=== PATIENT | female | born 1930 | race Caucasian/White ===

== ENCOUNTER 2017-06-28 21:51 | Emergency (ER) | payer MEDICARE, OTHER ==
[~2017-06-28] VITALS: Ht 165.1 cm; Wt 48.3 kg
[~2017-06-28 21:51] MED LIST: ASPI-586 PO; CEPH-38 PO; CLOP75TA28 PO; DILT180C84 PO; HYDR1CAP2 PO; LISI10TA2 PO; PRD50T PO; RIVA15TA PO
--- OUTSIDE RECORDS SUMMARY | 2017-06-28 21:55 | XMS REPORT | Continuity of Care Document ---
Author Author [facility] Organization [facility] Address Unknown Phone Unavailable Allergies Active Description Code Type Severity Reaction Onset Reported/Identified Relationship to Patient Clinical Status Yes No Known Drug Allergies [id number] Drug Allergy Unknown N/ A 05/17/2010 Medications Problems Date Dx Coded Attending Type Code Diagnosis Diagnosed By 05/17/2010 Ot 724.2 05/17/2010 Ot 729.5 05/24/2010 Ot 473.0 05/24/2010 Ot 729.1 05/24/2010 Ot 729.5 05/24/2010 Ot 780.79 05/24/2010 Ot 791.9 04/08/2012 Ot 682.6 05/08/2015 Ot 721.3 05/08/2015 Ot 733.90 05/08/2015 Ot 737.30 05/10/2015 QAMAR OLSON FACC, ALI FACP CCDS Ot I25.10 05/10/2015 QAMAR OLSON FACC, ALI FACP CCDS Ot I25.110 05/10/2015 QAMAR OLSON FACC, ALI FACP CCDS Ot I25.5 05/10/2015 QAMAR OLSON FACC, ALI FACP CCDS Ot I45.10 05/10/2015 QAMAR OLSON FACC, ALI FACP CCDS Ot I47.1 05/10/2015 QAMAR OLSON FACC, ALI FACP CCDS Ot I48.0 05/10/2015 QAMAR OLSON FACC, ALI FACP CCDS Ot I50.22 05/10/2015 QAMAR OLSON FACC, ALI FACP CCDS Ot I50.9 05/10/2015 QAMAR OLSON FACC, ALI FACP CCDS Ot I83.022 05/10/2015 QAMAR OLSON FACC, ALI FACP CCDS Ot I83.222 05/10/2015 QAMAR OLSON FACC, ALI FACP CCDS Ot I87.2 05/10/2015 QAMAR OLSON FACC, ALI FACP CCDS Ot L97.229 05/10/2015 QAMAR OLSON FACC, ALI FACP CCDS Ot R73.01 05/10/2015 QAMAR OLSON FACC, ALI FACP CCDS Ot Z82.49 05/10/2015 QAMAR OLSON FACC, ALI FACP CCDS Ot Z86.79 05/21/2015 Ot 721.3 05/21/2015 Ot 733.90 05/21/2015 Ot 737.30 06/13/2015 QAMAR OLSON FACC, ALI FACP CCDS Ot I25.10 06/13/2015 QAMAR OLSON FACC, ALI FACP CCDS Ot I25.5 06/13/2015 QAMAR OLSON FACC, ALI FACP CCDS Ot I50.22 06/13/2015 QAMAR LEBLANCC, ALI FACP CCDS Ot M79.89 09/21/2015 Ot 721.3 09/21/2015 Ot 733.90 09/21/2015 Ot 737.30 09/21/2015 QAMAR LEBLANCC, ALI FACP CCDS Ot I25.10 09/21/2015 QAMAR LEBLANC, ALI FACP CCDS Ot I25.5 09/21/2015 QAMAR LEBLANC, ALI FACP CCDS Ot I50.22 09/21/2015 QAMAR LEBLANC, ALI FACP CCDS Ot M79.89 10/17/2015 ELEN LOZANO MEDICAL ADMINISTRATIVE SPECIALIST Ot I25.10 10/17/2015 ELEN LOZANO L MEDICAL ADMINISTRATIVE SPECIALIST Ot I25.5 10/17/2015 ELEN LOZANO L MEDICAL ADMINISTRATIVE SPECIALIST Ot I50.22 10/25/2015 QAMAR LEBLANCC, ALI FACP CCDS Ot I25.10 10/25/2015 QAMAR OLSON FACC, ALI FACP CCDS Ot I25.5 10/25/2015 QAMAR OLSON FACC, ALI FACP CCDS Ot I50.22 10/25/2015 QAMAR LEBLANCC, ALI FACP CCDS Ot Z91.14 11/08/2015 QAMAR LEBLANCC, ALI FACP CCDS Ot I25.10 11/08/2015 QAMAR LEBLANCC, ALI FACP CCDS Ot I25.5 11/08/2015 QAMAR LEBLANCC, ALI FACP CCDS Ot I50.22 11/08/2015 QAMAR LEBLANCC, ALI FACP CCDS Ot Z91.14 11/30/2015 QAMAR OLSON FACC, ALI FACP CCDS Ot I25.10 ATHSCL HEART DISEASE OF [place] CORONARY 11/30/2015 QAMAR OLSON FACC, DAWNA FACP CCDS Ot 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 11/30/2015 QAMAR OLSON FACC, DAWNA FACP CCDS Ot I50.22 CHRONIC SYSTOLIC (CONGESTIVE) HEART FAIL 11/30/2015 QAMAR OLSON FACC, DAWNA FACP CCDS Ot Z91.14 PATIENT'S OTHER NONCOMPLIANCE WITH MEDIC Procedures Results Encounters ACCT No. Visit Date/Time Discharge Status Pt. Type Provider Facility Loc./Unit Complaint [id number] 11/07/2015 13:41:00 2015 23:59:59 CLS Outpatient QAMAR OLSON FACC ALI FACP CCDS [facility] LAB [id number] 10/03/2015 12:15:00 2015 23:59:59 CLS Outpatient QAMAR OLSON FACC ALI FACP CCDS [facility] CARD [id number] 09/21/2015 14:10:00 2015 23:59:59 CLS Outpatient ELEN LOZANO [facility] LAB [id number] 05/21/2015 08:29:00 2014 23:59:59 CLS Outpatient QAMAR OLSON FACC ALI FACP CCDS [facility] LAB [id number] 05/15/2015 14:40:00 2014 23:59:59 CLS Preadmit GLORIA LEE MD [facility] WOUNDCARE [id number] 05/06/2015 20:38:00 2014 18:47:00 DIS Inpatient QAMAR OLSON FACC ALI FACP CCDS [facility] ICU [id number] 06/28/2017 21:52:00 ACT Emergency DEMETRIA DELGADO MD [facility] ER LEG INJ [id number] 05/08/2015 14:29:00 Document Registration [id number] 04/08/2012 18:10:00 Document Registration [id number] 11/22/2010 11:38:00 Document Registration [id number] 05/24/2010 13:57:00 Document Registration
[2017-06-28] MEDS ORDERED: fentaNYL INJECTION 100 MCG/2 ML AMP IVP STA (22:02)
--- NOTE | 2017-06-28 22:02 | ED Lower Extremity ---
General Chief Complaint: Lower Extremity Stated Complaint: LEG INJ Source: patient Exam Limitations: no limitations History of Present Illness Time seen by provider: 21:46 Initial Comments Here with complaint of left leg injury. This occurred about 1730 p.m. tonight. Apparently she was going into putting a load of laundry when she stumbled. She caught her leg on a powerbuilder and cut it. This caused her to sit back onto her left hip. Apparently she had a bruise developing and she put an ice pack on it that got somewhat worse. A tourniquet was apparently applied at some point and the wound developed a very large hematoma that was expanding. EMS was ultimately summoned. They did cover it with a dressing after the wound started oozing through. Complains of pain to the area of injury as well as to the left hip. Denies hitting her head. She is on blood thinners. Did not take her medicine earlier today apparently. She does not know why she did not take her medicines. Complains of some pain to the area of concern. EMS wrapped with gauze and Kerlix. Onset: this evening Severity: moderate Pain/Injury Location: left hip, left leg Method of Injury: fell, incised Modifying Factors: Improves With Immobilization, Worse With Movement Allergies and Home Medications Allergies Coded Allergies: No Known Drug Allergies (Unverified , 05/17/10) Home Medications Clopidogrel Bisulfate 75 Mg Tablet, 75 MG PO DAILY, #30 Ref 5 Prescribed by: ELEN LOZANO on 05/10/15 0853 Diltiazem HCl 180 Mg Cap.er.24h, 180 MG PO DAILY, #30 Ref 5 Prescribed by: ELEN LOZANO on 05/10/15 0853 Lisinopril 10 Mg Tablet, 10 MG PO DAILY, #30 Ref 5 Prescribed by: ELEN LOZANO on 05/10/15 0951 Rivaroxaban 15 Mg Tablet, 15 MG PO DAILY@1700, #30 Ref 5 Prescribed by: ELEN LOZANO on 05/10/15 0853 Constitutional: see HPI, No chills, No fever Respiratory: no symptoms reported, No short of breath, No wheezing Cardiovascular: no symptoms reported, No chest pain, No edema Gastrointestinal: No abdominal pain, No nausea, No vomiting Genitourinary: no symptoms reported Musculoskeletal: see HPI, joint pain, muscle pain Skin: see HPI, change in color, lesions, No rash Psychiatric/Neurological: No Symptoms Reported All Other Systems Reviewed Negative Unless Noted: Yes Past Omyjchs-Frmprg-Frrihz Hx Patient Social History Alcohol Use: Denies Use Recreational Drug Use: No Smoking Status: Never a Smoker 2nd Hand Smoke Exposure: No Recent Foreign Travel: No Contact w/Someone Who Travel: No Recent Hopitalizations: No Immunizations Up To Date Tetanus Booster (TDap): Unknown Seasonal Allergies Seasonal Allergies: No Surgeries History of Surgeries: Yes Surgeries: 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 Respiratory History of Respiratory Disorde: No Cardiovascular History of Cardiac Disorders: No (AL [place] 86) Cardiac Disorders: Heart Attack Neurological History of Neurological Disord: No 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: 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 Gastrointestinal History of Gastrointestinal Di: No Musculoskeletal History of Musculoskeletal Dis: No Endocrine History of Endocrine Disorders: No HEENT HEENT Disorders: Glaucoma Cancer History of Cancer: Yes (2010) Cancer: Skin Psychosocial History of Psychiatric Problem: No Integumentary History of Skin or Integumenta: No Blood Transfusions History of Blood Disorders: No Adverse Reaction to a Blood Tr: No Reviewed Nursing Assessment Reviewed/Agree w Nursing PMH: Yes Family Medical History Significant Family History: No Pertinent Family Hx Family Medial History: Hypertension 19 FATHER Physical Exam Vital Signs Vital Sign - Last 12Hours 06/28/ 21:55 Temp 97.1 Pulse 91 Resp 16 B/P (MAP) 167/108 Pulse Ox 97 O2 Delivery Room Air Capillary Refill : General Appearance: WD/WN, mild distress (leg pain) HEENT: PERRL/EOMI, pharynx normal, other (no evidence of head injury) Neck: full range of motion, supple Cardiovascular: regular rate, rhythm, no murmur Respiratory: lungs clear, normal breath sounds Gastrointestinal: non tender, soft Back: normal inspection, no CVA tenderness, no vertebral tenderness Hips: left hip other (mild tenderness to the left hip without any deformity or bruising noted.) Legs: left leg other (8 cm laceration to the lateral aspect of the left lower leg. There is a large hematoma within the wound and the skin is tented quite significantly. Wound extends into the fascial layer but not into the muscle.) Knees: bilateral knee non-tender, bilateral knee normal inspection Ankles: bilateral ankle non-tender, bilateral ankle normal inspection, bilateral ankle normal range of motion, bilateral ankle no evidence of injury Feet: bilateral foot non-tender, bilateral foot normal inspection, bilateral foot normal range of motion Neurologic/Psychiatric: alert, oriented x 3 Skin: ecchymosis (large area of ecchymosis to the lateral left leg under skin wound with large clot arresting from wound.), other (entire as noted above.) Progress/Results/Core Measures Results/Orders Lab Results Laboratory Tests Test 06/28/17 21:57 06/28/17 22:29 Range/Units White Blood Count 5.7 4.3-11.0 10^3/uL Red Blood Count 4.04 L 4.35-5.85 10^6/uL Hemoglobin 13.0 11.5-16.0 G/DL Hematocrit 39 35-52 % Mean Corpuscular Volume 97 80-99 FL Mean Corpuscular Hemoglobin 32 25-34 PG Mean Corpuscular Hemoglobin Concent 33 32-36 G/DL Red Cell Distribution Width 13.3 10.0-14.5 % Platelet Count 202 130-400 10^3/uL Mean Platelet Volume 9.7 7.4-10.4 FL Neutrophils (%) (Auto) 48 42-75 % Lymphocytes (%) (Auto) 39 12-44 % Monocytes (%) (Auto) 13 H 0-12 % Eosinophils (%) (Auto) 1 0-10 % Basophils (%) (Auto) 0 0-10 % Neutrophils # (Auto) 2.8 1.8-7.8 X 10^3 Lymphocytes # (Auto) 2.2 1.0-4.0 X 10^3 Monocytes # (Auto) 0.7 0.0-1.0 X 10^3 Eosinophils # (Auto) 0.0 0.0-0.3 10^3/uL Basophils # (Auto) 0.0 0.0-0.1 10^3/uL Sodium Level 140 135-145 MMOL/L Potassium Level 5.0 3.6-5.0 MMOL/L Chloride Level 106 98-107 MMOL/L Carbon Dioxide Level 25 21-32 MMOL/L Anion Gap 9 5-14 MMOL/L Blood Urea Nitrogen 31 H 7-18 MG/DL Creatinine 0.84 0.60-1.30 MG/DL Estimat Glomerular Filtration Rate > 60 BUN/Creatinine Ratio 37 Glucose Level 110 H 70-105 MG/DL Calcium Level 8.6 8.5-10.1 MG/DL Total Bilirubin 0.6 0.1-1.0 MG/DL Aspartate Amino Transf (AST/SGOT) 27 5-34 U/L Alanine Aminotransferase (ALT/SGPT) 22 0-55 U/L Alkaline Phosphatase 92 40-136 U/L Total Protein 6.5 6.4-8.2 GM/DL Albumin 3.7 3.2-4.5 GM/DL My Orders Orders - DEMETRIA DELGADO MD Pelvis With Left Hip 2-3 Views (06/28/17 21:59) Cbc With Automated Diff (06/28/17 21:59) Comprehensive Metabolic Panel (06/28/17 21:59) Fentanyl Injection (Sublimaze Injection (06/28/17 22:02) Lisinopril Tablet (Zestril Tablet) (06/28/17 23:00) Cephalexin Capsule (Keflex Capsule) (06/28/17 23:16) Medications Given in ED Current Medications Medications Dose Ordered Sig/Isaac Route Start Time Stop Time Status Last Admin Dose Admin Lisinopril 10 mg ONCE ONCE PO 06/28/17 23:00 06/28/17 23:01 DC 06/28/17 22:59 10 MG Vital Signs/I&O Vital Sign - Last 12Hours 06/28/17 06/28/17 06/28/17 21:55 22:07 23:29 Temp 97.1 97.1 Pulse 91 81 Resp 16 16 B/P (MAP) 167/108 134/102 Pulse Ox 97 97 O2 Delivery Room Air Room Air Progress Note : Progress Note Seen and evaluated. Labs ordered. X-ray left hip and pelvis ordered. Wound evaluated and noted to have large clot within the wound. This was expressed and clot totaling the size of a tennis ball expressed from the wound. Wound was cleaned with copious amounts of normal saline and covered with Xeroform gauze dressing. This appears to be skin tear with clot formation. Reportedly, family member applied a tourniquet above wound with bleeding was noted and this caused significant worsening of size and ultimately bleeding began. Patient was not bleeding prior to this per report. It appears bruising was the result of the initial injury and skin tear and laceration was result of significant hematoma formation. 2320: Lisinopril 10 mg by mouth given. Keflex 500 mg by mouth. Blood pressure decreased to 134/102 and patient resting comfortably. We will continue her on outpatient Keflex 3 times a day and have her follow-up for wound check on Thursday. Discharged home with return precautions. Patient verbalize understanding of instructions and agreement with plan. Diagnostic Imaging Diagonstic Imaging: Xray Plain Films/CT/US/NM/MRI: pelvis, hip Comments X-ray left hip and pelvis shows no acute fracture Reviewed: Reviewed by Me Departure Impression Impression: Primary Impression: Laceration of left lower extremity Qualified Codes: S81.812A - Laceration without foreign body, left lower leg, initial encounter Additional Impression: Hematoma of left lower extremity Qualified Codes: S80.12XA - Contusion of left lower leg, initial encounter Disposition: HOME, SELF-CARE Condition: Improved Departure-Patient Inst. Decision time for Depature: 23:30 Referrals: NO,LOCAL PHYSICIAN (PCP/Family) Primary Care Physician Patient Instructions: HEMATOMA, Laceration Repair Add. Discharge Instructions: All discharge instructions reviewed with patient and/or family. Voiced understanding. Keep dressing in place until Thursday. Return Thursday morning after 1030 for a wound recheck and redressing. Take medications as directed. You may change dressing if it becomes soiled but otherwise leave in place until wound check on Thursday. You may use ice packs over the affected area for pain as needed. Return for worse pain, fever, red streaks up the leg, increased swelling or other concerns as needed. Follow-up with your Dr. in a few days for recheck as needed. You should get local physician for generalized care other than the service now developer as discussed. Scripts Cephalexin (Cephalexin) 500 Mg Tablet 500 MG PO TID, #20 TAB 0 Refills Prov: DEMETRIA DELGADO MD 06/29/17 DEMETRIA DELGADO MD Jun 28, 2017 22:02
[2017-06-28 22:06] LABS: BASOPHILS % (AUTO) 0 % (0-10); EOSINOPHILS % (AUTO) 1 % (0-10); LYMPHOCYTES # (AUTO) 2.2 X 10^3 (1.0-4.0); LYMPHOCYTES % (AUTO) 39 % (12-44); MEAN CORPUSCULAR HEMOGLOBIN 32 PG (25-34); MEAN CORPUSCULAR HGB CONC 33 G/DL (32-36); MEAN CORPUSCULAR VOLUME 97 FL (80-99); MEAN PLATELET VOLUME 9.7 FL (7.4-10.4); MONOCYTES # (AUTO) 0.7 X 10^3 (0.0-1.0); MONOCYTES % (AUTO) 13 % (0-12); NEUTROPHILS # (AUTO) 2.8 X 10^3 (1.8-7.8); NEUTROPHILS % (AUTO) 48 % (42-75); PLATELET COUNT 202 10^3/uL (130-400); RED BLOOD COUNT 4.04 10^6/uL (4.35-5.85); RED CELL DISTRIBUTION WIDTH 13.3 % (10.0-14.5); WHITE BLOOD COUNT 5.7 10^3/uL (4.3-11.0)
[2017-06-28 22:56] LABS: ALANINE AMINOTRANSFERASE 22 U/L (0-55); ALBUMIN 3.7 GM/DL (3.2-4.5); ANION GAP 9 MMOL/L (5-14); ASPARTATE AMINO TRANSFERASE 27 U/L (5-34); BILIRUBIN,TOTAL 0.6 MG/DL (0.1-1.0); BLOOD UREA NITROGEN 31 MG/DL (7-18); BUN/CREATININE RATIO 37; CALCIUM 8.6 MG/DL (8.5-10.1); CARBON DIOXIDE 25 MMOL/L (21-32); CHLORIDE 106 MMOL/L (98-107); CREATININE SERUM 0.84 MG/DL (0.60-1.30); GFR ESTIMATED > 60; GLUCOSE 110 MG/DL (70-105); SODIUM 140 MMOL/L (135-145); TOTAL PROTEIN 6.5 GM/DL (6.4-8.2)
[2017-06-28] MEDS ORDERED: lisINopril 10 MG (PRINIVIL) TAB PO ONE (23:00)
[2017-06-28] MEDS ORDERED: CEPHALEXIN 250 MG (KEFLEX) CAP PO STA (23:16)
[2017-06-28 23:29] VITALS: BP 134/102
[2017-06-29] MEDS ORDERED: CEPH500T PO (00:14)
[2017-06-29 00:27] VITALS: BP 132/99
--- NOTE | 2017-06-29 08:40 | Diagnostic Imaging Report ---
INDICATION: Fall with left hip pain, soreness. TECHNIQUE: AP pelvis along with 2 views left hip 10:39 PM. CORRELATION STUDY: None. FINDINGS: Large amount of overlying bowel gas and stool obscures detail. Given this, the pelvis is intact. Degenerative changes at the L4-L5 level. Right hip joint with mild narrowing but otherwise maintained. Left hip demonstrates joint space narrowing. Femoral head/acetabular relationship otherwise maintained. Mild osteophyte formation off the superior aspect of the acetabulum. IMPRESSION: Negative for acute displaced pelvic and/or left hip fracture. Joint space narrowing of both hips is present. Dictated by: Dictated on workstation # [id number]
== END 2017-06-29 00:12 | disposition home or self-care (01) ==
LOC: EDUNIT# 21:51 → ER 21:52
DX: S81.812A Laceration without foreign body, left lower leg, initial encounter (principal); I25.2 Old myocardial infarction; Z90.710 Acquired absence of both cervix and uterus; W29.2XXA Contact with other powered household machinery, initial encounter
CPT/HCPCS: 36415; 80053; 85025

== ENCOUNTER 2017-06-30 10:47 | Emergency (ER) | payer MEDICARE, OTHER ==
[~2017-06-30] VITALS: Ht 165.1 cm; Wt 48.3 kg
[~2017-06-30 10:47] MED LIST changes: +CEPH500T PO
--- NOTE | 2017-06-30 11:24 | ED Suture Removal/Wound Check ---
Suture/Wound Re-check General Appearance: WD/WN, no apparent distress Skin Exam: normal color, warm/dry Physical Exam Vital Signs Vital Sign - Last 12Hours 06/30/17 11:13 Pulse 72 Resp 18 B/P (MAP) 129/66 Pulse Ox 98 O2 Delivery Room Air Capillary Refill : General Appearance: WD/WN Respiratory: no respiratory distress, no accessory muscle use Gastrointestinal: non tender, soft Skin: normal color, warm/dry Skin Problem Location: lower extremities (large traumatic wound to the left lateral lower leg. No surrounding erythema. No purulent drainage. Small amount of sinus drainage. We will recover with oil emulsion dressing, 2 x 2, coban) Comments Pt does have 2 corns on her foot, one on the heel and one on the forefoot. These are painful when she walks and son believes she may have had pain from this which initially caused the fall the other day. I did use a 10blade scalpel to shave these down, the one on the heel got a bit deep and did begin to ooze blood so further shaving of this lesion was discontinued. Covered with antibiotic ointment and bandaid. Upon standing, pt reported immediate improvement in the pain from putting pressure on these. Departure Communication (Admissions) Progress Notes I did make an appointment for the patient with Dr. Figueroa at [facility] wound care tomorrow at 930 in the morning. Pt has some brownish discoloration and scaling of medial aspect of the right leg of PVD so Im concerned about wound healing in her. Impression Impression: Primary Impression: Traumatic open wound of lower leg Additional Impression: Visit for wound check Disposition: 01 HOME, SELF-CARE Condition: Stable Departure-Patient Inst. Decision time for Depature: 11:43 Referrals: BELTRAN MITCHELL MD NO,LOCAL PHYSICIAN (PCP) Primary Care Physician Patient Instructions: Wound Care (DC) Add. Discharge Instructions: 1. Leave this dressing in place until you are seen by Dr. Figueroa. He will see her tomorrow morning at 930 here in the hospital. She should arrive at 915 a.m. All discharge instructions reviewed with patient and/or family. Voiced understanding. KELLY SIMENTAL APRN Jun 30, 2017 11:24
[2017-06-30 11:50] VITALS: BP 129/66
== END 2017-06-30 11:50 | disposition home or self-care (01) ==
LOC: EDUNIT# 10:47 → ER 10:49
DX: S89.92XD Unspecified injury of left lower leg, subsequent encounter (principal); W19.XXXD Unspecified fall, subsequent encounter

== ENCOUNTER → 2017-07-02 | Outpatient (CLI) | payer MEDICARE, OTHER | LOC: WOUNDCARE 14:08 | PROVIDERS: ATTEND Nurse Practitioner | DX: S81.812D Laceration without foreign body, left lower leg, subsequent encounter (principal); L03.116 Cellulitis of left lower limb ==

== ENCOUNTER → 2017-07-08 | Outpatient (CLI) | payer MEDICARE, OTHER ==
[~2017-07-08] MED LIST changes: +ACET325T38 PO; +ASPI-983 PO; +ASPI-999 PO; +CLOP75TA69 PO; +LISI-556 PO; +METO-351 PO; +NAPR220T66 PO
== END ==
LOC: WOUNDCARE 12:51
PROVIDERS: ATTEND Surgery
DX: I70.242 Atherosclerosis of native arteries of left leg with ulceration of calf (principal); L97.222 Non-pressure chronic ulcer of left calf with fat layer exposed; I87.332 Chronic venous hypertension (idiopathic) with ulcer and inflammation of left lower extremity; S81.812A Laceration without foreign body, left lower leg, initial encounter
CPT/HCPCS: 99212

== ENCOUNTER 2017-07-10 12:22 | Day surgery (SDC) | payer MEDICARE, OTHER ==
[~2017-07-10] VITALS: Ht 165.1 cm; Wt 48.3 kg
[2017-07-10] VITALS (12 sets, daily range): BP systolic 141–170; BP diastolic 71–101
[~2017-07-10 12:22] MED LIST changes: -ACET325T38 PO; -ASPI-983 PO; -ASPI-999 PO; -CLOP75TA69 PO; -LISI-556 PO; -METO-351 PO; -NAPR220T66 PO
[2017-07-10] MEDS ORDERED: HEParin (CATH LAB) 2,000 ML IV ONE (12:30)
[2017-07-10] MEDS ORDERED: LIDOCAINE 1% INJ 50 ML (XYLOCAINE) VIAL ONE (12:30)
[2017-07-10] MEDS ORDERED: NS IV 1000 ML 1,000 ML ONE (12:30)
[2017-07-10] MEDS ORDERED: NS IV 1000 ML 1,000 ML IV SCH ×3 (12:45→16:38)
[2017-07-10 12:58] LABS: MEAN PLATELET VOLUME 9.4 FL (7.4-10.4); RED BLOOD COUNT 3.75 10^6/uL (4.35-5.85); RED CELL DISTRIBUTION WIDTH 13.8 % (10.0-14.5); WHITE BLOOD COUNT 5.8 10^3/uL (4.3-11.0)
[2017-07-10 13:10] LABS: INR 1.2 (0.8-1.4); PROTHROMBIN TIME PATIENT 14.8 SEC (12.2-14.7)
[2017-07-10] MEDS ORDERED: ASPI-983 PO (13:12)
[2017-07-10] MEDS ORDERED: LISI-556 PO (13:13)
[2017-07-10] MEDS ORDERED: MIDAZOLAM 2 MG/2 ML (VERSED) VIAL ONE ×2 (13:14→14:35)
[2017-07-10] MEDS ORDERED: diphenhydrAMINE 50 MG/ML INJ (BENADRYL) ONE (13:14)
[2017-07-10] MEDS ORDERED: fentaNYL INJECTION 100 MCG/2 ML AMP ONE (13:14)
[2017-07-10] MEDS ORDERED: NAPR220T66 PO (13:15)
[2017-07-10 13:21] LABS: ALANINE AMINOTRANSFERASE 14 U/L (0-55); ANION GAP 11 MMOL/L (5-14); ASPARTATE AMINO TRANSFERASE 19 U/L (5-34); BILIRUBIN,TOTAL 0.7 MG/DL (0.1-1.0); BLOOD UREA NITROGEN 27 MG/DL (7-18); BUN/CREATININE RATIO 32; CARBON DIOXIDE 23 MMOL/L (21-32); CHLORIDE 106 MMOL/L (98-107); CREATININE SERUM 0.84 MG/DL (0.60-1.30); GFR ESTIMATED > 60; GLUCOSE 99 MG/DL (70-105); POTASSIUM 4.7 MMOL/L (3.6-5.0); SODIUM 140 MMOL/L (135-145); TOTAL PROTEIN 7.2 GM/DL (6.4-8.2)
[2017-07-10] MEDS ORDERED: INFLUENZA TRIvalent 2017-2018 0.5 ML/45 MCG SYR IM ONE (14:00)
[2017-07-10] MEDS ORDERED: HEParin 1000 UNIT/ML (10ML VIAL) FOR BOLUS ONE (14:21)
[2017-07-10] MEDS ORDERED: NITROGLYCERIN DRIP 25 MG/D5W 250 ML IV ONE (15:53)
--- NOTE | 2017-07-10 16:37 | Cardiac Procedure Note-CS/ASA ---
Pre-Procedure Note Pre-Op Procedure Note H&P Reviewed The H&P was reviewed, patient examined and no changes noted. Date H&P Reviewed: Jul 10, 2017 Time H&P Reviewed: 14:00 Conscious Sedation Pre-Proced Time Reviewed: 14:00 ASA Class: 3 Airway Mallampati Classification: ([place] appropriate class) I. II. III, IV Lungs Heart ASA score ASA 1: a normal healthy patient ASA 2: a patient with a mild systemic disease (mid diabetes, controlled hypertension, obesity ASA 3: a patient with a severe systemic disease that limits activity (angina , COPD, prior Myocardial infarction) ASA 4: a patient with an incapacitating disease that is a constant threat to life (CHF, renal failure) ASA 5: a moribund patient not expected to survive 24 hrs. (ruptured aneurysm) ASA 6: a declared brain patient whose organs are being harvested. For emergent operations, add the letter E after the classification Grade 2 Sedation Plan: Analgesia, Amnesia, Plan communicated to team members, Discussed options with patient/fam, Discussed risks with patient/fam Note The patient is an appropriate candidate to undergo the planned procedure, sedation, and anesthesia. The patient immediately re-assessed prior to indication. DAWNA FOOTE MD FACP FAC CCDS Jul 10, 2017 16:37
[2017-07-10] MEDS ORDERED: ASPIRIN 81 MG CHEW (CHILDREN'S ASA) ONE (16:39)
[2017-07-10] MEDS ORDERED: CLOPIDOGREL 75 MG (PLAVIX) TABLET ONE ×2 (16:39→16:51)
[2017-07-10] MEDS ORDERED: ACETAMINOPHEN 325 MG TABLET/CAPLET (TYLENOL) PO PRN (16:45)
[2017-07-10] MEDS ORDERED: PATIENT MAY USE OWN MEDS, ALL PO SCH (16:45)
--- NOTE | 2017-07-10 17:09 | Cardiology Discharge Summary ---
Diagnosis/Chief Complaint Date of Admission 07/10/17 Date of Discharge 07/11/17 Final/Discharge Diagnosis Non-healing wound on the lateral aspect of L leg (leading to peripheral arterial eval and interventions to the L leg, as noted below) PAD. Peripheral angio of 07/10/17: ectatic abdominal aorta, aorto-iliac calcification, mod dz of renal arteries, diffuse mod disease of both sup fems, 90% ostial and prox stenosis of the L sup fem, single vessel (ant tibial) run off in both legs with 90% ostial stenoses of both ant tibs Peripheral PCI on 07/10/17: balloon angioplasty of ostial L ant tib that reduced 90% ostial stenosis to less than 30% residual, balloon angioplasty and stenting (Absolute Pro 7 x 80 stent, dilated to 5 mm wilder) to the L prox sup fem that reduced stenosis form 90% to 0% residual Ischemic cardiomyopathy. Card cath of 05/08/15 showed coronary artery disease, primarily single-vessel, primarily consisting of 90% mid vessel stenosis of the left anterior descending, to which successful stenting was carried out with Promus Premier 3 x 12 mm stent with reduction of stenosis to 0% residual. 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 She has refused ICD placement Hypertension Impaired fasting glucose Family h/o early CAD 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 u/s of 02/15/16 Noncompliance with several med instructions and several meds (including beta- blockers and diuretics and statins) Chief Complaint/HPI Chief Complaint/HPI Please refer to H&P (office note of 07/08/17) for details of admission Please refer to peripheral angio and PCI report for details of procedure Plavix resumed during this hosp Have also asked to try beta-blockers again Outpatient f/u is advised Discharge Summary Hospital Course Pending Labs Laboratory Tests 07/10/17 12:52: White Blood Count 5.8, Red Blood Count 3.75, Hemoglobin 12.1, Hematocrit 37, Mean Corpuscular Volume 100, Mean Corpuscular Hemoglobin 32, Mean Corpuscular Hemoglobin Concent 32, Red Cell Distribution Width 13.8, Platelet Count 340, Mean Platelet Volume 9.4, Prothrombin Time 14.8, INR Comment 1.2, Activated Partial Thromboplast Time 33, Sodium Level 140, Potassium Level 4.7, Chloride Level 106, Carbon Dioxide Level 23, Anion Gap 11, Blood Urea Nitrogen 27, Creatinine 0.84, Estimat Glomerular Filtration Rate > 60, BUN/Creatinine Ratio 32, Glucose Level 99, Calcium Level 9.0, Total Bilirubin 0.7, Aspartate Amino Transf (AST/SGOT) 19, Alanine Aminotransferase (ALT/SGPT) 14, Alkaline Phosphatase 104, Total Protein 7.2, Albumin 4.0 Discussion & Recommendations Home Medications Reviewed patient Home Medication Reconciliation Form Discharge Home Medications: Reviewed and agree with Discharge Medication list on patient's Discharge Instruction sheet DAWNA FOOTE MD FACP FAC CCDS Jul 10, 2017 17:09
--- NOTE | 2017-07-10 17:14 | Discharge Inst-Post CATH ---
Discharge Inst-CATH Post Cardiac Cath D/C Inst Follow Up/Plan F/u with Dr Myers in 1-2 weeks CARDIAC CATH DISCHARGE INSTRUCTIONS *Hold Metformin for 48 hours post heart cath. ACTIVITY * Go Home directly and rest. * Limit activity of the leg (or wrist if it was used) for 7 days including aerobics, swimming, jogging, bicycling, etc. * Restrict stair-climbing for 7 days if possible, if not, climb up with your non -cath leg, then bring together on the same step. * Avoid lifting, pushing, pulling or excessive movement of the affected extremity for 7 days. * Customary sexual activity may be resumed after 2 days-use caution not to use a position that strains or causes pain to the affected extremity. * No driving for 24 hours. * NO SMOKING. * Avoid straining for bowel movements for 7 days. * Gentle walking on level ground is allowed. * Returning to work will depend on the type of procedure and the results. Your doctor will discuss this with you. CALL YOUR DOCTOR FOR ANY OF THE FOLLOWING: *If bleeding from the puncture site occurs- Apply gentle pressure to site with clean cloth and call your doctor or EMS. * If a knot or lump forms under the skin, increases in size, or causes pain. * If bruising appears to be worsening or moving further down your leg instead of disappearing. * Temperature above 101 F. CARE OF YOUR GROIN INCISION; * Bruising or purple discoloration of the skin near the puncture site is common. * You may shower only, no bathtub bathing for 5 days. Be careful to avoid slipping as your leg may feel stiff. * If a closure device was used on your femoral artery, please see the attached guide regarding care of the device and your leg. * REMOVE the dressing from your groin the next day after your procedure in the shower. CARE OF YOUR WRIST INCISION; * Bruising or purple discoloration of the skin near the puncture site is common. * You may shower. * DO NOT submerge wrist. * Remove dressing in 24 hours. DAWNA MYERS MD [facility] CCDS Jul 10, 2017 17:13
[2017-07-10] MEDS ORDERED: CLOP75TA69 PO (17:17)
[2017-07-10] MEDS ORDERED: ASPI-999 PO (17:17)
[2017-07-10] MEDS ORDERED: ACET325T38 PO (17:17)
[2017-07-10] MEDS ORDERED: METO-351 PO (17:17)
--- NOTE | 2017-07-10 22:35 | OPERATIVE REPORT ---
DATE OF SERVICE: 07/10/2017 PERIPHERAL ANGIOGRAPHY AND INTERVENTION REPORT INDICATION: The patient is an 86-year-old lady who has multiple coronary artery disease and peripheral arterial disease risk factors. She has recently had a nonhealing wound on the lateral aspect of the left leg, which is being followed by the wound clinic and noninvasive workup for peripheral arterial disease indicated significant disease on the left side. Peripheral angiography was recommended with a possible ad hoc peripheral intervention. Informed consent was obtained. PROCEDURE: She was brought to the cardiac catheterization laboratory in a fasting state. Right groin was prepared and draped in usual sterile fashion with 1% lidocaine with local anesthesia. Modified Seldinger technique was used to advance a 5-Cymraes sheath in the right femoral artery. We used a 5-Cymraes pigtail catheter to carry out abdominal aortic angiography with the pigtail catheter placed at the level of L1. The catheter was then pulled back down to just above the aortoiliac bifurcation and bilateral leg artery angiography was carried out with runoff down to the level of the ankles. Subsequently, we carried out peripheral intervention that is described below. Peripheral intervention to the left anterior tibial artery. We used a crossover catheter to advance a guidewire with considerable difficulty into the left superficial femoral artery and we were then able to exchange the crossover catheter for a straight catheter, the tip of which was placed in the left superficial femoral artery (contralateral to the side of access). We were then able to use this catheter to advance a 0.035 inch wire into the left superficial femoral artery and the 5-Cymraes straight catheter and the sheath were removed and we were able to advance a long sheath over the wire with the sheath placed in the left superficial femoral artery (contralateral to the side of access). This allowed selective angiography of the left superficial femoral artery with runoff. We then carried out balloon angioplasty of the left ostial anterior tibial artery. We advanced a Command 0.014 inch wire across the lesion with the tip placed in the distal part of the left anterior tibial artery and we were then able to carry out balloon angioplasty, first with [place] 2.0 x 40 mm balloon and then [place] 2.5 x 40 mm balloon and then with armada 2.5 x 60 mm balloon. This reduced the stenosis from 90% to less than 30% residual. The left peroneal and the left posterior tibial arteries are chronically occluded in their ostial/proximal portions and were not intervened on. We then proceeded with balloon angioplasty to a 90% stenosis in the proximal/ostial portion of the left superficial femoral artery. We pulled the sheath back into the left common femoral artery and we were then able to carry out balloon angioplasty of the ostial and proximal left superficial femoral artery, first with a 3.0 x 60 mm balloon and then with a 4.0 x 60 mm balloon. This resulted in improvement of stenosis in the right ostial and proximal left superficial femoral artery, but did cause a dissection in the proximal portion of the left superficial femoral artery. We tried to tack this dissection with multiple balloons, including a 4.0 x 150 mm drug-eluting balloon. However, the dissection remained and appeared to be flow limiting. We removed the balloon and advanced an Absolute Pro 7.0 x 80 mm stent to the proximal left superficial femoral artery. This was carefully positioned so that the proximal edge of the stent extends right close to the ostium of the left superficial femoral artery without extending into the common femoral artery. This stent was deployed and this was subsequently post-dilated with a 5.0 x 100 mm balloon. Subsequent angiography revealed 0% stenosis in the proximal left superficial femoral artery, with normal antegrade flow. The patient tolerated the procedure well. The angioplasty equipment was removed. Angiography of the right femoral artery was carried out through the sheath after the long sheath has been exchanged for a short sheath. Subsequently, we used Mynx to achieve hemostasis following sheath removal. ABDOMINAL AORTIC ANGIOGRAPHY: Abdominal aortic angiography indicated an ectatic abdominal aorta, especially below the renal arteries. The renal arteries have moderate disease. There is a small superior left renal artery that has severe proximal stenosis, but a large inferior left renal artery, does not exhibit any significant stenosis. The right renal artery has approximately 60% proximal stenosis. There is moderate calcification of the abdominal aorta and the aortoiliac junction. BILATERAL LEG ARTERY ANGIOGRAPHY: Bilateral leg artery angiography revealed diffuse iliac artery calcification. There is approximately 40% proximal stenosis of the right common iliac artery. The right external iliac and the right common femoral arteries do not exhibit significant disease. The right superficial femoral artery has diffuse moderate disease. The right popliteal has diffuse moderate disease. The posterior tibial and the peroneal arteries are occluded on the right side. The right anterior tibial artery has 90% ostial stenosis. On the left side, there is diffuse moderate disease of the iliac artery and the common femoral artery. The left superficial femoral artery had 90% stenosis to which successful balloon angioplasty and stenting was carried out as described above. The rest of the left superficial femoral artery and the left popliteal artery has diffuse moderate disease. The left posterior tibial and peroneal arteries are occluded in their ostial/proximal portion. The left anterior tibial had 90% ostial stenosis to which successful balloon angioplasty was carried out with the reduction of stenosis to less than 30%, as detailed above. CONCLUSIONS: 1. 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 2. Moderate disease of the renal arteries. 3. Moderate diffuse disease of both superficial femoral arteries. 4. 90% ostial and proximal stenosis of the left superficial femoral artery to which successful stenting was carried out with Absolute Pro 7.0 x 80 mm stent, dilated with a 5 mm diameter balloon. 5. Single vessel runoff in both legs (anterior tibial). The right anterior tibial artery was not intervened on. The left anterior tibial artery was intervened on and, following balloon angioplasty, there is less than 30% residual stenosis. Job ID: [id number] DocumentID: [id number] Dictated Date: 07/10/2017 17:38:29 Management Rep Date: 07/10/2017 21:20:39 Dictated By: DAWNA FOOTE MD, MA, FACP, FACC, MTDD
[2017-07-11] VITALS: BP 150/70
[2017-07-11 04:00] VITALS: BP 150/71
[2017-07-11 04:33] LABS: MEAN PLATELET VOLUME 9.8 FL (7.4-10.4); RED BLOOD COUNT 3.49 10^6/uL (4.35-5.85); RED CELL DISTRIBUTION WIDTH 13.8 % (10.0-14.5); WHITE BLOOD COUNT 5.8 10^3/uL (4.3-11.0)
[2017-07-11 04:44] LABS: CREATININE SERUM 1.14 MG/DL (0.60-1.30); POTASSIUM 5.8 MMOL/L (3.6-5.0)
[2017-07-11 08:30] VITALS: BP 154/75
[2017-07-11] MEDS ORDERED: lisINopril 5 MG (PRINIVIL) TABLET PO SCH (09:00)
[2017-07-11] MEDS ORDERED: CLOPIDOGREL 75 MG (PLAVIX) TABLET PO SCH (09:00)
[2017-07-11] MEDS ORDERED: ASPIRIN 81 MG CHEW (CHILDREN'S ASA) PO SCH (09:00)
--- NOTE | 2017-07-11 09:53 | Cardiology Progress Note ---
Subjective Date Seen by Provider: Jul 11, 2017 Time Seen by Provider: 09:38 Subjective/Events-last exam Patient is in bed, feeling better, was concerned about use of beta blockers, I explained in length the beta blockers benefits and side effects. She agreed on taking the medication, I will hold lisinopril due to hyperkalemia Review of Systems General: No Chills, No Night Sweats, No Fatigue, No Malaise, No Appetite, No Other HEENT: No Head Aches, No Visual Changes, No Eye Pain, No Ear Pain, No Dysphasia , No Sinus Congestion, No Post Nasal Drip, No Sore Throat, No Other Pulmonary: No Dyspnea, No Cough, No Pleuritic Chest Pain, No Other Cardiovascular: No: Chest Pain, Palpitations, Orthopnea, Paroxysmal Noc. Dyspnea, Edema, Lt Headedness, Other Objective-Cardiology Exam Last Set of Vital Signs Vital Signs 07/11/17 07/11/17 04:00 07:00 Temp 98.3 Pulse 87 Resp 22 B/P (MAP) 150/71 (97) Pulse Ox 98 O2 Delivery Room Air Capillary Refill : Less Than 3 Seconds I&O Intake and Output 07/11/17 00:00 Intake Total 100 ml Output Total 400 ml Balance -300 ml Intake Oral 100 ml Output Urine Total 400 ml General: Alert, Oriented X3, Cooperative HEENT: Atraumatic, PERRLA Neck: Supple, No JVD, No Thyromegaly Lungs: Clear to Auscultation, Normal Air Movement Heart: Regular Rate, Normal S1, Normal S2, No Murmurs Abdomen: Normal Bowel Sounds, Soft, No Tenderness, No Hepatosplenomegaly, No Masses Extremities: No Clubbing, No Cyanosis, No Edema, Normal Pulses, No Tenderness/ Swelling Skin: Other (ulcer on the left foot) Neuro: Normal Gait, Normal Speech, Normal Tone, Sensation Intact Psych/Mental Status: Mental Status NL, Mood NL Results Lab Laboratory Tests 07/10/17 12:52 07/11/17 04:01 A/P-Cardiology Admission Diagnosis peripheral arterial disease Hypertension Hyperkalemia Assessment/Plan Peripheral arterial disease status post complex intervention done by Dr. Myers Hypertension, started on metoprolol. Continue to monitor, I will hold lisinopril Hyperkalemia, hold lisinopril. FERNANDO BERNARD MD Jul 11, 2017 09:53
[2017-07-11 10:58] VITALS: BP 154/75
== END 2017-07-11 10:58 | disposition home or self-care (01) ==
LOC: CATH 12:22 → ICU 16:55 → CATH 07-11 10:58
PROVIDERS: ATTEND Internal Medicine Cardiovascular Disease
DX: I70.242 Atherosclerosis of native arteries of left leg with ulceration of calf (principal); L97.222 Non-pressure chronic ulcer of left calf with fat layer exposed; I70.201 Unspecified atherosclerosis of native arteries of extremities, right leg; I77.811 Abdominal aortic ectasia; I25.10 Atherosclerotic heart disease of native coronary artery without angina pectoris; I70.1 Atherosclerosis of renal artery; I48.0 Paroxysmal atrial fibrillation; I11.0 Hypertensive heart disease with heart failure; I50.22 Chronic systolic (congestive) heart failure; I25.5 Ischemic cardiomyopathy; I45.10 Unspecified right bundle-branch block; R73.01 Impaired fasting glucose; Z79.01 Long term (current) use of anticoagulants; Z79.02 Long term (current) use of antithrombotics/antiplatelets; Z79.899 Other long term (current) drug therapy
CPT/HCPCS: 36415; 37226; 75630; 80048; 80053; 85027; 85610; 85730; 87081

== ENCOUNTER → 2017-07-15 | Outpatient (CLI) | payer MEDICARE, OTHER ==
[~2017-07-15] MED LIST changes: +ACET325T38 PO; +ASPI-983 PO; +ASPI-999 PO; +CLOP75TA69 PO; +LISI-556 PO; +METO-351 PO; +NAPR220T66 PO
== END ==
LOC: WOUNDCARE 15:11
PROVIDERS: ATTEND Surgery
DX: I70.242 Atherosclerosis of native arteries of left leg with ulceration of calf (principal); I87.332 Chronic venous hypertension (idiopathic) with ulcer and inflammation of left lower extremity; L97.222 Non-pressure chronic ulcer of left calf with fat layer exposed; S81.812A Laceration without foreign body, left lower leg, initial encounter
CPT/HCPCS: 99212

== ENCOUNTER → 2017-07-20 | Outpatient (CLI) | payer MEDICARE, OTHER ==
[2017-07-20 11:43] LABS: BASOPHILS % (AUTO) 1 % (0-10); EOSINOPHILS # (AUTO) 0.1 10^3/uL (0.0-0.3); EOSINOPHILS % (AUTO) 1 % (0-10); LYMPHOCYTES # (AUTO) 1.2 X 10^3 (1.0-4.0); LYMPHOCYTES % (AUTO) 24 % (12-44); MEAN CORPUSCULAR HEMOGLOBIN 32 PG (25-34); MEAN CORPUSCULAR HGB CONC 32 G/DL (32-36); MEAN CORPUSCULAR VOLUME 102 FL (80-99); MEAN PLATELET VOLUME 9.2 FL (7.4-10.4); MONOCYTES # (AUTO) 0.7 X 10^3 (0.0-1.0); MONOCYTES % (AUTO) 15 % (0-12); NEUTROPHILS % (AUTO) 60 % (42-75); PLATELET COUNT 329 10^3/uL (130-400); RED BLOOD COUNT 3.39 10^6/uL (4.35-5.85); RED CELL DISTRIBUTION WIDTH 14.1 % (10.0-14.5)
[2017-07-20 12:02] LABS: ALANINE AMINOTRANSFERASE 14 U/L (0-55); ALBUMIN 3.6 GM/DL (3.2-4.5); ANION GAP 8 MMOL/L (5-14); ASPARTATE AMINO TRANSFERASE 16 U/L (5-34); BILIRUBIN,TOTAL 0.5 MG/DL (0.1-1.0); BLOOD UREA NITROGEN 21 MG/DL (7-18); BUN/CREATININE RATIO 26; CALCIUM 8.5 MG/DL (8.5-10.1); CARBON DIOXIDE 27 MMOL/L (21-32); CHLORIDE 104 MMOL/L (98-107); CREATININE SERUM 0.81 MG/DL (0.60-1.30); GFR ESTIMATED > 60; GLUCOSE 63 MG/DL (70-105); MAGNESIUM 2.1 MG/DL (1.8-2.4); POTASSIUM 4.7 MMOL/L (3.6-5.0); SODIUM 139 MMOL/L (135-145); TOTAL PROTEIN 6.6 GM/DL (6.4-8.2)
== END ==
LOC: LAB 11:24
PROVIDERS: ATTEND Internal Medicine Cardiovascular Disease
DX: I50.22 Chronic systolic (congestive) heart failure (principal); I65.23 Occlusion and stenosis of bilateral carotid arteries; I25.10 Atherosclerotic heart disease of native coronary artery without angina pectoris; I70.213 Atherosclerosis of native arteries of extremities with intermittent claudication, bilateral legs; I48.0 Paroxysmal atrial fibrillation
CPT/HCPCS: 36415; 80053; 83735; 85025

== ENCOUNTER → 2017-07-22 | Outpatient (CLI) | payer MEDICARE, OTHER | LOC: WOUNDCARE 15:59 | PROVIDERS: ATTEND Surgery | DX: L97.222 Non-pressure chronic ulcer of left calf with fat layer exposed (principal); I70.242 Atherosclerosis of native arteries of left leg with ulceration of calf; I87.332 Chronic venous hypertension (idiopathic) with ulcer and inflammation of left lower extremity; S81.812A Laceration without foreign body, left lower leg, initial encounter | CPT/HCPCS: 99212 ==

== ENCOUNTER → 2017-07-29 | Outpatient (CLI) | payer MEDICARE, OTHER | LOC: WOUNDCARE 14:07 | PROVIDERS: ATTEND Surgery | DX: L97.222 Non-pressure chronic ulcer of left calf with fat layer exposed (principal); I70.242 Atherosclerosis of native arteries of left leg with ulceration of calf; I87.332 Chronic venous hypertension (idiopathic) with ulcer and inflammation of left lower extremity; S81.812A Laceration without foreign body, left lower leg, initial encounter | CPT/HCPCS: 11042; 11045; 87070; 87075; 87077; 87186; 87205 ==

== ENCOUNTER → 2017-08-12 | Outpatient (CLI) | payer MEDICARE, OTHER | LOC: WOUNDCARE 08:03 | PROVIDERS: ATTEND Surgery | DX: I70.242 Atherosclerosis of native arteries of left leg with ulceration of calf (principal); I87.332 Chronic venous hypertension (idiopathic) with ulcer and inflammation of left lower extremity; L97.222 Non-pressure chronic ulcer of left calf with fat layer exposed | CPT/HCPCS: 11042; 11045 ==

== ENCOUNTER → 2017-08-21 | Outpatient (CLI) | payer MEDICARE, OTHER | LOC: WOUNDCARE 10:57 | PROVIDERS: ATTEND Surgery | DX: L97.222 Non-pressure chronic ulcer of left calf with fat layer exposed (principal); I87.332 Chronic venous hypertension (idiopathic) with ulcer and inflammation of left lower extremity; I70.242 Atherosclerosis of native arteries of left leg with ulceration of calf | CPT/HCPCS: 11042; 11045; 87070; 87075; 87077; 87186; 87205 ==

== ENCOUNTER → 2017-08-28 | Outpatient (CLI) | payer MEDICARE, OTHER | LOC: WOUNDCARE 13:49 | PROVIDERS: ATTEND Surgery | DX: L97.222 Non-pressure chronic ulcer of left calf with fat layer exposed (principal); I87.332 Chronic venous hypertension (idiopathic) with ulcer and inflammation of left lower extremity; I70.242 Atherosclerosis of native arteries of left leg with ulceration of calf | CPT/HCPCS: 15271 ==

== ENCOUNTER → 2017-09-02 | Outpatient (CLI) | payer MEDICARE, OTHER | LOC: WOUNDCARE 15:46 | PROVIDERS: ATTEND Surgery | DX: I70.242 Atherosclerosis of native arteries of left leg with ulceration of calf (principal); I87.332 Chronic venous hypertension (idiopathic) with ulcer and inflammation of left lower extremity; L97.222 Non-pressure chronic ulcer of left calf with fat layer exposed | CPT/HCPCS: 15271 ==

== ENCOUNTER 2018-07-14 12:51 | Inpatient (IN) | payer MEDICARE, OTHER ==
[2018-07-14] VITALS (9 sets, daily range): BP systolic 145–183; BP diastolic 70–108
[~2018-07-14] VITALS: Ht 165.1 cm; Wt 47.6 kg
[2018-07-14 13:45] LABS: BASOPHILS % (AUTO) 0 % (0-10); EOSINOPHILS % (AUTO) 0 % (0-10); HEMATOCRIT 42 % (35-52); HEMOGLOBIN 13.2 G/DL (11.5-16.0); LYMPHOCYTES # (AUTO) 1.3 X 10^3 (1.0-4.0); LYMPHOCYTES % (AUTO) 28 % (12-44); MEAN CORPUSCULAR HEMOGLOBIN 32 PG (25-34); MEAN CORPUSCULAR HGB CONC 32 G/DL (32-36); MEAN CORPUSCULAR VOLUME 100 FL (80-99); MEAN PLATELET VOLUME 9.6 FL (7.4-10.4); MONOCYTES # (AUTO) 0.4 X 10^3 (0.0-1.0); MONOCYTES % (AUTO) 9 % (0-12); NEUTROPHILS % (AUTO) 63 % (42-75); PLATELET COUNT 245 10^3/uL (130-400); RED BLOOD COUNT 4.15 10^6/uL (4.35-5.85); WHITE BLOOD COUNT 4.8 10^3/uL (4.3-11.0)
[2018-07-14 13:59] LABS: INR 1.1 (0.8-1.4); PROTHROMBIN TIME PATIENT 14.3 SEC (12.2-14.7)
[2018-07-14 14:04] LABS: ALBUMIN 4.3 GM/DL (3.2-4.5); BILIRUBIN,TOTAL 0.6 MG/DL (0.1-1.0); CALCIUM 9.3 MG/DL (8.5-10.1); CREATININE SERUM 0.96 MG/DL (0.60-1.30); POTASSIUM 5.1 MMOL/L (3.6-5.0); TOTAL PROTEIN 7.6 GM/DL (6.4-8.2)
--- NOTE | 2018-07-14 14:15 | ED Trauma-Multisystem ---
General Chief Complaint: Trauma-Non Activation Stated Complaint: NOSE BLEED;FALL Nursing Triage Note: ARRIVED VIA AMB TO TRIAGE ROOM SLOWLY. STATES SHE FELL 2 NIGHTS AGO HITTING HER HEAD. DENIES LOC AND DID NOT SEEK HELP AFTER. THIS MORNING SHE WOKE UP WITH A NOSE BLEED AND DOES NOT FEEL "RIGHT IN THE HEAD". PT IS ON BLOOD THINNERS. Source of Information: Patient Exam Limitations: No Limitations (QUIQUE MELENDREZ) History of Present Illness Date Seen by Provider: Jul 14, 2018 Time Seen by Provider: 13:10 Initial Comments Patient is an 87-year-old female who presents to the emergency room with complaints of head pain and intermittent nosebleed for the past 2 days after a fall. She reports that on Thursday night she was getting into bed and missed the bed causing her to fall and hit her head and face on wall and becoming wedged between the wall and the bed for 20 minutes before she could get herself up. Her son checks on her daily and reports that yesterday morning she was feeling better but this morning she was weaker and acting a little confused. She is on blood thinners. She also is seen at [facility] for wound on her right inner lower leg and has been treated for it for several months but for the past week she has had increased pain and redness around the wound. Denies any fevers. She does not have any active bleeding from her nose at this time and states that it did stop around 8:30 this morning. Occurred: Other (2 days ago) Pain/Injury Location: Face, Head Associated Symptoms (Fall): Confusion, Headache (QUIQUE MELENDREZ) Allergies and Home Medications Allergies Coded Allergies: amoxicillin (Unverified Allergy, Unknown, 07/14/18) Home Medications Acetaminophen 325 Mg Tablet, 650 MG PO Q6H PRN for PAIN-MILD TO MODERATE Prescribed by: DAWNA FOOTE on 07/10/171716 Aspirin 81 Mg Tab.chew, 81 MG PO DAILY Prescribed by: DAWNA OFOTE on 07/10/171716 Clopidogrel Bisulfate 75 Mg Tablet, 75 MG PO DAILY Prescribed by: DAWNA FOOTE on 07/10/171716 Lisinopril 5 Mg Tablet, 5 MG PO DAILY, (Reported) Metoprolol Succinate 25 Mg Tab.er.24h, 25 MG PO DAILY Prescribed by: DAWNA FOOTE on 07/10/171716 Patient Home Medication List Home Medication List Reviewed: Yes (QUIQUE MELENDREZ) Review of Systems Review of Systems Constitutional: see HPI; No chills, No fever Nose: See HPI, Epistaxis Skin: see HPI, other (ulcerative wound with surrounding erythema to her right inner lower leg.) Psychiatric/Neurological: See HPI, Headache, Other (confusion) (QUIQUE MELENDREZ) All Other Systems Reviewed Negative Unless Noted: Yes (QUIQUE MELENDREZ) Past Kypqysf-Npndrs-Sidgiq Hx Past Med/Social Hx: Reviewed Nursing Past Med/Soc Hx (QUIQUE MELENDREZ) Patient Social History Alcohol Use: Denies Use Recreational Drug Use: No 2nd Hand Smoke Exposure: No Recent Foreign Travel: No Contact w/Someone Who Travel: No Recent Infectious Disease Expo: No Recent Hopitalizations: No Physical Abuse: No Sexual Abuse: No (QUIQUE MELENDREZ) Immunizations Up To Date Tetanus Booster (TDap): Unknown (QUIQUE MELENDREZ) Seasonal Allergies Seasonal Allergies: No (QUIQUE MELENDREZ) Past Medical History Surgeries: Yes 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 Respiratory: No Cardiac: Yes (RI IN 84) Heart Attack 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 9.0oz. 45.592589fr; 17.7 BMI Method:Stated General Appearance: No Apparent Distress, WD/WN Head: No Evidence of Injury Ears, Nose, Throat: Hearing Grossly Normal, No Dental Injury, Other (dried blood to bilateral naris. Evidence of active bleeding.) Neck: Full Range of Motion, Normal Inspection, Non Tender, Supple Cardiovascular: Regular Rate, Rhythm, No Edema, No Gallop, No JVD, No Murmur, Normal Peripheral Pulses Respiratory: Chest Non Tender, Lungs Clear, Normal Breath Sounds, No Accessory Muscle Use, No Respiratory Distress Gastrointestinal: Normal Bowel Sounds, No Organomegaly, No Pulsatile Mass, Non Tender, Soft Extremity: Normal Capillary Refill Neurologic/Psychiatric: Alert, Oriented x3, Normal Mood/Affect Skin: Normal Color, Warm/Dry, Other (ulcerated wound with surrounding erythema to right inner lower leg.) (QUIQUE MELENDREZ) General Appearance: Thin Eyes: Bilateral Eye PERRL, Bilateral Eye EOMI Cardiovascular: Regular Rate, Rhythm, No Murmur Back: Normal Inspection, No CVA Tenderness, No Vertebral Tenderness Extremity: Normal Range of Motion, Non Tender (DEMETRIA DELGADO MD) Vernon Coma Score Best Eye Response (Kyler): (4) Open Spontaneously Best Verbal Response (Kyler): (5) Oriented Best Motor Response (Vernon): (6) Obeys Commands Vernon Total: 15 (QUIQUE MELENDREZ) Focused Exam Lactate Level 07/14/18 13:25: Lactic Acid Level 10.08*H 07/14/18 14:15: Lactic Acid Level 12.34*H 07/14/18 15:25: Lactic Acid Level 11.30*H (DEMETRIA DELGADO MD) Lactic Acid Level Laboratory Tests Test 07/14/18 13:25 07/14/18 14:15 07/14/18 15:25 Lactic Acid Level 10.08 MMOL/L (0.50-2.00) *H 12.34 MMOL/L (0.50-2.00) *H 11.30 MMOL/L (0.50-2.00) *H (DEMETRIA DELGADO MD) Progress/Results/Core Measures Results/Orders Lab Results Laboratory Tests Test 07/14/18 13:25 07/14/18 14:15 07/14/18 14:40 07/14/18 15:10 Range/Units White Blood Count 4.8 4.3-11.0 10^3/uL Red Blood Count 4.15 L 4.35-5.85 10^6/uL Hemoglobin 13.2 11.5-16.0 G/DL Hematocrit 42 35-52 % Mean Corpuscular Volume 100 H 80-99 FL Mean Corpuscular Hemoglobin 32 25-34 PG Mean Corpuscular Hemoglobin Concent 32 32-36 G/DL Red Cell Distribution Width 14.0 10.0-14.5 % Platelet Count 245 130-400 10^3/uL Mean Platelet Volume 9.6 7.4-10.4 FL Neutrophils (%) (Auto) 63 42-75 % Lymphocytes (%) (Auto) 28 12-44 % Monocytes (%) (Auto) 9 0-12 % Eosinophils (%) (Auto) 0 0-10 % Basophils (%) (Auto) 0 0-10 % Neutrophils # (Auto) 3.0 1.8-7.8 X 10^3 Lymphocytes # (Auto) 1.3 1.0-4.0 X 10^3 Monocytes # (Auto) 0.4 0.0-1.0 X 10^3 Eosinophils # (Auto) 0.0 0.0-0.3 10^3/uL Basophils # (Auto) 0.0 0.0-0.1 10^3/uL Prothrombin Time 14.3 12.2-14.7 SEC INR Comment 1.1 0.8-1.4 Activated Partial Thromboplast Time 32 24-35 SEC Sodium Level 138 135-145 MMOL/L Potassium Level 5.1 H 3.6-5.0 MMOL/L Chloride Level 103 98-107 MMOL/L Carbon Dioxide Level 25 21-32 MMOL/L Anion Gap 10 5-14 MMOL/L Blood Urea Nitrogen 27 H 7-18 MG/DL Creatinine 0.96 0.60-1.30 MG/DL Estimat Glomerular Filtration Rate 55 BUN/Creatinine Ratio 28 Glucose Level 92 70-105 MG/DL Lactic Acid Level 10.08 *H 12.34 *H 0.50-2.00 MMOL/L Calcium Level 9.3 8.5-10.1 MG/DL Corrected Calcium 9.1 8.5-10.1 MG/DL Total Bilirubin 0.6 0.1-1.0 MG/DL Aspartate Amino Transf (AST/SGOT) 36 H 5-34 U/L Alanine Aminotransferase (ALT/SGPT) 40 0-55 U/L Alkaline Phosphatase 112 40-136 U/L Troponin I < 0.30 <0.30 NG/ML Total Protein 7.6 6.4-8.2 GM/DL Albumin 4.3 3.2-4.5 GM/DL Amylase Level 59 25-125 U/L Lipase 29 8-78 U/L TSH [place] Testing 4.34 0.35-4.94 UIU/ML Urine Color YELLOW Urine Clarity CLEAR Urine pH 6 5-9 Urine Specific [place] 1.010 L 1.016-1.022 Urine Protein NEGATIVE NEGATIVE Urine Glucose (UA) NEGATIVE NEGATIVE Urine Ketones NEGATIVE NEGATIVE Urine Nitrite NEGATIVE NEGATIVE Urine Bilirubin NEGATIVE NEGATIVE Urine Urobilinogen NORMAL NORMAL MG/DL Urine Leukocyte Esterase 1+ H NEGATIVE Urine RBC (Auto) 1+ H NEGATIVE Urine RBC 0-2 /HPF Urine WBC NONE /HPF Urine Squamous Epithelial Cells RARE /HPF Urine Renal Epithelial Cells NONE /HPF Urine Crystals NONE /LPF Urine Bacteria NEGATIVE /HPF Urine Casts NONE /LPF Urine Mucus NEGATIVE /LPF Urine Culture Indicated NO Blood Gas Puncture Site RT RAD Blood Gas Patient Temperature 97.2 Arterial Blood pH 7.40 7.37-7.43 Arterial Blood Partial Pressure CO2 38 35-45 MMHG Arterial Blood Partial Pressure O2 80 79-93 MMHG Arterial Blood HCO3 23 23-27 MMOL/L Arterial Blood Total CO2 24.3 21.0-31.0 MMOL/L Arterial Blood Oxygen Saturation 97 94-100 % Arterial Blood Base Excess -1.2 -2.5-2.5 MMOL/L Jose Alfredo Test YES-POS Blood Gas Ventilator Setting NO Blood Gas Inspired Oxygen ROOM AIR Test 07/14/18 15:25 Range/Units Lactic Acid Level 11.30 *H 0.50-2.00 MMOL/L (DEMETRIA DELGADO MD) My Orders Orders - DEMETRIA DELGADO MD Ns Iv 1000 Ml (Sodium Chloride 0.9%) (07/14/18 14:37) Tibia/Fibula, Right, 2 Views (07/14/18 14:37) Arterial Blood Gas (07/14/18 15:14) Amylase (07/14/18 15:33) Lipase (07/14/18 15:33) Catheter(Urinary) Insert & Ass 03,15 (07/14/18 16:11) (DEMETRIA DELGADO MD) Medications Given in ED Current Medications Medications Dose Ordered Sig/Isaac Route Start Time Stop Time Status Last Admin Dose Admin Iohexol 100 ml ONCE ONCE IV 07/14/18 15:45 07/14/18 15:46 DC 07/14/18 15:50 100 ML Sodium Chloride 100 ml ONCE ONCE IV 07/14/18 15:45 07/14/18 15:46 DC 07/14/18 15:50 100 ML (DEMETRIA DELGADO MD) Vital Signs/I&O 07/14/18 12:55 Temp 98.1 Pulse 74 Resp 16 B/P (MAP) 183/73 (109) Pulse Ox 96 O2 Delivery Room Air (DEMETRIA DELGADO MD) Blood Pressure Mean: 109 Progress Progress Note : Progress Note 1540: Dr. Hardy here to see the patient. (QUIQUE MELENDREZ) Progress Note : Progress Note 1500: I assumed care of the patient from Quique Melendrez APRN, due to markedly elevated lactic acid. Patient presented today after fall 2 days ago in which she fell beside her bed. She did hit her face and head. She is on blood thinners. Had CT head and neck were done and are negative. She does have wound to the right lower extremity that is currently under the care of wound care and is not apparently worse. No fevers currently. Lactic acid is elevated and it is from an unknown source. Although the patient does have mild cellulitis or wound it appears to be in the healing stage and I do not suspect that is the source of the problem. We have initiated evaluation for cardiac cause and have added troponin and EKG. We will also initiate normal saline 2 L bolus which will see the 30 mL/kg. We do not have suspicion or source for infection at this point other than the chronic leg wound which I do not believe is causing the issue. We will continue evaluation for sources of lactic acid elevation. White count is not elevated and creatinine is not either. 1515: I did discuss the case with Dr. Hardy and she will accept patient for admission to the hospital pending labs. 140: Dr. Hardy here evaluating. Troponin and EKG are negative for acute infarct. I have discussed the case with Dr. Robles. We will add amylase and lipase as well as get CT abdomen and pelvis to evaluate further. 1615: Fluids continuing. Large bladder noted on CT. Angela catheter to be placed due to the need for evaluation of eyes and nose as well as due to patient's weakness. CT results pending. 1635: CT abdomen pelvis does not show any acute significant findings. Does have some small aortic aneurysms that are not concerning at this point. Angela catheter was placed to relieve bladder. We will keep this in place due to the weakness and the need for accurate fluids fine status monitoring. Patient to go to ICU. Admit, inpatient status. Patient and family agree with plan. (DEMETRIA DELGADO MD) Initial ECG Impression Date: Jul 14, 2018 Initial ECG Impression Time: 15:06 Initial ECG Rate: 69 Initial ECG Rhythm: Normal Sinus Comment Sinus rhythm with left atrial abnormality and intraventricular conduction delay. Consideration of right bundle branch block. Left ventricular hypertrophy noted. Similar to previous of 24 May 2010. No evidence of ST elevation RI. Interpreted by me. (DEMETRIA DELGADO MD) Diagnostic Imaging Diagonstic Imaging: CT Plain Films/CT/US/NM/MRI: abdomen, pelvis, leg Comments NAME: [facility] REC#: [id number] PHYSICIAN: QUIQUE MELENDREZ CC: QUIQUE MELENDREZ; PANFILO ARAUJO MD Page 2 of 2 RADIOLOGY REPORT [facility], [place] CC: QUIQUE MELENDREZ; PANFILO ARAUJO MD Page 1 of 1 RADIOLOGY REPORT NAME: [facility] REC#: [id number] PT STATUS: ADM IN : 1930 PHYSICIAN: QUIQUE MELENDREZ ADMIT DATE: 07/14/18/ICU Signed Date of Exam: 07/14/18 CT ABDOMEN/PELVIS W PROCEDURE: CT abdomen and pelvis with contrast. TECHNIQUE: Multiple contiguous axial images were obtained through the abdomen and pelvis after administration of intravenous contrast. INDICATION: Nosebleed this morning. Generalized pain and weakness after fall 2 days ago. COMPARISON: None FINDINGS: There is pectus excavatum with scarring at the lung bases. The heart is large in size, with particularly the left ventricle and right atrium. No pericardial effusion is seen. The aorta demonstrates calcific atherosclerosis and is tortuous. There is a small infrarenal abdominal aortic aneurysm measuring 2.1 x 2.1 cm on axial imaging, and 1.7 cm craniocaudal. There is an additional infrarenal abdominal aortic aneurysm just proximal to the bifurcation, which measures 2.4 x 2.4 cm on axial imaging, and 2.2 cm craniocaudal. No dissection is seen. 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 The stent appears to be patent. No focal hepatic lesions are seen. The spleen appears normal, with heterogeneous arterial perfusion. The pancreas is mildly atrophic but appears normal. The right adrenal gland is unremarkable. The left adrenal gland is not well seen. The kidneys are externally rotated, but no significant hydronephrosis is seen. The bowel loops are nondistended without evidence of obstruction. There is moderate stool throughout the colon. No free fluid or free air is seen. There is moderate distention of the urinary bladder. Degenerative changes are seen in the lumbar spine with no acute osseous abnormality seen. No arterial extravasation of contrast is seen. There is mild subcutaneous anasarca. IMPRESSION: 1. Multiple small abdominal aortic aneurysms, with no extravasation of contrast seen. 2. Moderate stool throughout the colon, please correlate with history of constipation. 3. Moderate distention of the urinary bladder. 4. Mild subcutaneous anasarca. 5. Pectus excavatum with cardiomegaly, with particular enlargement of the left ventricle and right atrium. Dictated by: Dictated on workstation # [id number] Dict: 07/14/18 1614 Trans: 07/14/18 174 Interpreted by: PANFILO ARAUJO MD Electronically signed by: PANFILO ARAUJO MD 07/14/181740 NAME: [facility] REC#: [id number] PHYSICIAN: DEMETRIA DELGADO MD CC: PANFILO ARAUJO MD; DEMETRIA DELGADO MD Page 1 of 1 RADIOLOGY REPORT [facility] [place] CC: PANFILO ARAUJO MD; DEMETRIA DELGADO MD Page 1 of 1 RADIOLOGY REPORT NAME: [facility] REC#: [id number] PT STATUS: REG ER : 1930 PHYSICIAN: DEMETRIA DELGADO MD ADMIT DATE: 07/14/18/ER Signed Date of Exam: 07/14/18 TIBIA/FIBULA, RIGHT, 2 VIEWS PATIENT HISTORY: Fall, leg injury. TECHNIQUE: Two views of the right tibia/fibula. COMPARISON: None. FINDINGS: There is diffuse osteopenia. Chondrocalcinosis is present in the knee. No acute fracture is seen. Alignment appears normal. There are mild degenerative changes in the right knee and ankle. There is mild soft tissue edema in the distal right lower leg. IMPRESSION: No acute osseous abnormality seen in the right tibia/fibula. There is mild soft tissue edema in the distal right lower leg. Dictated by: Dictated on workstation # [id number] Dict: 07/14/18 1517 Trans: 07/14/18 1603 Interpreted by: PANFILO ARAUJO MD Electronically signed by: PANFILO ARAUJO MD 07/14/18 1603 [facility] [place] NAME: [facility] REC#: [id number] PT STATUS: REG ER : 1930 PHYSICIAN: QUIQUE MELENDREZ ADMIT DATE: 07/14/18/ER Draft Date of Exam:07/14/18 CT HEAD/FACE/CERVICAL WO PROCEDURE: CT head, face, and cervical spine without contrast. TECHNIQUE: Multiple contiguous axial images were obtained through the head, neck, and facial bones without the use of intravenous contrast. Sagittal and coronal reformations through the cervical spine and facial bones were also performed. INDICATION: Fell head, face and neck pain CT head There is no mass, shift of midline or hemorrhage to suggest an acute intracranial abnormality. The ventricles are not abnormally dilated and stable in size when compared to the prior exam of 05/24/10. The cortical atrophy and the periventricular encephalomalacia seen on the prior study are again evident and no different. The bone windows show no sign of a fracture or of a destructive lesion. As noted on the prior exam there is right maxillary sinusitis. The sinuses otherwise are generally clear. The orbits are symmetrical and within normal limits. IMPRESSION: 1. There is no evidence for an acute intracranial abnormality. When compared to the prior study there has been no significant change. 2. If clinical concern regarding an underlying abnormality persists, then MRI would be recommended for further study. CT facial bones The orbital rims, nasal bone, zygomatic arches and mandible are intact. 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 The sinuses otherwise are generally clear. The orbits are symmetrical and within normal limits. IMPRESSION: 1. There is no evidence for an acute bony abnormality. CT cervical spine There are no prior studies available for comparison. The reconstructed sagittal images show the vertebral body heights and alignment to be within normal limits. The intervertebral spaces are fairly well-maintained given the patient's advanced age. There is no evidence for a high-grade central stenosis. There is no fracture or acute bony abnormality noted. There is no sign of retropharyngeal edema. There does appear to be a small 7 MM low density nodule in the right lobe of the thyroid. Ultrasound would be recommended for further study. The lung apices are clear. IMPRESSION: 1. There is no evidence for an acute bony abnormality. 2. Ultrasound would be recommended for further evaluation of the subcentimeter nodule in the right lobe. 3. These results will be discussed with Dr. Delgado in the ER. Dictated on workstation # [id number] Dict: 07/14/18 1404 Trans: 07/14/18 1423 SHERRY [id number] Interpreted by: SHELL PRADO MD Electronically signed by: Reviewed: Reviewed by Md (QUIUQE MELENDREZ) Diagonstic Imaging: Xray Plain Films/CT/US/NM/MRI: chest Comments NAME: [facility] REC#: [id number] PT STATUS: REG ER : 1930 PHYSICIAN: QUIQUE MELENDREZ ADMIT DATE: 07/14/18/ER Signed Date of Exam: 07/14/18 CHEST 1 VIEW, AP/PA ONLY PATIENT HISTORY: Fall. TECHNIQUE: Single frontal view of the chest. COMPARISON: 05/06/2015. FINDINGS: Lung volumes are large. No focal consolidation is seen. There is no pleural effusion or pneumothorax. There is moderate cardiomegaly which appears stable. There is aortic atherosclerosis. Diffuse osteopenia is present. No displaced fractures are seen. Aeration appears improved compared to 2014. IMPRESSION: Large lung volumes and stable cardiomegaly with no acute pulmonary abnormality seen. Dictated by: Dictated on workstation # [id number] Dict: 07/14/18 1432 Trans: 07/14/18 1602 Interpreted by: PANFILO ARAUJO MD Electronically signed by: PANFILO ARAUJO MD 07/14/18 1602 Diagonstic Imaging: Xray Plain Films/CT/US/NM/MRI: leg Comments NAME: [facility] REC#: [id number] PT STATUS: REG ER : 1930 PHYSICIAN: DEMETRIA DELGADO MD ADMIT DATE: 07/14/18/ER Signed Date of Exam: 07/14/18 TIBIA/FIBULA, RIGHT, 2 VIEWS PATIENT HISTORY: Fall, leg injury. TECHNIQUE: Two views of the right tibia/fibula. COMPARISON: None. FINDINGS: There is diffuse osteopenia. Chondrocalcinosis is present in the knee. No acute fracture is seen. Alignment appears normal. There are mild degenerative changes in the right knee and ankle. There is mild soft tissue edema in the distal right lower leg. IMPRESSION: No acute osseous abnormality seen in the right tibia/fibula. There is mild soft tissue edema in the distal right lower leg. Dictated by: Dictated on workstation # [id number] Dict: 07/14/18 1517 Trans: 07/14/18 1603 Interpreted by: PANFILO ARAUJO MD Electronically signed by: PANFILO ARAUJO MD 07/14/18 1603 Diagonstic Imaging: CT Plain Films/CT/US/NM/MRI: c-spine, head Comments [facility] [place] NAME: [facility] REC#: [id number] PT STATUS: REG ER : 1930 PHYSICIAN: QUIQUE MELENDREZ ADMIT DATE: 07/14/18/ER Draft Date of Exam:07/14/18 CT HEAD/FACE/CERVICAL WO PROCEDURE: CT head, face, and cervical spine without contrast. TECHNIQUE: Multiple contiguous axial images were obtained through the head, neck, and facial bones without the use of intravenous contrast. Sagittal and coronal reformations through the cervical spine and facial bones were also performed. INDICATION: Fell head, face and neck pain CT head There is no mass, shift of midline or hemorrhage to suggest an acute intracranial abnormality. The ventricles are not abnormally dilated and stable in size when compared to the prior exam of 05/24/10. The cortical atrophy and the periventricular encephalomalacia seen on the prior study are again evident and no different. The bone windows show no sign of a fracture or of a destructive lesion. As noted on the prior exam there is right maxillary sinusitis. The sinuses otherwise are generally clear. The orbits are symmetrical and within normal limits. IMPRESSION: 1. There is no evidence for an acute intracranial abnormality. When compared to the prior study there has been no significant change. 2. If clinical concern regarding an underlying abnormality persists, then MRI would be recommended for further study. CT facial bones The orbital rims, nasal bone, zygomatic arches and mandible are intact. 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 The sinuses otherwise are generally clear. The orbits are symmetrical and within normal limits. IMPRESSION: 1. There is no evidence for an acute bony abnormality. CT cervical spine There are no prior studies available for comparison. The reconstructed sagittal images show the vertebral body heights and alignment to be within normal limits. The intervertebral spaces are fairly well-maintained given the patient's advanced age. There is no evidence for a high-grade central stenosis. There is no fracture or acute bony abnormality noted. There is no sign of retropharyngeal edema. There does appear to be a small 7 MM low density nodule in the right lobe of the thyroid. Ultrasound would be recommended for further study. The lung apices are clear. IMPRESSION: 1. There is no evidence for an acute bony abnormality. 2. Ultrasound would be recommended for further evaluation of the subcentimeter nodule in the right lobe. 3. These results will be discussed with Dr. Delgado in the ER. Dictated on workstation # [id number] Dict: 07/14/18 1404 Trans: 07/14/18 1423 [facility] [id number] Interpreted by: SHELL PRADO MD Electronically signed by: [place] Imaging: CT Plain Films/CT/US/NM/MRI: abdomen, pelvis Comments [facility] [place] [place] NAME: [facility] REC#: [id number] PT STATUS: REG ER : 1930 PHYSICIAN: QUIQUE MELENDREZ ADMIT DATE: 07/14/18/ER Draft Date of Exam:07/14/18 CT ABDOMEN/PELVIS W PROCEDURE: CT abdomen and pelvis with contrast. TECHNIQUE: Multiple contiguous axial images were obtained through the abdomen and pelvis after administration of intravenous contrast. INDICATION: Nosebleed this morning. Generalized pain and weakness after fall 2 days ago. COMPARISON: None FINDINGS: There is pectus excavatum with scarring at the lung bases. The heart is large in size, with particularly the left ventricle and right atrium. No pericardial effusion is seen. The aorta demonstrates calcific atherosclerosis and is tortuous. There is a small infrarenal abdominal aortic aneurysm measuring 2.1 x 2.1 cm on axial imaging, and 1.7 cm craniocaudal. There is an additional infrarenal abdominal aortic aneurysm just proximal to the bifurcation, which measures 2.4 x 2.4 cm on axial imaging, and 2.2 cm craniocaudal. No dissection is seen. 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 The stent appears to be patent. No focal hepatic lesions are seen. The spleen appears normal, with heterogeneous arterial perfusion. The pancreas is mildly atrophic but appears normal. The right adrenal gland is unremarkable. The left adrenal gland is not well seen. The kidneys are externally rotated, but no significant hydronephrosis is seen. The bowel loops are nondistended without evidence of obstruction. There is moderate stool throughout the colon. No free fluid or free air is seen. There is moderate distention of the urinary bladder. Degenerative changes are seen in the lumbar spine with no acute osseous abnormality seen. No arterial extravasation of contrast is seen. There is mild subcutaneous anasarca. IMPRESSION: 1. Multiple small abdominal aortic aneurysms, with no extravasation of contrast seen. 2. Moderate stool throughout the colon, please correlate with history of constipation. 3. Moderate distention of the urinary bladder. 4. Mild subcutaneous anasarca. 5. Pectus excavatum with cardiomegaly, with particular enlargement of the left ventricle and right atrium. Dictated on workstation # [id number] Dict: 07/14/18 1614 Trans: 07/14/18 1631 CAROL [id number] Interpreted by: PANFILO ARAUJO MD Electronically signed by: Reviewed: Reviewed by Me (DEMETRIA DELGADO MD) Departure Communication (Admissions) Time/Spoke to Admitting Phy: 15:15 Time/Spoke to Consulting Phy: 15:35 (DEMETRIA DELGADO MD) Impression Primary Impression: Lactic acidosis Additional Impression: Weakness Disposition: 09 ADMITTED INPATIENT Condition: Stable Admissions Decision to Admit Reason: Admit from ER (General) Decision to Admit/Date: Jul 14, 2018 Time/Decision to Admit Time: 15:15 (DEMETRIA DELGADO MD) Departure-Patient Inst. Referrals: NO,LOCAL PHYSICIAN (PCP/Family) Primary Care Physician QUIQUE MELENDREZ Jul 14, 2018 14:15 DEMETRIA DELGADO MD Jul 14, 2018 16:19
--- NOTE | 2018-07-14 14:23 | Diagnostic Imaging Report ---
PROCEDURE: CT head, face, and cervical spine without contrast. TECHNIQUE: Multiple contiguous axial images were obtained through the head, neck, and facial bones without the use of intravenous contrast. Sagittal and coronal reformations through the cervical spine and facial bones were also performed. INDICATION: Fell head, face and neck pain CT head There is no mass, shift of midline or hemorrhage to suggest an acute intracranial abnormality. The ventricles are not abnormally dilated and stable in size when compared to the prior exam of 05/24/10. The cortical atrophy and the periventricular encephalomalacia seen on the prior study are again evident and no different. The bone windows show no sign of a fracture or of a destructive lesion. As noted on the prior exam there is right maxillary sinusitis. The sinuses otherwise are generally clear. The orbits are symmetrical and within normal limits. IMPRESSION: 1. There is no evidence for an acute intracranial abnormality. When compared to the prior study there has been no significant change. 2. If clinical concern regarding an underlying abnormality persists, then MRI would be recommended for further study. CT facial bones The orbital rims, nasal bone, zygomatic arches and mandible are intact. 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 The sinuses otherwise are generally clear. The orbits are symmetrical and within normal limits. IMPRESSION: 1. There is no evidence for an acute bony abnormality. CT cervical spine There are no prior studies available for comparison. The reconstructed sagittal images show the vertebral body heights and alignment to be within normal limits. The intervertebral spaces are fairly well-maintained given the patient's advanced age. There is no evidence for a high-grade central stenosis. There is no fracture or acute bony abnormality noted. There is no sign of retropharyngeal edema. There does appear to be a small 7 MM low density nodule in the right lobe of the thyroid. Ultrasound would be recommended for further study. The lung apices are clear. IMPRESSION: 1. There is no evidence for an acute bony abnormality. 2. Ultrasound would be recommended for further evaluation of the subcentimeter nodule in the right lobe. 3. These results will be discussed with Dr. Monteiro in the ER. Dictated by: Dictated on workstation # [id number]
--- OUTSIDE RECORDS SUMMARY | 2018-07-14 14:25 | XMS REPORT | Continuity of Care Document ---
Author Author [facility] Organization [facility] Address [facility] [address] [place] [address] Phone Unavailable Support Name Relationship Address Phone MELANIE BUTLER MD Caregiver [address] [place] [address] Caren Pelayo M.D. Caregiver [address] [place] [address] GILLIAN HOGAN Next Of Kin [address] [place], [place] [address] Insurance Providers Guarantor Geo Hogan Address [address] [place] [address] Payer Medicare Policy Number [id number] Subscriber's Name Geo Hogan Adrianna Relationship 18 Self / Same As Patient Payer OTHER Policy Number [id number] Subscriber's Name Curt Hoganbogdan Rodas Relationship 18 Self / Same As Patient Group Number PLAN J Advance Directives Directive Response Recorded Date/Time Do you have an Advanced Directive? No 12/10/04 11:09am Advance Directives No 04/20/18 2:27pm Living Will No 04/20/18 2:27pm Health Care Proxy No 04/20/18 2:27pm Power of Cereal Chemist for Health Care No 04/20/18 2:27pm Organ, Tissue, or Eye Donor No 04/20/18 2:27pm Do you have a signed organ donor card? No 12/10/04 11:09am Problems No problem information available. Medications Current Home Medications Medication Dose Units Route Directions Days Qty Instructions Start Date Aspirin (Ecotrin 81 Mg Enteric Coated*) 81 Mg Tablet. 81 Mg ORAL Daily 30 Tablet Clopidogrel Bisulfate (Plavix 75 Mg*) 75 Mg Tablet 75 Mg ORAL Daily 30 Tablet Lisinopril (Prinivil 5 Mg Tab*) 5 Mg Tablet 5 Mg ORAL Daily 30 Tablet Metoprolol Succinate (Toprol Xl 25 Mg Tab*) 25 Mg Tab.sr.24h 25 Mg ORAL Daily 30 Tablet Sulfamethoxazole/Trimethoprim (Bactrim Ds Tablet) 1 Each Tablet 1 Tab Twice A Day Social History Social History Problem Response Recorded Date/Time Onset Date Status Smoking Status Never smoker 04/20/2018 2:27pm Not Applicable Not Applicable Smoking Status Start Date Stop Date Never smoker Hospital Discharge Instructions No hospital discharge instruction information available. Plan of Care Instructions/Education Provided 1 Day Surgery Signs/Prevention of Infection Prescriptions See Medication Section Functional Status No functional status information available. Allergies, Adverse Reactions, Alerts Allergen Type Severity Reaction Status Last Updated Penicillin Allergy Unknown Active 04/20/18 Immunizations Query Response on File Recorded Date/Time Hx Influenza Vaccination No 04/20/18 2:27pm Hx Pneumococcal Vaccination No 04/20/18 2:27pm Vital Signs Acute Vital Signs Vital Response Date/Time Temperature (Fahrenheit) 98.1 degrees F (97.6 - 99.5) 04/23/2018 4:53pm Temperature Source Temporal Artery 04/23/2018 4:53pm Pulse Rate (adult) 54 bpm (60 - 90) 04/23/2018 4:53pm Respiratory Rate 12 bpm (12 - 24) 04/23/2018 4:53pm Blood Pressure 117/49 mm Hg 04/23/2018 4:53pm Blood Pressure 126/58 mm Hg 04/23/2018 4:53pm O2 Sat by Pulse Oximetry 97 % (90 - 100) 04/23/2018 4:53pm Height 5 ft 6 in 04/20/2018 2:27pm Weight 102.01 lb 04/20/2018 2:27pm Body Mass Index 16.0 kg/m^2 04/20/2018 2:27pm Results Microbiology Results Procedure Source Organism/Result Collection Date/Time Result Date/Time Result Status Wound Culture Leg, Right STAPHYLOCOCCUS EPIDERMIDIS 04/23/2018 3:59pm 04/27 2:18pm Final Procedures Procedure Status Date Provider(s) RY SUBQ TISSUE 20 SQ CM/< Completed 02/01/18 RY SUBQ TISSUE 20 SQ CM/< Completed 02/01/18 RY SUBQ TISSUE 20 SQ CM/< Completed 03/05/18 RY SUBQ TISSUE 20 SQ CM/< Completed 03/05/18 RY SUBQ TISSUE 20 SQ CM/< Completed 03/05/18 RY SUBQ TISSUE 20 SQ CM/< Completed 04/23/18 MELANIE BUTLER MD CULTURE OTHR SPECIMN AEROBIC Completed 04/23/18 CULTR BACTERIA EXCEPT BLOOD Completed 04/23/18 CULTURE AEROBIC IDENTIFY Completed 04/23/18 MICROBE SUSCEPTIBLE TAMIA Completed 04/23/18 LIDOCAINE INJECTION Completed 04/23/18 INJ, PROPOFOL, 10 MG Completed 04/23/18 RINGERS LACTATE INFUSION Completed 04/23/18 Encounters Encounter Location Arrival/Admit Date Discharge/Depart Date Attending Provider [facility]istered [facility] [place] 04/23/18 7:00am MELANIE BUTLER MD Discharged [facility] [place] 04/06/18 10:00am 05/02/18 10:43am ZACKARY PIERSON D.O. Discharged [facility] [place] 03/05/18 9:39am 04/02/18 11:43am ZACKARY PIERSON D.O. Discharged [facility]ring [place] 02/01/18 9:10am 03/02/18 3:26pm ZACKARY PIERSON D.O.
--- OUTSIDE RECORDS SUMMARY | 2018-07-14 14:25 | XMS REPORT | Continuity of Care Document ---
Author Author [facility] Organization [facility] Address [facility] [address] [place] [address] Phone Unavailable Support Name Relationship Address Phone KELLY FOX MD Caregiver [address] [place] [address] Caren Pelayo M.D. Caregiver [address] [place] [address] GILLIAN HOGAN Next Of Kin [address] [place], [place] [address] Insurance Providers Guarantor Geo Hogan Address [address] [place] [address] Payer Medicare Policy Number [id number] Subscriber's Name eGo Hogan Relationship 18 Self / Same As Patient Effective Date 97 Payer OTHER Policy Number [id number] Subscriber's Name Geo Hogan Relationship 18 Self / Same As Patient Group Number PLAN [id number] Advance Directives Directive Response Recorded Date/Time Do you have an Advanced Directive? No 12/10/04 11:09am Advance Directives No 04/20/18 2:27pm Living Will No 04/20/18 2:27pm Health Care Proxy No 05/27/18 11:50am Power of [employer] Contact Printer for Health Care No 04/20/18 2:27pm Organ, [...] Stop Date Never smoker Hospital Discharge Instructions Current inpatient/outpatient. Discharge instructions are currently unavailable. Plan of Care Current inpatient/outpatient. The plan of care is currently unavailable. Functional Status No functional status information available. [...] 97 % (90 - 100) 04/23/2018 4:53pm Results Microbiology Results Procedure Source Organism/Result Collection Date/Time Result Date/Time Result Status Wound Culture Leg, Right No growth in 3 days 05/27/2018 11:35am 05/30/2018 3:09pm Final Procedures Procedure Status Date Provider(s) RY SUBQ TISSUE 20 SQ CM/< Completed 03/05/18 RY SUBQ TISSUE 20 SQ CM/< Completed 03/05/18 RY SUBQ TISSUE 20 SQ CM/< Completed 03/05/18 RY SUBQ TISSUE 20 SQ CM/< Completed 04/06/18 RY SUBQ TISSUE 20 SQ CM/< Completed 04/06/18 RY SUBQ TISSUE 20 SQ CM/< Completed 04/06/18 RY SUBQ TISSUE ADD-ON Completed 04/06/18 RY SUBQ TISSUE ADD-ON Completed 04/06/18 CULTURE OTHR SPECIMN AEROBIC Completed 04/06/18 CULTURE AEROBIC IDENTIFY Completed 04/06/18 MICROBE SUSCEPTIBLE TAMIA Completed 04/06/18 RY SUBQ TISSUE 20 SQ CM/< Completed 04/23/18 MELANIE BUTLER MD CULTURE OTHR SPECIMN AEROBIC Completed 04/23/18 CULTR BACTERIA EXCEPT BLOOD Completed 04/23/18 CULTURE AEROBIC IDENTIFY Completed 04/23/18 MICROBE SUSCEPTIBLE TAMIA Completed 04/23/18 LIDOCAINE INJECTION Completed 04/23/18 INJ, PROPOFOL, 10 MG Completed 04/23/18 RINGERS LACTATE INFUSION Completed 04/23/18 X-RAY EXAM OF LOWER LEG Completed 05/27/18 Ultrasound of arteries of both lower extremities Active 06/01/18 KELLY FOX MD X-ray of right lower leg Completed 05/27/18 KELLY FOX MD Encounters Encounter Location Arrival/Admit Date Discharge/Depart Date Attending Provider Discharged [facility] [place] 06/01/18 1:00pm 06/02/18 11:05am ZACKARY PIERSON D.O. Registered [facility] [place] 05/27/18 11:54am KELLY FOX MD [facility]istered [facility] [place] 04/23/18 7:00am MELANIE BUTLER MD Discharged [facility] [place] 04/06/18 10:00am 05/02/18 10:43am ZACKARY PIERSON D.O. Discharged [facility] [place] 03/05/18 9:39am 04/02/18 11:43am ZACKARY PIERSON D.O.
--- OUTSIDE RECORDS SUMMARY | 2018-07-14 14:26 | XMS REPORT | Continuity of Care Document ---
Author Author [facility] Organization [facility] Address Unknown Phone Unavailable Allergies Active Description Code Type Severity Reaction Onset Reported/Identified Relationship to Patient Clinical Status Yes AMOXICILLIN [id number] Drug Allergy N/A N/A Yes No Known Drug Allergies [id number] Drug Allergy Unknown N/A 05/17/2010 Medications Medication Packaging Start Date Stop Date Route Dosage Sig PLAVIX ORAL 10/13/2017 ORAL 3030 daily METOPROLOL TARTRATE ORAL 2017 ORAL 6060 daily ASPIRIN EC ORAL 10/13/2017 ORAL 3030 daily FOSAMAX ORAL 10/28/2017 ORAL 44 every week Problems Date Dx Coded Attending Type Code Diagnosis Diagnosed By 05/17/2010 Ot 724.2 05/17/2010 Ot 729.5 05/24/2010 Ot 473.0 05/24/2010 Ot 729.1 05/24/2010 Ot 729.5 05/24/2010 Ot 780.79 05/24/2010 Ot 791.9 04/08/2012 Ot 682.6 CELLULITIS OF LEG 05/08/2015 Ot 721.3 05/08/2015 Ot 733.90 05/08/2015 Ot 737.30 05/10/2015 DAWNA FOOTE MD, FACCP CCDS Ot I25.10 05/10/2015 QAMAR OLSON FACC, DAWNA LEBLANCP CCDS Ot I25.110 ATHSCL HEART DISEASE OF [place]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 ART W 05/10/2015 DAWNA FOOTE MD, FACCP CCDS Ot 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 05/10/2015 DAWNA FOOTE MD, FACCP CCDS Ot I45.10 UNSPECIFIED RIGHT BUNDLE-BRANCH BLOCK 05/10/2015 DAWNA FOOTE MD, FACCP CCDS Ot I47.1 SUPRAVENTRICULAR TACHYCARDIA 05/10/2015 DAWNA FOOTE MD, FACCP CCDS Ot I48.0 PAROXYSMAL ATRIAL FIBRILLATION 05/10/2015 DAWNA FOOTE MD, FACCP CCDS Ot I50.22 CHRONIC SYSTOLIC (CONGESTIVE) HEART FAIL 05/10/2015 QAMAR OLSON FACC, ALI FACP CCDS Ot I50.9 05/10/2015 QAMAR OLSON FACC, ALI FACP CCDS Ot I83.022 05/10/2015 QAMAR OLSON FACC, ALI FACP CCDS Ot 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 05/10/2015 QAMAR OLSON FACC, ALI FACP CCDS Ot I87.2 05/10/2015 QAMAR OLSON FACC, ALI FACP CCDS Ot 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 05/10/2015 QAMAR OLSON FACC, ALI FACP CCDS Ot R73.01 IMPAIRED FASTING GLUCOSE 05/10/2015 QAMAR OLSON FACC, ALI FACP CCDS Ot Z82.49 FAMILY HX OF ISCHEM HEART DIS AND OTH DI 05/10/2015 QAMAR OLSON FACC, ALI FACP CCDS Ot Z86.79 PERSONAL HISTORY OF OTHER DISEASES OF TH 05/21/2015 Ot 721.3 05/21/2015 Ot 733.90 05/21/2015 Ot 737.30 06/13/2015 QAMAR OLSON FACC, DAWNA FACP CCDS Ot I25.10 06/13/2015 QAMAR OLSON FACC, ALI FACP CCDS Ot I25.5 06/13/2015 QAMAR OLSON FACC, ALI FACP CCDS Ot I50.22 06/13/2015 QAMAR OLSON FACC, ALI FACP CCDS Ot M79.89 09/21/2015 Ot 721.3 09/21/2015 Ot 733.90 09/21/2015 Ot 737.30 09/21/2015 QAMAR LEBLANCC, ALI FACP CCDS Ot I25.10 09/21/2015 QAMAR OLSON FACC, ALI FACP CCDS Ot I25.5 09/21/2015 QAMAR OLSON FACC, ALI FACP CCDS Ot I50.22 09/21/2015 QAMAR OLSON FACC, ALI FACP CCDS Ot M79.89 10/17/2015 ELEN LOZANO PARKING ENFORCEMENT SPECIALIST Ot I25.10 10/17/2015 ELEN LOZANO PARKING ENFORCEMENT SPECIALIST Ot I25.5 10/17/2015 ELEN LOZANO PARKING ENFORCEMENT SPECIALIST Ot I50.22 10/25/2015 QAMAR MD FACC, ALI FACP CCDS Ot I25.10 10/25/2015 QAMAR OLSON FACC, ALI FACP CCDS Ot I25.5 10/25/2015 QAMAR OLSON FACC, ALI FACP CCDS Ot I50.22 10/25/2015 QAMAR OLSON FACC, ALI FACP CCDS Ot Z91.14 11/08/2015 QAMAR OLSON FACC, ALI FACP CCDS Ot I25.10 11/08/2015 QAMAR OLSON FACC, ALI FACP CCDS Ot I25.5 11/08/2015 QAMAR OLSON FACC, ALI FACP CCDS Ot I50.22 11/08/2015 QAMAR OLSON FACC, ALI FACP CCDS Ot Z91.14 11/30/2015 QAMAR OLSON FACC, ALI FACP CCDS Ot I25.10 ATHSCL HEART DISEASE OF [place] CORONARY 11/30/2015 QAMAR OLSON FACC, ALI FACP CCDS Ot 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 11/30/2015 QAMAR OLSON FACC, ALI FACP CCDS Ot I50.22 CHRONIC SYSTOLIC (CONGESTIVE) HEART FAIL 11/30/2015 QAMAR OLSON FACC, ALI FACP CCDS Ot Z91.14 PATIENT'S OTHER NONCOMPLIANCE WITH MEDIC 06/29/2017 DEMETRIA DELGADO MD Ot I25.2 OLD MYOCARDIAL INFARCTION 06/29/2017 DEMETRIA DELGADO MD Ot S81.812A LACERATION WITHOUT FOREIGN BODY, LEFT LO 06/29/2017 DEMETRIA DELGADO MD Ot S89.92XA UNSPECIFIED INJURY OF LEFT LOWER LEG, IN 06/29/2017 DEMETRIA DELGADO MD Ot W29.2XXA CONTACT WITH OTHER POWERED HOUSEHOLD MAC 06/29/2017 DEMETRIA DELGADO MD Ot Z90.710 ACQUIRED ABSENCE OF BOTH CERVIX AND UTER 06/30/2017 KELLY SIMENTAL APRN Ot S89.92XD UNSPECIFIED INJURY OF LEFT LOWER LEG, AGUILAR 06/30/2017 KELLY SIMENTAL APRN Ot W19.XXXD UNSPECIFIED FALL, SUBSEQUENT ENCOUNTER 07/02/2017 QAMAR OLSON FACC, ALI FACP CCDS Ot I25.10 ATHSCL HEART DISEASE OF [place] CORONARY 07/02/2017 QAMAR OLSON FACC, ALI FACP CCDS Ot 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 07/02/2017 QAMAR OLSON FACC, ALI FACP CCDS Ot I50.22 CHRONIC SYSTOLIC (CONGESTIVE) HEART FAIL 07/02/2017 QAMAR OLSON FACC, ALI FACP CCDS Ot M79.89 OTHER SPECIFIED SOFT TISSUE DISORDERS 07/02/2017 SEAMUS LOZANOHER L PARKING ENFORCEMENT SPECIALIST Ot I25.10 ATHSCL HEART DISEASE OF [place] CORONARY 07/02/2017 BAIMASEAMUSELEN L PARKING ENFORCEMENT SPECIALIST Ot 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 07/02/2017 BAIMA ELEN L PARKING ENFORCEMENT SPECIALIST Ot I50.22 CHRONIC SYSTOLIC (CONGESTIVE) HEART FAIL 07/02/2017 QAMAR OLSON FACC, ALI FACP CCDS Ot I25.10 ATHSCL HEART DISEASE OF [place] CORONARY 07/02/2017 QAMAR OLSON FACC, ALI FACP CCDS Ot 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 07/02/2017 QAMAR OLSON FACC, ALI FACP CCDS Ot I50.22 CHRONIC SYSTOLIC (CONGESTIVE) HEART FAIL 07/02/2017 QAMAR LEBLANCC, ALI FACP CCDS Ot Z91.14 PATIENT'S OTHER NONCOMPLIANCE WITH MEDIC 07/02/2017 QAMAR OLSON FACC, ALI FACP CCDS Ot I25.10 ATHSCL HEART DISEASE OF [place] CORONARY 07/02/2017 QAMAR LEBLANCC, ALI FACP CCDS Ot 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 07/02/2017 QAMAR LEBLANCC, ALI FACP CCDS Ot I50.22 CHRONIC SYSTOLIC (CONGESTIVE) HEART FAIL 07/02/2017 QAMAR LEBLANCC, ALI FACP CCDS Ot Z91.14 PATIENT'S OTHER NONCOMPLIANCE WITH MEDIC 07/03/2017 QAMAR LEBLANCC, ALI FACP CCDS Ot I25.10 ATHSCL HEART DISEASE OF [place] CORONARY 07/03/2017 QAMAR LEBLANCC, ALI FACP CCDS Ot 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 07/03/2017 QAMAR LEBLANCC, ALI FACP CCDS Ot I50.22 CHRONIC SYSTOLIC (CONGESTIVE) HEART FAIL 07/03/2017 QAMAR LEBLANCC, ALI FACP CCDS Ot M79.89 OTHER SPECIFIED SOFT TISSUE DISORDERS 07/03/2017 BAIMASEAMUSELEN L PARKING ENFORCEMENT SPECIALIST Ot I25.10 ATHSCL HEART DISEASE OF [place] CORONARY 07/03/2017 NICKIMA ELEN L PARKING ENFORCEMENT SPECIALIST Ot 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 07/03/2017 NICKIJOSE EDUAROD ELEN L PARKING ENFORCEMENT SPECIALIST Ot I50.22 CHRONIC SYSTOLIC (CONGESTIVE) HEART FAIL 07/03/2017 QAMAR OLSON FACC, DAWNA FACP CCDS Ot I25.10 ATHSCL HEART DISEASE OF [place] CORONARY 07/03/2017 QAMAR OLSON FACC, ALI FACP CCDS Ot 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 07/03/2017 QAMAR OLSON FACC, ALI FACP CCDS Ot I50.22 CHRONIC SYSTOLIC (CONGESTIVE) HEART FAIL 07/03/2017 QAMAR OLSON FACC, ALI FACP CCDS Ot Z91.14 PATIENT'S OTHER NONCOMPLIANCE WITH MEDIC 07/03/2017 QAMAR OLSON FACC, ALI FACP CCDS Ot I25.10 ATHSCL HEART DISEASE OF [place] CORONARY 07/03/2017 QAMAR OLSON FACC, DAWNA FACP CCDS Ot 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 07/03/2017 QAMAR OLSON FACC, DAWNA FACP CCDS Ot I50.22 CHRONIC SYSTOLIC (CONGESTIVE) HEART FAIL 07/03/2017 QAMAR OLSON FACC, ALI FACP CCDS Ot Z91.14 PATIENT'S OTHER NONCOMPLIANCE WITH MEDIC 07/03/2017 JUAN MCLEOD PUBLIC RELATIONS STUDIES DIRECTOR Ot L03.116 CELLULITIS OF LEFT LOWER LIMB 07/03/2017 JUAN MCLEOD PUBLIC RELATIONS STUDIES DIRECTOR Ot S81.812D LACERATION WITHOUT FOREIGN BODY, LEFT LO 07/08/2017 JUAN MCLEOD PUBLIC RELATIONS STUDIES DIRECTOR Ot L03.116 CELLULITIS OF LEFT LOWER LIMB 07/08/2017 JUAN MCLEOD PUBLIC RELATIONS STUDIES DIRECTOR Ot S81.812D LACERATION WITHOUT FOREIGN BODY, LEFT LO 07/11/2017 QAMAR OLSON FACC, DAWNA FACP CCDS Ot I11.0 HYPERTENSIVE HEART DISEASE WITH HEART FA 07/11/2017 QAMAR OLSON FACC, DAWNA FACP CCDS Ot I25.10 ATHSCL HEART DISEASE OF [place] CORONARY 07/11/2017 QAMAR OLSON FACC, DAWNA FACP CCDS Ot 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 07/11/2017 QAMAR OLSON FACC, DAWNA FACP CCDS Ot I45.10 UNSPECIFIED RIGHT BUNDLE-BRANCH BLOCK 07/11/2017 QAMAR OLSON FACC, ALI FACP CCDS Ot I48.0 PAROXYSMAL ATRIAL FIBRILLATION 07/11/2017 QAMAR OLSON FACC, ALI FACP CCDS Ot I50.22 CHRONIC SYSTOLIC (CONGESTIVE) HEART FAIL 07/11/2017 DAWNA FOOTE MD, FACC FACP CCDS Ot I70.1 ATHEROSCLEROSIS OF RENAL ARTERY 07/11/2017 DAWNA FOOTE MD, FACC FACP CCDS Ot 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 07/11/2017 DAWNA FOOTE MD, FACC FACP CCDS Ot 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 ULC 07/11/2017 DAWNA FOOTE MD, FACC FACP CCDS Ot I77.811 ABDOMINAL AORTIC ECTASIA 07/11/2017 DAWNA FOOTE MD, FACC FACP CCDS Ot L97.222 NON-PRESSURE CHRONIC ULCER OF LEFT CALF 07/11/2017 DAWNA FOOTE MD, FACCP CCDS Ot R73.01 IMPAIRED FASTING GLUCOSE 07/11/2017 DAWNA FOOTE MD, FACC FACP CCDS Ot Z79.01 SKILLED NURSING (CURRENT) USE OF ANTICOAGULANT 07/11/2017 DAWNA FOOTE MD, FACC FACP CCDS Ot Z79.02 UNDERWRITING SPECIALIST (CURRENT) USE OF ANTITHROMBOTI 07/11/2017 DAWNA FOOTE MD, FACC FACP CCDS Ot Z79.899 OTHER UNDERWRITING SPECIALIST (CURRENT) DRUG THERAPY 07/16/2017 DAWNA FOOTE MD, FACC FACP CCDS Ot I11.0 HYPERTENSIVE HEART DISEASE WITH HEART FA 07/16/2017 DAWNA FOOTE MD, FACC FACP CCDS Ot I25.10 ATHSCL HEART DISEASE OF [place] CORONARY 07/16/2017 DAWNA FOOTE MD, FACC FACP CCDS Ot 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 07/16/2017 DAWNA FOOTE MD, FACC FACP CCDS Ot I45.10 UNSPECIFIED RIGHT BUNDLE-BRANCH BLOCK 07/16/2017 DAWNA FOOTE MD, FACC FACP CCDS Ot I48.0 PAROXYSMAL ATRIAL FIBRILLATION 07/16/2017 DAWNA FOOTE MD, FACC FACP CCDS Ot I50.22 CHRONIC SYSTOLIC (CONGESTIVE) HEART FAIL 07/16/2017 DAWNA FOOTE MD, FACC FACP CCDS Ot I70.1 ATHEROSCLEROSIS OF RENAL ARTERY 07/16/2017 DAWNA FOOTE MD, FACCP CCDS Ot 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 07/16/2017 DAWNA FOOTE MD, FACC FACP CCDS Ot 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 ULC 07/16/2017 AQMAR OLSON FACC, DAWNA FACP CCDS Ot I77.811 ABDOMINAL AORTIC ECTASIA 07/16/2017 QAMAR OLSON FACC, DAWNA FACP CCDS Ot L97.222 NON-PRESSURE CHRONIC ULCER OF LEFT CALF 07/16/2017 DAWNA FOOTE MD, FACC FACP CCDS Ot R73.01 IMPAIRED FASTING GLUCOSE 07/16/2017 DAWNA FOOTE MD, FACC FACP CCDS Ot Z79.01 SKILLED NURSING (CURRENT) USE OF ANTICOAGULANT 07/16/2017 DAWNA FOOTE MD, FACC FACP CCDS Ot Z79.02 UNDERWRITING SPECIALIST (CURRENT) USE OF ANTITHROMBOTI 07/16/2017 QAMAR OSLON FACC, DAWNA FACP CCDS Ot Z79.899 OTHER UNDERWRITING SPECIALIST (CURRENT) DRUG THERAPY 07/18/2017 DAWNA FOOTE MD, FACC FACP CCDS Ot I11.0 HYPERTENSIVE HEART DISEASE WITH HEART FA 07/18/2017 DAWNA FOOTE MD, FACC FACP CCDS Ot I25.10 ATHSCL HEART DISEASE OF [place] CORONARY 07/18/2017 QAMAR OLSON FACC, DAWNA FACP CCDS Ot 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 07/18/2017 QAMAR OLSON FACC, ALI FACP CCDS Ot I45.10 UNSPECIFIED RIGHT BUNDLE-BRANCH BLOCK 07/18/2017 DAWNA FOOTE MD, FACC FACP CCDS Ot I48.0 PAROXYSMAL ATRIAL FIBRILLATION 07/18/2017 QAMAR OLSON FACC, DAWNA FACP CCDS Ot I50.22 CHRONIC SYSTOLIC (CONGESTIVE) HEART FAIL 07/18/2017 DAWNA FOOTE MD, FACC FACP CCDS Ot I70.1 ATHEROSCLEROSIS OF RENAL ARTERY 07/18/2017 QAMAR OLSON FACC, DAWNA FACP CCDS Ot 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 07/18/2017 DAWNA FOOTE MD, FACC FACP CCDS Ot 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 ULC 07/18/2017 DAWNA FOOTE MD, FACC FACP CCDS Ot I77.811 ABDOMINAL AORTIC ECTASIA 07/18/2017 QAMAR OLSON FACC, DAWNA FACP CCDS Ot L97.222 NON-PRESSURE CHRONIC ULCER OF LEFT CALF 07/18/2017 DAWNA FOOTE MD, FACC FACP CCDS Ot R73.01 IMPAIRED FASTING GLUCOSE 07/18/2017 DAWNA FOOTE MD, FACC FACP CCDS Ot Z79.01 UNDERWRITING SPECIALIST (CURRENT) USE OF ANTICOAGULANT 07/18/2017 DAWNA FOOTE MD, FACC FACP CCDS Ot Z79.02 UNDERWRITING SPECIALIST (CURRENT) USE OF ANTITHROMBOTI 07/18/2017 DAWNA FOOTE MD, FACC FACP CCDS Ot Z79.899 OTHER UNDERWRITING SPECIALIST (CURRENT) DRUG THERAPY 07/20/2017 QAMAR OLSON FACC, DAWNA FACP CCDS Ot I11.0 HYPERTENSIVE HEART DISEASE WITH HEART FA 07/20/2017 DAWNA FOOTE MD, FACC FACP CCDS Ot I25.10 ATHSCL HEART DISEASE OF [place] CORONARY 07/20/2017 DAWNA FOOTE MD, FACC FACP CCDS Ot 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 07/20/2017 QAMAR OLSON FACC, DAWNA FACP CCDS Ot I45.10 UNSPECIFIED RIGHT BUNDLE-BRANCH BLOCK 07/20/2017 DAWNA FOOTE MD, FACC FACP CCDS Ot I48.0 PAROXYSMAL ATRIAL FIBRILLATION 07/20/2017 QAMAR OLSON FACC, DAWNA FACP CCDS Ot I50.22 CHRONIC SYSTOLIC (CONGESTIVE) HEART FAIL 07/20/2017 QAMAR OLSON FACC, DAWNA FACP CCDS Ot I70.1 ATHEROSCLEROSIS OF RENAL ARTERY 07/20/2017 QAMAR OLSON FACC, DAWNA FACP CCDS Ot 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 07/20/2017 QAMAR OLSON FACC, ALI FACP CCDS Ot 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 ULC 07/20/2017 QAMAR OLSON FACC, DAWNA FACP CCDS Ot I77.811 ABDOMINAL AORTIC ECTASIA 07/20/2017 QAMAR OLSON FACC, ALI FACP CCDS Ot L97.222 NON-PRESSURE CHRONIC ULCER OF LEFT CALF 07/20/2017 DAWNA FOOTE MD, FACC FACP CCDS Ot R73.01 IMPAIRED FASTING GLUCOSE 07/20/2017 DAWNA FOOTE MD, FACC FACP CCDS Ot Z79.01 UNDERWRITING SPECIALIST (CURRENT) USE OF ANTICOAGULANT 07/20/2017 DAWNA FOOTE MD, FACC FACP CCDS Ot Z79.02 UNDERWRITING SPECIALIST (CURRENT) USE OF ANTITHROMBOTI 07/20/2017 DAWNA FOOTE MD, FACC FACP CCDS Ot Z79.899 OTHER UNDERWRITING SPECIALIST (CURRENT) DRUG THERAPY 07/21/2017 QAMAR OLSON FACC, DAWNA FACP CCDS Ot I11.0 HYPERTENSIVE HEART DISEASE WITH HEART FA 07/21/2017 QAMAR OLSON FACC, DAWNA FACP CCDS Ot I25.10 ATHSCL HEART DISEASE OF [place] CORONARY 07/21/2017 QAMAR OLSON FACC, DAWNA FACP CCDS Ot 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 07/21/2017 QAMAR OLSON FACC, ALI FACP CCDS Ot I45.10 UNSPECIFIED RIGHT BUNDLE-BRANCH BLOCK 07/21/2017 QAMAR OLSON FACC, ALI FACP CCDS Ot I48.0 PAROXYSMAL ATRIAL FIBRILLATION 07/21/2017 QAMAR OLSON FACC, ALI FACP CCDS Ot I50.22 CHRONIC SYSTOLIC (CONGESTIVE) HEART FAIL 07/21/2017 QAMAR OLSON FACC, DAWNA FACP CCDS Ot I70.1 ATHEROSCLEROSIS OF RENAL ARTERY 07/21/2017 QAMAR OLSON FACC, ALI FACP CCDS Ot 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 07/21/2017 QAMAR OLSON FACC, DAWNA FACP CCDS Ot 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 ULC 07/21/2017 QAMAR OLSON FACC, DAWNA FACP CCDS Ot I77.811 ABDOMINAL AORTIC ECTASIA 07/21/2017 QAMAR OLSON FACC, DAWNA FACP CCDS Ot L97.222 NON-PRESSURE CHRONIC ULCER OF LEFT CALF 07/21/2017 QAMAR OLSON FACC, ALI FACP CCDS Ot R73.01 IMPAIRED FASTING GLUCOSE 07/21/2017 QAMAR OLSON FACC, DAWNA FACP CCDS Ot Z79.01 SKILLED NURSING (CURRENT) USE OF ANTICOAGULANT 07/21/2017 QAMAR OLSON FACC, ALI FACP CCDS Ot Z79.02 UNDERWRITING SPECIALIST (CURRENT) USE OF ANTITHROMBOTI 07/21/2017 QAMAR OLSON FACC, DAWNA FACP CCDS Ot Z79.899 OTHER UNDERWRITING SPECIALIST (CURRENT) DRUG THERAPY 07/21/2017 QAMAR OLSON FACC, ALI FACP CCDS Ot I11.0 HYPERTENSIVE HEART DISEASE WITH HEART FA 07/21/2017 QAMAR OLSON FACC, ALI FACP CCDS Ot I25.10 ATHSCL HEART DISEASE OF [place] CORONARY 07/21/2017 QAMAR OLSON FACC, ALI FACP CCDS Ot 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 07/21/2017 QAMAR OLSON FACC, ALI FACP CCDS Ot I45.10 UNSPECIFIED RIGHT BUNDLE-BRANCH BLOCK 07/21/2017 QAMAR OLSON FACC, ALI FACP CCDS Ot I48.0 PAROXYSMAL ATRIAL FIBRILLATION 07/21/2017 QAMAR OLSON FACC, ALI FACP CCDS Ot I50.22 CHRONIC SYSTOLIC (CONGESTIVE) HEART FAIL 07/21/2017 QAMAR OLSON FACC, ALI FACP CCDS Ot I70.1 ATHEROSCLEROSIS OF RENAL ARTERY 07/21/2017 QAMAR OLSON FACC, ALI FACP CCDS Ot 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899 OTHER UNDERWRITING SPECIALIST (CURRENT) DRUG THERAPY 07/28/2017 BELTRAN MITCHELL MD Ot 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 ULC 07/28/2017 BELTRAN MITCHELL MD Ot 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 07/28/2017 BELTRAN MITCHELL MD Ot L97.222 NON-PRESSURE CHRONIC ULCER OF LEFT CALF 07/28/2017 BELTRAN MITCHELL MD Ot S81.812A LACERATION WITHOUT FOREIGN BODY, LEFT LO 07/29/2017 JUAN MCLEOD APRN Ot L03.116 CELLULITIS OF LEFT LOWER LIMB 07/29/2017 JUAN MCLEOD APRN Ot S81.812D LACERATION WITHOUT FOREIGN BODY, LEFT LO 07/29/2017 BELTRAN MITCHELL MD, Ot 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 ULC 07/29/2017 BELTRAN MITCHELL MD Ot 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 07/29/2017 BELTRAN MITCHELL MD, Ot L97.222 NON-PRESSURE CHRONIC ULCER OF LEFT CALF 07/29/2017 BELTRAN MITCHELL MD, Ot S81.812A LACERATION WITHOUT FOREIGN BODY, LEFT LO 08/04/2017 BELTRAN MITCHELL MD Ot 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 08/04/2017 BELTRAN MITCHELL MD, Ot 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 08/04/2017 BELTRAN MITCHELL MD, Ot L97.222 NON-PRESSURE CHRONIC ULCER OF LEFT CALF 08/04/2017 BELTRAN MITCHELL MD, Ot S81.812A LACERATION WITHOUT FOREIGN BODY, LEFT LO 08/06/2017 BELTRAN MITCHELL MD, Ot 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 08/06/2017 BELTRAN MITCHELL MD, Ot 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 08/06/2017 BELTRAN MITCHELL MD, Ot L97.222 NON-PRESSURE CHRONIC ULCER OF LEFT CALF 08/06/2017 BELTRAN MITCHELL MD, Ot S81.812A LACERATION WITHOUT FOREIGN BODY, LEFT LO 08/07/2017 QAMAR OLSON FACC, DAWNA FACP CCDS Ot I11.0 HYPERTENSIVE HEART DISEASE WITH HEART FA 08/07/2017 QAMAR OLSON FACC, DAWNA FACP CCDS Ot I25.10 ATHSCL HEART DISEASE OF [place] CORONARY 08/07/2017 QAMAR OLSON FACC, DAWNA FACP CCDS Ot 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 08/07/2017 QAMAR OLSON FACC, DAWNA FACP CCDS Ot I45.10 UNSPECIFIED RIGHT BUNDLE-BRANCH BLOCK 08/07/2017 QAMAR OLSON FACC, DAWNA FACP CCDS Ot I48.0 PAROXYSMAL ATRIAL FIBRILLATION 08/07/2017 QAMAR OLSON FACC, DAWNA FACP CCDS Ot I50.22 CHRONIC SYSTOLIC (CONGESTIVE) HEART FAIL 08/07/2017 QAMAR OLSON FACC, DAWNA FACP CCDS Ot I70.1 ATHEROSCLEROSIS OF RENAL ARTERY 08/07/2017 QAMAR OLSON FACC, DAWNA FACP CCDS Ot 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 08/07/2017 QAMAR OLSON FACC, DAWNA FACP CCDS Ot 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 08/07/2017 DAWNA FOOTE MD, FACC FACP CCDS Ot I77.811 ABDOMINAL AORTIC ECTASIA 08/07/2017 QAMAR OLSON FACC, ALI FACP CCDS Ot L97.222 NON-PRESSURE CHRONIC ULCER OF LEFT CALF 08/07/2017 QAMAR OLSON FACC, DAWNA FACP CCDS Ot R73.01 IMPAIRED FASTING GLUCOSE 08/07/2017 QAMAR OLSON FACC, ALI FACP CCDS Ot Z79.01 UNDERWRITING SPECIALIST (CURRENT) USE OF ANTICOAGULANT 08/07/2017 DAWNA FOOTE MD, FACC FACP CCDS Ot Z79.02 UNDERWRITING SPECIALIST (CURRENT) USE OF ANTITHROMBOTI 08/07/2017 DAWNA FOOTE MD, FACC FACP CCDS Ot Z79.899 OTHER UNDERWRITING SPECIALIST (CURRENT) DRUG THERAPY 08/14/2017 BELTRAN MITCHELL MD Ot 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 [facility] 08/14/2017 BELTRAN MITCHELL MD, Ot 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 08/14/2017 BELTRAN MITCHELL MD Ot L97.222 NON-PRESSURE CHRONIC ULCER OF LEFT CALF 08/18/2017 DAWNA FOOTE MD, FACC FACP CCDS Ot I25.10 ATHSCL HEART DISEASE OF [place] CORONARY 08/18/2017 QAMAR OLSON FACC, ALI FACP CCDS Ot I48.0 PAROXYSMAL ATRIAL FIBRILLATION 08/18/2017 QAMAR OLSON FACC, ALI FACP CCDS Ot I50.22 CHRONIC SYSTOLIC (CONGESTIVE) HEART FAIL 08/18/2017 QAMAR OLSON FACC, ALI FACP CCDS Ot 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 08/21/2017 BELTRAN MITCHELL MD Ot L97.222 NON-PRESSURE CHRONIC ULCER OF LEFT CALF 08/21/2017 BELTRAN MITCHELL MD, Ot S81.812A LACERATION WITHOUT FOREIGN BODY, LEFT LO 08/24/2017 BELTRAN MITCHELL MD, Ot 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 [facility] 08/24/2017 BELTRAN MITCHELL MD, Ot 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 08/24/2017 BELTRAN MITCHELL MD, Ot L97.222 NON-PRESSURE CHRONIC ULCER OF LEFT CALF 08/31/2017 BELTRAN MITCHELL MD, Ot 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 [facility] 08/31/2017 BELTRAN MITCHELL MD, Ot 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 08/31/2017 BELTRAN MITCHELL MD Ot L97.222 NON-PRESSURE CHRONIC ULCER OF LEFT CALF 09/09/2017 BELTRAN MITCHELL MD Ot 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 09/18/2017 BELTRAN MITCHELL MD Ot L97.222 NON-PRESSURE CHRONIC ULCER OF LEFT CALF 09/24/2017 BELTRAN MITCHELL MD Ot 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 09/24/2017 BELTRAN MITCHELL MD Ot 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 09/24/2017 BELTRAN MITCHELL MD Ot L97.222 NON-PRESSURE CHRONIC ULCER OF LEFT CALF 09/28/2017 BELTRAN MITCHELL MD Ot 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 [facility] 09/28/2017 BELTRAN MITCHELL MD Ot 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 09/28/2017 BELTRAN MITCHELL MD, Ot L97.222 NON-PRESSURE CHRONIC ULCER OF LEFT CALF 09/28/2017 BELTRAN MITCHELL MD, Ot 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 [facility] 09/28/2017 BELTRAN MITCHELL MD Ot 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 09/28/2017 BELTRAN MITCHELL MD, Ot L97.222 NON-PRESSURE CHRONIC ULCER OF LEFT CALF 2017 BELTRAN MITCHELL MD Ot 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 [facility] 2017 BELTRAN MITCHELL MD Ot 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 2017 BELTRAN MITCHELL MD Ot L97.222 NON-PRESSURE CHRONIC ULCER OF LEFT CALF 2017 BELTRAN MITCHELL MD Ot 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 [facility] 2017 BELTRAN MITCHELL MD Ot 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 2017 BELTRAN MITCHELL MD Ot L97.222 NON-PRESSURE CHRONIC ULCER OF LEFT CALF 12/02/2017 BELTRAN MITCHELL MD Ot 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9 PERIPHERAL VASCULAR DISEASE, UNSPECIFIED 01/27/2018 ELEN LOZANO [employer]IST Ot Z91.14 PATIENT'S OTHER NONCOMPLIANCE WITH MEDIC 02/24/2018 ELEN LOZANO [employer]IST Ot I08.1 RHEUMATIC DISORDERS OF BOTH MITRAL AND T 02/24/2018 ELEN LOZANO [employer] SPECIALIST Ot I25.10 ATHSCL HEART DISEASE OF [place] CORONARY 02/24/2018 ELEN LOZANO [employer] SPECIALIST Ot I48.0 PAROXYSMAL ATRIAL FIBRILLATION 02/24/2018 BAIELEN WHITT [employer] SPECIALIST Ot I50.22 CHRONIC SYSTOLIC (CONGESTIVE) HEART FAIL 02/24/2018 ELEN LOZANO [employer] Ot I73.9 PERIPHERAL VASCULAR DISEASE, UNSPECIFIED 02/24/2018 ELEN LOZANO [employer]IST Ot Z91.14 PATIENT'S OTHER NONCOMPLIANCE WITH MEDIC Procedures Code Description Performed By Performed On [id number] DILATION OF 1 COR ART WITH DRUG-ELUT INT 05/08/2015 [id number] MEASURE OF CARDIAC SAMPL PRESSURE, L H 05/08/2015 [id number] FLUOROSCOPY OF MULTIPLE CORONARY ARTERIE 05/08/2015 [id number] FLUOROSCOPY OF LEFT HEART USING LOW OSMO 05/08/2015 Results Test Result Range Complete blood count (CBC) with automated white blood cell (WBC) differential - 06/28/17 21:57 Blood leukocytes automated count (number/volume) 5.7 10*3/uL 4.3-11.0 Blood erythrocytes automated count (number/volume) 4.04 10*6/uL 4.35-5.85 Venous blood hemoglobin measurement (mass/volume) 13.0 g/dL 11.5-16.0 Blood hematocrit (volume fraction) 39 % 35-52 Automated erythrocyte mean corpuscular volume 97 [foz_us] 80-99 Automated erythrocyte mean corpuscular hemoglobin (mass per erythrocyte) 32 pg 25-34 Automated erythrocyte mean corpuscular hemoglobin concentration measurement ( mass/volume) 33 g/dL 32-36 Automated erythrocyte distribution width ratio 13.3 % 10.0-14.5 Automated blood platelet count (count/volume) 202 10*3/uL 130-400 Automated blood platelet mean volume measurement 9.7 [foz_us] 7.4-10.4 Automated blood neutrophils/100 leukocytes 48 % 42-75 Automated blood lymphocytes/100 leukocytes 39 % 12-44 Blood monocytes/100 leukocytes 13 % 0-12 Automated blood eosinophils/100 leukocytes 1 % 0-10 Automated blood basophils/100 leukocytes 0 % 0-10 Blood neutrophils automated count (number/volume) 2.8 10*3 1.8-7.8 Blood lymphocytes automated count (number/volume) 2.2 10*3 1.0-4.0 Blood monocytes automated count (number/volume) 0.7 10*3 0.0-1.0 Automated eosinophil count 0.0 10*3/uL 0.0-0.3 Automated blood basophil count (count/volume) 0.0 10*3/uL 0.0-0.1 Comprehensive metabolic panel - 06/28/17 22:29 Serum or plasma sodium measurement (moles/volume) 140 mmol/L 135-145 Serum or plasma potassium measurement (moles/volume) 5.0 mmol/L 3.6-5.0 Serum or plasma chloride measurement (moles/volume) 106 mmol/L 98-107 Carbon dioxide 25 mmol/L 21-32 Serum or plasma anion gap determination (moles/volume) 9 mmol/L 5-14 Serum or plasma urea nitrogen measurement (mass/volume) 31 mg/dL 7-18 Serum or plasma creatinine measurement (mass/volume) 0.84 mg/dL 0.60-1.30 Serum or plasma urea nitrogen/creatinine mass ratio 37 NRG Serum or plasma creatinine measurement with calculation of estimated glomerular filtration rate > NRG Serum or plasma glucose measurement (mass/volume) 110 mg/dL 70-105 Serum or plasma calcium measurement (mass/volume) 8.6 mg/dL 8.5-10.1 Serum or plasma total bilirubin measurement (mass/volume) 0.6 mg/dL 0.1-1.0 Serum or plasma alkaline phosphatase measurement (enzymatic activity/volume) 92 U/L 40-136 Serum or plasma aspartate aminotransferase measurement (enzymatic activity/ volume) 27 U/L 5-34 Serum or plasma alanine aminotransferase measurement (enzymatic activity/volume ) 22 U/L 0-55 Serum or plasma protein measurement (mass/volume) 6.5 g/dL 6.4-8.2 Serum or plasma albumin measurement (mass/volume) 3.7 g/dL 3.2-4.5 Automated blood complete blood count (hemogram) panel - 07/10/17 12:52 Blood leukocytes automated count (number/volume) 5.8 10*3/uL 4.3-11.0 Blood erythrocytes automated count (number/volume) 3.75 10*6/uL 4.35-5.85 Venous blood hemoglobin measurement (mass/volume) 12.1 g/dL 11.5-16.0 Blood hematocrit (volume fraction) 37 % 35-52 Automated erythrocyte mean corpuscular volume 100 [foz_us] 80-99 Automated erythrocyte mean corpuscular hemoglobin (mass per erythrocyte) 32 pg 25-34 Automated erythrocyte mean corpuscular hemoglobin concentration measurement ( mass/volume) 32 g/dL 32-36 Automated erythrocyte distribution width ratio 13.8 % 10.0-14.5 Automated blood platelet count (count/volume) 340 10*3/uL 130-400 Automated blood platelet mean volume measurement 9.4 [foz_us] 7.4-10.4 PT panel in platelet poor plasma by coagulation assay - 07/10/17 12:52 Prothrombin time (PT) in platelet poor plasma by coagulation assay 14.8 s 12.2-14.7 INR in platelet poor plasma or blood by coagulation assay 1.2 0.8-1.4 Activated partial thromboplastin time (aPTT) in platelet poor plasma bycoagulation assay - 07/10/17 12:52 Activated partial thromboplastin time (aPTT) in platelet poor plasma bycoagulation assay 33 s 24-35 Comprehensive metabolic panel - 07/10/17 12:52 Serum or plasma sodium measurement (moles/volume) 140 mmol/L 135-145 Serum or plasma potassium measurement (moles/volume) 4.7 mmol/L 3.6-5.0 Serum or plasma chloride measurement (moles/volume) 106 mmol/L 98-107 Carbon dioxide 23 mmol/L 21-32 Serum or plasma anion gap determination (moles/volume) 11 mmol/L 5-14 Serum or plasma urea nitrogen measurement (mass/volume) 27 mg/dL 7-18 Serum or plasma creatinine measurement (mass/volume) 0.84 mg/dL 0.60-1.30 Serum or plasma urea nitrogen/creatinine mass ratio 32 NRG Serum or plasma creatinine measurement with calculation of estimated glomerular filtration rate > NRG Serum or plasma glucose measurement (mass/volume) 99 mg/dL 70-105 Serum or plasma calcium measurement (mass/volume) 9.0 mg/dL 8.5-10.1 Serum or plasma total bilirubin measurement (mass/volume) 0.7 mg/dL 0.1-1.0 Serum or plasma alkaline phosphatase measurement (enzymatic activity/volume) 104 U/L 40-136 Serum or plasma aspartate aminotransferase measurement (enzymatic activity/ volume) 19 U/L 5-34 Serum or plasma alanine aminotransferase measurement (enzymatic activity/volume ) 14 U/L 0-55 Serum or plasma protein measurement (mass/volume) 7.2 g/dL 6.4-8.2 Serum or plasma albumin measurement (mass/volume) 4.0 g/dL 3.2-4.5 Methicillin resistant Staphylococcus aureus (MRSA) screening culture - 12:52 Methicillin resistant Staphylococcus aureus (MRSA) screening culture NEG NR Automated blood complete blood count (hemogram) panel - 07/11/17 04:01 Blood leukocytes automated count (number/volume) 5.8 10*3/uL 4.3-11.0 Blood erythrocytes automated count (number/volume) 3.49 10*6/uL 4.35-5.85 Venous blood hemoglobin measurement (mass/volume) 11.1 g/dL 11.5-16.0 Blood hematocrit (volume fraction) 35 % 35-52 Automated erythrocyte mean corpuscular volume 100 [foz_us] 80-99 Automated erythrocyte mean corpuscular hemoglobin (mass per erythrocyte) 32 pg 25-34 Automated erythrocyte mean corpuscular hemoglobin concentration measurement ( mass/volume) 32 g/dL 32-36 Automated erythrocyte distribution width ratio 13.8 % 10.0-14.5 Automated blood platelet count (count/volume) 279 10*3/uL 130-400 Automated blood platelet mean volume measurement 9.8 [foz_us] 7.4-10.4 Whole blood basic metabolic panel - 07/11/17 04:01 Serum or plasma sodium measurement (moles/volume) 139 mmol/L 135-145 Serum or plasma potassium measurement (moles/volume) 5.8 mmol/L 3.6-5.0 Serum or plasma chloride measurement (moles/volume) 106 mmol/L 98-107 Carbon dioxide 17 mmol/L 21-32 Serum or plasma anion gap determination (moles/volume) 16 mmol/L 5-14 Serum or plasma urea nitrogen measurement (mass/volume) 32 mg/dL 7-18 Serum or plasma creatinine measurement (mass/volume) 1.14 mg/dL 0.60-1.30 Serum or plasma urea nitrogen/creatinine mass ratio 28 NRG Serum or plasma creatinine measurement with calculation of estimated glomerular filtration rate 45 NRG Serum or plasma glucose measurement (mass/volume) 128 mg/dL 70-105 Serum or plasma calcium measurement (mass/volume) 9.0 mg/dL 8.5-10.1 Complete blood count (CBC) with automated white blood cell (WBC) differential - 07/20/17 11:36 Blood leukocytes automated count (number/volume) 5.0 10*3/uL 4.3-11.0 Blood erythrocytes automated count (number/volume) 3.39 10*6/uL 4.35-5.85 Venous blood hemoglobin measurement (mass/volume) 10.9 g/dL 11.5-16.0 Blood hematocrit (volume fraction) 34 % 35-52 Automated erythrocyte mean corpuscular volume 102 [foz_us] 80-99 Automated erythrocyte mean corpuscular hemoglobin (mass per erythrocyte) 32 pg 25-34 Automated erythrocyte mean corpuscular hemoglobin concentration measurement ( mass/volume) 32 g/dL 32-36 Automated erythrocyte distribution width ratio 14.1 % 10.0-14.5 Automated blood platelet count (count/volume) 329 10*3/uL 130-400 Automated blood platelet mean volume measurement 9.2 [foz_us] 7.4-10.4 Automated blood neutrophils/100 leukocytes 60 % 42-75 Automated blood lymphocytes/100 leukocytes 24 % 12-44 Blood monocytes/100 leukocytes 15 % 0-12 Automated blood eosinophils/100 leukocytes 1 % 0-10 Automated blood basophils/100 leukocytes 1 % 0-10 Blood neutrophils automated count (number/volume) 3.0 10*3 1.8-7.8 Blood lymphocytes automated count (number/volume) 1.2 10*3 1.0-4.0 Blood monocytes automated count (number/volume) 0.7 10*3 0.0-1.0 Automated eosinophil count 0.1 10*3/uL 0.0-0.3 Automated blood basophil count (count/volume) 0.0 10*3/uL 0.0-0.1 Comprehensive metabolic panel - 07/20/17 11:36 Serum or plasma sodium measurement (moles/volume) 139 mmol/L 135-145 Serum or plasma potassium measurement (moles/volume) 4.7 mmol/L 3.6-5.0 Serum or plasma chloride measurement (moles/volume) 104 mmol/L 98-107 Carbon dioxide 27 mmol/L 21-32 Serum or plasma anion gap determination (moles/volume) 8 mmol/L 5-14 Serum or plasma urea nitrogen measurement (mass/volume) 21 mg/dL 7-18 Serum or plasma creatinine measurement (mass/volume) 0.81 mg/dL 0.60-1.30 Serum or plasma urea nitrogen/creatinine mass ratio 26 NRG Serum or plasma creatinine measurement with calculation of estimated glomerular filtration rate > NRG Serum or plasma glucose measurement (mass/volume) 63 mg/dL 70-105 Serum or plasma calcium measurement (mass/volume) 8.5 mg/dL 8.5-10.1 Serum or plasma total bilirubin measurement (mass/volume) 0.5 mg/dL 0.1-1.0 Serum or plasma alkaline phosphatase measurement (enzymatic activity/volume) 102 U/L 40-136 Serum or plasma aspartate aminotransferase measurement (enzymatic activity/ volume) 16 U/L 5-34 Serum or plasma alanine aminotransferase measurement (enzymatic activity/volume ) 14 U/L 0-55 Serum or plasma protein measurement (mass/volume) 6.6 g/dL 6.4-8.2 Serum or plasma albumin measurement (mass/volume) 3.6 g/dL 3.2-4.5 Magnesium - 07/20/17 11:36 Magnesium 2.1 mg/dL 1.8-2.4 Bacteria identification in isolate by anaerobe culture - 07/29/17 14:41 Bacteria identification in isolate by anaerobe culture NOANA NR Gram stain microscopy - 07/29/17 14:41 GRAM STAIN RESULT FEW GRAM POSITIVE COCCI NR Bacteria identification in wound by culture - 07/29/17 14:41 Bacteria identification in wound by culture [id number] NR FREE TEXT EXTERNAL SENSITIVITY REPORTED AT 1217, 08-01-17 NRG QUANTITY OF GROWTH Scant Growth NR Bacterial susceptibility panel - 07/29/17 14:41 Oxacillin susceptibility test by minimum inhibitory concentration > = NRG Gentamicin susceptibility test by minimum inhibitory concentration < = NRG Clindamycin susceptibility test by minimum inhibitory concentration <= NRG Erythromycin susceptibility test by minimum inhibitory concentration >= NRG Trimethoprim/sulfamethoxazole susceptibility test by minimum inhibitoryconcentration S NRG Vancomycin susceptibility test by minimum inhibitory concentration 1 NRG Levofloxacin susceptibility test by minimum inhibitory concentration 4 NRG Rifampin susceptibility test by minimum inhibitory concentration <= NRG Tetracycline susceptibility test by minimum inhibitory concentration <= NRG Ciprofloxacin susceptibility test by minimum inhibitory concentration R NRG Linezolid susceptibility test by minimum inhibitory concentration 1 NR Bacterial susceptibility panel - 07/29/17 14:41 Gentamicin susceptibility test by minimum inhibitory concentration S NRG Erythromycin susceptibility test by minimum inhibitory concentration 1 NRG Vancomycin susceptibility test by minimum inhibitory concentration 1 NRG Ampicillin susceptibility test by minimum inhibitory concentration < = NRG Linezolid susceptibility test by minimum inhibitory concentration 2 NRG Bacteria identification in isolate by anaerobe culture - 08/21/17 12:01 Bacteria identification in isolate by anaerobe culture NOANA NRG Gram stain microscopy - 08/21/17 12:01 GRAM STAIN RESULT FEW WBC'S, NO BACTERIA OBSERVED NRG Bacteria identification in wound by culture - 08/21/17 12:01 Bacteria identification in wound by culture [id number] NRG FREE TEXT EXTERNAL SLOW GROWTH NRG QUANTITY OF GROWTH Scant Growth NRG FREE TEXT ENTRY 2 SEE COMMENT FOR REPORT FROM REF[facility] Bacterial susceptibility panel - 08/21/17 12:01 Oxacillin susceptibility test by minimum inhibitory concentration < = NRG Gentamicin susceptibility test by minimum inhibitory concentration < = NRG Clindamycin susceptibility test by minimum inhibitory concentration R NRG Erythromycin susceptibility test by minimum inhibitory concentration >= NRG Trimethoprim/sulfamethoxazole susceptibility test by minimum inhibitoryconcentration R NRG Vancomycin susceptibility test by minimum inhibitory concentration 1 NRG Levofloxacin susceptibility test by minimum inhibitory concentration >= NRG Rifampin susceptibility test by minimum inhibitory concentration <= NRG Tetracycline susceptibility test by minimum inhibitory concentration >= NRG Ciprofloxacin susceptibility test by minimum inhibitory concentration R NRG Linezolid susceptibility test by minimum inhibitory concentration 1 NR Bacterial susceptibility panel - 08/21/17 12:01 Gentamicin susceptibility test by minimum inhibitory concentration 8 NRG Tobramycin susceptibility test by minimum inhibitory concentration S NRG Ciprofloxacin susceptibility test by minimum inhibitory concentration <= NRG Meropenem susceptibility test by minimum inhibitory concentration 1 NRG Cefepime susceptibility test by minimum inhibitory concentration 8 NRG Complete blood count (CBC) with automated white blood cell (WBC) differential - 07/14/18 13:25 Blood leukocytes automated count (number/volume) 4.8 10*3/uL 4.3-11.0 Blood erythrocytes automated count (number/volume) 4.15 10*6/uL 4.35-5.85 Venous blood hemoglobin measurement (mass/volume) 13.2 g/dL 11.5-16.0 Blood hematocrit (volume fraction) 42 % 35-52 Automated erythrocyte mean corpuscular volume 100 [foz_us] 80-99 Automated erythrocyte mean corpuscular hemoglobin (mass per erythrocyte) 32 pg 25-34 Automated erythrocyte mean corpuscular hemoglobin concentration measurement ( mass/volume) 32 g/dL 32-36 Automated erythrocyte distribution width ratio 14.0 % 10.0-14.5 Automated blood platelet count (count/volume) 245 10*3/uL 130-400 Automated blood platelet mean volume measurement 9.6 [foz_us] 7.4-10.4 Automated blood neutrophils/100 leukocytes 63 % 42-75 Automated blood lymphocytes/100 leukocytes 28 % 12-44 Blood monocytes/100 leukocytes 9 % 0-12 Automated blood eosinophils/100 leukocytes 0 % 0-10 Automated blood basophils/100 leukocytes 0 % 0-10 Blood neutrophils automated count (number/volume) 3.0 10*3 1.8-7.8 Blood lymphocytes automated count (number/volume) 1.3 10*3 1.0-4.0 Blood monocytes automated count (number/volume) 0.4 10*3 0.0-1.0 Automated eosinophil count 0.0 10*3/uL 0.0-0.3 Automated blood basophil count (count/volume) 0.0 10*3/uL 0.0-0.1 Blood lactic acid measurement (moles/volume) - 07/14/18 13:25 Blood lactic acid measurement (moles/volume) 10.08 mmol/L 0.50-2.00 PT panel in platelet poor plasma by coagulation assay - 07/14/18 13:25 Prothrombin time (PT) in platelet poor plasma by coagulation assay 14.3 s 12.2-14.7 INR in platelet poor plasma or blood by coagulation assay 1.1 0.8-1.4 Activated partial thromboplastin time (aPTT) in platelet poor plasma bycoagulation assay - 07/14/18 13:25 Activated partial thromboplastin time (aPTT) in platelet poor plasma bycoagulation assay 32 s 24-35 Comprehensive metabolic panel - 07/14/18 13:25 Serum or plasma sodium measurement (moles/volume) 138 mmol/L 135-145 Serum or plasma potassium measurement (moles/volume) 5.1 mmol/L 3.6-5.0 Serum or plasma chloride measurement (moles/volume) 103 mmol/L 98-107 Carbon dioxide 25 mmol/L 21-32 Serum or plasma anion gap determination (moles/volume) 10 mmol/L 5-14 Serum or plasma urea nitrogen measurement (mass/volume) 27 mg/dL 7-18 Serum or plasma creatinine measurement (mass/volume) 0.96 mg/dL 0.60-1.30 Serum or plasma urea nitrogen/creatinine mass ratio 28 NRG Serum or plasma creatinine measurement with calculation of estimated glomerular filtration rate 55 NRG Serum or plasma glucose measurement (mass/volume) 92 mg/dL 70-105 Serum or plasma calcium measurement (mass/volume) 9.3 mg/dL 8.5-10.1 Serum or plasma total bilirubin measurement (mass/volume) 0.6 mg/dL 0.1-1.0 Serum or plasma alkaline phosphatase measurement (enzymatic activity/volume) 112 U/L 40-136 Serum or plasma aspartate aminotransferase measurement (enzymatic activity/ volume) 36 U/L 5-34 Serum or plasma alanine aminotransferase measurement (enzymatic activity/volume ) 40 U/L 0-55 Serum or plasma protein measurement (mass/volume) 7.6 g/dL 6.4-8.2 Serum or plasma albumin measurement (mass/volume) 4.3 g/dL 3.2-4.5 CALCIUM CORRECTED 9.1 mg/dL 8.5-10.1 Encounters ACCT No. Visit Date/Time Discharge Status Pt. Type Provider Facility Loc./Unit Complaint [id number] 01/25/2018 09:43:00 01/25/2018 23:59:59 CLS Outpatient ELEN LOZANO [facility] CARD CAD,CAROTID ARTERIAL DISEASE,PAD [id number] 09/09/2017 15:16:00 09/09/2017 23:59:59 CLS Preadmit BELTRAN MITCHELL [facility] [id number] 09/02/2017 15:46:00 09/02/2017 23:59:59 CLS Outpatient BELTRAN MITCHELL MD [facility] [id number] 08/28/2017 13:49:00 08/28/2017 23:59:59 CLS Outpatient BELTRAN MITCHELL MD [facility] [id number] 08/21/2017 10:57:00 08/21/2017 23:59:59 CLS Outpatient BELTRAN MITCHELL MD [facility] [id number] 08/12/2017 08:03:00 08/12/2017 23:59:59 CLS Outpatient BELTRAN MITCHELL MD [facility] [id number] 07/29/2017 14:07:00 07/29/2017 23:59:59 CLS Outpatient BELTRAN MITCHELL MD [facility] [id number] 07/22/2017 15:59:00 07/22/2017 23:59:59 CLS Outpatient BELTRAN MITCHELL MD [facility] [id number] 07/20/2017 11:24:00 07/20/2017 23:59:59 CLS Outpatient DAWNA FOOTE MD, FACC, FACP CCDS [facility] LAB I50.22 I65.23 [id number] 07/15/2017 15:11:00 07/15/2017 23:59:59 CLS Outpatient BELTRAN MITCHELL MD [facility] [id number] 07/10/2017 12:22:00 07/11/2017 10:58:00 DIS Outpatient DAWNA FOOTE MD, FACC, FACP CCDS [facility] CATH PAD,LEG DISCOMFORT [id number] 07/08/2017 12:51:00 07/08/2017 23:59:59 CLS Outpatient BELTRAN MITCHELL MD [facility] WOUNDCARE [id number] 07/02/2017 14:08:00 07/02/2017 23:59:59 CLS Outpatient JUAN MCLEOD [employer] STUDIES DIRECTOR [facility] WOUNDCARE [id number] 06/30/2017 10:49:00 06/30/2017 11:50:00 DIS Emergency SIMENTALKELLY APRN [facility] ER WOUND CHECK [id number] 06/28/2017 21:52:00 06/29/2017 00:12:00 DIS Emergency DEMETRIA DELGADO MD [facility] ER LEG INJ [id number] 11/07/2015 13:41:00 11/07/2015 23:59:59 CLS Outpatient QAMAR OLSON FACC, ALI FACP CCDS [facility] LAB CAD, CHF, ISCHEMIC CARDIOMYOPATHY [id number] 10/03/2015 12:15:00 10/03/2015 23:59:59 CLS Outpatient QAMAR OLSON FACC, ALI FACP CCDS [facility] CARD CAD,CHF, ISCHEMIC CARDIOMYOPATHY,HYPERKALEMIA [id number] 09/21/2015 14:10:00 09/21/2015 23:59:59 CLS Outpatient ELEN LOZANO [facility] LAB CAD,CHF,ISCHEMIC CARDIOMYOPAHTY [id number] 05/21/2015 08:29:00 05/21/2015 23:59:59 CLS Outpatient QAMAR OLSON FACC, ALI FACP CCDS [facility] LAB CAD,CHF, ISCHEMIC CARDIOMYOPATHY,LEG SWELLING [id number] 05/15/2015 14:40:00 05/15/2015 23:59:59 CLS Preadmit GLORIA LEE MD [facility] WOUNDCARE [id number] 05/06/2015 20:38:00 05/10/2015 18:47:00 DIS Inpatient QAMAR OLSON FACC, ALI FACP CCDS [facility] ICU ACS/SVT [id number] 07/14/2018 12:51:00 ACT Emergency QUIQUE HUDSON [facility] ER NOSE BLEED;FALL [id number] 05/08/2015 14:29:00 Document Registration [id number] 04/08/2012 18:10:00 Document Registration [id number] 11/22/2010 11:38:00 Document Registration [id number] 05/24/2010 13:57:00 Document Registration [id number] 03/06/2015 11:12:42 03/06/2015 11:12:42 DIS Outpatient [id number] 06/01/2018 16:33:43 06/01/2018 16:33:43 DIS Outpatient [facility] [id number] 05/07/2015 02:47:23 ACT Document Registration
[2018-07-14] MEDS ORDERED: NS IV 1000 ML 1,000 ML IV SCH (14:37)
--- NOTE | 2018-07-14 14:38 | Diagnostic Imaging Report ---
PATIENT HISTORY: Fall. TECHNIQUE: Single frontal view of the chest. COMPARISON: 05/06/2015. FINDINGS: Lung volumes are large. No focal consolidation is seen. There is no pleural effusion or pneumothorax. There is moderate cardiomegaly which appears stable. There is aortic atherosclerosis. Diffuse osteopenia is present. No displaced fractures are seen. Aeration appears improved compared to 2014. IMPRESSION: Large lung volumes and stable cardiomegaly with no acute pulmonary abnormality seen. Dictated by: Dictated on workstation # [id number]
[2018-07-14 14:59] LABS: BILIRUBIN,URINE NEGATIVE (NEGATIVE); CLARITY,URINE CLEAR; COLOR,URINE YELLOW; GLUCOSE, URINE (UA) NEGATIVE (NEGATIVE); KETONES,URINE NEGATIVE (NEGATIVE); LEUKOCYTE ESTERASE ,URINE 1+ (NEGATIVE); NITRITE,URINE NEGATIVE (NEGATIVE); PH,URINE 6 (5-9); PROTEIN,URINE NEGATIVE (NEGATIVE); UROBILINOGEN,URINE NORMAL (NORMAL)
[2018-07-14 15:06] LABS: BACTERIA,URINE NEGATIVE /HPF; RBC,URINE 0-2 /HPF; SQUAMOUS EPITHELIAL CELL,UR RARE /HPF
[2018-07-14 15:19] LABS: ABG BASE EXCESS -1.2 MMOL/L (-2.5-2.5); ABG OXYGEN SATURATION 97 % (94-100); ABG PCO2 38 MMHG (35-45); ABG PO2 80 MMHG (79-93); ABG TCO2 24.3 MMOL/L (21.0-31.0); ALLENS TEST YES-POS; INSPIRED O2 ROOM AIR; PATIENT TEMP 97.2; VENTILATOR NO
--- NOTE | 2018-07-14 15:21 | Diagnostic Imaging Report ---
PATIENT HISTORY: Fall, leg injury. TECHNIQUE: Two views of the right tibia/fibula. COMPARISON: None. FINDINGS: There is diffuse osteopenia. Chondrocalcinosis is present in the knee. No acute fracture is seen. Alignment appears normal. There are mild degenerative changes in the right knee and ankle. There is mild soft tissue edema in the distal right lower leg. IMPRESSION: No acute osseous abnormality seen in the right tibia/fibula. There is mild soft tissue edema in the distal right lower leg. Dictated by: Dictated on workstation # [id number]
[2018-07-14] MEDS ORDERED: RECEIVED CONTRAST (Hold Metformin) IV SCH (15:45)
[2018-07-14] MEDS ORDERED: IOHEXOL 350 MG/ML 100 ML (OMNIPAQUE 350) VIAL IV ONE (15:45)
[2018-07-14] MEDS ORDERED: NS 100 ML (IVPB) BAG IV ONE (15:45)
[2018-07-14 15:51] LABS: AMYLASE 59 U/L (25-125); LIPASE 29 U/L (8-78)
[2018-07-14] MEDS ORDERED: CEFEPIME INJECTION 1,000 MG in NS (IVPB) 50 ML IV SCH (16:30)
--- NOTE | 2018-07-14 16:32 | Diagnostic Imaging Report ---
PROCEDURE: CT abdomen and pelvis with contrast. TECHNIQUE: Multiple contiguous axial images were obtained through the abdomen and pelvis after administration of intravenous contrast. INDICATION: Nosebleed this morning. Generalized pain and weakness after fall 2 days ago. COMPARISON: None FINDINGS: There is pectus excavatum with scarring at the lung bases. The heart is large in size, with particularly the left ventricle and right atrium. No pericardial effusion is seen. The aorta demonstrates calcific atherosclerosis and is tortuous. There is a small infrarenal abdominal aortic aneurysm measuring 2.1 x 2.1 cm on axial imaging, and 1.7 cm craniocaudal. There is an additional infrarenal abdominal aortic aneurysm just proximal to the bifurcation, which measures 2.4 x 2.4 cm on axial imaging, and 2.2 cm craniocaudal. No dissection is seen. 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 The stent appears to be patent. No focal hepatic lesions are seen. The spleen appears normal, with heterogeneous arterial perfusion. The pancreas is mildly atrophic but appears normal. The right adrenal gland is unremarkable. The left adrenal gland is not well seen. The kidneys are externally rotated, but no significant hydronephrosis is seen. The bowel loops are nondistended without evidence of obstruction. There is moderate stool throughout the colon. No free fluid or free air is seen. There is moderate distention of the urinary bladder. Degenerative changes are seen in the lumbar spine with no acute osseous abnormality seen. No arterial extravasation of contrast is seen. There is mild subcutaneous anasarca. IMPRESSION: 1. Multiple small abdominal aortic aneurysms, with no extravasation of contrast seen. 2. Moderate stool throughout the colon, please correlate with history of constipation. 3. Moderate distention of the urinary bladder. 4. Mild subcutaneous anasarca. 5. Pectus excavatum with cardiomegaly, with particular enlargement of the left ventricle and right atrium. Dictated by: Dictated on workstation # [id number]
[2018-07-14] MEDS ORDERED: NS IV ONE (18:15)
[2018-07-14] MEDS: NS IV 1000 ML 1,000 ML IV SCH (18:25)
[2018-07-14] MEDS ORDERED: VANCOMYCIN 1250 MG/NS 250 ML IVPB IV NR ×2 (18:30)
[2018-07-14] MEDS ORDERED: RT-ALBUTEROL SULF 2.5 MG/3 ML PRE-MIX VIAL INH PRN (18:45)
[2018-07-14] MEDS: NOREPINEPHRINE 4 MG in NS (IVPB) 250 ML IV SCH (18:55)
[2018-07-14] MEDS ORDERED: FLU QUADRIvalent (5+ YOA) 2018-2019 (AFLURIA) 0.5 ML IM ONE (19:00)
[2018-07-14] MEDS ORDERED: metroNIDAZOLE 500MG/100ML IVPB 100 ML IV SCH (19:30)
--- NOTE | 2018-07-14 21:51 | History & Physical-Hospitalist ---
History of Present Illness HPI/Chief Complaint CC: Weakness with elevated lactic acidosis HPI: This is an 87yoWF who has no local doctor and considers her PCP to be Dr Myers who presents to the ER w/severe and progressive weakness and was found to have severely elevated lactic acidosis of 12. Pt was assessed for source of this elevation but regardless has received the aggressive IVF management for severe acidosis. Patient cannot really tell me any details at this current time and she appears to be very chronically weakened. Source: RN/MD Exam Limitations: clinical condition Date Seen 07/14/18 Time Seen by a Provider: 15:30 Attending Physician Genet Hardy DO PCP No,Local Physician Referring Physician Date of Admission Jul 14, 2018 at 15:15 Home Medications & Allergies Home Medications Reviewed patient Home Medication Reconciliation performed by pharmacy medication reconciliations photonics engineering technician and/or nursing. Patients Allergies have been reviewed. Allergies Allergies Coded Allergies amoxicillin (Unverified Allergy, Unknown, 07/14/18) Past Jkhqrlp-Wqghsg-Qnhxrd Hx Past Med/Social Hx: Reviewed Nursing Past Med/Soc Hx, Reviewed and Corrections made Patient Social History Marrital Status: single Employed/Student: retired Alcohol Use: Denies Use Recreational Drug Use: No Smoking Status: Unknown if Ever Smoked 2nd Hand Smoke Exposure: No Physical Abuse Screen: No Sexual Abuse: No Recent Foreign Travel: No Contact w/other who traveled: No Recent Hopitalizations: No Recent Infectious Disease Expo: No Immunizations Up To Date Tetanus Booster (TDap): Unknown Seasonal Allergies Seasonal Allergies: No Past Medical History Surgeries: 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 Cardiac: Cardiomyopathy, Heart Attack 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 Gastrointestinal: Chronic Constipation HEENT: Glaucoma Cancer: Skin Skin/Integumentary: Recent Skin Changes History of Blood Disorders: No Adverse Reaction to Blood [place]: No Family History Reviewed Nursing Family Hx Hypertension 19 FATHER No Pertinent Family Hx Review of Systems Constitutional: see HPI, weakness EENTM: no symptoms reported Respiratory: no symptoms reported Cardiovascular: no symptoms reported Gastrointestinal: abdominal pain (LLQ) Musculoskeletal: no symptoms reported Skin: no symptoms reported Psychiatric/Neurological: No Symptoms Reported All Other Systems Reviewed Negative Unless Noted: Yes Physical Exam Physical Exam Vital Signs Vital Signs - First Documented 07/14/18 12:55 Temp 98.1 Pulse 74 Resp 16 B/P (MAP) 183/73 (109) Pulse Ox 96 O2 Delivery Room Air Capillary Refill : Less Than 3 Seconds Height, Weight, BMI Height: 5'5.00" Weight: 106lbs. 9.0oz. 48.632922ua; 17.7 BMI Method:Stated General Appearance: WD/WN, Chronically ill, Cachetic, Mild Distress, Thin Eyes: Bilateral Eye Normal Inspection, Bilateral Eye PERRL HEENT: PERRL/EOMI, TMs Normal, Normal ENT Inspection, Pharynx Normal Neck: Full Range of Motion, Normal Inspection, Non Tender, Supple, Carotid Bruit Respiratory: Chest Non Tender, Lungs Clear, Normal Breath Sounds, No Accessory Muscle Use, No Respiratory Distress Cardiovascular: Regular Rate, Rhythm, No Edema, No Gallop, No JVD, No Murmur, Normal Peripheral Pulses Gastrointestinal: Normal Bowel Sounds, No Organomegaly, No Pulsatile Mass, Tenderness Back: Normal Inspection, No CVA Tenderness, No Vertebral Tenderness Extremity: Normal Capillary Refill, Normal Inspection, Normal Range of Motion, Non Tender, No Calf Tenderness, No Pedal Edema Neurologic/Psychiatric: Alert, No Motor/Sensory Deficits, Normal Mood/Affect, Disoriented Skin: Normal Color, Warm/Dry Lymphatic: No Adenopathy Results Results/Procedures Labs Laboratory Tests 07/14/18 13:25 Patient resulted labs reviewed. Assessment/Plan Admission Diagnosis Assessment: Severe lactic acidosis CAD Cardiomyopathy Plan: IVF Abx Monitor closely but appears to be very chronically ill and cachectic Admission Status: Inpatient Order (span 2 midnights) Reason for Inpatient Admission: Severe lactic acidosis Diagnosis/Problems Diagnosis/Problems (1) Lactic acidosis Status: Acute (2) Weakness Status: Acute (3) Ischemic cardiomyopathy Status: Chronic Clinical Quality Measures DVT/VTE Risk/Contraindication: Risk Factor Score Per Nursin RFS Level Per Nursing on Admit: 4+=Very High GENET HARDY DO Jul 14, 2018 21:51
[2018-07-15] VITALS (15 sets, daily range): BP systolic 126–174; BP diastolic 63–104
[2018-07-15 04:09] LABS: BASOPHILS % (AUTO) 1 % (0-10); EOSINOPHILS % (AUTO) 1 % (0-10); HEMATOCRIT 36 % (35-52); HEMOGLOBIN 11.5 G/DL (11.5-16.0); LYMPHOCYTES # (AUTO) 1.1 X 10^3 (1.0-4.0); LYMPHOCYTES % (AUTO) 26 % (12-44); MEAN CORPUSCULAR HEMOGLOBIN 32 PG (25-34); MEAN CORPUSCULAR HGB CONC 32 G/DL (32-36); MEAN CORPUSCULAR VOLUME 100 FL (80-99); MEAN PLATELET VOLUME 9.6 FL (7.4-10.4); MONOCYTES # (AUTO) 0.5 X 10^3 (0.0-1.0); MONOCYTES % (AUTO) 12 % (0-12); NEUTROPHILS # (AUTO) 2.6 X 10^3 (1.8-7.8); NEUTROPHILS % (AUTO) 61 % (42-75); PLATELET COUNT 197 10^3/uL (130-400); RED CELL DISTRIBUTION WIDTH 14.2 % (10.0-14.5); WHITE BLOOD COUNT 4.3 10^3/uL (4.3-11.0)
[2018-07-15] MEDS: NS IV 1000 ML 1,000 ML IV SCH ×3 (04:29→22:56)
[2018-07-15 04:33] LABS: ALANINE AMINOTRANSFERASE 31 U/L (0-55); ALBUMIN 3.2 GM/DL (3.2-4.5); ALKALINE PHOSPHATASE 88 U/L (40-136); BILIRUBIN,TOTAL 0.8 MG/DL (0.1-1.0); BUN/CREATININE RATIO 28; CALCIUM 8.2 MG/DL (8.5-10.1); CARBON DIOXIDE 18 MMOL/L (21-32); CHLORIDE 112 MMOL/L (98-107); CREATININE SERUM 0.74 MG/DL (0.60-1.30); GFR ESTIMATED > 60; GLUCOSE 83 MG/DL (70-105); MAGNESIUM 1.8 MG/DL (1.8-2.4); PHOSPHORUS 3.6 MG/DL (2.3-4.7); POTASSIUM 4.5 MMOL/L (3.6-5.0); SODIUM 141 MMOL/L (135-145); TOTAL PROTEIN 5.5 GM/DL (6.4-8.2)
[2018-07-15] MEDS: NOREPINEPHRINE 4 MG in NS (IVPB) 250 ML IV SCH (04:49)
--- NOTE | 2018-07-15 05:22 | Pulmonary Consultation ---
DEB GONZALES MED STUDENT 07/15/18 0522: History of Present Illness History of Present Illness Date of Consultation 07/15/18 05:15 Time Seen by Provider: 05:15 Date of Admission History of Present Illness This is an 87 yo female who presented to ED via ambulance for increasing weakness. Patient reports that she fell and hit her head two days ago and intermittent nose bleed since this incident. She is on blood thinners, however CT head and neck was negative for bleed at this time. Her lab work showed elevated lactic acid and she was started on IVF and admitted to ICU. She also has an open wound on her right lower extremity which she notes has increased in redness over the last week, cultures pending. Although labs did not show fever or leukocytosis she was started on vancomycin, cefepime, and metronidazole. Her lactic acid level improved overnight and is now within normal limits. Allergies and Home Medications Allergies Coded Allergies: amoxicillin (Unverified Allergy, Unknown, 07/14/18) Home Medications Acetaminophen 325 Mg Tablet, 650 MG PO Q6H PRN for PAIN-MILD TO MODERATE Prescribed by: DAWNA MYERS on 07/10/171716 Aspirin 81 Mg Tab.chew, 81 MG PO DAILY Prescribed by: DAWNA MYERS on 07/10/171716 Clopidogrel Bisulfate 75 Mg Tablet, 75 MG PO DAILY Prescribed by: DAWNA MYERS on 07/10/171716 Lisinopril 5 Mg Tablet, 5 MG PO DAILY, (Reported) Metoprolol Succinate 25 Mg Tab.er.24h, 25 MG PO DAILY Prescribed by: DAWNA MYERS on 07/10/171716 Past Equzkwr-Lnxagi-Anhvlf Hx Past Med/Social Hx: Reviewed Nursing Past Med/Soc Hx, Reviewed and Corrections made Patient Social History Alcohol Use: Denies Use Recreational Drug Use: No Smoking Status: Unknown if Ever Smoked 2nd Hand Smoke Exposure: No Recent Foreign Travel: No Contact w/Someone Who Travel: No Recent Infectious Disease Expo: No Recent Hopitalizations: No Physical Abuse: No Sexual Abuse: No Immunizations Up To Date Tetanus Booster (TDap): Unknown Seasonal Allergies Seasonal Allergies: No Past Medical History Surgeries: Yes (Cardiac and Peripheral in left leg Stent placement) 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 Respiratory: No Cardiac: Yes ([place] in 86, EF 15-20% 01/2018) Cardiomyopathy, Heart Attack 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 9.0oz. 48.161192ba; 17.7 BMI Method:Stated Exam Exam Vital Signs Date Time Temp Pulse Resp B/P (MAP) Pulse Ox O2 Delivery O2 Flow Rate FiO2 07/15/18 05:00 51 15 140/67 (91) 99 Room Air 07/15/18 04:00 98 Room Air 07/15/18 04:00 97.5 07/15/18 04:00 59 17 139/63 (88) 99 Room Air 07/15/18 03:00 52 19 142/70 (94) 97 Room Air 07/15/18 02:00 45 30 141/64 (89) 97 Room Air 07/15/18 01:00 70 16 126/69 (88) 97 Room Air 07/15/18 01:00 70 07/15/18 00:00 100 Room Air 07/15/18 00:00 98.1 07/15/18 00:00 63 20 129/76 (93) 97 Room Air 07/14/18 23:00 57 16 146/74 (98) 99 Room Air 07/14/18 22:00 66 20 145/74 (97) 99 Room Air 07/14/18 21:00 64 19 149/70 (96) 99 Room Air 07/14/18 20:00 99 Room Air 07/14/18 20:00 97.8 07/14/18 20:00 83 21 163/82 (109) 95 Room Air 07/14/18 19:00 70 07/14/18 19:00 70 10 170/77 (108) 99 Room Air 07/14/18 18:40 70 99 07/14/18 18:40 99 Room Air 07/14/18 18:30 61 20 168/85 (112) 98 Room Air 07/14/18 18:15 63 18 154/108 (123) 99 Room Air 07/14/18 18:00 64 27 159/99 (119) 98 Room Air 07/14/18 18:00 Room Air 07/14/18 17:52 60 07/14/18 17:50 97.7 71 12 99 Room Air 07/14/18 17:20 96.3 61 26 165/85 (111) 95 Room Air 07/14/18 12:55 98.1 74 16 183/73 (109) 96 Room Air I & O 07/15/18 07:00 Intake Total 3552.5 ml Output Total 875 ml Balance 2677.5 ml Height & Weight Height: 5'5.00" Weight: 106lbs. 9.0oz. 48.521872fp; 17.7 BMI Method:Stated General Appearance: No Apparent Distress, WD/WN, Thin HEENT: PERRL/EOMI, TMs Normal, Normal ENT Inspection, Pharynx Normal Neck: Full Range of Motion, Normal Inspection, Non Tender, Supple Respiratory: Chest Non Tender, Lungs Clear, Normal Breath Sounds, No Accessory Muscle Use, No Respiratory Distress Cardiovascular: Regular Rate, Rhythm, No Edema, No Gallop, No JVD, No Murmur, Normal Peripheral Pulses Capillary Refill: Less Than 3 Seconds Extremity: Normal Capillary Refill Neurologic/Psychiatric: Alert, Oriented x3, Normal Mood/Affect Skin: Normal Color, Warm/Dry, Other (ulcerated wound with surrounding erythema to right inner lower leg.) Lymphatic: No Adenopathy Results Lab Laboratory Tests 07/14/18 13:25 07/15/18 03:54 Assessment/Plan Assessment/Plan Elevated Lactic Acid -IVF, improving -within normal limits this am Wound on right lower extremity -cultures pending -started on Abx (vanc, cefepime, metronidazole) CAD -sees Dr. Myers for this LAINE ALY DO 07/15/18 0541: History of Present Illness History of Present Illness Time Seen by Provider: 05:36 History of Present Illness 87yo presented to ED via EMS secondary to progressive weakness. Pt fell and hit her head 2 days prior to ED visit. CT of head and neck is negative for any acute process. Pt was found to have elevated LA of 11 it then went up to 15. Pt denies abdominal pain. No N/V/D. No hematochezia. No leukocytosis or fever. Pt was admitted to ICU for close observation. Allergies and Home Medications Allergies Coded Allergies: amoxicillin (Unverified Allergy, Unknown, 07/14/18) Home Medications Acetaminophen 325 Mg Tablet, 650 MG PO Q6H PRN for PAIN-MILD TO MODERATE Prescribed by: DAWNA MYERS on 07/10/171716 Aspirin 81 Mg Tab.chew, 81 MG PO DAILY Prescribed by: DAWNA MYERS on 07/10/171716 Clopidogrel Bisulfate 75 Mg Tablet, 75 MG PO DAILY Prescribed by: DAWNA MYERS on 07/10/171716 Lisinopril 5 Mg Tablet, 5 MG PO DAILY, (Reported) Metoprolol Succinate 25 Mg Tab.er.24h, 25 MG PO DAILY Prescribed by: DAWNA MYERS on 07/10/171716 Past Odeadvs-Cebyca-Fvjrtk Hx Family Medical History Hypertension 19 FATHER Review of Systems Time Seen by Provider: 05:30 Constitutional: Sweats, Weakness, Malaise; No: Fever, Chills, Other Eyes: No: Pain, Vision change, Conjunctivae inflammation, Eyelid inflammation, Other, Redness ENT: No: Ear pain, Ear discharge, Nose pain, Nose discharge, Nose congestion, Mouth pain, Mouth swelling, Throat pain, Throat swelling, Other Respiratory: No: Cough, Dry, Shortness of breath, SOB with excertion, Wheezing , Hemoptysis, Pleuritic Pain, Sputum, Wheezing, Other Cardiovascular: Lt Headedness; No: Chest Pain, Palpitations, Orthopnea, Paroxysmal Noc. Dyspnea, Edema, Other Gastrointestinal: No: Nausea, Vomiting, Abdominal Pain, Diarrhea, Constipation , Melena, Hematochezia, Other Neurological: Weakness, Incoordination, Confusion Exam Exam General Appearance: No Apparent Distress, WD/WN, Thin HEENT: PERRL/EOMI, TMs Normal, Normal ENT Inspection, Pharynx Normal Neck: Full Range of Motion, Normal Inspection, Non Tender, Supple Respiratory: Chest Non Tender, Lungs Clear, Normal Breath Sounds, No Accessory Muscle Use, No Respiratory Distress Cardiovascular: Regular Rate, Rhythm, No Edema, No Gallop, No JVD, No Murmur, Normal Peripheral Pulses Capillary Refill: Less Than 3 Seconds Extremity: Normal Capillary Refill Neurologic/Psychiatric: Alert, Oriented x3, Normal Mood/Affect Skin: Normal Color, Warm/Dry Lymphatic: No Adenopathy Assessment/Plan Assessment/Plan S/p mechanical fall did not hit head metabolic lactic acidosis -IVF -Monitor Dehydration -IVF Cellulitis RLE and right shoulder -Wound care -Continue vanco, and cefepime CAD with cardiomyopathy with EF 15-20% debility/weakness -PT/PT -SW -may need home siria vs assisted living Transfer to 4th floor with tele. DEB GONZALES MED STUDENT Jul 15, 2018 05:22 LAINE ALY DO Jul 15, 2018 05:41
[2018-07-15] MEDS ORDERED: KCL 20 MEQ TAB (K-DUR) PO SCH (06:00)
[2018-07-15] MEDS ORDERED: POTASSIUM CL 10MEQ/50ML IVPB 50 ML IV SCH (06:00)
[2018-07-15] MEDS ORDERED: MAGNESIUM 1 GM/100 ML IVPB 100 ML IV SCH (06:00)
--- NOTE | 2018-07-15 07:46 | Diagnostic Imaging Report ---
INDICATION: Shortness of breath. Portable chest 3:15 AM FINDINGS: Heart size and pulmonary vascularity are normal. Lungs are clear. There are no effusions or pneumothoraces. IMPRESSION: No acute abnormalities in the chest. Dictated by: Dictated on workstation # [id number]
[2018-07-15] MEDS ORDERED: CLOP75TA69 PO (10:01)
[2018-07-15] MEDS ORDERED: ASPI-983 PO (10:01)
[2018-07-15] MEDS ORDERED: LISI2.5T PO (10:01)
[2018-07-15] MEDS ORDERED: METO-387 PO (10:01)
[2018-07-15] MEDS ORDERED: ASCO500T6 PO (10:01)
--- NOTE | 2018-07-15 11:42 | Progress Note-Hospitalist ---
CADENCE SHARP DO 07/15/18 1141: Subjective HPI/CC On Admission Date Seen by Provider: Jul 15, 2018 Time Seen by Provider: 10:00 CC: Weakness with elevated lactic acidosis HPI: This is an 87yoWF who has no local doctor and considers her PCP to be Dr Myers who presents to the ER w/severe and progressive weakness and was found to have severely elevated lactic acidosis of 12. Pt was assessed for source of this elevation but regardless has received the aggressive IVF management for severe acidosis. Patient cannot really tell me any details at this current time and she appears to be very chronically weakened. Subjective/Events-last exam Patient is about the same alertness Chronic debility noted No pain is reported Wound on back has been there since 2011? Very non-compliant patient who lives alone and son lives down the street Brother lives in [place] and took her to wound care there when she lived with him It appears the patient really has needed a NH placement for a long time Review of Systems General: Fatigue Focused Exam Lactate Level 07/14/18 18:09: Lactic Acid Level 15.32*H 07/14/18 20:16: Lactic Acid Level 1.48 07/15/18 03:54: Lactic Acid Level 1.06 Objective Exam Vital Signs Vital Signs Date Time Temp Pulse Resp B/P (MAP) Pulse Ox O2 Delivery O2 Flow Rate FiO2 07/15/18 19:34 Room Air 07/15/18 19:00 85 07/15/18 15:55 98.0 18 162/74 (103) 97 Capillary Refill : Less Than 3 Seconds General Appearance: No Apparent Distress, WD/WN, Chronically ill, Cachetic Respiratory: Chest Non Tender, Lungs Clear, Normal Breath Sounds, No Accessory Muscle Use, No Respiratory Distress Cardiovascular: Regular Rate, Rhythm, No Edema, No Gallop, No JVD, No Murmur, Normal Peripheral Pulses Neurologic/Psychiatric: Alert, Oriented x3, No Motor/Sensory Deficits, Normal Mood/Affect Results/Procedures Lab Laboratory Tests 07/15/18 03:54 Patient resulted labs reviewed. Assessment/Plan Assessment and Plan Assess & Plan/Chief Complaint Assessment: Lactic acidosis severe Acute on chronic debility Needs NHP ultimately Await Cx IV abx Diagnosis/Problems Diagnosis/Problems (1) Lactic acidosis Status: Resolved Resolution Date/Time: 07/15/18 @ 12:19 (2) Weakness Status: Chronic (3) Ischemic cardiomyopathy Status: Chronic (4) Wound of back Status: Chronic Qualifiers: Encounter type: initial encounter Laterality: right Qualified Codes: S21.201A - Unspecified open wound of right back wall of thorax without penetration into thoracic cavity, initial encounter (5) Cellulitis of leg Status: Chronic Qualifiers: Laterality: unspecified laterality Qualified Codes: L03.119 - Cellulitis of unspecified part of limb Clinical Quality Measures DVT/VTE Risk/Contraindication: Risk Factor Score Per Nursin RFS Level Per Nursing on Admit: 4+=Very High KALEIGH NGUYEN MED STUDENT 07/15/18 1218: Subjective Subjective/Events-last exam Pt lethargic this morning- responds to questions very slowly Lactic acid drastically improved overnight- down to 1.06 Shoulder wound was cultured- pending Denies any pain or bowel/bladder problems Focused Exam Respiratory: Normal Breath Sounds, No Respiratory Distress Cardiovascular: Regular Rate, Rhythm, Other (murmur) Skin: warm/dry, pallor, other (wound on leg and R shoulder) Objective Exam General Appearance: Chronically ill, Cachetic, Thin Respiratory: Chest Non Tender, Normal Breath Sounds, No Accessory Muscle Use Cardiovascular: Regular Rate, Rhythm, Other (murmur) Extremity: Non Tender, No Calf Tenderness, No Pedal Edema Neurologic/Psychiatric: Alert, Oriented x3 Skin: Warm/Dry Assessment/Plan Assessment and Plan Assess & Plan/Chief Complaint Assessment: s/p lactic acidosis Wound infection- culture pending Weakness Chronic debility Plan: Continue IV abx Transfer to 4th floor on tele PT consult Wound care (?) Monitor labs closely Diagnosis/Problems Diagnosis/Problems (1) Lactic acidosis Status: Resolved Resolution Date/Time: 07/15/18 @ 12:19 (2) Wound infection Status: Acute (3) Debility Status: Chronic (4) Weakness Status: Chronic CADENCE SHARP DO Jul 15, 2018 11:41 KALEIGH NGUYEN MED STUDENT Jul 15, 2018 12:18
--- NOTE | 2018-07-15 11:57 | Physical Therapy Evaluation ---
PT Evaluation-General Medical Diagnosis Admission Date Jul 14, 2018 at 15:15 Medical Diagnosis: lactic acidosis Onset Date: Jul 14, 2018 Therapy Diagnosis Therapy Diagnosis: generalized weakness/debility Height/Weight Height (Feet): 5 Height (Inches): 5.00 Weight (Pounds): 110 Weight (Ounces): 5.0 Precautions Precautions/Isolations: Fall Prevention, Standard Precautions, Pressure Ulcer Weight Bear Status Right Lower Extremity: Right Full Weight Bearing Left Lower Extremity: Left Full Weight Bearing Referral Physician: Margaret Reason for Referral: Evaluation/Treatment Medical History Pertinent Medical History: CAD, [place] Current History EMS secondary to fall 2 days prior and hit head. Patient had a nose bleed and is on blood thinners. Reviewed History: Yes Social History Home: Single Level Current Living Status: Alone [facility] Prior Level of Function Therapy Code Descriptions/Definitions Functional [place] Measure: 0=Not Assessed/NA 4=Minimal Assistance 1=Total Assistance 5=Supervision or Setup 2=Maximal Assistance 6=Modified [place] 3=Moderate Assistance 7=Complete [place] Therapy Quality Codes: 6 Independent with activity with or without an assistive device 5 Patient requires set up or clean up by helper. Patient completes activity by themselves 4 Supervision or touching assist (CGA). [place] provide cues , steadying assist 3 The helper provides less than half the effort to complete the activity 2 The helper provides more than half the effort to complete the activity 1 Dependent. The helper does all the effort to complete an activity 7 Patient refused to complete or attempt activity 9 The patient did not perform the activity before the current illness or injury 88 Not attempted due to Medical conditions or safety concerns Functional Abilities and Goals: Independent: Patient completed the activities by him/herself, with or without an assistive device, with no assistance from a helper. Needed Some Help: Patient needed partial assistance from another person to complete activities. Dependent: A helper completed the activities for the patient. Unknown: Not Applicable: Bed Mobility: 6 Transfers (B,C,W/C) (FIM): 6 Gait: 6 Indoor Mobility (Ambulation): Independent Stairs: Independent Prior Devices Use: None Prior Device Use: furniture walks at home PT Evaluation-Current Subjective Patient agrees to PT. No c/o. Pain Numeric Pain Scale: 0-No Pain Location: No Pain Reported Objective Patient Orientation: Normal For Age Problem Solving: Fair Attachments: Angela Catheter, IV ROM/Strength ROM Lower Extremities bilateral LE WFL Strength Lower Extremities 4-/5 grossly bilaterally Integumentary/Posture Integumentary refer to nursing notes Bladder Incontinence: Angela Cath Posture WFL Neuromuscular (Tone, Coordination, Reflexes) grossly intact Sensory Vision: Wears Glasses Hearing: Functional Sensation Right Lower Extremit: Intact Sensation Left Lower Extremity: Intact Transfers Therapy Code Descriptions/Definitions Functional [place] Measure: 0=Not Assessed/NA 4=Minimal Assistance 1=Total Assistance 5=Supervision or Setup 2=Maximal Assistance 6=Modified [place] 3=Moderate Assistance 7=Complete [place] Transfers (B, C, W/C) (FIM): 4 Scootin Rollin Supine to/from Sit: 4 Sit to/from Stand: 4 Gait Mode of Locomotion: Walk Anticipated Mode of Locomotion: Walk Gait (FIM): 4 Distance (FIM): 3=150 ft Distance: 175' Gait Level of Assist: 4 Gait Persons Needed: 1 Gait Assistive Device: FWW Comments/Gait Description slow, shuffle gait sequence (per patient and son, this is patient's PLOF with gait sequence) Balance Sitting Static: Fair Sitting Dynamic: Fair Standing Static: Fair Standing Dynamic: Fair Assessment/Needs 87 y.o. female, will benefit from skilled PT to address functional strength and mobility to improve current LOF and to safely return to home at maximum LOF. Rehab Potential: Fair PT Heel Scourer Goals Heel Scourer Goals PT Senior Living Goals Time Frame: Jul 24, 2018 Transfers (B,C,W/C) (FIM): 6 Gait (FIM): 6 Gait distance (FIM): 3=150 ft Distance: 250' Gait Level of Assist: 6 Gait Assistive Device: FWW PT Plan Problem List Problem List: Activity Tolerance, Safety, Gait Treatment/Plan Treatment Plan: Continue Plan of Care Treatment Plan: Bed Mobility, Education, Functional Activity Arely, Functional Strength, Gait, Safety, Therapeutic Exercise, Transfers Treatment Duration: Jul 24, 2018 Frequency: 6 times per week Estimated Hrs Per Day: .25 hour per day Patient and/or Family Agrees t: Yes Discharge Recommendations Therapy D/C Recommendations: Home Independently Equpiment Recommendations-D/C: Front Wheeled Walker Time/GCodes Time In: 1115 Time Out: 1135 Total Billed Treatment Time: 20 Total Billed Treatment 1 visit EVModC 20 min G Codes Necessary: ROOPA Bautista PT Jul 15, 2018 11:57
--- NOTE | 2018-07-15 14:55 | Occupational Therapy Eval ---
OT Evaluation-General/PLF Medical Diagnosis Admission Date Jul 14, 2018 at 15:15 Medical Diagnosis: lactic acidosis Onset Date: Jul 14, 2018 Therapy Diagnosis Therapy Diagnosis: decr self care, weakness, decr act kiran, decr funct mob Height/Weight Height (Feet): 5 Height (Inches): 5.00 Weight (Pounds): 110 Weight (Ounces): 5.0 Precautions Precautions/Isolations: Fall Prevention, Standard Precautions, Pressure Ulcer Referral Physician: Margaret Referral Reason: Evaluation/Treatment Medical History Pertinent Medical History: CAD, [place] Additional Medical History Wound on R inner lower leg. Cardiomyopathy. Glaucoma. Skin cancer. Chronic constipation. Current History Fell on Thursday, developed nosebleed for several days. Reviewed History: Yes Social History Home: Single Level Current Living Status: Alone ADL-Prior Level of Function Therapy Code Descriptions/Definitions Functional [place] Measure: 0=Not Assessed/NA 4=Minimal Assistance 1=Total Assistance 5=Supervision or Setup 2=Maximal Assistance 6=Modified [place] 3=Moderate Assistance 7=Complete [place] Therapy Quality Codes: 6 Independent with activity with or without an assistive device 5 Patient requires set up or clean up by helper. Patient completes activity by themselves 4 Supervision or touching assist (CGA). [place] provide cues , steadying assist 3 The helper provides less than half the effort to complete the activity 2 The helper provides more than half the effort to complete the activity 1 Dependent. The helper does all the effort to complete an activity 7 Patient refused to complete or attempt activity 9 The patient did not perform the activity before the current illness or injury 88 Not attempted due to Medical conditions or safety concerns Functional Abilities and Goals: Independent: Patient completed the activities by him/herself, with or without an assistive device, with no assistance from a helper. Needed Some Help: Patient needed partial assistance from another person to complete activities. Dependent: A helper completed the activities for the patient. Unknown: Not Applicable: ADL PLOF Comments Pt reported that she has been able to manage her basic self care needs. She also was able to do home care chores but thought some help would be helpful. She manages medications and bills without trouble. She has never driven and has not worked outside the home since she was and raised three sons. Self Care: Independent Functional Cognition: Independent DME/Equipment Comments No DME per pt report OT Current Status Subjective Pt seen in room, up in recliner, finishing lunch. Pain rated 0/10. Appearance Alert, cooperative, soft spoken Mental Status/Objective Patient Orientation: Person, Place, Time, Situation Attachments: Angela Catheter, IV, Telemetry Current Glasses/Contacts: Yes Hand Dominance: Right Upper Extremity ROM grossly WFL bilat Upper Extremity Strength grossly 4/5 bilat ADL-Treatment ADL-Current Pt reported that she was able to eat without difficulty. She has not been up to toilet yet. She walked 175' with FWW, CGA with PT this morning. Therapy Code Descriptions/Definitions Functional [place] Measure: 0=Not Assessed/NA 4=Minimal Assistance 1=Total Assistance 5=Supervision or Setup 2=Maximal Assistance 6=Modified [place] 3=Moderate Assistance 7=Complete [place] Therapy Quality Codes: 6 Independent with activity with or without an assistive device 5 Patient requires set up or clean up by helper. Patient completes activity by themselves 4 Supervision or touching assist (CGA). [place] provide cues , steadying assist 3 The helper provides less than half the effort to complete the activity 2 The helper provides more than half the effort to complete the activity 1 Dependent. The helper does all the effort to complete an activity 7 Patient refused to complete or attempt activity 9 The patient did not perform the activity before the current illness or injury 88 Not attempted due to Medical conditions or safety concerns Education OT Patient Education: Purpose of tx/functional activities, Rehab process Teaching Recipient: Patient Teaching Methods: Discussion Response to Teaching: Verbalize Understanding OT Short Term Goals Short Term Goals Time Frame: Jul 22, 2018 Upper Body Dressing(FIM): 5 Lower Body Dressing(FIM): 5 Toileting(FIM): 5 Toilet/Commode Transfer(FIM): 5 Additional Short Term Goals: 1-Demonstrate ADL Tasks, 2-Verbalize Understanding , 3-ImproveStrength/Arely 1=Demonstrate adherence to instructed precautions during ADL tasks. 2=Patient will verbalize/demonstrate understanding of assistive devices/ modifications for ADL. 3=Patient will improve strength/tolerance for activity to enable patient to perform ADL's. OT Assisted Goals [employer] Goals Time Frame: Jul 29, 2018 Eating (FIM): 6 Grooming(FIM): 6 Bathing(FIM): 6 Upper Body Dressing(FIM): 6 Lower Body Dressing(FIM): 6 Toileting(FIM): 6 Toilet/Commode Transfer(FIM): 6 Shower Transfer(FIM): 6 Additional Goals: 1-Demonstrate ADL Tasks, 2-Verbalize Understanding, 3- ImproveStrength/Arely 1=Demonstrate adherence to instructed precautions during ADL tasks. 2=Patient will verbalize/demonstrate understanding of assistive devices/ modifications for ADL. 3=Patient will improve strength/tolerance for activity to enable patient to perform ADL's. OT Education/Plan Problem List/Assessment Assessment: Decreased Activ Tolerance, Decreased UE Strength, Dependent Transfers, Impaired Self-Care Skills Pt would benefit from skilled OT to increase her independence with basic self care to allow her to safely return home Discharge Recommendations Plan/Recommendations: Continue POC Treatment Plan/Plan of Care Treatment,Training & Education: Yes Patient would benefit from OT for education, treatment and training to promote independence in ADL's, mobility, safety and/or upper extremity function for ADL' s. Plan of Care: ADL Retraining, Functional Mobility, UE Funct Exercise/Act, UE Neuromus Re-Ed/Coord Treatment Duration: Jul 29, 2018 Frequency: 5 times per week Estimated Hrs Per Day: .25 hour per day Agreement: Yes Rehab Potential: Fair Time/GCodes Start Time: 14:06 Stop Time: 14:15 Total Time Billed (hr/min): 9 Billed Treatment Time visit, evaluation moderate intensity, 9 minutes PAULA YORK OT Jul 15, 2018 14:55
[2018-07-15] MEDS ORDERED: CEFEPIME 2 GM/NS 50 ML IVPB IV SCH ×2 (17:00)
[2018-07-16] VITALS: BP 160/75
[2018-07-16 04:00] VITALS: BP 160/74
[2018-07-16 07:58] LABS: BUN/CREATININE RATIO 17; CALCIUM 8.4 MG/DL (8.5-10.1); CARBON DIOXIDE 23 MMOL/L (21-32); CHLORIDE 111 MMOL/L (98-107); CREATININE SERUM 0.81 MG/DL (0.60-1.30); GFR ESTIMATED > 60; GLUCOSE 84 MG/DL (70-105); MAGNESIUM 1.9 MG/DL (1.8-2.4); PHOSPHORUS 3.7 MG/DL (2.3-4.7); POTASSIUM 4.5 MMOL/L (3.6-5.0); SODIUM 142 MMOL/L (135-145)
[2018-07-16 08:21] VITALS: BP 160/74
--- NOTE | 2018-07-16 08:27 | Discharge Summary-Hospitalist ---
Diagnosis/Chief Complaint Date of Admission Jul 14, 2018 at 15:15 Date of Discharge Discharge Date: Jul 16, 2018 Discharge Time: 0700 Admission Diagnosis Assessment: Severe lactic acidosis CAD Cardiomyopathy Plan: IVF Abx Monitor closely but appears to be very chronically ill and cachectic Discharge Diagnosis (1) Lactic acidosis Status: Resolved (2) Weakness Status: Chronic (3) Ischemic cardiomyopathy Status: Chronic (4) Wound of back Status: Chronic (5) Cellulitis of leg Status: Chronic Discharge Summary Discharge Physical Exam Allergies: Coded Allergies: amoxicillin (Unverified Allergy, Unknown, 07/14/18) Vitals & I&Os Vital Signs Date Time Temp Pulse Resp B/P (MAP) Pulse Ox O2 Delivery O2 Flow Rate FiO2 07/16/18 08:21 85 16 160/74 97 Room Air 07/16/18 04:00 97.8 General Appearance: No Apparent Distress, WD/WN, Chronically ill, Cachetic Neurologic/Psychiatric: Alert, Oriented x3, No Motor/Sensory Deficits, Normal Mood/Affect Hospital Course Hospital course: Patient had a brief hospital course she was admitted due to elevated lactic acid of 12 and wound on her back since 2011 so she was placed on empiric antibiotics aggressive IV fluid resolve the elevated lactic acid but she was so weak and underweight she required inpatient rehabilitation transfer to have any chance of returning back home. Labs remained stable through the entire hospital course and tolerating vancomycin and Zosyn for the wound and overall had a poor prognosis overall due to severe debility. Labs (last 24 hrs) Laboratory Tests 07/16/18 07:24: Sodium Level 142, Potassium Level 4.5, Chloride Level 111H, Carbon Dioxide Level 23, Anion Gap 8, Blood Urea Nitrogen 14, Creatinine 0.81, Estimat Glomerular Filtration Rate > 60, BUN/Creatinine Ratio 17, Glucose Level 84, Calcium Level 8.4L, Phosphorus Level 3.7, Magnesium Level 1.9 Microbiology 07/14/18 Blood Culture - Preliminary, Resulted No growth 07/14/18 MRSA Screen - Final, Complete 07/15/18 Gram Stain - Final, Resulted 07/15/18 Wound Culture, Resulted Pending Patient resulted labs reviewed. Pending Labs Laboratory Tests 07/16/18 07:24: Sodium Level 142, Potassium Level 4.5, Chloride Level 111, Carbon Dioxide Level 23, Anion Gap 8, Blood Urea Nitrogen 14, Creatinine 0.81, Estimat Glomerular Filtration Rate > 60, BUN/Creatinine Ratio 17, Glucose Level 84, Calcium Level 8.4, Phosphorus Level 3.7, Magnesium Level 1.9 Discussion & Recommendations Discharge Planning: <30 minutes discharge planning Discharge Home Medications: Active Scripts Active Reported Vitamin C (Ascorbic Acid) 500 Mg Tablet 500 Mg PO DAILY Aspirin EC (Aspirin) 81 Mg Tablet.dr 81 Mg PO DAILY Plavix (Clopidogrel Bisulfate) 75 Mg Tablet 75 Mg PO DAILY Metoprolol Succinate 25 Mg Tab.er.24h 25 Mg PO DAILY Lisinopril 2.5 Mg Tablet 2.5 Mg PO DAILY Instructions to patient/family Please see electronic discharge instructions given to patient. Clinical Quality Measures DVT/VTE Risk/Contraindication: Risk Factor Score Per Nursin RFS Level Per Nursing on Admit: 4+=Very High Problem Qualifiers (1) Wound of back: Encounter type: initial encounter Laterality: right Qualified Codes: S21.201A - Unspecified open wound of right back wall of thorax without penetration into thoracic cavity, initial encounter (2) Cellulitis of leg: Laterality: unspecified laterality Qualified Codes: L03.119 - Cellulitis of unspecified part of limb CADENCE SHARP DO Jul 16, 2018 08:27
[2018-07-16] MEDS ORDERED: VANCOMYCIN 750 MG/NS 250 ML IVPB IV SCH ×2 (18:30)
== END 2018-07-16 08:00 | DRG 641 ==
LOC: ER 12:51 → EDUNIT# 12:51 → ICU 15:15 → 4TH 07-15 14:50
PROVIDERS: ADMIT Internal Medicine; ATTEND Internal Medicine
DX: E87.2 Acidosis (principal); I25.5 Ischemic cardiomyopathy; I25.10 Atherosclerotic heart disease of native coronary artery without angina pectoris; I25.2 Old myocardial infarction; L03.115 Cellulitis of right lower limb; L03.113 Cellulitis of right upper limb; S21.201A Unspecified open wound of right back wall of thorax without penetration into thoracic cavity, initial encounter; Z91.19 Patient's noncompliance with other medical treatment and regimen; I71.4 Abdominal aortic aneurysm, without rupture; Z79.01 Long term (current) use of anticoagulants
CPT/HCPCS: 36415; 51702; 70450; 70486; 71045; 72125; 73590; 74177; 80048; 80053; 81000; 82150; 82805; 83605; 83690; 83735; 84100; 84443; 84484; 85025; 85610; 85730; 87040; 87070; 87077; 87081; 87186; 87205; 93005; 96361; 96374; 99291

== ENCOUNTER 2018-07-16 08:29 | Inpatient (IN) | payer MEDICARE, OTHER ==
[~2018-07-16] VITALS: Ht 165.1 cm; Wt 47.6 kg
[2018-07-16 08:10] VITALS: BP 177/88
[~2018-07-16 08:29] MED LIST changes: +ASCO500T6 PO; +LISI2.5T PO; +METO-387 PO
--- NOTE | 2018-07-16 08:31 | Physical Therapy Evaluation ---
PT Evaluation-General Medical Diagnosis Admission Date 07/16/18 Medical Diagnosis: debility Onset Date: Jul 14, 2018 Therapy Diagnosis Therapy Diagnosis: weakness; abn gait Height/Weight Height (Feet): 5 Height (Inches): 5.00 Weight (Pounds): 110 Weight (Ounces): 5.0 Precautions Precautions/Isolations: Standard Precautions Weight Bear Status Right Lower Extremity: Right Full Weight Bearing Left Lower Extremity: Left Full Weight Bearing Referral Physician: Riley Reason for Referral: Evaluation/Treatment Medical History Pertinent Medical History: CAD, [place] Current History Pt admitted to acute hospital with progressive weakness and found to have elevated lactic acidosis. She has transferred to acute rehab for for continued therapy services to increase strength and functional mobiliity. Reviewed History: Yes Social History Home: Single Level Current Living Status: Alone Entry Into Home: Stairs With Railing PT Steps Into Home: 3 PT Steps Inside Home: 0 Prior/Core FIM Prior Level of Function Therapy Code Descriptions/Definitions Functional [place] Measure: 0=Not Assessed/NA 4=Minimal Assistance 1=Total Assistance 5=Supervision or Setup 2=Maximal Assistance 6=Modified [place] 3=Moderate Assistance 7=Complete [place] Therapy Quality Codes: 6 Independent with activity with or without an assistive device 5 Patient requires set up or clean up by helper. Patient completes activity by themselves 4 Supervision or touching assist (CGA). [place] provide cues , steadying assist 3 The helper provides less than half the effort to complete the activity 2 The helper provides more than half the effort to complete the activity 1 Dependent. The helper does all the effort to complete an activity 7 Patient refused to complete or attempt activity 9 The patient did not perform the activity before the current illness or injury 88 Not attempted due to Medical conditions or safety concerns Functional Abilities and Goals: Independent: Patient completed the activities by him/herself, with or without an assistive device, with no assistance from a helper. Needed Some Help: Patient needed partial assistance from another person to complete activities. Dependent: A helper completed the activities for the patient. Unknown: Not Applicable: Bed Mobility: 7 Transfers (B,C,W/C) (FIM): 7 Gait: 7 (pt did not use an AD at home prior to this admit) Stairs: 7 Indoor Mobility (Ambulation): Independent Prior Devices Use: None Pt lives at home independently but rarely leaves her home. She no longer drives. She reports she was indep with self care prior to this hospital stay. PT Evaluation-Current Subjective Agreeable to PT. Pt reports, "I don't know what to think about all this." Referring to being in the hospital and on ARU. Verbalized understanding of the process after it was explained to her. Pain Numeric Pain Scale: 0-No Pain Location: No Pain Reported Pt/Family Goals Pt's goal is to return home as before. Objective Patient Orientation: Person, Place, Time, Situation Problem Solving: Fair Attachments: IV ROM/Strength ROM Lower Extremities B LE ROM WFL; strength is grossly 4-/5 Strenght Lower Extremities strength is grossly 4-/5 Integumentary/Posture Integumentary Refer to nursing notes Bowel Incontinence: No Bladder Incontinence: No Posture slightly rounded shoulders Neuromuscular (Tone, Coordination, Reflexes) intact and WFL Sensory Vision: Wears Glasses Hearing: Functional Hand Dominance: Right Sensation Right Lower Extremit: Intact Sensation Left Lower Extremity: Intact Transfers Therapy Code Descriptions/Definitions Functional [place] Measure: 0=Not Assessed/NA 4=Minimal Assistance 1=Total Assistance 5=Supervision or Setup 2=Maximal Assistance 6=Modified [place] 3=Moderate Assistance 7=Complete [place] Therapy Quality Codes: 6 Independent with activity with or without an assistive device 5 Patient requires set up or clean up by helper. Patient completes activity by themselves 4 Supervision or touching assist (CGA). [place] provide cues , steadying assist 3 The helper provides less than half the effort to complete the activity 2 The helper provides more than half the effort to complete the activity 1 Dependent. The helper does all the effort to complete an activity 7 Patient refused to complete or attempt activity 9 The patient did not perform the activity before the current illness or injury 88 Not attempted due to Medical conditions or safety concerns Transfers (B, C, W/C) (FIM): 4 Roll Left to Right (QC): 4 Supine to/from Sit: 4 (light asssit to lift her leg) Sit to/from Stand: 4 (min assist to come to a stand with skilled cues for hand placement.) Sit to Lying (QC): 4 Lying to Sitting/Side of Bed(Q: 4 Sit to Stand (QC): 3 Chair/[id number]-Dwydq Xfer(QC): 4 Car Transfer (QC): 3 (assist with both legs) Gait Does the Patient Walk?: Yes Mode of Locomotion: Walk Anticipated Mode of Locomotion: Walk Gait (FIM): 2 Distance (FIM): 0=105-16 ft Walk 10 feet (QC): 4 Walk 50 ft with 2 Turns(QC): 4 Walk 150 ft (QC): 88 Walking 10ft/uneven surface-QC: 4 Distance: 100 ft x 2 Gait Level of Assist: 4 Gait Persons Needed: 1 Gait Assistive Device: FWW Comments/Gait Description slow gait with decreased step length B; needs cues to continue to move foreward. Wheelchair Training Does the Pt Use a Wheelchair?: No Stairs Stairs (FIM): 2 #of Steps: 1 Level of Assist: 4 1 Step (curb) (QC): 3 (assist to step up) 4 Steps (QC): 88 Assistive Device: Walker 12 Steps (QC): 88 Requires assist to step up onto the step; CGA to step down. Balance Sitting Static: Good Sitting Dynamic: Good Standing Static: Fair Standing Dynamic: Fair Picking up an Object (QC): 88 (unsafe to attempt) Treatment GAit training with cues for safety. Education on safety with transfers and on what to expect with ARU. Assessment/Needs Pt presents post acute hospital stay with noted gross functional weakness and decreased functional mobiltiy. She requires assist with all transfers and gait is limited. She will benefit from skilled PT to work on functional mobility and safety to allow her to return home as before. Rehab Potential: Good PT Short Term Goals Short Term Goals Time Frame: Jul 23, 2018 Transfers (B,C,W/C) (FIM): 5 Gait (FIM): 4 PT Fci Goals Informatics Physician Goals PT Informatics Physician Goals Time Frame: Jul 30, 2018 Transfers (B,C,W/C) (FIM): 7 Sit to Lying (QC): 6 Lying-Sitting on Side/Bed(QC): 6 Sit to Stand (QC): 6 Roll Left to Right (QC): 6 Chair/[id number]-Olhqx Xfer(QC): 6 Car Transfer (QC): 6 Does the Patient Walk: Yes Gait (FIM): 6 (with FWW or a cane) Gait distance (FIM): 3=150 ft Walk 10 feet (QC): 6 Walk 10ft-Uneven Surface(QC): 6 Walk 50ft with 2 Turns (QC): 6 Walk 150 ft (QC): 6 Gait Assistive Device: FWW (or cane) Does the Pt use WC or Scooter?: No Stairs (FIM): 5 (household level) # of Steps: 4 1 Step (curb) (QC): 6 4 Steps (QC): 6 12 Steps (QC): 88 Picking up an Object (QC): 4 All goals are for set for pt to be mod indep with mobility at home. PT Plan Problem List Problem List: Activity Tolerance, Functional Strength, Safety, Balance, Gait, Transfer, Bed Mobility Treatment/Plan Treatment Plan: Continue Plan of Care Treatment Plan: Bed Mobility, Education, Functional Activity Arely, Functional Strength, Group Therapy, Gait, Safety, Therapeutic Exercise, Transfers Treatment Duration: Jul 30, 2018 Frequency: At least 5 of 7 days/Wk (IRF) Estimated Hrs Per Day: 1.5 hours per day Patient and/or Family Agrees t: Yes Safety Risks/Education Patient Education: Transfer Techniques, Safety Issues Teaching Recipient: Patient Teaching Methods: Discussion Response to Teaching: Reinforcement Needed Discharge Recommendations Therapy D/C Recommendations: Physical Therapy Home Care Time/GCodes Time In: 750 Time Out: 850 Total Billed Treatment Time: 60 Total Billed Treatment visit EVM 30 FA 30 CLARISSA TALBOT PT Jul 16, 2018 08:31
--- OUTSIDE RECORDS SUMMARY | 2018-07-16 08:35 | XMS REPORT | Continuity of Care Document ---
Author Author [facility] Organization [facility] Address Unknown Phone Unavailable Allergies Active Description Code Type Severity Reaction Onset Reported/Identified Relationship to Patient Clinical Status Yes AMOXICILLIN [id number] Drug Allergy N/A N/A Yes No Known Drug Allergies [id number] Drug Allergy Unknown N/A 05/17/2010 Yes amoxicillin [id number] Drug Allergy Unknown N/A 07/14/2018 Medications Medication Packaging Start Date Stop Date [...] FOOTE MD, FACCP CCDS Ot I25.10 05/10/2015 DAWNA FOOTE MD, FACCP CCDS Ot I25.110 ATHSCL HEART DISEASE OF [place] COR ART W 05/10/2015 DAWNA FOOTE MD, FACC, FACP CCDS Ot 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 05/10/2015 DAWNA FOOTE MD, FACC, FACP CCDS Ot I45.10 UNSPECIFIED RIGHT BUNDLE-BRANCH BLOCK 05/10/2015 QAMAR OLSON FACC, DAWNA LEBLANCP CCDS Ot I47.1 SUPRAVENTRICULAR TACHYCARDIA 05/10/2015 DAWNA FOOTE MD, FACCP CCDS Ot I48.0 PAROXYSMAL ATRIAL FIBRILLATION 05/10/2015 QAMAR LEBLANCC, ALI FACP CCDS Ot I50.22 CHRONIC SYSTOLIC (CONGESTIVE) HEART FAIL 05/10/2015 QAMAR OLSON FACC, ALI FACP CCDS Ot I50.9 05/10/2015 QAMAR LEBLANCC, ALI FACP CCDS Ot I83.022 05/10/2015 QAMAR LEBLANCC, ALI FACP CCDS Ot 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 05/10/2015 QAMAR LEBLANCC, ALI FACP CCDS Ot I87.2 05/10/2015 QAMAR OLSON FACC, ALI FACP CCDS Ot 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 05/10/2015 QAMAR OLSON FACC, ALI FACP CCDS Ot R73.01 IMPAIRED FASTING GLUCOSE 05/10/2015 QAMAR LEBLANCC, ALI FACP CCDS Ot Z82.49 FAMILY HX OF ISCHEM HEART DIS AND OTH DI 05/10/2015 QAMAR OLSON FACC, ALI FACP CCDS Ot Z86.79 PERSONAL HISTORY OF OTHER DISEASES OF TH 05/21/2015 Ot 721.3 05/21/2015 Ot 733.90 05/21/2015 Ot 737.30 06/13/2015 QAMAR LEBLANCC, ALI FACP CCDS Ot I25.10 06/13/2015 QAMAR OLSON FACC, ALI FACP CCDS Ot I25.5 06/13/2015 QAMAR OLSON FACC, ALI FACP CCDS Ot I50.22 06/13/2015 QAMAR OLSON FACC, ALI FACP CCDS Ot M79.89 09/21/2015 Ot 721.3 09/21/2015 Ot 733.90 09/21/2015 Ot 737.30 09/21/2015 QAMAR LEBLANCC, ALI FACP CCDS Ot I25.10 09/21/2015 QAMAR LEBLANCC, ALI FACP CCDS Ot I25.5 09/21/2015 QAMAR LEBLANCC, ALI FACP CCDS Ot I50.22 09/21/2015 QAMAR OLSON FACC, ALI FACP CCDS Ot M79.89 10/17/2015 ELEN LOZANO [employer] ASSEMBLER Ot I25.10 10/17/2015 ELEN LOZANO [employer] ASSEMBLER Ot I25.5 10/17/2015 ELEN LOZANO [employer] ASSEMBLER Ot I50.22 10/25/2015 QAMAR OLSON FAC, ALI FACP CCDS Ot I25.10 10/25/2015 QAMAR [...] CCDS Ot I25.10 ATHSCL HEART DISEASE OF [place] CORONARY 11/30/2015 QAMAR OLSON FACC, ALI FACP CCDS Ot 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, ALI FACP CCDS Ot I50.22 CHRONIC SYSTOLIC (CONGESTIVE) HEART FAIL 11/30/[address] 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 07/02/2017 ELEN LOZANO L [employer] ASSEMBLER Ot I50.22 CHRONIC SYSTOLIC (CONGESTIVE) HEART FAIL 07/02/2017 QAMAR OLSON FACC, ALI FACP CCDS Ot I25.10 ATHSCL HEART DISEASE OF [place] CORONARY 07/02/2017 QAMAR OLSON FACC, ALI FACP CCDS Ot 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 07/02/2017 QAMAR LEBLANCC, ALI FACP CCDS Ot I50.22 CHRONIC SYSTOLIC (CONGESTIVE) HEART FAIL 07/02/2017 QAMAR OLSON FACC, ALI FACP CCDS Ot Z91.14 PATIENT'S OTHER NONCOMPLIANCE WITH MEDIC 07/02/2017 QAMAR OLSON FACC, ALI FACP CCDS Ot I25.10 ATHSCL HEART DISEASE OF [place] CORONARY 07/02/2017 QAMAR OLSON FACC, ALI FACP CCDS Ot 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 07/02/2017 QAMAR LEBLANCC, ALI FACP CCDS Ot I50.22 CHRONIC SYSTOLIC (CONGESTIVE) HEART FAIL 07/02/2017 QAMAR OLSON FACC, ALI FACP CCDS Ot Z91.14 PATIENT'S OTHER NONCOMPLIANCE WITH MEDIC 07/03/2017 QAMAR OLSON FACC, ALI FACP CCDS Ot I25.10 ATHSCL HEART DISEASE OF [place] CORONARY 07/03/2017 QAMAR OLSON FACC, ALI FACP CCDS Ot 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 07/03/2017 QAMAR OLSON FACC, ALI FACP CCDS Ot I50.22 CHRONIC SYSTOLIC (CONGESTIVE) HEART FAIL 07/03/2017 QAMAR OLSON FACC, ALI FACP CCDS Ot M79.89 OTHER SPECIFIED SOFT TISSUE DISORDERS 07/03/2017 ELEN LOZANO L [employer] ASSEMBLER Ot I25.10 ATHSCL HEART DISEASE OF [place] CORONARY 07/03/2017 NICKIELEN WHITT [employer] ASSEMBLER Ot 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 07/03/2017 ELEN LOZANO [employer] ASSEMBLER Ot I50.22 CHRONIC SYSTOLIC (CONGESTIVE) HEART FAIL 07/03/2017 QAMAR OLSON FACC, ALI FACP CCDS Ot I25.10 ATHSCL HEART DISEASE OF [place] CORONARY 07/03/2017 QAMAR OLSON FACC, ALI FACP CCDS Ot 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 07/03/2017 QAMAR OLSON FACC, ALI FACP CCDS Ot I50.22 CHRONIC SYSTOLIC (CONGESTIVE) HEART FAIL 07/03/2017 QAMAR OLSON FACC, ALI FACP CCDS Ot Z91.14 PATIENT'S OTHER NONCOMPLIANCE WITH MEDIC 07/03/2017 QAMAR OLSON FACC, ALI FACP CCDS Ot I25.10 ATHSCL HEART DISEASE OF [place] CORONARY 07/03/2017 QAMAR OLSON FACC, ALI FACP CCDS Ot 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 07/03/2017 QAMAR OLSON FACC, ALI FACP CCDS Ot I50.22 CHRONIC SYSTOLIC (CONGESTIVE) HEART FAIL 07/03/2017 QAMAR OLSON FACC, ALI FACP CCDS Ot Z91.14 PATIENT'S OTHER NONCOMPLIANCE WITH MEDIC 07/03/2017 JUAN MCLEOD DIKE SUPERVISOR Ot L03.116 CELLULITIS OF LEFT LOWER LIMB 07/03/2017 JUAN MCLEOD DIKE SUPERVISOR Ot S81.812D LACERATION WITHOUT FOREIGN BODY, LEFT LO 07/08/2017 JUAN MCLEOD DIKE SUPERVISOR Ot L03.116 CELLULITIS OF LEFT LOWER LIMB 07/08/2017 JUAN MCLEOD DIKE SUPERVISOR Ot S81.812D LACERATION WITHOUT FOREIGN BODY, LEFT LO 07/11/2017 QAMAR OLSON FACC, ALI FACP CCDS Ot I11.0 HYPERTENSIVE HEART DISEASE WITH HEART FA 07/11/2017 QAMAR OLSON FACC, ALI FACP CCDS Ot I25.10 ATHSCL HEART DISEASE OF [place] CORONARY 07/11/2017 QAMAR OLSON FACC, DAWNA FACP CCDS Ot 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 07/11/2017 QAMAR OLSON FACC, DAWNA FACP CCDS Ot I45.10 UNSPECIFIED RIGHT BUNDLE-BRANCH BLOCK 07/11/2017 QAMAR OLSON FACC, DAWNA FACP CCDS Ot I48.0 PAROXYSMAL ATRIAL FIBRILLATION 07/11/2017 DAWNA FOOTE MD, FACCP CCDS Ot I50.22 CHRONIC SYSTOLIC (CONGESTIVE) HEART FAIL 07/11/2017 DAWNA FOOTE MD, FACC FACP CCDS Ot I70.1 ATHEROSCLEROSIS OF RENAL ARTERY 07/11/2017 DAWNA FOOTE MD, FACCP CCDS Ot 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 07/11/2017 DAWNA FOOTE MD, FACC FACP CCDS Ot 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 ULC 07/11/2017 DAWNA FOOTE MD, FACC FACP CCDS Ot I77.811 ABDOMINAL AORTIC ECTASIA 07/11/2017 DAWNA FOOTE MD, FACC FACP CCDS Ot L97.222 NON-PRESSURE CHRONIC ULCER OF LEFT CALF 07/11/2017 DAWNA FOOTE MD, FACCP CCDS Ot R73.01 IMPAIRED FASTING GLUCOSE 07/11/2017 DAWNA FOOTE MD, FACC FACP CCDS Ot Z79.01 SENIOR CARE (CURRENT) USE OF ANTICOAGULANT 07/11/2017 DAWNA FOOTE MD, FACC FACP CCDS Ot Z79.02 SUSTAINABILITY COMMUNICATOR (CURRENT) USE OF ANTITHROMBOTI 07/11/2017 DAWNA FOOTE MD, FACC FACP CCDS Ot Z79.899 OTHER SENIOR CARE (CURRENT) DRUG THERAPY 07/16/2017 DAWNA FOOTE MD, FACC FACP CCDS Ot I11.0 HYPERTENSIVE HEART DISEASE WITH HEART FA 07/16/2017 DAWNA FOOTE MD, FACC FACP CCDS Ot I25.10 ATHSCL HEART DISEASE OF [place] CORONARY 07/16/2017 DAWNA FOOTE MD, FACC FACP [...] MD, FACCP CCDS Ot 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 07/16/2017 DAWNA FOOTE MD, FACC FACP CCDS Ot 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 ULC 07/16/2017 DAWNA FOOTE MD, FACC FACP CCDS Ot I77.811 ABDOMINAL AORTIC ECTASIA 07/16/2017 QAMAR OLSON FACC, DAWNA FACP CCDS Ot L97.222 NON-PRESSURE CHRONIC ULCER OF LEFT CALF 07/16/2017 DAWNA FOOTE MD, FACC FACP CCDS Ot R73.01 IMPAIRED FASTING GLUCOSE 07/16/2017 DAWNA FOOTE MD, FACC FACP CCDS Ot Z79.01 SENIOR CARE (CURRENT) USE OF ANTICOAGULANT 07/16/2017 DAWNA FOOTE MD, FACC FACP CCDS Ot Z79.02 SUSTAINABILITY COMMUNICATOR (CURRENT) USE OF ANTITHROMBOTI 07/16/2017 DAWNA FOOTE MD, FACCP CCDS Ot Z79.899 OTHER SUSTAINABILITY COMMUNICATOR (CURRENT) DRUG THERAPY 07/18/2017 DAWNA FOOTE MD, FACC FACP CCDS Ot I11.0 HYPERTENSIVE HEART DISEASE WITH HEART FA 07/18/2017 DAWNA FOOTE MD, FACC FACP CCDS Ot I25.10 ATHSCL HEART DISEASE OF [place] CORONARY 07/18/2017 DAWNA FOOTE MD, FACC FACP CCDS Ot 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 07/18/2017 DAWNA FOOTE MD, FACC FACP CCDS Ot I45.10 UNSPECIFIED RIGHT BUNDLE-BRANCH BLOCK 07/18/2017 DAWNA FOOTE MD, FACC FACP CCDS Ot I48.0 PAROXYSMAL ATRIAL FIBRILLATION 07/18/2017 DAWNA FOOTE MD, FACC FACP CCDS Ot I50.22 CHRONIC SYSTOLIC (CONGESTIVE) HEART FAIL 07/18/2017 DAWNA FOOTE MD, FACC FACP CCDS Ot I70.1 ATHEROSCLEROSIS OF RENAL ARTERY 07/18/2017 DAWNA FOOTE MD, FACC FACP CCDS Ot 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 07/18/2017 DAWNA FOOTE MD, FACC FACP CCDS Ot 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 [facility] 07/18/2017 DAWNA FOOTE MD, FACC FACP CCDS Ot I77.811 ABDOMINAL AORTIC ECTASIA 07/18/2017 DAWNA FOOTE MD, FACC FACP CCDS Ot L97.222 NON-PRESSURE CHRONIC ULCER OF LEFT CALF 07/18/2017 DAWNA FOOTE MD, FACC FACP CCDS Ot R73.01 IMPAIRED FASTING GLUCOSE 07/18/2017 DAWNA FOOTE MD, FACC FACP CCDS Ot Z79.01 SUSTAINABILITY COMMUNICATOR (CURRENT) USE OF ANTICOAGULANT 07/18/2017 DAWNA FOOTE MD, FACC FACP CCDS Ot Z79.02 SENIOR CARE (CURRENT) USE OF ANTITHROMBOTI 07/18/2017 DAWNA FOOTE MD, FACC FACP CCDS Ot Z79.899 OTHER SUSTAINABILITY COMMUNICATOR (CURRENT) DRUG THERAPY 07/20/2017 DAWNA FOOTE MD, FACC FACP CCDS Ot I11.0 HYPERTENSIVE HEART DISEASE WITH HEART FA 07/20/2017 DAWNA FOOTE MD, FACC FACP CCDS Ot I25.10 ATHSCL HEART DISEASE OF [place] CORONARY 07/20/2017 DAWNA FOOTE MD, FACC FACP CCDS Ot 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 07/20/2017 DAWNA FOOTE MD, FACC FACP CCDS Ot I45.10 UNSPECIFIED RIGHT BUNDLE-BRANCH BLOCK 07/20/2017 DAWNA FOOTE MD, FACC FACP CCDS Ot I48.0 PAROXYSMAL ATRIAL FIBRILLATION 07/20/2017 DAWNA FOOTE MD, FACC FACP CCDS Ot I50.22 CHRONIC SYSTOLIC (CONGESTIVE) HEART FAIL 07/20/2017 DAWNA FOOTE MD, FACC FACP CCDS Ot I70.1 ATHEROSCLEROSIS OF RENAL ARTERY 07/20/2017 DAWNA FOOTE MD, FACC FACP CCDS Ot 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 07/20/2017 DAWNA FOOTE MD, FACC FACP CCDS Ot 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 ULC 07/20/2017 DAWNA FOOTE MD, FACC FACP CCDS Ot I77.811 ABDOMINAL AORTIC ECTASIA 07/20/2017 QAMAR OLSON FACC, ALI FACP CCDS Ot L97.222 NON-PRESSURE CHRONIC ULCER OF LEFT CALF 07/20/2017 DAWNA FOOTE MD, FACC FACP CCDS Ot R73.01 IMPAIRED FASTING GLUCOSE 07/20/2017 DAWNA FOOTE MD, FACC FACP CCDS Ot Z79.01 SENIOR CARE (CURRENT) USE OF ANTICOAGULANT 07/20/2017 DAWNA FOOTE MD, FACC FACP CCDS Ot Z79.02 SENIOR CARE (CURRENT) USE OF ANTITHROMBOTI 07/20/2017 DAWNA FOOTE MD, FACC FACP CCDS Ot Z79.899 OTHER SENIOR CARE (CURRENT) DRUG THERAPY 07/21/2017 DAWNA FOOTE MD, FACC FACP CCDS Ot I11.0 HYPERTENSIVE HEART DISEASE WITH HEART FA 07/21/2017 QAMAR OLSON FACC, ALI FACP CCDS Ot I25.10 ATHSCL HEART DISEASE OF [place] CORONARY 07/21/2017 DAWNA FOOTE MD, FACC FACP CCDS Ot 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 07/21/2017 QAMAR OLSON FACC, DAWNA FACP CCDS Ot I45.10 UNSPECIFIED RIGHT BUNDLE-BRANCH BLOCK 07/21/2017 QAMAR OLSON FACC, DAWNA FACP CCDS Ot I48.0 PAROXYSMAL ATRIAL FIBRILLATION 07/21/2017 QAMAR OLSON FACC, DAWNA FACP CCDS Ot I50.22 CHRONIC SYSTOLIC (CONGESTIVE) HEART FAIL 07/21/2017 DAWNA FOOTE MD, FACC FACP CCDS Ot I70.1 ATHEROSCLEROSIS OF RENAL ARTERY 07/21/2017 QAMAR OLSON FACC, DAWNA FACP CCDS Ot 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 07/21/2017 QAMAR OLSON FACC, DAWNA FACP CCDS Ot 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 ULC 07/21/2017 QAMAR OLSON FACC, DAWNA FACP CCDS Ot I77.811 ABDOMINAL AORTIC ECTASIA 07/21/2017 QAMAR OLSON FACC, DAWNA FACP CCDS Ot L97.222 NON-PRESSURE CHRONIC ULCER OF LEFT CALF 07/21/2017 DAWNA FOOTE MD, FACC FACP CCDS Ot R73.01 IMPAIRED FASTING GLUCOSE 07/21/2017 DAWNA FOOTE MD, FACC FACP CCDS Ot Z79.01 SENIOR CARE (CURRENT) USE OF ANTICOAGULANT 07/21/2017 QAMAR OLSON FACC ALI FACP CCDS Ot Z79.02 SENIOR CARE (CURRENT) USE OF ANTITHROMBOTI 07/21/2017 DAWNA FOOTE MD, FACC FACP CCDS Ot Z79.899 OTHER SUSTAINABILITY COMMUNICATOR (CURRENT) DRUG THERAPY 07/21/2017 DAWNA FOOTE MD, FACC FACP CCDS Ot I11.0 HYPERTENSIVE HEART DISEASE WITH HEART FA 07/21/2017 DAWNA FOOTE MD, FACC FACP CCDS Ot I25.10 ATHSCL HEART DISEASE OF [place] CORONARY 07/21/2017 QAMAR OLSON FACC, DAWNA FACP CCDS Ot 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 07/21/2017 QAMAR OLSON FACC, DAWNA FACP CCDS Ot I45.10 UNSPECIFIED RIGHT BUNDLE-BRANCH BLOCK 07/21/2017 QAMAR OLSON FACC, ALI FACP CCDS Ot I48.0 PAROXYSMAL ATRIAL FIBRILLATION 07/21/2017 QAMAR OLSON FACC, ALI FACP CCDS Ot I50.22 CHRONIC SYSTOLIC (CONGESTIVE) HEART FAIL 07/21/2017 QAMAR OLSON FACC, ALI FACP CCDS Ot I70.1 ATHEROSCLEROSIS OF RENAL ARTERY 07/21/2017 QAMAR OLSON FACC, ALI FACP CCDS Ot 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 07/21/2017 DAWNA FOOTE MD, FACC FACP CCDS Ot 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 ULC 07/21/2017 DAWNA FOOTE MD, FACC FACP CCDS Ot I77.811 ABDOMINAL AORTIC ECTASIA 07/21/2017 DWANA FOOTE MD, FACC FACP CCDS Ot L97.222 NON-PRESSURE CHRONIC ULCER OF LEFT CALF 07/21/2017 DAWNA FOOTE MD, FACC FACP CCDS Ot R73.01 IMPAIRED FASTING GLUCOSE 07/21/2017 DAWNA FOOTE MD, FACC FACP CCDS Ot Z79.01 SENIOR CARE (CURRENT) USE OF ANTICOAGULANT 07/21/2017 DAWNA FOOTE MD, FACC FACP CCDS Ot Z79.02 SUSTAINABILITY COMMUNICATOR (CURRENT) USE OF ANTITHROMBOTI 07/21/2017 DAWNA FOOTE MD, FACC FACP CCDS Ot Z79.899 OTHER SUSTAINABILITY COMMUNICATOR (CURRENT) DRUG THERAPY 07/28/2017 BELTRAN MITCHELL MD Ot 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 ULC 07/28/2017 [...] FOREIGN BODY, LEFT LO 07/29/2017 BELTRAN MITCHELL MD Ot 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 ULC 07/29/2017 BELTRAN MITCHELL MD, Ot 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 07/29/2017 BELTRAN MITCHELL MD, Ot L97.222 NON-PRESSURE CHRONIC ULCER OF LEFT CALF 07/29/2017 BELTRAN MITCHELL MD, Ot S81.812A LACERATION WITHOUT FOREIGN BODY, LEFT LO 08/04/2017 BELTRAN MITCHELL MD, Ot 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 ULC 08/04/2017 BELTRAN MITCHELL MD, Ot 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 08/04/2017 BELTRAN MITCHELL MD, Ot L97.222 NON-PRESSURE CHRONIC ULCER OF LEFT CALF 08/04/2017 BELTRAN MITCHELL MD, Ot S81.812A LACERATION WITHOUT FOREIGN BODY, LEFT LO 08/06/2017 BELTRAN MITCHELL MD Ot 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 08/06/2017 BELTRAN MITCHELL MD, Ot 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 08/06/2017 BELTRAN MITCHELL MD Ot L97.222 NON-PRESSURE CHRONIC ULCER OF LEFT CALF 08/06/2017 BELTRAN MITCHELL MD, Ot S81.812A LACERATION WITHOUT FOREIGN BODY, LEFT LO 08/07/2017 QAMAR OLSON FACC, DAWNA FACP CCDS Ot I11.0 HYPERTENSIVE HEART DISEASE WITH HEART FA 08/07/2017 QAMAR OLSON FACC, ALI FACP CCDS Ot I25.10 ATHSCL HEART DISEASE OF [place] CORONARY 08/07/2017 QAMAR OLSON FACC, DAWNA FACP CCDS Ot 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 08/07/2017 QAMAR OLSON FACC, DAWNA FACP CCDS Ot I45.10 UNSPECIFIED RIGHT BUNDLE-BRANCH BLOCK 08/07/2017 DAWNA FOOTE MD, FACC FACP CCDS Ot I48.0 PAROXYSMAL ATRIAL FIBRILLATION 08/07/2017 DAWNA FOOTE MD, FACC FACP CCDS Ot I50.22 CHRONIC SYSTOLIC (CONGESTIVE) HEART FAIL 08/07/2017 DAWNA FOOTE MD, FACC FACP CCDS Ot I70.1 ATHEROSCLEROSIS OF RENAL ARTERY 08/07/2017 DAWNA FOOTE MD, FACCP CCDS Ot 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 08/07/2017 QAMAR OLSON FACC, DAWNA FACP CCDS Ot 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 08/07/2017 DAWNA FOOTE MD, FACC FACP CCDS Ot I77.811 ABDOMINAL AORTIC ECTASIA 08/07/2017 QAMAR OLSON FACC, DAWNA FACP CCDS Ot L97.222 NON-PRESSURE CHRONIC ULCER OF LEFT CALF 08/07/2017 DAWNA FOOTE MD, FACC FACP CCDS Ot R73.01 IMPAIRED FASTING GLUCOSE 08/07/2017 QAMAR OLSON FACC, DAWNA FACP CCDS Ot Z79.01 SUSTAINABILITY COMMUNICATOR (CURRENT) USE OF ANTICOAGULANT 08/07/2017 DAWNA FOOTE MD, FACC FACP CCDS Ot Z79.02 SENIOR CARE (CURRENT) USE OF ANTITHROMBOTI 08/07/2017 DAWNA FOOTE MD, FACC FACP CCDS Ot Z79.899 OTHER SUSTAINABILITY COMMUNICATOR (CURRENT) DRUG THERAPY 08/14/2017 BELTRAN MITCHELL MD, Ot 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 [facility] 08/14/2017 BELTRAN MITCHELL MD, Ot 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 08/14/2017 BELTRAN MITCHELL MD, Ot L97.222 NON-PRESSURE CHRONIC ULCER OF LEFT CALF 08/18/2017 DAWNA FOOTE MD, FACC FACP CCDS Ot I25.10 ATHSCL HEART DISEASE OF [place] CORONARY 08/18/2017 QAMAR OLSON FACC, DAWNA FACP CCDS Ot I48.0 PAROXYSMAL ATRIAL FIBRILLATION 08/18/2017 QAMAR OLSON FACC, ALI FACP CCDS Ot I50.22 CHRONIC SYSTOLIC (CONGESTIVE) HEART FAIL 08/18/2017 QAMAR OLSON FACC, ALI FACP CCDS Ot 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 08/18/2017 DAWNA FOOTE MD, FACC FACP CCDS Ot I70.213 ATHSCL [place] ARTERIES OF EXTRM W INTRMT 08/18/2017 BELTRAN MITCHELL MD, Ot 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 [facility] 08/18/2017 BELTRAN MITCHELL MD, Ot 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 08/18/2017 BELTRAN MITCHELL MD, Ot L97.222 NON-PRESSURE CHRONIC ULCER OF LEFT CALF 08/18/2017 BELTRAN MITCHELL MD, Ot S81.812A LACERATION WITHOUT FOREIGN BODY, LEFT LO 08/21/2017 BELTRAN MITCHELL MD Ot 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 [facility] 08/21/2017 BELTRAN MITCHELL MD Ot 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 08/21/2017 BELTRAN MITCHELL MD Ot L97.222 NON-PRESSURE CHRONIC ULCER OF LEFT CALF 08/21/2017 BELTRAN MITCHELL MD, Ot S81.812A LACERATION WITHOUT FOREIGN BODY, LEFT LO 08/24/2017 BELTRAN MITCHELL MD, Ot 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 [facility] 08/24/2017 BELTRAN MITCHELL MD, Ot 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 08/24/2017 BELTRAN MITCHELL MD, Ot L97.222 NON-PRESSURE CHRONIC ULCER OF LEFT CALF 08/31/2017 BELTRAN MITCHELL MD Ot 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 [facility] 08/31/2017 BELTRAN MITCHELL MD Ot 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 08/31/2017 BELTRAN MITCHELL MD Ot L97.222 NON-PRESSURE CHRONIC ULCER OF LEFT CALF 09/09/2017 BELTRAN MITCHELL MD Ot 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 [facility] 09/09/2017 BELTRAN MITCHELL MD Ot 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 09/09/2017 BELTRAN MITCHELL MD Ot L97.222 NON-PRESSURE CHRONIC ULCER OF LEFT CALF 09/14/2017 BELTRAN MITCHELL MD Ot 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 09/14/2017 BELTRAN MITCHELL MD Ot 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 09/14/2017 BELTRAN MITCHELL MD Ot L97.222 NON-PRESSURE CHRONIC ULCER OF LEFT CALF 09/18/2017 BELTRAN MITCHELL MD Ot 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 [facility] 09/18/2017 BELTRAN MITCHELL MD Ot 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 09/18/2017 BELTRAN MITCHELL MD Ot L97.222 NON-PRESSURE CHRONIC ULCER OF LEFT CALF 09/24/2017 BELTRAN MITCHELL MD Ot 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 [facility] 09/24/2017 BELTRAN MITCHELL MD Ot 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 09/24/2017 BELTRAN MITCHELL MD Ot L97.222 NON-PRESSURE CHRONIC ULCER OF LEFT CALF 09/28/2017 BELTRAN MITCHELL MD Ot 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 [facility] 09/28/2017 BELTRAN MITCHELL MD Ot 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 09/28/2017 BELTRAN MITCHELL MD, Ot L97.222 NON-PRESSURE CHRONIC ULCER OF LEFT CALF 09/28/2017 BELTRAN MITCHELL MD Ot 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 [facility] 09/28/2017 BELTRAN MITCHELL MD Ot 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 09/28/2017 BELTRAN MITCHELL MD Ot L97.222 NON-PRESSURE CHRONIC ULCER OF LEFT CALF 2017 BELTRAN MITCHELL MD Ot 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 [facility] 2017 BELTRAN MITCHELL MD Ot 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 2017 BELTRAN MITCHELL MD Ot L97.222 NON-PRESSURE CHRONIC ULCER OF LEFT CALF 2017 BELTRAN MITCHELL MD Ot 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 [facility] 2017 BELTRAN MITCHELL MD Ot 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 2017 BELTRAN MITCHELL MD Ot L97.222 NON-PRESSURE CHRONIC ULCER OF LEFT CALF 12/02/2017 BELTRAN MITCHELL MD Ot 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 [facility] 12/02/2017 BELTRAN MITCHELL MD Ot 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 12/02/2017 BELTRAN MITCHELL MD Ot L97.222 NON-PRESSURE CHRONIC ULCER OF LEFT CALF 01/27/2018 ELEN LOZANO Ot I08.1 RHEUMATIC DISORDERS OF BOTH MITRAL AND T 01/27/2018 ELEN LOZANO L [employer] Ot I25.10 ATHSCL HEART DISEASE OF [place] CORONARY 01/27/2018 BAIMA, ELEN L [employer] Ot I48.0 PAROXYSMAL ATRIAL FIBRILLATION 01/27/2018 BAIMA, ELEN L [employer] Ot I50.22 CHRONIC SYSTOLIC (CONGESTIVE) HEART FAIL 01/27/2018 BAIMA, ELEN L [employer] Ot I73.9 PERIPHERAL VASCULAR DISEASE, UNSPECIFIED 01/27/2018 BAIMA, ELEN L [employer] Ot Z91.14 PATIENT'S OTHER NONCOMPLIANCE WITH MEDIC 02/24/2018 BAIMA ELEN L [employer] Ot I08.1 RHEUMATIC DISORDERS OF BOTH MITRAL AND T 02/24/2018 BAIMA ELEN L [employer] Ot I25.10 ATHSCL HEART DISEASE OF [place] CORONARY 02/24/2018 BAIMA EELN L [employer] Ot I48.0 PAROXYSMAL ATRIAL FIBRILLATION 02/24/2018 BAIMA, ELEN L [employer] Ot I50.22 CHRONIC SYSTOLIC (CONGESTIVE) HEART FAIL 02/24/2018 NICKIMA ELEN L [employer] Ot I73.9 PERIPHERAL VASCULAR DISEASE, UNSPECIFIED 02/24/2018 BAIMA, ELEN L [employer] Ot Z91.14 PATIENT'S OTHER NONCOMPLIANCE WITH MEDIC 07/15/2018 LILA DO, CADENCE Ot E87.2 ACIDOSIS 07/15/2018 LILA DO CADENCE Ot I25.10 ATHSCL HEART DISEASE OF [place] CORONARY 07/15/2018 SHARP DO, CADENCE Ot I25.2 OLD MYOCARDIAL INFARCTION 07/15/2018 SHARP DO CADENCE Ot 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 07/15/2018 LILA DO CADENCE Ot E87.2 ACIDOSIS 07/15/2018 SHARP DO, CADENCE Ot I25.10 ATHSCL HEART DISEASE OF [place] CORONARY 07/15/2018 SHARP DO, CADENCE Ot I25.2 OLD MYOCARDIAL INFARCTION 07/15/2018 SHARP DO, CADENCE Ot 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 07/16/2018 SHARP DO CADENCE Ot E87.2 ACIDOSIS 07/16/2018 SHARP DO CADENCE Ot I25.10 ATHSCL HEART DISEASE OF [place] CORONARY 07/16/2018 SHARP DO CADENCE Ot I25.2 OLD MYOCARDIAL INFARCTION 07/16/2018 LILA COOPER CADENCE Ot 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 Procedures Code Description Performed By Performed On [id number] DILATION OF 1 COR ART WITH DRUG-ELUT INT 05/08/2015 [id number] MEASURE OF CARDIAC SAMPL PRESSURE, L H 05/08/2015 [id number] FLUOROSCOPY OF MULTIPLE CORONARY ARTERIE 05/08/2015 [id number] FLUOROSCOPY OF LEFT HEART USING LOW OSMO [...] culture NOANA NRG Gram stain microscopy - 07/29/17 14:41 GRAM STAIN RESULT FEW GRAM POSITIVE COCCI NR Bacteria identification in wound by culture - 07/29/17 14:41 Bacteria identification in wound by culture [id number] NR FREE TEXT EXTERNAL SENSITIVITY REPORTED AT [...] 12:01 Bacteria identification in wound by culture [id number] NR FREE TEXT EXTERNAL SLOW GROWTH NRG QUANTITY OF GROWTH Scant Growth NRG FREE TEXT ENTRY 2 SEE COMMENT FOR REPORT FROM REF.[facility] Bacterial susceptibility panel - 08/21/17 12:01 Oxacillin [...] g/dL 3.2-4.5 CALCIUM CORRECTED 9.1 mg/dL 8.5-10.1 Serum or plasma thyrotropin measurement by detection limit <=0.05 miu/l (units/ volume) - 07/14/18 13:25 Serum or plasma thyrotropin measurement by detection limit <=0.05 miu/l (units/ volume) 4.34 u[iU]/mL 0.35-4.94 Serum or plasma troponin i.cardiac measurement (mass/volume) - 07/14/18 13:25 Serum or plasma troponin i.cardiac measurement (mass/volume) < ng/ mL <0.30 Serum or plasma amylase measurement (enzymatic activity/volume) - 07/14/18 13: 25 Serum or plasma amylase measurement (enzymatic activity/volume) 59 U /L 25-125 Lipase - 07/14/18 13:25 Lipase 29 U/L 8-78 Bacterial blood culture - 07/14/18 13:25 Bacterial blood culture [facility] Gram stain microscopy - 07/14/18 14:05 Gram stain microscopy No bacteria seen NR Bacteria identification in wound by culture - 07/14/18 14:05 Bacteria identification in wound by culture [facility] Blood lactic acid measurement (moles/volume) - 07/14/18 14:15 Blood lactic acid measurement (moles/volume) 12.34 mmol/L 0.50-2.00 Bacterial blood culture - 07/14/18 14:15 Bacterial blood culture [facility] Complete urinalysis with reflex to culture - 07/14/18 14:40 Urine color determination YELLOW NRG Urine clarity determination CLEAR NR Urine pH measurement by test strip 6 5-9 Specific gravity of urine by test strip 1.010 1.016- 1.022 Urine protein assay by test strip, semi-quantitative NEGATIVE NEGATIVE Urine glucose detection by automated test strip NEGATIVE NEGATIVE Erythrocytes detection in urine sediment by light microscopy 1+ NEGATIVE Urine ketones detection by automated test strip NEGATIVE NEGATIVE Urine nitrite detection by test strip NEGATIVE NEGATIVE Urine total bilirubin detection by test strip NEGATIVE NEGATIVE Urine urobilinogen measurement by automated test strip (mass/volume) NORMAL NORMAL Urine leukocyte esterase detection by dipstick 1+ NEGATIVE Automated urine sediment erythrocyte count by microscopy (number/high power field) [HPF] NRG Automated urine sediment leukocyte count by microscopy (number/high power field ) NONE NRG Bacteria detection in urine sediment by light microscopy NEGATIVE NRG Squamous epithelial cells detection in urine sediment by light microscopy RARE NRG Crystals detection in urine sediment by light microscopy NONE NRG Casts detection in urine sediment by light microscopy NONE NRG Mucus detection in urine sediment by light microscopy NEGATIVE NRG Complete urinalysis with reflex to culture NO NRG Renal epithelial cells detection in urine sediment by light microscopy NONE NRG Arterial blood gas measurement - 07/14/18 15:10 Blood pCO2 38 mm[Hg] 35-45 Blood pO2 80 mm[Hg] 79-93 Arterial blood bicarbonate measurement (moles/volume) 23 mmol/L 23-27 Arterial blood base excess by calculation -1.2 mmol/L - 2.5-2.5 Arterial blood oxygen saturation measurement 97 % 94-100 * Inhaled oxygen flow rate ROOM AIR NRG Arterial blood pH measurement with patient temperature correction 7.40 7.37-7.43 Arterial blood carbon dioxide, total measurement (moles/volume) 24.3 mmol/L 21.0-31.0 Body site RT RAD NRG Assessment of wrist artery patency prior to arterial puncture YES- POS NRG Setting of ventilation mode NO NRG Measurement of body temperature 97.2 NRG Serum or plasma lactate measurement (moles/volume) - 07/14/18 15:25 Serum or plasma lactate measurement (moles/volume) 11.30 mmol/L 0.50-2.00 Blood lactic acid measurement (moles/volume) - 07/14/18 18:09 Blood lactic acid measurement (moles/volume) 15.32 mmol/L 0.50-2.00 Serum or plasma lactate measurement (moles/volume) - 07/14/18 20:16 Serum or plasma lactate measurement (moles/volume) 1.48 mmol/L 0.50-2.00 Complete blood count (CBC) with automated white blood cell (WBC) differential - 07/15/18 03:54 Blood leukocytes automated count (number/volume) 4.3 10*3/uL 4.3-11.0 Blood erythrocytes automated count (number/volume) 3.60 10*6/uL 4.35-5.85 Venous blood hemoglobin measurement (mass/volume) 11.5 g/dL 11.5-16.0 Blood hematocrit (volume fraction) 36 % 35-52 Automated erythrocyte mean corpuscular volume 100 [foz_us] 80-99 Automated erythrocyte mean corpuscular hemoglobin (mass per erythrocyte) 32 pg 25-34 Automated erythrocyte mean corpuscular hemoglobin concentration measurement ( mass/volume) 32 g/dL 32-36 Automated erythrocyte distribution width ratio 14.2 % 10.0-14.5 Automated blood platelet count (count/volume) 197 10*3/uL 130-400 Automated blood platelet mean volume measurement 9.6 [foz_us] 7.4-10.4 Automated blood neutrophils/100 leukocytes 61 % 42-75 Automated blood lymphocytes/100 leukocytes 26 % 12-44 Blood monocytes/100 leukocytes 12 % 0-12 Automated blood eosinophils/100 leukocytes 1 % 0-10 Automated blood basophils/100 leukocytes 1 % 0-10 Blood neutrophils automated count (number/volume) 2.6 10*3 1.8-7.8 Blood lymphocytes automated count (number/volume) 1.1 10*3 1.0-4.0 Blood monocytes automated count (number/volume) 0.5 10*3 0.0-1.0 Automated eosinophil count 0.0 10*3/uL 0.0-0.3 Automated blood basophil count (count/volume) 0.0 10*3/uL 0.0-0.1 Blood lactic acid measurement (moles/volume) - 07/15/18 03:54 Blood lactic acid measurement (moles/volume) 1.06 mmol/L 0.50-2.00 Comprehensive metabolic panel - 07/15/18 03:54 Serum or plasma sodium measurement (moles/volume) 141 mmol/L 135-145 Serum or plasma potassium measurement (moles/volume) 4.5 mmol/L 3.6-5.0 Serum or plasma chloride measurement (moles/volume) 112 mmol/L 98-107 Carbon dioxide 18 mmol/L 21-32 Serum or plasma anion gap determination (moles/volume) 11 mmol/L 5-14 Serum or plasma urea nitrogen measurement (mass/volume) 21 mg/dL 7-18 Serum or plasma creatinine measurement (mass/volume) 0.74 mg/dL 0.60-1.30 Serum or plasma urea nitrogen/creatinine mass ratio 28 NRG Serum or plasma creatinine measurement with calculation of estimated glomerular filtration rate > NRG Serum or plasma glucose measurement (mass/volume) 83 mg/dL 70-105 Serum or plasma calcium measurement (mass/volume) 8.2 mg/dL 8.5-10.1 Serum or plasma total bilirubin measurement (mass/volume) 0.8 mg/dL 0.1-1.0 Serum or plasma alkaline phosphatase measurement (enzymatic activity/volume) 88 U/L 40-136 Serum or plasma aspartate aminotransferase measurement (enzymatic activity/ volume) 27 U/L 5-34 Serum or plasma alanine aminotransferase measurement (enzymatic activity/volume ) 31 U/L 0-55 Serum or plasma protein measurement (mass/volume) 5.5 g/dL 6.4-8.2 Serum or plasma albumin measurement (mass/volume) 3.2 g/dL 3.2-4.5 CALCIUM CORRECTED 8.8 mg/dL 8.5-10.1 Serum or plasma phosphate measurement (mass/volume) - 07/15/18 03:54 Serum or plasma phosphate measurement (mass/volume) 3.6 mg/dL 2.3-4.7 Magnesium - 07/15/18 03:54 Magnesium 1.8 mg/dL 1.8-2.4 Whole blood basic metabolic panel - 07/16/18 07:24 Serum or plasma sodium measurement (moles/volume) 142 mmol/L 135-145 Serum or plasma potassium measurement (moles/volume) 4.5 mmol/L 3.6-5.0 Serum or plasma chloride measurement (moles/volume) 111 mmol/L 98-107 Carbon dioxide 23 mmol/L -32 Serum or plasma anion gap determination (moles/volume) 8 mmol/L 5-14 Serum or plasma urea nitrogen measurement (mass/volume) 14 mg/dL 7-18 Serum or plasma creatinine measurement (mass/volume) 0.81 mg/dL 0.60-1.30 Serum or plasma urea nitrogen/creatinine mass ratio 17 NRG Serum or plasma creatinine measurement with calculation of estimated glomerular filtration rate > NRG Serum or plasma glucose measurement (mass/volume) 84 mg/dL 70-105 Serum or plasma calcium measurement (mass/volume) 8.4 mg/dL 8.5-10.1 Serum or plasma phosphate measurement (mass/volume) - 07/16/18 07:24 Serum or plasma phosphate measurement (mass/volume) 3.7 mg/dL 2.3-4.7 Magnesium - 07/16/18 07:24 Magnesium 1.9 mg/dL 1.8-2.4 Encounters ACCT No. Visit Date/Time Discharge Status Pt. Type Provider Facility Loc./Unit Complaint [id number] 07/14/2018 15:15:00 07/16/2018 08:00:00 DIS Inpatient LILA COOPER CADENCE [facility] 4TH LACTIC ACIDOSIS,WEAKNESS [id number] 01/25/2018 09:43:00 01/25/2018 23:59:59 CLS Outpatient ELEN LOZANO [facility] CARD CAD,CAROTID ARTERIAL DISEASE,PAD [id number] 09/09/2017 15:16:00 09/09/2017 23:59:59 CLS Preadmit BELTRAN MITCHELL MD [id number] 09/02/2017 15:46:00 09/02/2017 23:59:59 CLS Outpatient BELTRAN MITCHELL MD [facility] [id number] 08/28/2017 13:49:00 08/28/2017 23:59:59 CLS Outpatient BELTRAN MITCHELL MD [facility] WOUNDCARE [id number] 08/21/2017 10:57:00 08/21/2017 23:59:59 CLS Outpatient BELTRAN MITCHELL MD [facility] [id number] 08/12/2017 08:03:00 08/12/2017 23:59:59 CLS Outpatient BELTRAN MITCHELL MD [facility] [id number] 07/29/2017 14:07:00 07/29/2017 23:59:59 CLS Outpatient BELTRAN MITCHELL MD [facility] WOUNDCARE [id number] 07/22/2017 15:59:00 07/22/2017 23:59:59 CLS Outpatient BELTRAN MITCHELL MD [facility] WOUNDCARE [id number] 07/20/2017 11:24:00 07/20/2017 23:59:59 CLS Outpatient QAMAR OLSON FACC, DAWNA FACP CCDS [facility] LAB I50.22 I65.23 [id number] 07/15/2017 15:11:00 07/15/2017 23:59:59 CLS Outpatient BELTRAN MITCHELL MD [facility] WOUNDCARE [id number] 07/10/2017 12:22:00 07/11/2017 10:58:00 DIS Outpatient DAWNA FOOTE MD, FACC, FACP CCDS [facility] CATH PAD,LEG DISCOMFORT [id number] 07/08/2017 12:51:00 07/08/2017 23:59:59 CLS Outpatient BELTRAN MITCHELL MD [facility] WOUNDCARE [id number] 07/02/2017 14:08:00 07/02/2017 23:59:59 CLS Outpatient JUAN MCLEOD DIKE SUPERVISOR [facility] WOUNDCARE [id number] 06/30/2017 10:49:00 06/30/2017 11:50:00 DIS Emergency KELLY SIMENTAL APRN [facility] ER WOUND CHECK [id number] 06/28/2017 21:52:00 06/29/2017 00:12:00 DIS Emergency DEMETRIA DELGADO MD [facility] ER LEG INJ [id number] 11/07/2015 13:41:00 11/07/2015 23:59:59 CLS Outpatient DAWNA FOOTE MD, FACC, FACP CCDS [facility] LAB CAD, CHF, ISCHEMIC CARDIOMYOPATHY [id number] 10/03/2015 12:15:00 10/03/2015 23:59:59 CLS Outpatient DAWNA FOOTE MD, FACCP CCDS [facility] CARD CAD,CHF, ISCHEMIC CARDIOMYOPATHY,HYPERKALEMIA [id number] 09/21/2015 14:10:00 09/21/2015 23:59:59 CLS Outpatient ELEN LOZANO [facility] LAB CAD,CHF,ISCHEMIC CARDIOMYOPAHTY [id number] 05/21/2015 08:29:00 05/21/2015 23:59:59 CLS Outpatient QAMAR OLSON FACAngela, DAWNA GUILLEN CCDS [facility] LAB CAD,CHF, ISCHEMIC CARDIOMYOPATHY,LEG SWELLING [id number] 05/15/2015 14:40:00 05/15/2015 23:59:59 CLS Preadmit GLORIA LEE MD [facility] WOUNDCARE [id number] 05/06/2015 20:38:00 05/10/2015 18:47:00 DIS Inpatient QAMAR OLSON FACAngela, DAWNA GUILLEN CCDS [facility] ICU ACS/SVT [id number] 07/16/2018 08:29:00 ACT Inpatient BETH GOOD MD [facility] IRF PROGRESSIVE WEAKNESS, DEBILITY [id number] 05/08/2015 14:29:00 Document Registration [id number] 04/08/2012 18:10:00 Document Registration [id number] 11/22/2010 11:38:00 Document Registration [id number] 05/24/2010 13:57:00 Document Registration [id number] 03/06/2015 11:12:42 03/06/2015 11:12:42 DIS Outpatient [id number] 06/01/2018 16:33:43 06/01/2018 16:33:43 DIS Outpatient [id number] 05/07/2015 02:47:23 ACT Document Registration
[2018-07-16] MEDS ORDERED: RT-ALBUTEROL SULF 2.5 MG/3 ML PRE-MIX VIAL INH PRN (09:00)
[2018-07-16] MEDS ORDERED: VANCOMYCIN INJECTION 750 MG in NS (IVPB) 250 ML IV SCH (09:00)
[2018-07-16] MEDS ORDERED: FLU QUADRIvalent (5+ YOA) 2018-2019 (AFLURIA) 0.5 ML IM ONE (09:00)
[2018-07-16] MEDS ORDERED: RECEIVED CONTRAST (Hold Metformin) IV SCH (09:00)
[2018-07-16] MEDS ORDERED: CEFEPIME INJECTION 2,000 MG in NS (IVPB) 50 ML IV SCH (09:00)
[2018-07-16] MEDS: NS IV 1000 ML 1,000 ML IV SCH (09:29)
[2018-07-16] MEDS ORDERED: CATHETER FLUSH 10 ML SYR IV PRN (09:30)
[2018-07-16] MEDS: ASCORBIC ACID (VIT C) 500 MG TABLET PO SCH (09:40)
[2018-07-16] MEDS: lisINopril 5 MG (PRINIVIL) TABLET PO SCH (09:40)
[2018-07-16] MEDS: ASPIRIN E.C. 81 MG (ECOTRIN) TAB PO SCH (09:40)
[2018-07-16] MEDS: CLOPIDOGREL 75 MG (PLAVIX) TABLET PO SCH (09:40)
[2018-07-16 11:00] VITALS: BP 159/76
--- NOTE | 2018-07-16 11:39 | Occupational Therapy Eval ---
OT Evaluation-General/PLF Medical Diagnosis Admission Date Jul 16, 2018 at 08:29 Medical Diagnosis: debility Onset Date: Jul 14, 2018 Therapy Diagnosis Therapy Diagnosis: decr self care, weakness, decr act kiran, decr funct mob Height/Weight Height (Feet): 5 Height (Inches): 5.00 Weight (Pounds): 105 Weight (Ounces): 0.0 Precautions Precautions/Isolations: Fall Prevention, Standard Precautions Referral Physician: Riley Referral Reason: Evaluation/Treatment Medical History Pertinent Medical History: CAD, [place] Additional Medical History Wound on R inner lower leg. Cardiomyopathy. Glaucoma. Skin cancer. Chronic constipation Current History Fell at home on Thursday, developed nosebleed and admitted to acute care on . Reviewed History: Yes Social History Home: Single Level Current Living Status: Alone Entry Into Home: Stairs With Railing Steps Into Home: 3 Steps Inside Home: 0 ADL-Prior Level of Function Therapy Code Descriptions/Definitions Functional [place] Measure: 0=Not Assessed/NA 4=Minimal Assistance 1=Total Assistance 5=Supervision or Setup 2=Maximal Assistance 6=Modified [place] 3=Moderate Assistance 7=Complete [place] Therapy Quality Codes: 6 Independent with activity with or without an assistive device 5 Patient requires set up or clean up by helper. Patient completes activity by themselves 4 Supervision or touching assist (CGA). Kathryn provide cues , steadying assist 3 The helper provides less than half the effort to complete the activity 2 The helper provides more than half the effort to complete the activity 1 Dependent. The helper does all the effort to complete an activity 7 Patient refused to complete or attempt activity 9 The patient did not perform the activity before the current illness or injury 88 Not attempted due to Medical conditions or safety concerns Functional Abilities and Goals: Independent: Patient completed the activities by him/herself, with or without an assistive device, with no assistance from a helper. Needed Some Help: Patient needed partial assistance from another person to complete activities. Dependent: A helper completed the activities for the patient. Unknown: Not Applicable: ADL PLOF Comments Pt reported that she has been able to manage her basic self care needs. She mentioned that she usually took a sponge bath due to fear of falling in bathtub. he also was able to do home chores but thought some help would be helpful. She manages medications and bills without trouble. She has never driven and has not worked outside the home since she was and raised 4 sons. Self Care: Independent Functional Cognition: Independent DME/Equipment: Tub/Shower OT Current Status Subjective Pt seen in room, up in recliner, agreeable to OT. Pain rated 0/10 Appearance Alert, cooperative, soft spoken Mental Status/Objective Patient Orientation: Person, Place, Time, Situation Attachments: IV, Saline Lock (2), Telemetry Current Glasses/Contacts: Yes Hearing Aids: No Dentures/Partials: No Hand Dominance: Right Upper Extremity ROM Grossly WFL bilat Upper Extremity Strength Grossly 4/5 bilat ADL-Treatment ADL-Current Pt reported that she has been able to eat without difficulty, setup. She transferred min assist sit to stand with PT earlier. Min assist to get up and walk CGA, FWW to bathroom, cues. Transferred on/off toilet with min assist, cues for hand placement. Managed clothing and hygiene CGA. Will try BSC over toilet to help with transfers. Shower transfer CGA into shower, min assist to get up off bench, grab bars, FWW. 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 Dressed upper body with setup and lower body with min assist. Able to get shoes/socks off/on. Walked back to recliner and sat with CGA, cues for hand placement. Groomed setup. Slight LOB when getting on toilet and when sitting down in recliner. All ADLs took longer than usual and pt had a little difficulty with problem solving/ sequencing. Pt left up in recliner, all needs met. Eating (FIM): 5 (setup. Able to get food to mouth, get a drink) Eating (QC): 5 Grooming (FIM): 5 (setup to wash face and hands, brush hair) Bathing (FIM): 5 (Supervision, setup, cues. Washed and dried all parts. hand held shower, grab bar, shower bench) Shower/Bathe Self (QC): 4 Upper Body Dressing (FIM): 5 (Setup) Upper Body Dressing (QC): 5 Lower Body Dressing (FIM): 4 (min assist) Lower Body Dressing (QC): 3 On/Off Footwear (QC): 5 Toileting (FIM): 4 (CGA for clothing management, tall toilet, grab bar, FWW. Cues for hand placement) Toileting Hygiene (QC): 4 Toilet/Commode Transfer (FIM): 4 (Min assist on and off tall toilet, Grab bar, FWW. Cues for hand placement) Toilet Transfer (QC): 3 Shower Transfer (FIM): 4 (CGA in and out of shower, min assist off shower bench ) Education OT Patient Education: Modified ADL techniques, Progress toward Goal/Update tx plan, Purpose of tx/functional activities, Rehab process, Safety issues, Transfer techniques, Use of adapted equipment Teaching Recipient: Patient Teaching Methods: Demonstration, Discussion Response to Teaching: Verbalize Understanding, Return Demonstration, Reinforcement Needed OT Short Term Goals Short Term Goals Time Frame: Jul 23, 2018 Grooming(FIM): 5 (setup) Lower Body Dressing(FIM): 5 Toileting(FIM): 5 Toilet/Commode Transfer(FIM): 5 1=Demonstrate adherence to instructed precautions during ADL tasks. 2=Patient will verbalize/demonstrate understanding of assistive devices/ modifications for ADL. 3=Patient will improve strength/tolerance for activity to enable patient to perform ADL's. OT Computer Systems Design Analyst Goals Chcf Goals Time Frame: Jul 30, 2018 Eating (FIM): 6 Eating (QC): 6 Groomin Oral Hygiene (QC): 6 Bathing(FIM): 6 Shower/Bathe Self (QC): 6 Upper Body Dressing(FIM): 6 Upper Body Dressing (QC): 6 Lower Body Dressing(FIM): 6 Lower Body Dressing (QC): 6 On/Off Footwear (QC): 6 Toileting(FIM): 6 Toileting Hygiene (QC): 6 Toilet/Commode Transfer(FIM): 6 Toilet/Commode Transfer (QC): 6 Shower Transfer(FIM): 6 Additional Goals: 1-Demonstrate ADL Tasks, 2-Verbalize Understanding, 3- ImproveStrength/Arely 1=Demonstrate adherence to instructed precautions during ADL tasks. 2=Patient will verbalize/demonstrate understanding of assistive devices/ modifications for ADL. 3=Patient will improve strength/tolerance for activity to enable patient to perform ADL's. OT Education/Plan Problem List/Assessment Assessment: Decreased Activ Tolerance, Decreased UE Strength, Dependent Transfers, Impaired Funct Balance, Impaired Self-Care Skills Pt would benefit from skilled OT to increase her independence in basic self care to allow her to safely return home Discharge Recommendations Plan/Recommendations: Continue POC Treatment Plan/Plan of Care Patient would benefit from OT for education, treatment and training to promote independence in ADL's, mobility, safety and/or upper extremity function for ADL' s. Plan of Care: ADL Retraining, Functional Mobility, Group Exercise/Act as Ind ( education, exercise, funct mobility, act tolerance, socialization), UE Funct Exercise/Act, UE Neuromus Re-Ed/Coord Treatment Duration: Jul 30, 2018 Frequency: At least 5 of 7 days/Wk (IRF) Estimated Hrs Per Day: 1.5 hours per day Agreement: Yes Rehab Potential: Good Time/GCodes Start Time: 09:30 Stop Time: 10:45 Total Time Billed (hr/min): 75 Billed Treatment Time visit, 15 minutes evaluation moderate intensity, 60 minutes ADL PAULA YORK OT Jul 16, 2018 11:39
--- NOTE | 2018-07-16 13:28 | Occupational Ther Daily Note ---
OT Current Status-Daily Note Subjective Pt seen in room, up in recliner, agreeable to OT. No pain mentioned Mental Status/Objective Therapy Code Descriptions/Definitions Functional [place] Measure: 0=Not Assessed/NA 4=Minimal Assistance 1=Total Assistance 5=Supervision or Setup 2=Maximal Assistance 6=Modified [place] 3=Moderate Assistance 7=Complete [place] ADL-Treatment Got up from recliner with SBA, no cues for hand placement. Walked CGA, FWW to bathroom. On/off BSC placed over toilet with SBA, FWW, grab bar. Cues for hand placement on handles of BSC. Managed clothing with CGA. Walked to sink and washed hands, brushed teeth with SBA, FWW. Pt walked with CGA, FWW to commons area for group. Therapy Code Descriptions/Definitions Functional [place] Measure: 0=Not Assessed/NA 4=Minimal Assistance 1=Total Assistance 5=Supervision or Setup 2=Maximal Assistance 6=Modified [place] 3=Moderate Assistance 7=Complete [place] Therapy Quality Codes: 6 Independent with activity with or without an assistive device 5 Patient requires set up or clean up by helper. Patient completes activity by themselves 4 Supervision or touching assist (CGA). [place] provide cues , steadying assist 3 The helper provides less than half the effort to complete the activity 2 The helper provides more than half the effort to complete the activity 1 Dependent. The helper does all the effort to complete an activity 7 Patient refused to complete or attempt activity 9 The patient did not perform the activity before the current illness or injury 88 Not attempted due to Medical conditions or safety concerns Grooming (FIM): 5 (SBA) Oral Hygiene (QC): 4 (SBA, FWW) Toileting (FIM): 4 (CGA for clothing management, BSc over toilet, grab bar) Toileting Hygiene (QC): 4 Toilet/Commode Transfer (FIM): 5 (SBA, BSC over toilet, FWW. Cues for hand placement) Education OT Patient Education: Modified ADL techniques, Progress toward Goal/Update tx plan, Transfer techniques Teaching Recipient: Patient Teaching Methods: Demonstration, Discussion Response to Teaching: Verbalize Understanding, Return Demonstration, Reinforcement Needed OT Short Term Goals Short Term Goals Transfers (B,C,W/C) (FIM): 5 1=Demonstrate adherence to instructed precautions during ADL tasks. 2=Patient will verbalize/demonstrate understanding of assistive devices/ modifications for ADL. 3=Patient will improve strength/tolerance for activity to enable patient to perform ADL's. OT Clerk Carrier Goals Clerk Carrier Goals 1=Demonstrate adherence to instructed precautions during ADL tasks. 2=Patient will verbalize/demonstrate understanding of assistive devices/ modifications for ADL. 3=Patient will improve strength/tolerance for activity to enable patient to perform ADL's. OT Education/Plan Problem List/Assessment Pt would benefit from skilled OT to increase her independence in basic self care to allow her to safely return home Discharge Recommendations Plan/Recommendations: Continue POC Treatment Plan/Plan of Care Patient would benefit from OT for education, treatment and training to promote independence in ADL's, mobility, safety and/or upper extremity function for ADL' s. Plan of Care: ADL Retraining, Functional Mobility, Group Exercise/Act as Ind ( education, exercise, funct mobility, act tolerance, socialization), UE Funct Exercise/Act, UE Neuromus Re-Ed/Coord Treatment Duration: Jul 30, 2018 Frequency: At least 5 of 7 days/Wk (IRF) Estimated Hrs Per Day: 1.5 hours per day Agreement: Yes Rehab Potential: Good Time/GCodes Start Time: 12:50 Stop Time: 13:00 Total Time Billed (hr/min): 10 Billed Treatment Time visit, 10 minutes ADL PAULA YORK OT Jul 16, 2018 13:28
--- NOTE | 2018-07-16 13:32 | ST Cognitive Linguistic Eval ---
Speech Evaluation-General Medical Diagnosis debility Onset Date: Jul 14, 2018 Therapy Diagnosis Therapy Diagnosis: Cognitive-communication Precautions Precautions/Isolations: Fall Prevention, Standard Precautions Medical History Pertinent Medical History: CAD, [place] Reviewed History: Yes Social History Current Living Status: Alone Speech PLF-Current Status Prior Level of Function Patient lived alone and was independent for most of her daily needs. Her son is very active in assisting her with her needs as well. Subjective Patient was pleasant and cooperative. Language Eval: Auditory Comprehends Simple Yes/No Ques: Functional Indent/Objects Multiple [place]: Functional Follows 1-Step Commands: Functional Follows Complex Directions: Moderate Follows General Conversations: Mild Language Eval: Verbal Language Completes Spontaneous Greeting: Functional Produces Auto, Serial Info: Functional Imitates Simple Words/Phrases: Functional Word Finding: Mild Requests Basic Needs: Functional States Basic Personal Info: Functional Expresses Complex Ideas: Moderate Cognitive Patient Orientation Patient is oriented x3. Objective Cognitive Domain Attention: Mild Memory: Moderate Problem Solving: Moderate Executive Functions: Moderate Patient is noted to have significant difficulty with sequencing tasks. Objective Formal/Standardized Tests [facility] Cognitive/Communication Results Memory: Immediate: 3/3, Delayed with cues 1/3, Mental Control: 3/4, Problem Solving: Simple3/4, Complex 0/4, Auditory Comprehension: Simple: 3/5, Complex: 1 /5, Oral Motor/Speech Production Within Functional Limits Impression Patient is an 87 year old female who was evaluated per physician order. Patient was noted to have significant deficits in the following areas: Memory, Problem Solving, Sequencing and Auditory Processing. Communication/Social Cognition Comprehension: 2 Expression: 2 Social Interaction: 3 Problem Solvin Memory: 2 Speech Patient Assess Expression of Ideas/Wants: Frequently (2) Understanding Verbal Content: Sometimes Understands(2) Brief Interview-Mental Status: Yes Repetition of Three Words: Three (3) Temporal Orientation: Year: Correct (3) Temporal Orientation: Month: Accurate within 5 days(2) Temporal Orientation: Day: Correct (1) Recall : Wear to say "Sock": No, could not recall (0) Recall : Color: Yes, after cueing (1) Recall : Bed: No, could not recall (0) Memory/Recall Ability: That he or she is in a hsp/hsp unit Speech Short Term Goals Short Term Goals Short Term Goals 1) Patient will increase functional problems solving skills to 90% with minimal verbal cues. 2) Patient will increase memory skills to 90% with compensatory strategies as trained in order to increase safety during daily living tasks. 3) Patient will increase sequencing skills to 90% with minimal verbal cues. Speech Director Of Community Life Goals Nursing Home Goals Patient will improve overall function with memory, problem solving and auditory comprehension to be safe in her living environment. Speech-Plan Patient/Family Goals Patient/Family Goals: Patient plans to return home with family support for all daily tasks. Treatment Plan Speech Therapy Treatment Plan: Continue Plan of Care Patient is recommended for skilled ST services. Treatment Duration: Jul 23, 2018 Frequency: 5 times per week Estimated Hrs Per Day: .5 hour per day Rehab Potential: Guarded Barriers to Learning: Patient has deficits in memory, sequencing and auditory processing. Pt/Family Agrees to Plan: Yes Safety Risks/Education Teaching Recipient: Patient Teaching Methods: Discussion Response to Teaching: Verbalize Understanding Education Topics Provided: Safety within her new living area (hospital room) Time Speech Therapy Time In: 10:45 Speech Therapy Time Out: 11:00 Total Billed Time: 15 Billed Treatment Time 1, MAGALI Masters Jul 16, 2018 13:32
--- NOTE | 2018-07-16 15:19 | Therapy Group Daily Note ---
Therapy Daily Group Note Patient Education Topic Other List Below Exercises LE Seated Exercise, UE Exercise Other/Notes Pt ambulated to OT/PT group with FWW. Pt introduced self to group for socialization. Pt introduced self appropriately and actively listened to peers. Pt contributed to conversation to peers and actively initiated conversations. Group education consisted of role of ARU and expectations, memory, and exercise. Pt participated in UE/LE seated exercises and participated in group memory activity. Pt was able to follow direction and complete seated exercises. Pt returned to room with needs met after session. Start Time: 13:00 Stop Time: 14:15 Total Billed Treatment Time: 75 Total Billed Treatment 1 visit, GRP(75minutes) NIKOLAI WHITE OT Jul 16, 2018 15:19
[2018-07-16] MEDS: CEFEPIME INJECTION 2,000 MG in NS (IVPB) 50 ML IV SCH (17:20)
[2018-07-16 18:11] VITALS: BP 165/67
--- NOTE | 2018-07-16 19:55 | PM&R Post Admission Assessment ---
Post Admission Physician Asses Date seen by provider: Jul 16, 2018 Time seen by provider: 19:45 The preadmission screen agrees with the post admission assessment that the patient is a good candidate for inpatient rehabilitation. The patient will have a comprehensive program of inpatient rehabilitation with a goal of maximizing level of functional independence prior to discharge home with son. The patient will have PT/OT ninety minutes per day, each discipline , five days a week for 2 weeks for gait, strengthening, conditioning, balance, ADLs, any patient/family/caregiver training as necessary. Speech therapy to do cognitive assessment and treat as indicated for 3 to 5 days for 2 weeks for 30 to 45 min per day. Rehabilitation nursing to assist with bowel, bladder, skin, wound care, medication administration, pain management. Sticker Hand to assist with discharge planning, community reentry. SCD's for DVT prophylaxis. She appears to be well motivated to participate in three hours of therapy a day. She should be able to tolerate three hours of therapy a day from a medical standpoint. She should benefit from the three hours of therapy a day. She has a reasonable discharge plan, reasonable discharge rehabilitation goals and a supportive family. She has various comorbidities that need to be closely monitored with medications and treatments adjusted on a daily basis as needed. These include: Chronic right shoulder wound with cellulitis Ischemic cardiomyopathy s/p TX Chronic constipation Glaucoma IGC debility Etiologic DX Generalized muscle weakness Barriers to discharge for this patient who had been independent prior to this are for her to be modified independent to supervision for ADLs and mobility skills prior to discharge home with her son, so as to lessen the burden of the caregivers. Risks for this patient include: 1. Fall 2. Fracture 3. DVT 4. Pulmonary embolism 5. Wound infection 6. Skin breakdown 7. Contractures 8. Poorly controlled pain 9. Urinary retention 10. UTI 11. Respiratory infection 12. Aspiration 13. 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 Date Identified: Jul 16, 2018 Time Identified: 19:45 Action Plan to Resolve CSMI: Transfer meds reviewed General: Alert, Oriented X3, Cooperative, No Acute Distress, Other (knows the month) HEENT: Atraumatic, PERRLA, EOMI, Mucous Memb Moist/[place] Neck: Supple, No JVD Lungs: Clear to Auscultation Heart: Regular Rate Abdomen: Normal Bowel Sounds, Soft Extremities: Other (chronic changed both legs with dressing applied) Skin: Other (Chronic wound left shoulder) Neuro: Other (Strength lower limbs 4-/5) BETH GOOD MD Jul 16, 2018 19:55
--- NOTE | 2018-07-16 20:35 | HISTORY AND PHYSICAL ---
DATE OF SERVICE: 07/16/2018 CHIEF COMPLAINT: Difficulty with walking. HISTORY OF PRESENT ILLNESS: The patient is an 87-year-old female who was admitted via the ER to hospitalist service after having a fall at home. She was found to have cellulitis of a chronic right shoulder wound and lactic acidosis. She had been going to [place] for wound care of her right inner lower leg and had been treated for several months, but was having increased problems with that as well as with her right shoulder. She has no PCP in this area, but does go to Dr. Myers since an PA a couple of years ago. Her son checks in on her. She was referred to inpatient rehabilitation unit due to decline in her functional independence. She had been independent prior to this, but rarely leaves her home. She no longer drives and currently, she is min assist for transfers and gait with a walker. She is set up for eating, min assist for bathing, min assist for lower body dressing, set up for upper body dressing. Speech Therapy notes some impaired memory and higher order cognitive skills. She does know the month. She is referred to inpatient rehabilitation unit for ongoing care and therapy. She continues on antibiotics and dressing to right leg and right shoulder. She had a CT of the head, which was negative. PAST MEDICAL HISTORY: Chronic wounds, ischemic cardiomyopathy, PA. PAST SURGICAL HISTORY: None. ALLERGIES: AMOXICILLIN. FAMILY HISTORY: Noncontributory. SOCIAL HISTORY: Lives alone in [place], has a supportive son who presents to unit with her. He does stay with her at times, but has his own home. REVIEW OF SYSTEMS: A 10-point review of systems significant for some memory impairment, falls and chronic wounds. MEDICATIONS: Vancomycin IV q.24h, cefepime q.24h IV, Proventil 2.5 mg q.4 hours p.r.n. shortness of breath, metoprolol 25 mg p.o. daily, lisinopril 2.5 mg p.o. daily, Plavix 75 mg p.o. daily, aspirin 81 mg p.o. daily, vitamin C 500 mg p.o. daily. PHYSICAL EXAMINATION: GENERAL: Significant for a pleasant female appearing her stated age, sitting in wheelchair, in no acute distress. VITAL SIGNS: She is afebrile, pulse 74, respirations 18, blood pressure 165/67, O2 sat 98% on room air. HEENT: Vision, speech, hearing grossly intact. No oral lesions noted. NECK: Supple without mass. HEART: Regular rhythm. CHEST: Clear. ABDOMEN: Soft, nontender, bowel sounds present. EXTREMITIES: She has chronic changes both legs from prior wounds with current dressing on right leg. She has a dressing over the right shoulder as well. MUSCULOSKELETAL: Strength is 4-/5 both lower limbs with functional active range of motion. She has full functional upper limb range of motion and strength of both upper limbs 4/5. NEUROLOGIC: Speech Therapy notes some difficulty with following complex directions with mild attention deficits, moderate memory deficits, moderate problem solving deficits, moderate executive functions deficits. IMPRESSION: 1. General debilitation, status post fall associated with a chronic wound, right shoulder, right leg, under treatment. 2. Ischemic cardiomyopathy followed by cardiology. 3. Cognitive deficits, possible mild dementia. 4. Chronic constipation. 5. Glaucoma. PLAN: The patient will have a comprehensive program of inpatient rehabilitation with goal of maximizing level of functional independence prior to discharge home with son and home health care. The patient will have PT, OT 90 minutes per day each discipline 5 days a week for 2 weeks with above goals in mind. Speech Therapy to do a cognitive assessment and treat as indicated 3 to 5 times a week for 1 to 2 weeks 30 to 45 minutes per session to improve cognition as much as possible and teach compensatory techniques as needed. Please see post-admission physician evaluation for details of plan of care. Rehabilitation nursing assist for bowel, bladder, skin, wound care, medication administration, pain management and aids social worker for discharge planning, community reentry. Follow up with hospitalist service as per their schedule. ESTIMATED LENGTH OF STAY: Two weeks. PROGNOSIS: Rehab prognosis appears fair for goal of discharging home with son and home healthcare, modified independence and supervision for ADLs, mobility skills due to the patient's cognitive deficits. She may certainly benefit from a more formal assisted living facility taking into consideration her comorbidities, including chronic wounds and history of falls. DIET: Regular. CODE STATUS: Full code. Job ID: [id number] DocumentID: [id number] Dictated Date: 07/16/2018 20:07:29 Cocktail Server Date: 07/16/2018 20:35:08 Dictated By: BETH GOOD MD [facility]ENTEREsvin
[2018-07-17] MEDS: NS IV 1000 ML 1,000 ML IV SCH (05:06)
[2018-07-17 07:15] VITALS: BP 159/70
--- NOTE | 2018-07-17 08:19 | PM & R (SOAP) Progress Note ---
Subjective This was a face to face visit with the patient. Date Seen by Provider: Jul 17, 2018 Time Seen by Provider: 07:25 Subjective/Events-last exam Patient was seen in her room this AM Patient Min assist for transfers Patient adjusting well to unit Discussed case with RN Will d/c IVFS Time Identified: 07:45 Medication Intervention: D/C IVFS Objective Physician Exam Last Set of Vital Signs Vital Signs Date Time Temp Pulse Resp B/P (MAP) Pulse Ox O2 Delivery O2 Flow Rate FiO2 07/17/18 07:15 95.9 58 16 159/70 (99) 98 Room Air Capillary Refill : I&O Intake and Output 07/17/18 00:00 Intake Total 240 ml Output Total 700 ml Balance -460 ml Intake Oral 240 ml Output Urine Total 700 ml # Voids 1 Daily Weight Change No General: Alert, Oriented X3, Cooperative, No Acute Distress, Other (knows the month) HEENT: Atraumatic, PERRLA, EOMI, Mucous Memb Moist/[place] Neck: Supple, No JVD Lungs: Clear to Auscultation Heart: Regular Rate Abdomen: Normal Bowel Sounds, Soft Extremities: Other (chronic changed both legs with dressing applied) Skin: Other (Chronic wound left shoulder) Neuro: Other (Strength lower limbs 4-/5) Assessment/Plan Assessment and Plan General debil s/p fall with cellulitis RT shoulder and rt leg under treatment Ischemic cardiomyopathy followed by Cardiology Cognitive deficits ST addressing Chronic constipation Glaucoma Plan Continue PT/OT/ST F/U wound care and Antibiotics F/U with Hospitalist D/C IVFS TEam Conference next week Co-Morbidities that are continuing to impact the rehab process: (include details ) BETH GOOD MD Jul 17, 2018 08:19
[2018-07-17] MEDS: ASPIRIN E.C. 81 MG (ECOTRIN) TAB PO SCH (08:50)
[2018-07-17] MEDS: CLOPIDOGREL 75 MG (PLAVIX) TABLET PO SCH (08:50)
[2018-07-17] MEDS: ASCORBIC ACID (VIT C) 500 MG TABLET PO SCH (08:50)
[2018-07-17] MEDS: lisINopril 5 MG (PRINIVIL) TABLET PO SCH (08:50)
[2018-07-17 08:56] VITALS: BP 168/73
--- NOTE | 2018-07-17 10:32 | Physical Therapy Daily Note ---
PT Daily Note-Current Subjective Pt sitting up at EOB upon arrival. Pt agrees to PT reluctantly, stating tired today. Pain Numeric Pain Scale: 5-Moderate Pain Location: Left, Dorsal Location Body Site: Neck Pain Description: Ache Mental Status Patient Orientation: Person, Place Attachments: IV Pt has flat affect. Transfers Therapy Code Descriptions/Definitions Functional [place] Measure: 0=Not Assessed/NA 4=Minimal Assistance 1=Total Assistance 5=Supervision or Setup 2=Maximal Assistance 6=Modified [place] 3=Moderate Assistance 7=Complete [place] Therapy Quality Codes: 6 Independent with activity with or without an assistive device 5 Patient requires set up or clean up by helper. Patient completes activity by themselves 4 Supervision or touching assist (CGA). [place] provide cues , steadying assist 3 The helper provides less than half the effort to complete the activity 2 The helper provides more than half the effort to complete the activity 1 Dependent. The helper does all the effort to complete an activity 7 Patient refused to complete or attempt activity 9 The patient did not perform the activity before the current illness or injury 88 Not attempted due to Medical conditions or safety concerns Scootin Sit to/from Stand: 3 Sit to Stand (QC): 3 Weight Bearing Right Lower Extremity: Right Full Weight Bearing Left Lower Extremity: Left Full Weight Bearing Gait Training Does the Patient Walk?: Yes Distance (FIM): 1=up to 49 ft Distance: 25 Walk 10 feet (QC): 4 Gait Level of Assist: 4 Gait Persons Needed: 1 Gait Assistive Device: FWW Pt walks with flexed BLE. Pt also walks with slight kyphotic posture, slow prasanth. Exercises Seated Therapy Exercises: Ankle pumps, Long arc quads, Hip flexion, Kicking activity Seated Reps: 15 Treatments Pt reporting problem with IV to Nurse upon arrival. Pt notices leak in L IV so it is removed then attempts to flush the R IV but also leaks. R IV also removed at this time. It continues to bleed after Nurse leaves while pt is working with SURGICAL AIDE. Nurse is notified. Pressure is applied to slow bleeding until it stops. Pt continues Seated Ex at EOB. Pt uses restroom and changes gown while in restroom. Pt ambulates back to recliner to rest and order breakfast. Aide is present at this time to assist with ordering. Pt has all needs met. Assessment Current Status: Fair Progress Pt is self limiting and fatigues easily. PT Short Term Goals Short Term Goals Time Frame: Jul 23, 2018 Gait (FIM): 4 PT Operating Room Surgical Technician Goals Operating Room Surgical Technician Goals PT Fpc Goals Time Frame: Jul 30, 2018 Transfers (B,C,W/C) (FIM): 7 Sit to Lying (QC): 6 Lying-Sitting on Side/Bed(QC): 6 Sit to Stand (QC): 6 Roll Left to Right (QC): 6 Chair/Sni-md-Rojsc Xfer(QC): 6 Car Transfer (QC): 6 Does the Patient Walk: Yes Gait (FIM): 6 (with FWW or a cane) Gait distance (FIM): 3=150 ft Walk 10 feet (QC): 6 Walk 10ft-Uneven Surface(QC): 6 Walk 50ft with 2 Turns (QC): 6 Walk 150 ft (QC): 6 Gait Assistive Device: FWW (or cane) Does the Pt use WC or Scooter?: No Stairs (FIM): 5 (household level) # of Steps: 4 1 Step (curb) (QC): 6 4 Steps (QC): 6 12 Steps (QC): 88 Picking up an Object (QC): 4 PT Plan Problem List Problem List: Activity Tolerance, Functional Strength, Safety, Balance, Gait, Transfer Treatment/Plan Treatment Plan: Continue Plan of Care Treatment Plan: Bed Mobility, Education, Functional Activity Arely, Functional Strength, Group Therapy, Gait, Safety, Therapeutic Exercise, Transfers Treatment Duration: Jul 30, 2018 Frequency: At least 5 of 7 days/Wk (IRF) Estimated Hrs Per Day: 1.5 hours per day Patient and/or Family Agrees t: Yes Safety Risks/Education Patient Education: Gait Training, Transfer Techniques, Correct Positioning, Safety Issues Teaching Recipient: Patient Teaching Methods: Discussion Response to Teaching: Verbalize Understanding Time/GCodes Time In: 850 Time Out: 930 Total Billed Treatment Time: 40 Total Billed Treatment 1, FA x2 (25m) & EX (15m) G Codes Necessary: KELY Jacome SURGICAL AIDE Jul 17, 2018 10:32
[2018-07-17 11:25] VITALS: BP 133/65
--- NOTE | 2018-07-17 11:56 | Progress Note-Hospitalist ---
Subjective HPI/CC On Admission Date Seen by Provider: Jul 17, 2018 Time Seen by Provider: 10:30 Subjective/Events-last exam Patient doing better since arriving IRF Bowels are not moving too well so giving meds for that Pain is controlled IV replacing since they both infiltrated IV abx to continue until Thursday Checked meds and labs Chronic debility Review of Systems General: Fatigue Objective Exam Vital Signs Vital Signs Date Time Temp Pulse Resp B/P (MAP) Pulse Ox O2 Delivery O2 Flow Rate FiO2 07/17/18 11:25 62 133/65 (87) 07/17/18 09:59 Room Air 07/17/18 07:15 95.9 16 98 Capillary Refill : General Appearance: No Apparent Distress, WD/WN, Chronically ill, Cachetic Respiratory: Chest Non Tender, Lungs Clear, Normal Breath Sounds, No Accessory Muscle Use, No Respiratory Distress Cardiovascular: Regular Rate, Rhythm, No Edema, No Gallop, No JVD, No Murmur, Normal Peripheral Pulses Neurologic/Psychiatric: Alert, Oriented x3, No Motor/Sensory Deficits, Normal Mood/Affect Skin: Normal Color, Warm/Dry Results/Procedures Lab Patient resulted labs reviewed. Assessment/Plan Assessment and Plan Assess & Plan/Chief Complaint Assessment: s/p severe lactic acidosis Chronic wound infection on IV abx until Thursday CAD Cardiomyopathy Noncompliance Plan: Home meds BM regimen Pain control Diagnosis/Problems Diagnosis/Problems (1) Debility Status: Acute (2) Wound of back Status: Chronic (3) Cellulitis of leg Status: Acute Qualifiers: Laterality: unspecified laterality Qualified Codes: L03.119 - Cellulitis of unspecified part of limb (4) Wound infection Status: Acute (5) Anemia associated with acute blood loss Status: Acute Clinical Quality Measures DVT/VTE Risk/Contraindication: Risk Factor Score Per Nursin RFS Level Per Nursing on Admit: 3=High CADENCE SHARP DO Jul 17, 2018 11:56
[2018-07-17] MEDS: VANCOMYCIN INJECTION 750 MG in NS (IVPB) 250 ML IV SCH ×2 (15:54→18:54)
[2018-07-17] MEDS ORDERED: TROUGH ORDER-PHARMACY XX NR (17:30)
[2018-07-17] MEDS: CEFEPIME INJECTION 2,000 MG in NS (IVPB) 50 ML IV SCH (17:38)
[2018-07-17 18:00] VITALS: BP 129/61
[2018-07-18 05:02] VITALS: BP 138/64
[2018-07-18] MEDS: ASPIRIN E.C. 81 MG (ECOTRIN) TAB PO SCH (08:41)
[2018-07-18] MEDS: lisINopril 5 MG (PRINIVIL) TABLET PO SCH (08:41)
[2018-07-18] MEDS: CLOPIDOGREL 75 MG (PLAVIX) TABLET PO SCH (08:41)
[2018-07-18] MEDS: ASCORBIC ACID (VIT C) 500 MG TABLET PO SCH (08:41)
[2018-07-18] MEDS: VANCOMYCIN 1250 MG/NS 250 ML IVPB IV SCH ×2 (13:41)
[2018-07-18] MEDS: CEFEPIME INJECTION 2,000 MG in NS (IVPB) 50 ML IV SCH (16:29)
[2018-07-18 18:00] VITALS: BP 168/77
[2018-07-19 05:32] VITALS: BP 143/76
--- NOTE | 2018-07-19 08:57 | Physical Therapy Daily Note ---
PT Daily Note-Current Subjective Pt. reluctant at first to participate in PT. After some orientation to the processes of Rehab pt. was agreeable to Rx. Pain Numeric Pain Scale: 0-No Pain Location: No Pain Reported Mental Status Patient Orientation: Person, Place, Time, Situation Transfers Therapy Code Descriptions/Definitions Functional [place] Measure: 0=Not Assessed/NA 4=Minimal Assistance 1=Total Assistance 5=Supervision or Setup 2=Maximal Assistance 6=Modified [place] 3=Moderate Assistance 7=Complete [place] Therapy Quality Codes: 6 Independent with activity with or without an assistive device 5 Patient requires set up or clean up by helper. Patient completes activity by themselves 4 Supervision or touching assist (CGA). [place] provide cues , steadying assist 3 The helper provides less than half the effort to complete the activity 2 The helper provides more than half the effort to complete the activity 1 Dependent. The helper does all the effort to complete an activity 7 Patient refused to complete or attempt activity 9 The patient did not perform the activity before the current illness or injury 88 Not attempted due to Medical conditions or safety concerns Transfers (B, C, W/C) (FIM): 5 Scootin Rollin Supine to/from Sit: 5 Sit to/from Stand: 5 Bed to/from Chair: 5 needed instruction in safe TRF techniques and use of hands as well as log roll etc. pt. followed instruction well Weight Bearing Right Lower Extremity: Right Full Weight Bearing Left Lower Extremity: Left Full Weight Bearing Gait Training Does the Patient Walk?: Yes Gait (FIM): 5 Distance (FIM): 3=150 ft (175x2) Gait Level of Assist: 5 Gait Persons Needed: 1 Gait Assistive Device: FWW needed instruction as well as direction, states she had not used FWW prior to this Stair Training Stair Training: Handrails/: 2 handrails Stairs (FIM): 2 #of Steps: 4 Stairs: Pattern: Step to Level of Assist: 4 instructed in sequence and followed well, seemed pleased with herself Exercises Supine Ex: Bridging, Ankle pumps, Rolling, Heel Slides, Scooting, Straight leg raise, Hip abd/add Supine Reps: 12 NuStep Minutes: 10 NuStep Workload: 1 Assessment Current Status: Good Progress pt. apprehensive, anxious but improved with explanation and encouragement PT Short Term Goals Short Term Goals Time Frame: Jul 23, 2018 Gait (FIM): 4 PT Intermediate Goals Intermediate Goals PT Highway Maintenance Technician Goals Time Frame: Jul 30, 2018 Transfers (B,C,W/C) (FIM): 7 Sit to Lying (QC): 6 Lying-Sitting on Side/Bed(QC): 6 Sit to Stand (QC): 6 Roll Left to Right (QC): 6 Chair/Zye-sg-Eqjex Xfer(QC): 6 Car Transfer (QC): 6 Does the Patient Walk: Yes Gait (FIM): 6 (with FWW or a cane) Gait distance (FIM): 3=150 ft Walk 10 feet (QC): 6 Walk 10ft-Uneven Surface(QC): 6 Walk 50ft with 2 Turns (QC): 6 Walk 150 ft (QC): 6 Gait Assistive Device: FWW (or cane) Does the Pt use WC or Scooter?: No Stairs (FIM): 5 (household level) # of Steps: 4 1 Step (curb) (QC): 6 4 Steps (QC): 6 12 Steps (QC): 88 Picking up an Object (QC): 4 PT Plan Treatment/Plan Treatment Plan: Continue Plan of Care Treatment Plan: Bed Mobility, Education, Functional Activity Arely, Functional Strength, Group Therapy, Gait, Safety, Therapeutic Exercise, Transfers Treatment Duration: Jul 30, 2018 Frequency: At least 5 of 7 days/Wk (IRF) Estimated Hrs Per Day: 1.5 hours per day Patient and/or Family Agrees t: Yes Safety Risks/Education Patient Education: Gait Training, Transfer Techniques, Steps, Correct Positioning, Disease Process, Safety Issues Teaching Recipient: Patient Teaching Methods: Demonstration, Discussion Response to Teaching: Verbalize Understanding, Return Demonstration, Reinforcement Needed Time/GCodes Time In: 800 Time Out: 900 Total Billed Treatment Time: 60 Total Billed Treatment 1,EX20m,FA25m,GT15m G Codes Necessary: No CJ LUNA PTA Jul 19, 2018 08:57
[2018-07-19] MEDS: ASCORBIC ACID (VIT C) 500 MG TABLET PO SCH (09:02)
[2018-07-19] MEDS: lisINopril 5 MG (PRINIVIL) TABLET PO SCH (09:02)
[2018-07-19] MEDS: CLOPIDOGREL 75 MG (PLAVIX) TABLET PO SCH (09:02)
[2018-07-19] MEDS: ASPIRIN E.C. 81 MG (ECOTRIN) TAB PO SCH (09:03)
[2018-07-19 09:05] VITALS: BP 161/62
[2018-07-19] MEDS ORDERED: MILK OF MAGNESIA 400 MG/5 ML 30 ML UDC PO PRN (10:30)
[2018-07-19] MEDS: VANCOMYCIN 1250 MG/NS 250 ML IVPB IV SCH ×2 (12:33)
--- NOTE | 2018-07-19 12:50 | Occupational Ther Daily Note ---
OT Current Status-Daily Note Subjective Pt seen in room, up in recliner, agreeable to OT. No pain mentioned. Appearance Alert, cooperative Mental Status/Objective Therapy Code Descriptions/Definitions Functional [place] Measure: 0=Not Assessed/NA 4=Minimal Assistance 1=Total Assistance 5=Supervision or Setup 2=Maximal Assistance 6=Modified [place] 3=Moderate Assistance 7=Complete [place] ADL-Treatment Pt declined shower, stating she had one last night. Did not have clean clothes to change into. Pt got up from recliner with SBA and walked SBA, FWW to bathroom. Stood at sink to brush teeth, wash hands, comb hair. Toileted with SBA for transfer and clothing management. Therapy Code Descriptions/Definitions Functional [place] Measure: 0=Not Assessed/NA 4=Minimal Assistance 1=Total Assistance 5=Supervision or Setup 2=Maximal Assistance 6=Modified [place] 3=Moderate Assistance 7=Complete [place] Therapy Quality Codes: 6 Independent with activity with or without an assistive device 5 Patient requires set up or clean up by helper. Patient completes activity by themselves 4 Supervision or touching assist (CGA). [place] provide cues , steadying assist 3 The helper provides less than half the effort to complete the activity 2 The helper provides more than half the effort to complete the activity 1 Dependent. The helper does all the effort to complete an activity 7 Patient refused to complete or attempt activity 9 The patient did not perform the activity before the current illness or injury 88 Not attempted due to Medical conditions or safety concerns Grooming (FIM): 5 (SBA, cues for walker placement, at sink) Toileting (FIM): 5 (SBA for clothing management. Tall toilet, grab bar, FWW) Toilet/Commode Transfer (FIM): 5 (SBA, tall toilet, grab bar, FWW) Other Treatment Pt walked to commons area, took a brief recovery break, then walked to gym, SBA , FWW. No LOB. Pt did 12 minutes bilat UE exercise with arm bike set at 12W, taking one brief recovery period. Pt also did bilat UE exercise with exercise bar, completing 10 reps ex at shoulders and elbows. She was able to track reps herself without difficulty. To strengthen arms to help with transfers and ADLs. Pt walked back to room SBA, FWW and was left up in bed, all needs met. Education OT Patient Education: Modified ADL techniques, Progress toward Goal/Update tx plan, Purpose of tx/functional activities, Transfer techniques Teaching Recipient: Patient Teaching Methods: Discussion Response to Teaching: Verbalize Understanding, Return Demonstration, Reinforcement Needed OT Short Term Goals Short Term Goals Time Frame: Jul 23, 2018 Grooming(FIM): 5 (setup) Lower Body Dressing(FIM): 5 Toileting(FIM): 5 Toilet/Commode Transfer(FIM): 5 1=Demonstrate adherence to instructed precautions during ADL tasks. 2=Patient will verbalize/demonstrate understanding of assistive devices/ modifications for ADL. 3=Patient will improve strength/tolerance for activity to enable patient to perform ADL's. OT Intermediate Goals Lav Crewman Goals Time Frame: Jul 30, 2018 Eating (FIM): 6 Eating (QC): 6 Groomin Oral Hygiene (QC): 6 Bathing(FIM): 6 Shower/Bathe Self (QC): 6 Upper Body Dressing(FIM): 6 Upper Body Dressing (QC): 6 Lower Body Dressing(FIM): 6 Lower Body Dressing (QC): 6 On/Off Footwear (QC): 6 Toileting(FIM): 6 Toileting Hygiene (QC): 6 Toilet/Commode Transfer(FIM): 6 Toilet/Commode Transfer (QC): 6 Shower Transfer(FIM): 6 Additional Goals: 1-Demonstrate ADL Tasks, 2-Verbalize Understanding, 3- ImproveStrength/Arely 1=Demonstrate adherence to instructed precautions during ADL tasks. 2=Patient will verbalize/demonstrate understanding of assistive devices/ modifications for ADL. 3=Patient will improve strength/tolerance for activity to enable patient to perform ADL's. OT Education/Plan Problem List/Assessment Pt would benefit from skilled OT to increase her independence in basic self care to allow her to safely return home Discharge Recommendations Plan/Recommendations: Continue POC Treatment Plan/Plan of Care Patient would benefit from OT for education, treatment and training to promote independence in ADL's, mobility, safety and/or upper extremity function for ADL' s. Plan of Care: ADL Retraining, Functional Mobility, Group Exercise/Act as Ind ( education, exercise, funct mobility, act tolerance, socialization), UE Funct Exercise/Act, UE Neuromus Re-Ed/Coord Treatment Duration: Jul 30, 2018 Frequency: At least 5 of 7 days/Wk (IRF) Estimated Hrs Per Day: 1.5 hours per day Agreement: Yes Rehab Potential: Guarded Time/GCodes Start Time: 09:00 Stop Time: 10:00 Total Time Billed (hr/min): 60 Billed Treatment Time visit, 25 minutes ADL, 35 minutes exercise PAULA YORK OT Jul 19, 2018 12:50
--- NOTE | 2018-07-19 14:24 | Therapy Group Daily Note ---
Therapy Daily Group Note Patient Education Topic Other List Below (Hand washing) Exercises LE Seated Exercise, UE Exercise Other/Notes Patient participated in group therapy. Introductions, socialization, hand washing education, UE, LE seated exercises, memory activity and following direction activity. Patient was able to follow directions at 50% with moderate verbal cues. Start Time: 13:00 Stop Time: 14:05 Total Billed Treatment Time: 65 Total Billed Treatment 1-GRP MAGALI CLYA Jul 19, 2018 14:24
--- NOTE | 2018-07-19 15:22 | Speech Therapy Daily Note ---
Speech Daily Progress Note Subjective Date Seen by Provider: Jul 19, 2018 Time Seen by Provider: 00:15 Patient requires frequent prompts to participate in therapy. Objective Patient completed simple memory tasks at 50% accuracy given max cues and repetitions. Assessment Assessment Current Status: Fair Progress Treatment Plan Continue Plan of Care Communication Comprehension: 2 Expression: 2 Social Cognition Social Interaction: 3 Problem Solvin Memory: 2 Speech Short Term Goals Short Term Goals Short Term Goals 1) Patient will increase functional problems solving skills to 90% with minimal verbal cues. 2) Patient will increase memory skills to 90% with compensatory strategies as trained in order to increase safety during daily living tasks. 3) Patient will increase sequencing skills to 90% with minimal verbal cues. Speech Stoker Mechanic Goals Penitentiary Goals Patient will improve overall function with memory, problem solving and auditory comprehension to be safe in her living environment. Speech-Plan Patient/Family Goals Patient/Family Goals: Patient plans to return home with family support. Treatment Plan Speech Therapy Treatment Plan: Continue Plan of Care Patient requires maximum cues for participation in therapy. Treatment Duration: Jul 23, 2018 Frequency: 5 times per week Estimated Hrs Per Day: .5 hour per day Rehab Potential: Guarded Barriers to Learning: Memory, [place] BAND Pt/Family Agrees to Plan: Yes Safety Risks/Education Teaching Recipient: Patient Teaching Methods: Discussion Response to Teaching: Verbalize Understanding Education Topics Provided: Safety and communication to staff to have her wants/needs met. Time Speech Therapy Time In: 14:45 Speech Therapy Time Out: 15:00 Total Billed Time: 15 Billed Treatment Time 1, MAGALI Perdomo Jul 19, 2018 15:22
[2018-07-19 16:03] VITALS: BP 139/71
[2018-07-19] MEDS: CEFEPIME INJECTION 2,000 MG in NS (IVPB) 50 ML IV SCH (17:35)
--- NOTE | 2018-07-19 18:59 | PM & R (SOAP) Progress Note ---
Subjective This was a face to face visit with the patient. Date Seen by Provider: Jul 19, 2018 Time Seen by Provider: 18:30 Subjective/Events-last exam Patient was seen in her room this evening Patient SBA for transfers Objective Physician Exam Last Set of Vital Signs Vital Signs Date Time Temp Pulse Resp B/P (MAP) Pulse Ox O2 Delivery O2 Flow Rate FiO2 07/19/18 16:03 97.4 57 16 139/71 (93) 100 Room Air 07/19/18 08:08 98 Capillary Refill : I&O Intake and Output 07/19/18 00:00 Intake Total 550 ml Output Total 1900 ml Balance -1350 ml Intake Oral 550 ml Output Urine Total 1900 ml General: Alert, Oriented X3, Cooperative, No Acute Distress, Other (knows the month) HEENT: Atraumatic, PERRLA, EOMI, Mucous Memb Moist/[place] Neck: Supple, No JVD Lungs: Clear to Auscultation Heart: Regular Rate Abdomen: Normal Bowel Sounds, Soft Extremities: Other (chronic changed both legs with dressing applied) Skin: Other (Chronic wound left shoulder) Neuro: Other (Strength lower limbs 4-/5) Results Lab Data Laboratory Tests 07/17/18 17:30: Vancomycin Level Trough 7.2L Assessment/Plan Assessment and Plan General debil s/p fall with cellulitis RT shoulder and rt leg under treatment on antibiotics Ischemic cardiomyopathy followed by Cardiology Cognitive deficits ST addressing Chronic constipation Glaucoma Plan Continue PT/OT/ST Team Conference 07-21-18 Co-Morbidities that are continuing to impact the rehab process: (include details ) BETH GOOD MD Jul 19, 2018 18:59
[2018-07-20 06:08] VITALS: BP 152/66
[2018-07-20 07:00] VITALS: BP 152/66
[2018-07-20 07:34] VITALS: BP 146/62
[2018-07-20] MEDS: ASPIRIN E.C. 81 MG (ECOTRIN) TAB PO SCH (08:02)
[2018-07-20] MEDS: CLOPIDOGREL 75 MG (PLAVIX) TABLET PO SCH (08:03)
[2018-07-20] MEDS: ASCORBIC ACID (VIT C) 500 MG TABLET PO SCH (08:03)
[2018-07-20] MEDS: lisINopril 5 MG (PRINIVIL) TABLET PO SCH (08:05)
--- NOTE | 2018-07-20 08:23 | PM & R (SOAP) Progress Note ---
Subjective This was a face to face visit with the patient. Date Seen by Provider: Jul 20, 2018 Time Seen by Provider: 07:30 Subjective/Events-last exam Patient was seen in her room this AM Patient SBA for transfers.progressing well with therapies Patient mildly bradycardic on toprol but discussed with RN continue current dose Date Identified: Jul 20, 2018 Time Identified: 08:00 Medication Intervention: Adjust Toprol if needed due to borderline bradycardia Objective Physician Exam Last Set of Vital Signs Vital Signs Date Time Temp Pulse Resp B/P (MAP) Pulse Ox O2 Delivery O2 Flow Rate FiO2 07/20/18 07:34 55 16 146/62 (90) 100 Room Air 07/20/18 06:08 96.9 07/19/18 20:10 98 Capillary Refill : I&O Intake and Output 07/20/18 00:00 Intake Total 902.5 ml Output Total 1350 ml Balance -447.5 ml Intake Oral 640 ml IV Total 262.5 ml Output Urine Total 1350 ml # Voids 2 General: Alert, Oriented X3, Cooperative, No Acute Distress, Other (knows the month) HEENT: Atraumatic, PERRLA, EOMI, Mucous Memb Moist/Day Neck: Supple, No JVD Lungs: Clear to Auscultation Heart: Regular Rate Abdomen: Normal Bowel Sounds, Soft Extremities: Other (chronic changed both legs with dressing applied) Skin: Other (Chronic wound left shoulder) Neuro: Other (Strength lower limbs 4-/5) Results Lab Data Laboratory Tests 07/17/18 17:30: Vancomycin Level Trough 7.2L Assessment/Plan Assessment and Plan General debil s/p fall with cellulitis rt shoulder and rt leg under treatment with antibiotics Ischemic cardiomyopathy on meds with associated mild bradycardia due to meds Mild cognitive deficits Chronic constipation Glaucoma Plan Continue PT/OT Team Conference tomorrow F/U re duration of IV antibiotics Co-Morbidities that are continuing to impact the rehab process: (include details ) BETH GOOD MD Jul 20, 2018 08:23
--- NOTE | 2018-07-20 08:33 | Individualized Plan of Care ---
Individualized Plan of Care Rehab Nursing IPOC Order Admission Date Jul 16, 2018 at 08:29 Current Orders Orders Admission Arrival Bed Request (07/16/18 08:10) Admission Order(Inpt,Obs,Sdc) (07/16/18 08:36) Pt Evaluate/Treat Request (07/16/18 08:36) Request Ot Evaluate & Treat (07/16/18 08:36) Request For Cognitive Services (07/16/18 08:36) Influenza Quad (5+[place]) 2017- (Afluria (07/16/18 09:00) Code/Resuscitation (07/16/18 08:55) Ambulate 08,12,20 (07/16/18 08:55) Initiate Admission Nursing Pro .admission (07/16/18 08:55) Initiate/Follow Protocol (07/16/18 08:55) Notify Physician: (07/16/18 08:55) Sequential Compression Device ,20 (07/16/18 08:55) Sodium 2g (2000 Mg) (07/16/18 Lunch) Cefepime Injection (Maxipime Injection) (07/16/18 09:00) Contrast Received (Contrast Received) (07/16/18 09:00) Ns Iv 1000 Ml (Sodium Chloride 0.9%) (07/16/18 09:00) Vancomycin Injection (Vancomycin Injecti (07/16/18 09:00) Consult Pulmonology (07/16/18 08:55) Consult Wound Care Physician (07/16/18 08:55) Occupational Therapy Order (07/16/18 08:55) Physical Therapy [place] (07/16/18 08:55) Convex Grinder Consult (07/16/18 08:55) Metoprolol Succinate (Xl) Tab (Toprol Xl (07/16/18 09:00) Lisinopril Tablet (Zestril Tablet) (07/16/18 09:00) Clopidogrel Tablet (Plavix Tablet) (07/16/18 09:00) Aspirin Enteric Coated Tablet (Ecotrin T (07/16/18 09:00) Ascorbic Acid Tablet (Vitamin C Tablet) (07/16/18 09:00) Vancomycin Injection (Vancomycin Injecti (07/16/18 18:30) Cefepime Injection (Maxipime Injection) (07/16/18 17:00) Sodium Chloride Flush (Catheter Flush Sy (07/16/18 09:30) Dvt/Vte Risk - Notifiy Physici 08 (07/16/18 09:22) Advanced Wound Care Dressing O (07/16/18 10:58) Advanced Wound Care Dressing O (07/16/18 10:58) Trough Order (Trough Order-Pharmacy [place] (07/17/18 17:30) Vancomycin,Trough (07/17/18 17:30) Patient Visit (07/16/18 ) Pt Eval Moderate Complexity (07/16/18 ) Functional Activities, Ea 15 (07/16/18 ) Patient Visit (07/16/18 ) Speech Sound Lang Comp (07/16/18 ) Consult Physician (07/17/18 08:27) Patient Visit (07/17/18 ) Functional Activities, Ea 15 (07/17/18 ) Exercise Therap, Ea 15 Min (07/17/18 ) Vancomycin Injection (Vancomycin Injecti (07/18/18 13:00) Magnesium Hydroxide Oral Susp (Mom Oral (07/19/18 10:30) Patient Visit (07/19/18 ) Sp Therapeutic Group (07/19/18 ) Treat. Speech/Lang/Voice (07/19/18 ) Patient Visit (07/19/18 ) Exercise Therap, Ea 15 Min (07/19/18 ) Functional Activities, Ea 15 (07/19/18 ) Gait Training, Ea 15 Min (07/19/18 ) Mat Initiate Protocol (07/20/18 07:02) Rehab Nursing Orders: Disease Management & Educaiton, DVT Prophylaxis, Fall Prevention, Infection Prevention, Medication Management & Education, Management of Risks & Complications, Management of Skin Intergrity, Nutrition Management, Pain Management, Patient/Family Support, Wound Management PT IPOC Problem List: Activity Tolerance, Functional Strength, Safety, Balance, Gait, Transfer Treatment Plan: Continue Plan of Care Bed Mobility, Education, Functional Activity Arely, Functional Strength, Group Therapy, Gait, Safety, Therapeutic Exercise, Transfers Treatment Duration: Jul 30, 2018 Frequency: At least 5 of 7 days/Wk (IRF) Estimated Hrs Per Day: 1.5 hours per day OT IPOC Problems: Decreased Activ Tolerance, Decreased UE Strength, Dependent Transfers , Impaired Funct Balance, Impaired Self-Care Skills OT Treatment, Training and Edu: Yes OT Problems Pt would benefit from skilled OT to increase her independence in basic self care to allow her to safely return home Plan of Care: ADL Retraining, Functional Mobility, Group Exercise/Act as Ind ( education, exercise, funct mobility, act tolerance, socialization), UE Funct Exercise/Act, UE Neuromus Re-Ed/Coord Treatment Duration: Jul 30, 2018 Frequency: At least 5 of 7 days/Wk (IRF) Estimated Hrs Per Day: 1.[address] [facility] Speech Therapy Treatment Plan: Continue Plan of Care Treatment Duration: Jul 23, 2018 Frequency: 5 times per week Estimated Hrs Per Day: .5 hour per day Convex Grinder/Case Mgmt Convex Grinder/Case Managemen: Discharge Planning, Patient/Family Counseling Dietitian/Construction Mgr Dietitian/Construction Mgr to monitor nutritional status and make changes and/or recommendations as needed and work with speech pathology on dietary upgrades as the occur. Physician IPOC Medical Issues being managed closely and that require the 24 hour availability of a physician: Wound care Ischemic cardiomyopathy Chronic constipation Cognitive deficits [facility] code 16 Etiologic Diagnosis Generalized muscle weakness Medical Issues: DVT Prophylaxis, Falls Precautions, Infection Protection, Pain Management, Wound Care, Other (List) (as per above) Brief Synthesis of Preadmission Screen, Post-Admission Evaluation, and Therapy Evaluations: 87 yo female who lives alone and had a fall at home with resulting General debil Referred to IRU for ongoing care and therapies Has a supportive son who looks in on her.Patient sees DR Myers for Ischemic cardiomyopathy with HX of [place] on Toprol.Has mild cognitive deficits.Had been Independent prior to this.Has a wound on rt shoulder and RT leg and on antibiotics for cellulitis Medical Prognosis: Good Anticipated Length of Stay: 12-24-18 Modified Independent for adls and mobility skills Completion of IV antibiotics Anticipated d/c Destination: Home with son and [facility] BETH GOOD MD Jul 20, 2018 08:33
--- NOTE | 2018-07-20 11:12 | Occupational Ther Daily Note ---
OT Current Status-Daily Note Subjective Pt seen in room, up at EOB, agreeable to OT. No pain reported. Appearance Alert, cooperative Mental Status/Objective Therapy Code Descriptions/Definitions Functional [place] Measure: 0=Not Assessed/NA 4=Minimal Assistance 1=Total Assistance 5=Supervision or Setup 2=Maximal Assistance 6=Modified [place] 3=Moderate Assistance 7=Complete [place] ADL-Treatment Pt wanted to shower. Walked SBA to bathroom, FWW, then toileted and transferred in to shower. Pt washed and dried all parts, occasional cues for sequencing ( such as take shoes off before turning water on in shower). Dressed in shower on bench because she doesn't walk without her shoes on. Brushed teeth at sink, FWW , SBA and then walked back to room to sit in recliner, all needs met. Therapy Code Descriptions/Definitions Functional [place] Measure: 0=Not Assessed/NA 4=Minimal Assistance 1=Total Assistance 5=Supervision or Setup 2=Maximal Assistance 6=Modified [place] 3=Moderate Assistance 7=Complete [place] Therapy Quality Codes: 6 Independent with activity with or without an assistive device 5 Patient requires set up or clean up by helper. Patient completes activity by themselves 4 Supervision or touching assist (CGA). [place] provide cues , steadying assist 3 The helper provides less than half the effort to complete the activity 2 The helper provides more than half the effort to complete the activity 1 Dependent. The helper does all the effort to complete an activity 7 Patient refused to complete or attempt activity 9 The patient did not perform the activity before the current illness or injury 88 Not attempted due to Medical conditions or safety concerns Grooming (FIM): 5 (SBA at sink to brush teeth, comb hair. Washed face and hands in shower. FWW) Bathing (FIM): 5 (Washed and dried all parts, supervision, SBA when standing in shower. Shower bench, grab bars, hand held shower. ) Upper Body (FIM): 5 (Doffed and donned clothing with setup, including bra and button up shirt) Lower Body Dressing (FIM): 5 (SBA when standing, setup. Including pants, socks , shoes) Toileting (FIM): 5 (SBA for clothing management, I with hygiene. BSC over toilet, grab bar, FWW) Toilet/Commode Transfer (FIM): 5 (SBA getting on and off BSC over toilet, grab bar, FWW) Shower Transfer(FIM): 5 (SBA getting in and out of shower, on and off bench. Grab bar) Education OT Patient Education: Modified ADL techniques, Progress toward Goal/Update tx plan, Purpose of tx/functional activities, Safety issues Teaching Recipient: Patient Teaching Methods: Demonstration, Discussion Response to Teaching: Verbalize Understanding, Return Demonstration, Reinforcement Needed OT Short Term Goals Short Term Goals Time Frame: Jul 23, 2018 Grooming(FIM): 5 (setup) Lower Body Dressing(FIM): 5 Toileting(FIM): 5 Toilet/Commode Transfer(FIM): 5 1=Demonstrate adherence to instructed precautions during ADL tasks. 2=Patient will verbalize/demonstrate understanding of assistive devices/ modifications for ADL. 3=Patient will improve strength/tolerance for activity to enable patient to perform ADL's. OT Fpc Goals House Painter Helper Goals Time Frame: Jul 30, 2018 Eating (FIM): 6 Eating (QC): 6 Groomin Oral Hygiene (QC): 6 Bathing(FIM): 6 Shower/Bathe Self (QC): 6 Upper Body Dressing(FIM): 6 Upper Body Dressing (QC): 6 Lower Body Dressing(FIM): 6 Lower Body Dressing (QC): 6 On/Off Footwear (QC): 6 Toileting(FIM): 6 Toileting Hygiene (QC): 6 Toilet/Commode Transfer(FIM): 6 Toilet/Commode Transfer (QC): 6 Shower Transfer(FIM): 6 Additional Goals: 1-Demonstrate ADL Tasks, 2-Verbalize Understanding, 3- ImproveStrength/Arely 1=Demonstrate adherence to instructed precautions during ADL tasks. 2=Patient will verbalize/demonstrate understanding of assistive devices/ modifications for ADL. 3=Patient will improve strength/tolerance for activity to enable patient to perform ADL's. OT Education/Plan Problem List/Assessment Pt would benefit from skilled OT to increase her independence in basic self care to allow her to safely return home Discharge Recommendations Plan/Recommendations: Continue POC Treatment Plan/Plan of Care Patient would benefit from OT for education, treatment and training to promote independence in ADL's, mobility, safety and/or upper extremity function for ADL' s. Plan of Care: ADL Retraining, Functional Mobility, Group Exercise/Act as Ind ( education, exercise, funct mobility, act tolerance, socialization), UE Funct Exercise/Act, UE Neuromus Re-Ed/Coord Treatment Duration: Jul 30, 2018 Frequency: At least 5 of 7 days/Wk (IRF) Estimated Hrs Per Day: 1.5 hours per day Agreement: Yes Rehab Potential: Guarded Time/GCodes Start Time: 08:15 Stop Time: 09:00 Total Time Billed (hr/min): 45 Billed Treatment Time visit, 45 minutes ADL PAULA YORK OT Jul 20, 2018 11:12
--- NOTE | 2018-07-20 12:18 | Physical Therapy Daily Note ---
PT Daily Note-Current Subjective Pt sitting in recliner upon arrival. Pt agrees to PT but is very preoccupied with bandage for Wound on RLE. Pain Numeric Pain Scale: 5-Moderate Pain Location: Right Mental Status Patient Orientation: Person, Confused, Place Transfers Therapy Code Descriptions/Definitions Functional [place] Measure: 0=Not Assessed/NA 4=Minimal Assistance 1=Total Assistance 5=Supervision or Setup 2=Maximal Assistance 6=Modified [place] 3=Moderate Assistance 7=Complete [place] Therapy Quality Codes: 6 Independent with activity with or without an assistive device 5 Patient requires set up or clean up by helper. Patient completes activity by themselves 4 Supervision or touching assist (CGA). [place] provide cues , steadying assist 3 The helper provides less than half the effort to complete the activity 2 The helper provides more than half the effort to complete the activity 1 Dependent. The helper does all the effort to complete an activity 7 Patient refused to complete or attempt activity 9 The patient did not perform the activity before the current illness or injury 88 Not attempted due to Medical conditions or safety concerns Scootin Sit to/from Stand: 4 Sit to Stand (QC): 4 Weight Bearing Right Lower Extremity: Right Full Weight Bearing Left Lower Extremity: Left Full Weight Bearing Gait Training Does the Patient Walk?: Yes Distance (FIM): 3=150 ft Distance: 150' Walk 10 feet (QC): 4 Walk 50 ft with 2 Turns(QC): 4 Walk 150 ft (QC): 4 Gait Level of Assist: 4 Gait Persons Needed: 1 Gait Assistive Device: FWW Pt's gait is very slow and stiff. Wheelchair Training Does the Pt Use a Wheelchair?: No Exercises Seated Therapy Exercises: Ankle pumps, Long arc quads, Hip flexion, Kicking activity Seated Reps: 15 NuStep Minutes: 10 NuStep Workload: 4 Treatments Pt transfers from recliner and uses restroom before leaving for tx. Pt ambulates in hallway using FWW at [facility]. Pt uses NuStep for 15m at 4 followed by short rest break. Pt completes Seated Ex. Pt takes short rest before ambulating again in hallway back to room. Pt resting in recliner at end of tx with all needs met. Assessment Current Status: Fair Progress Pt fatigues very quickly. Pt needs frequent rest breaks and reports feeling tired a lot. PT Short Term Goals Short Term Goals Time Frame: Jul 23, 2018 Gait (FIM): 4 PT Strapper Goals Retirement Goals PT Retirement Goals Time Frame: Jul 30, 2018 Transfers (B,C,W/C) (FIM): 7 Sit to Lying (QC): 6 Lying-Sitting on Side/Bed(QC): 6 Sit to Stand (QC): 6 Rollin Roll Left to Right (QC): 6 Chair/Dxu-bt-Hehvh Xfer(QC): 6 Car Transfer (QC): 6 Does the Patient Walk: Yes Gait (FIM): 6 (with FWW or a cane) Gait distance (FIM): 3=150 ft Walk 10 feet (QC): 6 Walk 10ft-Uneven Surface(QC): 6 Walk 50ft with 2 Turns (QC): 6 Walk 150 ft (QC): 6 Gait Assistive Device: FWW (or cane) Does the Pt use WC or Scooter?: No Stairs (FIM): 5 (household level) # of Steps: 4 1 Step (curb) (QC): 6 4 Steps (QC): 6 12 Steps (QC): 88 Picking up an Object (QC): 4 PT Plan Problem List Problem List: Activity Tolerance, Functional Strength, Safety, Balance, Gait, Transfer Treatment/Plan Treatment Plan: Continue Plan of Care Treatment Plan: Bed Mobility, Education, Functional Activity Arely, Functional Strength, Group Therapy, Gait, Safety, Therapeutic Exercise, Transfers Treatment Duration: Jul 30, 2018 Frequency: At least 5 of 7 days/Wk (IRF) Estimated Hrs Per Day: 1.5 hours per day Patient and/or Family Agrees t: Yes Safety Risks/Education Patient Education: Gait Training, Transfer Techniques, Correct Positioning, Safety Issues Teaching Recipient: Patient Teaching Methods: Discussion Response to Teaching: Reinforcement Needed Time/GCodes Time In: 1045 Time Out: 1140 Total Billed Treatment Time: 55 Total Billed Treatment 1, FA (10m), GT x2 (25m) & EX (20m) G Codes Necessary: KELY Jacome PAPER TUBE MACHINE OPERATOR Jul 20, 2018 12:18
--- NOTE | 2018-07-20 14:29 | Occupational Ther Daily Note ---
OT Current Status-Daily Note Subjective Pt seen in room, up in recliner, agreeable to OT. No pain mentioned. Appearance Alert, cooperative Mental Status/Objective Therapy Code Descriptions/Definitions Functional [place] Measure: 0=Not Assessed/NA 4=Minimal Assistance 1=Total Assistance 5=Supervision or Setup 2=Maximal Assistance 6=Modified [place] 3=Moderate Assistance 7=Complete [place] ADL-Treatment Therapy Code Descriptions/Definitions Functional [place] Measure: 0=Not Assessed/NA 4=Minimal Assistance 1=Total Assistance 5=Supervision or Setup 2=Maximal Assistance 6=Modified [place] 3=Moderate Assistance 7=Complete [place] Therapy Quality Codes: 6 Independent with activity with or without an assistive device 5 Patient requires set up or clean up by helper. Patient completes activity by themselves 4 Supervision or touching assist (CGA). [place] provide cues , steadying assist 3 The helper provides less than half the effort to complete the activity 2 The helper provides more than half the effort to complete the activity 1 Dependent. The helper does all the effort to complete an activity 7 Patient refused to complete or attempt activity 9 The patient did not perform the activity before the current illness or injury 88 Not attempted due to Medical conditions or safety concerns Other Treatment Pt education on 5 different bilat UE exercises with yellow theraband. Provided written instructions and went over them with pt as she did the exercises. Skilled cues as needed to do the exercises correctly. She completed 10 reps of each exercise, tracking the repetitions herself but having a little trouble when she had to switch sides. She then did 3 reps of each ex, looking at the handout and trying it without cues. To help strengthen arms to help with transfers and with ADLs. Pt left up in recliner, all needs met. Education OT Patient Education: Exercise program, Purpose of tx/functional activities Teaching Recipient: Patient Teaching Methods: Demonstration, Discussion Response to Teaching: Verbalize Understanding, Return Demonstration, Reinforcement Needed OT Short Term Goals Short Term Goals Time Frame: Jul 23, 2018 Grooming(FIM): 5 (setup) Lower Body Dressing(FIM): 5 Toileting(FIM): 5 Toilet/Commode Transfer(FIM): 5 1=Demonstrate adherence to instructed precautions during ADL tasks. 2=Patient will verbalize/demonstrate understanding of assistive devices/ modifications for ADL. 3=Patient will improve strength/tolerance for activity to enable patient to perform ADL's. OT General Magistrate Goals Residential Goals Time Frame: Jul 30, 2018 Eating (FIM): 6 Eating (QC): 6 Groomin Oral Hygiene (QC): 6 Bathing(FIM): 6 Shower/Bathe Self (QC): 6 Upper Body Dressing(FIM): 6 Upper Body Dressing (QC): 6 Lower Body Dressing(FIM): 6 Lower Body Dressing (QC): 6 On/Off Footwear (QC): 6 Toileting(FIM): 6 Toileting Hygiene (QC): 6 Toilet/Commode Transfer(FIM): 6 Toilet/Commode Transfer (QC): 6 Shower Transfer(FIM): 6 Additional Goals: 1-Demonstrate ADL Tasks, 2-Verbalize Understanding, 3- ImproveStrength/Arely 1=Demonstrate adherence to instructed precautions during ADL tasks. 2=Patient will verbalize/demonstrate understanding of assistive devices/ modifications for ADL. 3=Patient will improve strength/tolerance for activity to enable patient to perform ADL's. OT Education/Plan Problem List/Assessment Pt would benefit from skilled OT to increase her independence in basic self care to allow her to safely return home Discharge Recommendations Plan/Recommendations: Continue POC Treatment Plan/Plan of Care Patient would benefit from OT for education, treatment and training to promote independence in ADL's, mobility, safety and/or upper extremity function for ADL' s. Plan of Care: ADL Retraining, Functional Mobility, Group Exercise/Act as Ind ( education, exercise, funct mobility, act tolerance, socialization), UE Funct Exercise/Act, UE Neuromus Re-Ed/Coord Treatment Duration: Jul 30, 2018 Frequency: At least 5 of 7 days/Wk (IRF) Estimated Hrs Per Day: 1.5 hours per day Agreement: Yes Rehab Potential: Guarded Time/GCodes Start Time: 13:00 Stop Time: 13:30 Total Time Billed (hr/min): 30 Billed Treatment Time visit, 30 minutes exercise PAULA YORK OT Jul 20, 2018 14:29
--- NOTE | 2018-07-20 14:47 | Speech Therapy Daily Note ---
Speech Daily Progress Note Subjective Date Seen by Provider: Jul 20, 2018 Time Seen by Provider: 00:30 Patient sitting in her recliner resting when I arrived. Patient was alert and participated well with skilled therapy. Objective Patient completed following directions at 75% with moderate verbal directions. Assessment Assessment Current Status: Good Progress Treatment Plan Continue Plan of Care Communication Comprehension: 2 Expression: 2 Social Cognition Social Interaction: 3 Problem Solvin Memory: 2 Speech Short Term Goals Short Term Goals Short Term Goals 1) Patient will increase functional problems solving skills to 90% with minimal verbal cues. 2) Patient will increase memory skills to 90% with compensatory strategies as trained in order to increase safety during daily living tasks. 3) Patient will increase sequencing skills to 90% with minimal verbal cues. Speech Neurology Hospitalist Goals Group Home Goals Patient will improve overall function with memory, problem solving and auditory comprehension to be safe in her living environment. Speech-Plan Patient/Family Goals Patient/Family Goals: Patient plans to return home with her son's support post rehab. Treatment Plan Speech Therapy Treatment Plan: Continue Plan of Care Patient is acclimated to the therapy unit. Treatment Duration: Jul 23, 2018 Frequency: 5 times per week Estimated Hrs Per Day: .5 hour per day Rehab Potential: Guarded Barriers to Learning: Patient has memory and problem solving deficits. Pt/Family Agrees to Plan: Yes Safety Risks/Education Teaching Recipient: Patient Teaching Methods: Discussion Response to Teaching: Verbalize Understanding Education Topics Provided: Safety and utilization of her call light as needed. Time Speech Therapy Time In: 13:30 Speech Therapy Time Out: 14:00 Total Billed Time: 30 Billed Treatment Time [address] Jul 20, 2018 14:47
[2018-07-20 16:03] VITALS: BP 150/78
--- NOTE | 2018-07-20 16:36 | Physical Therapy Daily Note ---
PT Daily Note-Current Subjective Pt sitting in recliner upon arrival. Pt reports feeling tired but agrees to limited PT. Mental Status Patient Orientation: Person, Confused, Place Transfers Therapy Code Descriptions/Definitions Functional [place] Measure: 0=Not Assessed/NA 4=Minimal Assistance 1=Total Assistance 5=Supervision or Setup 2=Maximal Assistance 6=Modified [place] 3=Moderate Assistance 7=Complete [place] Therapy Quality Codes: 6 Independent with activity with or without an assistive device 5 Patient requires set up or clean up by helper. Patient completes activity by themselves 4 Supervision or touching assist (CGA). [place] provide cues , steadying assist 3 The helper provides less than half the effort to complete the activity 2 The helper provides more than half the effort to complete the activity 1 Dependent. The helper does all the effort to complete an activity 7 Patient refused to complete or attempt activity 9 The patient did not perform the activity before the current illness or injury 88 Not attempted due to Medical conditions or safety concerns Weight Bearing Right Lower Extremity: Right Full Weight Bearing Left Lower Extremity: Left Full Weight Bearing Exercises Supine Ex: Ankle pumps, Quad Set, Glut sets, Straight leg raise Supine Reps: 15 Treatments Pt completes Supine Ex in recliner with short rest breaks. Pt resting in recliner with all needs met at end of tx. Assessment Current Status: Fair Progress Pt fatigues easily and seems more confused this afternoon. PT Short Term Goals Short Term Goals Time Frame: Jul 23, 2018 Gait (FIM): 4 PT Penitentiary Goals Penitentiary Goals PT Penitentiary Goals Time Frame: Jul 30, 2018 Transfers (B,C,W/C) (FIM): 7 Sit to Lying (QC): 6 Lying-Sitting on Side/Bed(QC): 6 Sit to Stand (QC): 6 Rollin Roll Left to Right (QC): 6 Chair/Chr-lr-Uoejq Xfer(QC): 6 Car Transfer (QC): 6 Does the Patient Walk: Yes Gait (FIM): 6 (with FWW or a cane) Gait distance (FIM): 3=150 ft Walk 10 feet (QC): 6 Walk 10ft-Uneven Surface(QC): 6 Walk 50ft with 2 Turns (QC): 6 Walk 150 ft (QC): 6 Gait Assistive Device: FWW (or cane) Does the Pt use WC or Scooter?: No Stairs (FIM): 5 (household level) # of Steps: 4 1 Step (curb) (QC): 6 4 Steps (QC): 6 12 Steps (QC): 88 Picking up an Object (QC): 4 PT Plan Problem List Problem List: Activity Tolerance, Functional Strength, Safety Treatment/Plan Treatment Plan: Continue Plan of Care Treatment Plan: Bed Mobility, Education, Functional Activity Arely, Functional Strength, Group Therapy, Gait, Safety, Therapeutic Exercise, Transfers Treatment Duration: Jul 30, 2018 Frequency: At least 5 of 7 days/Wk (IRF) Estimated Hrs Per Day: 1.5 hours per day Patient and/or Family Agrees t: Yes Safety Risks/Education Patient Education: Correct Positioning, Safety Issues Teaching Recipient: Patient Teaching Methods: Discussion Response to Teaching: Reinforcement Needed Time/GCodes Time In: 1500 Time Out: 1520 Total Billed Treatment Time: 20 Total Billed Treatment 1, EX (20m) G Codes Necessary: KELY Jacome PRODUCTION CLERKS SUPERVISOR Jul 20, 2018 16:36
--- NOTE | 2018-07-20 17:06 | Podiatry Progress Note ---
Standard Progress Note Progress Notes/Assess & Plan Date Seen by a Provider: Jul 20, 2018 Time Seen by a Provider: 17:05 Progress/Assessment & Plan Consult dictated, foot care given. Final Diagnosis Onychomycosis, Hyperkeratotic lesions, Peripheral Neuropathy, PVD AKBAR WILLIAM DPM Jul 20, 2018 17:06
--- NOTE | 2018-07-20 23:21 | CONSULTATION REPORT ---
DATE OF SERVICE: 07/20/2018 REASON FOR CONSULTATION: Foot care. HISTORY OF PRESENT ILLNESS: This 87-year-old female was admitted through the ER after a fall at home. She has had difficulty reaching and caring for her feet. She does live alone and has a son that will look in on her on occasion. She has had a chronic wound to her shoulder as well as to the right lower leg for which wound care has been done in [place]. PAST MEDICAL HISTORY: Chronic wounds, cardiomyopathy and myocardial infarction. PAST SURGICAL HISTORY: She denies past surgeries. ALLERGIES: She is allergic to AMOXICILLIN. SOCIAL HISTORY: The patient lives alone in [place]. Denies tobacco use, alcohol or illicit drug use. PHYSICAL EXAMINATION: GENERAL: This is a well-developed female, in no apparent distress. EXTREMITIES: She has 2/4 dorsalis pedis pulse on the right, 0/4 on the left, 0/4 posterior tibial pulse on the right and 1/4 posterior tibial pulse, left. NEUROLOGIC: The patient has intact protective sensation per 10-g monofilament wire examination bilaterally. She has diminished vibratory sensation to the forefoot bilaterally. Dermatologically, she has a hyperkeratotic lesion to the plantar aspect of left first metatarsal head as well as left heel. The lesion to the left heels without skin lines, but there is no pinpoint bleeding with debridement. There is thick yellow dystrophic toenails with subungual debris R1, 2 and L1, 2 four digits. MUSCULOSKELETAL: She has 4/5 muscle strength to the four major quadrants of the foot. She has diminished dorsiflexion at the ankle joint bilaterally. ASSESSMENT: 1. Idiopathic neuropathy. 2. Atherosclerosis. 3. Onychomycosis. 4. Corns and calluses. PLAN: Various treatment options were discussed with the patient. Her hyperkeratotic lesions were debrided to the left heel as well as the left first metatarsal head area. Betadine applied. We debrided her toenails manually and mechanically. Betadine applied. She was invited to follow up in our office upon discharge for further foot care as needed. Overall, foot care and shoe fit was discussed. Job ID: [id number] DocumentID: [id number] Dictated Date: 07/20/2018 17:05:03 Imaging Technician Date: 07/20/2018 23:20:26 Dictated By: KABAR WILLIAM DPM
[2018-07-21 05:38] VITALS: BP 140/60
[2018-07-21 08:11] VITALS: BP 103/53
[2018-07-21] MEDS: ASPIRIN E.C. 81 MG (ECOTRIN) TAB PO SCH (08:13)
[2018-07-21] MEDS: ASCORBIC ACID (VIT C) 500 MG TABLET PO SCH (08:13)
[2018-07-21] MEDS: lisINopril 5 MG (PRINIVIL) TABLET PO SCH (08:13)
[2018-07-21] MEDS: CLOPIDOGREL 75 MG (PLAVIX) TABLET PO SCH (08:13)
--- NOTE | 2018-07-21 11:20 | Physical Therapy Daily Note ---
PT Daily Note-Current Subjective Pt sitting in recliner upon arrival. Pt agrees to PT. Pt reports feeling tired although this is a regular occurrence for pt. Mental Status Patient Orientation: Person, Confused, Place Transfers Therapy Code Descriptions/Definitions Functional [place] Measure: 0=Not Assessed/NA 4=Minimal Assistance 1=Total Assistance 5=Supervision or Setup 2=Maximal Assistance 6=Modified [place] 3=Moderate Assistance 7=Complete [place] Therapy Quality Codes: 6 Independent with activity with or without an assistive device 5 Patient requires set up or clean up by helper. Patient completes activity by themselves 4 Supervision or touching assist (CGA). [place] provide cues , steadying assist 3 The helper provides less than half the effort to complete the activity 2 The helper provides more than half the effort to complete the activity 1 Dependent. The helper does all the effort to complete an activity 7 Patient refused to complete or attempt activity 9 The patient did not perform the activity before the current illness or injury 88 Not attempted due to Medical conditions or safety concerns Sc[place]in Sit to/from Stand: 5 Sit to Stand (QC): 5 Weight Bearing Right Lower Extremity: Right Full Weight Bearing Left Lower Extremity: Left Full Weight Bearing Gait Training Does the Patient Walk?: Yes Distance (FIM): 3=150 ft Distance: 150' Walk 10 feet (QC): 5 Walk 50 ft with 2 Turns(QC): 5 Walk 150 ft (QC): 5 Gait Level of Assist: 5 Gait Persons Needed: 1 Gait Assistive Device: FWW Pt's prasanth is very slow and fatigues easily. Wheelchair Training Does the Pt Use a Wheelchair?: No Exercises Seated Therapy Exercises: Ankle pumps, Long arc quads, Hip flexion, Kicking activity, Hip abd/add Seated Reps: 15 Treatments Pt transfers from recliner to standing using FWW at [facility]. Pt ambulates in hallway using FWW at [facility]. Pt completes Seated Ex in chair in Therapy Gym. Pt returns to room to use restroom and order lunch. Pt resting in recliner at end of tx with all needs met. Assessment Current Status: Fair Progress Pt fatigues easily and needs frequent and extended time to recover. PT Short Term Goals Short Term Goals Time Frame: Jul 23, 2018 Gait (FIM): 4 PT Jail Goals Senior Analyst Programmer Goals PT Jail Goals Time Frame: Jul 30, 2018 Transfers (B,C,W/C) (FIM): 7 Sit to Lying (QC): 6 Lying-Sitting on Side/Bed(QC): 6 Sit to Stand (QC): 6 Rollin Roll Left to Right (QC): 6 Chair/Sgn-nx-Awmbj Xfer(QC): 6 Car Transfer (QC): 6 Does the Patient Walk: Yes Gait (FIM): 6 (with FWW or a cane) Gait distance (FIM): 3=150 ft Walk 10 feet (QC): 6 Walk 10ft-Uneven Surface(QC): 6 Walk 50ft with 2 Turns (QC): 6 Walk 150 ft (QC): 6 Gait Assistive Device: FWW (or cane) Does the Pt use WC or Scooter?: No Stairs (FIM): 5 (household level) # of Steps: 4 1 Step (curb) (QC): 6 4 Steps (QC): 6 12 Steps (QC): 88 Picking up an Object (QC): 4 PT Plan Problem List Problem List: Activity Tolerance, Functional Strength, Safety, Balance, Gait Treatment/Plan Treatment Plan: Continue Plan of Care Treatment Plan: Bed Mobility, Education, Functional Activity Arely, Functional Strength, Group Therapy, Gait, Safety, Therapeutic Exercise, Transfers Treatment Duration: Jul 30, 2018 Frequency: At least 5 of 7 days/Wk (IRF) Estimated Hrs Per Day: 1.5 hours per day Patient and/or Family Agrees t: Yes Safety Risks/Education Patient Education: Gait Training, Transfer Techniques, Correct Positioning, Safety Issues Teaching Recipient: Patient Teaching Methods: Discussion Response to Teaching: Verbalize Understanding Time/GCodes Time In: 1015 Time Out: 1100 Total Billed Treatment Time: 45 Total Billed Treatment 1, GT (20m), EX (15m) & FA (10m) G Codes Necessary: No KELY ALFARO PTA Jul 21, 2018 11:20
--- NOTE | 2018-07-21 13:17 | Occupational Ther Daily Note ---
OT Current Status-Daily Note Subjective Pt. does not report pain level. Appearance Pt. up in chair. Declines showering but agrees to spongebathe. Mental Status/Objective Patient Orientation: Person, Unable to Assess Therapy Code Descriptions/Definitions Functional [place] Measure: 0=Not Assessed/NA 4=Minimal Assistance 1=Total Assistance 5=Supervision or Setup 2=Maximal Assistance 6=Modified [place] 3=Moderate Assistance 7=Complete Holmes ADL-Treatment Therapy Code Descriptions/Definitions Functional [place] Measure: 0=Not Assessed/NA 4=Minimal Assistance 1=Total Assistance 5=Supervision or Setup 2=Maximal Assistance 6=Modified [place] 3=Moderate Assistance 7=Complete [place] Therapy Quality Codes: 6 Independent with activity with or without an assistive device 5 Patient requires set up or clean up by helper. Patient completes activity by themselves 4 Supervision or touching assist (CGA). [place] provide cues , steadying assist 3 The helper provides less than half the effort to complete the activity 2 The helper provides more than half the effort to complete the activity 1 Dependent. The helper does all the effort to complete an activity 7 Patient refused to complete or attempt activity 9 The patient did not perform the activity before the current illness or injury 88 Not attempted due to Medical conditions or safety concerns Grooming (FIM): 5 (SBA while standing at sink.) Oral Hygiene (QC): 4 Bathing (FIM): 5 (SBA while seated in chair.) Shower/Bathe Self (QC): 4 Upper Body (FIM): 5 Upper Body Dressing (QC): 4 Lower Body Dressing (FIM): 5 (SBA to don slip, underwear, skirt, and shoes.) Lower Body Dressing (QC): 4 On/Off Footwear (QC): 4 Transfers (B, C, W/C) (FIM): 5 (SBA to stand from chair. SBA with walker to ambulate to bathroom.) Pt. completes ADLs but requires cues to sequence steps with ADLs. Pt. ambulates to dining area after ADLs in room. Pt. requires SBA to ambulate to dining area. Pt. requires rest break in dining area and then ambulated back to room with SBA. All needs met. Education OT Patient Education: Correct positioning, Modified ADL techniques, Progress toward Goal/Update tx plan, Purpose of tx/functional activities, Reviewed precautions, Rehab process, Transfer techniques Teaching Recipient: Patient Teaching Methods: Demonstration, Discussion Response to Teaching: Verbalize Understanding, Return Demonstration OT Short Term Goals Short Term Goals Time Frame: Jul 23, 2018 Grooming(FIM): 5 (setup) Lower Body Dressing(FIM): 5 Toileting(FIM): 5 Toilet/Commode Transfer(FIM): 5 1=Demonstrate adherence to instructed precautions during ADL tasks. 2=Patient will verbalize/demonstrate understanding of assistive devices/ modifications for ADL. 3=Patient will improve strength/tolerance for activity to enable patient to perform ADL's. OT [facility] Goals Instrument Repair Supervisor Goals Time Frame: Jul 30, 2018 Eating (FIM): 6 Eating (QC): 6 Groomin Oral Hygiene (QC): 6 Bathing(FIM): 6 Shower/Bathe Self (QC): 6 Upper Body Dressing(FIM): 6 Upper Body Dressing (QC): 6 Lower Body Dressing(FIM): 6 Lower Body Dressing (QC): 6 On/Off Footwear (QC): 6 Toileting(FIM): 6 Toileting Hygiene (QC): 6 Toilet/Commode Transfer(FIM): 6 Toilet/Commode Transfer (QC): 6 Shower Transfer(FIM): 6 Additional Goals: 1-Demonstrate ADL Tasks, 2-Verbalize Understanding, 3- ImproveStrength/Arely 1=Demonstrate adherence to instructed precautions during ADL tasks. 2=Patient will verbalize/demonstrate understanding of assistive devices/ modifications for ADL. 3=Patient will improve strength/tolerance for activity to enable patient to perform ADL's. OT Education/Plan Problem List/Assessment Assessment: Decreased Activ Tolerance, Decreased UE Strength, Dependent Transfers, Impaired Cognition, Impaired I ADL's, Impaired Self-Care Skills Pt would benefit from skilled OT to increase her independence in basic self care to allow her to safely return home Discharge Recommendations Plan/Recommendations: Continue POC Therapy D/C Recommendations: Assisted Living Treatment Plan/Plan of Care Treatment,Training & Education: Yes Patient would benefit from OT for education, treatment and training to promote independence in ADL's, mobility, safety and/or upper extremity function for ADL' s. Plan of Care: ADL Retraining, Functional Mobility, Group Exercise/Act as Ind ( education, exercise, funct mobility, act tolerance, socialization), UE Funct Exercise/Act, UE Neuromus Re-Ed/Coord Treatment Duration: Jul 30, 2018 Frequency: At least 5 of 7 days/Wk (IRF) Estimated Hrs Per Day: 1.5 hours per day Agreement: Yes Rehab Potential: Guarded Time/GCodes Start Time: 08:30 Stop Time: 09:15 Total Time Billed (hr/min): 45 Billed Treatment Time 1, ADL x 3 YADI PINK OT Jul 21, 2018 13:17
--- NOTE | 2018-07-21 14:39 | Therapy Group Daily Note ---
Therapy Daily Group Note Patient Education Topic Home Safety Exercises LE Seated Exercise, UE Exercise Other/Notes Pt ambulated to PT/OT Group using FWW at [facility]. Group consisted of Introduction ( Name, Where you were born & Favorite [place] Movie), Socialization, Patient led Seated UE & LE Exercises, ARU Description & Explanation as well as Home Safety. Pt passively participated in Group and only responded when specifically asked questions directed at her. Pt has flat affect. Pt returns to room to rest at end of tx with all needs met. Start Time: 13:00 Stop Time: 14:10 Total Billed Treatment Time: 70 Total Billed Treatment 1, GRP (70m) ANGELINACASSIKELY CASCADE OPERATOR Jul 21, 2018 14:39
--- NOTE | 2018-07-21 15:14 | Speech Therapy Daily Note ---
Speech Daily Progress Note Subjective Date Seen by Provider: Jul 21, 2018 Time Seen by Provider: 00:30 Patient pleasant and cooperative. Objective Patient completed exercises in sequencing/following directions at 70% with moderate verbal cues and/or repetitions. Assessment Assessment Current Status: Fair Progress Treatment Plan Continue Plan of Care Communication Comprehension: 2 Expression: 2 Social Cognition Social Interaction: 3 Problem Solvin Memory: 2 Speech Short Term Goals Short Term Goals Short Term Goals 1) Patient will increase functional problems solving skills to 90% with minimal verbal cues. 2) Patient will increase memory skills to 90% with compensatory strategies as trained in order to increase safety during daily living tasks. 3) Patient will increase sequencing skills to 90% with minimal verbal cues. Speech Long-Term Goals Marketing Representative Goals Patient will improve overall function with memory, problem solving and auditory comprehension to be safe in her living environment. Speech-Plan Patient/Family Goals Patient/Family Goals: Patient plans to return home with her son on 07/26/2018. Treatment Plan Speech Therapy Treatment Plan: Continue Plan of Care Patient is making slight progress with skilled ST services. Treatment Duration: Jul 23, 2018 Frequency: 5 times per week Estimated Hrs Per Day: .5 hour per day Rehab Potential: Guarded Barriers to Learning: Patient's memory deficit. Pt/Family Agrees to Plan: Yes Safety Risks/Education Teaching Recipient: Patient Teaching Methods: Discussion Response to Teaching: Verbalize Understanding Education Topics Provided: Safety and discussion of sequencing for daily tasks. Time Speech Therapy Time In: 11:30 Speech Therapy Time Out: 12:00 Total Billed Time: 30 Billed Treatment Time 1, MAGALI Perdomo Jul 21, 2018 15:14
[2018-07-21 18:22] VITALS: BP 166/70
--- NOTE | 2018-07-21 19:21 | PM & R (SOAP) Progress Note ---
Subjective This was a face to face visit with the patient. Date Seen by Provider: Jul 21, 2018 Time Seen by Provider: 07:50 Subjective/Events-last exam Patient was seen in her room this AM Progressing well with therapies Appreciate DR Corcoran note DPM.Patient SBA for transfers Review of Systems Neurological: Weakness Objective Physician Exam Last Set of Vital Signs Vital Signs Date Time Temp Pulse Resp B/P (MAP) Pulse Ox O2 Delivery O2 Flow Rate FiO2 07/21/18 18:22 97.1 61 18 166/70 (102) 97 Room Air 07/19/18 20:10 98 Capillary Refill : I&O Intake and Output 07/21/18 00:00 Intake Total 590 ml Output Total 1600 ml Balance -1010 ml Intake Oral 590 ml Output Urine Total 1600 ml # Voids 2 # Bowel Movements 1 General: Alert, Oriented X3, Cooperative, No Acute Distress, Other (knows the month) HEENT: Atraumatic, PERRLA, EOMI, Mucous Memb Moist/Everest Neck: Supple, No JVD Lungs: Clear to Auscultation Heart: Regular Rate Abdomen: Normal Bowel Sounds, Soft Extremities: Other (chronic changed both legs with dressing applied) Skin: Other (Chronic wound left shoulder) Neuro: Other (Strength lower limbs 4-/5) Assessment/Plan Assessment and Plan General debil s/p fall with cellulitis rt shoulder and rt leg under treatment being followed by Wound care healing completd course of IV antibiotics Ischemic cardiomyopathy on meds followed by Dr Myers Mild cognitive deficits Chronic constipation Glaucoma Mild bradycardia due to meds HX of [place] followed by DR Myers Plan Continue PT/OT Team Conference held earlier today-see report for full functional update and POC Discharge set for 07/26/18 Co-Morbidities that are continuing to impact the rehab process: (include details ) BETH GOOD MD Jul 21, 2018 19:21
[2018-07-22 06:45] VITALS: BP 150/62
[2018-07-22 08:10] VITALS: BP 127/73
[2018-07-22] MEDS: CLOPIDOGREL 75 MG (PLAVIX) TABLET PO SCH (08:11)
[2018-07-22] MEDS: ASPIRIN E.C. 81 MG (ECOTRIN) TAB PO SCH (08:11)
[2018-07-22] MEDS: ASCORBIC ACID (VIT C) 500 MG TABLET PO SCH (08:11)
[2018-07-22] MEDS: lisINopril 5 MG (PRINIVIL) TABLET PO SCH (08:12)
--- NOTE | 2018-07-22 08:53 | PM & R (SOAP) Progress Note ---
Subjective This was a face to face visit with the patient. Date Seen by Provider: Jul 22, 2018 Time Seen by Provider: 07:50 Subjective/Events-last exam Patient was seen in her room this AM Patient SBA for transfers Date Identified: Jul 22, 2018 Time Identified: 08:45 Medication Intervention: Current meds reviewed Objective Physician Exam Last Set of Vital Signs Vital Signs Date Time Temp Pulse Resp B/P (MAP) Pulse Ox O2 Delivery O2 Flow Rate FiO2 07/22/18 06:45 97.0 60 20 150/62 (91) 96 Room Air 07/19/18 20:10 98 Capillary Refill : I&O Intake and Output 07/22/18 00:00 Intake Total 1045 ml Balance 1045 ml Intake Oral 1045 ml # Voids 6 # Bowel Movements 1 General: Alert, Oriented X3, Cooperative, No Acute Distress, Other (knows the month) HEENT: Atraumatic, PERRLA, EOMI, Mucous Memb Moist/[place] Neck: Supple, No JVD Lungs: Clear to Auscultation Heart: Regular Rate Abdomen: Normal Bowel Sounds, Soft Extremities: Other (chronic changed both legs with dressing applied) Skin: Other (Chronic wound left shoulder) Neuro: Other (Strength lower limbs 4-/5) Assessment/Plan Assessment and Plan General debil s/p fall with cellulitis rt shoulder and rt leg under treatment followed by Wound care center in [place] completed course of IV antibiotics Ischemic cardiomyopathy followed by DR Myers Mild cognitive deficits Chronic constipation Mild bradycardia due to meds HX of [place] followed by Dr Myers Plan Continue PT/OT Discharge planned for Thursday07/26/18 Current meds reviewed Patients son requesting f/u noninvasive arterial vascular study prior to discharge due to rt leg pain-will f/u with RN See orders Team Conference held yesterday-See report for full functional update and POC Co-Morbidities that are continuing to impact the rehab process: (include details ) BETH GOOD MD Jul 22, 2018 08:53
--- NOTE | 2018-07-22 10:59 | Physical Therapy Daily Note ---
PT Daily Note-Current Subjective Pt sitting in recliner upon arrival. Pt agrees to PT. Mental Status Patient Orientation: Person, Place, Situation Transfers Therapy Code Descriptions/Definitions Functional [place] Measure: 0=Not Assessed/NA 4=Minimal Assistance 1=Total Assistance 5=Supervision or Setup 2=Maximal Assistance 6=Modified [place] 3=Moderate Assistance 7=Complete [place] Therapy Quality Codes: 6 Independent with activity with or without an assistive device 5 Patient requires set up or clean up by helper. Patient completes activity by themselves 4 Supervision or touching assist (CGA). [place] provide cues , steadying assist 3 The helper provides less than half the effort to complete the activity 2 The helper provides more than half the effort to complete the activity 1 Dependent. The helper does all the effort to complete an activity 7 Patient refused to complete or attempt activity 9 The patient did not perform the activity before the current illness or injury 88 Not attempted due to Medical conditions or safety concerns Scootin Sit to/from Stand: 5 Sit to Stand (QC): 5 Weight Bearing Right Lower Extremity: Right Full Weight Bearing Left Lower Extremity: Left Full Weight Bearing Gait Training Does the Patient Walk?: Yes Distance (FIM): 3=150 ft Distance: 175' Walk 10 feet (QC): 5 Walk 50 ft with 2 Turns(QC): 5 Walk 150 ft (QC): 5 Gait Level of Assist: 5 Gait Persons Needed: 1 Gait Assistive Device: FWW Pt has very slow prasanth and fatigues easily. Wheelchair Training Does the Pt Use a Wheelchair?: No Exercises Seated Therapy Exercises: Ankle pumps, Long arc quads, Hip flexion, Kicking activity, Hip abd/add Seated Reps: 15 Treatments Pt transfers from recliner to standing using FWW at [facility]. Pt ambulates in hallway using FWW at [facility]. After a short rest, Pt completes Seated Ex with short rest breaks. Pt returns to room to use restroom then rest in recliner at end of tx with all needs met. Assessment Pt continues to limit self and fatigues easily. PT Short Term Goals Short Term Goals Time Frame: Jul 23, 2018 Gait (FIM): 4 PT Manager Hematology Goals Manager Hematology Goals PT Manager Hematology Goals Time Frame: Jul 30, 2018 Transfers (B,C,W/C) (FIM): 7 Sit to Lying (QC): 6 Lying-Sitting on Side/Bed(QC): 6 Sit to Stand (QC): 6 Rollin Roll Left to Right (QC): 6 Chair/[id number] Xfer(QC): 6 Car Transfer (QC): 6 Does the Patient Walk: Yes Gait (FIM): 6 (with FWW or a cane) Gait distance (FIM): 3=150 ft Walk 10 feet (QC): 6 Walk 10ft-Uneven Surface(QC): 6 Walk 50ft with 2 Turns (QC): 6 Walk 150 ft (QC): 6 Gait Assistive Device: FWW (or cane) Does the Pt use WC or Scooter?: No Stairs (FIM): 5 (household level) # of Steps: 4 1 Step (curb) (QC): 6 4 Steps (QC): 6 12 Steps (QC): 88 Picking up an Object (QC): 4 PT Plan Problem List Problem List: Activity Tolerance, Functional Strength, Safety Treatment/Plan Treatment Plan: Continue Plan of Care Treatment Plan: Bed Mobility, Education, Functional Activity Arely, Functional Strength, Group Therapy, Gait, Safety, Therapeutic Exercise, Transfers Treatment Duration: Jul 30, 2018 Frequency: At least 5 of 7 days/Wk (IRF) Estimated Hrs Per Day: 1.5 hours per day Patient and/or Family Agrees t: Yes Safety Risks/Education Patient Education: Gait Training, Transfer Techniques, Correct Positioning, Safety Issues Teaching Recipient: Patient Teaching Methods: Discussion Response to Teaching: Verbalize Understanding Time/GCodes Time In: 1000 Time Out: 1045 Total Billed Treatment Time: 45 Total Billed Treatment 1, GT (15m), FA (15m) & EX (15m) G Codes Necessary: KELY Jacome PTA Jul 22, 2018 10:59
--- NOTE | 2018-07-22 11:18 | Occupational Ther Daily Note ---
OT Current Status-Daily Note Subjective No pain reported. Appearance Pt. is up in chair when OT enters room. Agrees to shower. Mental Status/Objective Patient Orientation: Person Therapy Code Descriptions/Definitions Functional [place] Measure: 0=Not Assessed/NA 4=Minimal Assistance 1=Total Assistance 5=Supervision or Setup 2=Maximal Assistance 6=Modified [place] 3=Moderate Assistance 7=Complete [place] ADL-Treatment Therapy Code Descriptions/Definitions Functional [place] Measure: 0=Not Assessed/NA 4=Minimal Assistance 1=Total Assistance 5=Supervision or Setup 2=Maximal Assistance 6=Modified [place] 3=Moderate Assistance 7=Complete [place] Therapy Quality Codes: 6 Independent with activity with or without an assistive device 5 Patient requires set up or clean up by helper. Patient completes activity by themselves 4 Supervision or touching assist (CGA). [place] provide cues , steadying assist 3 The helper provides less than half the effort to complete the activity 2 The helper provides more than half the effort to complete the activity 1 Dependent. The helper does all the effort to complete an activity 7 Patient refused to complete or attempt activity 9 The patient did not perform the activity before the current illness or injury 88 Not attempted due to Medical conditions or safety concerns Grooming (FIM): 5 (SBA at sink in stance to brush hair. Declines brushing teeth at this time. States she will do it later.) Bathing (FIM): 5 (SBA to shower all parts.) Shower/Bathe Self (QC): 4 Upper Body (FIM): 5 Upper Body Dressing (QC): 4 Lower Body Dressing (FIM): 5 Lower Body Dressing (QC): 4 On/Off Footwear (QC): 4 Transfers (B, C, W/C) (FIM): 5 (SBA to stand and transfer. SBA with walker to ambulate.) Shower Transfer(FIM): 5 Other Treatment Pt. is able to do all tasks with SBA. However, needs constant instruction to do the next thing. For example, will put on brief but needs cues to stand and pull it up. Once standing, needs cues to sit back down. Pt. states that she doesn't want to brush her teeth right now, but is unable to state why. Pt. demonstrates flat affect and requires prompting to complete tasks. Pt. back in her chair with all needs met after treatment. Education OT Patient Education: Correct positioning, Modified ADL techniques, Progress toward Goal/Update tx plan, Purpose of tx/functional activities, Reviewed precautions, Rehab process, Transfer techniques Teaching Recipient: Patient Teaching Methods: Demonstration, Discussion Response to Teaching: Verbalize Understanding, Return Demonstration OT Short Term Goals Short Term Goals Time Frame: Jul 23, 2018 Grooming(FIM): 5 (setup) Lower Body Dressing(FIM): 5 Toileting(FIM): 5 Toilet/Commode Transfer(FIM): 5 1=Demonstrate adherence to instructed precautions during ADL tasks. 2=Patient will verbalize/demonstrate understanding of assistive devices/ modifications for ADL. 3=Patient will improve strength/tolerance for activity to enable patient to perform ADL's. OT Skilled Nursing Goals Skilled Nursing Goals Time Frame: Jul 30, 2018 Eating (FIM): 6 Eating (QC): 6 Groomin Oral Hygiene (QC): 6 Bathing(FIM): 6 Shower/Bathe Self (QC): 6 Upper Body Dressing(FIM): 6 Upper Body Dressing (QC): 6 Lower Body Dressing(FIM): 6 Lower Body Dressing (QC): 6 On/Off Footwear (QC): 6 Toileting(FIM): 6 Toileting Hygiene (QC): 6 Toilet/Commode Transfer(FIM): 6 Toilet/Commode Transfer (QC): 6 Shower Transfer(FIM): 6 Additional Goals: 1-Demonstrate ADL Tasks, 2-Verbalize Understanding, 3- ImproveStrength/Arely 1=Demonstrate adherence to instructed precautions during ADL tasks. 2=Patient will verbalize/demonstrate understanding of assistive devices/ modifications for ADL. 3=Patient will improve strength/tolerance for activity to enable patient to perform ADL's. OT Education/Plan Problem List/Assessment Assessment: Decreased Activ Tolerance, Decreased UE Strength, Impaired Cognition, Impaired I ADL's, Impaired Self-Care Skills Pt would benefit from skilled OT to increase her independence in basic self care to allow her to safely return home Discharge Recommendations Plan/Recommendations: Continue POC Therapy D/C Recommendations: Assisted Living Treatment Plan/Plan of Care Treatment,Training & Education: Yes Patient would benefit from OT for education, treatment and training to promote independence in ADL's, mobility, safety and/or upper extremity function for ADL' s. Plan of Care: ADL Retraining, Functional Mobility, Group Exercise/Act as Ind ( education, exercise, funct mobility, act tolerance, socialization), UE Funct Exercise/Act, UE Neuromus Re-Ed/Coord Treatment Duration: Jul 30, 2018 Frequency: At least 5 of 7 days/Wk (IRF) Estimated Hrs Per Day: 1.5 hours per day Agreement: Yes Rehab Potential: Fair Time/GCodes Start Time: 08:30 Stop Time: 09:15 Total Time Billed (hr/min): 45 Billed Treatment Time 1, ADL x 3 YADI PINK OT Jul 22, 2018 11:17
--- NOTE | 2018-07-22 12:01 | Speech Therapy Daily Note ---
Speech Daily Progress Note Subjective Date Seen by Provider: Jul 22, 2018 Time Seen by Provider: 00:30 Patient complained of fatigue and had PT and OT earlier in the AM Objective Patient participated in memory tasks with 80% accuracy given minimal verbal cues Assessment Assessment Current Status: Good Progress Treatment Plan Continue Plan of Care Communication Comprehension: 2 Expression: 2 Social Cognition Social Interaction: 3 Problem Solvin Memory: 2 Speech Short Term Goals Short Term Goals Short Term Goals 1) Patient will increase functional problems solving skills to 90% with minimal verbal cues. 2) Patient will increase memory skills to 90% with compensatory strategies as trained in order to increase safety during daily living tasks. 3) Patient will increase sequencing skills to 90% with minimal verbal cues. Speech Histology Aide Goals Assisted Goals Patient will improve overall function with memory, problem solving and auditory comprehension to be safe in her living environment. Speech-Plan Patient/Family Goals Patient/Family Goals: Patient plans to return home independently with support of her son Treatment Plan Speech Therapy Treatment Plan: Continue Plan of Care Patient discussed going home on Thursday for Treatment Duration: Jul 23, 2018 Frequency: 1 time per week Estimated Hrs Per Day: .5 hour per day Rehab Potential: Fair Barriers to Learning: Patient fatigues easily Safety Risks/Education Teaching Recipient: Patient Teaching Methods: Discussion Response to Teaching: Verbalize Understanding Education Topics Provided: Safety to utilize call light in room Time Speech Therapy Time In: 11:15 Speech Therapy Time Out: 11:45 Total Billed Time: 30 Billed Treatment Time 1TIKA BETHANIA ST Jul 22, 2018 12:01
--- NOTE | 2018-07-22 13:01 | Diagnostic Imaging Report ---
EXAMINATION: Unilateral right lower extremity arterial Doppler. INDICATION: Peripheral vascular disease. COMPARISON: There are no prior studies available for comparison. TECHNIQUE: Spectral and color flow imaging of the arterial system of the right lower extremity was performed. FINDINGS: There is fairly good arterial blood flow in the common femoral and superficial femoral arteries. Biphasic waveforms are seen, and there are no abrupt alterations in velocities to suggest a hemodynamically significant stenosis. However, near the junction of the distal superficial femoral artery and the popliteal artery, there is a decrease in the velocity. This is not convincing for a hemodynamically significant stenosis. There does seem to be diminished arterial blood flow to the lower leg. There is no blood flow seen in the posterior tibial artery, and the waveform in the anterior tibial artery changes to monophasic. 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 If further imaging is desired, then CTA of the aorta with bilateral runoffs would be recommended. IMPRESSION: There is no hemodynamically significant stenosis identified with certainty, but there does seem to be diminished arterial blood flow to the lower leg. 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 Recommendations as above. Dictated by: Dictated on workstation # [id number]
--- NOTE | 2018-07-22 15:44 | Physical Therapy Daily Note ---
PT Daily Note-Current Subjective Pt sitting in recliner asleep upon arrival. Pt agrees to PT but asks to stay in room for Ex due to fatigue. Mental Status Patient Orientation: Person, Place, Situation Transfers Therapy Code Descriptions/Definitions Functional [place] Measure: 0=Not Assessed/NA 4=Minimal Assistance 1=Total Assistance 5=Supervision or Setup 2=Maximal Assistance 6=Modified [place] 3=Moderate Assistance 7=Complete [place] Therapy Quality Codes: 6 Independent with activity with or without an assistive device 5 Patient requires set up or clean up by helper. Patient completes activity by themselves 4 Supervision or touching assist (CGA). [place] provide cues , steadying assist 3 The helper provides less than half the effort to complete the activity 2 The helper provides more than half the effort to complete the activity 1 Dependent. The helper does all the effort to complete an activity 7 Patient refused to complete or attempt activity 9 The patient did not perform the activity before the current illness or injury 88 Not attempted due to Medical conditions or safety concerns Weight Bearing Right Lower Extremity: Right Full Weight Bearing Left Lower Extremity: Left Full Weight Bearing Exercises Seated Therapy Exercises: Ankle pumps, Long arc quads, Hip flexion, Kicking activity, Hip abd/add Seated Reps: 15 Assessment Current Status: Fair Progress Pt fatigues easily and needs frequent rest breaks. PT Short Term Goals Short Term Goals Time Frame: Jul 23, 2018 Gait (FIM): 4 PT Affiliate Manager Goals Affiliate Manager Goals PT Affiliate Manager Goals Time Frame: Jul 30, 2018 Transfers (B,C,W/C) (FIM): 7 Sit to Lying (QC): 6 Lying-Sitting on Side/Bed(QC): 6 Sit to Stand (QC): 6 Rollin Roll Left to Right (QC): 6 Chair/Dgw-wd-Qkskw Xfer(QC): 6 Car Transfer (QC): 6 Does the Patient Walk: Yes Gait (FIM): 6 (with FWW or a cane) Gait distance (FIM): 3=150 ft Walk 10 feet (QC): 6 Walk 10ft-Uneven Surface(QC): 6 Walk 50ft with 2 Turns (QC): 6 Walk 150 ft (QC): 6 Gait Assistive Device: FWW (or cane) Does the Pt use WC or Scooter?: No Stairs (FIM): 5 (household level) # of Steps: 4 1 Step (curb) (QC): 6 4 Steps (QC): 6 12 Steps (QC): 88 Picking up an Object (QC): 4 PT Plan Problem List Problem List: Activity Tolerance, Functional Strength, Safety Treatment/Plan Treatment Plan: Continue Plan of Care Treatment Plan: Bed Mobility, Education, Functional Activity Arely, Functional Strength, Group Therapy, Gait, Safety, Therapeutic Exercise, Transfers Treatment Duration: Jul 30, 2018 Frequency: At least 5 of 7 days/Wk (IRF) Estimated Hrs Per Day: 1.5 hours per day Patient and/or Family Agrees t: Yes Safety Risks/Education Patient Education: Correct Positioning, Safety Issues Teaching Recipient: Patient Teaching Methods: Discussion Response to Teaching: Verbalize Understanding Time/GCodes Time In: 1330 Time Out: 1400 Total Billed Treatment Time: 30 Total Billed Treatment 1, EX x2 (30m) G Codes Necessary: KELY Jacome CUTTING AND BONING SUPERVISOR Jul 22, 2018 15:44
--- NOTE | 2018-07-22 15:46 | Occupational Ther Daily Note ---
OT Current Status-Daily Note Subjective No pain reported. Appearance Pt. in chair. Requests to use the bathroom. Mental Status/Objective Patient Orientation: Unable to Assess Therapy Code Descriptions/Definitions Functional [place] Measure: 0=Not Assessed/NA 4=Minimal Assistance 1=Total Assistance 5=Supervision or Setup 2=Maximal Assistance 6=Modified [place] 3=Moderate Assistance 7=Complete [place] ADL-Treatment Therapy Code Descriptions/Definitions Functional [place] Measure: 0=Not Assessed/NA 4=Minimal Assistance 1=Total Assistance 5=Supervision or Setup 2=Maximal Assistance 6=Modified [place] 3=Moderate Assistance 7=Complete [place] Therapy Quality Codes: 6 Independent with activity with or without an assistive device 5 Patient requires set up or clean up by helper. Patient completes activity by themselves 4 Supervision or touching assist (CGA). [place] provide cues , steadying assist 3 The helper provides less than half the effort to complete the activity 2 The helper provides more than half the effort to complete the activity 1 Dependent. The helper does all the effort to complete an activity 7 Patient refused to complete or attempt activity 9 The patient did not perform the activity before the current illness or injury 88 Not attempted due to Medical conditions or safety concerns Toileting (FIM): 6 Toileting Hygiene (QC): 6 Transfers (B, C, W/C) (FIM): 5 Toilet/Commode Transfer (FIM): 5 Toilet Transfer (QC): 5 Other Treatment Pt. ambulated from chair to bathroom with SBA using walker. Toileted self with Mod I. Stood at sink with SBA to wash hands. Ambulated to therapy dining area and participated in puzzle activity for socialization and cognition. Pt. is encouraged multiple times to initiate finding a puzzle piece that fits. Pt. sits and smiles, but does not initiate for a long time. OT as well as another therapist were working on puzzle and encouraging pt. Pt. did finally attempt to place some pieces, and was able to place approximately 4 pieces with max encouragement. Pt. demonstrates flat affect and difficulty initiating tasks. Education OT Patient Education: Correct positioning, Modified ADL techniques, Progress toward Goal/Update tx plan, Purpose of tx/functional activities, Reviewed precautions, Rehab process, Transfer techniques Teaching Recipient: Patient Teaching Methods: Demonstration, Discussion Response to Teaching: Verbalize Understanding, Return Demonstration OT Short Term Goals Short Term Goals Time Frame: Jul 23, 2018 Grooming(FIM): 5 (setup) Lower Body Dressing(FIM): 5 Toileting(FIM): 5 Toilet/Commode Transfer(FIM): 5 1=Demonstrate adherence to instructed precautions during ADL tasks. 2=Patient will verbalize/demonstrate understanding of assistive devices/ modifications for ADL. 3=Patient will improve strength/tolerance for activity to enable patient to perform ADL's. OT Stitching Machine Operator Goals Stitching Machine Operator Goals Time Frame: Jul 30, 2018 Eating (FIM): 6 Eating (QC): 6 Groomin Oral Hygiene (QC): 6 Bathing(FIM): 6 Shower/Bathe Self (QC): 6 Upper Body Dressing(FIM): 6 Upper Body Dressing (QC): 6 Lower Body Dressing(FIM): 6 Lower Body Dressing (QC): 6 On/Off Footwear (QC): 6 Toileting(FIM): 6 Toileting Hygiene (QC): 6 Toilet/Commode Transfer(FIM): 6 Toilet/Commode Transfer (QC): 6 Shower Transfer(FIM): 6 Additional Goals: 1-Demonstrate ADL Tasks, 2-Verbalize Understanding, 3- ImproveStrength/Arely 1=Demonstrate adherence to instructed precautions during ADL tasks. 2=Patient will verbalize/demonstrate understanding of assistive devices/ modifications for ADL. 3=Patient will improve strength/tolerance for activity to enable patient to perform ADL's. OT Education/Plan Problem List/Assessment Assessment: Decreased Activ Tolerance, Dependent Transfers, Impaired Cognition , Impaired I ADL's, Impaired Self-Care Skills Pt would benefit from skilled OT to increase her independence in basic self care to allow her to safely return home Discharge Recommendations Plan/Recommendations: Continue POC Therapy D/C Recommendations: Assisted Living Treatment Plan/Plan of Care Treatment,Training & Education: Yes Patient would benefit from OT for education, treatment and training to promote independence in ADL's, mobility, safety and/or upper extremity function for ADL' s. Plan of Care: ADL Retraining, Functional Mobility, Group Exercise/Act as Ind ( education, exercise, funct mobility, act tolerance, socialization), UE Funct Exercise/Act, UE Neuromus Re-Ed/Coord Treatment Duration: Jul 30, 2018 Frequency: At least 5 of 7 days/Wk (IRF) Estimated Hrs Per Day: 1.5 hours per day Agreement: Yes Rehab Potential: Fair Time/GCodes Start Time: 13:00 Stop Time: 13:30 Total Time Billed (hr/min): 30 Billed Treatment Time 1, ADL x 15minutes, FA x 15minutes YADI PINK OT Jul 22, 2018 15:46
[2018-07-22 15:56] VITALS: BP 161/62
[2018-07-23 05:19] VITALS: BP 140/62
[2018-07-23] MEDS: lisINopril 5 MG (PRINIVIL) TABLET PO SCH (07:53)
[2018-07-23] MEDS: CLOPIDOGREL 75 MG (PLAVIX) TABLET PO SCH (07:54)
[2018-07-23] MEDS: ASPIRIN E.C. 81 MG (ECOTRIN) TAB PO SCH (07:54)
[2018-07-23] MEDS: ASCORBIC ACID (VIT C) 500 MG TABLET PO SCH (07:54)
--- NOTE | 2018-07-23 11:57 | Physical Therapy Daily Note ---
PT Daily Note-Current Subjective Pt. agreeable to rx and states she sees that she has made a lot of progress. Pain Location: No Pain Reported Mental Status Patient Orientation: Person, Place, Time, Situation Transfers Therapy Code Descriptions/Definitions Functional [place] Measure: 0=Not Assessed/NA 4=Minimal Assistance 1=Total Assistance 5=Supervision or Setup 2=Maximal Assistance 6=Modified [place] 3=Moderate Assistance 7=Complete [place] Therapy Quality Codes: 6 Independent with activity with or without an assistive device 5 Patient requires set up or clean up by helper. Patient completes activity by themselves 4 Supervision or touching assist (CGA). [place] provide cues , steadying assist 3 The helper provides less than half the effort to complete the activity 2 The helper provides more than half the effort to complete the activity 1 Dependent. The helper does all the effort to complete an activity 7 Patient refused to complete or attempt activity 9 The patient did not perform the activity before the current illness or injury 88 Not attempted due to Medical conditions or safety concerns Transfers (B, C, W/C) (FIM): 5 Scootin Rollin Supine to/from Sit: 5 Sit to/from Stand: 5 Bed to/from Chair: 5 plops back down occas while attempting sit to stand, struggles at times with sup to side to sit. car TRF SBA and instruction Weight Bearing Right Lower Extremity: Right Full Weight Bearing Left Lower Extremity: Left Full Weight Bearing Gait Training Does the Patient Walk?: Yes Gait (FIM): 4 Distance (FIM): 3=150 ft (175x2) Gait Level of Assist: 4 Gait Persons Needed: 1 Gait Assistive Device: FWW low, head down, needs direction to goal/destination Stair Training Stair Training: Handrails/: 2 handrails Stairs (FIM): 2 #of Steps: 4 Stairs: Pattern: Step to Level of Assist: 4 Exercises Supine Ex: Bridging, Ankle pumps, Quad Set, Rolling, Glut sets, Heel Slides, Short Arc Quads, Scooting, Straight leg raise, Hip abd/add Supine Reps: 12 Seated Therapy Exercises: Ankle pumps, Sit to stand, Long arc quads, Hip flexion, Hip abd/add Seated Reps: 12 Standing: Hip Abduction, Heel/toe raises, Marching, Mini squats Standing Reps: 12 NuStep Minutes: 8 NuStep Workload: 2 Assessment Current Status: Good Progress progress noted in all phases of Rx, PT Short Term Goals Short Term Goals Time Frame: Jul 23, 2018 Gait (FIM): 4 PT Deputy Coroner Investigator Goals Halfway Goals PT Halfway Goals Time Frame: Jul 30, 2018 Transfers (B,C,W/C) (FIM): 7 Sit to Lying (QC): 6 Lying-Sitting on Side/Bed(QC): 6 Sit to Stand (QC): 6 Rollin Roll Left to Right (QC): 6 Chair/Fgo-wy-Whqym Xfer(QC): 6 Car Transfer (QC): 6 Does the Patient Walk: Yes Gait (FIM): 6 (with FWW or a cane) Gait distance (FIM): 3=150 ft Walk 10 feet (QC): 6 Walk 10ft-Uneven Surface(QC): 6 Walk 50ft with 2 Turns (QC): 6 Walk 150 ft (QC): 6 Gait Assistive Device: FWW (or cane) Does the Pt use WC or Scooter?: No Stairs (FIM): 5 (household level) # of Steps: 4 1 Step (curb) (QC): 6 4 Steps (QC): 6 12 Steps (QC): 88 Picking up an Object (QC): 4 PT Plan Treatment/Plan Treatment Plan: Continue Plan of Care Treatment Plan: Bed Mobility, Education, Functional Activity Arely, Functional Strength, Group Therapy, Gait, Safety, Therapeutic Exercise, Transfers Treatment Duration: Jul 30, 2018 Frequency: At least 5 of 7 days/Wk (IRF) Estimated Hrs Per Day: 1.5 hours per day Patient and/or Family Agrees t: Yes Safety Risks/Education Patient Education: Gait Training, Transfer Techniques, Steps, Correct Positioning, Disease Process, Safety Issues Teaching Recipient: Patient Teaching Methods: Demonstration, Discussion Response to Teaching: Verbalize Understanding, Return Demonstration, Reinforcement Needed Time/GCodes Time In: 1100 Time Out: 1200 Total Billed Treatment Time: 60 Total Billed Treatment 1,EX25m,GT20m,FA15m G Codes Necessary: CJ Cortez PRE ALGEBRA TEACHER Jul 23, 2018 11:57
--- NOTE | 2018-07-23 12:38 | Occupational Ther Daily Note ---
OT Current Status-Daily Note Subjective Pt seen in room, up in recliner, agreeable to OT. No pain mentioned. Appearance Alert, cooperative, flat affect Mental Status/Objective Therapy Code Descriptions/Definitions Functional [place] Measure: 0=Not Assessed/NA 4=Minimal Assistance 1=Total Assistance 5=Supervision or Setup 2=Maximal Assistance 6=Modified [place] 3=Moderate Assistance 7=Complete [place] Attachments: [place] ADL-Treatment Pt able to don/doff top and pants with setup for top and SBA for pants, FWW. Shoes on and off without difficulty.Up from chair with cues for hand placement. Walked to bathroom SBA, FWW. Stood at sink to brush teeth and comb hair. All ADLs took longer than usual and cues to initiate. Looking forward to discharge on Thursday. Therapy Code Descriptions/Definitions Functional [place] Measure: 0=Not Assessed/NA 4=Minimal Assistance 1=Total Assistance 5=Supervision or Setup 2=Maximal Assistance 6=Modified [place] 3=Moderate Assistance 7=Complete [place] Therapy Quality Codes: 6 Independent with activity with or without an assistive device 5 Patient requires set up or clean up by helper. Patient completes activity by themselves 4 Supervision or touching assist (CGA). [place] provide cues , steadying assist 3 The helper provides less than half the effort to complete the activity 2 The helper provides more than half the effort to complete the activity 1 Dependent. The helper does all the effort to complete an activity 7 Patient refused to complete or attempt activity 9 The patient did not perform the activity before the current illness or injury 88 Not attempted due to Medical conditions or safety concerns Grooming (FIM): 5 Upper Body (FIM): 5 Lower Body Dressing (FIM): 5 Other Treatment Walked with SBA, FWW to gym. In and out of chair with arms, struggling a little with sit to stand. Completed tabletop task with 1/2# weight in each arm, to strengthen arms to help with transfers. Walked back to room SBA, FWW and left up in recliner, all needs met. Education OT Patient Education: Exercise program, Progress toward Goal/Update tx plan, Purpose of tx/functional activities, Safety issues, Transfer techniques Teaching Recipient: Patient Teaching Methods: Demonstration, Discussion Response to Teaching: Verbalize Understanding, Return Demonstration, Reinforcement Needed OT Short Term Goals Short Term Goals Time Frame: Jul 23, 2018 Grooming(FIM): 5 (setup) Lower Body Dressing(FIM): 5 Toileting(FIM): 5 Toilet/Commode Transfer(FIM): 5 1=Demonstrate adherence to instructed precautions during ADL tasks. 2=Patient will verbalize/demonstrate understanding of assistive devices/ modifications for ADL. 3=Patient will improve strength/tolerance for activity to enable patient to perform ADL's. OT Half-Way Goals Oversize Load Pilot Escort Goals Time Frame: Jul 30, 2018 Eating (FIM): 6 Eating (QC): 6 Groomin Oral Hygiene (QC): 6 Bathing(FIM): 6 Shower/Bathe Self (QC): 6 Upper Body Dressing(FIM): 6 Upper Body Dressing (QC): 6 Lower Body Dressing(FIM): 6 Lower Body Dressing (QC): 6 On/Off Footwear (QC): 6 Toileting(FIM): 6 Toileting Hygiene (QC): 6 Toilet/Commode Transfer(FIM): 6 Toilet/Commode Transfer (QC): 6 Shower Transfer(FIM): 6 Additional Goals: 1-Demonstrate ADL Tasks, 2-Verbalize Understanding, 3- ImproveStrength/Arely 1=Demonstrate adherence to instructed precautions during ADL tasks. 2=Patient will verbalize/demonstrate understanding of assistive devices/ modifications for ADL. 3=Patient will improve strength/tolerance for activity to enable patient to perform ADL's. OT Education/Plan Problem List/Assessment Pt would benefit from skilled OT to increase her independence in basic self care to allow her to safely return home Discharge Recommendations Plan/Recommendations: Continue POC Treatment Plan/Plan of Care Patient would benefit from OT for education, treatment and training to promote independence in ADL's, mobility, safety and/or upper extremity function for ADL' s. Plan of Care: ADL Retraining, Functional Mobility, Group Exercise/Act as Ind ( education, exercise, funct mobility, act tolerance, socialization), UE Funct Exercise/Act, UE Neuromus Re-Ed/Coord Treatment Duration: Jul 30, 2018 Frequency: At least 5 of 7 days/Wk (IRF) Estimated Hrs Per Day: 1.5 hours per day Agreement: Yes Rehab Potential: Fair Time/GCodes Start Time: 08:15 Stop Time: 09:00 Total Time Billed (hr/min): 45 Billed Treatment Time visit, 25 minutes ADL, 20 minutes exercise PAULA YORK OT Jul 23, 2018 12:38
--- NOTE | 2018-07-23 13:22 | Speech Therapy Daily Note ---
Speech Daily Progress Note Subjective Date Seen by Provider: Jul 23, 2018 Time Seen by Provider: 00:30 Patient was eating her lunch when I arrived. Patient's son was here to visit and was present for the session. Pain Pain Description: Ache Objective Patient completed memory tasks at 80% accuracy with min to mod verbal cues. Treatment Plan Continue Plan of Care Communication Comprehension: 2 Expression: 2 Social Cognition Social Interaction: 3 Problem Solvin Memory: 2 Speech Short Term Goals Short Term Goals Short Term Goals 1) Patient will increase functional problems solving skills to 90% with minimal verbal cues. 2) Patient will increase memory skills to 90% with compensatory strategies as trained in order to increase safety during daily living tasks. 3) Patient will increase sequencing skills to 90% with minimal verbal cues. Speech Smokehouse Worker Goals Smokehouse Worker Goals Patient will improve overall function with memory, problem solving and auditory comprehension to be safe in her living environment. Speech-Plan Patient/Family Goals Patient/Family Goals: Patient will return home independently with her son for support on 07/26/2018. Treatment Plan Speech Therapy Treatment Plan: Continue Plan of Care Patient has made progress on all of her goals with skilled ST services. Treatment Duration: Jul 26, 2018 Frequency: 1 time per week Estimated Hrs Per Day: .5 hour per day Rehab Potential: Fair Barriers to Learning: Patient has memory and problem solving deficits. Pt/Family Agrees to Plan: Yes Safety Risks/Education Teaching Recipient: Patient, Family Teaching Methods: Discussion Response to Teaching: Verbalize Understanding Education Topics Provided: Safety and communication of wants/needs. Time Speech Therapy Time In: 12:30 Speech Therapy Time Out: 13:00 Total Billed Time: 30 Billed Treatment Time TIKA Dickerson [facility] [address] Jul 23, 2018 13:22
--- NOTE | 2018-07-23 15:21 | Physical Therapy Daily Note ---
PT Daily Note-Current Subjective Pt. agreeable to Rx. Wants to do Nustep. "I really like it." son joind pt. for part of Rx Pain Numeric Pain Scale: 0-No Pain Transfers Therapy Code Descriptions/Definitions Functional [place] Measure: 0=Not Assessed/NA 4=Minimal Assistance 1=Total Assistance 5=Supervision or Setup 2=Maximal Assistance 6=Modified [place] 3=Moderate Assistance 7=Complete [place] Therapy Quality Codes: 6 Independent with activity with or without an assistive device 5 Patient requires set up or clean up by helper. Patient completes activity by themselves 4 Supervision or touching assist (CGA). [place] provide cues , steadying assist 3 The helper provides less than half the effort to complete the activity 2 The helper provides more than half the effort to complete the activity 1 Dependent. The helper does all the effort to complete an activity 7 Patient refused to complete or attempt activity 9 The patient did not perform the activity before the current illness or injury 88 Not attempted due to Medical conditions or safety concerns all TRFs SBA to Mod I Weight Bearing Right Lower Extremity: Right Full Weight Bearing Left Lower Extremity: Left Full Weight Bearing Gait Training Gait Assistive Device: FWW 50x1, 160x1, SBA Exercises NuStep Minutes: 10 NuStep Workload: 2 Assessment Current Status: Good Progress PT Short Term Goals Short Term Goals Time Frame: Jul 23, 2018 Gait (FIM): 4 PT Manager Math Goals Manager Math Goals PT Jail Goals Time Frame: Jul 30, 2018 Transfers (B,C,W/C) (FIM): 7 Sit to Lying (QC): 6 Lying-Sitting on Side/Bed(QC): 6 Sit to Stand (QC): 6 Rollin Roll Left to Right (QC): 6 Chair/Kaa-fw-Vhipm Xfer(QC): 6 Car Transfer (QC): 6 Does the Patient Walk: Yes Gait (FIM): 6 (with FWW or a cane) Gait distance (FIM): 3=150 ft Walk 10 feet (QC): 6 Walk 10ft-Uneven Surface(QC): 6 Walk 50ft with 2 Turns (QC): 6 Walk 150 ft (QC): 6 Gait Assistive Device: FWW (or cane) Does the Pt use WC or Scooter?: No Stairs (FIM): 5 (household level) # of Steps: 4 1 Step (curb) (QC): 6 4 Steps (QC): 6 12 Steps (QC): 88 Picking up an Object (QC): 4 PT Plan Treatment/Plan Treatment Plan: Continue Plan of Care Treatment Plan: Bed Mobility, Education, Functional Activity Arely, Functional Strength, Group Therapy, Gait, Safety, Therapeutic Exercise, Transfers Treatment Duration: Jul 30, 2018 Frequency: At least 5 of 7 days/Wk (IRF) Estimated Hrs Per Day: 1.5 hours per day Patient and/or Family Agrees t: Yes Safety Risks/Education Patient Education: Gait Training, Transfer Techniques, Correct Positioning, Disease Process, Safety Issues Teaching Recipient: Patient Teaching Methods: Demonstration, Discussion Response to Teaching: Verbalize Understanding, Return Demonstration, Reinforcement Needed Time/GCodes Time In: 1500 Time Out: 1520 Total Billed Treatment Time: 20 Total Billed Treatment 1,EX20m G Codes Necessary: CJ Cortez CADMIUM LIQUOR MAKER Jul 23, 2018 15:21
--- NOTE | 2018-07-23 15:29 | Occupational Ther Daily Note ---
OT Current Status-Daily Note Subjective Pt seen in room, up in bed, agreeable to OT. No pain mentioned Appearance Alert, cooperative Mental Status/Objective Therapy Code Descriptions/Definitions Functional [place] Measure: 0=Not Assessed/NA 4=Minimal Assistance 1=Total Assistance 5=Supervision or Setup 2=Maximal Assistance 6=Modified Cr[place] 3=Moderate Assistance 7=Complete Cr[place] ADL-Treatment Therapy Code Descriptions/Definitions Functional [place] Measure: 0=Not Assessed/NA 4=Minimal Assistance 1=Total Assistance 5=Supervision or Setup 2=Maximal Assistance 6=Modified Cr[place] 3=Moderate Assistance 7=Complete Cr[place] Therapy Quality Codes: 6 Independent with activity with or without an assistive device 5 Patient requires set up or clean up by helper. Patient completes activity by themselves 4 Supervision or touching assist (CGA). [place] provide cues , steadying assist 3 The helper provides less than half the effort to complete the activity 2 The helper provides more than half the effort to complete the activity 1 Dependent. The helper does all the effort to complete an activity 7 Patient refused to complete or attempt activity 9 The patient did not perform the activity before the current illness or injury 88 Not attempted due to Medical conditions or safety concerns Other Treatment Pt got up from bed without help, walked to gym with SBAd FWW. She was able to get in/out of chair with arms without assistance and did not need cues for hand placement. Family education on transfer technique, including use of arms to control sitting. Pt completed nuts and bolts activity with 1/2# weight on each arm, to strengthen arms for transfers and ADLs. She said that she could tell that her arms were tired after activity. Care transferred to PT. Education OT Patient Education: Progress toward Goal/Update tx plan, Purpose of tx/ functional activities, Transfer techniques Teaching Recipient: Patient Teaching Methods: Discussion Response to Teaching: Verbalize Understanding OT Short Term Goals Short Term Goals Time Frame: Jul 23, 2018 Grooming(FIM): 5 (setup) Lower Body Dressing(FIM): 5 Toileting(FIM): 5 Toilet/Commode Transfer(FIM): 5 1=Demonstrate adherence to instructed precautions during ADL tasks. 2=Patient will verbalize/demonstrate understanding of assistive devices/ modifications for ADL. 3=Patient will improve strength/tolerance for activity to enable patient to perform ADL's. OT Senior Care Goals Milk Powder Grinder Goals Time Frame: Jul 30, 2018 Eating (FIM): 6 Eating (QC): 6 Groomin Oral Hygiene (QC): 6 Bathing(FIM): 6 Shower/Bathe Self (QC): 6 Upper Body Dressing(FIM): 6 Upper Body Dressing (QC): 6 Lower Body Dressing(FIM): 6 Lower Body Dressing (QC): 6 On/Off Footwear (QC): 6 Toileting(FIM): 6 Toileting Hygiene (QC): 6 Toilet/Commode Transfer(FIM): 6 Toilet/Commode Transfer (QC): 6 Shower Transfer(FIM): 6 Additional Goals: 1-Demonstrate ADL Tasks, 2-Verbalize Understanding, 3- ImproveStrength/Arely 1=Demonstrate adherence to instructed precautions during ADL tasks. 2=Patient will verbalize/demonstrate understanding of assistive devices/ modifications for ADL. 3=Patient will improve strength/tolerance for activity to enable patient to perform ADL's. OT Education/Plan Problem List/Assessment Pt would benefit from skilled OT to increase her independence in basic self care to allow her to safely return home Discharge Recommendations Plan/Recommendations: Continue POC Treatment Plan/Plan of Care Patient would benefit from OT for education, treatment and training to promote independence in ADL's, mobility, safety and/or upper extremity function for ADL' s. Plan of Care: ADL Retraining, Functional Mobility, Group Exercise/Act as Ind ( education, exercise, funct mobility, act tolerance, socialization), UE Funct Exercise/Act, UE Neuromus Re-Ed/Coord Treatment Duration: Jul 30, 2018 Frequency: At least 5 of 7 days/Wk (IRF) Estimated Hrs Per Day: 1.5 hours per day Agreement: Yes Rehab Potential: Fair Time/GCodes Start Time: 14:30 Stop Time: 15:00 Total Time Billed (hr/min): 30 Billed Treatment Time visit, 30 minutes exercise PAULA YORK OT Jul 23, 2018 15:29
[2018-07-23 17:54] VITALS: BP 145/72
[2018-07-24 05:27] VITALS: BP 118/66
[2018-07-24] MEDS: lisINopril 5 MG (PRINIVIL) TABLET PO SCH (08:25)
[2018-07-24] MEDS: ASPIRIN E.C. 81 MG (ECOTRIN) TAB PO SCH (08:25)
[2018-07-24] MEDS: ASCORBIC ACID (VIT C) 500 MG TABLET PO SCH (08:25)
[2018-07-24] MEDS: CLOPIDOGREL 75 MG (PLAVIX) TABLET PO SCH (08:25)
--- NOTE | 2018-07-24 12:44 | Therapy Group Daily Note ---
Therapy Daily Group Note Patient Education Topic Home Safety, Fall Prevention, Exercises, Other List Below Exercises LE Seated Exercise, ROM, Stretching, UE Exercise Other/Notes Group activity to work on social interaction and facilitate cognitive activity. Performed seated exercises for UE and LE strength and ROM. Education on fall prevention with emphasis on home safety. Educated patients on the physiology of pain and mechanisms to cope. Also discussed the importance of continuing to work on graded exercise despite pain in order to prevent loss of strength and function. Worked on transfers and mobility too/from dining tables. Start Time: 11:00 Stop Time: 12:00 Total Billed Treatment Time: 60 Total Billed Treatment VISIT, GROUP 60 MIN EDITH DAVILA PT Jul 24, 2018 12:44
--- NOTE | 2018-07-24 12:46 | Progress Note-Hospitalist ---
Subjective HPI/CC On Admission Date Seen by Provider: Jul 24, 2018 Time Seen by Provider: 12:20 Subjective/Events-last exam Patient doing much better Overall eating well Feels like she is getting stronger every day Checked meds and labs Bowels are moving Review of Systems General: Fatigue Objective Exam Vital Signs Vital Signs Date Time Temp Pulse Resp B/P (MAP) Pulse Ox O2 Delivery O2 Flow Rate FiO2 07/24/18 09:00 97 Room Air 07/24/18 05:27 97.0 59 20 118/66 (83) 07/19/18 20:10 98 Capillary Refill : General Appearance: No Apparent Distress, WD/WN, Chronically ill, Cachetic, Thin Respiratory: Chest Non Tender, Lungs Clear, Normal Breath Sounds, No Accessory Muscle Use, No Respiratory Distress Cardiovascular: Regular Rate, Rhythm, No Edema, No Gallop, No JVD, No Murmur, Normal Peripheral Pulses Neurologic/Psychiatric: Alert, Oriented x3, No Motor/Sensory Deficits, Normal Mood/Affect Results/Procedures Lab Patient resulted labs reviewed. Assessment/Plan Assessment and Plan Assess & Plan/Chief Complaint Assessment: s/p severe lactic acidosis Chronic wound infection resolved CAD Cardiomyopathy Noncompliance Plan: Home meds BM regimen Pain control Diagnosis/Problems Diagnosis/Problems (1) Debility Status: Acute (2) Wound of back Status: Chronic (3) Cellulitis of leg Status: Acute Qualifiers: Laterality: unspecified laterality Qualified Codes: L03.119 - Cellulitis of unspecified part of limb (4) Wound infection Status: Acute (5) Anemia associated with acute blood loss Status: Acute Clinical Quality Measures DVT/VTE Risk/Contraindication: Risk Factor Score Per Nursin RFS Level Per Nursing on Admit: 3=High CADENCE SHARP DO Jul 24, 2018 12:46
[2018-07-24 16:37] VITALS: BP 138/73
[2018-07-25 05:17] VITALS: BP 124/67
[2018-07-25] MEDS: CLOPIDOGREL 75 MG (PLAVIX) TABLET PO SCH (08:29)
[2018-07-25] MEDS: ASCORBIC ACID (VIT C) 500 MG TABLET PO SCH (08:29)
[2018-07-25] MEDS: ASPIRIN E.C. 81 MG (ECOTRIN) TAB PO SCH (08:29)
[2018-07-25] MEDS: lisINopril 5 MG (PRINIVIL) TABLET PO SCH (08:29)
[2018-07-25 16:12] VITALS: BP 131/73
[2018-07-26 05:26] VITALS: BP 126/71
--- NOTE | 2018-07-26 07:45 | Occupational Ther Daily Note ---
OT Current Status-Daily Note Subjective No pain reported. Appearance Pt. up in chair. Agrees to shower. Mental Status/Objective Patient Orientation: Person, Place Therapy Code Descriptions/Definitions Functional [place] Measure: 0=Not Assessed/NA 4=Minimal Assistance 1=Total Assistance 5=Supervision or Setup 2=Maximal Assistance 6=Modified [place] 3=Moderate Assistance 7=Complete [place] ADL-Treatment Therapy Code Descriptions/Definitions Functional [place] Measure: 0=Not Assessed/NA 4=Minimal Assistance 1=Total Assistance 5=Supervision or Setup 2=Maximal Assistance 6=Modified [place] 3=Moderate Assistance 7=Complete [place] Therapy Quality Codes: 6 Independent with activity with or without an assistive device 5 Patient requires set up or clean up by helper. Patient completes activity by themselves 4 Supervision or touching assist (CGA). [place] provide cues , steadying assist 3 The helper provides less than half the effort to complete the activity 2 The helper provides more than half the effort to complete the activity 1 Dependent. The helper does all the effort to complete an activity 7 Patient refused to complete or attempt activity 9 The patient did not perform the activity before the current illness or injury 88 Not attempted due to Medical conditions or safety concerns Grooming (FIM): 5 Oral Hygiene (QC): 4 Bathing (FIM): 5 Shower/Bathe Self (QC): 4 Upper Body (FIM): 5 Upper Body Dressing (QC): 5 Lower Body Dressing (FIM): 5 Lower Body Dressing (QC): 5 On/Off Footwear (QC): 5 Transfers (B, C, W/C) (FIM): 6 Shower Transfer(FIM): 5 Other Treatment Pt. requires SBA/Set up for most ADL tasks, as she requires cues to sequence and initiate. Education OT Patient Education: Correct positioning, Modified ADL techniques, Progress toward Goal/Update tx plan, Purpose of tx/functional activities, Reviewed precautions, Rehab process, Transfer techniques Teaching Recipient: Patient Teaching Methods: Demonstration, Discussion Response to Teaching: Verbalize Understanding, Return Demonstration OT Short Term Goals Short Term Goals Time Frame: Jul 23, 2018 Grooming(FIM): 5 (setup) Lower Body Dressing(FIM): 5 Toileting(FIM): 5 Toilet/Commode Transfer(FIM): 5 1=Demonstrate adherence to instructed precautions during ADL tasks. 2=Patient will verbalize/demonstrate understanding of assistive devices/ modifications for ADL. 3=Patient will improve strength/tolerance for activity to enable patient to perform ADL's. OT Care Home Goals Closet Builder Goals Time Frame: Jul 30, 2018 Eating (FIM): 6 Eating (QC): 6 Groomin Oral Hygiene (QC): 6 Bathing(FIM): 6 Shower/Bathe Self (QC): 6 Upper Body Dressing(FIM): 6 Upper Body Dressing (QC): 6 Lower Body Dressing(FIM): 6 Lower Body Dressing (QC): 6 On/Off Footwear (QC): 6 Toileting(FIM): 6 Toileting Hygiene (QC): 6 Toilet/Commode Transfer(FIM): 6 Toilet/Commode Transfer (QC): 6 Shower Transfer(FIM): 6 Additional Goals: 1-Demonstrate ADL Tasks, 2-Verbalize Understanding, 3- ImproveStrength/Arely 1=Demonstrate adherence to instructed precautions during ADL tasks. 2=Patient will verbalize/demonstrate understanding of assistive devices/ modifications for ADL. 3=Patient will improve strength/tolerance for activity to enable patient to perform ADL's. OT Education/Plan Problem List/Assessment Assessment: Decreased Activ Tolerance Pt would benefit from skilled OT to increase her independence in basic self care to allow her to safely return home Discharge Recommendations Plan/Recommendations: Discontinue OT Therapy D/C Recommendations: Home w/ Family Support, Occupational Therapy Home Care Treatment Plan/Plan of Care Treatment,Training & Education: Yes Patient would benefit from OT for education, treatment and training to promote independence in ADL's, mobility, safety and/or upper extremity function for ADL' s. Plan of Care: ADL Retraining, Functional Mobility, Group Exercise/Act as Ind ( education, exercise, funct mobility, act tolerance, socialization), UE Funct Exercise/Act, UE Neuromus Re-Ed/Coord Treatment Duration: Jul 30, 2018 Frequency: At least 5 of 7 days/Wk (IRF) Estimated Hrs Per Day: 1.5 hours per day Agreement: Yes Rehab Potential: Fair Time/GCodes Start Time: 07:05 Stop Time: 07:45 Total Time Billed (hr/min): 40 Billed Treatment Time 1, ADL x 3 YADI PINK OT Jul 26, 2018 07:45
[2018-07-26] MEDS: ASPIRIN E.C. 81 MG (ECOTRIN) TAB PO SCH (08:35)
[2018-07-26] MEDS: CLOPIDOGREL 75 MG (PLAVIX) TABLET PO SCH (08:35)
[2018-07-26] MEDS: ASCORBIC ACID (VIT C) 500 MG TABLET PO SCH (08:35)
[2018-07-26] MEDS: lisINopril 5 MG (PRINIVIL) TABLET PO SCH (08:35)
--- NOTE | 2018-07-26 10:47 | Physical Therapy Daily Note ---
PT Daily Note-Current Subjective Feels ready to go home today. Reports she does feel stronger. Pain Numeric Pain Scale: 0-No Pain Location: No Pain Reported Mental Status Patient Orientation: Person, Place, Time, Situation Transfers Therapy Code Descriptions/Definitions Functional [place] Measure: 0=Not Assessed/NA 4=Minimal Assistance 1=Total Assistance 5=Supervision or Setup 2=Maximal Assistance 6=Modified [place] 3=Moderate Assistance 7=Complete [place] Therapy Quality Codes: 6 Independent with activity with or without an assistive device 5 Patient requires set up or clean up by helper. Patient completes activity by themselves 4 Supervision or touching assist (CGA). [place] provide cues , steadying assist 3 The helper provides less than half the effort to complete the activity 2 The helper provides more than half the effort to complete the activity 1 Dependent. The helper does all the effort to complete an activity 7 Patient refused to complete or attempt activity 9 The patient did not perform the activity before the current illness or injury 88 Not attempted due to Medical conditions or safety concerns Transfers (B, C, W/C) (FIM): 7 Roll Left to Right (QC): 6 Supine to/from Sit: 7 Sit to/from Stand: 7 Sit to Lying (QC): 6 Sit to Stand (QC): 6 Chair/Xnr-ox-Xjlop Xfer(QC): 6 Car Transfer (QC): 6 Weight Bearing Right Lower Extremity: Right Full Weight Bearing Left Lower Extremity: Left Full Weight Bearing Gait Training Does the Patient Walk?: Yes Gait (FIM): 6 Distance (FIM): 3=150 ft Walk 10 feet (QC): 6 Walk 50 ft with 2 Turns(QC): 6 Walk 150 ft (QC): 6 Walking 10ft/uneven surface-QC: 6 Gait Assistive Device: FWW Stair Training Stair Training: Handrails/: 2 handrails Stairs (FIM): 5 (household) #of Steps: 4 1 Step (curb) (QC): 6 4 Steps (QC): 6 12 Steps (QC): 88 Stairs: Pattern: Step to Balance Picking up an Object (QC): 4 Assessment Current Status: Excellent Progress Pt has made functional gains and is meeting all goals set at evaluation. PT Short Term Goals Short Term Goals Time Frame: Jul 23, 2018 Gait (FIM): 4 PT Prison Goals Rod Piler Goals PT Rod Piler Goals Time Frame: Jul 30, 2018 Transfers (B,C,W/C) (FIM): 7 (met) Sit to Lying (QC): 6 Lying-Sitting on Side/Bed(QC): 6 Sit to Stand (QC): 6 Rollin Roll Left to Right (QC): 6 Chair/Gsh-mr-Gghlw Xfer(QC): 6 Car Transfer (QC): 6 Does the Patient Walk: Yes Gait (FIM): 6 (with FWW or a cane) Gait distance (FIM): 3=150 ft Walk 10 feet (QC): 6 Walk 10ft-Uneven Surface(QC): 6 Walk 50ft with 2 Turns (QC): 6 Walk 150 ft (QC): 6 Gait Assistive Device: FWW (or cane) Does the Pt use WC or Scooter?: No Stairs (FIM): 5 (household level) # of Steps: 4 1 Step (curb) (QC): 6 4 Steps (QC): 6 12 Steps (QC): 88 Picking up an Object (QC): 4 All goals met PT Plan Treatment/Plan Treatment Plan: Discontinue PT, goals met Treatment Plan: Bed Mobility, Education, Functional Activity Arely, Functional Strength, Group Therapy, Gait, Safety, Therapeutic Exercise, Transfers Treatment Duration: Jul 30, 2018 Frequency: At least 5 of 7 days/Wk (IRF) Estimated Hrs Per Day: 1.5 hours per day Patient and/or Family Agrees t: Yes Safety Risks/Education Patient Education: Safety Issues Teaching Recipient: Patient Teaching Methods: Discussion Response to Teaching: Return Demonstration Discharge Recommendations Plan DC this date. Time/GCodes Time In: 900 Time Out: 926 Total Billed Treatment Time: 26 Total Billed Treatment visit FA 26 CLARISSA TALBOT PT Jul 26, 2018 10:47
--- NOTE | 2018-07-26 10:53 | Therapy Team Discharge Summary ---
Therapy Discharge Summary Discharge Recommendations Date of Discharge 07/26/2018 Therapy D/C Recommendations: Home w/ Family Support, Occupational Therapy Home Care Physical Therapy This patient was seen on ARU post acute stay due to functional weakness and debility. Upon admit to ARU, she was min assist with tranfers and min assist with giat short distnces and required extra time to complete tasks; she had gross functional weakness and impaired functional activity tolerance. Treatment has focused on transfers, gait and strengthening activities with safety education. She has made excellent progress and is indep with transfers and mod indep with gait and on stairs. All goals have been met. Pt to discharge home with family support as needed. Occupational Therapy Decreased Activ Tolerance PT Jail Goals Jail Goals PT Professor Of Biological Sciences Goals Time Frame: Jul 30, 2018 Transfers (B,C,W/C) (FIM): 7 (met) Roll Left to Right (QC): 6 Sit to Lying (QC): 6 Lying-Sitting on Side/Bed(QC): 6 Sit to Stand (QC): 6 Chair/Zay-vj-Vvflp Xfer(QC): 6 Car Transfer (QC): 6 Does the Patient Walk: Yes Gait (FIM): 6 (with FWW or a cane) Gait distance (FIM): 3=150 ft Walk 10 feet (QC): 6 Walk 10ft-Uneven Surface(QC): 6 Walk 50ft with 2 Turns (QC): 6 Walk 150 ft (QC): 6 Gait Assistive Device: FWW (or cane) Does the Pt use WC or Scooter?: No Stairs (FIM): 5 (household level) # of Steps: 4 1 Step (curb) (QC): 6 4 Steps (QC): 6 12 Steps (QC): 88 Picking up an Object (QC): 4 All goals met OT Professor Of Biological Sciences Goals Jail Goals Time Frame: Jul 30, 2018 Eating (FIM): 6 Eating (QC): 6 Oral Hygiene (QC): 6 Grooming(FIM): 6 Bathing(FIM): 6 Shower/Bathe Self (QC): 6 Upper Body Dressing(FIM): 6 Upper Body Dressing (QC): 6 Lower Body Dressing(FIM): 6 Lower Body Dressing (QC): 6 On/Off Footwear (QC): 6 Toileting(FIM): 6 Toileting Hygiene (QC): 6 Toilet/Commode Transfer(FIM): 6 Toilet/Commode Transfer (QC): 6 Shower Transfer(FIM): 6 Additional Goals: 1-Demonstrate ADL Tasks, 2-Verbalize Understanding, 3- ImproveStrength/Arely 1=Demonstrate adherence to instructed precautions during ADL tasks. 2=Patient will verbalize/demonstrate understanding of assistive devices/ modifications for ADL. 3=Patient will improve strength/tolerance for activity to enable patient to perform ADL's. Speech Jail Goals Professor Of Biological Sciences Goals Patient will improve overall function with memory, problem solving and auditory comprehension to be safe in her living environment. CLARISSA TALBOT PT Jul 26, 2018 10:53
--- NOTE | 2018-07-26 10:58 | Speech Therapy Daily Note ---
Speech Daily Progress Note Subjective Date Seen by Provider: Jul 26, 2018 Time Seen by Provider: 00:15 Patient is ready to go home today. Objective Patient completed memory tasks at 90% accuracy without cues today. Assessment Assessment Current Status: Good Progress Communication Comprehension: 6 Expression: 6 Social Cognition Social Interaction: 5 Problem Solvin Memory: 6 Speech Short Term Goals Short Term Goals Short Term Goals 1) Patient will increase functional problems solving skills to 90% with minimal verbal cues. 2) Patient will increase memory skills to 90% with compensatory strategies as trained in order to increase safety during daily living tasks. 3) Patient will increase sequencing skills to 90% with minimal verbal cues. Speech Universal Winding Machine Operator Goals Snf Goals Patient will improve overall function with memory, problem solving and auditory comprehension to be safe in her living environment. Speech-Plan Patient/Family Goals Patient/Family Goals: Patient is returning home with the support of her son today. Treatment Plan Speech Therapy Treatment Plan: Discontinue ST, Goals Met Patient is excited to be getting released from the hospital for [place]. Treatment Duration: Jul 26, 2018 Frequency: 1 time per week Estimated Hrs Per Day: .5 hour per day Rehab Potential: Fair Barriers to Learning: Patient tires easily. Pt/Family Agrees to Plan: Yes Safety Risks/Education Teaching Recipient: Patient Teaching Methods: Discussion Response to Teaching: Verbalize Understanding Education Topics Provided: Safety within her home. Time Speech Therapy Time In: 10:00 Speech Therapy Time Out: 10:15 Total Billed Time: 15 Billed Treatment Time 1TIKA BETHANIA ST Jul 26, 2018 10:58
--- NOTE | 2018-07-26 11:03 | Therapy Team Discharge Summary ---
Therapy Discharge Summary Discharge Recommendations Date of Discharge Patient is discharging to home with the support of her son this date. Therapy D/C Recommendations: Home w/ Family Support, Occupational Therapy Home Care Occupational Therapy Decreased Activ Tolerance Speech-Language Pathology Patient was admitted to ARU for debility. She has made good progress and has regained much of her strength. ST focused on memory and problem solving to increase her safety awareness and independence. Patient has met all of her goals and progressed well due to skilled services. Patient is being discharged to her home with her son's support this date. Patient is discharged from skilled ST. PT Residential Goals Residential Goals PT Residential Goals Time Frame: Jul 26, 2018 Transfers (B,C,W/C) (FIM): 7 (met) Roll Left to Right (QC): 6 Sit to Lying (QC): 6 Lying-Sitting on Side/Bed(QC): 6 Sit to Stand (QC): 6 Chair/Sqd-uq-Lwtuf Xfer(QC): 6 Car Transfer (QC): 6 Does the Patient Walk: Yes Gait (FIM): 6 (with FWW or a cane) Gait distance (FIM): 3=150 ft Walk 10 feet (QC): 6 Walk 10ft-Uneven Surface(QC): 6 Walk 50ft with 2 Turns (QC): 6 Walk 150 ft (QC): 6 Gait Assistive Device: FWW (or cane) Does the Pt use WC or Scooter?: No Stairs (FIM): 5 (household level) # of Steps: 4 1 Step (curb) (QC): 6 4 Steps (QC): 6 12 Steps (QC): 88 Picking up an Object (QC): 4 OT Residential Goals Residential Goals Time Frame: Jul 30, 2018 Eating (FIM): 6 Eating (QC): 6 Oral Hygiene (QC): 6 Grooming(FIM): 6 Bathing(FIM): 6 Shower/Bathe Self (QC): 6 Upper Body Dressing(FIM): 6 Upper Body Dressing (QC): 6 Lower Body Dressing(FIM): 6 Lower Body Dressing (QC): 6 On/Off Footwear (QC): 6 Toileting(FIM): 6 Toileting Hygiene (QC): 6 Toilet/Commode Transfer(FIM): 6 Toilet/Commode Transfer (QC): 6 Shower Transfer(FIM): 6 Additional Goals: 1-Demonstrate ADL Tasks, 2-Verbalize Understanding, 3- ImproveStrength/Arely 1=Demonstrate adherence to instructed precautions during ADL tasks. 2=Patient will verbalize/demonstrate understanding of assistive devices/ modifications for ADL. 3=Patient will improve strength/tolerance for activity to enable patient to perform ADL's. Speech Staffing Specialist Goals Staffing Specialist Goals Patient will improve overall function with memory, problem solving and auditory comprehension to be safe in her living environment. Met Comprehension: 6 Expression: 6 Social Interaction: 5 Problem Solvin Memory: 6 MAGALI CLAY Jul 26, 2018 11:02
--- NOTE | 2018-07-26 11:40 | Progress Note-Hospitalist ---
Subjective HPI/CC On Admission Date Seen by Provider: Jul 26, 2018 Time Seen by Provider: 10:00 Subjective/Events-last exam Patient is going home today Son will monitor closely Heart rate of 52 so we'll hold for heart rate less than [address] Myers her primary care provider I encouraged her to establish care with a primary care provider and she looked less than infused to do that No pain is reported Review of Systems General: Fatigue Objective Exam Vital Signs Vital Signs Date Time Temp Pulse Resp B/P (MAP) Pulse Ox O2 Delivery O2 Flow Rate FiO2 07/26/18 08:45 Room Air 07/26/18 05:26 97.1 50 16 126/71 (89) 99 Capillary Refill : General Appearance: No Apparent Distress, WD/WN, Chronically ill, Thin Respiratory: Chest Non Tender, Lungs Clear, Normal Breath Sounds, No Accessory Muscle Use, No Respiratory Distress Cardiovascular: Regular Rate, Rhythm, No Edema, No Gallop, No JVD, No Murmur, Normal Peripheral Pulses Neurologic/Psychiatric: Alert, Oriented x3, No Motor/Sensory Deficits, Depressed Affect Results/Procedures Lab Patient resulted labs reviewed. Assessment/Plan Assessment and Plan Assess & Plan/Chief Complaint Assessment: s/p severe lactic acidosis Chronic wound infection resolved CAD Cardiomyopathy Noncompliance Plan: Home meds BM regimen Pain control DC home Diagnosis/Problems Diagnosis/Problems (1) Debility Status: Acute (2) Wound of back Status: Chronic (3) Cellulitis of leg Status: Acute Qualifiers: Laterality: unspecified laterality Qualified Codes: L03.119 - Cellulitis of unspecified part of limb (4) Wound infection Status: Acute (5) Anemia associated with acute blood loss Status: Acute Clinical Quality Measures DVT/VTE Risk/Contraindication: Risk Factor Score Per Nursin RFS Level Per Nursing on Admit: 3=High CADENCE SHARP DO Jul 26, 2018 11:40
--- NOTE | 2018-07-28 14:39 | Therapy Team Discharge Summary ---
Therapy Discharge Summary Discharge Recommendations Date of Discharge Jul 26, 2018 at 16:10 Therapy D/C Recommendations: Home w/ Family Support, Occupational Therapy Home Care Occupational Therapy Pt. seen for occupational therapy to increase overall strength and independence. Pt. requires cues and SBA to complete bathing/dressing, as pt. has difficulty sequencing steps, or initiating. Pt. discharged home with son's assistance. Recommend home health OT for safety evaluation. Decreased Activ Tolerance, Impaired I ADL's, Impaired Self-Care Skills PT Penitentiary Goals Penitentiary Goals PT Penitentiary Goals Time Frame: Jul 26, 2018 Transfers (B,C,W/C) (FIM): 7 (met) Roll Left to Right (QC): 6 Sit to Lying (QC): 6 Lying-Sitting on Side/Bed(QC): 6 Sit to Stand (QC): 6 Chair/Qfd-pv-Cwypi Xfer(QC): 6 Car Transfer (QC): 6 Does the Patient Walk: Yes Gait (FIM): 6 (with FWW or a cane) Gait distance (FIM): 3=150 ft Walk 10 feet (QC): 6 Walk 10ft-Uneven Surface(QC): 6 Walk 50ft with 2 Turns (QC): 6 Walk 150 ft (QC): 6 Gait Assistive Device: FWW (or cane) Does the Pt use WC or Scooter?: No Stairs (FIM): 5 (household level) # of Steps: 4 1 Step (curb) (QC): 6 4 Steps (QC): 6 12 Steps (QC): 88 Picking up an Object (QC): 4 OT Penitentiary Goals Receivables Specialist Goals Time Frame: Jul 30, 2018 Eating (FIM): 6 (met) Eating (QC): 6 (met) Oral Hygiene (QC): 6 (met) Grooming(FIM): 6 (not met) Bathing(FIM): 6 (not met) Shower/Bathe Self (QC): 6 (not met) Upper Body Dressing(FIM): 6 (not met) Upper Body Dressing (QC): 6 (not met) Lower Body Dressing(FIM): 6 (not met) Lower Body Dressing (QC): 6 (not met) On/Off Footwear (QC): 6 (not met) Toileting(FIM): 6 (met) Toileting Hygiene (QC): 6 (met) Toilet/Commode Transfer(FIM): 6 (met) Toilet/Commode Transfer (QC): 6 (met) Shower Transfer(FIM): 6 Comprehension(FIM): 6 Expression (FIM): 6 Social Interaction(FIM): 5 Problem Solving(FIM): 6 Memory(FIM): 6 Additional Goals: 1-Demonstrate ADL Tasks, 2-Verbalize Understanding, 3- ImproveStrength/Arely 1=Demonstrate adherence to instructed precautions during ADL tasks. 2=Patient will verbalize/demonstrate understanding of assistive devices/ modifications for ADL. 3=Patient will improve strength/tolerance for activity to enable patient to perform ADL's. Speech Penitentiary Goals Receivables Specialist Goals Patient will improve overall function with memory, problem solving and auditory comprehension to be safe in her living environment. Met Comprehension: 6 Expression: 6 Social Interaction: 5 Problem Solvin Memory: 6 YADI PINK OT Jul 28, 2018 14:39
== END 2018-07-26 16:10 | disposition home or self-care (01) | DRG 948 ==
PROVIDERS: ADMIT Physical Medicine & Rehabilitation; ATTEND Physical Medicine & Rehabilitation
DX: R53.1 Weakness (principal); R29.6 Repeated falls; L03.115 Cellulitis of right lower limb; L03.113 Cellulitis of right upper limb; G60.9 Hereditary and idiopathic neuropathy, unspecified; I25.5 Ischemic cardiomyopathy; R41.89 Other symptoms and signs involving cognitive functions and awareness; K59.09 Other constipation; I25.10 Atherosclerotic heart disease of native coronary artery without angina pectoris; R00.1 Bradycardia, unspecified; T46.5X5A Adverse effect of other antihypertensive drugs, initial encounter; I73.9 Peripheral vascular disease, unspecified; H40.9 Unspecified glaucoma; B35.1 Tinea unguium; L57.0 Actinic keratosis; L84 Corns and callosities; Z91.19 Patient's noncompliance with other medical treatment and regimen; I25.2 Old myocardial infarction
CPT/HCPCS: 36415; 80202; 93926

== ENCOUNTER 2019-04-13 13:55 | Observation (INO) | payer MEDICARE, OTHER ==
[~2019-04-13] VITALS: Ht 165.1 cm; Wt 48.6 kg
[~2019-04-13 13:55] MED LIST changes: -RIVA15TA PO; +RIVA15TA2 PO
--- NOTE | 2019-04-13 14:31 | NUR ---
ice pack applied to bruising and swelling on back of scalp
[2019-04-13 14:48] LABS: BASOPHILS % (AUTO) 0 % (0-10); EOSINOPHILS % (AUTO) 0 % (0-10); HEMATOCRIT 39 % (35-52); HEMOGLOBIN 12.7 G/DL (11.5-16.0); LYMPHOCYTES # (AUTO) 0.7 X 10^3 (1.0-4.0); LYMPHOCYTES % (AUTO) 9 % (12-44); MEAN CORPUSCULAR HEMOGLOBIN 32 PG (25-34); MEAN CORPUSCULAR HGB CONC 33 G/DL (32-36); MEAN CORPUSCULAR VOLUME 97 FL (80-99); MEAN PLATELET VOLUME 10.3 FL (7.4-10.4); MONOCYTES # (AUTO) 0.6 X 10^3 (0.0-1.0); MONOCYTES % (AUTO) 9 % (0-12); NEUTROPHILS # (AUTO) 5.8 X 10^3 (1.8-7.8); NEUTROPHILS % (AUTO) 82 % (42-75); PLATELET COUNT 184 10^3/uL (130-400); RED CELL DISTRIBUTION WIDTH 13.8 % (10.0-14.5)
--- NOTE | 2019-04-13 14:51 | Diagnostic Imaging Report ---
PROCEDURE: CT head without contrast. TECHNIQUE: Multiple contiguous axial images were obtained through the brain without the use of intravenous contrast. Auto Exposure Controls were utilized during the CT exam to meet ALARA standards for radiation dose reduction. INDICATION: Fall with right-sided head injury. COMPARISON: Correlation is made with prior head CT from 07/14/2018. FINDINGS: The ventricles and sulci are prominent consistent with the patient's age. Moderate periventricular hypodensity is noted consistent with senescent change. No sulcal effacement is identified. There is no midline shift. No acute intra-axial or extra-axial hemorrhage is detected. The cisterns are patent. The visualized paranasal sinuses are clear. No depressed calvarial fracture is detected. IMPRESSION: Senescent changes. No acute intracranial process is detected. Dictated by: Dictated on workstation # [id number]
[2019-04-13 14:55] LABS: INR 1.2 (0.8-1.4); PROTHROMBIN TIME PATIENT 15.2 SEC (12.2-14.7)
[2019-04-13 15:00] LABS: BILIRUBIN,TOTAL 0.8 MG/DL (0.1-1.0); CALCIUM 8.9 MG/DL (8.5-10.1); CREATININE SERUM 0.98 MG/DL (0.60-1.30); POTASSIUM 4.7 MMOL/L (3.6-5.0); TOTAL PROTEIN 6.6 GM/DL (6.4-8.2)
--- NOTE | 2019-04-13 15:05 | ED Trauma-Multisystem ---
General Chief Complaint: Trauma-Non Activation Stated Complaint: FALL;HEAD INJ Nursing Triage Note: fall, hit head History of Present Illness Date Seen by Provider: Apr 13, 2019 Time Seen by Provider: 14:40 Initial Comments 88-year-old female reports falling in her bathroom sustained an injury to her right temporal region when she hit her shower. She denies loss of consciousness, however it was unwitnessed, her son found her in the bathroom sitting on the floor. She was able to get herself up with some assistance from her son. Her son reports her gait was steady. She reports a trace headache, no neck pain. She denies chest pain prior to fall or now. She does report right breast pain and left buttocks pain. She is taking Plavix 75 mg and ASA [address] Myers, she's had significant cardiac history past. Her last echocardiogram was July 2018 which showed an ejection fraction between 15 and 20%. She has had stents cardiac and peripheral Location Injury Occurred: private residence, restroom Occurred: Just Prior to Arrival Severity: Mild Loss of Consciousness: Unsure Associated Symptoms (Fall): No Abdominal Pain, No Chest Pain, No Confusion, No Dizziness; Headache; No Lightheadedness, No Muscle Spasms, No Nausea/Vomiting, No Neck Pain, No Ringing in Ears, No Seizures, No Shortness of Air, No Slurred Speech, No Trouble Walking, No Vision Changes Allergies and Home Medications Allergies Coded Allergies: amoxicillin (Unverified Allergy, Unknown, 07/14/18) Home Medications Ascorbic Acid 500 Mg Tablet, 500 MG PO DAILY, (Reported) Aspirin 81 Mg Tablet.dr, 81 MG PO DAILY, (Reported) Clopidogrel Bisulfate 75 Mg Tablet, 75 MG PO DAILY, (Reported) Lisinopril 2.5 Mg Tablet, 2.5 MG PO DAILY, (Reported) Metoprolol Succinate 25 Mg Tab.er.24h, 25 MG PO DAILY, (Reported) Patient Home Medication List Home Medication List Reviewed: Yes Review of Systems Review of Systems Constitutional: no symptoms reported, see HPI, other (Fall) Eyes: No Symptoms Reported, See HPI; Denies Blurred Vision, Denies Inflammation, Denies Pain, Denies Vision Changes; Other (pain right temporal region) Ears: No Symptoms Reported, See HPI Nose: No Symptoms Reported, See HPI Mouth: No Symptoms Reported, See HPI Throat: No Symptoms to Report, See HPI All Other Systems Reviewed Negative Unless Noted: Yes Past Yofankv-Zfsifq-Vdgqtk Hx Past Med/Social Hx: Reviewed Nursing Past Med/Soc Hx Patient Social History Alcohol Use: Denies Use Recreational Drug Use: No 2nd Hand Smoke Exposure: No Recent Foreign Travel: No Contact w/Someone Who Travel: No Recent Infectious Disease Expo: No Recent Hopitalizations: No Immunizations Up To Date Tetanus Booster (TDap): Unknown Seasonal Allergies Seasonal Allergies: No Past Medical History Surgeries: Yes (Cardiac and Peripheral in left leg Stent placement) 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 Respiratory: No Cardiac: Yes (CA in 86, 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 0.0oz. 47.110063qi; 16.00 BMI Method:Stated General Appearance: No Apparent Distress, WD/WN Head: Contusions (right temporal region); No Lacerations, No Raccoon Eyes Eyes: Bilateral Eye Normal Inspection, Bilateral Eye PERRL, Bilateral Eye EOMI Ears, Nose, Throat: Hearing Grossly Normal, No Evidence of ENT Injury, No Denta l Injury Neck: Full Range of Motion, Normal Inspection, Non Tender, Supple Cardiovascular: No Edema, No JVD, Normal Peripheral Pulses, Systolic Murmur, Irregularly Irregular Respiratory: Lungs Clear, Normal Breath Sounds, Other (tender right chest wall, anteriorly) Gastrointestinal: Normal Bowel Sounds, Non Tender, Soft Extremity: Normal Capillary Refill, Normal Inspection, Normal Range of Motion, Non Tender Neurologic/Psychiatric: Alert, Oriented x3, No Motor/Sensory Deficits, Normal Mood/Affect Skin: Normal Color, Warm/Dry; No Ecchymosis (none to right chest wall, back or buttocks. ) [place] Coma Score Best Eye Response ([place]): (4) Open Spontaneously Best Verbal Response ([place]): (5) Oriented Best Motor Response ([place]): (6) Obeys Commands [place] Total: 15 Progress/Results/Core Measures Results/Orders Lab Results Laboratory Tests Test 04/13/19 14:21 Range/Units White Blood Count 7.0 4.3-11.0 10^3/uL Red Blood Count 3.98 L 4.35-5.85 10^6/uL Hemoglobin 12.7 11.5-16.0 G/DL Hematocrit 39 35-52 % Mean Corpuscular Volume 97 80-99 FL Mean Corpuscular Hemoglobin 32 25-34 PG Mean Corpuscular Hemoglobin Concent 33 32-36 G/DL Red Cell Distribution Width 13.8 10.0-14.5 % Platelet Count 184 130-400 10^3/uL Mean Platelet Volume 10.3 7.4-10.4 FL Neutrophils (%) (Auto) 82 H 42-75 % Lymphocytes (%) (Auto) 9 L 12-44 % Monocytes (%) (Auto) 9 0-12 % Eosinophils (%) (Auto) 0 0-10 % Basophils (%) (Auto) 0 0-10 % Neutrophils # (Auto) 5.8 1.8-7.8 X 10^3 Lymphocytes # (Auto) 0.7 L 1.0-4.0 X 10^3 Monocytes # (Auto) 0.6 0.0-1.0 X 10^3 Eosinophils # (Auto) 0.0 0.0-0.3 10^3/uL Basophils # (Auto) 0.0 0.0-0.1 10^3/uL Prothrombin Time 15.2 H 12.2-14.7 SEC INR Comment 1.2 0.8-1.4 Activated Partial Thromboplast Time 31 24-35 SEC Sodium Level 137 135-145 MMOL/L Potassium Level 4.7 3.6-5.0 MMOL/L Chloride Level 103 98-107 MMOL/L Carbon Dioxide Level 22 21-32 MMOL/L Anion Gap 12 5-14 MMOL/L Blood Urea Nitrogen 28 H 7-18 MG/DL Creatinine 0.98 0.60-1.30 MG/DL Estimat Glomerular Filtration Rate 54 BUN/Creatinine Ratio 29 Glucose Level 155 H 70-105 MG/DL Calcium Level 8.9 8.5-10.1 MG/DL Corrected Calcium 8.9 8.5-10.1 MG/DL Total Bilirubin 0.8 0.1-1.0 MG/DL Aspartate Amino Transf (AST/SGOT) 27 5-34 U/L Alanine Aminotransferase (ALT/SGPT) 26 0-55 U/L Alkaline Phosphatase 106 40-136 U/L Myoglobin 407.2 H 10.0-92.0 NG/ML Troponin I 0.031 H <0.028 NG/ML Total Protein 6.6 6.4-8.2 GM/DL Albumin 4.0 3.2-4.5 GM/DL My Orders Orders - LUIS ALCARAZ Chest Pa/Lat (2 View) (04/13/19 14:27) Pelvis With Left Hip 2-3 Views (04/13/19 14:27) Ct Head Wo (04/13/19 14:27) Cbc With Automated Diff (04/13/19 14:41) Comprehensive Metabolic Panel (04/13/19 14:41) Troponin I (04/13/19 14:41) Ua Culture If Indicated (04/13/19 14:41) Protime With Inr (04/13/19 14:42) Partial Thromboplastin Time (04/13/19 14:42) Aspirin Chewable Tablet (Baby Aspirin Ch (04/13/19 15:45) Myoglobin Serum (04/13/19 16:05) Medications Given in ED Current Medications Medications Dose Ordered Sig/Isaac Route Start Time Stop Time Status Last Admin Dose Admin Aspirin 324 mg ONCE ONCE PO 04/13/19 15:45 04/13/19 15:46 DC 04/13/19 15:55 324 MG Vital Signs/I&O 04/13/19 04/13/19 14:40 14:40 Temp 36.60256 36.8 Pulse 96 96 Resp 26 B/P (MAP) 147/84 (105) 147/84 (105) Pulse Ox 97 O2 Delivery Room Air Blood Pressure Mean: 105 Progress Progress Note : Time: 14:40 Progress Note Patient seen and evaluated, we'll obtain CT of the head, chest x-ray, pelvis and left hip x-ray. She is declining need for Tylenol. No other complaints at this time. She has no neck pain with range of motion, and neurovascular status is intact bilateral upper extremities, no indication for c-collar CT neck. 1515 CT head negative for acute findings. [address] Appiah, agreed to consult on patient. Dr. Acuna agreed to admit patient. Initial ECG Impression Date: Apr 13, 2019 Initial ECG Impression Time: 14:10 Initial ECG Rate: 88 Initial ECG Intervals [place] 188, QRSD 150, QT 408, QTC 494. [place] P 81, QRS 266, T 71. Initial ECG Impression: Normal Initial ECG Comparisson: Unchanged (from EKG on 07/14/28) Comment Reviewed with Dr. Banerjee agreed with interpretation. Diagnostic Imaging Diagonstic Imaging: CT Plain Films/CT/US/NM/MRI: head Comments NAME: GEO VALLECILLO [facility] REC#: [id number] PT STATUS: REG ER : 1930 PHYSICIAN: LUIS ALCARAZ ADMIT DATE: 04/13/19/ER Draft Date of Exam:04/13/19 CT HEAD WO PROCEDURE: CT head without contrast. TECHNIQUE: Multiple contiguous axial images were obtained through the brain without the use of intravenous contrast. Auto Exposure Controls were utilized during the CT exam to meet ALARA standards for radiation dose reduction. INDICATION: Fall with right-sided head injury. COMPARISON: Correlation is made with prior head CT from 07/14/2018. FINDINGS: The ventricles and sulci are prominent consistent with the patient's age. Moderate periventricular hypodensity is noted consistent with senescent change. No sulcal effacement is identified. There is no midline shift. No acute intra-axial or extra-axial hemorrhage is detected. The cisterns are patent. The visualized paranasal sinuses are clear. No depressed calvarial fracture is detected. IMPRESSION: Senescent changes. No acute intracranial process is detected. Dictated on workstation # [id number] Reviewed: Reviewed by Wy Diagonstic Imaging: Xray Plain Films/CT/US/NM/MRI: chest Comments NAME: GEO VALLECILLO [facility] REC#: [id number] PT STATUS: REG ER : 1930 PHYSICIAN: LUIS ALCARAZ ADMIT DATE: 04/13/19/ER Draft Date of Exam:04/13/19 CHEST PA/LAT (2 VIEW) INDICATION: Fall. Head injury. COMPARISON: 07/15/2018. FINDINGS: Frontal and lateral views of the chest demonstrate mild cardiomegaly. Pulmonary vasculature is within normal limits. Lungs are hyperinflated, but are otherwise clear. There are no signs of infiltrate, pleural effusions or pneumothoraces. The visualized osseous structures show no acute abnormalities. IMPRESSION: 1. Mild cardiomegaly, but no evidence of failure or focal infiltrate. 2. Background COPD changes. Dictated on workstation # [id number] Dict: 04/13/19 1458 Trans: 04/13/19 1507 [id number] Interpreted by: LEE SANZ MD Electronically signed by: Reviewed: Reviewed by Me Diagonstic Imaging: Xray Plain Films/CT/US/NM/MRI: pelvis, hip Comments [facility], [place] NAME: GEO VALLECILLO [facility] REC#: [id number] PT STATUS: REG ER : 1930 PHYSICIAN: LUIS ALCARAZ ADMIT DATE: 04/13/19/ER Draft Date of Exam:04/13/19 PELVIS WITH LEFT HIP 2-3 VIEWS INDICATION: Pain status post fall. COMPARISON: None. FINDINGS: An AP view of the pelvis and two dedicated radiographic views of the left hip were obtained. There is no fracture, dislocation, bone destruction, or radiopaque foreign body. The visualized pelvic osseous structures and the SI joints demonstrate no acute fracture or dislocation. There is no bone destruction or radiopaque foreign body. The surrounding soft tissue structures are unremarkable. An indwelling metallic vascular stent is noted in the proximal left thigh. Note is also made of moderate colonic air and stool. IMPRESSION: No acute fracture or dislocation in the pelvis or left hip. Dictated on workstation # [id number] Dict: 04/13/19 1459 Trans: 04/13/19 1508 [id number] Interpreted by: LEE SANZ MD Electronically signed by: Reviewed: Reviewed by Me Departure Impression Primary Impression: Fall Qualified Codes: W19.XXXA - Unspecified fall, initial encounter Additional Impressions: CHF (congestive heart failure) Qualified Codes: I50.9 - Heart failure, unspecified Ischemic cardiomyopathy Head contusion Qualified Codes: S00.03XA - Contusion of scalp, initial encounter Disposition: ADMITTED INPATIENT Condition: Improved Admissions Decision to Admit Reason: Admit from ER (General) Decision to Admit/Date: Apr 13, 2019 Time/Decision to Admit Time: 16:00 Departure-Patient Inst. Referrals: NO,LOCAL PHYSICIAN (PCP/Family) Primary Care Physician LUIS ALCARAZ Apr 13, 2019 15:05
--- NOTE | 2019-04-13 15:08 | Diagnostic Imaging Report ---
INDICATION: Pain status post fall. COMPARISON: None. FINDINGS: An AP view of the pelvis and two dedicated radiographic views of the left hip were obtained. There is no fracture, dislocation, bone destruction, or radiopaque foreign body. The visualized pelvic osseous structures and the SI joints demonstrate no acute fracture or dislocation. There is no bone destruction or radiopaque foreign body. The surrounding soft tissue structures are unremarkable. An indwelling metallic vascular stent is noted in the proximal left thigh. Note is also made of moderate colonic air and stool. IMPRESSION: No acute fracture or dislocation in the pelvis or left hip. Dictated by: Dictated on workstation # [id number]
[2019-04-13] MEDS ORDERED: ASPIRIN 81 MG CHEW (CHILDREN'S ASA) PO ONE (15:45)
--- NOTE | 2019-04-13 16:00 | NUR ---
pt sitting in ED bed quietly with family at side, pt shows no s/s of distress, pt denies any needs or c/o at this time, will continue to monitor
--- NOTE | 2019-04-13 17:23 | NUR ---
GEO VALLECILLO admitted to room 408-1, with an admitting diagnosis of fall head injury, on 04/13/19 from ED via wheelchair, accompanied by staff and family .GEO VALLECILLO introduced to surroundings, call light, bed controls, phone, TV, temperature control, lights, meal times, smoking policy, visitor policy, side rail policy, bathrooms and showers. Patient Rights given to patient in the handbook. GEO VALLECILLO verbalizes understanding that [facility] is not responsible for the loss or damage to any personal effects or valuables that are kept in the patients posession during their hospitalization. The following Patient Care Plans and discharge were discussed with the patient and family. GEO VALLECILLO verbalizes understanding of Interdisciplinary Patient Education. Patient and family were informed about the Rapid Response Team and its purpose.
[2019-04-13] MEDS ORDERED: CATHETER FLUSH 10 ML SYR IV PRN (17:30)
[2019-04-13] MEDS ORDERED: NS IV 1000 ML 1,000 ML IV SCH (17:30)
[2019-04-13] MEDS ORDERED: ONDANSETRON 4 MG/2 ML (SDV) Z0FRAN IV PRN (17:30)
[2019-04-13] MEDS ORDERED: ACETAMINOPHEN 325 MG TABLET PO PRN (17:30)
[2019-04-13 17:45] VITALS: BP 110/63
[2019-04-13 20:36] VITALS: BP 124/72
[2019-04-14] VITALS (7 sets, daily range): BP systolic 117–151; BP diastolic 65–81
[2019-04-14 06:02] LABS: BASOPHILS % (AUTO) 0 % (0-10); EOSINOPHILS % (AUTO) 1 % (0-10); HEMATOCRIT 37 % (35-52); HEMOGLOBIN 11.9 G/DL (11.5-16.0); LYMPHOCYTES # (AUTO) 1.1 X 10^3 (1.0-4.0); LYMPHOCYTES % (AUTO) 26 % (12-44); MEAN CORPUSCULAR HEMOGLOBIN 31 PG (25-34); MEAN CORPUSCULAR HGB CONC 32 G/DL (32-36); MEAN CORPUSCULAR VOLUME 98 FL (80-99); MONOCYTES # (AUTO) 0.4 X 10^3 (0.0-1.0); MONOCYTES % (AUTO) 9 % (0-12); NEUTROPHILS # (AUTO) 2.8 X 10^3 (1.8-7.8); NEUTROPHILS % (AUTO) 65 % (42-75); PLATELET COUNT 167 10^3/uL (130-400); WHITE BLOOD COUNT 4.2 10^3/uL (4.3-11.0)
[2019-04-14 06:34] LABS: ALANINE AMINOTRANSFERASE 24 U/L (0-55); ALBUMIN 3.3 GM/DL (3.2-4.5); ALKALINE PHOSPHATASE 96 U/L (40-136); BILIRUBIN,TOTAL 1.1 MG/DL (0.1-1.0); BUN/CREATININE RATIO 31; CALCIUM 8.1 MG/DL (8.5-10.1); CARBON DIOXIDE 24 MMOL/L (21-32); CHLORIDE 106 MMOL/L (98-107); GFR ESTIMATED > 60; GLUCOSE 88 MG/DL (70-105); POTASSIUM 4.5 MMOL/L (3.6-5.0); SODIUM 138 MMOL/L (135-145); TOTAL PROTEIN 5.5 GM/DL (6.4-8.2)
--- NOTE | 2019-04-14 07:52 | Consultation-Cardiology ---
HPI-Cardiology Cardiology Consultation: Date of Consultation 04/14/19 Time Seen by a Provider: 08:45 Date of Admission 04-13-19 Attending Physician Etta Acuna MD Admitting Physician Julia,Local Physician Consulting Physician Megha Myers HPI: Chief Complaint: Unwitnessed fall ?Syncope Ms. Hogan is an 88 year old female who has been admitted to [facility] from the ED. She is currently sitting up in a chair at the bedside. She states she was washing clothes in her bath tub at home and she lost her balance and fell backwards hitting her head on the side of the tub. She reports this was approx 9:30 in the morning and she was unable to get up off the floor. She states she stayed on the floor until around 12:00 when her son came home to check on her. She was then brought to the ED. She denies any c/o CP, palpitations, dyspnea or LE swelling. She reports she has been taking her Plavix, ASA and Toprol XL only intermittently. She is reporting her head hurts where she hit it on the bathtub. Review of Systems-Cardiology Review of Systems Constitutional: No chills, No fever Eyes: No vision change Ears/Nose/Throat: No epistaxis, No recent hearing loss Respiratory: As described under HPI Cardiovascular: As described under HPI Gastrointestinal: No diarrhea, No nausea, No vomiting Genitourinary: No dysuria, No hematuria Musculoskeletal: As describe under HPI Skin: No rash on exposed areas, No ulcerations on exposed areas Psychiatric/Neurological: As described under HPI Hematologic: No bleeding abnormalities All Other Systems Reviewed Negative Unless Noted: Yes SDN-Wmvmpn-Ytcyop Hx Patient Social History Alcohol Use: Denies Use Recreational Drug Use: No 2nd Hand Smoke Exposure: No Recent Foreign Travel: No Recent Infectious Disease Expo: No Hospitalization with Isolation: Denies Immunizations Up To Date Tetanus Booster (TDap): Unknown Past Medical History PMH As described under Assessment. Family Medical History Family Medical History: She reports that her brother had an VT at age 59 Family History: Hypertension 19 FATHER Allergies and Home Medications Allergies Coded Allergies: amoxicillin (Unverified Allergy, Unknown, 07/14/18) Home Medications Ascorbic Acid 500 Mg Tablet, 500 MG PO DAILY, (Reported) Aspirin 81 Mg Tablet.dr, 81 MG PO DAILY, (Reported) Clopidogrel Bisulfate 75 Mg Tablet, 75 MG PO DAILY, (Reported) Lisinopril 2.5 Mg Tablet, 2.5 MG PO DAILY, (Reported) Metoprolol Succinate 25 Mg Tab.er.24h, 25 MG PO DAILY, (Reported) Patient Home Medication List Home Medication List Reviewed: Yes Physical Exam-Cardiology Physical Exam Vital Signs/I&O 04/14/19 04/14/19 04/14/19 04/14/19 00:20 01:00 04:15 07:00 Temp 36.6 36.5 Pulse 66 62 53 65 Resp 16 17 B/P (MAP) 121/65 121/69 Pulse Ox 93 97 O2 Delivery Room Air Room Air 04/14/19 08:00 Pulse Ox 98 O2 Delivery Room Air 04/14/19 00:00 Intake Total 240 ml Balance 240 ml Capillary Refill : Less Than 3 Seconds Constitutional: AAO x 3, other (frail, thin) HEENT: PERRL, hearing is well preserved Neck: No carotid bruit; carotid pulses are 2 + bilaterally Respiratory: No accessory muscle use, No respiratory distress; chest expansion is symmetric, chest is bilaterally symmetric, lungs clear to auscultation Cardiovascular: regular rate-rhythm; No JVD; S1 and S2, systolic murmur Gastrointestinal: No tender; soft, round, audible bowel sounds Rectal: deferred Extremities: no lower extremity edema bilateral Neurologic/Psychiatric: grossly intact Skin: No ulcerations Data Review Labs Laboratory Tests 04/13/19 14:21: White Blood Count 7.0, Red Blood Count 3.98L, Hemoglobin 12.7, Hematocrit 39, Mean Corpuscular Volume 97, Mean Corpuscular Hemoglobin 32, Mean Corpuscular Hemoglobin Concent 33, Red Cell Distribution Width 13.8, Platelet Count 184, Mean Platelet Volume 10.3, Neutrophils (%) (Auto) 82H, Lymphocytes (%) (Auto) 9L , Monocytes (%) (Auto) 9, Eosinophils (%) (Auto) 0, Basophils (%) (Auto) 0, Neutrophils # (Auto) 5.8, Lymphocytes # (Auto) 0.7L, Monocytes # (Auto) 0.6, Eosinophils # (Auto) 0.0, Basophils # (Auto) 0.0, Prothrombin Time 15.2H, INR Comment 1.2, Activated Partial Thromboplast Time 31, Sodium Level 137, Potassium Level 4.7, Chloride Level 103, Carbon Dioxide Level 22, Anion Gap 12, Blood Urea Nitrogen 28H, Creatinine 0.98, Estimat Glomerular Filtration Rate 54, BUN/Creatinine Ratio 29, Glucose Level 155H, Calcium Level 8.9, Corrected Calcium 8.9, Total Bilirubin 0.8, Aspartate Amino Transf (AST/SGOT) 27, Alanine Aminotransferase (ALT/SGPT) 26, Alkaline Phosphatase 106, Myoglobin 407.2H, Troponin I 0.031H, Total Protein 6.6, Albumin 4.0 04/13/19 18:15: Troponin I 0.051H 04/14/19 05:41: White Blood Count 4.2L, Red Blood Count 3.82L, Hemoglobin 11.9, Hematocrit 37, Mean Corpuscular Volume 98, Mean Corpuscular Hemoglobin 31, Mean Corpuscular Hemoglobin Concent 32, Red Cell Distribution Width 14.0, Platelet Count 167, Mean Platelet Volume 10.0, Neutrophils (%) (Auto) 65, Lymphocytes (%) (Auto) 26, Monocytes (%) (Auto) 9, Eosinophils (%) (Auto) 1, Basophils (%) (Auto) 0, Neutrophils # (Auto) 2.8, Lymphocytes # (Auto) 1.1, Monocytes # (Auto) 0.4, Eosinophils # (Auto) 0.0, Basophils # (Auto) 0.0, Sodium Level 138, Potassium Level 4.5, Chloride Level 106, Carbon Dioxide Level 24, Anion Gap 8, Blood Urea Nitrogen 25H, Creatinine 0.80, Estimat Glomerular Filtration Rate > 60, BUN/Creatinine Ratio 31, Glucose Level 88, Calcium Level 8.1L, Corrected Calcium 8.7, Total Bilirubin 1.1H, Aspartate Amino Transf (AST/SGOT) 31, Alanine Aminotransferase (ALT/SGPT) 24, Alkaline Phosphatase 96, Total Protein 5.5L, Albumin 3.3 Radiology NAME: GE[facility]AN [facility] REC#: [id number] PT STATUS: REG ER : 1932 PHYSICIAN: LUIS ALCARAZ ADMIT DATE: 04/13/19/ER Signed Date of Exam: 04/13/19 CT HEAD WO PROCEDURE: CT head without contrast. TECHNIQUE: Multiple contiguous axial images were obtained through the brain without the use of intravenous contrast. Auto Exposure Controls were utilized during the CT exam to meet ALARA standards for radiation dose reduction. INDICATION: Fall with right-sided head injury. COMPARISON: Correlation is made with prior head CT from 07/14/2018. FINDINGS: The ventricles and sulci are prominent consistent with the patient's age. Moderate periventricular hypodensity is noted consistent with senescent change. No sulcal effacement is identified. There is no midline shift. No acute intra-axial or extra-axial hemorrhage is detected. The cisterns are patent. The visualized paranasal sinuses are clear. No depressed calvarial fracture is detected. IMPRESSION: Senescent changes. No acute intracranial process is detected. Dictated by: Dictated on workstation # [id number] Dict: 04/13/19 1447 Trans: 04/13/19 1542 Interpreted by: ZACKARY RUEDA MD Electronically signed by: ZACKARY RUEDA MD 04/13/19 5944 A/P-Cardiology Assessment/Admission Diagnosis Unwitnessed fall - by pt report non-syncopal Minimal troponin elevation possibly d/t transient hypoxia, no evidence of VT H/O wound on the lateral aspect of L leg (leading to peripheral arterial eval and interventions to the L leg, as noted below) - healed PAD. Peripheral angio of 07/10/17: ectatic abdominal aorta, aorto-iliac calcification, mod dz of renal arteries, diffuse mod disease of both sup fems, 90% ostial and prox stenosis of the L sup fem, single vessel (ant tibial) run off in both legs with 90% ostial stenoses of both ant tibs Peripheral PCI on 07/10/17: balloon angioplasty of ostial L ant tib that reduced 90% ostial stenosis to less than 30% residual, balloon angioplasty and stenting (Absolute Pro 7 x 80 stent, dilated to 5 mm wilder) to the L prox sup fem that reduced stenosis form 90% to 0% residual Seg pressures of 07/08/17 showed mild to mod PAD of the R leg (WALTER 0.85 on the R and TBI 0.74 on the R) and moderate to mod severe PAD of the L leg (WALTER 0.62 on the L and TBI 0.38 on the L); repeat seg pressures of 07/15/17 (post L-sided int ervention) much improved (R WALTER 1.01, R TBI, 0.81; L WALTER 1.06, L TBI 0.82) Ischemic cardiomyopathy. Card cath of 05/08/15 showed coronary artery disease, primarily single-vessel, primarily consisting of 90% mid vessel stenosis of the left anterior descending, to which successful stenting was carried out with Promus Premier 3 x 12 mm stent with reduction of stenosis to 0% residual. 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 Most recent echo of January 25, 2018 showed LVEF 15-20%. She has refused ICD placement Echocardiogram of January 25, 2018 LVEF 15-20%. Akinesis of the anteroseptal myocardium. Features consistent with a pseudonormal LV filling pattern with concomitant abnormal relaxation and increased filling pressure (grade 2 diastolic dysfunction). Mild MR. PASP 35-40mmHg Hypertension Impaired fasting glucose Family h/o early CAD 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 u/s of 02/15/16 Noncompliance with several med instructions (BB tx) Discussion and Recomendations Unwitnessed fall, by pt description does not seem to be syncopal Minimal troponin elevation possibly d/t transient hypoxemia Check orthostatic v/s today Echocardiogram today Stop IVF Ok to discharge from cardiac stand point if she continues to do well We would like to thank medical services for this consult Clinical Quality Measures DVT/VTE Risk/Contraindication: Risk Factor Score Per Nursin RFS Level Per Nursing on Admit: 4+=Very High ELEN LOZANO Apr 14, 2019 07:52
[2019-04-14] MEDS ORDERED: CLOP75TA28 PO (08:39)
--- NOTE | 2019-04-14 09:09 | NUR ---
SPOKE WITH THE PATIENT ABOUT HER MEDICATIONS. SHE LISTED WHAT SHE TAKES AND I VERIFIED IT WITH THE EXT MED HX. SHE STATES SHE ALSO TAKES AN OTC ASPIRIN 81MG DAILY.
--- NOTE | 2019-04-14 09:36 | Physical Therapy Evaluation ---
PT Evaluation-General Medical Diagnosis Admission Date Apr 13, 2019 at 16:30 Medical Diagnosis: fall/head injury Onset Date: Apr 13, 2019 Therapy Diagnosis Therapy Diagnosis: debility/weakness Height/Weight Height (Feet): 5 Height (Inches): 5.00 Weight (Pounds): 107 Weight (Ounces): 1.0 Precautions Precautions/Isolations: Fall Prevention, Standard Precautions Referral Physician: Kalpana Reason for Referral: Evaluation/Treatment Medical History Pertinent Medical History: CAD, Heart Failure, NC Current History s/p fall at home hitting head on tub and on floor x 3 hours per patient report Reviewed History: Yes Social History Home: Single Level Current Living Status: Alone Prior/Core FIM Prior Level of Function Therapy Code Descriptions/Definitions Functional [place] Measure: 0=Not Assessed/NA 4=Minimal Assistance 1=Total Assistance 5=Supervision or Setup 2=Maximal Assistance 6=Modified [place] 3=Moderate Assistance 7=Complete [place] Therapy Quality Codes: 6 Independent with activity with or without an assistive device 5 Patient requires set up or clean up by helper. Patient completes activity by themselves 4 Supervision or touching assist (CGA). Cocoa provide cues , steadying assist 3 The helper provides less than half the effort to complete the activity 2 The helper provides more than half the effort to complete the activity 1 Dependent. The helper does all the effort to complete an activity 7 Patient refused to complete or attempt activity 9 The patient did not perform the activity before the current illness or injury 88 Not attempted due to Medical conditions or safety concerns Functional Abilities and Goals: Independent: Patient completed the activities by him/herself, with or without an assistive device, with no assistance from a helper. Needed Some Help: Patient needed partial assistance from another person to complete activities. Dependent: A helper completed the activities for the patient. Unknown: Not Applicable: Bed Mobility: 6 Transfers (B,C,W/C) (FIM): 6 Gait: 7 Indoor Mobility (Ambulation): Independent Prior Devices Use: None patient reports she has FWW but does not use and has multiple falls at home/she reports son is there half of the time PT Evaluation-Current Subjective Patient reluctantly agrees to PT. She reports fatigue. Pain Numeric Pain Scale: 5-Moderate Pain Location: Soft Tissue Location Body Site: Sacrum Pain Description: Acute Objective Patient Orientation: Person, Time, Situation Problem Solving: Fair Attachments: IV ROM/Strength ROM Lower Extremities bilateral LE WFL Strength Lower Extremities 3/5 grossly bilateral LE Integumentary/Posture Integumentary refer to nursing notes Bowel Incontinence: No Bladder Incontinence: No Posture WFL/slightly kyphotic Neuromuscular (Tone, Coordination, Reflexes) grossly intact Sensory Vision: Wears Glasses Hearing: Impaired Sensation Right Lower Extremit: Impaired Sensation Left Lower Extremity: Impaired Transfers Therapy Code Descriptions/Definitions Functional [place] Measure: 0=Not Assessed/NA 4=Minimal Assistance 1=Total Assistance 5=Supervision or Setup 2=Maximal Assistance 6=Modified [place] 3=Moderate Assistance 7=Complete [place] Transfers (B, C, W/C) (FIM): 4 Scootin Rollin Supine to/from Sit: 5 Sit to/from Stand: 4 CGA for safety/patient required 2 attempts to perform sit to stand secondary to initial retropulsion then recovered Gait Mode of Locomotion: Walk Anticipated Mode of Locomotion: Walk Gait (FIM): 4 Distance (FIM): 3=150 ft Distance: 150' Gait Level of Assist: 4 Gait Persons Needed: 1 Gait Assistive Device: FWW Comments/Gait Description CGA for safety due to slight unsteadiness Balance Sitting Static: Fair Sitting Dynamic: Fair Standing Static: Fair Standing Dynamic: Fair Assessment/Needs 88 y.o. female, will benefit from skilled PT to address functional strength and mobility to improve current LOF to safely return to home or care facility at [facility]. From a PT standpoint, patient may benefit from extended care facility due to current status and motivation level. Rehab Potential: Fair PT Long-Term Goals Long-Term Goals PT Long-Term Goals Time Frame: Apr 23, 2019 Transfers (B,C,W/C) (FIM): 6 Gait (FIM): 6 Gait distance (FIM): 3=150 ft Distance: 200' Gait Level of Assist: 6 Gait Assistive Device: FWW PT Plan Problem List Problem List: Activity Tolerance, Functional Strength, Safety, Balance, Gait, Transfer, Bed Mobility Treatment/Plan Treatment Plan: Continue Plan of Care Treatment Plan: Bed Mobility, Education, Functional Activity Arely, Functional Strength, Gait, Safety, Therapeutic Exercise, Transfers Treatment Duration: Apr 23, 2019 Frequency: 6 times per week Estimated Hrs Per Day: .25 hour per day Patient and/or Family Agrees t: Yes Safety Risks/Education Patient Education: Safety Issues Teaching Recipient: Patient Teaching Methods: Demonstration, Discussion Response to Teaching: Verbalize Understanding, Reinforcement Needed Discharge Recommendations Therapy Discharge Recommendati: Other, See Comments (senior living ) Time/GCodes Time In: 825 Time Out: 840 Total Billed Treatment Time: 15 Total Billed Treatment 1 visit EVMod 15 min ROOPA FORMAN PT Apr 14, 2019 09:36
--- NOTE | 2019-04-14 12:34 | History & Physical-Hospitalist ---
History of Present Illness HPI/Chief Complaint Pt is an 88yoCF with a PMH of ischemic cardiomyopathy, HTN, CAD, pAF who presented to the ER after a fall. She states she was cleaning clothes in the lavatory and she fell back. She denies any LOC or hitting her head. She does not believe she tripped either. She is unsure the mechanism of her fall but was unable to get herself up. She was on the ground for around 3 hours before her son got home to help her up. He then brought her to the ER for evaluation. She states she is still feelingn quite weak today. She also looks SOB but denies this when asked. She has no other complaints. Source: patient Exam Limitations: no limitations Date Seen 04/14/19 Time Seen by a Provider: 12:33 Attending Physician Andrei Acuna MD PCP No,Local Physician Referring Physician Date of Admission Apr 13, 2019 at 4:30 pm Home Medications & Allergies Home Medications Reviewed patient Home Medication Reconciliation performed by pharmacy medication reconciliations blood or blood bank technician and/or nursing. Patients Allergies have been reviewed. Allergies Allergies Coded Allergies amoxicillin (Unverified Allergy, Unknown, 07/14/18) Past Yvniyew-Cveosj-Uiaedr Hx Past Med/Social Hx: Reviewed Nursing Past Med/Soc Hx Patient Social History Employed/Student: retired Alcohol Use: Denies Use Recreational Drug Use: No Smoking Status: Unknown if Ever Smoked 2nd Hand Smoke Exposure: No Recent Foreign Travel: No Contact w/other who traveled: No Recent Hopitalizations: No Recent Infectious Disease Expo: No Immunizations Up To Date Tetanus Booster (TDap): Unknown Seasonal Allergies Seasonal Allergies: No Past Medical History Surgeries: 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 Cardiac: Cardiomyopathy, Coronary Artery Disease, Heart Attack, Hypertension : No 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 Gastrointestinal: Chronic Constipation HEENT: Glaucoma Cancer: Skin Skin/Integumentary: Recent Skin Changes History of Blood Disorders: No Adverse Reaction to Blood [place]: No Family History Reviewed Nursing Family Hx Hypertension 19 FATHER No Pertinent Family Hx Review of Systems Constitutional: No chills, No diaphoresis, No fever; weakness EENTM: no symptoms reported Respiratory: No cough, No dyspnea on exertion; short of breath Cardiovascular: No chest pain, No edema; Hx of Intervention; No palpitations Gastrointestinal: no symptoms reported Musculoskeletal: no symptoms reported Skin: no symptoms reported Psychiatric/Neurological: No Symptoms Reported Physical Exam Physical Exam Vital Signs Vital Signs - First Documented Capillary Refill : Less Than 3 Seconds Height, Weight, BMI Height: 5'5.00" Weight: 107lbs. 1.0oz. 48.871454ln; 16.89 BMI Method:Stated General Appearance: No Apparent Distress, Chronically ill, Cachetic, Thin HEENT: Moist Mucous Membranes; No Scleral Icterus (L), No Scleral Icterus (R) Neck: Normal Inspection, Supple; No Thyromegaly Respiratory: Lungs Clear, No Accessory Muscle Use, No Respiratory Distress Cardiovascular: Regular Rate, Rhythm, No Murmur Gastrointestinal: Normal Bowel Sounds, Non Tender, Soft Extremity: No Calf Tenderness, No Pedal Edema Neurologic/Psychiatric: Alert, Oriented x3, Normal Mood/Affect Skin: Normal Color, Ecchymosis Results Results/Procedures Labs Laboratory Tests 04/13/19 14:21 04/14/19 05:41 Patient resulted labs reviewed. Imaging: Reviewed Imaging Report Assessment/Plan Admission Diagnosis Unwitnessed fall Admission Status: Observation Assessment and Plan Unwitnessed fall Concern for possible syncope, admitted for obs telemetry Cardiology consulted, appreciate recs orthostatics Elevated troponin Cardiology consulted, apprecriate recs Debility/Weakness PT/OT Cardiomyopathy, severe ischemic Appears compensated Cardiology consulted HTN Well controlled Discharge planning multiple falls per history Discussed with SW, appreciate assistance Likely will need HH at DC Diagnosis/Problems Diagnosis/Problems (1) Head contusion Status: Acute Qualifiers: Encounter type: initial encounter Contusion of head detail: scalp Qualified Codes: S00.03XA - Contusion of scalp, initial encounter (2) Ischemic cardiomyopathy Status: Chronic (3) Fall Status: Acute Qualifiers: Encounter type: initial encounter Qualified Codes: W19.XXXA - Unspecified fall, initial encounter (4) CHF (congestive heart failure) Status: Acute Qualifiers: Heart failure type: unspecified Heart failure chronicity: chronic Qualified Codes: I50.9 - Heart failure, unspecified Clinical Quality Measures DVT/VTE Risk/Contraindication: Risk Factor Score Per Nursin RFS Level Per Nursing on Admit: 4+=Very High ANDREI ACUNA MD Apr 14, 2019 12:34 pm
--- NOTE | 2019-04-14 12:42 | Consultation-Cardiology ---
HPI-Cardiology Cardiology Consultation: Date of Consultation 04/14/19 Time Seen by a Provider: 09:00 Date of Admission Attending Physician Etta Acuna MD Admitting Physician No,Local Physician Consulting Physician DAWNA FOOTE MD, MA, FACP, FACC, [facility] [place], CCDS Physician requesting consult: Dr Acuna HPI: Chief Complaint: Reason for consultation: Fall at home HPI Ms. Hogan is an 88 year old female who has been admitted to [facility] from the ED. She is currently sitting up in a chair at the bedside. She states she was washing clothes in her bath tub at home and she lost her balance and fell backwards hitting her head on the side of the tub. She reports this was approx 9:30 in the morning and she was unable to get up off the floor. She states she stayed on the floor until around 12:00 when her son came home to check on her. She was then brought to the ED. She denies any c/o CP, palpitations, dyspnea or LE swelling. She reports she has been taking her Plavix, ASA and Toprol XL only intermittently. She is reporting her head hurts where she hit it on the bathtub. Review of Systems-Cardiology Review of Systems Constitutional: No chills, No fever Eyes: No vision change Ears/Nose/Throat: No epistaxis, No recent hearing loss Respiratory: As described under HPI Cardiovascular: As described under HPI Gastrointestinal: No diarrhea, No nausea, No vomiting Genitourinary: No dysuria, No hematuria Musculoskeletal: As describe under HPI Skin: No rash on exposed areas, No ulcerations on exposed areas Psychiatric/Neurological: As described under HPI Hematologic: No bleeding abnormalities All Other Systems Reviewed Negative Unless Noted: Yes [id number] Hx Patient Social History Alcohol Use: Denies Use Recreational Drug Use: No 2nd Hand Smoke Exposure: No Recent Foreign Travel: No Recent Infectious Disease Expo: No Hospitalization with Isolation: Denies Immunizations Up To Date Tetanus Booster (TDap): Unknown Past Medical History PMH As described under Assessment. Family Medical History Family Medical History: She reports that her brother had an ND at age 59 Family History: Hypertension 19 FATHER Allergies and Home Medications Allergies Coded Allergies: amoxicillin (Unverified Allergy, Unknown, 07/14/18) Home Medications Aspirin 81 Mg Tablet., 81 MG PO DAILY, (Reported) Clopidogrel Bisulfate 75 Mg Tablet, 75 MG PO DAILY, (Reported) Lisinopril 2.5 Mg Tablet, 2.5 MG PO DAILY, (Reported) Metoprolol Succinate 25 Mg Tab.er.24h, 25 MG PO DAILY, (Reported) Patient Home Medication List Home Medication List Reviewed: Yes Physical Exam-Cardiology Physical Exam Vital Signs/I&O 04/14/19 04/14/19 04/14/19 04/14/19 01:00 04:15 07:00 08:00 Temp 36.5 36.2 Pulse 62 53 65 74 Resp 17 18 B/P (MAP) 121/69 129/80 Pulse Ox 97 100 O2 Delivery Room Air Room Air 04/14/19 04/14/19 04/14/19 08:00 10:24 12:00 Temp 36.6 Pulse 80 79 Resp 20 B/P (MAP) 117/71 (86) 132/66 Pulse Ox 98 96 O2 Delivery Room Air Room Air 04/14/19 00:00 Intake Total 240 ml Balance 240 ml Capillary Refill : Less Than 3 Seconds Constitutional: AAO x 3, other (frail, thin) HEENT: PERRL, hearing is well preserved Neck: No carotid bruit; carotid pulses are 2 + bilaterally Respiratory: No accessory muscle use, No respiratory distress; chest expansion is symmetric, chest is bilaterally symmetric, lungs clear to auscultation Cardiovascular: regular rate-rhythm; No JVD; S1 and S2, systolic murmur Gastrointestinal: No tender; soft, round, audible bowel sounds Rectal: deferred Extremities: no lower extremity edema bilateral Neurologic/Psychiatric: grossly intact Skin: No ulcerations Data Review Labs Laboratory Tests 04/13/19 14:21: White Blood Count 7.0, Red Blood Count 3.98L, Hemoglobin 12.7, Hematocrit 39, Me an Corpuscular Volume 97, Mean Corpuscular Hemoglobin 32, Mean Corpuscular Hemoglobin Concent 33, Red Cell Distribution Width 13.8, Platelet Count 184, Mean Platelet Volume 10.3, Neutrophils (%) (Auto) 82H, Lymphocytes (%) (Auto) 9L , Monocytes (%) (Auto) 9, Eosinophils (%) (Auto) 0, Basophils (%) (Auto) 0, Neutrophils # (Auto) 5.8, Lymphocytes # (Auto) 0.7L, Monocytes # (Auto) 0.6, Eosinophils # (Auto) 0.0, Basophils # (Auto) 0.0, Prothrombin Time 15.2H, INR Comment 1.2, Activated Partial Thromboplast Time 31, Sodium Level 137, Potassium Level 4.7, Chloride Level 103, Carbon Dioxide Level 22, Anion Gap 12, Blood Urea Nitrogen 28H, Creatinine 0.98, Estimat Glomerular Filtration Rate 54, BUN/Creatinine Ratio 29, Glucose Level 155H, Calcium Level 8.9, Corrected Calci um 8.9, Total Bilirubin 0.8, Aspartate Amino Transf (AST/SGOT) 27, Alanine Aminotransferase (ALT/SGPT) 26, Alkaline Phosphatase 106, Myoglobin 407.2H, Troponin I 0.031H, Total Protein 6.6, Albumin 4.0 04/13/19 18:15: Troponin I 0.051H 04/14/19 05:41: White Blood Count 4.2L, Red Blood Count 3.82L, Hemoglobin 11.9, Hematocrit 37, Mean Corpuscular Volume 98, Mean Corpuscular Hemoglobin 31, Mean Corpuscular Hemoglobin Concent 32, Red Cell Distribution Width 14.0, Platelet Count 167, Mean Platelet Volume 10.0, Neutrophils (%) (Auto) 65, Lymphocytes (%) (Auto) 26, Monocytes (%) (Auto) 9, Eosinophils (%) (Auto) 1, Basophils (%) (Auto) 0, Neutrophils # (Auto) 2.8, Lymphocytes # (Auto) 1.1, Monocytes # (Auto) 0.4, Eo sinophils # (Auto) 0.0, Basophils # (Auto) 0.0, Sodium Level 138, Potassium Level 4.5, Chloride Level 106, Carbon Dioxide Level 24, Anion Gap 8, Blood Urea Nitrogen 25H, Creatinine 0.80, Estimat Glomerular Filtration Rate > 60, BUN/Creatinine Ratio 31, Glucose Level 88, Calcium Level 8.1L, Corrected Calcium 8.7, Total Bilirubin 1.1H, Aspartate Amino Transf (AST/SGOT) 31, Alanine Aminotransferase (ALT/SGPT) 24, Alkaline Phosphatase 96, Total Protein 5.5L, Albumin 3.3 Laboratory Tests 04/13/19 14:21 04/14/19 05:41 A/P-Cardiology Assessment/Admission Diagnosis Non-syncopal fall (lost balance, according to the patient) Minimal troponin elevation possibly d/t transient hypoxia, no evidence of ND H/o wound on the lateral aspect of L leg (leading to peripheral arterial eval and interventions to the L leg, as noted below) - healed PAD. Peripheral angio of 07/10/17: ectatic abdominal aorta, aorto-iliac calcification, mod dz of renal arteries, diffuse mod disease of both sup fems, 90% ostial and prox stenosis of the L sup fem, single vessel (ant tibial) run off in both legs with 90% ostial stenoses of both ant tibs Peripheral PCI on 07/10/17: balloon angioplasty of ostial L ant tib that reduced 90% ostial stenosis to less than 30% residual, balloon angioplasty and stenting (Absolute Pro 7 x 80 stent, dilated to 5 mm wilder) to the L prox sup fem that reduced stenosis form 90% to 0% residual Seg pressures of 07/08/17 showed mild to mod PAD of the R leg (WALTER 0.85 on the R and TBI 0.74 on the R) and moderate to mod severe PAD of the L leg (WALTER 0.62 on the L and TBI 0.38 on the L); repeat seg pressures of 07/15/17 (post L-sided intervention) much improved (R WALTER 1.01, R TBI, 0.81; L WALTER 1.06, L TBI 0.82) Ischemic cardiomyopathy. Card cath of 05/08/15 showed coronary artery disease, primarily single-vessel, primarily consisting of 90% mid vessel stenosis of the left anterior descending, to which successful stenting was carried out with Promus Premier 3 x 12 mm stent with reduction of stenosis to 0% residual. 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 Most recent echo of January 25, 2018 showed LVEF 15-20%. She has refused ICD placement Echocardiogram of January 25, 2018 LVEF 15-20%. Akinesis of the anteroseptal myocardium. Features consistent with a pseudonormal LV filling pattern with concomitant abnormal relaxation and increased filling pressure (grade 2 diastoli c dysfunction). Mild MR. PASP 35-40mmHg Hypertension Impaired fasting glucose Family h/o early CAD 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 u/s of 02/15/16 Noncompliance with several med instructions (BB tx) Discussion and Recomendations * Check orthostatic v/s today * Echocardiogram today * Stop IVF * Ok to discharge from cardiac stand point if she continues to do well * We would like to thank the Medical Service for this consult Clinical Quality Measures DVT/VTE Risk/Contraindication: Risk Factor Score Per Nursin RFS Level Per Nursing on Admit: 4+=Very High DAWNA FOOTE MD FACP FAC CCDS Apr 14, 2019 12:42
--- NOTE | 2019-04-14 13:15 | NUR ---
Pastoral care visit.
--- NOTE | 2019-04-14 16:18 | Occupational Therapy Eval ---
OT Evaluation-General/PLF Medical Diagnosis Admission Date Apr 13, 2019 at 16:30 Medical Diagnosis: fall/head injury Onset Date: Apr 13, 2019 Therapy Diagnosis Therapy Diagnosis: decreased ADL and functional mobility Height/Weight Height (Feet): 5 Height (Inches): 5.00 Weight (Pounds): 107 Weight (Ounces): 1.0 Precautions Precautions/Isolations: Fall Prevention, Standard Precautions Safety Interventions: Bed Exit Alarm Weight Bear Status Weight Bearing Restriction: Weight Bearing/Tolerated Referral Physician: Kalpana Referral Reason: Activity Tolerance, Self Care, Evaluation/Treatment, Strengthening/ROM Medical History Pertinent Medical History: CAD, Heart Failure, [place] Additional Medical History ischemic cardiomyopathy, HTN, CAD, [place] Current History s/p fall at home hitting head on tub and on floor x 3 hours per patient report Reviewed History: Yes Social History Home: Single Level Current Living Status: Alone Steps Into Home: 3 (hand rail) Steps Inside Home: 0 Pt has son that comes 5x a week to check on pt, provides transportation to community and sometimes provides meals. Pt has 3 children, one local. ADL-Prior Level of Function Therapy Code Descriptions/Definitions Functional [place] Measure: 0=Not Assessed/NA 4=Minimal Assistance 1=Total Assistance 5=Supervision or Setup 2=Maximal Assistance 6=Modified [place] 3=Moderate Assistance 7=Complete [place] Therapy Quality Codes: 6 Independent with activity with or without an assistive device 5 Patient requires set up or clean up by helper. Patient completes activity by themselves 4 Supervision or touching assist (CGA). [place] provide cues , steadying assist 3 The helper provides less than half the effort to complete the activity 2 The helper provides more than half the effort to complete the activity 1 Dependent. The helper does all the effort to complete an activity 7 Patient refused to complete or attempt activity 9 The patient did not perform the activity before the current illness or injury 88 Not attempted due to Medical conditions or safety concerns Functional Abilities and Goals: Independent: Patient completed the activities by him/herself, with or without an assistive device, with no assistance from a helper. Needed Some Help: Patient needed partial assistance from another person to complete activities. Dependent: A helper completed the activities for the patient. Unknown: Not Applicable: Self Care: Independent Functional Cognition: Independent DME/Equipment: Bath Chair DME/Equipment Comments Pt utilized FWW intermittently for fx mobility Occupation: retired Drive Self: No OT Current Status Subjective Pt seen in bed, supine. Pt agreeable to OT evaluation. C/o slight pain in lower L abdomen, states "been there since I ate yesterday." Mental Status/Objective Patient Orientation: Person, Place, Situation, Normal For Age Attachments: IV, Telemetry Current Glasses/Contacts: Yes Hearing Aids: No Dentures/Partials: No Hand Dominance: Right Upper Extremity ROM Shoulder flexion/ abduction ~90* BUE Upper Extremity Coordination WFL finger opposition Upper Extremity Sensation no c/o paresthesia Upper Extremity Strength 4-/5 shoulder flexion/ abduction 3+/5 elbow flexion ADL-Treatment Therapy Code Descriptions/Definitions Functional [place] Measure: 0=Not Assessed/NA 4=Minimal Assistance 1=Total Assistance 5=Supervision or Setup 2=Maximal Assistance 6=Modified [place] 3=Moderate Assistance 7=Complete [place] Therapy Quality Codes: 6 Independent with activity with or without an assistive device 5 Patient requires set up or clean up by helper. Patient completes activity by themselves 4 Supervision or touching assist (CGA). [place] provide cues , steadying assist 3 The helper provides less than half the effort to complete the activity 2 The helper provides more than half the effort to complete the activity 1 Dependent. The helper does all the effort to complete an activity 7 Patient refused to complete or attempt activity 9 The patient did not perform the activity before the current illness or injury 88 Not attempted due to Medical conditions or safety concerns Eating (FIM): 6 (increased time needed ) Grooming (FIM): 5 (s/u) Lower Body Dressing (FIM): 2 (max A for shoe/ sock donning EOB) Transfers (B, C, W/C) (FIM): 4 (min A and cues sit to stand transferBed mob = increased time, no assist needed.) Other Treatments Pt stated she was very tired and weak. Pt sat EOB reluctantly, completed assessment EOB. Pt denies use of bathroom, though she has been using bedside commode due to ease. Pt states IND with ADLs prior to fall. Pt has had 3 falls in past year; most recent fall pt states she was rinsing clothes in sink within bathroom, turned off the lights, and fell and hit the back of her head on her tub shower. pt states no c/o dizziness or SOB prior to fall. pt states she "just fell" with previous falls as well. Pt sit to stand with FWW, requires bed height adjusted up for ease. pt completes standing, demonstrates decreased balance. Pt gathers balance but sits soon after standing with control. Pt returns to bed with increased effort. Call light within reach and all needs met. Education OT Patient Education: Correct positioning, Energy conservation, Modified ADL techniques, Purpose of tx/functional activities, Rehab process, Safety issues, Transfer techniques Teaching Recipient: Patient Teaching Methods: Demonstration, Discussion Response to Teaching: Verbalize Understanding, Return Demonstration OT Short Term Goals Short Term Goals Grooming(FIM): 6 Lower Body Dressing(FIM): 4 Toileting(FIM): 3 Transfers (B,C,W/C) (FIM): 5 1=Demonstrate adherence to instructed precautions during ADL tasks. 2=Patient will verbalize/demonstrate understanding of assistive devices/modifications for ADL. 3=Patient will improve strength/tolerance for activity to enable patient to perform ADL's. OT Regional Education Manager Goals Retirement Goals Eating (FIM): 7 Grooming(FIM): 6 Bathing(FIM): 4 Upper Body Dressing(FIM): 4 Lower Body Dressing(FIM): 5 Toileting(FIM): 4 Transfers (B,C,W/C) (FIM): 6 Toilet/Commode Transfer(FIM): 5 Tub Transfer(FIM): 5 Additional Goals: 1-Demonstrate ADL Tasks, 2-Verbalize Understanding, 3- ImproveStrength/Arely 1=Demonstrate adherence to instructed precautions during ADL tasks. 2=Patient will verbalize/demonstrate understanding of assistive devices/modifications for ADL. 3=Patient will improve strength/tolerance for activity to enable patient to perform ADL's. OT Education/Plan Problem List/Assessment Assessment: Decreased Activ Tolerance, Decreased UE Strength, Impaired Coordination, Impaired Funct Balance, Impaired I ADL's, Impaired Self-Care S kills, Restricted Funct UE ROM Discharge Recommendations Plan/Recommendations: Continue POC Therapy Discharge Recommendati: Post Acute OT Comment Due to pt's decreased endurance and safety with sit to stand transfers, additional rehabilitation may be recommended at d/c. Patient/Family Goals Pt wishes to walk and increase functional endurance in order to return home. Treatment Plan/Plan of Care Treatment,Training & Education: Yes Patient would benefit from OT for education, treatment and training to promote independence in ADL's, mobility, safety and/or upper extremity function for ADL's. Plan of Care: ADL Retraining, Caregiver Training, Functional Mobility, Group Exercise/Act as Ind, UE Funct Exercise/Act, UE Neuromus Re-Ed/Coord Frequency: 5 times per week Estimated Hrs Per Day: .25 hour per day Agreement: Yes Rehab Potential: Fair Time/GCodes Start Time: 03:50 Stop Time: 04:05 Total Time Billed (hr/min): 15 Billed Treatment Time 1 EVM (15) AMANDA LEROY OTR Apr 14, 2019 16:18
--- NOTE | 2019-04-14 16:49 | NUR ---
CM/SS, respond to consult and final discharge planing. HHC: Planned with patient preferred agency, [facility]. Patient and/or her spouse, Aaron, had services with this agency before and patient requested again. Orders will be for RN, PT, OT, and bath aid. Initial referral sent, staff will need to sent finalized orders and HHC F2F once completed. PCP: Patient stated she does not have a PCP at this time. She used to go to Dr. Juana Garcia MD and has been thinking about going back. After some discussion about the importance of having a PCP, patient was in agreement to schedule her hospital followup with Dr. Garcia. Staff should make those arrangements for patient's care plan as part of hospital discharge. DME: Patient has FWW and some sort of bath bench. Electronic Drafter recommends that C staff assess bathroom for safety so that patient can take a shower or bath. She is currently just washing from the sink and said she doesn't know how long it has been since she washed her hair. Visited with patient and reviewed all available EMR. Patient resides alone and, indications are, without much assistance for ADL's. She does appear frail and perhaps in need of more assistance and support than is being supplemented by family. Patient has 3 sons, Charles Hogan resides in [place] and checks on patient daily, although therapy notes indicate patient told them he only comes 5 days per week. Charles apparently takes her for appointments and gets her groceries. Patient reports Víctor Hogan resides in [place], Zachary Hogan in [place]. Patient was in agreement for the care plan for HHC and re-establish with PCP. She has history of wound care with [facility], contacted that team and indications are she and/or family had a pattern of noncompliance to appointment schedules and overall treatment regime including Rx antibiotics. Patient reported that after her services were terminated with wound care here for noncompliance she received 14 days of IV antibiotics at [facility]. Electronic Drafter inquired with [facility] regarding open or history of cases, there was one approx 6 years ago. If son is resistant to patient getting HHC, this is conflictual with patient agreement to receive and her comment she felt it would be "good". Recommend referral of concern be completed with [facility] for followup. Patient appears to be appropriate for assisted living environment but this was not discussed. She was admitted OBS and no Medicare skilled benefits to access for short term therapy and reconditioning.
[2019-04-15] VITALS: BP 119/62
[2019-04-15 03:51] VITALS: BP 137/81
[2019-04-15 08:00] VITALS: BP 126/68
[2019-04-15] MEDS ORDERED: ASPIRIN 81 MG CHEW (CHILDREN'S ASA) PO SCH (09:00)
[2019-04-15] MEDS ORDERED: CLOPIDOGREL 75 MG (PLAVIX) TABLET PO SCH (09:00)
--- NOTE | 2019-04-15 09:47 | Discharge Summary ---
Diagnosis/Chief Complaint Date of Admission Apr 13, 2019 at 4:30 pm Date of Discharge Discharge Date: Apr 15, 2019 Admission Diagnosis Unwitnessed fall Primary Care No,Local Physician Discharge Diagnosis (1) Head contusion Status: Acute (2) Ischemic cardiomyopathy Status: Chronic (3) Fall Status: Acute (4) CHF (congestive heart failure) Status: Acute Discharge Summary Procedures/Consulations Dr Myers- Cardiology Discharge Physical Exam Allergies: Coded Allergies: amoxicillin (Unverified Allergy, Unknown, 07/14/18) Vitals & I&Os Vital Signs Date Time Temp Pulse Resp B/P (MAP) Pulse Ox O2 Delivery O2 Flow Rate FiO2 04/15/19 12:00 36.7 102 20 128/80 97 Room Air General Appearance: No Apparent Distress, Chronically ill, [place] Cardiovascular: Regular Rate, Rhythm, No Murmur Hospital Course Pt was admitted to the hospital after a possible syncopal episode in the bathroom. She was monitored on telemetry and echo was done to evaluate systolic function. Cardiology was consulted as well. She had an uneventful hospital stay and echo revealed persistent severe systolic dysfunction. I discussed with patient regarding the consideration for a possible AICD as hse had refused this in the past but here elected to be a full code. She understood the risk of arrhythmia including even a fatal rhythm and stated she would like to think abo ut her options further and follow up with her edger tailer about this as an outpatient. Social Work was consulted as well and home health care was arranged as it turns out she was only able to bathe herself in the sink and has had multiple falls. She was discharged home in stable condition. Labs (last 24 hrs) Patient resulted labs reviewed. Imaging: Reviewed Imaging Report Discussion & Recommendations Discharge Planning: >30 minutes discharge planning Discharge Home Medications: Active Scripts Active Reported Clopidogrel (Clopidogrel Bisulfate) 75 Mg Tablet 75 Mg PO DAILY Aspirin EC (Aspirin) 81 Mg Tablet. 81 Mg PO DAILY Metoprolol Succinate 25 Mg Tab.er.24h 25 Mg PO DAILY Lisinopril 2.5 Mg Tablet 2.5 Mg PO DAILY Instructions to patient/family Please see electronic discharge instructions given to patient. Clinical Quality Measures DVT/VTE Risk/Contraindication: Risk Factor Score Per Nursin RFS Level Per Nursing on Admit: 4+=Very High Copy Copies To 1: NIKOLAI HODGES MD Problem Qualifiers (1) Head contusion: Encounter type: initial encounter Contusion of head detail: scalp Qualified Codes: S00.03XA - Contusion of scalp, initial encounter (2) Fall: Encounter type: initial encounter Qualified Codes: W19.XXXA - Unspecified fall, initial encounter (3) CHF (congestive heart failure): Heart failure type: unspecified Heart failure chronicity: chronic Qualified Codes: I50.9 - Heart failure, unspecified ANDREI MACIAS MD Apr 15, 2019 9:47 am
--- NOTE | 2019-04-15 10:00 | D/C HH Face to Face Order ---
D/C Face to Face Orders Reconcile Patient Problems Problems Reviewed?: Yes Instructions for Patient Via Karina[facility]xa, Patient Instructions/FollowUp: Please continue to take your medications as written. Physician to follow Patient: Dr Garcia Discharge Diet for Home: Low Sodium Diet Patient Data-Allergies,Ht & Wt Patient Allergies: Coded Allergies: amoxicillin (Unverified Allergy, Unknown, 07/14/18) Height (Feet): 5 Height (Inches): 5.00 Weight (Pounds): 107 Weight (Ounces): 1.0 Home Health Need/Face to Face Date of Face to Face: Apr 14, 2019 Clinical Findings: Generalized weakness and fatigue, Muscle weakness, Shortness of breath, Unsteady gait I have seen Pt [id number]: Yes Discharged To: Home Diagnosis/Conditions: Ischemic Cardiomyopathy Patient is Homebound due to: Ken fall risk due to instabilty, Shortness of breath/distress Homebound Status Due to the above stated illness, injury or surgical procedure (medical condition or diagnosis) and associated clinical findings, the patient is homebound because of his/her inability to leave home except with aid of a supportive device and/or person AND leaving the home requires a considerable and taxing effort or is medically contraindicated. Pt req the following assistanc: Aid of another person Home Health Nursing Orders Home Health Services Order: Nursing Services, Sales Applications Engineer-Evaluate & Treat, Physical Therapy-Evaluate & Treat, Other Needs bath aide Therapy Orders Therapy Orders: OT (must have SN or PT order), Physical Therapy Therapy Specific Orders: Eval assistive deivces, Teach enviro modifications/s afety, Gait training, Increase strength/endurance Certify Stmt I certify that this patient is under my care and that I, a nurse practitioner or a physician; a volunteer assistant working with me, had a face to face encounter that - meets the physician face to face encounter requirements with this patient as dated. ANDREI MACIAS MD Apr 14, 2019 2:56 pm
--- NOTE | 2019-04-15 10:06 | Physical Therapy Daily Note ---
PT Daily Note-Current Subjective Patient agrees to PT. No c/o at this time. Pain Numeric Pain Scale: 0-No Pain Location: No Pain Reported Mental Status Patient Orientation: Normal For Age Transfers Therapy Code Descriptions/Definitions Functional Blair Measure: 0=Not Assessed/NA 4=Minimal Assistance 1=Total Assistance 5=Supervision or Setup 2=Maximal Assistance 6=Modified [place] 3=Moderate Assistance 7=Complete [place] Therapy Quality Codes: 6 Independent with activity with or without an assistive device 5 Patient requires set up or clean up by helper. Patient completes activity by themselves 4 Supervision or touching assist (CGA). [place] provide cues , steadying assist 3 The helper provides less than half the effort to complete the activity 2 The helper provides more than half the effort to complete the activity 1 Dependent. The helper does all the effort to complete an activity 7 Patient refused to complete or attempt activity 9 The patient did not perform the activity before the current illness or injury 88 Not attempted due to Medical conditions or safety concerns Transfers (B, C, W/C) (FIM): 5 Scootin Sit to/from Stand: 5 Gait Training Gait (FIM): 5 Distance (FIM): 3=150 ft Distance: 200' Gait Level of Assist: 5 Gait Persons Needed: 1 Gait Assistive Device: FWW close SBA for safety with gait belt in place, however, patient did not require assistance Assessment Patient tolerated treatment well and will dismiss to home with family on this date per physician report. SW confirms. PT Short Term Goals Short Term Goals Transfers (B,C,W/C) (FIM): 5 PT Senior Systems Architect Goals Senior Care Goals PT Senior Systems Architect Goals Time Frame: Apr 23, 2019 Transfers (B,C,W/C) (FIM): 6 Gait (FIM): 6 Gait distance (FIM): 3=150 ft Distance: 200' Gait Level of Assist: 6 Gait Assistive Device: FWW PT Plan Treatment/Plan Treatment Plan: Continue Plan of Care Treatment Plan: Bed Mobility, Education, Functional Activity Arely, Functional Strength, Gait, Safety, Therapeutic Exercise, Transfers Treatment Duration: Apr 23, 2019 Frequency: 6 times per week Estimated Hrs Per Day: .25 hour per day Patient and/or Family Agrees t: Yes Time/GCodes Time In: 925 Time Out: 935 Total Billed Treatment Time: 10 Total Billed Treatment 1 visit FA 10 min ROOPA FORMAN PT Apr 15, 2019 10:06
--- NOTE | 2019-04-15 10:06 | Progress Note - Cardiology ---
Cardiology SOAP Progress Note Subjective: No cp or palp or shortness of breath or syncope Chronic generalized weakness Wishes to go home Objective: I&O/Vital Signs 04/15/19 04/15/19 04/15/19 04/15/19 00:00 01:00 03:51 07:00 Temp 37.0 36.4 Pulse 67 94 90 72 Resp 20 18 B/P (MAP) 119/62 137/81 Pulse Ox 97 98 O2 Delivery Room Air Room Air 04/15/19 04/15/19 08:00 08:00 Temp 36.6 Pulse 100 Resp 20 B/P (MAP) 126/68 Pulse Ox 97 O2 Delivery Room Air Room Air 04/15/19 00:00 Intake Total 1110 ml Output Total 2325 ml Balance -1215 ml Weight (Pounds): 107 Weight (Ounces): 1.0 Weight (Calculated Kilograms): [id number] Constitutional: AAO x 3, other (frail, thin) Respiratory: No accessory muscle use, No respiratory distress; chest expansion is symmetric, chest is bilaterally symmetric, lungs clear to auscultation Cardiovascular: regular rate-rhythm; No JVD; S1 and S2, systolic murmur Gastrointestional: No tender; soft, round, audible bowel sounds Extremities: no lower extremity edema bilateral Neurologic/Psychiatric: grossly intact Skin: No ulcerations Results/Procedures: Labs Laboratory Tests 04/13/19 14:21 04/14/19 05:41 A/P: Assessment: Non-syncopal fall (lost balance, according to the patient) Minimal troponin elevation possibly d/t transient hypoxia, no evidence of OK H/o wound on the lateral aspect of L leg (leading to peripheral arterial eval and interventions to the L leg, as noted below) - healed PAD. Peripheral angio of 07/10/17: ectatic abdominal aorta, aorto-iliac calcification, mod dz of renal arteries, diffuse mod disease of both sup fems, 90% ostial and prox stenosis of the L sup fem, single vessel (ant tibial) run off in both legs with 90% ostial stenoses of both ant tibs. Peripheral PCI on 07/10/17: balloon angioplasty of ostial L ant tib that reduced 90% ostial stenosis to less than 30% residual, balloon angioplasty and stenting (Absolute Pro 7 x 80 stent, dilated to 5 mm wilder) to the L prox sup fem that reduced stenosis form 90% to 0% residual Seg pressures of 07/08/17 showed mild to mod PAD of the R leg (WALTER 0.85 on the R and TBI 0.74 on the R) and moderate to mod severe PAD of the L leg (WALTER 0.62 on the L and TBI 0.38 on the L); repeat seg pressures of 07/15/17 (post L-sided intervention) much improved (R WALTER 1.01, R TBI, 0.81; L WALTER 1.06, L TBI 0.82) Ischemic cardiomyopathy. Card cath of 05/08/15 showed coronary artery disease, primarily single-vessel, primarily consisting of 90% mid vessel stenosis of the left anterior descending, to which successful stenting was carried out with Promus Premier 3 x 12 mm stent with reduction of stenosis to 0% residual. The r est of the coronary vessels have relatively mild to moderate disease; elevated left ventricular end diastolic pressure; impairment of global left ventricular systolic function with anterolateral and apical hypokinesis to akinesis and left ventricular ejection fraction 30 to 35% Chronic systolic CHF, clinically compensated. 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 Most recent echo of January 25, 2018 showed LVEF 15-20%. She has refused ICD placement Echocardiogram of 04/04/19: LVEF 15-20%. Akinesis of the anteroseptal and apical myocardium, grade 2 diastolic dysfunction), mild MR, mild LAE (essentially unchanged compared to echo of 2018) Hypertension Impaired fasting glucose Family h/o early CAD 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 u/s of 02/15/16 Noncompliance with several med instructions, including instructions to take beta-blockers and NICHOLE-inhib/ARB Plan: * I discussed her CV issues in detail with her, including the findings of echo of 04/14/19 * She needs to take anticoag for stroke prophylaxis. She refuses * She needs to take meds for chronic CHF and cardiomyopathy. She has been and remains noncompliant. States she will consider and let us know if she would like to go on it * She does agree to antiplatelet therapy * We have advised close outpat f/u DAWNA FOOTE MD FACP FAC CCDS Apr 15, 2019 10:06
--- NOTE | 2019-04-15 11:16 | NUR ---
CM/SS spoke with patient and her son will transport this day, she stated after 1500. Final discharge information sent to [facility].
[2019-04-15 12:00] VITALS: BP 128/80
[2019-04-15 15:51] VITALS: BP 137/70
== END 2019-04-15 10:02 | disposition home or self-care (01) ==
LOC: EDUNIT# 13:55 → ER 13:56 → UNDOADMOB 16:30 → 4TH 16:30 → UNDODISOB 04-15 17:25
PROVIDERS: ADMIT Family Medicine; ATTEND Family Medicine
DX: S00.93XA Contusion of unspecified part of head, initial encounter (principal); I50.9 Heart failure, unspecified; I25.5 Ischemic cardiomyopathy; I25.2 Old myocardial infarction; K59.00 Constipation, unspecified; H40.9 Unspecified glaucoma; C44.90 Unspecified malignant neoplasm of skin, unspecified; W01.0XXA Fall on same level from slipping, tripping and stumbling without subsequent striking against object, initial encounter; Z88.0 Allergy status to penicillin; Z79.82 Long term (current) use of aspirin; Z79.899 Other long term (current) drug therapy; Z90.710 Acquired absence of both cervix and uterus; Z82.49 Family history of ischemic heart disease and other diseases of the circulatory system
CPT/HCPCS: 36415; 70450; 71046; 80053; 83874; 84484; 85025; 85610; 85730; 93005; 93306; G0378

== ENCOUNTER 2019-09-13 07:03 | Day surgery (SDC) | payer MEDICARE, OTHER ==
[~2019-09-13] VITALS: Ht 165 cm; Wt 45.0 kg
[2019-09-13] VITALS (9 sets, daily range): BP systolic 114–141; BP diastolic 59–100
[~2019-09-13 07:03] MED LIST changes: -METO-387 PO; +MTP25TSR PO
[2019-09-13] MEDS ORDERED: HEParin (CATH LAB) 2,000 ML IV ONE (07:06)
[2019-09-13] MEDS ORDERED: LIDOCAINE 1% INJ 20 ML 20 ML VIAL ONE (07:06)
[2019-09-13] MEDS ORDERED: NS IV 1000 ML 1,000 ML ONE (07:07)
[2019-09-13] MEDS ORDERED: NS IV 1000 ML 1,000 ML IV SCH ×2 (07:15→11:50)
[2019-09-13 07:45] LABS: HEMOGLOBIN 13.2 G/DL (11.5-16.0); MEAN PLATELET VOLUME 10.4 FL (7.4-10.4); RED CELL DISTRIBUTION WIDTH 13.8 % (10.0-14.5); WHITE BLOOD COUNT 3.5 10^3/uL (4.3-11.0)
[2019-09-13 08:08] LABS: ALBUMIN 3.9 GM/DL (3.2-4.5); BILIRUBIN,TOTAL 0.8 MG/DL (0.1-1.0); CALCIUM 8.9 MG/DL (8.5-10.1); CREATININE SERUM 0.98 MG/DL (0.60-1.30); POTASSIUM 4.8 MMOL/L (3.6-5.0); TOTAL PROTEIN 6.6 GM/DL (6.4-8.2)
[2019-09-13 08:11] LABS: INR 1.2 (0.8-1.4); PROTHROMBIN TIME PATIENT 15.2 SEC (12.2-14.7)
--- NOTE | 2019-09-13 08:19 | NUR ---
SPOKE WITH THE PT (SHE HAD HER MED BOTTLES) WELL CALLING [facility] TO COMPLETE THE MED REC. ALL OF THE PATIENTS BOTTLES ARE PAST DUE- WHEN I ASKED ABOUT THE DATING SHE ADMITTED THAT SHE HAD STOPPED TAKING EVERYTHING FOR A COUPLE MONTHS AND JUST STARTED TAKING ALL HER MEDS AGAIN YESTERDAY. I DID NOT INCLUDE ANY PRESCRIPTION MEDS ON THE MED REC DUE TO THE REASONS ABOVE. HERE ARE THE MEDS ALONG WITH THE FILL DATES AND QTY 03-21-19 METOPROLOL ER 25MG #30 (THIS IS READY TO CASH POSTING SPECIALIST AT [facility]) 05-19-19 LISINOPRIL 205MG #90 07-30-2019 CLOPIDOGREL 75MG #30 PT SAYS SHE DOES TAKE ASPIRIN DAILY SO THAT WAS LEFT ON THE MED REC
[2019-09-13] MEDS ORDERED: fentaNYL INJECTION 100 MCG/2 ML AMP ONE (10:48)
[2019-09-13] MEDS ORDERED: MIDAZOLAM 5 MG/5 ML (VERSED) VIAL ONE (10:48)
--- NOTE | 2019-09-13 11:24 | Cardiac Procedure Note-CS/ASA ---
Pre-Procedure Note Pre-Op Procedure Note H&P Reviewed The H&P was reviewed, patient examined and no changes noted. Date H&P Reviewed: Sep 13, 2019 Time H&P Reviewed: 11:00 Conscious Sedation Pre-Proced Time 11:00 ASA Score 3 For ASA 3 and 4: Consider anesthesia and medical clearance. Also, for patients with a history of failed moderate sedation consider anesthesia. Airway Lungs Heart ASA score ASA 1: a normal healthy patient ASA 2: a patient with a mild systemic disease (mid diabetes, controlled hypertension, obesity ASA 3: a patient with a severe systemic disease that limits activity (angina, COPD, prior Myocardial infarction) ASA 4: a patient with an incapacitating disease that is a constant threat to life (CHF, renal failure) ASA 5: a moribund patient not expected to survive 24 hrs. (ruptured aneurysm) ASA 6: a declared brain- patient whose organs are being harvested. For emergent operations, add the letter E after the classification Mallampati Classification Grade 2 Sedation Plan Analgesia, Amnesia, Plan communicated to team members, Discussed options with patient/fam, Discussed risks with patient/fam The patient is an appropriate candidate to undergo the planned procedure, sedation, and anesthesia. The patient immediately re-assessed prior to indication. DAWNA FOOTE MD FACP FAC CCDS Sep 13, 2019 11:24
[2019-09-13] MEDS ORDERED: METO-333 PO (11:54)
[2019-09-13] MEDS ORDERED: ENAL2.5T PO (11:54)
--- NOTE | 2019-09-13 11:54 | Discharge Inst-Cardiology ---
Discharge Inst-Cardiac Discharge Medications New Medications: Enalapril Maleate (Enalapril Maleate) 2.5 Mg Tablet 2.5 MG PO BID, #60 TAB 5 Refills Metoprolol Tartrate (Metoprolol Tartrate) 25 Mg Tablet 12.5 MG PO BID, #60 TAB 5 Refills Continued Medications: Aspirin (Aspirin EC) 81 Mg Tablet. 81 MG PO DAILY, TAB DAWNA FOOTE MD FACP FACC CCDS Sep 13, 2019 11:54
--- NOTE | 2019-09-13 11:55 | Discharge Inst-Post CATH ---
Discharge Inst-CATH/EP Post Cardiac Cath/EP D/C Inst Follow Up/Plan F/u with Dr Myers next week ACTIVITY * Go Home directly and rest. * Limit activity of the leg (or wrist if it was used) for 7 days including aerobics, swimming, jogging, bicycling, etc. * Restrict stair-climbing for 7 days if possible, if not, climb up with your no n-cath leg, then bring together on the same step. * Avoid lifting, pushing, pulling or excessive movement of the affected ext remity for 7 days. * Customary sexual activity may be resumed after 2 days-use caution not to use a position that strains or causes pain to the affected extremity. * No driving for 24 hours. * NO SMOKING. * Avoid straining for bowel movements for 7 days. * Gentle walking on level ground is allowed. * Returning to work will depend on the type of procedure and the results. Your doctor will discuss this with you. CALL YOUR DOCTOR FOR ANY OF THE FOLLOWING: *If bleeding from the puncture site occurs- Apply gentle pressure to site with clean cloth and call your doctor or EMS. * If a knot or lump forms under the skin, increases in size, or causes pain. * If bruising appears to be worsening or moving further down your leg instead of disappearing. * Temperature above 101 F. CARE OF YOUR GROIN INCISION; * Bruising or purple discoloration of the skin near the puncture site is common. * You may shower only, no bathtub bathing for 5 days. Be careful to avoid slipping as your leg may feel stiff. * If a closure device was used on your femoral artery, please see the attached guide regarding care of the device and your leg. * Leave dressing on FOR 24 hours. CARE OF YOUR WRIST INCISION; * Bruising or purple discoloration of the skin near the puncture site is common. * You may shower. * DO NOT submerge wrist. * Leave dressing on FOR 24 hours. DAWNA MYERS MD FACP FAC CCDS Sep 13, 2019 11:55
--- NOTE | 2019-09-13 11:59 | CARDIAC CATHETERIZATION ---
DATE OF SERVICE: 09/13/2019 CARDIAC CATHETERIZATION REPORT INDICATIONS FOR PROCEDURE: The patient is an 88-year-old lady, who is known to have coronary artery disease and has had stenting of the left anterior descending artery in 2014. She has been experiencing generalized malaise and increasing shortness of breath. Cardiac catheterization was carried out today after having obtained an informed consent. DESCRIPTION OF PROCEDURE: She was brought to the cardiac catheterization laboratory in a fasting state. Right groin was prepared and draped in the usual sterile fashion. Lidocaine 1% was used for local anesthesia. Modified Seldinger technique was used to advance a 5-[place] sheath in the right femoral artery, 5-[place] JL4 catheter for left coronary angiography, 5-[place] JR4 catheter for right coronary angiography, 5-[place] pigtail catheter was used for left heart catheterization and left ventricular angiography. Angiography of the right femoral artery had been carried out through the sheath at the beginning the procedure. At the end of the procedure, Mynx was used to achieve hemostasis. She tolerated the procedure well. HEMODYNAMICS: Left ventricular end-diastolic pressure following coronary angiography was 15 mmHg. There was no significant pressure gradient on pullback across the aortic valve. The ascending aortic pressure was 120/52 with a mean of 74 mmHg. CORONARY ANGIOGRAPHY: Coronary calcification is seen. Left main coronary artery does not exhibit any significant disease. Left anterior descending artery has a patent stent in its mid portion. Flow in the left anterior descending artery is somewhat sluggish. No significant stenosis seen in the left anterior descending. Left circumflex artery is small and nondominant and does not exhibit significant disease. Right coronary artery is large and dominant and has diffuse moderate disease with stenosis of approximately 40%. LEFT VENTRICULAR ANGIOGRAPHY: Left ventricular angiography was carried out in the right anterior oblique projection. There was a global hypokinesis of the left ventricle, more marked in the anterolateral and apical giron. Left ventricular ejection fraction is approximately 20%. CONCLUSIONS: 1. Coronary artery disease, moderate. 2. Patent stent in the mid left anterior descending artery that is known to be Promus Premier 3 x 12 mm stent that was placed in 2014. 3. Marked impairment of global left ventricular systolic function with an ejection fraction of 20%. 4. Global hypokinesis of the left ventricle, more marked in the anterolateral and apical giron. 5. Mild elevation of the left ventricular end-diastolic pressure. DISCUSSION AND RECOMMENDATIONS: Based on the results of the study, we are continuing a conservative approach. Her main problem has been noncompliance with medical therapy. We have again advised her to be compliant and to follow up closely on an outpatient basis. Job ID: [id number] DocumentID: [id number] Dictated Date: 09/13/2019 11:46:51 Window Glass Cutter Off Date: 09/13/2019 11:58:25 Dictated By: DAWNA FOOTE MD, MA, FACP, FACC,
[2019-09-13] MEDS ORDERED: PATIENT MAY USE OWN MEDS, ALL PO SCH (12:00)
== END 2019-09-13 15:15 | disposition home or self-care (01) ==
LOC: CATH 07:03 → SDC 12:20 → CATH 15:15
PROVIDERS: ATTEND Internal Medicine Cardiovascular Disease
DX: I25.10 Atherosclerotic heart disease of native coronary artery without angina pectoris (principal); I50.22 Chronic systolic (congestive) heart failure; I73.9 Peripheral vascular disease, unspecified; I48.0 Paroxysmal atrial fibrillation; I25.5 Ischemic cardiomyopathy; Z79.82 Long term (current) use of aspirin; Z79.02 Long term (current) use of antithrombotics/antiplatelets; Z88.1 Allergy status to other antibiotic agents; Z80.49 Family history of malignant neoplasm of other genital organs; Z90.710 Acquired absence of both cervix and uterus
CPT/HCPCS: 36415; 80053; 80061; 85027; 85610; 85730; 93458

== ENCOUNTER 2021-03-19 15:39 | Inpatient (IN) | payer MEDICARE, OTHER ==
[~2021-03-19] VITALS: Ht 165 cm; Wt 49.3 kg
[~2021-03-19 15:39] MED LIST changes: +ASCO500T17 PO; -ASCO500T6 PO; +ASPI-1238 PO; -ASPI-983 PO; +ENLP2.5T PO; -LISI-556 PO; +LISI-729 PO; -LISI10TA2 PO; +LISI10TA25 PO; +METO-333 PO
[2021-03-19] MEDS ORDERED: LACTATED RINGERS 1,000 ML IV ONE (16:15)
--- NOTE | 2021-03-19 16:15 | ED General ---
General Stated Complaint: AMS Source of Information: Patient, Caregiver, Family (son) Exam Limitations: No Limitations History of Present Illness Date Seen by Provider: Mar 19, 2021 Time Seen by Provider: 15:46 Initial Comments Patient to the ER by private [facility]ance [facility] with staff and chief complaint that around 330 staff went to check on her noted that she was having a blank stare and look like she did not feel well. Sent her to the ER. She denied any chest pain or pain anywhere. No nausea fever chills. They had a staff member come to the facility 4 days ago that was positive for Covid so she has been tested yesterday and was negative for Covid. She is not having a cough. She denies a history of respiratory disease. She has a history of atrial fibrillation and her heart rate was anywhere from 90-130 yesterday but not today. She had normal vital signs this morning per the charge nurse who took care of her over the phone. She has a history of a stent by Dr. Myers and a stent in her leg. She denies any dysuria or diarrhea. She is accompanied by her son who says she had surgery 2 weeks ago at [facility] by Dr. Patiño for hip fracture secondary to a fall and is doing rehab at the [facility]. She is on aspirin but not Plavix. No blood thinners. Allergies and Home Medications Allergies Coded Allergies: amoxicillin (Unverified Allergy, Unknown, 07/14/18) Home Medications Aspirin 81 Mg Tablet.dr 81 MG PO DAILY, (Reported) Enalapril Maleate 2.5 Mg Tablet, 2.5 MG PO BID Prescribed by: DAWNA MYERS on 09/13/19 1154 Metoprolol Tartrate 25 Mg Tablet, 12.5 MG PO BID Prescribed by: DAWNA MYERS on 09/13/19 1154 Patient Home Medication List Home Medication List Reviewed: Yes Review of Systems Review of Systems Constitutional: No chills, No fever; malaise, weakness EENTM: No ear discharge, No ear pain Respiratory: No cough, No phlegm; short of breath; No wheezing Cardiovascular: No chest pain, No palpitations Gastrointestinal: No abdominal pain, No nausea, No vomiting Genitourinary: No discharge, No dysuria; incontinence Musculoskeletal: No back pain, No joint pain Psychiatric/Neurological: Denies Anxiety, Denies Depressed All Other Systems Reviewed Negative Unless Noted: Yes Past Xcibdyh-Mmgcug-Sfrjzx Hx Immunizations Up To Date Tetanus Booster (TDap): Unknown Seasonal Allergies Seasonal Allergies: No Past Medical History Surgeries: Yes (Cardiac and Peripheral in left leg Stent placement) Coronary Stent, 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 Respiratory: No Cardiac: Yes (MO in 86, EF 15-20% 01/2018) Cardiomyopathy, Coronary Artery Disease, Heart Attack, Hypertension 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 Genitourinary: No Gastrointestinal: Yes Chronic Constipation Musculoskeletal: No Endocrine: No HEENT: Yes Glaucoma Cancer: Yes (2010) Skin Did You Recieve Any Treatments: Yes What Type of Treatment Did You: Surgical Intervention Psychosocial: No Integumentary: Yes Recent Skin Changes Blood Disorders: No Adverse Reaction/Blood Tranf: No Family Medical History Hypertension 19 FATHER No Pertinent Family Hx Physical Exam Vital Signs Vital Signs - First Documented 03/19/21 15:45 Temp 35.9 Pulse 87 Resp 22 B/P (MAP) 130/103 (112) Pulse Ox 93 O2 Delivery Room Air Capillary Refill : Height, Weight, BMI Height: 5'5.00" Weight: 107lbs. 1.0oz. [id number]; 16.52 BMI Method:Stated General Appearance: Anxious, Chronically ill, Moderate Distress Eyes: Bilateral Eye Normal Inspection, Bilateral Eye PERRL, Bilateral Eye EOMI HEENT: PERRL/EOMI, Pharynx Normal, Moist Mucous Membranes Neck: Full Range of Motion, Normal Inspection, Non Tender Respiratory: Lungs Clear, Normal Breath Sounds, No Accessory Muscle Use, Respiratory Distress (25 to 30 breaths/min) Cardiovascular: Regular Rate, Rhythm, Normal Peripheral Pulses Gastrointestinal: Normal Bowel Sounds, Non Tender, Soft Extremity: Normal Capillary Refill, Normal Inspection, Normal Range of Motion Neurologic/Psychiatric: Alert, No Motor/Sensory Deficits; No Normal Mood/Affect (Anxious affect); shagger II-XII Norm as Tested, Other (Oriented to person and time but not place) Skin: Normal Color, Warm/Dry Progress/Results/Core Measures Suspected Sepsis SIRS Temperature: Pulse: Respiratory Rate: Laboratory Tests 03/19/21 15:50: White Blood Count 10.0 Blood Pressure / Mean: Laboratory Tests 03/19/21 15:50: Creatinine 1.37H, INR Comment 1.6H, Platelet Count 268, Total Bilirubin 1.3H Results/Orders Lab Results Laboratory Tests Test 03/19/21 15:49 03/19/21 15:50 03/19/21 15:56 03/19/21 16:00 Range/Units Glucometer 118 H 70-110 MG/DL White Blood Count 10.0 4.3-11.0 10^3/uL Red Blood Count 4.16 3.80-5.11 10^6/uL Hemoglobin 13.3 11.5-16.0 g/dL Hematocrit 44 35-52 % Mean Corpuscular Volume 105 H 80-99 fL Mean Corpuscular Hemoglobin 32 25-34 pg Mean Corpuscular Hemoglobin Concent 31 L 32-36 g/dL Red Cell Distribution Width 16.0 H 10.0-14.5 % Platelet Count 268 130-400 10^3/uL Mean Platelet Volume 10.2 9.0-12.2 fL Immature Granulocyte % (Auto) 1 % Neutrophils (%) (Auto) 81 H 42-75 % Lymphocytes (%) (Auto) 8 L 12-44 % Monocytes (%) (Auto) 10 0-12 % Eosinophils (%) (Auto) 0 0-10 % Basophils (%) (Auto) 0 0-10 % Neutrophils # (Auto) 8.1 H 1.8-7.8 10^3/uL Lymphocytes # (Auto) 0.8 L 1.0-4.0 10^3/uL Monocytes # (Auto) 1.0 0.0-1.0 10^3/uL Eosinophils # (Auto) 0.0 0.0-0.3 10^3/uL Basophils # (Auto) 0.0 0.0-0.1 10^3/uL Immature Granulocyte # (Auto) 0.1 0.0-0.1 10^3/uL Prothrombin Time 19.2 H 12.2-14.7 SEC INR Comment 1.6 H 0.8-1.4 Activated Partial Thromboplast Time 31 24-35 SEC Sodium Level 141 135-145 MMOL/L Potassium Level 4.7 3.6-5.0 MMOL/L Chloride Level 106 98-107 MMOL/L Carbon Dioxide Level 21 21-32 MMOL/L Anion Gap 14 5-14 MMOL/L Blood Urea Nitrogen 51 H 7-18 MG/DL Creatinine 1.37 H 0.60-1.30 MG/DL Estimat Glomerular Filtration Rate 36 BUN/Creatinine Ratio 37 Glucose Level 120 H 70-105 MG/DL Calcium Level 9.1 8.5-10.1 MG/DL Corrected Calcium 9.3 8.5-10.1 MG/DL Total Bilirubin 1.3 H 0.1-1.0 MG/DL Aspartate Amino Transf (AST/SGOT) 26 5-34 U/L Alanine Aminotransferase (ALT/SGPT) 26 0-55 U/L Alkaline Phosphatase 187 H 40-136 U/L Troponin I 0.044 H <0.028 NG/ML Total Protein 6.8 6.4-8.2 GM/DL Albumin 3.7 3.2-4.5 GM/DL Influenza Type A (RT-PCR) Not Detected Not Detecte Influenza Type B (RT-PCR) Not Detected Not Detecte SARS-CoV-2 RNA (RT-PCR) Not Detected Not Detecte Blood Gas Puncture Site L RADIAL Blood Gas Patient Temperature 35.9 Arterial Blood pH 7.38 7.37-7.43 Arterial Blood Partial Pressure CO2 39 35-45 MMHG Arterial Blood Partial Pressure O2 68 L 79-93 MMHG Arterial Blood HCO3 23 23-27 MMOL/L Arterial Blood Total CO2 24.6 21.0-31.0 MMOL/L Arterial Blood Oxygen Saturation 94 94-100 % Arterial Blood Base Excess -1.2 -2.5-2.5 MMOL/L Jose Alfredo Test YES-POS Blood Gas Ventilator Setting NO Blood Gas Inspired Oxygen NA Test 03/19/21 18:02 Range/Units My Orders Orders - MARYLOU YANEZ Cbc With Automated Diff (03/19/21 16:09) Comprehensive Metabolic Panel (03/19/21 16:09) Blood Culture (03/19/21 16:09) Sputum Culture (03/19/21 16:09) Urinalysis (03/19/21 16:09) Urine Culture (03/19/21 16:09) Protime With Inr (03/19/21 16:09) Partial Thromboplastin Time (03/19/21 16:09) Chest 1 View, Ap/Pa Only (03/19/21 16:09) Ed Iv/Invasive Line Start (03/19/21 16:09) Ed Iv/Invasive Line Start (03/19/21 16:09) Ekg Tracing (03/19/21 16:09) Troponin I (03/19/21 16:09) Vital Signs Adult Sepsis Patie Q15M (03/19/21 16:09) O2 (03/19/21 16:09) Remove Rings In Anticipation O (03/19/21 16:09) Lactic Acid Analyzer (03/19/21 16:09) Lactated Ringers (Lr 1000 Ml Iv Solution (03/19/21 16:15) Covid 19 Inhouse Test (03/19/21 16:09) Influenza A And B By Pcr (03/19/21 16:09) Accucheck Stat ONCE (03/19/21 16:15) Arterial Blood Gas (03/19/21 16:15) Medications Given in ED Current Medications Medications Dose Ordered Sig/Isaac Route Start Time Stop Time Status Last Admin Dose Admin Lactated Ringer's 1,000 ml @ 0 mls/hr Q0M ONCE IV 03/19/21 16:15 03/19/21 16:16 DC 03/19/21 16:24 0 MLS/HR Vital Signs/I&O 03/19/21 15:45 Temp 35.9 Pulse 87 Resp 22 B/P (MAP) 130/103 (112) Pulse Ox 93 O2 Delivery Room Air Capillary Refill : Progress Note #1: Time: 16:18 Progress Note Patient is now having a chest pain which is having some shortness of air so we did get an EKG which revealed some ST elevation laterally which was seen conserved on previous EKGs and did not seem to be consistent with acute MO. I did ask Dr. Garcia down and he examined patient as well as EKGs and since she is not having any chest pain he does not recommend taking her to the Supp[facility] Molding [facility] Operator. Covid swab was obtained since she had an exposure and she is having some tachypnea around 25 to 30 breaths/min. Labs and chest x-ray. She is not tachycardic however she is on beta-blockers and she has a white count and she would qualify for sepsis. Urinary tract infection pneumonia etc. Progress Note #2: Time: 18:32 Progress Note Troponin is marginally detectable. Could be a type II NSTEMI if it continues to rise. Plan to trend it overnight. Plan to admit her for pneumonia healthcare associated type. ECG Initial ECG Impression Date: Mar 19, 2021 Initial ECG Impression Time: 15:52 Initial ECG Rate: 79 Initial ECG Rhythm: A Fib/Flutter Initial ECG Intervals: QT (487) Initial ECG Impression: Atrial Fibrillation Initial ECG Comparisson: Unchanged Comment Atrial fibrillation with a right bundle branch block and conserved changes seen on previous EKGs in 2019. No rapid ventricular response. No clinically relevant ST changes. Diagnostic Imaging Diagonstic Imaging: Xray Plain Films/CT/US/NM/MRI: chest Comments [facility] [place] NAME: GE[facility] REC#: [id number] PT STATUS: REG ER : 1932 PHYSICIAN: MARYLOU YANEZ MD ADMIT DATE: 03/19/21/ER Signed Date of Exam:03/19/21 CHEST 1 VIEW, AP/PA ONLY EXAMINATION: Chest, 1 view. HISTORY: Sepsis. COMPARISON: 04/13/2019. FINDINGS: Stable enlargement of the cardiac silhouette. There are calcifications of the aorta. Patchy airspace opacities within both lungs with blunting of the costophrenic angles. No pneumothorax. The osseous structures are intact. IMPRESSION: Bilateral pleural effusions with bibasilar atelectasis or pneumonia. Dictated by: Dictated on workstation # [id number] Dict: 03/19/211650 Trans: 03/19/211654 [id number] Interpreted by: CARL PURDY DO Electronically signed by: CARL PURDY DO 03/19/21 1655 Reviewed: Reviewed by Wi Departure Communication (Admissions) Time/Spoke to Admitting Phy: 18:36 Impression Primary Impression: HAP (hospital-acquired pneumonia) Additional Impressions: Elevated troponin I measurement Acute respiratory failure with hypoxemia Disposition: ADMITTED INPATIENT Condition: Stable Admissions Decision to Admit Reason: Admit from ER (General) Decision to Admit/Date: Mar 19, 2021 Time/Decision to Admit Time: 17:59 Departure-Patient Inst. Referrals: NO,LOCAL PHYSICIAN (PCP/Family) Primary Care Physician Stroke Onset of Symptoms Symptoms onset unknown: Yes NIH Stroke Scale Assessment Select: Initial Level of Consciousness: 0=Alert (0), Level of Consciousness- Questions: 0=Answers both month/age (0), LOC Commands: 0=Performs both tasks (0), Gaze: Normal (0), Visual Felton: 0=No visual loss (0), Facial Movement (Facial Paresis): 0=Normal symmetrical mnt (0), Motor Function-Arms Right: 0=No drift (0), Motor Function-Arms Left: 0=No drift (0), Motor Function-Legs Right: 0=No drift (0), Motor Function-Legs Left: 0=No drift (0), Limb Ataxia: 0=Absent (0), Sensory: 0=Normal:no loss (0), Best Language: 0=No aphasia (0), Dysarthria: 0=Normal (0), Extinction & Inattention: 0=No abnormality (0), Total: 0 Stroke Thrombolytic Exclusion Age 18 or Over: Yes Acute intenal hemorrhage: No History of CVA: No Uncontrolled Coagulation Defec: No Intracranial Hemorrhage: No Severe Hypertension: No GI or Bleed: No Subarachnoid Hemorrhage: No Intracranial Neoplasm/Aneurysm: No Oral Anticoagulants: No Surgery or Trauma: No Puncture of Non-Compressible V: No Recent CPR: No Diabetic Hemorrhagic Retinopat: No Organ Biopsy: No Recent Obstetric Delivery: No Glucose: No Significant Hepatic Dysfunctio: No NIH Stoke Scale >22: No Bacterial Endocarditis: No Pericarditis: No Improving Symptoms: Yes Platelets: No TPA Contraindication: Yes IV - TPa Received IV - TPa Procedure Performed?: No (Well outside the window) MARYLOU YANEZ Mar 19, 2021 16:15
[2021-03-19 16:20] LABS: ABG BASE EXCESS -1.2 MMOL/L (-2.5-2.5); ABG OXYGEN SATURATION 94 % (94-100); ABG PCO2 39 MMHG (35-45); ABG PH 7.38 (7.37-7.43); ABG PO2 68 MMHG (79-93); ABG TCO2 24.6 MMOL/L (21.0-31.0)
[2021-03-19 16:21] LABS: ALLENS TEST YES-POS; PATIENT TEMP 35.9; VENTILATOR NO
[2021-03-19 16:27] LABS: ALBUMIN 3.7 GM/DL (3.2-4.5); BASOPHILS % (AUTO) 0 % (0-10); EOSINOPHILS % (AUTO) 0 % (0-10); HEMATOCRIT 44 % (35-52); HEMOGLOBIN 13.3 g/dL (11.5-16.0); LYMPHOCYTES # (AUTO) 0.8 10^3/uL (1.0-4.0); LYMPHOCYTES % (AUTO) 8 % (12-44); MEAN CORPUSCULAR HEMOGLOBIN 32 pg (25-34); MEAN CORPUSCULAR HGB CONC 31 g/dL (32-36); MEAN CORPUSCULAR VOLUME 105 fL (80-99); MEAN PLATELET VOLUME 10.2 fL (9.0-12.2); MONOCYTES % (AUTO) 10 % (0-12); NEUTROPHILS # (AUTO) 8.1 10^3/uL (1.8-7.8); NEUTROPHILS % (AUTO) 81 % (42-75); PLATELET COUNT 268 10^3/uL (130-400); POTASSIUM 4.7 MMOL/L (3.6-5.0)
[2021-03-19 16:28] LABS: CALCIUM 9.1 MG/DL (8.5-10.1)
[2021-03-19 16:30] LABS: TOTAL PROTEIN 6.8 GM/DL (6.4-8.2)
[2021-03-19 16:31] LABS: BILIRUBIN,TOTAL 1.3 MG/DL (0.1-1.0)
[2021-03-19 16:32] LABS: INR 1.6 (0.8-1.4); PROTHROMBIN TIME PATIENT 19.2 SEC (12.2-14.7)
[2021-03-19 16:33] LABS: CREATININE SERUM 1.37 MG/DL (0.60-1.30)
--- NOTE | 2021-03-19 16:54 | Diagnostic Imaging Report ---
EXAMINATION: Chest, 1 view. HISTORY: Sepsis. COMPARISON: 04/13/2019. FINDINGS: Stable enlargement of the cardiac silhouette. There are calcifications of the aorta. Patchy airspace opacities within both lungs with blunting of the costophrenic angles. No pneumothorax. The osseous structures are intact. IMPRESSION: Bilateral pleural effusions with bibasilar atelectasis or pneumonia. Dictated by: Dictated on workstation # [id number]
[2021-03-19 18:09] LABS: BILIRUBIN,URINE NEGATIVE (NEGATIVE); CLARITY,URINE CLEAR; COLOR,URINE YELLOW; GLUCOSE, URINE (UA) NEGATIVE (NEGATIVE); KETONES,URINE NEGATIVE (NEGATIVE); LEUKOCYTE ESTERASE ,URINE NEGATIVE (NEGATIVE); NITRITE,URINE NEGATIVE (NEGATIVE); PH,URINE 5.5 (5-9); PROTEIN,URINE NEGATIVE (NEGATIVE)
[2021-03-19 18:27] LABS: AMORPHOUS SEDIMENT,UR FEW AMOR URATES /LPF; BACTERIA,URINE NEGATIVE /HPF
[2021-03-19] MEDS ORDERED: CEFEPIME INJECTION 1,000 MG in WATER (STERILE) FOR INJECTION 10 ML IV ONE (18:45)
[2021-03-19] MEDS ORDERED: VANCOMYCIN INJECTION 1,000 MG in NS (IVPB) 250 ML IV ONE (18:45)
[2021-03-19 21:00] VITALS: BP 126/85
[2021-03-19 21:36] VITALS: BP 126/85
[2021-03-19] MEDS ORDERED: ONDANSETRON 4 MG/2 ML (SDV) Z0FRAN IVP PRN (21:45)
[2021-03-19] MEDS ORDERED: ANTACID SUSP 30 ML UDC (MYLANTA) PO PRN (21:45)
[2021-03-19] MEDS: LACTATED RINGERS 1,000 ML IV SCH (21:54)
[2021-03-19 22:44] VITALS: BP 130/103
[2021-03-19] MEDS ORDERED: RT-ALBUTEROL/IPRATROPIUM 3 ML (DUONEB) VIAL INH PRN (22:45)
[2021-03-19 23:40] VITALS: BP 110/70
[2021-03-20] MEDS: ACETAMINOPHEN 325 MG TABLET PO PRN (02:09)
[2021-03-20 03:35] VITALS: BP 118/62
[2021-03-20 06:45] LABS: BASOPHILS % (AUTO) 0 % (0-10); EOSINOPHILS % (AUTO) 0 % (0-10); HEMATOCRIT 40 % (35-52); HEMOGLOBIN 12.4 g/dL (11.5-16.0); LYMPHOCYTES # (AUTO) 0.7 10^3/uL (1.0-4.0); LYMPHOCYTES % (AUTO) 8 % (12-44); MEAN CORPUSCULAR HEMOGLOBIN 33 pg (25-34); MEAN CORPUSCULAR HGB CONC 31 g/dL (32-36); MEAN CORPUSCULAR VOLUME 106 fL (80-99); MEAN PLATELET VOLUME 9.9 fL (9.0-12.2); MONOCYTES % (AUTO) 11 % (0-12); NEUTROPHILS # (AUTO) 7.1 10^3/uL (1.8-7.8); NEUTROPHILS % (AUTO) 80 % (42-75); PLATELET COUNT 197 10^3/uL (130-400); WHITE BLOOD COUNT 8.8 10^3/uL (4.3-11.0)
[2021-03-20 06:49] LABS: CHLORIDE 108 MMOL/L (98-107); POTASSIUM 4.4 MMOL/L (3.6-5.0); SODIUM 141 MMOL/L (135-145)
[2021-03-20 06:50] LABS: CALCIUM 8.4 MG/DL (8.5-10.1); GLUCOSE 93 MG/DL (70-105)
[2021-03-20 06:52] LABS: CARBON DIOXIDE 20 MMOL/L (21-32)
[2021-03-20 06:54] LABS: CREATININE SERUM 1.08 MG/DL (0.60-1.30); GFR ESTIMATED 48
[2021-03-20 06:55] LABS: BUN/CREATININE RATIO 47
--- NOTE | 2021-03-20 07:07 | Diagnostic Imaging Report ---
INDICATION: Respiratory distress. Comparison with 03/19/2021. FINDINGS: Moderate right basilar pleural effusion with increasing right basilar atelectasis and infiltrate. There is continued to be left basilar infiltrate with obscuration left hemidiaphragm as well. The upper lungs remain relatively clear. There is cardiomegaly. IMPRESSION: Persistent bilateral basilar infiltrates with increasing right basilar pleural effusion when compared with previous exam. Dictated by: Dictated on workstation # [id number]
[2021-03-20 07:52] VITALS: BP 125/78
[2021-03-20] MEDS: LACTATED RINGERS 1,000 ML IV SCH ×2 (08:25→17:45)
[2021-03-20] MEDS: CEFEPIME 1,000 MG/SWFI 10 ML IV PUSH IV SCH ×4 (08:26→20:50)
[2021-03-20] MEDS ORDERED: FURO20TA4 PO (10:28)
[2021-03-20] MEDS ORDERED: CHOL500049 PO (10:28)
[2021-03-20] MEDS ORDERED: POTA10TA6 PO (10:28)
[2021-03-20] MEDS ORDERED: MOM10U PO (10:28)
[2021-03-20] MEDS ORDERED: MULT-349 PO (10:28)
[2021-03-20] MEDS ORDERED: CALC-938 PO (10:28)
[2021-03-20] MEDS ORDERED: ENLP2.5T PO (10:28)
[2021-03-20] MEDS ORDERED: CHOL100048 PO (10:28)
[2021-03-20] MEDS ORDERED: MTP25TSR PO (10:28)
[2021-03-20] MEDS ORDERED: ACET-2267 PO (10:28)
[2021-03-20] MEDS ORDERED: DOCU-143 PO (10:28)
[2021-03-20] MEDS ORDERED: ASPI-1238 PO (10:33)
[2021-03-20] MEDS ORDERED: ASPI-999 PO (10:33)
--- NOTE | 2021-03-20 10:38 | Physical Therapy Evaluation ---
PT Evaluation-General Medical Diagnosis Admission Date Mar 19, 2021 at 18:40 Medical Diagnosis: Acute Respiratory Failure/pneumonia Onset Date: Mar 20, 2021 Therapy Diagnosis Therapy Diagnosis: weakness and impaired mobility Height/Weight Height (Feet): 5 Height (Inches): 5.00 Weight (Pounds): 107 Weight (Ounces): 1.0 Precautions Precautions/Isolations: Contact Isolation, Fall Prevention, Standard Precautions Referral Reason for Referral: Evaluation/Treatment Medical History Pertinent Medical History: CAD, Heart Failure, [place] Additional Medical History (R) hip fx in January, (R) wrist fx approximately 1 mo ago Current History yes Social History Home: [facility] Current Living Status: Alone [facility]. Primarily utilizes a w/c for mobility. Does do some short distances with a platform walker. Prior Prior Level of Function SCALE: Activities may be completed with or without assistive devices. 0-Ikcyvhwldi-mmrjokx completes the activity by him/herself with no assistance from a helper. 5-Set-up or Clean-up Assistance-helper sets up or cleans up; patient completes activity. Ririe assists only prior to or following the activity. 4-Supervision or Touching Assistance-helper provides verbal cues and/or touching/steadying and/or contact guard assistance as patient completes activity. Assistance may be provided throughout the activity or intermittently. 3-Partial/Moderate Assistance-helper does LESS THAN HALF the effort. Ririe lifts, holds or supports trunk or limbs, but provides less than half the effort. 2-Substantial/Maximal Assistance-helper does MORE THAN HALF the effort. Ririe lifts or holds trunk or limbs and provides more than half the effort. 2-Eyfuzgciy-suvujs does ALL the effort. Patient does none of the effort to complete the activity. Or, the assistance of 2 or more helpers is required for the patient to complete the activity. If activity was not attempted, code reason: 7-Patient Refused. 9-Not Applicable-not attempted and the patient did not perform the activity before the current illness, exacerbation or injury. 10-Not Attempted due to Environmental Limitations-(lack of equipment, weather restraints, etc.). 88-Not Attempted due to Medical Conditions or Safety Concerns. Bed Mobility: 4 Transfers (B,C,W/C): 4 Gait: 2 Wheelchair Mobility: 4 PT Evaluation-Current Subjective Pt is alert and oriented. She has no c/o pain and indicates that she does stand and do short distance walking with physical [facility]. Objective Patient Orientation: Person, Place, Time ROM/Strength ROM Upper Extremities limited overhead reach (B) ROM Lower Extremities limited hip abduction (B) Strength Upper Extremities gross 3/5 Strength Lower Extremities gross 3+/5 Sensory Vision: Functional Hearing: Functional Transfers Roll Left to Right (QC): 3 Sit to Lying (QC): 3 Lying to Sitting/Side of Bed(Q: 3 Sit to Stand (QC): 3 Chair/Agl-ij-Uwlgi Xfer(QC): 2 Pt able to stand with Minimal Assist, Moderate assist for pivot transfer to maintain balance. Gait Does the Patient Walk?: Yes Mode of Locomotion: Both Anticipated Mode of Locomotion: Both Distance: 2-3 steps Gait Assistive Device: Walker Platform Comments/Gait Description Pt has been using a platform walker due to a recent wrist fx. Wheelchair Training Does the Pt Use a Wheelchair?: Yes Distance: 150 Balance Sitting Static: Fair Sitting Dynamic: Poor Standing Static: Poor Standing Dynamic: Poor Assessment/Needs Pt is weak from prolonged bed mobility. Standing balance is poor with tendency to be in extension and lean backward. Rehab Potential: Fair Post Rehab Potential-Barriers: age;co-morbidities PT Assisted Goals Assisted Goals PT Music Librarian Goals Time Frame: Mar 29, 2021 Roll Left & Right (QC): 5 Sit to Lying (QC): 4 Lying-Sitting on Side/Bed(QC): 4 Sit to Stand (QC): 4 Chair/Sxw-id-Pbtfk Xfer(QC): 4 Walk 10 feet (QC): 4 PT Plan Problem List Problem List: Activity Tolerance, Balance, Gait, Transfer, Bed Mobility, ROM Treatment/Plan Treatment Plan: Continue Plan of Care Treatment Duration: Mar 29, 2021 Frequency: 6 times per week Estimated Hrs Per Day: .25 hour per day Discharge Recommendations Therapy Discharge Recommendati: Post Acute PT Barriers to Progress complexity of illness Time/GCodes Time In: 930 Time Out: 1000 Total Billed Treatment Time: 30 Total Billed Treatment visit, evaluation Moderate Complexity 30 minutes EDITH DAVILA PT Mar 20, 2021 10:38
[2021-03-20 11:53] VITALS: BP 107/56
--- NOTE | 2021-03-20 12:09 | History & Physical-Hospitalist ---
MADALYN LADD 03/20/21 1209: History of Present Illness HPI/Chief Complaint Nimisha Hogan is an 89y/o F who presents today with pneumonia. Pt is a poor historian. She thought she was in [place] when asked where she was and later asked why she was in [place] after she had been told a couple minutes earlier that she was in [place]. Pt did not know why she was in hospital when asked. According to the ER note from yesterday pt was brought in from where she lives because caregivers had noticed that she had a blank stare and looked like she did not feel well. Pt was exposed to COVID-19 by a caregiver 5 days ago. She has tested negative for COVID-19 twice since that exposure. She did have surgery 2 weeks ago in [place] to repair a hip fracture secondary to a fall. Source: patient, other (ER note) Date Seen 03/20/21 Time Seen by a Provider: 08:24 Attending Physician Zackery Delacruz MD PCP No,Local Physician Referring Physician Date of Admission Mar 19, 2021 at 18:40 Home Medications & Allergies Home Medications Reviewed patient Home Medication Reconciliation performed by pharmacy medication reconciliations heavy line technician and/or nursing. Patients Allergies have been reviewed. Allergies Allergies Coded Allergies amoxicillin (Unverified Allergy, Unknown, 07/14/18) Past Epkhuwz-Odytqv-Mgrqdh Hx Patient Social History Tobacco Use?: No Use of E-Cig and/or Vaping dev: No Substance use?: No Alcohol Use?: No Pt feels they are or have been: Unable to obtain Immunizations Up To Date First/Initial COVID19 Vaccinat: NONE Second COVID19 Vaccination Brian: NONE Tetanus Booster (TDap): Unknown Seasonal Allergies Seasonal Allergies: No Current Status Advance Directives: Unable to obtain Primary Language: Romansh Preferred Spoken Language: Romansh Sensory deficits: Vision impairment Implanted or Applied Medical D: Pacemaker Past Medical History Surgeries: Coronary Stent, 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 Cardiomyopathy, Coronary Artery Disease, Heart Attack, Hypertension CLEANERS History: 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 Chronic Constipation Glaucoma Skin Did You Recieve Any Treatments: Yes What Type of Treatment Did You: Surgical Intervention Recent Skin Changes Blood Disorders: No Adverse Reaction/Blood Tranf: No Family Medical History Hypertension 19 FATHER No Pertinent Family Hx Review of Systems Constitutional: No chills, No fever Respiratory: No cough, No short of breath Cardiovascular: No chest pain, No palpitations Gastrointestinal: nausea, vomiting Psychiatric/Neurological: Denies Headache, Denies Tingling Physical Exam Physical Exam Vital Signs Vital Signs - First Documented 03/19/21 03/19/21 03/19/21 15:45 16:30 22:44 Temp 35.9 Pulse 87 Resp 22 B/P (MAP) 130/103 (112) Pulse Ox 93 O2 Delivery Room Air O2 Flow Rate 2.00 FiO2 21 Capillary Refill : Less Than 3 Seconds Height, Weight, BMI Height: 5'5.00" Weight: 107lbs. 1.0oz. 48.401031hj; 18.10 BMI Method:Stated General Appearance: Chronically ill, Thin Respiratory: No Respiratory Distress, Rales (lower lung aldridge b/l) Cardiovascular: No Bradycardia, No Tachycardia; Other (Murmurs heard over lower left sternal border and left 5th intercostal space medial to midclavicular line) Gastrointestinal: Non Tender, Soft Extremity: Other (Feet up to mid griffith darker in color. Scar on left leg. Bullae present on lf lateral leg above the lateral malleolus. No signs of infection.) Neurologic/Psychiatric: Alert; No Oriented x3 (Oriented to time and person not place) Results Results/Procedures Labs Laboratory Tests 03/19/21 15:50 03/20/21 06:00 Patient resulted labs reviewed. Assessment/Plan Assessment and Plan Assessment HAP LENA CAD HTN Plan Continue cefepine, duoneb, and fluids. Continue monitoring. Clinical Quality Measures Stroke: Symptoms onset unknown: Yes ZACKERY DELACRUZ MD 03/20/21 1935: History of Present Illness Time Seen by a Provider: 10:25 Past Feiinzv-Ceyypt-Dpbnsd Hx Family Medical History Hypertension 19 FATHER Results Results/Procedures Imaging: Reviewed Imaging Films, Reviewed Imaging Report Assessment/Plan Admission Diagnosis Healthcare associated pneumonia Admission Status: Inpatient Order (span 2 midnights) Reason for Inpatient Admission: IV antibiotics Assessment and Plan Admitted with pneumonia. Not septic. Continue antibiotics. Diagnosis/Problems Diagnosis/Problems (1) Healthcare-associated pneumonia Status: Acute (2) LENA (acute kidney injury) Status: Acute Supervisory-Addendum Brief Verification & Attestation Participated in pt care: history, MDM, physical Personally performed: exam, history, MDM, supervision of care Care discussed with: Medical Student Procedures: n/a Results interpretation: Verified all documentation A medical student performed and documented this service in my presence. I reviewed and verified all information documented by the medical student and made modifications to such information, when appropriate. I personally performed the physical exam and medical decision making. MADALYN LADD Mar 20, 2021 12:09 ZACKERY DELACRUZ MD Mar 20, 2021 19:35
--- NOTE | 2021-03-20 14:08 | Occ Therapy Progress Note ---
Therapy Progress Note OT orders received and chart reviewed. OT attempted evaluation, but pt too lethargic to participate in skilled therapy at this time. OT will attempt evaluation tomorrow. 1, visit 1342 CRISPIN KUMAR OT Mar 20, 2021 14:08
[2021-03-20 16:00] VITALS: BP 111/60
[2021-03-20 20:00] VITALS: BP 96/54
[2021-03-21] VITALS: BP 111/66
[2021-03-21] MEDS: LACTATED RINGERS 1,000 ML IV SCH ×2 (03:52→13:47)
[2021-03-21 04:00] VITALS: BP 111/59
[2021-03-21 06:31] LABS: POTASSIUM 4.3 MMOL/L (3.6-5.0)
[2021-03-21 06:32] LABS: CALCIUM 8.3 MG/DL (8.5-10.1)
[2021-03-21 06:36] LABS: CREATININE SERUM 0.84 MG/DL (0.60-1.30)
[2021-03-21 07:34] VITALS: BP 118/65
[2021-03-21] MEDS: CEFEPIME 1,000 MG/SWFI 10 ML IV PUSH IV SCH ×2 (08:03)
--- NOTE | 2021-03-21 10:06 | Physical Therapy Daily Note ---
PT Daily Note-Current Subjective Patient reluctantly agrees to PT. Mental Status Patient Orientation: Person, Time, Situation Attachments: Oxygen, Angela Catheter, IV Transfers SCALE: Activities may be completed with or without assistive devices. 5-Tmhpekypoj-kaxmhlf completes the activity by him/herself with no assistance from a helper. 5-Set-up or Clean-up Assistance-helper sets up or cleans up; patient completes activity. [place] assists only prior to or following the activity. 4-Supervision or Touching Assistance-helper provides verbal cues and/or touching/steadying and/or contact guard assistance as patient completes activity. Assistance may be provided throughout the activity or intermittently. 3-Partial/Moderate Assistance-helper does LESS THAN HALF the effort. [place] lifts, holds or supports trunk or limbs, but provides less than half the effort. 2-Substantial/Maximal Assistance-helper does MORE THAN HALF the effort. [place] lifts or holds trunk or limbs and provides more than half the effort. 7-Zpnedgjpe-cktnib does ALL the effort. Patient does none of the effort to complete the activity. Or, the assistance of 2 or more helpers is required for the patient to complete the activity. If activity was not attempted, code reason: 7-Patient Refused. 9-Not Applicable-not attempted and the patient did not perform the activity before the current illness, exacerbation or injury. 10-Not Attempted due to Environmental Limitations-(lack of equipment, weather restraints, etc.). 88-Not Attempted due to Medical Conditions or Safety Concerns. Lying to Sitting/Side of Bed(Q: 1 Sit to Stand (QC): 2 (max assist with VC's for body placement in right platform FWW) Chair/Cwd-rr-Bzxlo Xfer(QC): 2 Gait Training Does the Patient Walk?: No and Walking Goal IS indicated Distance: 5' Gait Persons Needed: 1 Gait Assistive Device: FWW max assist with gait to recliner Exercises Seated Therapy Exercises: Long arc quads Seated Reps: 12 (AAROM) Assessment Patient requires time to complete functional tasks. Patient is up in recliner with needs met. PT Skilled Nursing Goals Airdrop Systems Technician Goals PT Skilled Nursing Goals Time Frame: Mar 29, 2021 Roll Left & Right (QC): 5 Sit to Lying (QC): 4 Lying-Sitting on Side/Bed(QC): 4 Sit to Stand (QC): 4 Chair/Cag-ab-Gqmmz Xfer(QC): 4 Walk 10 feet (QC): 4 PT Plan Treatment/Plan Treatment Plan: Continue Plan of Care Treatment Plan: Bed Mobility, Education, Functional Activity Arely, Functional Strength, Gait, Safety, Therapeutic Exercise, Transfers Treatment Duration: Mar 29, 2021 Frequency: 6 times per week Estimated Hrs Per Day: .25 hour per day Time/GCodes Time In: 905 Time Out: 916 Total Billed Treatment Time: 11 Total Billed Treatment 1 visit FA 11 min ROOPA FORMAN PT Mar 21, 2021 10:06
[2021-03-21 11:28] VITALS: BP 127/62
--- NOTE | 2021-03-21 11:46 | Occupational Therapy Eval ---
OT Evaluation-General/PLF Medical Diagnosis Admission Date Mar 19, 2021 at 18:40 Medical Diagnosis: Acute Respiratory Failure/pneumonia Onset Date: Mar 20, 2021 Therapy Diagnosis Therapy Diagnosis: decreased ADL status Height/Weight Height (Feet): 5 Height (Inches): 5.00 Weight (Pounds): 107 Weight (Ounces): 1.0 Precautions Precautions/Isolations: Fall Prevention, Standard Precautions Referral Physician: Manny Referral Reason: Evaluation/Treatment Medical History Pertinent Medical History: CAD, Heart Failure, [place] Additional Medical History (R) hip fx in January, (R) wrist fx approximately 1 mo ago Current History ED due to blank stare and looked like she didnt feel well. Social History Home: [place] Current Living Status: Alone ADL-Prior Level of Function SCALE: Activities may be completed with or without assistive devices. 0-Fxrynebbyk-ivhedpc completes the activity by him/herself with no assistance from a helper. 5-Set-up or Clean-up Assistance-helper sets up or cleans up; patient completes activity. [place] assists only prior to or following the activity. 4-Supervision or Touching Assistance-helper provides verbal cues and/or touching/steadying and/or contact guard assistance as patient completes activity. Assistance may be provided throughout the activity or intermittently. 3-Partial/Moderate Assistance-helper does LESS THAN HALF the effort. [place] lifts, holds or supports trunk or limbs, but provides less than half the effort. 2-Substantial/Maximal Assistance-helper does MORE THAN HALF the effort. [place] lifts or holds trunk or limbs and provides more than half the effort. 4-Etjdcozpa-jctdlm does ALL the effort. Patient does none of the effort to co mplete the activity. Or, the assistance of 2 or more helpers is required for the patient to complete the activity. If activity was not attempted, code reason: 7-Patient Refused. 9-Not Applicable-not attempted and the patient did not perform the activity before the current illness, exacerbation or injury. 10-Not Attempted due to Environmental Limitations-(lack of equipment, weather restraints, etc.). 88-Not Attempted due to Medical Conditions or Safety Concerns. ADL PLOF Comments Resides at [place], uses w/c primarily for functional mobility. She has assistance with all ADLs. Self Care: Needed Some Help OT Current Status Subjective Pt seated upright in recliner, agreeable to evaluation and tx. Mental Status/Objective Patient Orientation: Person, Place, Situation Attachments: IV Current Glasses/Contacts: Yes Hand Dominance: Right Upper Extremity ROM grossly WFL, limited overhead reach bilaterally. Upper Extremity Coordination grossly WFL Upper Extremity Strength 3/5 BUEs ADL-Treatment Eating (QC): 5 (set up assist) Oral Hygiene (QC): 4 (SBA, min cues for sequencing.) Other Treatments Pt seated in recliner, OT educated pt on purpose and benefit of OT. Pt provided information about PLOF and home set up, and participated in UE screen. Pt brushed teeth very thoroughly, min cues for sequencing. OT assisted pt with sett ing up lunch, then she was able to eat. Post tx, pt seated in recliner, legs elevated, and eating lunch. call light in reach and all needs met. Education OT Patient Education: Correct positioning, Energy conservation, Exercise program, Modified ADL techniques, Progress toward Goal/Update tx plan, Purpose of tx/functional activities, Rehab process, Safety issues, Transfer techniques Teaching Recipient: Patient Teaching Methods: Discussion Response to Teaching: Verbalize Understanding OT Chcf Goals Pyrometer Mechanic Goals Time Frame: Mar 29, 2021 Eating (QC): 5 Oral Hygiene (QC): 5 Toileting Hygiene (QC): 3 Shower/Bathe Self (QC): 2 Upper Body Dressing (QC): 4 Lower Body Dressing (QC): 2 On/Off Footwear (QC): 2 Additional Goals: 1-Demonstrate ADL Tasks, 2-Verbalize Understanding, 3- ImproveStrength/Arely 1=Demonstrate adherence to instructed precautions during ADL tasks. 2=Patient will verbalize/demonstrate understanding of assistive devices/modifica tions for ADL. 3=Patient will improve strength/tolerance for activity to enable patient to perform ADL's. OT Education/Plan Problem List/Assessment Assessment: Decreased Activ Tolerance, Decreased UE Strength, Dependent Transfers, Impaired Funct Balance, Impaired I ADL's, Impaired Self-Care Skills Discharge Recommendations Plan/Recommendations: Continue POC Treatment Plan/Plan of Care Patient would benefit from OT for education, treatment and training to promote independence in ADL's, mobility, safety and/or upper extremity function for ADL's. Plan of Care: ADL Retraining, Functional Mobility, UE Funct Exercise/Act Treatment Duration: Mar 29, 2021 Frequency: 5 times per week Estimated Hrs Per Day: .25 hour per day Rehab Potential: Fair Time/GCodes Start Time: 11:30 Stop Time: 12:00 Total Time Billed (hr/min): 30 Billed Treatment Time 1, EVM (15'), ADL (15') CRISPIN KUMAR OT Mar 21, 2021 11:46
[2021-03-21] MEDS ORDERED: CEFD300C3 PO (12:05)
[2021-03-21] MEDS ORDERED: MIRT-47 PO (12:05)
--- NOTE | 2021-03-21 13:11 | Discharge Summary ---
Discharge Summary Hospital Course Hospital Course Date of Admission: Mar 19, 2021 at 18:40 Admission Diagnosis : Healthcare associated pneumonia Family Physician/Provider: Billie Dumont Physician Date of Discharge: 03/21/21 Discharge Diagnosis: Healthcare associated pneumonia, acute kidney injury Hospital Course: Nimisha Hogan is an 89-year-old female with recent hip surgery who presented from [facility] and was admitted with healthcare associated pneumonia. She was treated with IV antibiotics and fluids. She had an acute kidney injury which improved. She was transitioned to oral Omnicef and will complete course of antibiotics as an outpatient. She had lower extremity wounds and was evaluated by wound care. She was suffering from depression and was started on mirtazapine. She was discharged in stable condition and will resume skilled therapies. Labs and Pending Lab Test: Laboratory Tests 03/21/21 05:52: Sodium Level 141, Potassium Level 4.3, Chloride Level 109H, Carbon Dioxide Level 23, Anion Gap 9, Blood Urea Nitrogen 41H, Creatinine 0.84, Estimat Glomerular Filtration Rate 64, BUN/Creatinine Ratio 49, Glucose Level 91, Calcium Level 8.3L Microbiology 03/19/21 Blood Culture - Preliminary, Resulted No growth 03/19/21 Urine Culture - Final, Complete NO GROWTH Home Meds Active Cefdinir 300 Mg Capsule 300 Mg PO BID 7 Days Mirtazapine 15 Mg Tab.rapdis 7.5 Mg PO HS 30 Days Reported Aspirin 81 Mg Tab.chew 81 Mg PO BID Aspirin EC (Aspirin) 81 Mg Tablet.dr 81 Mg PO DAILY Calcium Carbonate 300 Mg Tab.chew 600 Mg PO Q12H PRN Milk of Magnesia (Magnesium Hydroxide) 2,400 Mg/10 Ml Oral.susp 30 Ml PO DAILY PRN Tylenol Extra Strength (Acetaminophen) 500 Mg Tablet 1,000 Mg PO Q6H PRN Enalapril Maleate 2.5 Mg Tablet 2.5 Mg PO BID HOLD IF BP LESS THAN 90/60 OR HR LESS THAN 60 Vitamin D3 (Cholecalciferol (Vitamin D3)) 25 Mcg Capsule 25 Mcg PO DAILY Thera-M Caplet (Multivit,Ther Iron,Ca,FA & Min) 1 Each Tablet 1 Each PO DAILY Metoprolol Succinate 25 Mg Tab.er.24h 25 Mg PO DAILY HOLD IF BP LESS THAN 90/60 OR HR LESS THAN 60 Furosemide 20 Mg Tablet 20 Mg PO DAILY TAKING FOR 5 DAYS STARTING 03-19-2021 Klor-Con 10 (Potassium Chloride) 10 Meq Tablet.er 10 Meq PO DAILY TAKING FOR 5 DAYS STARTING ON 03-19-2021 Colace (Docusate Sodium) 100 Mg Capsule 100 Mg PO DAILY Vitamin D3 (Cholecalciferol (Vitamin D3)) 1,250 Mcg Capsule 1,250 Mcg PO WED Instructions to Patient/Family Assessment/Instructions Take medications as prescribed. Follow-up with your primary care physician and wound care. Return with worsening shortness of breath or if you feel like you are getting worse. Follow Up Appt.: Next custodial rounds Skilled NF Admit to: [facility]ification ([facility]) I certify that SNF services are required to be given on an inpatient basis because of the above named patient's need for correction care on a continuing basis for the conditions(s) for which he/she was receiving inpatient hospital services prior to his/her transfer to the [facility]. Shelter Facility Order: Nursing Services, Inspector Final Assembly Mechanical-Evaluate & Treat, Physical Therapy-Evaluate & Treat, Wound Care-Eval/Treat Oxygen Delivery Method: Room Air Oxygen Flow Rate L/min (Range): 2 PRN Discharge Diet: No Restrictions Daily Activity as Tolerated: Yes Resuscitation Status: Full Code Zackery Dleacruz Mar 21, 2021 13:02 Discharge Physical Exam General: Alert, Cooperative, No Acute Distress HEENT: Atraumatic, EOMI, Mucous Memb Moist/[place] Lungs: Clear to Auscultation, Normal Air Movement Heart: Regular Rate, Normal S1, Normal S2, No Murmurs Abdomen: Normal Bowel Sounds, Soft, No Tenderness Extremities: Other (3+ pitting edema, left lower extremity bullae, chronic venous stasis dermatitis) Neuro: Normal Speech, Other (motor weakness) Psych/Mental Status: Mental Status NL, Other (depressed affect) ZACKERY DELACRUZ MD Mar 21, 2021 13:10
[2021-03-21] MEDS: ACETAMINOPHEN 325 MG TABLET PO PRN (13:28)
--- NOTE | 2021-03-21 14:27 | Wound Care Assessment ---
Wound Care Assessment Date Seen by Provider: Mar 21, 2021 Time Seen by Provider: 11:45 Chief Complaint Calf ulcer. HPI The patient is an 89 year old female with a burst L calf blister and bilateral lymphedema. Elevation recommended. Will follow up in out-patient clinic. Review of Systems Pulmonary: No Dyspnea Exam Vital Signs Date Time Temp Pulse Resp B/P (MAP) Pulse Ox O2 Delivery O2 Flow Rate FiO2 03/21/21 13:11 Room Air 03/21/21 13:00 110 03/21/21 11:28 35.8 18 127/62 (83) 92 03/21/21 08:00 2.00 03/19/21 22:44 21 Capillary Refill : Less Than 3 Seconds Extremities: other (L calf open ulcer due to ruptured blister.) Results Laboratory Tests 03/21/21 05:52: Sodium Level 141, Potassium Level 4.3, Chloride Level 109H, Carbon Dioxide Level 23, Anion Gap 9, Blood Urea Nitrogen 41H, Creatinine 0.84, Estimat Glomerular Filtration Rate 64, BUN/Creatinine Ratio 49, Glucose Level 91, Calcium Level 8.3L Microbiology 03/19/21 Blood Culture - Preliminary, Resulted No growth 03/19/21 Urine Culture - Final, Complete NO GROWTH Microbiology 03/19/21 Blood Culture - Preliminary, Resulted No growth 03/19/21 Blood Culture - Preliminary, Resulted No growth 03/19/21 Urine Culture - Final, Complete NO GROWTH Assessment/Plan/Dx 1. L calf ulcer. Plan: the patient is recommended to elevate. Will follow up in out-patient cl in. BELTRAN MITCHELL MD Mar 21, 2021 14:27
--- NOTE | 2021-03-21 15:32 | Physician Query Clarification ---
Physician Query-General Query to Physician: The medical record reflects the following clinical scenario: The patient, in the setting of History/Risk factors, Advanced age, HAP, LENA Clinical Findings Admission VS: RR 20-22, 92% on RA, (P/F 65/.46=982), 93% on 2L (P/F=69/.56=147), Change in mental status, Treatment Albuterol, Cefepime IV, Supplemental 02, IV LR Question: Do you agree with the impression of Acute hypoxic respiratory failure, present on admission per ER physician Dr. Jatin Carrillo? 1. Yes; will document Acute hypoxic respiratory failure, present on admission in the Progress Notes 2. No; will continue current documentation in the Progress Notes 3. Other; will document explanation of clinical findings 4. Clinically undetermined; no explanation for clinical findings Please clarify and document your clinical opinion in the Progress Notes and Discharge Summary including the definitive and/or presumptive diagnosis, (suspected or probable), related to the above clinical findings. Please include clinical findings supporting your diagnosis. In responding to this query, please exercise your independent professional judgment. The purpose of this communication is to more accurately reflect the complexity of your patients condition. The fact that a question is asked does not imply that any particular answer is desired or expected. Please remember a lack of response to the above will prompt a phone page by CDI/coding staff Thank you for timely response to this clarification. Brandi Cuevas MSN, RN Clinical Mine Engineer [phone] [email or web address] PHYSICIAN RESPONSE: Based on the clinical findings in the record, please respond to the query above on this document as an addendum. Physician Response: Physician Response 2 If you have questions please contact: Bevel Gear Generator Operator: Ext: Thank you for your time and cooperation. Clinical Mine Engineer/Bevel Gear Generator Operator This is a permanent part of the medical record BRANDI CUEVAS Mar 21, 2021 15:32 ZACKERY DELACRUZ MD Mar 27, 2021 20:06
[2021-03-21] MEDS ORDERED: CEFEPIME 1,000 MG/SWFI 10 ML IV PUSH IV SCH ×2 (16:00)
[2021-03-21 16:28] VITALS: BP 127/62
[2021-03-21] MEDS ORDERED: MIRTAZAPINE 15 MG (REMERON) TAB PO SCH (21:00)
--- NOTE | 2021-03-26 03:44 | Physician Query Clarification ---
PQ-Uncertain Diagnosis Admission/Discharge Admission Date: Mar 19, 2021 at 18:40 Discharge Date: Mar 21, 2021 at 16:30 ZACKERY Reyes MD The medical record reflects the following clinical scenario: History/Risk Factors: 89 y/o female patient admitted with healthcare associated pneumonia, acute hypoxic respiratory failure documented in ER physician notes only. Clinical Findings: RR 20-22, 92% on RA, (P/F 65/.90=313), 93% on 2L (P/F=69/.92=845), Change in mental status. Treatment: Albuterol, Cefepime IV, Supplemental 02, IV LR. Question: Is acute hypoxic respiratory failure a clinically valid diagnosis? Acute hypoxic respiratory failure was documented in the ER physician notes, with no further documentation in the medical record. Please document a response in Progress Note or Discharge Summary. 1. Yes, clinically valid, condition resolved. 2. No, condition ruled out. 3. Other, with explanation of clinical findings. 4. Undetermined, no explanation for clinical findings. PHYSICIAN RESPONSE Diagnosis clinically valid: No, conditon ruled out Please remember a lack of response to the above will prompt a phone page by [facility]/Coding staff. In responding to this query, please exercise your independent professional judgment. The purpose of this communication is to more accurately reflect the complexity of your patients condition. The fact that a question is asked does not imply that any particular answer is desired or expected. Thank you for your timely response to this clarification. Requestors name: [ ] Phone # [ ] THIS PHYSICIAN QUERY FORM IS A PERMANENT PART OF THE MEDICAL RECORD JUANA ANDREWS Mar 26, 2021 03:44 ZACKERY DELACRUZ MD Mar 27, 2021 20:08
== END 2021-03-21 16:30 | DRG 194 ==
LOC: EDUNIT# 15:39 → ER 15:41 → 4TH 18:40
PROVIDERS: ADMIT Internal Medicine; ATTEND Internal Medicine
DX: J18.9 Pneumonia, unspecified organism (principal); I42.9 Cardiomyopathy, unspecified; N17.9 Acute kidney failure, unspecified; Z20.822 Contact with and (suspected) exposure to COVID-19; I25.10 Atherosclerotic heart disease of native coronary artery without angina pectoris; I10 Essential (primary) hypertension; H40.9 Unspecified glaucoma; Y95 Nosocomial condition; I25.2 Old myocardial infarction; Z79.82 Long term (current) use of aspirin; Z79.899 Other long term (current) drug therapy; Z95.5 Presence of coronary angioplasty implant and graft
CPT/HCPCS: 36415; 51701; 71045; 80048; 80053; 81000; 82805; 82947; 83605; 84145; 84484; 85025; 85610; 85730; 87040; 87088; 87636; 93005; 96374

== ENCOUNTER 2021-03-23 20:06 | Inpatient (IN) | payer MEDICARE, OTHER ==
[~2021-03-23] VITALS: Ht 157.5 cm; Wt 43.0 kg
[~2021-03-23 20:06] MED LIST changes: +ACET-2267 PO; +CALC-938 PO; +CEFD300C3 PO; +CHOL100048 PO; +CHOL500049 PO; +DOCU-143 PO; +FURO20TA4 PO; +MIRT-47 PO; +MOM10U PO; +MULT-349 PO; +POTA10TA6 PO
[2021-03-23] MEDS ORDERED: NS IV 1000 ML 1,000 ML IV SCH (20:15)
[2021-03-23 20:26] LABS: BASOPHILS % (AUTO) 0 % (0-10); EOSINOPHILS % (AUTO) 0 % (0-10); HEMATOCRIT 42 % (35-52); HEMOGLOBIN 12.7 g/dL (11.5-16.0); LYMPHOCYTES # (AUTO) 0.7 10^3/uL (1.0-4.0); LYMPHOCYTES % (AUTO) 8 % (12-44); MEAN CORPUSCULAR HEMOGLOBIN 32 pg (25-34); MEAN CORPUSCULAR HGB CONC 31 g/dL (32-36); MEAN CORPUSCULAR VOLUME 104 fL (80-99); MEAN PLATELET VOLUME 10.1 fL (9.0-12.2); MONOCYTES # (AUTO) 0.9 10^3/uL (0.0-1.0); MONOCYTES % (AUTO) 10 % (0-12); NEUTROPHILS # (AUTO) 7.1 10^3/uL (1.8-7.8); NEUTROPHILS % (AUTO) 80 % (42-75); PLATELET COUNT 245 10^3/uL (130-400); WHITE BLOOD COUNT 8.9 10^3/uL (4.3-11.0)
[2021-03-23 20:40] LABS: INR 1.6 (0.8-1.4); PROTHROMBIN TIME PATIENT 19.3 SEC (12.2-14.7)
[2021-03-23 20:46] LABS: BILIRUBIN,URINE 2+ (NEGATIVE); CLARITY,URINE CLOUDY; COLOR,URINE YELLOW; GLUCOSE, URINE (UA) NEGATIVE (NEGATIVE); KETONES,URINE TRACE (NEGATIVE); LEUKOCYTE ESTERASE ,URINE NEGATIVE (NEGATIVE); NITRITE,URINE NEGATIVE (NEGATIVE); PROTEIN,URINE 1+ (NEGATIVE)
[2021-03-23 20:49] LABS: ALANINE AMINOTRANSFERASE 35 U/L (0-55); ALBUMIN 3.4 GM/DL (3.2-4.5); ALKALINE PHOSPHATASE 154 U/L (40-136); BILIRUBIN,TOTAL 0.9 MG/DL (0.1-1.0); BUN/CREATININE RATIO 36; CALCIUM 8.9 MG/DL (8.5-10.1); CARBON DIOXIDE 20 MMOL/L (21-32); CHLORIDE 108 MMOL/L (98-107); CREATINE KINASE 51 U/L (29-168); CREATININE SERUM 1.52 MG/DL (0.60-1.30); GFR ESTIMATED 32; GLUCOSE 133 MG/DL (70-105); LIPASE 17 U/L (8-78); MAGNESIUM 2.5 MG/DL (1.6-2.4); SODIUM 141 MMOL/L (135-145); TOTAL PROTEIN 7.3 GM/DL (6.4-8.2)
[2021-03-23 20:56] LABS: ERYTHROCYTE SEDIMENTATION RATE 10 MM/HR (0-30)
[2021-03-23 21:06] LABS: POTASSIUM 7.5 MMOL/L (3.6-5.0)
[2021-03-23 21:09] LABS: BACTERIA,URINE TRACE /HPF
[2021-03-23 21:09] LABS: CREATINE KINASE MB 3.5 NG/ML (<6.6); TSH (THYROID ANALYZER) 9.02 UIU/ML (0.35-4.94)
[2021-03-23 21:10] LABS: AMORPHOUS SEDIMENT,UR MOD AMOR URATES /LPF
--- NOTE | 2021-03-23 21:11 | Diagnostic Imaging Report ---
PROCEDURE: CT head w/o r/o stroke. TECHNIQUE: Multiple contiguous axial images were obtained through the brain without the use of intravenous contrast. Auto Exposure Controls were utilized during the CT exam to meet ALARA standards for radiation dose reduction. INDICATION: Neurological deficit. Altered mental status. COMPARISON: 04/13/2019. FINDINGS: The ventricles and cortical sulci are prominent. There is no midline shift or mass effect identified. No acute intracranial hemorrhage is seen. Areas of decreased attenuation are seen in the subcortical and periventricular white matter. These likely represent chronic microvascular disease. 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 No CT evidence of acute territorial ischemia is seen. The calvarium is intact. There is mucosal thickening and fluid in the right maxillary sinus with findings of chronic sinusitis, otherwise the paranasal sinuses appear clear. IMPRESSION: 1. No acute intracranial hemorrhage. No CT evidence of acute territorial ischemia. 2. Generalized parenchymal volume loss and findings of chronic microvascular disease. Dictated by: Dictated on workstation # [id number]
[2021-03-23 21:13] LABS: AMPHETAMINE SCREEN, URINE NEGATIVE (NEGATIVE); BARBITURATE SCREEN URINE NEGATIVE (NEGATIVE); BENZODIAZEPINES SCREEN URINE NEGATIVE (NEGATIVE); CANNABINOID SCREEN, URINE NEGATIVE (NEGATIVE); COCAINE SCREEN URINE NEGATIVE (NEGATIVE); METHADONE STAT NEGATIVE (NEGATIVE); METHAMPHETAMINE SCREEN URINE S NEGATIVE (NEGATIVE); OPIATE SCREEN URINE NEGATIVE (NEGATIVE); OXYCODONE STAT NEGATIVE (NEGATIVE); PROPOXYPHENE STAT NEGATIVE (NEGATIVE); TRICYCLIC ANTIDEPRESSANTS SCRE NEGATIVE (NEGATIVE)
[2021-03-23] MEDS ORDERED: fentaNYL INJ 100 MCG/2 ML AMP IVP ONE (21:15)
[2021-03-23] MEDS ORDERED: CEFEPIME INJECTION 1,000 MG in WATER (STERILE) FOR INJECTION 10 ML IV ONE (21:15)
[2021-03-23] MEDS ORDERED: DIGOXIN 0.25 MG/ML (LANOXIN) 2 ML AMP IV ONE (21:15)
--- NOTE | 2021-03-23 21:32 | Diagnostic Imaging Report ---
HISTORY: Altered mental status. COMPARISON: 03/20/2021. TECHNIQUE: Frontal view of the chest. FINDINGS: There is a moderate right pleural effusion and a small left pleural effusion with bibasilar airspace opacities. Overall aeration is stable since the prior study. The cardiac silhouette is stable in size. There is aortic atherosclerosis. There is no pneumothorax. There is diffuse osteopenia. IMPRESSION: Moderate right and small left pleural effusions with associated airspace opacities, stable since the prior exam. Dictated by: Dictated on workstation # [id number]
[2021-03-23 22:25] LABS: FREE T4 (FREE THYROXINE) 0.96 NG/DL (0.70-1.48)
[2021-03-23 22:42] LABS: POTASSIUM 4.9 MMOL/L (3.6-5.0)
[2021-03-23] MEDS ORDERED: FUROSEMIDE 40 MG/4 ML INJ (LASIX) IVP ONE (23:15)
[2021-03-23] MEDS ORDERED: ENOXAPARIN 80 MG/0.8 ML (LOVENOX) SYR SC ONE (23:15)
[2021-03-23] MEDS ORDERED: DIGOXIN 0.25 MG/ML (LANOXIN) 2 ML AMP IV SCH (23:45)
[2021-03-24] MEDS ORDERED: 1/2 NS IV SOLUTION 1,000 ML IV ONE (00:57)
[2021-03-24] MEDS ORDERED: ONDANSETRON 4 MG/2 ML (SDV) Z0FRAN IV PRN (01:30)
[2021-03-24] MEDS: 1/2 NS IV SOLUTION 1,000 ML IV SCH ×3 (01:30→18:11)
[2021-03-24 02:17] LABS: BASOPHILS % (AUTO) 0 % (0-10); EOSINOPHILS % (AUTO) 0 % (0-10); HEMATOCRIT 41 % (35-52); HEMOGLOBIN 11.9 g/dL (11.5-16.0); LYMPHOCYTES # (AUTO) 0.8 10^3/uL (1.0-4.0); LYMPHOCYTES % (AUTO) 8 % (12-44); MEAN CORPUSCULAR HEMOGLOBIN 32 pg (25-34); MEAN CORPUSCULAR HGB CONC 29 g/dL (32-36); MEAN CORPUSCULAR VOLUME 109 fL (80-99); MEAN PLATELET VOLUME 9.8 fL (9.0-12.2); MONOCYTES # (AUTO) 1.1 10^3/uL (0.0-1.0); MONOCYTES % (AUTO) 11 % (0-12); NEUTROPHILS # (AUTO) 7.7 10^3/uL (1.8-7.8); NEUTROPHILS % (AUTO) 79 % (42-75); PLATELET COUNT 174 10^3/uL (130-400); WHITE BLOOD COUNT 9.8 10^3/uL (4.3-11.0)
[2021-03-24 02:20] LABS: POTASSIUM 5.2 MMOL/L (3.6-5.0)
[2021-03-24 02:21] LABS: CALCIUM 8.4 MG/DL (8.5-10.1)
[2021-03-24 02:25] LABS: PHOSPHORUS 3.9 MG/DL (2.3-4.7)
[2021-03-24 02:26] LABS: CREATININE SERUM 1.33 MG/DL (0.60-1.30)
[2021-03-24 02:28] LABS: MAGNESIUM 2.2 MG/DL (1.6-2.4)
[2021-03-24] MEDS ORDERED: FUROSEMIDE 40 MG/4 ML INJ (LASIX) IV ONE (07:00)
--- NOTE | 2021-03-24 07:44 | Diagnostic Imaging Report ---
Portable erect AP chest at 3:20. Indication: Pneumonia, respiratory distress The heart size is stable when compared to the prior exam of 03/23/2021. As on the previous study the right mid lung and right lung base are obscured by atelectasis/infiltrate and fluid. There is also a persistent area of increased density in the left lung base. Overall, there has been no significant change since the prior exam. No new abnormality has developed. Impression: Stable chest. There has been no adverse change since the prior study. Dictated by: Dictated on workstation # [id number]
[2021-03-24] MEDS ORDERED: ASPIRIN E.C. 81 MG (ECOTRIN) TAB PO SCH (09:00)
[2021-03-24] MEDS: CEFEPIME 1,000 MG/SWFI 10 ML IV PUSH IV SCH ×4 (09:25→21:26)
--- NOTE | 2021-03-24 09:41 | Tele-ICU Progress Note ---
Subjective Date Seen by a Provider: Mar 24, 2021 Time Seen by a Provider: 07:30 Subjective/Events-last exam This virtual visit was conducted using real time audio/video. Thank you for asking us to see this patient for AMS, urosepsis, chronic afib, NSTEMI with elevated troponins. HPC: Recent events: none overnight since admission. ROS: limited by patient's clinical condition. PE: Cachectic. VSS controlled afib. Confused. 94 % O2 sat on 2 L NC. HEENT: No obvious masses, adenopathy or JVD. Chest: clear to auscultation. CV: Irreg HR S1 S2 No murmur or added sounds. Abd: Non-tender. Bowel sounds Y. : Unremarkable. Angela Y. PORCELAIN TECHNICIAN/psychiatric: No obvious focal findings. Extremities: No edema. Capillary refill < 3 seconds. Skin: unremarkable. Results: Elevated BUN, CR, Lactate and K but all are decreasing. A/P: urosepsis: cont Cefipime. Available chart/ vitals / labs /images reviewed. Video assessment done using teleICU camera, rest of exam as per RN. Respiratory: Continue present management with O2 NC Monitor for increasing oxygenation needs. Critical Care: critically ill patient but rapidly improving. Could transfer to floor if Hospitalist agrees. Discussed with RN Otoniel. Asked RN to reach out to eICU if any questions or concerns later. Time spent with patient/coordination of care with other health professionals (mins) 27: Sepsis Event Evaluation Height, Weight, BMI Height: 5'5.00" Weight: 107lbs. 1.0oz. 48.766840lp; 24.00 BMI Method:Stated Focused Exam Lactate Level 03/23/21 23:27: Lactic Acid Level 2.64*H 03/24/21 01:54: Lactic Acid Level 2.20*H 03/24/21 05:30: Lactic Acid Level 1.41 Exam Exam Patient acknowledged, consented, and participated in this virtual visit which was conducted using real time audio/video Vital Signs Date Time Temp Pulse Resp B/P (MAP) Pulse Ox O2 Delivery O2 Flow Rate FiO2 03/24/21 09:00 102 17 134/91 (105) 94 Nasal Cannula 2.00 03/24/21 08:00 122 19 122/82 (95) 92 Nasal Cannula 2.00 03/24/21 07:56 36.9 03/24/21 07:00 108 03/24/21 07:00 97 16 132/81 (90) 96 Nasal Cannula 2.00 03/24/21 06:00 98 24 117/69 (85) 94 Nasal Cannula 2.00 03/24/21 05:00 93 22 149/79 (102) 94 Nasal Cannula 2.00 03/24/21 04:00 97 30 135/96 (109) 89 Nasal Cannula 2.00 03/24/21 04:00 96 Nasal Cannula 2.00 03/24/21 03:32 Nasal Cannula 2.00 03/24/21 02:30 94 39 133/101 (112) Nasal Cannula 2.00 03/24/21 02:00 90 13 145/82 (103) Nasal Cannula 2.00 03/24/21 01:30 92 27 89/68 (75) 95 Nasal Cannula 2.00 03/24/21 01:15 96 33 139/72 (94) 94 Nasal Cannula 2.00 03/24/21 01:05 97 03/24/21 01:00 97 35 130/110 (117) 94 Nasal Cannula 2.00 03/24/21 00:45 89 35 146/98 (114) Nasal Cannula 2.00 03/24/21 00:45 36.6 03/24/21 00:40 35.6 91 15 124/87 100 Room Air 03/23/21 20:10 35.9 130 13 100 Nasal Cannula 2.00 03/23/21 20:10 96 Nasal Cannula 2.00 I & O 03/24/21 07:00 Intake Total 1010 ml Output Total 700 ml Balance 310 ml Height & Weight Height: 5'5.00" Weight: 107lbs. 1.0oz. 48.593972sg; 24.00 BMI Method:Stated General Appearance: Chronically ill Capillary Refill: Less Than 3 Seconds Peripheral Pulses: 1+ Dorsalis Pedis (R), 1+ Left Dors-Pedis (L) Results Lab Laboratory Tests 03/23/21 20:14 03/23/21 22:28 03/24/21 01:54 Assessment/Plan Assessment/Plan See free text Critical Care: Critically Ill Patient Time spent on discussion(mins): 0 POWER MEEKS MD Mar 24, 2021 09:41
[2021-03-24] MEDS ORDERED: dilTIAZem120 MG (CARDIZEM CD) CAP PO SCH (12:15)
--- NOTE | 2021-03-24 14:03 | History & Physical-Hospitalist ---
MADALYN LADD 03/24/21 1403: History of Present Illness HPI/Chief Complaint Nimisha Hogan is an 89y/o F who presents with acute coronary syndrome. Pt was discharged on 03/20 from this hospital after being treated for a HAP. Went home on Omnicef. She was unsure of exactly what had happened yesterday but knows that she is currently in the hospital. She was able to state that yesterday she began feeling confused and weak but that was all that she remembered. Today she reports feeling fatigued. Pt's code status was discussed with her. She said that she did not want to be resuscitated if it came to that and to "let me go be with [facility]". Pt was A&Ox3 at this time. Change in code status discussed w/ patient's son and he was understanding of the pt's decision. Source: patient Exam Limitations: no limitations Date Seen 03/24/21 Time Seen by a Provider: 09:21 Attending Physician Zackery Delacruz MD PCP No,Local Physician Referring Physician Date of Admission Mar 23, 2021 at 22:40 Home Medications & Allergies Home Medications Reviewed patient Home Medication Reconciliation performed by pharmacy medication reconciliations loader technician and/or nursing. Patients Allergies have been reviewed. 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 Chronic Constipation Glaucoma Skin Did You Recieve Any Treatments: Yes What Type of Treatment Did You: Surgical Intervention Recent Skin Changes Blood Disorders: No Adverse Reaction/Blood Tranf: No Family Medical History Hypertension 19 FATHER No Pertinent Family Hx Review of Systems Constitutional: No chills, No fever Respiratory: No cough, No short of breath Cardiovascular: No chest pain, No palpitations Gastrointestinal: nausea, vomiting Psychiatric/Neurological: Denies Headache, Denies Numbness, Denies Tingling Physical Exam Physical Exam Vital Signs Vital Signs - First Documented 03/23/21 03/24/21 20:10 00:40 Temp 35.9 Pulse 130 Resp 13 B/P (MAP) 124/87 Pulse Ox 96 O2 Delivery Nasal Cannula O2 Flow Rate 2.00 Capillary Refill : Less Than 3 Seconds Height, Weight, BMI Height: 5'5.00" Weight: 107lbs. 1.0oz. 48.758957np; 24.00 BMI Method:Stated General Appearance: Chronically ill, Thin Neck: No Carotid Bruit; JVD Respiratory: Lungs Clear, Normal Breath Sounds Cardiovascular: JVD, Tachycardia Gastrointestinal: Guarding, Tenderness (LUQ+LLQ) Extremity: Pedal Edema (2/4 pitting edema) Neurologic/Psychiatric: Alert, Oriented x3 Skin: Warm/Dry, Other (venous stasis dermatitis distal LE b/l) Results Results/Procedures Labs Laboratory Tests 03/23/21 20:14 03/23/21 22:28 03/24/21 01:54 Patient resulted labs reviewed. Assessment/Plan Assessment and Plan NSTEMI Acute on chronic CHF LENA on CKD Hyperkalemia Started on Lovenox, Lasix, Diltiazem Started IV NS Aspirin not given today due to pt's inability to swallow it Consulted w/ cardiology Echo done Continue with current monitoring HAP pneumonia possible UTI Continue w/ cefepine ZACKERY DELACRUZ MD 03/24/211818: Past Hmvqoue-Nbleoy-Dlpntj Hx Family Medical History Hypertension 19 FATHER Assessment/Plan Admission Diagnosis NSTEMI Admission Status: Inpatient Order (span 2 midnights) Reason for Inpatient Admission: NSTEMI and HFrEF requiring IV medications and monitoring Assessment and Plan NSTEMI CAD ASA Lovenox Cardiology consulted, appreciate assistance Planning for medical management 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 Ischemic cardiomyopathy Last EF 15-20% Refused AICD placement Repeat echo with EF 10-15% and grade II diastolic dysfunction Started on IV Lasix LENA on CKD3a Likely cardiorenal IV Lasix ordered AFib with RVR Given digoxin Begin oral diltiazem Refuses chronic anticoagulation Goals of care discussion Poor prognosis Advanced age Discussed poor prognosis, discussed code status, patient stated "Let me go be with [facility], I'm ready" when asked if she would like compressions and resuscitation Changed to DNR Discussed current status and code status change with son, Charles Consult palliative care, would benefit from discharge with hospice HCAP Possible UTI Recently discharged on Omnicef Transitioned back to Cefepime UA mildy concerning for UTI Urine culture pending Critical Care Critically Ill Patient Diagnosis/Problems Diagnosis/Problems (1) NSTEMI (non-ST elevation myocardial infarction) Status: Acute (2) Acute on chronic heart failure with reduced ejection fraction and diastolic dysfunction Status: Acute (3) Ischemic cardiomyopathy Status: Chronic (4) CAD (coronary artery disease) Status: Chronic (5) PAF (paroxysmal atrial fibrillation) Status: Chronic (6) Advanced age Status: Chronic (7) Poor prognosis Status: Acute (8) Acute kidney injury superimposed on chronic kidney disease (9) Stage 3a chronic kidney disease Supervisory-Addendum Brief Verification & Attestation Participated in pt care: history, MDM, physical Personally performed: exam, history, MDM, supervision of care Care discussed with: Medical Student Procedures: n/a Results interpretation: Verified all documentation A medical student performed and documented this service in my presence. I reviewed and verified all information documented by the medical student and made modifications to such information, when appropriate. I personally performed the physical exam and medical decision making. MADALYN LADD Mar 24, 2021 14:03 ZACKERY DELACRUZ MD Mar 24, 2021 18:19
--- NOTE | 2021-03-24 15:04 | Consultation-Cardiology ---
HPI-Cardiology Cardiology Consultation: Date of Consultation 03/24/21 Time Seen by a Provider: 13:30 Date of Admission Attending Physician Zackery Delacruz MD Admitting Physician No,Local Physician Consulting Physician DAWNA FOOTE MD, MA, FACP, FACC, FSCAI, CCDS Physician requesting consult: Dr Delacruz HPI: Chief Complaint: CC: Profound malaise and weakness and exertional shortness of breath HPI 89 yo woman with multiple CV and other comorbidities (see below) admitted to Dr Delacruz's last night after family brought her in for eval for profound weakness and malaise and confusion. Has had multiple hospitalizations in the last 2 or 3 months, including for pneumonia in mid March 2021 and R hip repair after hip f racture from a non-syncopal fall in January 2021. She has not reported cp or palp or syncope. She has intermittently been confused lately. Has chronic, mild, intermittent leg swelling Review of Systems-Cardiology Review of Systems Constitutional: other (Review of system is difficult to obtain from the patient due to somnolence and intermittent confusion. To the extent it could be obtained from her, her family, and from chart review is described above under HPI) JFV-Rmsmed-Zgwmot Hx Patient Social History 2nd Hand Smoke Exposure: No Have you traveled recently?: No Alcohol Use?: No Pt feels they are or have been: No Immunizations Up To Date Tetanus Booster (TDap): Unknown Past Medical History PMH As described under Assessment. Family Medical History Family Medical History: She has previously reported that her brother had an OK at age 59 Family History: Hypertension 19 FATHER Allergies and Home Medications Allergies Coded Allergies: amoxicillin (Unverified Allergy, Unknown, 07/14/18) Home Medications Acetaminophen 500 Mg Tablet, 1,000 MG PO Q6H PRN for PAIN-MILD (1-4), (Reported) Aspirin 81 Mg Tablet.dr, 81 MG PO DAILY, (Reported) Aspirin 81 Mg Tab.chew, 81 MG PO BID, (Reported) Calcium Carbonate 300 Mg Tab.chew, 600 MG PO Q12H PRN for STOMACH UPSET, (Reported) Cefdinir 300 Mg Capsule, 300 MG PO BID Prescribed by: ZACKERY DELACRUZ on 03/21/21 1205 Cholecalciferol (Vitamin D3) 1,250 Mcg Capsule, 1,250 MCG PO WED, (Reported) Cholecalciferol (Vitamin D3) 25 Mcg Capsule, 25 MCG PO DAILY, (Reported) Docusate Sodium 100 Mg Capsule, 100 MG PO DAILY, (Reported) Enalapril Maleate 2.5 Mg Tablet, 2.5 MG PO BID, (Reported) HOLD IF BP LESS THAN 90/60 OR HR LESS THAN 60 Furosemide 20 Mg Tablet, 20 MG PO DAILY, (Reported) TAKING FOR 5 DAYS STARTING 03-19-2021 Magnesium Hydroxide 2,400 Mg/10 Ml Oral.susp, 30 ML PO DAILY PRN for CONSTIPATION-7TH LINE, (Reported) Metoprolol Succinate 25 Mg Tab.er.24h, 25 MG PO DAILY, (Reported) HOLD IF BP LESS THAN 90/60 OR HR LESS THAN 60 Mirtazapine 15 Mg Tab.rapdis, 7.5 MG PO HS Prescribed by: ZACKERY DELACRUZ on 03/21/21 1205 Multivit,Ther Iron,Ca,FA & Min 1 Each Tablet, 1 EACH PO DAILY, (Reported) Potassium Chloride 10 Meq Tablet.er, 10 MEQ PO DAILY, (Reported) TAKING FOR 5 DAYS STARTING ON 03-19-2021 Patient Home Medication List Home Medication List Reviewed: Yes Physical Exam-Cardiology Physical Exam Vital Signs/I&O 03/24/21 03/24/21 03/24/21 03/24/21 03:32 04:00 04:00 05:00 Pulse 97 93 Resp 30 22 B/P (MAP) 135/96 (109) 149/79 (102) Pulse Ox 96 89 94 O2 Delivery Nasal Cannula Nasal Cannula Nasal Cannula Nasal Cannula O2 Flow Rate 2.00 2.00 2.00 2.00 03/24/21 03/24/21 03/24/21 03/24/21 06:00 07:00 07:00 07:56 Temp 36.9 Pulse 98 97 108 Resp 24 16 B/P (MAP) 117/69 (85) 132/81 (90) Pulse Ox 94 96 O2 Delivery Nasal Cannula Nasal Cannula O2 Flow Rate 2.00 2.00 03/24/21 03/24/21 03/24/21 03/24/21 08:00 09:00 10:00 11:00 Pulse 122 102 98 90 Resp 19 17 28 33 B/P (MAP) 122/82 (95) 134/91 (105) 135/85 (102) 122/65 (84) Pulse Ox 92 94 92 93 O2 Delivery Nasal Cannula Nasal Cannula Nasal Cannula Nasal Cannula O2 Flow Rate 2.00 2.00 2.00 2.00 03/24/21 03/24/21 03/24/21 03/24/21 11:56 12:00 13:00 13:00 Temp 37.1 Pulse 101 88 86 Resp 28 24 B/P (MAP) 116/74 (88) 122/82 (95) Pulse Ox 91 94 O2 Delivery Nasal Cannula Nasal Cannula O2 Flow Rate 2.00 2.00 03/24/21 14:00 Pulse 82 Resp 20 B/P (MAP) 98/58 (71) Pulse Ox 93 O2 Delivery Nasal Cannula O2 Flow Rate 2.00 03/24/21 00:00 Intake Total 1010 ml Balance 1010 ml Capillary Refill : Less Than 3 Seconds Constitutional: No AAO x 3; other (weak, thin, appears malnourished) HEENT: PERRL, EOMI, hard of hearing; No xanthelasmas are seen Neck: carotid pulses are 2 + bilaterally Respiratory: No accessory muscle use; other (Diminished air ently at right base and mid-zone, basal fine and coarse crackles) Cardiovascular: irregularly irregular, S1 and S2, systolic murmur (soft NICOLETTE at card base) Gastrointestinal: No tender; soft; No guarding, No rebound; audible bowel sounds Extremities: swelling (mild, bilateral leg edema); No clubbing, No cyanosis Neurologic/Psychiatric: other (somnolent and intermittently confused, moves all limbs equally) Skin: other (areas of mild bruising at sites of blood draws and minor trauma) Data Review Labs Laboratory Tests 03/23/21 20:14: White Blood Count 8.9, Red Blood Count 3.99, Hemoglobin 12.7, Hematocrit 42, Mean Corpuscular Volume 104H, Mean Corpuscular Hemoglobin 32, Mean Corpuscular Hemoglobin Concent 31L, Red Cell Distribution Width 15.9H, Platelet Count 245, Mean Platelet Volume 10.1, Immature Granulocyte % (Auto) 1, Neutrophils (%) (Auto) 80H, Lymphocytes (%) (Auto) 8L, Monocytes (%) (Auto) 10, Eosinophils (%) (Auto) 0, Basophils (%) (Auto) 0, Neutrophils # (Auto) 7.1, Lymphocytes # (Auto) 0.7L, Monocytes # (Auto) 0.9, Eosinophils # (Auto) 0.0, Basophils # (Auto) 0.0, Immature Granulocyte # (Auto) 0.1, Erythrocyte Sedimentation Rate 10, Prothrombin Time 19.3H, INR Comment 1.6H, Activated Partial Thromboplast Time 32, Sodium Level 141, Potassium Level 7.5*H, Chloride Level 108H, Carbon Dioxide Level 20L, Anion Gap 13, Blood Urea Nitrogen 54H, Creatinine 1.52H, Estimat Glomerular Filtration Rate 32, BUN/Creatinine Ratio 36, Glucose Level 133H, Lactic Acid Level 2.99*H, Calcium Level 8.9, Corrected Calcium 9.4, Magnesium Level 2.5H, Total Bilirubin 0.9, Aspartate Amino Transf (AST/SGOT) 60H, Alanine Aminotransferase (ALT/SGPT) 35, Alkaline Phosphatase 154H, Total Creatine Kinase 51, Creatine Kinase MB 3.5, Myoglobin 135.2H, Troponin I 0.617*H, C-Reactive Protein High Sensitivity 6.94H, B-Type Natriuretic Peptide 3456.7H, Total Protein 7.3, Albumin 3.4, Lipase 17, Procalcitonin 0.24H, Free Thyroxine 0.96, TSH Dupo Testing 9.02H, Digoxin Level < 0.30L 03/23/21 20:30: Urine Color YELLOW, Urine Clarity CLOUDY, Urine pH 5.0, Urine Specific [place] >=1.030, Urine Protein 1+H, Urine Glucose (UA) NEGATIVE, Urine Ketones TRACEH, U rine Nitrite NEGATIVE, Urine Bilirubin 2+H, Urine Urobilinogen 1.0, Urine Leuko cyte Esterase NEGATIVE, Urine RBC (Auto) 1+H, Urine RBC 2-5H, Urine WBC 5-10H, Urine Crystals PRESENTH, Urine Amorphous Sediment MOD JENNIFER URATESH, Urine Bacteria TRACE, Urine Casts PRESENT, Urine Hyaline Casts 10-25H, Urine Mucus NEGATIVE, Urine Culture Indicated CULTURE PENDING, Urine Opiates Screen NEGATIVE, Urine Oxycodone Screen NEGATIVE, Urine Methadone Screen NEGATIVE, Urine Propoxyphene Screen NEGATIVE, Urine Barbiturates Screen NEGATIVE, Ur Tricyclic Antidepressants Screen NEGATIVE, Urine Phencyclidine Screen NEGATIVE, Urine Amphetamines Screen NEGATIVE, Urine Methamphetamines Screen NEGATIVE, Urine Benzodiazepines Screen NEGATIVE, Urine Cocaine Screen NEGATIVE, Urine Cannabinoids Screen NEGATIVE 03/23/21 22:28: Potassium Level 4.9, Ammonia 23 03/23/21 23:27: Lactic Acid Level 2.64*H 03/24/21 01:54: White Blood Count 9.8, Red Blood Count 3.73L, Hemoglobin 11.9, Hematocrit 41, Mean Corpuscular Volume 109H, Mean Corpuscular Hemoglobin 32, Mean Corpuscular Hemoglobin Concent 29L, Red Cell Distribution Width 15.9H, Platelet Count 174, Mean Platelet Volume 9.8, Immature Granulocyte % (Auto) 1, Neutrophils (%) (Auto) 79H, Lymphocytes (%) (Auto) 8L, Monocytes (%) (Auto) 11, Eosinophils (%) (Auto) 0, Basophils (%) (Auto) 0, Neutrophils # (Auto) 7.7, Lymphocytes # (Auto) 0.8L, Monocytes # (Auto) 1.1H, Eosinophils # (Auto) 0.0, Basophils # (Auto) 0.0, Immature Granulocyte # (Auto) 0.1, Sodium Level 143, Potassium Level 5.2H, Chloride Level 110H, Carbon Dioxide Level 20L, Anion Gap 13, Blood Urea Nitrogen 53H, Creatinine 1.33H, Estimat Glomerular Filtration Rate 38, BUN/Creatinine Ratio 40, Glucose Level 117H, Lactic Acid Level 2.20*H, Calcium Level 8.4L, Phosphorus Level 3.9, Magnesium Level 2.2, Troponin I 0.460*H, Triglycerides Level 81, Cholesterol Level 151, LDL Cholesterol Direct 103, VLDL Cholesterol 16, HDL Cholesterol 32L 03/24/21 05:30: Lactic Acid Level 1.41 03/24/21 11:41: Glucometer 99 Laboratory Tests 03/23/21 20:14 03/23/21 22:28 03/24/21 01:54 A/P-Cardiology Assessment/Admission Diagnosis Ac on chronic 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 cardiomyopathy - Last card cath of 09/13/19: mod CD, patent stent in mid LAD (Promus Premier 3 x 12, placed in 2014), marked impairment of LV systolic function with LVEF 20%, global hypokinesis, mild elev of LVEDP - Echo of 03/24/23: LVEF 10-15%, grade 2 diastolic dysfunction, mild MR, mild AI, R pleural effusion, PSP 40-45 mmHg Mild troponin elevation due to type 2 OK due to decompensated CHF Recent (mid March 2021) pneumonia Recent (January 2021) R hip repair after hip fracture from a non-syncopal fall Low body mass and weakness and cachetic appearance (worsening over 2019 and 2020) Chronic, bilateral leg swelling and stasis dermatitis PAD - Peripheral angio of 07/10/17: ectatic abdominal aorta, aorto-iliac calcification, mod dz of renal arteries, diffuse mod disease of both sup fems, 90% ostial and prox stenosis of the L sup fem, single vessel (ant tibial) run off in both legs with 90% ostial stenoses of both ant tibs. Peripheral PCI on 07/10/17: balloon angioplasty of ostial L ant tib that reduced 90% ostial stenosis to less than 30% residual, balloon angioplasty and stenting (Absolute Pro 7 x 80 stent, dilated to 5 mm wilder) to the L prox sup fem that reduced stenosis form 90% to 0% residual - Seg pressures of 07/08/17 showed mild to mod PAD of the R leg (WALTER 0.85 on the R and TBI 0.74 on the R) and moderate to mod severe PAD of the L leg (WALTER 0.62 on the L and TBI 0.38 on the L); repeat seg pressures of 07/15/17 (post L-sided intervention) much improved (R WALTER 1.01, R TBI, 0.81; L WALTER 1.06, L TBI 0.82) PAF with intermittent RVR - She refuses any oral anticoag (has refused on multiple occasions) Chronic RBBB 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 u/s of 02/15/16 H/o noncompliance with multiple medications and medical instructions Discussion and Recomendations * Complex management due to multiple CV and other comorbidities and patient's noncompliance with meds and medical instructions * Treat CHF with diuretics * Dilt for rate control * Check dig. If level less than one after recent use of dig, then continue dig in a low dose * Not suitable for beta-stella or NICHOLE-inhib or ARB due to low bp * I had a long and detailed discussion of her CV issues and seemingly poor prognosis (progressively downhill course over the last year and h/o marked non-compliance with meds) * I discussed her case with Dr Delacruz on the phone DAWNA FOOTE MD FACP [facility] CCDS Mar 24, 2021 15:04
[2021-03-24] MEDS ORDERED: FUROSEMIDE 40 MG/4 ML INJ (LASIX) IVP ONE ×2 (15:15)
[2021-03-24] MEDS ORDERED: ASPIRIN 81 MG CHEW (CHILDREN'S ASA) PO ONE (15:30)
[2021-03-24] MEDS: fentaNYL INJ 100 MCG/2 ML AMP IV PRN (17:31)
[2021-03-24 18:50] VITALS: BP 114/55
[2021-03-24 19:36] VITALS: BP 113/62
[2021-03-24] MEDS: ENOXAPARIN 60 MG/0.6 ML (LOVENOX) SYR SC SCH (21:27)
[2021-03-24 23:42] VITALS: BP 147/79
[2021-03-25] MEDS: fentaNYL INJ 100 MCG/2 ML AMP IV PRN ×3 (00:56→20:24)
[2021-03-25] MEDS: 1/2 NS IV SOLUTION 1,000 ML IV SCH ×2 (02:59→14:13)
[2021-03-25 04:12] VITALS: BP 120/52
[2021-03-25 05:50] LABS: BASOPHILS % (AUTO) 0 % (0-10); EOSINOPHILS % (AUTO) 0 % (0-10); HEMATOCRIT 40 % (35-52); HEMOGLOBIN 11.5 g/dL (11.5-16.0); LYMPHOCYTES # (AUTO) 0.7 10^3/uL (1.0-4.0); LYMPHOCYTES % (AUTO) 7 % (12-44); MEAN CORPUSCULAR HEMOGLOBIN 32 pg (25-34); MEAN CORPUSCULAR HGB CONC 29 g/dL (32-36); MEAN CORPUSCULAR VOLUME 109 fL (80-99); MEAN PLATELET VOLUME 9.8 fL (9.0-12.2); MONOCYTES # (AUTO) 0.7 10^3/uL (0.0-1.0); MONOCYTES % (AUTO) 7 % (0-12); NEUTROPHILS # (AUTO) 7.9 10^3/uL (1.8-7.8); NEUTROPHILS % (AUTO) 83 % (42-75); PLATELET COUNT 190 10^3/uL (130-400); WHITE BLOOD COUNT 9.5 10^3/uL (4.3-11.0)
[2021-03-25 06:00] LABS: POTASSIUM 4.3 MMOL/L (3.6-5.0)
[2021-03-25 06:01] LABS: CALCIUM 7.9 MG/DL (8.5-10.1)
[2021-03-25 06:05] LABS: PHOSPHORUS 4.6 MG/DL (2.3-4.7)
[2021-03-25 06:06] LABS: CREATININE SERUM 1.23 MG/DL (0.60-1.30)
[2021-03-25 06:08] LABS: MAGNESIUM 1.9 MG/DL (1.6-2.4)
[2021-03-25] MEDS: FUROSEMIDE 40 MG (LASIX) TAB PO SCH (07:12)
[2021-03-25 08:00] VITALS: BP 115/61
[2021-03-25] MEDS: CEFEPIME 1,000 MG/SWFI 10 ML IV PUSH IV SCH ×4 (09:03→20:25)
[2021-03-25] MEDS: ASPIRIN 81 MG CHEW (CHILDREN'S ASA) PO SCH (09:10)
--- NOTE | 2021-03-25 09:32 | Progress Note - Cardiology ---
Cardiology SOAP Progress Note Subjective: Somnolent. Answers in monosyllables. Does not report symptoms Objective: I&O/Vital Signs 03/24/21 03/25/21 03/25/21 03/25/21 23:42 03:06 04:12 08:00 Temp 35.6 35.4 35.8 Pulse 96 88 93 Resp 19 19 20 B/P (MAP) 147/79 (101) 120/52 (74) 115/61 (79) Pulse Ox 98 100 97 O2 Delivery Nasal Cannula Nasal Cannula Nasal Cannula Nasal Cannula O2 Flow Rate 2.00 2.00 2.00 2.00 03/25/21 00:00 Intake Total 0 ml Output Total 1350 ml Balance -1350 ml Weight (Pounds): 107 Weight (Ounces): 1.0 Weight (Calculated Kilograms): [id number] Constitutional: No AAO x 3; other (weak, thin, appears malnourished, somnolent, appears confused) Respiratory: No accessory muscle use; other (Diminished air ently at right base and mid-zone, basal fine and coarse crackles) Cardiovascular: irregularly irregular, S1 and S2, systolic murmur (soft NICOLETTE at card base) Gastrointestional: No tender; soft; No guarding, No rebound; audible bowel sounds Extremities: swelling (mild, bilateral leg edema); No clubbing, No cyanosis Neurologic/Psychiatric: other (somnolent and intermittently confused, moves all limbs equally) Skin: other (areas of mild bruising at sites of blood draws and minor trauma) Results/Procedures: Labs Laboratory Tests 03/24/21 11:41: Glucometer 99 03/25/21 00:17: Glucometer 73 03/25/21 05:35: White Blood Count 9.5, Red Blood Count 3.63L, Hemoglobin 11.5, Hematocrit 40, Mean Corpuscular Volume 109H, Mean Corpuscular Hemoglobin 32, Mean Corpuscular Hemoglobin Concent 29L, Red Cell Distribution Width 15.4H, Platelet Count 190, Mean Platelet Volume 9.8, Immature Granulocyte % (Auto) 3, Neutrophils (%) (Auto) 83H, Lymphocytes (%) (Auto) 7L, Monocytes (%) (Auto) 7, Eosinophils (%) (Auto) 0, Basophils (%) (Auto) 0, Neutrophils # (Auto) 7.9H, Lymphocytes # (Auto) 0.7L, Monocytes # (Auto) 0.7, Eosinophils # (Auto) 0.0, Basophils # (Auto) 0.0, Immature Granulocyte # (Auto) 0.3H, Sodium Level 140, Potassium Level 4.3, Chloride Level 106, Carbon Dioxide Level 23, Anion Gap 11, Blood Urea Nitrogen 53H, Creatinine 1.23, Estimat Glomerular Filtration Rate 41, BUN/C reatinine Ratio 43, Glucose Level 76, Calcium Level 7.9L, Phosphorus Level 4.6, Magnesium Level 1.9, Digoxin Level 1.37 Microbiology 03/24/21 MRSA Screen - Final, Complete MRSA not isolated 03/23/21 Blood Culture - Preliminary, Resulted No growth Laboratory Tests 03/23/21 20:14 03/23/21 22:28 03/24/21 01:54 03/25/21 05:35 A/P: Assessment: Ac on chronic 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 cardiomyopathy - Last card cath of 09/13/19: mod CD, patent stent in mid LAD (Promus Premier 3 x 12, placed in 2014), marked impairment of LV systolic function with LVEF 20%, global hypokinesis, mild elev of LVEDP - Echo of 03/24/23: LVEF 10-15%, grade 2 diastolic dysfunction, mild MR, mild AI, R pleural effusion, PSP 40-45 mmHg Mild troponin elevation due to type 2 SD due to decompensated CHF Recent (mid March 2021) pneumonia Recent (January 2021) R hip repair after hip fracture from a non-syncopal fall Low body mass and weakness and cachetic appearance (worsening over 2019 and 2020) Chronic, bilateral leg swelling and stasis dermatitis PAD - Peripheral angio of 07/10/17: ectatic abdominal aorta, aorto-iliac calcification, mod dz of renal arteries, diffuse mod disease of both sup fems, 90% ostial and prox stenosis of the L sup fem, single vessel (ant tibial) run off in both legs with 90% ostial stenoses of both ant tibs. Peripheral PCI on 07/10/17: balloon angioplasty of ostial L ant tib that reduced 90% ostial stenosis to less than 30% residual, balloon angioplasty and stenting (Absolute Pro 7 x 80 stent, dilated to 5 mm wilder) to the L prox sup fem that reduced stenosis form 90% to 0% residual - Seg pressures of 07/08/17 showed mild to mod PAD of the R leg (WALTER 0.85 on the R and TBI 0.74 on the R) and moderate to mod severe PAD of the L leg (WALTER 0.62 on the L and TBI 0.38 on the L); repeat seg pressures of 07/15/17 (post L-sided intervention) much improved (R WALTER 1.01, R TBI, 0.81; L WALTER 1.06, L TBI 0.82) PAF with intermittent RVR - She refuses any oral anticoag (has refused on multiple occasions) Chronic RBBB 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
[2021-03-25 12:00] VITALS: BP 137/61
--- NOTE | 2021-03-25 12:52 | Progress Note - Hospitalist ---
Subjective HPI/CC On Admission Date Seen by Provider: Mar 25, 2021 Time Seen by Provider: 10:25 Nimisha Hogan is an 89y/o F who presents with acute coronary syndrome. Pt was discharged on 03/20 from this hospital after being treated for a HAP. Went home on Omnicef. She was unsure of exactly what had happened yesterday but knows that she is currently in the hospital. She was able to state that yesterday she began feeling confused and weak but that was all that she remembered. Today she reports feeling fatigued. Pt's code status was discussed with her. She said that she did not want to be resuscitated if it came to that and to "let me go be with [facility]". Pt was A&Ox3 at this time. Change in code status discussed w/ patient's son and he was understanding of the pt's decision. Subjective/Events-last exam She is awake and alert, but quiet. She is oriented. She denies any pain. She denies any shortness of breath. Focused Exam Lactate Level 03/23/21 23:27: Lactic Acid Level 2.64*H 03/24/21 01:54: Lactic Acid Level 2.20*H 03/24/21 05:30: Lactic Acid Level 1.41 Objective Exam Vital Signs Vital Signs Date Time Temp Pulse Resp B/P (MAP) Pulse Ox O2 Delivery O2 Flow Rate FiO2 03/25/21 08:00 97 Nasal Cannula 2.00 03/25/21 08:00 35.8 93 20 115/61 (79) Capillary Refill : Less Than 3 Seconds General Appearance: Chronically ill, Cachetic Respiratory: Lungs Clear, No Respiratory Distress Cardiovascular: Regular Rate, Rhythm, No Murmur Gastrointestinal: Normal Bowel Sounds, Non Tender, Soft Extremity: Normal Inspection, Non Tender, No Pedal Edema Neurologic/Psychiatric: Alert, Oriented x3, No Motor/Sensory Deficits, Normal Mood/Affect Skin: Normal Color, Warm/Dry Results/Procedures Lab Laboratory Tests 03/25/21 05:35 Patient resulted labs reviewed. 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 Ischemic cardiomyopathy Poor prognosis Advanced age Goals of care discussion Cardiology consulted, appreciate assistance Planning for medical management Last EF 15-20% Refused AICD placement Repeat echo with EF 10-15% and grade II diastolic dysfunction Continue Lasix Recommended hospice, patient and family in agreement, son Charles not present at time of discussion Palliative care consulted, appreciate assistance LENA on CKD3a Likely cardiorenal IV Lasix ordered AFib with RVR Continue diltiazem Refuses chronic anticoagulation HCAP Continue Cefepime Diagnosis/Problems Diagnosis/Problems (1) NSTEMI (non-ST elevation myocardial infarction) Status: Acute (2) Acute on chronic heart failure with reduced ejection fraction and diastolic dysfunction Status: Acute (3) Ischemic cardiomyopathy Status: Chronic (4) CAD (coronary artery disease) Status: Chronic (5) PAF (paroxysmal atrial fibrillation) Status: Chronic (6) Advanced age Status: Chronic (7) Poor prognosis Status: Acute (8) Acute kidney injury superimposed on chronic kidney disease Status: Acute (9) Stage 3a chronic kidney disease Status: Chronic ZACKERY DELACRUZ MD Mar 25, 2021 12:52
[2021-03-25] MEDS ORDERED: DIGO125T3 PO (13:29)
[2021-03-25] MEDS ORDERED: CEFD300C3 PO (13:29)
[2021-03-25] MEDS ORDERED: DILT180C84 PO (13:29)
[2021-03-25] MEDS ORDERED: SPIR25TA5 PO (13:29)
[2021-03-25] MEDS ORDERED: MIRT-68 PO (13:29)
[2021-03-25] MEDS ORDERED: MULT-166 PO (13:30)
[2021-03-25] MEDS ORDERED: MOM10U PO (13:32)
[2021-03-25 16:00] VITALS: BP 136/79
[2021-03-25 20:00] VITALS: BP 171/62
[2021-03-25] MEDS: ENOXAPARIN 60 MG/0.6 ML (LOVENOX) SYR SC SCH (20:25)
[2021-03-26] MEDS: 1/2 NS IV SOLUTION 1,000 ML IV SCH (00:09)
[2021-03-26 00:10] VITALS: BP 110/72
[2021-03-26 04:20] VITALS: BP 146/72
[2021-03-26 06:11] LABS: BASOPHILS % (AUTO) 0 % (0-10); EOSINOPHILS # (AUTO) 0.1 10^3/uL (0.0-0.3); EOSINOPHILS % (AUTO) 1 % (0-10); HEMATOCRIT 42 % (35-52); HEMOGLOBIN 12.4 g/dL (11.5-16.0); LYMPHOCYTES # (AUTO) 0.7 10^3/uL (1.0-4.0); LYMPHOCYTES % (AUTO) 9 % (12-44); MEAN CORPUSCULAR HEMOGLOBIN 32 pg (25-34); MEAN CORPUSCULAR HGB CONC 30 g/dL (32-36); MEAN CORPUSCULAR VOLUME 107 fL (80-99); MEAN PLATELET VOLUME 9.9 fL (9.0-12.2); MONOCYTES # (AUTO) 0.7 10^3/uL (0.0-1.0); MONOCYTES % (AUTO) 8 % (0-12); NEUTROPHILS # (AUTO) 6.4 10^3/uL (1.8-7.8); NEUTROPHILS % (AUTO) 80 % (42-75); PLATELET COUNT 229 10^3/uL (130-400)
[2021-03-26 06:25] LABS: POTASSIUM 3.9 MMOL/L (3.6-5.0)
[2021-03-26 06:26] LABS: CALCIUM 8.1 MG/DL (8.5-10.1)
[2021-03-26 06:30] LABS: CREATININE SERUM 1.09 MG/DL (0.60-1.30); PHOSPHORUS 3.7 MG/DL (2.3-4.7)
[2021-03-26 06:32] LABS: MAGNESIUM 1.8 MG/DL (1.6-2.4)
[2021-03-26] MEDS: FUROSEMIDE 40 MG (LASIX) TAB PO SCH (06:42)
[2021-03-26 07:23] VITALS: BP 134/79
[2021-03-26] MEDS: CEFEPIME 1,000 MG/SWFI 10 ML IV PUSH IV SCH ×2 (08:09)
[2021-03-26] MEDS: ASPIRIN 81 MG CHEW (CHILDREN'S ASA) PO SCH (08:09)
--- NOTE | 2021-03-26 08:55 | Progress Note - Cardiology ---
Cardiology SOAP Progress Note Subjective: Sitting up in bed eating morning meal Denies c/o pain Confused, slow to answer simple questions Objective: I&O/Vital Signs 03/27/21 03/27/21 03/27/21 03/27/21 00:25 04:00 08:00 08:58 Temp 37.0 35.8 36.4 Pulse 92 57 68 Resp 18 18 14 B/P (MAP) 122/67 (85) 116/54 (74) 130/60 (83) Pulse Ox 96 96 90 98 O2 Delivery Nasal Cannula Nasal Cannula Nasal Cannula Nasal Cannula O2 Flow Rate 3.50 3.50 3.50 3.50 03/27/21 00:00 Intake Total 450 ml Output Total 1400 ml Balance -950 ml Weight (Pounds): 107 Weight (Ounces): 1.0 Weight (Calculated Kilograms): 48.508627 Constitutional: No AAO x 3; other (weak, thin, appears malnourished, somnolent, appears confused) Respiratory: No accessory muscle use; other (Diminished air ently at right base and mid-zone, basal fine and coarse crackles) Cardiovascular: irregularly irregular, S1 and S2, systolic murmur (soft NICOLETTE at card base) Gastrointestional: No tender; soft; No guarding, No rebound; audible bowel sounds Extremities: swelling (mild, bilateral leg edema); No clubbing, No cyanosis Neurologic/Psychiatric: other (somnolent and intermittently confused, moves all limbs equally) Skin: other (areas of mild bruising at sites of blood draws and minor trauma) Results/Procedures: Labs Laboratory Tests 03/27/21 05:05: White Blood Count 7.5, Red Blood Count 3.56L, Hemoglobin 11.4L, Hematocrit 37, Mean Corpuscular Volume 105H, Mean Corpuscular Hemoglobin 32, Mean Corpuscular Hemoglobin Concent 31L, Red Cell Distribution Width 14.9H, Platelet Count 210, Mean Platelet Volume 9.4, Immature Granulocyte % (Auto) 2, Neutrophils (%) (Auto) 80H, Lymphocytes (%) (Auto) 8L, Monocytes (%) (Auto) 10, Eosinophils (%) (Auto) 1, Basophils (%) (Auto) 0, Neutrophils # (Auto) 6.1, Lymphocytes # (Auto) 0.6L, Monocytes # (Auto) 0.7, Eosinophils # (Auto) 0.0, Basophils # (Auto) 0.0, Immature Granulocyte # (Auto) 0.1, Sodium Level 137, Potassium Level 3.8, Chloride Level 100, Carbon Dioxide Level 26, Anion Gap 11, Blood Urea Nitrogen 46H, Creatinine 1.12, Estimat Glomerular Filtration Rate 46, BUN/Creatinine Ratio 41, Glucose Level 108H, Calcium Level 7.9L, Phosphorus Level 3.3, Magnesium Level 1.7, Digoxin Level 0.83 Microbiology 03/24/21 MRSA Screen - Final, Complete MRSA not isolated 03/23/21 Blood Culture - Preliminary, Resulted No growth 03/23/21 Urine Culture - Final, Complete NO GROWTH A/P: Assessment: Ac on chronic 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 cardiomyopathy - Last card cath of 09/13/19: mod CD, patent stent in mid LAD (Promus Premier 3 x 12, placed in 2014), marked impairment of LV systolic function with LVEF 20%, global hypokinesis, mild elev of LVEDP - Echo of 03/24/23: LVEF 10-15%, grade 2 diastolic dysfunction, mild MR, mild AI, R pleural effusion, PSP 40-45 mmHg Mild troponin elevation due to type 2 [place] due to decompensated CHF Recent (mid March 2021) pneumonia Recent (January 2021) R hip repair after hip fracture from a non-syncopal fall Low body mass and weakness and cachetic appearance (worsening over 2019 and 2020) Chronic, bilateral leg swelling and stasis dermatitis PAD - Peripheral angio of 07/10/17: ectatic abdominal aorta, aorto-iliac calcification, mod dz of renal arteries, diffuse mod disease of both sup fems, 90% ostial and prox stenosis of the L sup fem, single vessel (ant tibial) run off in both legs with 90% ostial stenoses of both ant tibs. Peripheral PCI on 07/10/17: balloon angioplasty of ostial L ant tib that reduced 90% ostial stenosis to less than 30% residual, balloon angioplasty and stenting (Absolute Pro 7 x 80 stent, dilated to 5 mm wilder) to the L prox sup fem that reduced stenosis form 90% to 0% residual - Seg pressures of 07/08/17 showed mild to mod PAD of the R leg (WALTER 0.85 on the R and TBI 0.74 on the R) and moderate to mod severe PAD of the L leg (WALTER 0.62 on the L and TBI 0.38 on the L); repeat seg pressures of 07/15/17 (post L-sided intervention) much improved (R WALTER 1.01, R TBI, 0.81; L WALTER 1.06, L TBI 0.82) PAF with intermittent RVR - She refuses any oral anticoag (has refused on multiple occasions) Chronic RBBB 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 u/s of 02/15/16 H/o noncompliance with multiple medications and medical instructions Plan: * Complex management due to multiple CV and other comorbidities and patient's noncompliance with meds and medical instructions * Treat CHF with diuretics * Not a good candidate for long acting - Dilt because she is unable to swallow capsule, chewed the capsule this morning - will change to short acting medications that can be crushed in order for her to swallow * Hold dig because level 1.37 - repeat Dig level in the morning * BP has improved * Previously not suitable for beta-stella or NICHOLE-inhib or ARB due to low bp * Monitor labs * Palliative care visit yesterday Clinical Quality Measures Type of Care: Type of Care: Hospice Care (Home) ELEN LOZANO Mar 26, 2021 08:54
[2021-03-26 11:43] VITALS: BP 156/60
--- NOTE | 2021-03-26 13:06 | Progress Note - Hospitalist ---
Subjective HPI/CC On Admission Date Seen by Provider: Mar 26, 2021 Time Seen by Provider: 13:00 Nimisha Hogan is an 89y/o F who presents with acute coronary syndrome. Pt was discharged on 03/20 from this hospital after being treated for a HAP. Went home on Omnicef. She was unsure of exactly what had happened yesterday but knows that she is currently in the hospital. She was able to state that yesterday she began feeling confused and weak but that was all that she remembered. Today she reports feeling fatigued. Pt's code status was discussed with her. She said that she did not want to be resuscitated if it came to that and to "let me go be with [facility]". Pt was A&Ox3 at this time. Change in code status discussed w/ patient's son and he was understanding of the pt's decision. Subjective/Events-last exam pt awake and talking this morning though mumbles and didn't answer all my questions. Had no complaints and denied pain. No family at beside. Focused Exam Lactate Level 03/23/21 23:27: Lactic Acid Level 2.64*H 03/24/21 01:54: Lactic Acid Level 2.20*H 03/24/21 05:30: Lactic Acid Level 1.41 Objective Exam Vital Signs Vital Signs Date Time Temp Pulse Resp B/P (MAP) Pulse Ox O2 Delivery O2 Flow Rate FiO2 03/26/21 11:43 35.0 89 16 156/60 (92) 93 Nasal Cannula 2.00 Capillary Refill : Less Than 3 Seconds General Appearance: No Apparent Distress, Chronically ill, Thin Cardiovascular: Systolic Murmur, Irregularly Irregular Gastrointestinal: Normal Bowel Sounds, Soft Neurologic/Psychiatric: Alert, Other (appears oriented to person and place) Results/Procedures Lab Laboratory Tests 03/26/21 05:27 Patient resulted labs reviewed. 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 Ischemic cardiomyopathy Poor prognosis Advanced age Goals of care discussion Cardiology consulted, appreciate assistance Planning for medical management Last EF 15-20% Refused AICD placement Repeat echo with EF 10-15% and grade II diastolic dysfunction Continue Lasix Hospice conversation had with [address] Bryant- other son Charles not present at time of discussion, plan was for them to talk as a family and report back, awaiting their response Palliative care consulted, appreciate assistance LENA on CKD3a Likely cardiorenal lasix Creatinine improved AFib with RVR Continue diltiazem- switched to IR dose as she chews her medicines Refuses chronic anticoagulation HCAP Continue Cefepime DVT ppx: ANDREI Jimenes MD Mar 26, 2021 13:06
--- NOTE | 2021-03-26 14:42 | Physical Therapy Evaluation ---
PT Evaluation-General Medical Diagnosis Admission Date Mar 23, 2021 at 22:40 Medical Diagnosis: Nimisha Hogan Onset Date: Mar 23, 2021 Therapy Diagnosis Therapy Diagnosis: debility/weakness Height/Weight Height (Feet): 5 Height (Inches): 5.00 Weight (Pounds): 107 Weight (Ounces): 1.0 Precautions Precautions/Isolations: Fall Prevention, Standard Precautions Referral Physician: Kalpana Reason for Referral: Evaluation/Treatment Medical History Pertinent Medical History: CAD, Heart Failure, NE Current History ER secondary to acute coronary syndrome/confusion and weakness Reviewed History: Yes Social History Home: Half-Way Prior Prior Level of Function SCALE: Activities may be completed with or without assistive devices. 8-Qbsasimbfe-netlurw completes the activity by him/herself with no assistance from a helper. 5-Set-up or Clean-up Assistance-helper sets up or cleans up; patient completes activity. [place] assists only prior to or following the activity. 4-Supervision or Touching Assistance-helper provides verbal cues and/or touching/steadying and/or contact guard assistance as patient completes activity. Assistance may be provided throughout the activity or intermittently. 3-Partial/Moderate Assistance-helper does LESS THAN HALF the effort. [place] lifts, holds or supports trunk or limbs, but provides less than half the effort. 2-Substantial/Maximal Assistance-helper does MORE THAN HALF the effort. [place] lifts or holds trunk or limbs and provides more than half the effort. 3-Mwuysboyy-unfmet does ALL the effort. Patient does none of the effort to complete the activity. Or, the assistance of 2 or more helpers is required for the patient to complete the activity. If activity was not attempted, code reason: 7-Patient Refused. 9-Not Applicable-not attempted and the patient did not perform the activity before the current illness, exacerbation or injury. 10-Not Attempted due to Environmental Limitations-(lack of equipment, weather restraints, etc.). 88-Not Attempted due to Medical Conditions or Safety Concerns. Bed Mobility: 2 Transfers (B,C,W/C): 2 Gait: 2 Prior Devices Use: Walker (right platform) PT Evaluation-Current Subjective Patient agrees to PT. Son present. Objective Patient Orientation: Confused Attachments: Oxygen, Angela Catheter ROM/Strength ROM Lower Extremities bilateral LE WFL Strength Lower Extremities 2+/5 grossly bilateral LE Integumentary/Posture Bladder Incontinence: Angela Cath Posture kyphotic Neuromuscular (Tone, Coordination, Reflexes) diminished coordination due to weakness Sensory Vision: Wears Glasses Transfers Lying to Sitting/Side of Bed(Q: 1 Sit to Stand (QC): 2 Chair/Zmw-gf-Eqxlg Xfer(QC): 2 (with patient presenting with severe retropulsion and left lean) Gait Does the Patient Walk?: No and Walking Goal IS indicated Gait Assistive Device: Walker Platform Balance Sitting Static: Fair Sitting Dynamic: Fair Standing Static: Poor Standing Dynamic: Poor Assessment/Needs 89 y.o. female, will be seen short term by skilled PT to address functional strength and mobility to improve current LOF. Rehab Potential: Poor PT Internet Marketing Analyst Goals Internet Marketing Analyst Goals PT Internet Marketing Analyst Goals Time Frame: Apr 06, 2021 Roll Left & Right (QC): 3 Sit to Lying (QC): 3 Lying-Sitting on Side/Bed(QC): 3 Sit to Stand (QC): 3 Chair/Rwv-vn-Bjqwg Xfer(QC): 3 Toilet Transfer (QC): 3 Walk 10 feet (QC): 3 PT Plan Problem List Problem List: Activity Tolerance, Functional Strength, Safety, Balance, Gait, Transfer, Bed Mobility Treatment/Plan Treatment Plan: Continue Plan of Care Treatment Plan: Bed Mobility, Education, Functional Activity Arely, Functional Strength, Gait, Safety, Therapeutic Exercise, Transfers Treatment Duration: Apr 06, 2021 Frequency: 6 times per week Estimated Hrs Per Day: .25 hour per day Patient and/or Family Agrees t: Yes Time/GCodes Time In: 1405 Time Out: 1420 Total Billed Treatment Time: 15 Total Billed Treatment 1 visit [facility] 15 min ROOPA FORMAN PT Mar 26, 2021 14:42
--- NOTE | 2021-03-26 15:56 | Progress Note - Cardiology ---
Cardiology SOAP Progress Note Subjective: Somnolent. Does not report any symptoms Objective: I&O/Vital Signs 03/26/21 03/26/21 03/26/21 03/26/21 04:20 07:23 08:00 11:43 Temp 36.1 36.6 35.0 Pulse 117 89 89 Resp 16 16 16 B/P (MAP) 146/72 (96) 134/79 (97) 156/60 (92) Pulse Ox 93 93 97 93 O2 Delivery Nasal Cannula Nasal Cannula Nasal Cannula Nasal Cannula O2 Flow Rate 2.00 2.00 2.00 2.00 03/26/21 00:00 Intake Total 310 ml Output Total 2075 ml Balance -1765 ml Weight (Pounds): 107 Weight (Ounces): 1.0 Weight (Calculated Kilograms): 48.841016 Constitutional: No AAO x 3; other (weak, thin, appears malnourished, somnolent, appears confused) Respiratory: No accessory muscle use; other (Diminished air ently at right base and mid-zone, basal fine and coarse crackles) Cardiovascular: irregularly irregular, S1 and S2, systolic murmur (soft NICOLETTE at card base) Gastrointestional: No tender; soft; No guarding, No rebound; audible bowel sounds Extremities: swelling (mild, bilateral leg edema); No clubbing, No cyanosis Neurologic/Psychiatric: other (somnolent and intermittently confused, moves all limbs equally) Skin: other (areas of mild bruising at sites of blood draws and minor trauma) Results/Procedures: Labs Laboratory Tests 03/26/21 05:27: White Blood Count 8.0, Red Blood Count 3.92, Hemoglobin 12.4, Hematocrit 42, Mean Corpuscular Volume 107H, Mean Corpuscular Hemoglobin 32, Mean Corpuscular Hemoglobin Concent 30L, Red Cell Distribution Width 15.2H, Platelet Count 229, Mean Platelet Volume 9.9, Immature Granulocyte % (Auto) 2, Neutrophils (%) (Auto) 80H, Lymphocytes (%) (Auto) 9L, Monocytes (%) (Auto) 8, Eosinophils (%) (Auto) 1, Basophils (%) (Auto) 0, Neutrophils # (Auto) 6.4, Lymphocytes # (Auto) 0.7L, Monocytes # (Auto) 0.7, Eosinophils # (Auto) 0.1, Basophils # (Auto) 0.0, Immature Granulocyte # (Auto) 0.2H, Sodium Level 137, Potassium Level 3.9, Chloride Level 101, Carbon Dioxide Level 24, Anion Gap 12, Blood Urea Nitrogen 47H, Creatinine 1.09, Estimat Glomerular Filtration Rate 47, BUN/Creatinine Ratio 43, Glucose Level 63L, Calcium Level 8.1L, Phosphorus Level 3.7, Magnesium Level 1.8 Microbiology 03/24/21 MRSA Screen - Final, Complete MRSA not isolated 03/23/21 Blood Culture - Preliminary, Resulted No growth 03/23/21 Urine Culture - Final, Complete NO GROWTH A/P: Assessment: Ac on chronic 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 cardiomyopathy - Last card cath of 09/13/19: mod CD, patent stent in mid LAD (Promus Premier 3 x 12, placed in 2014), marked impairment of LV systolic function with LVEF 20%, global hypokinesis, mild elev of LVEDP - Echo of 03/24/23: LVEF 10-15%, grade 2 diastolic dysfunction, mild MR, mild AI, R pleural effusion, PSP 40-45 mmHg Mild troponin elevation due to type 2 NV due to decompensated CHF Recent (mid March 2021) pneumonia Recent (January 2021) R hip repair after hip fracture from a non-syncopal fall Low body mass and weakness and cachetic appearance (worsening over 2019 and ) Chronic, bilateral leg swelling and stasis dermatitis PAD - Peripheral angio of 07/10/17: ectatic abdominal aorta, aorto-iliac calcification, mod dz of renal arteries, diffuse mod disease of both sup fems, 90% ostial and prox stenosis of the L sup fem, single vessel (ant tibial) run off in both legs with 90% ostial stenoses of both ant tibs. Peripheral PCI on 07/10/17: balloon angioplasty of ostial L ant tib that reduced 90% ostial stenosis to less than 30% residual, balloon angioplasty and stenting (Absolute Pro 7 x 80 stent, dilated to 5 mm wilder) to the L prox sup fem that reduced stenosis form 90% to 0% residual - Seg pressures of 07/08/17 showed mild to mod PAD of the R leg (WALTER 0.85 on the R and TBI 0.74 on the R) and moderate to mod severe PAD of the L leg (WALTER 0.62 on the L and TBI 0.38 on the L); repeat seg pressures of 07/15/17 (post L-sided intervention) much improved (R WALTER 1.01, R TBI, 0.81; L WALTER 1.06, L TBI 0.82) PAF with intermittent RVR - She refuses any oral anticoag (has refused on multiple occasions) Chronic RBBB 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 u/s of 02/15/16 H/o noncompliance with multiple medications and medical instructions Plan: * Complex management due to multiple CV and other comorbidities and patient's noncompliance with meds and medical instructions * Treat CHF with diuretics * Not a good candidate for long acting - Dilt because she is unable to swallow capsule, chewed the capsule this morning - will change to short acting medications that can be crushed in order for her to swallow * Hold dig because level 1.37 - repeat Dig level in the morning * BP has improved * Previously not suitable for beta-stella or NICHOLE-inhib or ARB due to low bp * Monitor labs * Palliative care visit yesterday Clinical Quality Measures Type of Care: Type of Care: Hospice Care (Home) DAWNA FOOTE MD FACP FACC CCDS Mar 26, 2021 15:56
[2021-03-26 16:00] VITALS: BP 124/49
[2021-03-26 20:00] VITALS: BP 97/78
[2021-03-26] MEDS: ENOXAPARIN 60 MG/0.6 ML (LOVENOX) SYR SC SCH (20:54)
[2021-03-27] VITALS (7 sets, daily range): BP systolic 116–132; BP diastolic 54–67
[2021-03-27 05:19] LABS: BASOPHILS % (AUTO) 0 % (0-10); EOSINOPHILS % (AUTO) 1 % (0-10); HEMATOCRIT 37 % (35-52); HEMOGLOBIN 11.4 g/dL (11.5-16.0); LYMPHOCYTES # (AUTO) 0.6 10^3/uL (1.0-4.0); LYMPHOCYTES % (AUTO) 8 % (12-44); MEAN CORPUSCULAR HEMOGLOBIN 32 pg (25-34); MEAN CORPUSCULAR HGB CONC 31 g/dL (32-36); MEAN CORPUSCULAR VOLUME 105 fL (80-99); MEAN PLATELET VOLUME 9.4 fL (9.0-12.2); MONOCYTES # (AUTO) 0.7 10^3/uL (0.0-1.0); MONOCYTES % (AUTO) 10 % (0-12); NEUTROPHILS # (AUTO) 6.1 10^3/uL (1.8-7.8); NEUTROPHILS % (AUTO) 80 % (42-75); PLATELET COUNT 210 10^3/uL (130-400); WHITE BLOOD COUNT 7.5 10^3/uL (4.3-11.0)
[2021-03-27 05:36] LABS: POTASSIUM 3.8 MMOL/L (3.6-5.0)
[2021-03-27 05:37] LABS: CALCIUM 7.9 MG/DL (8.5-10.1)
[2021-03-27 05:41] LABS: CREATININE SERUM 1.12 MG/DL (0.60-1.30); PHOSPHORUS 3.3 MG/DL (2.3-4.7)
[2021-03-27 05:44] LABS: MAGNESIUM 1.7 MG/DL (1.6-2.4)
[2021-03-27] MEDS: FUROSEMIDE 40 MG (LASIX) TAB PO SCH (05:52)
[2021-03-27] MEDS: ASPIRIN 81 MG CHEW (CHILDREN'S ASA) PO SCH (09:11)
--- NOTE | 2021-03-27 09:58 | Progress Note - Cardiology ---
Cardiology SOAP Progress Note Subjective: Lying in bed More alert this morning States she had a good night No c/o pain or SOB Objective: I&O/Vital Signs 04/09/21 04/09/21 04/09/21 04/09/21 07:46 08:00 08:41 12:56 Temp 36.5 Pulse 74 Resp 20 B/P (MAP) 114/62 (79) Pulse Ox 97 O2 Delivery Nasal Cannula Nasal Cannula Nasal Cannula Nasal Cannula O2 Flow Rate 2.00 2.00 2.00 04/09/21 00:00 Intake Total 1182 ml Balance 1182 ml Weight (Pounds): 107 Weight (Ounces): 1.0 Weight (Calculated Kilograms): 48.444467 Constitutional: No AAO x 3 (Easily awakens, oriented to self and place); other (weak, thin, appears malnourished) Respiratory: No accessory muscle use; other (Diminished air ently at right base and mid-zone, basal fine and coarse crackles) Cardiovascular: irregularly irregular, S1 and S2, systolic murmur (soft NICOLETTE at card base) Gastrointestional: No tender; soft; No guarding, No rebound; audible bowel sounds Extremities: swelling (mild, bilateral leg edema); No clubbing, No cyanosis Neurologic/Psychiatric: other (somnolent and intermittently confused, moves all limbs equally) Skin: other (areas of mild bruising at sites of blood draws and minor trauma) Results/Procedures: Labs Laboratory Tests 04/09/21 05:10: Hemoglobin 9.3L, Hematocrit 31L 04/09/21 14:07: Lab Scanned Report Transfusion Reaction Form Microbiology 03/24/21 MRSA Screen - Final, Complete MRSA not isolated 03/23/21 Blood Culture - Final, Complete No growth 03/23/21 Urine Culture - Final, Complete NO GROWTH A/P: Assessment: Ac on chronic 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 cardiomyopathy - Last card cath of 09/13/19: mod CD, patent stent in mid LAD (Promus Premier 3 x 12, placed in 2014), marked impairment of LV systolic function with LVEF 20%, global hypokinesis, mild elev of LVEDP - Echo of 03/24/23: LVEF 10-15%, grade 2 diastolic dysfunction, mild MR, mild AI, R pleural effusion, PSP 40-45 mmHg Mild troponin elevation due to type 2 [place] due to decompensated CHF Recent (mid March 2021) pneumonia Recent (January 2021) R hip repair after hip fracture from a non-syncopal fall Low body mass and weakness and cachetic appearance (worsening over 2019 and 2020) Chronic, bilateral leg swelling and stasis dermatitis PAD - Peripheral angio of 07/10/17: ectatic abdominal aorta, aorto-iliac calcification, mod dz of renal arteries, diffuse mod disease of both sup fems, 90% ostial and prox stenosis of the L sup fem, single vessel (ant tibial) run off in both legs with 90% ostial stenoses of both ant tibs. Peripheral PCI on 07/10/17: balloon angioplasty of ostial L ant tib that reduced 90% ostial stenosis to less than 30% residual, balloon angioplasty and stenting (Absolute Pro 7 x 80 stent, dilated to 5 mm wilder) to the L prox sup fem that reduced stenosis form 90% to 0% residual - Seg pressures of 07/08/17 showed mild to mod PAD of the R leg (WALTER 0.85 on the R and TBI 0.74 on the R) and moderate to mod severe PAD of the L leg (WALTER 0.62 on the L and TBI 0.38 on the L); repeat seg pressures of 07/15/17 (post L-sided intervention) much improved (R WALTER 1.01, R TBI, 0.81; L WALTER 1.06, L TBI 0.82) PAF with intermittent RVR - She refuses any oral anticoag (has refused on multiple occasions) Chronic RBBB 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 u/s of 02/15/16 H/o noncompliance with multiple medications and medical instructions Plan: * Complex management due to multiple CV and other comorbidities and patient's noncompliance with meds and medical instructions * Treat CHF with diuretics * Not a good candidate for long acting - Dilt because she is unable to swallow capsule, chewed the capsule this morning - compliant with short acting medications - continue short acting cardizem * Previously holding dig because level 1.37 - repeat Dig level this morning is less than 1.0 - restart Dig and monitor * BP has improved * Previously not suitable for beta-stella or NICHOLE-inhib or ARB due to low bp * Monitor labs * Palliative care visit yesterday Clinical Quality Measures Type of Care: Type of Care: Hospice Care (Home) ELEN LOZANO Mar 27, 2021 09:57
[2021-03-27] MEDS ORDERED: DIGOXIN 0.125 MG (LANOXIN) TAB PO SCH (10:00)
--- NOTE | 2021-03-27 10:13 | Physical Therapy Daily Note ---
PT Daily Note-Current Subjective Pt report she's ready to give up. She was encouraged to keep her spirits up and keep trying. Transfers SCALE: Activities may be completed with or without assistive devices. 7-Qblwhxpcpw-wlwzwlk completes the activity by him/herself with no assistance from a helper. 5-Set-up or Clean-up Assistance-helper sets up or cleans up; patient completes activity. [place] assists only prior to or following the activity. 4-Supervision or Touching Assistance-helper provides verbal cues and/or touching/steadying and/or contact guard assistance as patient completes activity. Assistance may be provided throughout the activity or intermittently. 3-Partial/Moderate Assistance-helper does LESS THAN HALF the effort. [place] lifts, holds or supports trunk or limbs, but provides less than half the effort. 2-Substantial/Maximal Assistance-helper does MORE THAN HALF the effort. [place] lifts or holds trunk or limbs and provides more than half the effort. 1-Emcjppqma-npnkoj does ALL the effort. Patient does none of the effort to complete the activity. Or, the assistance of 2 or more helpers is required for the patient to complete the activity. If activity was not attempted, code reason: 7-Patient Refused. 9-Not Applicable-not attempted and the patient did not perform the activity before the current illness, exacerbation or injury. 10-Not Attempted due to Environmental Limitations-(lack of equipment, weather restraints, etc.). 88-Not Attempted due to Medical Conditions or Safety Concerns. Transfer supine to sit at EOB with Max A. Sit to stand x 3 trials to platform walker with Moderate Assist. Worked on standing balance and wt shift. Pt needed moderate cues to find neutral ant/post wt shift. Pt transferred sit to supine with dependent assist. Exercises Supine Ex: Rolling, Heel Slides, Hip abd/add Supine Reps: 10 Seated Therapy Exercises: Ankle pumps, Sit to stand, Long arc quads Seated Reps: 10 Assessment Current Status: Poor Progress Pt did put forth effort to assist with transfers but is very limited secondary to weakness. She will benefit from continued PT. PT Rechecker Goals Rechecker Goals PT Rechecker Goals Time Frame: Apr 06, 2021 Roll Left & Right (QC): 3 Sit to Lying (QC): 3 Lying-Sitting on Side/Bed(QC): 3 Sit to Stand (QC): 3 Chair/Gys-ts-Okygy Xfer(QC): 3 Toilet Transfer (QC): 3 Walk 10 feet (QC): 3 PT Plan Treatment/Plan Treatment Plan: Continue Plan of Care Treatment Plan: Bed Mobility, Education, Functional Activity Arely, Functional Strength, Gait, Safety, Therapeutic Exercise, Transfers Treatment Duration: Apr 06, 2021 Frequency: 6 times per week Estimated Hrs Per Day: .25 hour per day Patient and/or Family Agrees t: Yes Time/GCodes Time In: 940 Time Out: 1010 Total Billed Treatment Time: 30 Total Billed Treatment visit, exercise 10min, FA 15 min EDITH DAVILA PT Mar 27, 2021 10:13
--- NOTE | 2021-03-27 11:48 | Progress Note - Hospitalist ---
Subjective HPI/CC On Admission Date Seen by Provider: Mar 27, 2021 Time Seen by Provider: 11:42 Nimisha Hogan is an 89y/o F who presents with acute coronary syndrome. Pt was discharged on 03/20 from this hospital after being treated for a HAP. Went home on [employer]. She was unsure of exactly what had happened yesterday but knows that she is currently in the hospital. She was able to state that yesterday she began feeling confused and weak but that was all that she remembered. Today she reports feeling fatigued. Pt's code status was discussed with her. She said that she did not want to be resuscitated if it came to that and to "let me go be with [place]". Pt was A&Ox3 at this time. Change in code status discussed w/ patient's son and he was understanding of the pt's decision. Subjective/Events-last exam Pt more alert today. No family at bedside. When asked how she is doing she states "I'm here." No specific complaints or concerns though. Objective Exam Vital Signs Vital Signs Date Time Temp Pulse Resp B/P (MAP) Pulse Ox O2 Delivery O2 Flow Rate FiO2 03/27/21 08:58 98 Nasal Cannula 3.50 03/27/21 08:00 36.4 68 14 130/60 (83) Capillary Refill : Less Than 3 Seconds General Appearance: No Apparent Distress, Chronically ill, Thin Respiratory: Lungs Clear, No Accessory Muscle Use Cardiovascular: Regular Rate, Rhythm, No Murmur Neurologic/Psychiatric: Alert, Other (appears oriented but did not answer many questions) Results/Procedures Lab Laboratory Tests 03/27/21 05:05 Patient resulted labs reviewed. 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 Ischemic cardiomyopathy Poor prognosis Advanced age Goals of care discussion Cardiology consulted, appreciate assistance Planning for medical management Last EF 15-20% Refused AICD placement Repeat echo with EF 10-15% and grade II diastolic dysfunction Continue Lasix Hospice conversation had with 2 son 03/[address] Bryant, I discussed situation with Charles yesterday. [place] goal is to get her home but we discussed that she may need NH stay as a stepping stone to home Palliative care consulted, appreciate assistance LENA on CKD3a Likely cardiorenal lasix Creatinine stable AFib with RVR Continue diltiazem- switched to IR dose as she chews her medicines Refuses chronic anticoagulation HCAP Completed Cefepime DVT ppx: ANDREI Jimenes MD Mar 27, 2021 11:47
--- NOTE | 2021-03-27 15:44 | Diagnostic Imaging Report ---
INDICATION: Recent hip fracture. TIME OF EXAM: 3:09 PM. COMPARISON: Prior left hip radiograph from 09/17/2009. FINDINGS: The femoroacetabular alignment is normal. The joint space is well-maintained. The femoral head and neck appear intact. The left sided rami are intact. There is a left femoral stent in place. IMPRESSION: No acute bony abnormality is detected. Dictated by: Dictated on workstation # [id number]
--- NOTE | 2021-03-27 15:47 | Diagnostic Imaging Report ---
INDICATION: Recent fracture. TIME OF EXAM: 3:05 PM. COMPARISON: No prior study is available for comparison. FINDINGS: There appears to be a fracture of the distal radius which may be partially healed. There is some sclerosis but there is some residual lucency from the fracture line. This likely has intra-articular extension. The distal ulna is intact. The carpus is intact. The overall alignment is anatomic. IMPRESSION: Healing intra-articular distal radius fracture. Dictated by: Dictated on workstation # [id number]
--- NOTE | 2021-03-27 17:43 | Progress Note - Cardiology ---
Cardiology SOAP Progress Note Subjective: No cp or palp or syncope Gen weakness No n/v/d, but does not wish to eat much Does not wish to take meds Objective: I&O/Vital Signs 03/27/21 03/27/21 03/27/21 03/27/21 08:00 08:00 08:58 12:00 Temp 36.4 36.2 Pulse 68 79 Resp 14 18 B/P (MAP) 130/60 (83) 122/55 (77) Pulse Ox 90 98 96 O2 Delivery Nasal Cannula Nasal Cannula Nasal Cannula Nasal Cannula O2 Flow Rate 3.50 3.50 3.50 3.50 03/27/21 03/27/21 14:27 15:56 Temp 36.4 Pulse 62 Resp 20 B/P (MAP) 132/56 (81) Pulse Ox 90 O2 Delivery Nasal Cannula Nasal Cannula O2 Flow Rate 3.50 3.50 03/27/21 00:00 Intake Total 450 ml Output Total 1400 ml Balance -950 ml Heart rate by auscultation on 03/27/21 at 5:30 pm is approximately 100 beats per minute Weight (Pounds): 107 Weight (Ounces): 1.0 Weight (Calculated Kilograms): 48.718392 Constitutional: other (weak, thin, appears malnourished, alert today, mildly confused) Respiratory: No accessory muscle use; other (Diminished air ently at right base and mid-zone, basal fine and coarse crackles) Cardiovascular: irregularly irregular, S1 and S2, systolic murmur (soft NICOLETTE at card base) Gastrointestional: No tender; soft; No guarding, No rebound; audible bowel sounds Extremities: swelling (mild, bilateral leg edema); No clubbing, No cyanosis Neurologic/Psychiatric: other (alert today, mildly confused, moves all limbs equally) Skin: other (areas of mild bruising at sites of blood draws and minor trauma) Results/Procedures: Labs Laboratory Tests 03/27/21 05:05: White Blood Count 7.5, Red Blood Count 3.56L, Hemoglobin 11.4L, Hematocrit 37, Mean Corpuscular Volume 105H, Mean Corpuscular Hemoglobin 32, Mean Corpuscular Hemoglobin Concent 31L, Red Cell Distribution Width 14.9H, Platelet Count 210, Mean Platelet Volume 9.4, Immature Granulocyte % (Auto) 2, Neutrophils (%) (Auto) 80H, Lymphocytes (%) (Auto) 8L, Monocytes (%) (Auto) 10, Eosinophils (%) (Auto) 1, Basophils (%) (Auto) 0, Neutrophils # (Auto) 6.1, Lymphocytes # (Auto) 0.6L, Monocytes # (Auto) 0.7, Eosinophils # (Auto) 0.0, Basophils # (Auto) 0.0, Immature Granulocyte # (Auto) 0.1, Sodium Level 137, Potassium Level 3.8, Chloride Level 100, Carbon Dioxide Level 26, Anion Gap 11, Blood Urea Nitrogen 46H, Creatinine 1.12, Estimat Glomerular Filtration Rate 46, BUN/Creatinine Ratio 41, Glucose Level 108H, Calcium Level 7.9L, Phosphorus Level 3.3, Magnesium Level 1.7, Digoxin Level 0.83 Microbiology 03/24/21 MRSA Screen - Final, Complete MRSA not isolated 03/23/21 Blood Culture - Preliminary, Resulted No growth 03/23/21 Urine Culture - Final, Complete NO GROWTH A/P: Assessment: Ac on chronic 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 cardiomyopathy - Last card cath of 09/13/19: mod CD, patent stent in mid LAD (Promus Premier 3 x 12, placed in 2014), marked impairment of LV systolic function with LVEF 20%, global hypokinesis, mild elev of LVEDP - Echo of 03/24/23: LVEF 10-15%, grade 2 diastolic dysfunction, mild MR, mild AI, R pleural effusion, PSP 40-45 mmHg Mild troponin elevation due to type 2 [place] due to decompensated CHF Recent (mid March 2021) pneumonia Recent (January 2021) R hip repair after hip fracture from a non-syncopal fall Low body mass and weakness and cachetic appearance (worsening over 2019 and 2020) Chronic, bilateral leg swelling and stasis dermatitis PAD - Peripheral angio of 07/10/17: ectatic abdominal aorta, aorto-iliac calcification, mod dz of renal arteries, diffuse mod disease of both sup fems, 90% ostial and prox stenosis of the L sup fem, single vessel (ant tibial) run off in both legs with 90% ostial stenoses of both ant tibs. Peripheral PCI on 07/10/17: balloon angioplasty of ostial L ant tib that reduced 90% ostial stenosis to less than 30% residual, balloon angioplasty and stenting (Absolute Pro 7 x 80 stent, dilated to 5 mm wilder) to the L prox sup fem that reduced stenosis form 90% to 0% residual - Seg pressures of 07/08/17 showed mild to mod PAD of the R leg (WALTER 0.85 on the R and TBI 0.74 on the R) and moderate to mod severe PAD of the L leg (WALTER 0.62 on the L and TBI 0.38 on the L); repeat seg pressures of 07/15/17 (post L-sided intervention) much improved (R WALTER 1.01, R TBI, 0.81; L WALTER 1.06, L TBI 0.82) PAF with intermittent RVR - She refuses any oral anticoag (has refused on multiple occasions) Chronic RBBB 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 u/s of 02/15/16 H/o noncompliance with multiple medications and medical instructions Plan: * Complex management due to multiple CV and other comorbidities and patient's noncompliance with meds and medical instructions * Treat CHF with diuretics * Not a good candidate for long acting - Dilt because she is unable to swallow capsule, chewed the capsule this morning - compliant with short acting medications - continue short acting cardizem * Previously holding dig because level 1.37 - repeat Dig level this morning is less than 1.0 - restart very low-dose Dig and monitor * BP has improved * Previously not suitable for beta-stella or NICHOLE-inhib or ARB due to low bp * Advised compliance with meds * Monitor labs * Palliative care visit yesterday Clinical Quality Measures Type of Care: Type of Care: Hospice Care (Home) DAWNA FOOTE MD [facility] Mar 27, 2021 17:43
[2021-03-27] MEDS: ENOXAPARIN 60 MG/0.6 ML (LOVENOX) SYR SC SCH (20:45)
[2021-03-28 03:41] VITALS: BP 127/55
[2021-03-28 05:48] LABS: BASOPHILS % (AUTO) 0 % (0-10); EOSINOPHILS # (AUTO) 0.1 10^3/uL (0.0-0.3); EOSINOPHILS % (AUTO) 1 % (0-10); HEMATOCRIT 36 % (35-52); LYMPHOCYTES # (AUTO) 0.7 10^3/uL (1.0-4.0); LYMPHOCYTES % (AUTO) 8 % (12-44); MEAN CORPUSCULAR HEMOGLOBIN 32 pg (25-34); MEAN CORPUSCULAR HGB CONC 31 g/dL (32-36); MEAN CORPUSCULAR VOLUME 102 fL (80-99); MEAN PLATELET VOLUME 9.3 fL (9.0-12.2); MONOCYTES # (AUTO) 0.9 10^3/uL (0.0-1.0); MONOCYTES % (AUTO) 10 % (0-12); NEUTROPHILS # (AUTO) 6.9 10^3/uL (1.8-7.8); NEUTROPHILS % (AUTO) 80 % (42-75); PLATELET COUNT 223 10^3/uL (130-400); WHITE BLOOD COUNT 8.7 10^3/uL (4.3-11.0)
[2021-03-28] MEDS: FUROSEMIDE 40 MG (LASIX) TAB PO SCH (06:00)
[2021-03-28 06:04] LABS: POTASSIUM 3.4 MMOL/L (3.6-5.0)
[2021-03-28 06:05] LABS: CALCIUM 8.1 MG/DL (8.5-10.1)
[2021-03-28 06:09] LABS: PHOSPHORUS 2.2 MG/DL (2.3-4.7)
[2021-03-28 06:10] LABS: CREATININE SERUM 0.98 MG/DL (0.60-1.30)
[2021-03-28 06:12] LABS: MAGNESIUM 1.7 MG/DL (1.6-2.4)
[2021-03-28 07:55] VITALS: BP 145/65
[2021-03-28] MEDS: ASPIRIN 81 MG CHEW (CHILDREN'S ASA) PO SCH (09:23)
--- NOTE | 2021-03-28 09:47 | Physical Therapy Daily Note ---
PT Daily Note-Current Subjective Patient is in bed. Agrees to PT. Mental Status Attachments: Oxygen, Angela Catheter Transfers SCALE: Activities may be completed with or without assistive devices. 3-Ephviqioav-yeyyekg completes the activity by him/herself with no assistance from a helper. 5-Set-up or Clean-up Assistance-helper sets up or cleans up; patient completes activity. [place] assists only prior to or following the activity. 4-Supervision or Touching Assistance-helper provides verbal cues and/or touching/steadying and/or contact guard assistance as patient completes activity. Assistance may be provided throughout the activity or intermittently. 3-Partial/Moderate Assistance-helper does LESS THAN HALF the effort. [place] lifts, holds or supports trunk or limbs, but provides less than half the effort. 2-Substantial/Maximal Assistance-helper does MORE THAN HALF the effort. [place] lifts or holds trunk or limbs and provides more than half the effort. 2-Bwohzpzzc-cbzgqk does ALL the effort. Patient does none of the effort to complete the activity. Or, the assistance of 2 or more helpers is required for the patient to complete the activity. If activity was not attempted, code reason: 7-Patient Refused. 9-Not Applicable-not attempted and the patient did not perform the activity before the current illness, exacerbation or injury. 10-Not Attempted due to Environmental Limitations-(lack of equipment, weather restraints, etc.). 88-Not Attempted due to Medical Conditions or Safety Concerns. Lying to Sitting/Side of Bed(Q: 1 (x 2) Sit to Stand (QC): 1 (x 2 with patient retropulsive with sit to stand and with transfer with platform FWW to recliner) Gait Training Distance: 5 small side step to left Gait Assistive Device: Walker Platform (right platform FWW) Exercises Supine Ex: Ankle pumps, Heel Slides Supine Reps: 12 (AAROM bilaterally) Seated Therapy Exercises: Long arc quads Seated Reps: 12 (AROM) Assessment Current Status: Poor Progress Patient up in recliner with needs met. Continue to address functional strength and mobility. PT Chcf Goals Chcf Goals PT Chcf Goals Time Frame: Apr 06, 2021 Roll Left & Right (QC): 3 Sit to Lying (QC): 3 Lying-Sitting on Side/Bed(QC): 3 Sit to Stand (QC): 3 Chair/Xzq-vq-Tpwee Xfer(QC): 3 Toilet Transfer (QC): 3 Walk 10 feet (QC): 3 PT Plan Treatment/Plan Treatment Plan: Continue Plan of Care Treatment Plan: Bed Mobility, Education, Functional Activity Arely, Functional Strength, Gait, Safety, Therapeutic Exercise, Transfers Treatment Duration: Apr 06, 2021 Frequency: 6 times per week Estimated Hrs Per Day: .25 hour per day Patient and/or Family Agrees t: Yes Time/GCodes Time In: 900 Time Out: 911 Total Billed Treatment Time: 11 Total Billed Treatment 1 visit EX 11 min ROOPA FORMAN PT Mar 28, 2021 09:47
[2021-03-28 11:07] VITALS: BP 106/59
--- NOTE | 2021-03-28 13:10 | Progress Note - Cardiology ---
Cardiology SOAP Progress Note Subjective: No cp or palp or syncope Weakness Poor appetite Would like to avoid meds Does not answer questions in detail Objective: I&O/Vital Signs 03/28/21 03/28/21 03/28/21 03/28/21 03:41 07:30 07:55 08:30 Temp 35.8 36.4 Pulse 65 73 Resp 14 16 B/P (MAP) 127/55 (79) 145/65 (91) Pulse Ox 93 93 O2 Delivery Nasal Cannula Nasal Cannula Nasal Cannula Nasal Cannula O2 Flow Rate 3.50 3.50 3.50 2.00 03/28/21 11:07 Temp 36.7 Pulse 76 Resp 24 B/P (MAP) 106/59 (75) Pulse Ox 98 O2 Delivery Nasal Cannula O2 Flow Rate 3.50 03/28/21 00:00 Intake Total 1080 ml Output Total 1550 ml Balance -470 ml Weight (Pounds): 107 Weight (Ounces): 1.0 Weight (Calculated Kilograms): 48.060527 Constitutional: other (weak, thin, appears malnourished, alert today, mildly confused) Respiratory: No accessory muscle use; other (Diminished air ently at right base and mid-zone, basal fine and coarse crackles) Cardiovascular: irregularly irregular, S1 and S2, systolic murmur (soft NICOLETTE at card base) Gastrointestional: No tender; soft; No guarding, No rebound; audible bowel sounds Extremities: swelling (mild, bilateral leg edema); No clubbing, No cyanosis Neurologic/Psychiatric: other (alert today, mildly confused, moves all limbs equally) Skin: other (areas of mild bruising at sites of blood draws and minor trauma) Results/Procedures: Labs Laboratory Tests 03/28/21 05:25: White Blood Count 8.7, Red Blood Count 3.47L, Hemoglobin 11.0L, Hematocrit 36, Mean Corpuscular Volume 102H, Mean Corpuscular Hemoglobin 32, Mean Corpuscular Hemoglobin Concent 31L, Red Cell Distribution Width 15.0H, Platelet Count 223, Mean Platelet Volume 9.3, Immature Granulocyte % (Auto) 1, Neutrophils (%) (Auto) 80H, Lymphocytes (%) (Auto) 8L, Monocytes (%) (Auto) 10, Eosinophils (%) (Auto) 1, Basophils (%) (Auto) 0, Neutrophils # (Auto) 6.9, Lymphocytes # (Auto) 0.7L, Monocytes # (Auto) 0.9, Eosinophils # (Auto) 0.1, Basophils # (Auto) 0.0, Immature Granulocyte # (Auto) 0.1, Sodium Level 140, Potassium Level 3.4L, Chloride Level 99, Carbon Dioxide Level 32, Anion Gap 9, Blood Urea Nitrogen 41H , Creatinine 0.98, Estimat Glomerular Filtration Rate 54, BUN/Creatinine Ratio 42, Glucose Level 106H, Calcium Level 8.1L, Phosphorus Level 2.2L, Magnesium Level 1.7 Microbiology 03/24/21 MRSA Screen - Final, Complete MRSA not isolated 03/23/21 Blood Culture - Preliminary, Resulted No growth 03/23/21 Urine Culture - Final, Complete NO GROWTH Laboratory Tests 03/27/21 05:05 03/28/21 05:25 A/P: Assessment: Ac on chronic 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 cardiomyopathy - Last card cath of 09/13/19: mod CD, patent stent in mid LAD (Promus Premier 3 x 12, placed in 2014), marked impairment of LV systolic function with LVEF 20%, global hypokinesis, mild elev of LVEDP - Echo of 03/24/23: LVEF 10-15%, grade 2 diastolic dysfunction, mild MR, mild AI, R pleural effusion, PSP 40-45 mmHg Mild troponin elevation due to type 2 [place] due to decompensated CHF Recent (mid March 2021) pneumonia Recent (January 2021) R hip repair after hip fracture from a non-syncopal fall Low body mass and weakness and cachetic appearance (worsening over 2019 and 2020) Chronic, bilateral leg swelling and stasis dermatitis PAD - Peripheral angio of 07/10/17: ectatic abdominal aorta, aorto-iliac calcification, mod dz of renal arteries, diffuse mod disease of both sup fems, 90% ostial and prox stenosis of the L sup fem, single vessel (ant tibial) run off in both legs with 90% ostial stenoses of both ant tibs. Peripheral PCI on 07/10/17: balloon angioplasty of ostial L ant tib that reduced 90% ostial stenosis to less than 30% residual, balloon angioplasty and stenting (Absolute Pro 7 x 80 stent, dilated to 5 mm wilder) to the L prox sup fem that reduced st enosis form 90% to 0% residual - Seg pressures of 07/08/17 showed mild to mod PAD of the R leg (WALTER 0.85 on the R and TBI 0.74 on the R) and moderate to mod severe PAD of the L leg (WALTER 0.62 on the L and TBI 0.38 on the L); repeat seg pressures of 07/15/17 (post L-sided intervention) much improved (R WALTER 1.01, R TBI, 0.81; L WALTER 1.06, L TBI 0.82) PAF with intermittent RVR - She refuses any oral anticoag (has refused on multiple occasions) Chronic RBBB 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 u/s of 02/15/16 H/o noncompliance with multiple medications and medical instructions Plan: * Complex management due to multiple CV and other comorbidities and patient's noncompliance with meds and medical instructions * Treat CHF with diuretics * Not a good candidate for long-acting diltiazem because she is unable to swallow capsule, currently compliant with short acting medications - continue short acting cardizem * D/c dig because heart rate in the 60s this am * Previously not suitable for beta-stella or NICHOLE-inhib or ARB due to low bp * Advised compliance with meds * Replenish K * Monitor labs * At the request of her son, I had a detailed discussion with Dr Molina, refrigeration engine operator, who is pt's son's son-in-law Clinical Quality Measures Type of Care: Type of Care: Hospice Care (Home) [facility] FOOTE [facility] Mar 28, 2021 13:10
[2021-03-28] MEDS ORDERED: KCL 20 MEQ TAB (K-DUR) PO ONE (13:15)
--- NOTE | 2021-03-28 14:10 | Progress Note - Hospitalist ---
Subjective HPI/CC On Admission Date Seen by Provider: Mar 28, 2021 Time Seen by Provider: 10:30 Nimisha Hogan is an 89y/o F who presents with acute coronary syndrome. Pt was discharged on 03/20 from this hospital after being treated for a HAP. Went home on Omnicef. She was unsure of exactly what had happened yesterday but knows that she is currently in the hospital. She was able to state that yesterday she began feeling confused and weak but that was all that she remembered. Today she reports feeling fatigued. Pt's code status was discussed with her. She said that she did not want to be resuscitated if it came to that and to "let me go be with [facility]". Pt was A&Ox3 at this time. Change in code status discussed w/ patient's son and he was understanding of the pt's decision. Subjective/Events-last exam Pt more alert today. States she is feeling ok. Just finished breakfast when I had seen her. Had no questions for me. Objective Exam Vital Signs Vital Signs Date Time Temp Pulse Resp B/P (MAP) Pulse Ox O2 Delivery O2 Flow Rate FiO2 03/28/21 11:07 36.7 76 24 106/59 (75) 98 Nasal Cannula 3.50 Capillary Refill : Less Than 3 Seconds General Appearance: No Apparent Distress, Chronically ill, Thin Respiratory: Lungs Clear, No Respiratory Distress Cardiovascular: Regular Rate, Rhythm, No Murmur Neurologic/Psychiatric: Alert, Oriented x3 Results/Procedures Lab Laboratory Tests 03/28/21 05:25 Patient resulted labs reviewed. 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 Ischemic cardiomyopathy Poor prognosis Advanced age Goals of care discussion Cardiology consulted, appreciate assistance Planning for medical management Last EF 15-20% Refused AICD placement Repeat echo with EF 10-15% and grade II diastolic dysfunction Continue Lasix Hospice conversation had with 2 son 03/[address] Bryant, I discussed situation with Charles 03/26; Ultimate goal is to get her home but we discussed that she may need NH stay as a stepping stone to home Continue with PT/OT, will likely need to return to SNF for continued strengthening prior to return home Palliative care consulted, appreciate assistance LENA on CKD3a Likely cardiorenal lasix Creatinine stable AFib with RVR Continue diltiazem- switched to IR dose as she chews her medicines Refuses chronic anticoagulation HCAP Completed Cefepime DVT ppx: ANDREI Jimenes MD Mar 28, 2021 14:10
--- NOTE | 2021-03-28 15:09 | Diagnostic Imaging Report ---
INDICATION: Recent surgery, right hip pain. COMPARISON: None available. TECHNIQUE: Two radiographs of the right hip dated March 28, 2021. FINDINGS: A gamma nail is transfixing a right intertrochanteric femoral fracture with alignment appearing near anatomic without evidence of hardware complication. No additional fracture or dislocation. No destructive osseous process. Osseous structures appear demineralized. Background vascular calcifications are present. Mild degenerative changes in the right hip and right sacroiliac joint. IMPRESSION: Internally fixated right femoral intertrochanteric fracture with alignment appearing near anatomic without evidence of hardware complication or acute osseous abnormality. Mild degenerative changes. Dictated by: Dictated on workstation # [id number]
[2021-03-28 16:00] VITALS: BP 144/67
[2021-03-28] MEDS: ENOXAPARIN 60 MG/0.6 ML (LOVENOX) SYR SC SCH (20:22)
[2021-03-28 23:30] VITALS: BP 131/62
[2021-03-29 05:55] LABS: BASOPHILS % (AUTO) 0 % (0-10); EOSINOPHILS # (AUTO) 0.2 10^3/uL (0.0-0.3); EOSINOPHILS % (AUTO) 2 % (0-10); HEMATOCRIT 37 % (35-52); HEMOGLOBIN 11.5 g/dL (11.5-16.0); LYMPHOCYTES # (AUTO) 0.7 10^3/uL (1.0-4.0); LYMPHOCYTES % (AUTO) 8 % (12-44); MEAN CORPUSCULAR HEMOGLOBIN 32 pg (25-34); MEAN CORPUSCULAR HGB CONC 31 g/dL (32-36); MEAN CORPUSCULAR VOLUME 103 fL (80-99); MEAN PLATELET VOLUME 9.6 fL (9.0-12.2); MONOCYTES # (AUTO) 0.8 10^3/uL (0.0-1.0); MONOCYTES % (AUTO) 9 % (0-12); NEUTROPHILS # (AUTO) 7.3 10^3/uL (1.8-7.8); NEUTROPHILS % (AUTO) 81 % (42-75); PLATELET COUNT 234 10^3/uL (130-400); WHITE BLOOD COUNT 9.1 10^3/uL (4.3-11.0)
[2021-03-29 06:02] LABS: POTASSIUM 3.3 MMOL/L (3.6-5.0)
[2021-03-29 06:04] LABS: CALCIUM 8.2 MG/DL (8.5-10.1)
[2021-03-29 06:08] LABS: CREATININE SERUM 0.83 MG/DL (0.60-1.30); PHOSPHORUS 1.6 MG/DL (2.3-4.7)
[2021-03-29 06:10] LABS: MAGNESIUM 1.6 MG/DL (1.6-2.4)
[2021-03-29] MEDS: FUROSEMIDE 40 MG (LASIX) TAB PO SCH (06:27)
[2021-03-29] MEDS ORDERED: KCL 20 MEQ TAB (K-DUR) PO SCH (07:00)
[2021-03-29 07:30] VITALS: BP 140/69
--- NOTE | 2021-03-29 09:12 | Physical Therapy Daily Note ---
PT Daily Note-Current Subjective Patient agrees to PT. Mental Status Attachments: Oxygen, Angela Catheter Transfers SCALE: Activities may be completed with or without assistive devices. 1-Dngvgtclmx-hkpkizn completes the activity by him/herself with no assistance from a helper. 5-Set-up or Clean-up Assistance-helper sets up or cleans up; patient completes activity. [place] assists only prior to or following the activity. 4-Supervision or Touching Assistance-helper provides verbal cues and/or touching/steadying and/or contact guard assistance as patient completes activity. Assistance may be provided throughout the activity or intermittently. 3-Partial/Moderate Assistance-helper does LESS THAN HALF the effort. [place] lifts, holds or supports trunk or limbs, but provides less than half the effort. 2-Substantial/Maximal Assistance-helper does MORE THAN HALF the effort. [place] lifts or holds trunk or limbs and provides more than half the effort. 0-Nhdcswjmf-gkejxy does ALL the effort. Patient does none of the effort to complete the activity. Or, the assistance of 2 or more helpers is required for the patient to complete the activity. If activity was not attempted, code reason: 7-Patient Refused. 9-Not Applicable-not attempted and the patient did not perform the activity befo re the current illness, exacerbation or injury. 10-Not Attempted due to Environmental Limitations-(lack of equipment, weather re straints, etc.). 88-Not Attempted due to Medical Conditions or Safety Concerns. Lying to Sitting/Side of Bed(Q: 1 Sit to Stand (QC): 1 Chair/Qfr-oo-Qlnyx Xfer(QC): 1 (with use of right platform FWW and dependent assist due to retropulsion) Gait Training Distance: 5 small steps to recliner Exercises Supine Ex: Ankle pumps, Heel Slides, Straight leg raise Supine Reps: 10 (AAROM ) Seated Therapy Exercises: Long arc quads Seated Reps: 15 (AROM) Assessment Current Status: Poor Progress PT Nurse Clinical Goals Nurse Clinical Goals PT Nurse Clinical Goals Time Frame: Apr 06, 2021 Roll Left & Right (QC): 3 Sit to Lying (QC): 3 Lying-Sitting on Side/Bed(QC): 3 Sit to Stand (QC): 3 Chair/Xqj-iy-Hqhip Xfer(QC): 3 Toilet Transfer (QC): 3 Walk 10 feet (QC): 3 PT Plan Treatment/Plan Treatment Plan: Continue Plan of Care Treatment Plan: Bed Mobility, Education, Functional Activity Arely, Functional Strength, Gait, Safety, Therapeutic Exercise, Transfers Treatment Duration: Apr 06, 2021 Frequency: 6 times per week Estimated Hrs Per Day: .25 hour per day Patient and/or Family Agrees t: Yes Time/GCodes Time In: 801 Time Out: 815 Total Billed Treatment Time: 14 Total Billed Treatment 1 visit EX 14 min ROOPA FORMAN PT Mar 29, 2021 09:12
[2021-03-29] MEDS: ASPIRIN 81 MG CHEW (CHILDREN'S ASA) PO SCH (09:30)
[2021-03-29] MEDS ORDERED: KCL 10 MEQ TAB (MICRO K) PO NR ×2 (15:45→21:00)
--- NOTE | 2021-03-29 15:54 | Progress Note - Hospitalist ---
Subjective HPI/CC On Admission Date Seen by Provider: Mar 29, 2021 Time Seen by Provider: 15:48 Nimisha Hogan is an 89y/o F who presents with acute coronary syndrome. Pt was discharged on 03/20 from this hospital after being treated for a HAP. Went home on Omnicef. She was unsure of exactly what had happened yesterday but knows that she is currently in the hospital. She was able to state that yesterday she began feeling confused and weak but that was all that she remembered. Today she reports feeling fatigued. Pt's code status was discussed with her. She said that she did not want to be resuscitated if it came to that and to "let me go be with [facility]". Pt was A&Ox3 at this time. Change in code status discussed w/ patient's son and he was understanding of the pt's decision. Subjective/Events-last exam Pt reports feeling ok today. Was up in the chair. I attempted to call her son but no answer and voicemail with no identifying information. Objective Exam Vital Signs Vital Signs Date Time Temp Pulse Resp B/P (MAP) Pulse Ox O2 Delivery O2 Flow Rate FiO2 03/29/21 10:19 03/29/21 08:00 Nasal Cannula 2.00 03/29/21 07:30 36.3 69 18 96 Capillary Refill : Less Than 3 Seconds General Appearance: No Apparent Distress, Chronically ill, Thin Respiratory: Lungs Clear, No Respiratory Distress Cardiovascular: Regular Rate, Rhythm, No Murmur Neurologic/Psychiatric: Alert, Oriented x3 Results/Procedures Lab Laboratory Tests 03/29/21 05:12 Patient resulted labs reviewed. 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 Ischemic cardiomyopathy Poor prognosis Advanced age Goals of care discussion Cardiology consulted, appreciate assistance Planning for medical management Last EF 15-20% Refused AICD placement Repeat echo with EF 10-15% and grade II diastolic dysfunction Continue Lasix- son was apparently question cardiology and nurse about this, I was unable to contact him today Hospice conversation had with 2 son 03/[address] Bryant, I discussed situation with Charles 03/26; Ultimate goal is to get her home but we discussed that she may need NH stay as a stepping stone to home Continue with PT/OT, will likely need to return to SNF for continued strengthening prior to return home based on her current progress Palliative care consulted, appreciate assistance LENA on CKD3a Likely cardiorenal lasix as tolerates Creatinine stable AFib with RVR Continue diltiazem- switched to IR dose as she chews her medicines Refuses chronic anticoagulation HCAP Completed Cefepime DVT ppx: Lovenox ANDREI MACIAS MD Mar 29, 2021 15:54
[2021-03-29 16:09] VITALS: BP 120/58
--- NOTE | 2021-03-29 16:14 | Progress Note - Cardiology ---
Cardiology SOAP Progress Note Subjective: No cp or palp or syncope No shortness of breath at rest Gen weakness and malaise Poor appetite Objective: I&O/Vital Signs 03/29/21 03/29/21 03/29/21 07:30 08:00 10:19 Temp 36.3 Pulse 69 Resp 18 B/P (MAP) 140/69 (92) Pulse Ox 96 O2 Delivery Nasal Cannula Nasal Cannula O2 Flow Rate 3.50 2.00 03/28/21 23:59 Intake Total 660 ml Output Total 1550 ml Balance -890 ml Weight (Pounds): 107 Weight (Ounces): 1.0 Weight (Calculated Kilograms): [id number] Constitutional: other (weak, thin, appears malnourished, alert today, mildly confused) Respiratory: No accessory muscle use; other (Diminished air ently at right base and mid-zone, basal fine and coarse crackles) Cardiovascular: irregularly irregular, S1 and S2, systolic murmur (soft NICOLETTE at card base) Gastrointestional: No tender; soft; No guarding, No rebound; audible bowel sounds Extremities: swelling (mild, bilateral leg edema); No clubbing, No cyanosis Neurologic/Psychiatric: other (alert today, mildly confused, moves all limbs equally) Skin: other (areas of mild bruising at sites of blood draws and minor trauma) Results/Procedures: Labs Laboratory Tests 03/28/21 16:45: Influenza Type A (RT-PCR) Not Detected, Influenza Type B (RT-PCR) Not Detected, SARS-CoV-2 RNA (RT-PCR) Not Detected 03/29/21 05:12: White Blood Count 9.1, Red Blood Count 3.62L, Hemoglobin 11.5, Hematocrit 37, Mean Corpuscular Volume 103H, Mean Corpuscular Hemoglobin 32, Mean Corpuscular Hemoglobin Concent 31L, Red Cell Distribution Width 15.1H, Platelet Count 234, Mean Platelet Volume 9.6, Immature Granulocyte % (Auto) 1, Neutrophils (%) (Auto) 81H, Lymphocytes (%) (Auto) 8L, Monocytes (%) (Auto) 9, Eosinophils (%) (Auto) 2, Basophils (%) (Auto) 0, Neutrophils # (Auto) 7.3, Lymphocytes # (Auto) 0.7L, Monocytes # (Auto) 0.8, Eosinophils # (Auto) 0.2, Basophils # (Auto) 0.0, Immature Granulocyte # (Auto) 0.1, Sodium Level 140, Potassium Level 3.3L, Chloride Level 95L, Carbon Dioxide Level 37H, Anion Gap 8, Blood Urea Nitrogen 32H, Creatinine 0.83, Estimat Glomerular Filtration Rate 65, BUN/Creatinine Ratio 39, Glucose Level 97, Calcium Level 8.2L, Phosphorus Level 1.6L, Magnesium Level 1.6, Digoxin Level 0.78L Microbiology 03/24/21 MRSA Screen - Final, Complete MRSA not isolated 03/23/21 Blood Culture - Preliminary, Resulted No growth 03/23/21 Urine Culture - Final, Complete NO GROWTH A/P: Assessment: Ac on chronic 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 - Last card cath of 09/13/19: mod CD, patent stent in mid LAD (Promus Premier 3 x 12, placed in 2014), marked impairment of LV systolic function with LVEF 20%, global hypokinesis, mild elev of LVEDP - Echo of 03/24/23: LVEF 10-15%, grade 2 diastolic dysfunction, mild MR, mild AI, R pleural effusion, PSP 40-45 mmHg Persistent A FIB with intermittent RVR (due to noncompliance with meds) - Currently heart rate is controlled - She refuses any oral anticoag (has refused on multiple occasions) Mild troponin elevation due to type 2 MD due to decompensated CHF Recent (mid March 2021) pneumonia Recent (January 2021) R hip repair after hip fracture from a non-syncopal fall Low body mass and weakness and cachetic appearance (worsening over 2019 and 2020) PAD - Peripheral angio of 07/10/17: ectatic abdominal aorta, aorto-iliac calcification, mod dz of renal arteries, diffuse mod disease of both sup fems, 90% ostial and prox stenosis of the L sup fem, single vessel (ant tibial) run off in both legs with 90% ostial stenoses of both ant tibs. Peripheral PCI on 07/10/17: balloon angioplasty of ostial L ant tib that reduced 90% ostial stenosis to less than 30% residual, balloon angioplasty and stenting (Absolute Pro 7 x 80 stent, dilated to 5 mm wilder) to the L prox sup fem that reduced stenosis form 90% to 0% residual - Seg pressures of 07/08/17 showed mild to mod PAD of the R leg (WALTER 0.85 on the R and TBI 0.74 on the R) and moderate to mod severe PAD of the L leg (WALTER 0.62 on the L and TBI 0.38 on the L); repeat seg pressures of 07/15/17 (post L-sided intervention) much improved (R WALTER 1.01, R TBI, 0.81; L WALTER 1.06, L TBI 0.82) Chronic RBBB 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 u/s of 02/15/16 H/o noncompliance with multiple medications and medical instructions Chronic, bilateral leg swelling and stasis dermatitis Plan: * Complex management due to multiple CV and other comorbidities and patient's noncompliance with meds and medical instructions * Not a good candidate for long-acting diltiazem because she is unable to swallow capsule, currently compliant with short acting medications - continue short acting cardizem * Reduce furosemide. Add sprinolactone. Reduce daily KCl after adding spironolactone * Previously not suitable for beta-stella or NICHOLE-inhib or ARB due to low bp * Advised compliance with meds * Replenish K today * Monitor labs * At the request of her son, on 03/28/21, I had a detailed discussion with Dr Molina, cloth printing inspector, who is pt's son's son-in-law Clinical Quality Measures Type of Care: Type of Care: Hospice Care (Home) DAWNA FOOTE MD [facility] Mar 29, 2021 16:14
[2021-03-29] MEDS ORDERED: KCL 20 MEQ TAB (K-DUR) PO NR (17:00)
[2021-03-29] MEDS ORDERED: NITROGLYCERIN 0.4 MG SL TABS BTL 25'S SL PRN ×2 (22:15)
[2021-03-29] MEDS: ENOXAPARIN 60 MG/0.6 ML (LOVENOX) SYR SC SCH (22:19)
[2021-03-29 23:40] VITALS: BP 136/63
[2021-03-30] MEDS: fentaNYL INJ 100 MCG/2 ML AMP IV PRN (00:51)
[2021-03-30 05:54] LABS: BASOPHILS % (AUTO) 0 % (0-10); EOSINOPHILS # (AUTO) 0.1 10^3/uL (0.0-0.3); EOSINOPHILS % (AUTO) 1 % (0-10); HEMATOCRIT 40 % (35-52); HEMOGLOBIN 12.1 g/dL (11.5-16.0); LYMPHOCYTES # (AUTO) 0.8 10^3/uL (1.0-4.0); LYMPHOCYTES % (AUTO) 9 % (12-44); MEAN CORPUSCULAR HEMOGLOBIN 32 pg (25-34); MEAN CORPUSCULAR HGB CONC 31 g/dL (32-36); MEAN CORPUSCULAR VOLUME 103 fL (80-99); MEAN PLATELET VOLUME 9.3 fL (9.0-12.2); MONOCYTES # (AUTO) 0.8 10^3/uL (0.0-1.0); MONOCYTES % (AUTO) 8 % (0-12); NEUTROPHILS # (AUTO) 7.8 10^3/uL (1.8-7.8); NEUTROPHILS % (AUTO) 81 % (42-75); PLATELET COUNT 260 10^3/uL (130-400); WHITE BLOOD COUNT 9.7 10^3/uL (4.3-11.0)
[2021-03-30 06:06] LABS: POTASSIUM 3.9 MMOL/L (3.6-5.0)
[2021-03-30 06:07] LABS: CALCIUM 8.5 MG/DL (8.5-10.1)
[2021-03-30 06:12] LABS: CREATININE SERUM 0.79 MG/DL (0.60-1.30); PHOSPHORUS 1.3 MG/DL (2.3-4.7)
[2021-03-30 06:14] LABS: MAGNESIUM 1.8 MG/DL (1.6-2.4)
[2021-03-30] MEDS: FUROSEMIDE 40 MG (LASIX) TAB PO SCH (06:46)
[2021-03-30] MEDS: KCL 10 MEQ TAB (MICRO K) PO SCH (06:46)
[2021-03-30] MEDS ORDERED: KCL 10 MEQ TAB (MICRO K) PO SCH (07:00)
[2021-03-30] MEDS ORDERED: KCL 20 MEQ TAB (K-DUR) PO SCH (07:00)
[2021-03-30 07:05] VITALS: BP 145/58
--- NOTE | 2021-03-30 08:17 | Physical Therapy Daily Note ---
PT Daily Note-Current Subjective States that she is really tired but that she will agree to bed exercises. Transfers SCALE: Activities may be completed with or without assistive devices. 1-Ylyelyypir-hjgpyea completes the activity by him/herself with no assistance from a helper. 5-Set-up or Clean-up Assistance-helper sets up or cleans up; patient completes activity. [place] assists only prior to or following the activity. 4-Supervision or Touching Assistance-helper provides verbal cues and/or touching/steadying and/or contact guard assistance as patient completes activity. Assistance may be provided throughout the activity or intermittently. 3-Partial/Moderate Assistance-helper does LESS THAN HALF the effort. [place] lifts, holds or supports trunk or limbs, but provides less than half the effort. 2-Substantial/Maximal Assistance-helper does MORE THAN HALF the effort. [place] lifts or holds trunk or limbs and provides more than half the effort. 9-Xedpnngao-tjtcvo does ALL the effort. Patient does none of the effort to complete the activity. Or, the assistance of 2 or more helpers is required for the patient to complete the activity. If activity was not attempted, code reason: 7-Patient Refused. 9-Not Applicable-not attempted and the patient did not perform the activity before the current illness, exacerbation or injury. 10-Not Attempted due to Environmental Limitations-(lack of equipment, weather restraints, etc.). 88-Not Attempted due to Medical Conditions or Safety Concerns. Exercises Supine Ex: LE Protocol Supine Reps: 20 Assessment Current Status: Fair Progress Patient had considerable SOB today but was able to successfully complete bed exercises. PT [employer] Goals Jail Goals PT Jail Goals Time Frame: Apr 06, 2021 Roll Left & Right (QC): 3 Sit to Lying (QC): 3 Lying-Sitting on Side/Bed(QC): 3 Sit to Stand (QC): 3 Chair/Agi-ti-Mfjze Xfer(QC): 3 Toilet Transfer (QC): 3 Walk 10 feet (QC): 3 PT Plan Treatment/Plan Treatment Plan: Continue Plan of Care Treatment Plan: Bed Mobility, Education, Functional Activity Arely, Functional Strength, Gait, Safety, Therapeutic Exercise, Transfers Treatment Duration: Apr 06, 2021 Frequency: 6 times per week Estimated Hrs Per Day: .25 hour per day Patient and/or Family Agrees t: Yes Time/GCodes Time In: 0800 Time Out: 814 Total Billed Treatment Time: 15 Total Billed Treatment 1, EX x 15 NANCY VARELA PT Mar 30, 2021 08:17
[2021-03-30] MEDS: SPIRONOLACTONE 25 MG (ALDACTONE) TAB PO SCH (08:37)
[2021-03-30] MEDS: ASPIRIN 81 MG CHEW (CHILDREN'S ASA) PO SCH (08:37)
--- NOTE | 2021-03-30 10:28 | Progress Note - Hospitalist ---
Subjective HPI/CC On Admission Date Seen by Provider: Mar 30, 2021 Time Seen by Provider: 10:24 Nimisha Hogan is an 89y/o F who presents with acute coronary syndrome. Pt was discharged on 03/20 from this hospital after being treated for a HAP. Went home on Omnicef. She was unsure of exactly what had happened yesterday but knows that she is currently in the hospital. She was able to state that yesterday she began feeling confused and weak but that was all that she remembered. Today she reports feeling fatigued. Pt's code status was discussed with her. She said that she did not want to be resuscitated if it came to that and to "let me go be with [place]". Pt was A&Ox3 at this time. Change in code status discussed w/ patient's son and he was understanding of the pt's decision. Subjective/Events-last exam Patient reports feeling okay today. Review of notes indicates that she had chest pain last night. She denies this to me. Apparently it resolved on its own. I did speak with her family member Dr. Nikita Hernández who is a manager hospital in [place]. He agrees with DNR status and return to snf. Objective Exam Vital Signs Vital Signs Date Time Temp Pulse Resp B/P (MAP) Pulse Ox O2 Delivery O2 Flow Rate FiO2 03/30/21 08:00 Nasal Cannula 3.00 03/30/21 07:50 99 03/30/21 07:05 36.1 81 20 145/58 (87) Capillary Refill : Less Than 3 Seconds General Appearance: No Apparent Distress, Chronically ill, Thin Respiratory: Lungs Clear, No Accessory Muscle Use Cardiovascular: Regular Rate, Rhythm, No Murmur Neurologic/Psychiatric: Alert, Oriented x3 Results/Procedures Lab Laboratory Tests 03/30/21 05:27 Patient resulted labs reviewed. 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 Ischemic cardiomyopathy Poor prognosis Advanced age Goals of care discussion Cardiology consulted, appreciate assistance Planning for medical management Last EF 15-20% Refused AICD placement Repeat echo with EF 10-15% and grade II diastolic dysfunction Continue Lasix at lower dose and spironolactone Hospice conversation had with 2 son 03/[address] Bryant, I discussed situation with Charles 03/26; Ultimate goal is to get her home but we discussed that she may need NH stay as a stepping stone to home, spoke with family member Dr Nikita Molina ([phone]) today Continue with PT/OT, will need to return to SNF for continued strengthening prior to return home based on her current progress Palliative care consulted, appreciate assistance LENA on CKD3a Likely cardiorenal lasix as tolerates Creatinine stable AFib with RVR Continue diltiazem- switched to IR dose as she chews her medicines Refuses chronic anticoagulation DVT ppx: ANDREI Jimenes MD Mar 30, 2021 10:28
--- NOTE | 2021-03-30 11:03 | Cardiology Progress Note ---
Subjective Date Seen by Provider: Mar 30, 2021 Time Seen by Provider: 10:59 Subjective/Events-last exam Patient was seen at bedside, laying down comfortably, feeling better today, no further episodes of chest pain Review of Systems General: No Chills, No Night Sweats, No Fatigue, No Malaise, No Appetite, No Other HEENT: No Head Aches, No Visual Changes, No Eye Pain, No Ear Pain, No Dysphasia, No Sinus Congestion, No Post Nasal Drip, No Sore Throat, No Other Pulmonary: No Dyspnea, No Cough, No Pleuritic Chest Pain, No Other Cardiovascular: No: Chest Pain, Palpitations, Orthopnea, Paroxysmal Noc. Dyspnea, Edema, Lt Headedness, Other Objective-Cardiology Exam Last Set of Vital Signs Vital Signs 03/30/21 03/30/21 03/30/21 07:05 07:50 08:00 Temp 36.1 Pulse 81 Resp 20 B/P (MAP) 145/58 (87) Pulse Ox 99 O2 Delivery Nasal Cannula O2 Flow Rate 3.00 I&O Intake and Output 03/30/21 00:00 Intake Total 1160 ml Output Total 1900 ml Balance -740 ml Intake Oral 1160 ml Output Urine Total 1900 ml # Bowel Movements 1 General: Alert, Oriented X3, Cooperative HEENT: Atraumatic, PERRLA Neck: Supple, No JVD, No Thyromegaly Lungs: Clear to Auscultation, Normal Air Movement Heart: Normal S1, Normal S2, No Murmurs, Other (Atrial fibrillation) Abdomen: Normal Bowel Sounds, Soft, No Tenderness, No Hepatosplenomegaly, No Masses Extremities: No Clubbing, No Cyanosis, No Edema, Normal Pulses, No Tenderness/S welling Skin: No Rashes, No Breakdown, No Significant Lesion Neuro: Normal Gait, Normal Speech, Strength at 5/5 X4 Ext, Normal Tone, Sensation Intact Psych/Mental Status: Mental Status NL, Mood NL Results Lab Laboratory Tests 03/30/21 05:27 A/P-Cardiology Admission Diagnosis Chest pain Coronary artery disease Persistent atrial fibrillation Peripheral arterial disease Assessment/Plan Chest pain nonspecific etiology, had few episodes of chest pain on March 29, 2021, feeling better at this time, no active chest pain. Congestive heart failure, acute on chronic left ventricular systolic dysfunction, ejection fraction 10 to 15%, ischemic cardiomyopathy. Currently stable Coronary artery disease, last cardiac catheterization was carried out in September 2019 showing moderate disease, patent stent in the mid LAD, known to have Promus Premier 3 x 12 placed in 2014, continue to monitor Chronic persistent atrial fibrillation, heart rate is controlled. Refusing anticoagulation Small troponin elevation, chronic due to heart failure Recent pneumonia, continue to monitor Peripheral arterial disease, extensive disease, Peripheral angio of 07/10/17: ectatic abdominal aorta, aorto-iliac calcification, mod dz of renal arteries, diffuse mod disease of both sup fems, 90% ostial and prox stenosis of the L sup fem, single vessel (ant tibial) run off in both legs with 90% ostial stenoses of both ant tibs. Peripheral PCI on 07/10/17: balloon angioplasty of ostial L ant tib that reduced 90% ostial stenosis to less than 30% residual, balloon angioplasty and stenting (Absolute Pro 7 x 80 stent, dilated to 5 mm wilder) to the L prox sup fem that reduced stenosis form 90% to 0% residual - Seg pressures of 07/08/17 showed mild to mod PAD of the R leg (WALTER 0.85 on the R and TBI 0.74 on the R) and moderate to mod severe PAD of the L leg (WALTER 0.62 on the L and TBI 0.38 on the L); repeat seg pressures of 07/15/17 (post L-sided intervention) much improved (R WALTER 1.01, R TBI, 0.81; L WALTER 1.06, L TBI 0.82) Chronic right bundle branch block Mild bilateral carotid stenosis Debility Noncompliance with medication FERNANDO BERNARD MD Mar 30, 2021 11:03
[2021-03-30 15:30] VITALS: BP 141/45
[2021-03-30] MEDS: ENOXAPARIN 60 MG/0.6 ML (LOVENOX) SYR SC SCH (20:59)
[2021-03-30 23:30] VITALS: BP 139/63
[2021-03-31 06:18] LABS: BASOPHILS % (AUTO) 0 % (0-10); EOSINOPHILS # (AUTO) 0.2 10^3/uL (0.0-0.3); EOSINOPHILS % (AUTO) 2 % (0-10); HEMATOCRIT 38 % (35-52); HEMOGLOBIN 11.4 g/dL (11.5-16.0); LYMPHOCYTES % (AUTO) 11 % (12-44); MEAN CORPUSCULAR HEMOGLOBIN 32 pg (25-34); MEAN CORPUSCULAR HGB CONC 30 g/dL (32-36); MEAN CORPUSCULAR VOLUME 104 fL (80-99); MEAN PLATELET VOLUME 9.4 fL (9.0-12.2); MONOCYTES # (AUTO) 0.8 10^3/uL (0.0-1.0); MONOCYTES % (AUTO) 9 % (0-12); NEUTROPHILS % (AUTO) 77 % (42-75); PLATELET COUNT 258 10^3/uL (130-400); WHITE BLOOD COUNT 9.1 10^3/uL (4.3-11.0)
[2021-03-31 06:30] LABS: POTASSIUM 4.2 MMOL/L (3.6-5.0)
[2021-03-31 06:31] LABS: CALCIUM 8.6 MG/DL (8.5-10.1)
[2021-03-31 06:36] LABS: CREATININE SERUM 0.78 MG/DL (0.60-1.30); PHOSPHORUS 1.5 MG/DL (2.3-4.7)
[2021-03-31] MEDS: KCL 10 MEQ TAB (MICRO K) PO SCH (06:37)
[2021-03-31] MEDS: FUROSEMIDE 40 MG (LASIX) TAB PO SCH (06:37)
[2021-03-31 06:38] LABS: MAGNESIUM 1.8 MG/DL (1.6-2.4)
[2021-03-31] MEDS: FUROSEMIDE 20 MG (LASIX) TAB PO SCH (07:02)
[2021-03-31 07:10] VITALS: BP 123/66
[2021-03-31] MEDS: ASPIRIN 81 MG CHEW (CHILDREN'S ASA) PO SCH (08:48)
[2021-03-31] MEDS: SPIRONOLACTONE 25 MG (ALDACTONE) TAB PO SCH (08:48)
--- NOTE | 2021-03-31 10:03 | Progress Note - Hospitalist ---
Subjective HPI/CC On Admission Date Seen by Provider: Mar 31, 2021 Time Seen by Provider: 09:58 Nimisha Hogan is an 89y/o F who presents with acute coronary syndrome. Pt was discharged on 03/20 from this hospital after being treated for a HAP. Went home on Omnicef. She was unsure of exactly what had happened yesterday but knows that she is currently in the hospital. She was able to state that yesterday she began feeling confused and weak but that was all that she remembered. Today she reports feeling fatigued. Pt's code status was discussed with her. She said that she did not want to be resuscitated if it came to that and to "let me go be with [facility]". Pt was A&Ox3 at this time. Change in code status discussed w/ patient's son and he was understanding of the pt's decision. Subjective/Events-last exam Patient reports feeling okay today. No complaints. Had just finished breakfast. I watered her varma for her. Objective Exam Vital Signs Vital Signs Date Time Temp Pulse Resp B/P (MAP) Pulse Ox O2 Delivery O2 Flow Rate FiO2 03/31/21 08:00 Nasal Cannula 3.00 03/31/21 07:10 36.5 87 22 123/66 (85) 100 Capillary Refill : Less Than 3 Seconds General Appearance: No Apparent Distress, Chronically ill, Thin Respiratory: Lungs Clear, No Respiratory Distress Cardiovascular: Regular Rate, Rhythm, No Murmur Neurologic/Psychiatric: Alert, Oriented x3 Results/Procedures Lab Laboratory Tests 03/31/21 06:08 Patient resulted labs reviewed. 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 Ischemic cardiomyopathy Poor prognosis Advanced age Goals of care discussion Cardiology consulted, appreciate assistance Planning for medical management Last EF 15-20% Refused AICD placement Repeat echo with EF 10-15% and grade II diastolic dysfunction Continue Lasix at lower dose and spironolactone Hospice conversation had with 2 son 03/[address] Bryant, I discussed situation with Hcarles 03/26; Ultimate goal is to get her home but we discussed that she may need NH stay as a stepping stone to home, spoke with family member Dr Nikita Molina ([phone]) 03/31 Continue with PT/OT, will need to return to SNF for continued strengthening prior to return home based on her current progress Palliative care consulted, appreciate assistance LENA on CKD3a Likely cardiorenal lasix as tolerates Creatinine stable AFib with RVR Continue diltiazem- switched to IR dose as she chews her medicines Refuses chronic anticoagulation DVT ppx: ANDREI Jimenes MD Mar 31, 2021 10:02
--- NOTE | 2021-03-31 11:08 | Cardiology Progress Note ---
Subjective Date Seen by Provider: Mar 31, 2021 Time Seen by Provider: 11:07 Subjective/Events-last exam Patient is laying down in bed, complaining of generalized weakness and debility Review of Systems General: No Chills, No Night Sweats; Fatigue, Malaise; No Appetite, No Other Pulmonary: Dyspnea; No Cough, No Pleuritic Chest Pain, No Other Cardiovascular: No: Chest Pain, Palpitations, Orthopnea, Paroxysmal Noc. Dyspnea, Edema, Lt Headedness, Other Objective-Cardiology Exam Last Set of Vital Signs Vital Signs 03/31/21 03/31/21 07:10 08:00 Temp 36.5 Pulse 87 Resp 22 B/P (MAP) 123/66 (85) Pulse Ox 100 O2 Delivery Nasal Cannula O2 Flow Rate 3.00 I&O Intake and Output 03/31/21 00:00 Intake Total 1430 ml Output Total 875 ml Balance 555 ml Intake Oral 1430 ml Output Urine Total 875 ml # Bowel Movements 2 General: Alert, Oriented X3, Cooperative HEENT: Atraumatic, PERRLA Neck: Supple, No JVD, No Thyromegaly Lungs: Clear to Auscultation, Normal Air Movement Heart: Normal S1, Normal S2, No Murmurs, Other (Atrial fibrillation) Abdomen: Normal Bowel Sounds, Soft, No Tenderness, No Hepatosplenomegaly, No Masses Extremities: No Clubbing, No Cyanosis, No Edema, Normal Pulses, No Tenderness/Swelling Skin: No Rashes, No Breakdown, No Significant Lesion Neuro: Normal Gait, Normal Speech, Strength at 5/5 X4 Ext, Normal Tone, Sensation Intact Psych/Mental Status: Mental Status NL, Mood NL Results Lab Laboratory Tests 03/31/21 06:08 A/P-Cardiology Admission Diagnosis Chest pain Coronary artery disease Persistent atrial fibrillation Peripheral arterial disease Assessment/Plan Chest pain nonspecific etiology, had few episodes of chest pain on March 29, 2021, feeling better at this time, no active chest pain. Congestive heart failure, acute on chronic left ventricular systolic dysfunction, ejection fraction 10 to 15%, ischemic cardiomyopathy. I will decrease Lasix to 20 mg daily and monitor tolerance and response Coronary artery disease, last cardiac catheterization was carried out in September 2019 showing moderate disease, patent stent in the mid LAD, known to have Promus Premier 3 x 12 placed in 2014, continue to monitor Chronic persistent atrial fibrillation, heart rate is controlled. Refusing anticoagulation Small troponin elevation, chronic due to heart failure Recent pneumonia, continue to monitor Peripheral arterial disease, extensive disease, Peripheral angio of 07/10/17: ectatic abdominal aorta, aorto-iliac calcification, mod dz of renal arteries, diffuse mod disease of both sup fems, 90% ostial and prox stenosis of the L sup fem, single vessel (ant tibial) run off in both legs with 90% ostial stenoses of both ant tibs. Peripheral PCI on 07/10/17: balloon angioplasty of ostial L ant tib that reduced 90% ostial stenosis to less than 30% residual, balloon angioplasty and stenting (Absolute Pro 7 x 80 stent, dilated to 5 mm wilder) to the L prox sup fem that reduced stenosis form 90% to 0% residual - Seg pressures of 07/08/17 showed mild to mod PAD of the R leg (WALTER 0.85 on the R and TBI 0.74 on the R) and moderate to mod severe PAD of the L leg (WALTER 0.62 on the L and TBI 0.38 on the L); repeat seg pressures of 07/15/17 (post L-sided intervention) much improved (R WALTER 1.01, R TBI, 0.81; L WALTER 1.06, L TBI 0.82) Chronic right bundle branch block Mild bilateral carotid stenosis Debility Noncompliance with medication FERNANDO BERNARD MD Mar 31, 2021 11:08
[2021-03-31 16:36] VITALS: BP 123/57
[2021-03-31] MEDS: ENOXAPARIN 60 MG/0.6 ML (LOVENOX) SYR SC SCH (20:19)
[2021-04-01] VITALS: BP 127/60
[2021-04-01] MEDS: KCL 10 MEQ TAB (MICRO K) PO SCH (06:39)
[2021-04-01 08:00] VITALS: BP 127/55
[2021-04-01] MEDS: ASPIRIN 81 MG CHEW (CHILDREN'S ASA) PO SCH (09:00)
[2021-04-01] MEDS: FUROSEMIDE 20 MG (LASIX) TAB PO SCH (09:00)
[2021-04-01] MEDS: SPIRONOLACTONE 25 MG (ALDACTONE) TAB PO SCH (09:00)
--- NOTE | 2021-04-01 11:42 | Physical Therapy Daily Note ---
PT Daily Note-Current Subjective Patient is up in recliner. Agrees to PT. Mental Status Patient Orientation: Person, Time Attachments: Oxygen, Angela Catheter Transfers SCALE: Activities may be completed with or without assistive devices. 3-Dfqgfnvwpt-gflliaa completes the activity by him/herself with no assistance from a helper. 5-Set-up or Clean-up Assistance-helper sets up or cleans up; patient completes activity. [place] assists only prior to or following the activity. 4-Supervision or Touching Assistance-helper provides verbal cues and/or touching/steadying and/or contact guard assistance as patient completes activity. Assistance may be provided throughout the activity or intermittently. 3-Partial/Moderate Assistance-helper does LESS THAN HALF the effort. Shelby lifts, holds or supports trunk or limbs, but provides less than half the effort. 2-Substantial/Maximal Assistance-helper does MORE THAN HALF the effort. [place] lifts or holds trunk or limbs and provides more than half the effort. 6-Uujdzqjxn-uaagyf does ALL the effort. Patient does none of the effort to complete the activity. Or, the assistance of 2 or more helpers is required for the patient to complete the activity. If activity was not attempted, code reason: 7-Patient Refused. 9-Not Applicable-not attempted and the patient did not perform the activity before the current illness, exacerbation or injury. 10-Not Attempted due to Environmental Limitations-(lack of equipment, weather restraints, etc.). 88-Not Attempted due to Medical Conditions or Safety Concerns. Sit to Stand (QC): 2 Gait Training Does the Patient Walk?: Yes Distance: 25' x 2 Walk 10 feet (QC): 3 Walk 50 ft with 2 Turns(QC): 88 Walk 150 ft (QC): 88 Gait Assistive Device: Walker Platform (right) severe NBOS with occasional scissor gait sequence Exercises Seated Therapy Exercises: Ankle pumps, Long arc quads, Hip flexion Seated Reps: 12 Assessment Patient fatigues with minimal activity and remains up in recliner with needs met. Improve mobility on this date. Per report, right wrist brace can be removed and patient is WBAT right LE. Confirmed with RN. PT Long-Term Goals Prepress Specialist Goals PT Prepress Specialist Goals Time Frame: Apr 06, 2021 Roll Left & Right (QC): 3 Sit to Lying (QC): 3 Lying-Sitting on Side/Bed(QC): 3 Sit to Stand (QC): 3 Chair/Vgo-qu-Pjidj Xfer(QC): 3 Toilet Transfer (QC): 3 Walk 10 feet (QC): 3 PT Plan Treatment/Plan Treatment Plan: Continue Plan of Care Treatment Plan: Bed Mobility, Education, Functional Activity Arely, Functional Strength, Gait, Safety, Therapeutic Exercise, Transfers Treatment Duration: Apr 06, 2021 Frequency: 6 times per week Estimated Hrs Per Day: .25 hour per day Patient and/or Family Agrees t: Yes Time/GCodes Time In: 1050 Time Out: 1102 Total Billed Treatment Time: 12 Total Billed Treatment 1 visit GT 12 min ROOPA FORMAN PT Apr 01, 2021 11:42
--- NOTE | 2021-04-01 15:02 | Progress Note - Hospitalist ---
Subjective HPI/CC On Admission Date Seen by Provider: Apr 01, 2021 Time Seen by Provider: 08:45 Nimisha Hogan is an 89y/o F who presents with acute coronary syndrome. Pt was discharged on 03/20 from this hospital after being treated for a HAP. Went home on Omnicef. She was unsure of exactly what had happened yesterday but knows that she is currently in the hospital. She was able to state that yesterday she began feeling confused and weak but that was all that she remembered. Today she reports feeling fatigued. Pt's code status was discussed with her. She said that she did not want to be resuscitated if it came to that and to "let me go be with [facility]". Pt was A&Ox3 at this time. Change in code status discussed w/ patient's son and he was understanding of the pt's decision. Subjective/Events-last exam She is tired. She denies shortness of breath. She denies any pain. Objective Exam Vital Signs Vital Signs Date Time Temp Pulse Resp B/P (MAP) Pulse Ox O2 Delivery O2 Flow Rate FiO2 04/01/21 08:00 36.1 70 20 127/55 (79) 98 Nasal Cannula 3.00 Capillary Refill : Less Than 3 Seconds General Appearance: Chronically ill, Thin Respiratory: Lungs Clear, Normal Breath Sounds, No Respiratory Distress Cardiovascular: Regular Rate, Rhythm, No Edema, No Murmur Gastrointestinal: Normal Bowel Sounds, Non Tender, Soft Extremity: Normal Inspection, Non Tender, No Pedal Edema Neurologic/Psychiatric: Alert, Depressed Affect Skin: Normal Color, Warm/Dry Results/Procedures Lab Patient resulted labs reviewed. 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 Ischemic cardiomyopathy Poor prognosis Advanced age Goals of care discussion Cardiology consulted, appreciate assistance Planning for medical management Last EF 15-20% Refused AICD placement Repeat echo with EF 10-15% and grade II diastolic dysfunction Continue Lasix and spironolactone Hospice conversation had with 2 sons 03/25, Dr Acuna discussed situation with Charles 03/26; Ultimate goal is to get her home but we discussed that she may need NH stay as a stepping stone to home, spoke with family member Dr Nikita Molina ([phone]) 03/31 Continue PT/OT, will need to return to SNF for continued strengthening prior to return home based on her current progress Palliative care consulted, appreciate assistance LENA on CKD3a Likely cardiorenal Lasix as tolerates Creatinine stable AFib with RVR Continue diltiazem- switched to IR dose as she chews her medicines Refuses chronic anticoagulation DVT ppx: Lovenox Diagnosis/Problems Diagnosis/Problems (1) NSTEMI (non-ST elevation myocardial infarction) Status: Acute (2) Acute on chronic heart failure with reduced ejection fraction and diastolic dysfunction Status: Acute (3) Ischemic cardiomyopathy Status: Chronic (4) CAD (coronary artery disease) Status: Chronic (5) PAF (paroxysmal atrial fibrillation) Status: Chronic (6) Advanced age Status: Chronic (7) Poor prognosis Status: Acute (8) Acute kidney injury superimposed on chronic kidney disease Status: Acute (9) Stage 3a chronic kidney disease Status: Chronic ZACKERY DELACRUZ MD Apr 01, 2021 15:02
[2021-04-01 16:40] VITALS: BP 116/57
--- NOTE | 2021-04-01 18:48 | Progress Note - Cardiology ---
Cardiology SOAP Progress Note Subjective: Drowsy and somnolent Does not report cp or palp or shortness of breath or other symptoms Objective: I&O/Vital Signs 04/01/21 04/01/21 04/01/21 08:00 08:00 16:40 Temp 36.1 36.5 Pulse 70 62 Resp 20 18 B/P (MAP) 127/55 (79) 116/57 (76) Pulse Ox 98 99 O2 Delivery Nasal Cannula Nasal Cannula Nasal Cannula O2 Flow Rate 3.00 3.00 3.00 04/01/21 00:00 Intake Total 580 ml Output Total 1000 ml Balance -420 ml Weight (Pounds): 107 Weight (Ounces): 1.0 Weight (Calculated Kilograms): 48.877703 Constitutional: other (weak, thin, appears malnourished, somnolent, mildly confused) Respiratory: No accessory muscle use; other (Diminished air ently at right base and mid-zone, basal fine and coarse crackles) Cardiovascular: irregularly irregular, S1 and S2, systolic murmur (soft NICOLETTE at card base) Gastrointestional: No tender; soft; No guarding, No rebound; audible bowel sounds Extremities: swelling (mild, bilateral leg edema); No clubbing, No cyanosis Neurologic/Psychiatric: other (alert today, mildly confused, moves all limbs equally) Skin: other (areas of mild bruising at sites of blood draws and minor trauma) Results/Procedures: Labs Microbiology 03/24/21 MRSA Screen - Final, Complete MRSA not isolated 03/23/21 Blood Culture - Final, Complete No growth 03/23/21 Urine Culture - Final, Complete NO GROWTH Laboratory Tests 03/31/21 06:08 A/P: Assessment: Ac on chronic 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 - Last card cath of 09/13/19: mod CD, patent stent in mid LAD (Promus Premier 3 x 12, placed in 2014), marked impairment of LV systolic function with LVEF 20%, global hypokinesis, mild elev of LVEDP - Echo of 03/24/23: LVEF 10-15%, grade 2 diastolic dysfunction, mild MR, mild AI, R pleural effusion, PSP 40-45 mmHg Persistent A FIB with intermittent RVR (due to noncompliance with meds) - Currently heart rate is controlled - She refuses any oral anticoag (has refused on multiple occasions) Mild troponin elevation due to type 2 OR due to decompensated CHF Recent (mid March 2021) pneumonia Recent (January 2021) R hip repair after hip fracture from a non-syncopal fall Low body mass and weakness and cachetic appearance (worsening over 2019 and 2020) PAD - Peripheral angio of 07/10/17: ectatic abdominal aorta, aorto-iliac calcification, mod dz of renal arteries, diffuse mod disease of both sup fems, 90% ostial and prox stenosis of the L sup fem, single vessel (ant tibial) run off in both legs with 90% ostial stenoses of both ant tibs. Peripheral PCI on 07/10/17: balloon angioplasty of ostial L ant tib that reduced 90% ostial stenosis to less than 30% residual, balloon angioplasty and stenting (Absolute Pro 7 x 80 stent, dilated to 5 mm wilder) to the L prox sup fem that reduced stenosis form 90% to 0% residual - Seg pressures of 07/08/17 showed mild to mod PAD of the R leg (WALTER 0.85 on the R and TBI 0.74 on the R) and moderate to mod severe PAD of the L leg (WALTER 0.62 on the L and TBI 0.38 on the L); repeat seg pressures of 07/15/17 (post L-sided intervention) much improved (R WALTER 1.01, R TBI, 0.81; L WALTER 1.06, L TBI 0.82) Chronic RBBB 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 u/s of 02/15/16 H/o noncompliance with multiple medications and medical instructions Chronic, bilateral leg swelling and stasis dermatitis Plan: * Complex management due to multiple CV and other comorbidities and patient's noncompliance with meds and medical instructions * Continued current regimen * Previously not suitable for beta-stella or NICHOLE-inhib or ARB due to low bp * I again spoke with her two sons who were by the bedside and advised compliance with meds * Monitor labs Clinical Quality Measures Type of Care: Type of Care: Hospice Care (Home) DAWNA FOOTE MD FACP [facility] CCDS Apr 01, 2021 18:48
[2021-04-01] MEDS: ENOXAPARIN 60 MG/0.6 ML (LOVENOX) SYR SC SCH (19:50)
[2021-04-01 23:32] VITALS: BP 115/60
[2021-04-02] MEDS: KCL 10 MEQ TAB (MICRO K) PO SCH (05:59)
[2021-04-02 07:18] VITALS: BP 141/66
[2021-04-02] MEDS: ASPIRIN 81 MG CHEW (CHILDREN'S ASA) PO SCH (09:43)
[2021-04-02] MEDS: SPIRONOLACTONE 25 MG (ALDACTONE) TAB PO SCH (09:43)
[2021-04-02] MEDS: FUROSEMIDE 20 MG (LASIX) TAB PO SCH (09:43)
--- NOTE | 2021-04-02 11:12 | Progress Note - Cardiology ---
Cardiology SOAP Progress Note Subjective: Reports gen weakness and malaise and poor appetite No cp or palp or syncope No shortness of breath at rest No n/v/d Objective: I&O/Vital Signs 04/01/21 04/02/21 04/02/21 23:32 07:13 07:18 Temp 36.6 36.2 Pulse 61 66 Resp 22 20 B/P (MAP) 115/60 (78) 141/66 (91) Pulse Ox 96 99 O2 Delivery Nasal Cannula Nasal Cannula Nasal Cannula O2 Flow Rate 3.00 3.00 3.00 04/02/21 00:00 Intake Total 360 ml Output Total 395 ml Balance -35 ml Weight (Pounds): 107 Weight (Ounces): 1.0 Weight (Calculated Kilograms): 48.176221 Constitutional: other (weak, thin, appears malnourished, somnolent, appears alert and oriented today) Respiratory: No accessory muscle use; other (Diminished air ently at right base and mid-zone, basal fine and coarse crackles) Cardiovascular: irregularly irregular, S1 and S2, systolic murmur (soft NICOLETTE at card base) Gastrointestional: No tender; soft; No guarding, No rebound; audible bowel sounds Extremities: swelling (mild, bilateral leg edema); No clubbing, No cyanosis Neurologic/Psychiatric: other (moves all limbs equally) Skin: other (areas of mild bruising at sites of blood draws and minor trauma) Results/Procedures: Labs Microbiology 03/24/21 MRSA Screen - Final, Complete MRSA not isolated 03/23/21 Blood Culture - Final, Complete No growth 03/23/21 Urine Culture - Final, Complete NO GROWTH A/P: Assessment: Ac on chronic 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 - Last card cath of 09/13/19: mod CD, patent stent in mid LAD (Promus Premier 3 x 12, placed in 2014), marked impairment of LV systolic function with LVEF 20%, global hypokinesis, mild elev of LVEDP - Echo of 03/24/23: LVEF 10-15%, grade 2 diastolic dysfunction, mild MR, mild AI, R pleural effusion, PSP 40-45 mmHg Persistent A FIB with intermittent RVR (due to noncompliance with meds) - Currently heart rate is controlled - She refuses any oral anticoag (has refused on multiple occasions) Mild troponin elevation due to type 2 OR due to decompensated CHF Recent (mid March 2021) pneumonia Recent (January 2021) R hip repair after hip fracture from a non-syncopal fall Low body mass and weakness and cachetic appearance (worsening over 2019 and 2020) PAD - Peripheral angio of 07/10/17: ectatic abdominal aorta, aorto-iliac calcification, mod dz of renal arteries, diffuse mod disease of both sup fems, 90% ostial and prox stenosis of the L sup fem, single vessel (ant tibial) run off in both legs with 90% ostial stenoses of both ant tibs. Peripheral PCI on 07/10/17: balloon angioplasty of ostial L ant tib that reduced 90% ostial stenosis to less than 30% residual, balloon angioplasty and stenting (Absolute Pro 7 x 80 stent, dilated to 5 mm wilder) to the L prox sup fem that reduced s tenosis form 90% to 0% residual - Seg pressures of 07/08/17 showed mild to mod PAD of the R leg (WALTER 0.85 on the R and TBI 0.74 on the R) and moderate to mod severe PAD of the L leg (WALTER 0.62 on the L and TBI 0.38 on the L); repeat seg pressures of 07/15/17 (post L-sided intervention) much improved (R WALTER 1.01, R TBI, 0.81; L WATLER 1.06, L TBI 0.82) Chronic RBBB 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 u/s of 02/15/16 H/o noncompliance with multiple medications and medical instructions Chronic, bilateral leg swelling and stasis dermatitis Plan: * Complex management due to multiple CV and other comorbidities and patient's noncompliance with meds and medical instructions * Continue current regimen * Previously not suitable for beta-stella or NICHOLE-inhib or ARB due to low bp * I again spoke with her today and advised compliance with meds * Monitor labs Clinical Quality Measures Type of Care: Type of Care: Hospice Care (Home) DAWNA FOOTE MD [facility] Apr 02, 2021 11:12
--- NOTE | 2021-04-02 11:42 | Physical Therapy Daily Note ---
PT Daily Note-Current Subjective Patient reluctantly agrees to PT. Mental Status Patient Orientation: Person, Time Attachments: Oxygen, Angela Catheter Transfers SCALE: Activities may be completed with or without assistive devices. 9-Tobwqakjxc-jhgptkq completes the activity by him/herself with no assistance from a helper. 5-Set-up or Clean-up Assistance-helper sets up or cleans up; patient completes activity. [place] assists only prior to or following the activity. 4-Supervision or Touching Assistance-helper provides verbal cues and/or touching/steadying and/or contact guard assistance as patient completes activity. Assistance may be provided throughout the activity or intermittently. 3-Partial/Moderate Assistance-helper does LESS THAN HALF the effort. [place] lifts, holds or supports trunk or limbs, but provides less than half the effort. 2-Substantial/Maximal Assistance-helper does MORE THAN HALF the effort. [place] lifts or holds trunk or limbs and provides more than half the effort. 8-Uqudlcfwz-qyccfd does ALL the effort. Patient does none of the effort to complete the activity. Or, the assistance of 2 or more helpers is required for the patient to complete the activity. If activity was not attempted, code reason: 7-Patient Refused. 9-Not Applicable-not attempted and the patient did not perform the activity before the current illness, exacerbation or injury. 10-Not Attempted due to Environmental Limitations-(lack of equipment, weather restraints, etc.). 88-Not Attempted due to Medical Conditions or Safety Concerns. Sit to Stand (QC): 2 Gait Training Does the Patient Walk?: Yes Distance: 25' x 2 Walk 10 feet (QC): 2 Gait Assistive Device: Walker Platform (right) PT to advance FWW due to patient weakness/occasional scissor gait sequence. Exercises Seated Therapy Exercises: Ankle pumps, Long arc quads Seated Reps: 12 Assessment Patient tolerated increase in activity and remains up in recliner. Continue weakness noted. Tolerates minimal activity then fatigues. PT Animal Treatment Investigator Goals Animal Treatment Investigator Goals PT Half-Way Goals Time Frame: Apr 06, 2021 Roll Left & Right (QC): 3 Sit to Lying (QC): 3 Lying-Sitting on Side/Bed(QC): 3 Sit to Stand (QC): 3 Chair/Cjp-gu-Zxxtp Xfer(QC): 3 Toilet Transfer (QC): 3 Walk 10 feet (QC): 3 PT Plan Treatment/Plan Treatment Plan: Continue Plan of Care Treatment Plan: Bed Mobility, Education, Functional Activity Arely, Functional Strength, Gait, Safety, Therapeutic Exercise, Transfers Treatment Duration: Apr 06, 2021 Frequency: 6 times per week Estimated Hrs Per Day: .25 hour per day Patient and/or Family Agrees t: Yes Time/GCodes Time In: 1055 Time Out: 1106 Total Billed Treatment Time: 11 Total Billed Treatment 1 visit GT 11 min ROOPA FORMAN PT Apr 02, 2021 11:42
--- NOTE | 2021-04-02 13:24 | Progress Note - Hospitalist ---
Subjective HPI/CC On Admission Date Seen by Provider: Apr 02, 2021 Time Seen by Provider: 08:30 Nimisha Hogan is an 89y/o F who presents with acute coronary syndrome. Pt was discharged on 03/20 from this hospital after being treated for a HAP. Went home on Omnicef. She was unsure of exactly what had happened yesterday but knows that she is currently in the hospital. She was able to state that yesterday she began feeling confused and weak but that was all that she remembered. Today she reports feeling fatigued. Pt's code status was discussed with her. She said that she did not want to be resuscitated if it came to that and to "let me go be with [facility]". Pt was A&Ox3 at this time. Change in code status discussed w/ patient's son and he was understanding of the pt's decision. Subjective/Events-last exam She is doing the same. She has no complaints. Objective Exam Vital Signs Vital Signs Date Time Temp Pulse Resp B/P (MAP) Pulse Ox O2 Delivery O2 Flow Rate FiO2 04/02/21 08:00 Nasal Cannula 3.00 04/02/21 07:18 36.2 66 20 141/66 (91) 99 Capillary Refill : Less Than 3 Seconds General Appearance: No Apparent Distress, Chronically ill Respiratory: Lungs Clear, No Respiratory Distress Cardiovascular: Regular Rate, Rhythm, No Murmur Gastrointestinal: Normal Bowel Sounds, Soft Extremity: Normal Inspection, Non Tender Neurologic/Psychiatric: Alert, Motor Weakness Skin: Normal Color, Warm/Dry Results/Procedures Lab Patient resulted labs reviewed. 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 Ischemic cardiomyopathy Poor prognosis Advanced age Goals of care discussion Cardiology consulted, appreciate assistance Planning for medical management Last EF 15-20% Refused AICD placement Repeat echo with EF 10-15% and grade II diastolic dysfunction Continue Lasix and spironolactone Hospice conversation had with 2 sons 03/25, Dr Acuna discussed situation with Charles 03/26; Ultimate goal is to get her home but we discussed that she may need NH stay as a stepping stone to home, spoke with family member Dr Nikita Molina ([phone]) 03/31 Continue PT/OT, will need to return to SNF for continued strengthening prior to return home based on her current progress Palliative care consulted, appreciate assistance Awaiting placement LENA on CKD3a Likely cardiorenal Lasix as tolerates Creatinine stable AFib with RVR Continue diltiazem- switched to IR dose as she chews her medicines Refuses chronic anticoagulation DVT ppx: Lovenox Diagnosis/Problems Diagnosis/Problems (1) NSTEMI (non-ST elevation myocardial infarction) Status: Acute (2) Acute on chronic heart failure with reduced ejection fraction and diastolic dysfunction Status: Acute (3) Ischemic cardiomyopathy Status: Chronic (4) CAD (coronary artery disease) Status: Chronic (5) PAF (paroxysmal atrial fibrillation) Status: Chronic (6) Advanced age Status: Chronic (7) Poor prognosis Status: Acute (8) Acute kidney injury superimposed on chronic kidney disease Status: Acute (9) Stage 3a chronic kidney disease Status: Chronic ZACKERY DELACRUZ MD Apr 02, 2021 13:23
[2021-04-02 16:14] VITALS: BP 130/61
[2021-04-02] MEDS ORDERED: polyethylene glycoL POWDER 17 GM (MIRALAX) PACK PO PRN (17:30)
[2021-04-02] MEDS ORDERED: SIMETHICONE 80 MG (MYLICON) CHEW PO PRN (17:45)
[2021-04-02] MEDS ORDERED: ANTACID SUSP 30 ML UDC (MYLANTA) PO PRN (17:45)
[2021-04-02] MEDS ORDERED: ACETAMINOPHEN 325 MG TABLET PO PRN (17:45)
[2021-04-02] MEDS ORDERED: ENOXAPARIN 40 MG/0.4 ML (LOVENOX) SYR SC SCH (21:00)
[2021-04-02 23:09] VITALS: BP 135/56
[2021-04-03] MEDS: KCL 10 MEQ TAB (MICRO K) PO SCH (06:07)
[2021-04-03] MEDS ORDERED: DILT240C91 PO (07:23)
[2021-04-03] MEDS ORDERED: FURO20TA4 PO (07:23)
[2021-04-03 07:39] VITALS: BP 130/63
[2021-04-03 08:01] LABS: BASOPHILS % (AUTO) 0 % (0-10); EOSINOPHILS % (AUTO) 0 % (0-10); HEMATOCRIT 24 % (35-52); HEMOGLOBIN 7.3 g/dL (11.5-16.0); LYMPHOCYTES # (AUTO) 0.8 10^3/uL (1.0-4.0); LYMPHOCYTES % (AUTO) 6 % (12-44); MEAN CORPUSCULAR HEMOGLOBIN 32 pg (25-34); MEAN CORPUSCULAR HGB CONC 30 g/dL (32-36); MEAN CORPUSCULAR VOLUME 107 fL (80-99); MEAN PLATELET VOLUME 9.5 fL (9.0-12.2); MONOCYTES # (AUTO) 1.3 10^3/uL (0.0-1.0); MONOCYTES % (AUTO) 10 % (0-12); NEUTROPHILS # (AUTO) 10.4 10^3/uL (1.8-7.8); NEUTROPHILS % (AUTO) 83 % (42-75); PLATELET COUNT 246 10^3/uL (130-400); WHITE BLOOD COUNT 12.7 10^3/uL (4.3-11.0)
[2021-04-03] MEDS: SPIRONOLACTONE 25 MG (ALDACTONE) TAB PO SCH (08:02)
[2021-04-03] MEDS: ASPIRIN 81 MG CHEW (CHILDREN'S ASA) PO SCH (08:02)
[2021-04-03] MEDS: FUROSEMIDE 20 MG (LASIX) TAB PO SCH (08:03)
[2021-04-03 08:27] LABS: BAND NEUTROPHILS 0 %; BASOPHILS % (MANUAL) 1 %; EOSINOPHILS % (MANUAL) 0 %; LYMPHOCYTES % (MANUAL) 4 %; MONOCYTES % (MANUAL) 6 %; NEUTROPHILS % (MANUAL) 89 %
[2021-04-03 08:28] LABS: ANISOCYTOSIS SLIGHT; CALCIUM 8.9 MG/DL (8.5-10.1); CREATININE SERUM 0.96 MG/DL (0.60-1.30); POTASSIUM 5.7 MMOL/L (3.6-5.0)
[2021-04-03] MEDS ORDERED: FUROSEMIDE 40 MG/4 ML INJ (LASIX) IVP NR (10:30)
--- NOTE | 2021-04-03 10:45 | Progress Note - Cardiology ---
Cardiology SOAP Progress Note Subjective: Somnolent and confused this am. Difficult to awaken. Does not answer questions Objective: I&O/Vital Signs 04/02/21 04/03/21 23:09 07:39 Temp 36.3 36.1 Pulse 66 73 Resp 16 18 B/P (MAP) 135/56 (82) 130/63 (85) Pulse Ox 99 92 O2 Delivery Nasal Cannula Nasal Cannula O2 Flow Rate 3.00 3.00 04/03/21 00:00 Intake Total 730 ml Output Total 400 ml Balance 330 ml Weight (Pounds): 107 Weight (Ounces): 1.0 Weight (Calculated Kilograms): 48.814907 Constitutional: other (Somnolent and confused this am. Difficult to awaken. Does not answer questions) Respiratory: No accessory muscle use; other (Diminished air ently at right base and mid-zone, basal fine and coarse crackles) Cardiovascular: irregularly irregular, S1 and S2, systolic murmur (soft NICOLETTE at card base) Gastrointestional: No tender; soft; No guarding, No rebound; audible bowel sounds Extremities: swelling (mild to mod, bilateral leg edema); No clubbing, No cyanosis Neurologic/Psychiatric: other (moves all limbs equally) Skin: other (areas of mild bruising at sites of blood draws and minor trauma) Results/Procedures: Labs Laboratory Tests 04/03/21 07:55: White Blood Count 12.7H, Red Blood Count 2.28L, Hemoglobin 7.3#L, Hematocrit 24L , Mean Corpuscular Volume 107H, Mean Corpuscular Hemoglobin 32, Mean Corpuscular Hemoglobin Concent 30L, Red Cell Distribution Width 15.1H, Platelet Count 246, Mean Platelet Volume 9.5, Immature Granulocyte % (Auto) 1, Neutrophils (%) (Auto) 83H, Lymphocytes (%) (Auto) 6L, Monocytes (%) (Auto) 10, Eosinophils (%) (Auto) 0, Basophils (%) (Auto) 0, Neutrophils # (Auto) 10.4H, Lymphocytes # (Auto) 0.8L, Monocytes # (Auto) 1.3H, Eosinophils # (Auto) 0.0, Basophils # (Auto) 0.0, Immature Granulocyte # (Auto) 0.1, Neutrophils % (Manual) 89, Lymphocytes % (Manual) 4, Monocytes % (Manual) 6, Eosinophils % (Manual) 0, Basophils % (Manual) 1, Band Neutrophils 0, Anisocytosis SLIGHT, Macrocytosis SLIGHT, Sodium Level 138, Potassium Level 5.7H, Chloride Level 93L, Carbon Dioxide Level 36H, Anion Gap 9, Blood Urea Nitrogen 39H, Creatinine 0.96, Estimat Glomerular Filtration Rate 55, BUN/Creatinine Ratio 41, Glucose Level 116H, Calcium Level 8.9 Microbiology 03/24/21 MRSA Screen - Final, Complete MRSA not isolated 03/23/21 Blood Culture - Final, Complete No growth 03/23/21 Urine Culture - Final, Complete NO GROWTH Laboratory Tests 04/03/21 07:55 A/P: Assessment: New onset of anemia and hyperkalemia on 04/03/21: GI bleed suspected Ac on chronic 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 - Last card cath of 09/13/19: mod CD, patent stent in mid LAD (Promus Premier 3 x 12, placed in 2014), marked impairment of LV systolic function with LVEF 20%, global hypokinesis, mild elev of LVEDP - Echo of 03/24/23: LVEF 10-15%, grade 2 diastolic dysfunction, mild MR, mild AI, R pleural effusion, PSP 40-45 mmHg Persistent A FIB with intermittent RVR (due to noncompliance with meds) - Currently heart rate is controlled - She refuses any oral anticoag (has refused on multiple occasions) Mild troponin elevation due to type 2 [place] due to decompensated CHF Recent (mid March 2021) pneumonia Recent (January 2021) R hip repair after hip fracture from a non-syncopal fall Low body mass and weakness and cachetic appearance (worsening over 2019 and 2020) PAD - Peripheral angio of 07/10/17: ectatic abdominal aorta, aorto-iliac calc ification, mod dz of renal arteries, diffuse mod disease of both sup fems, 90% ostial and prox stenosis of the L sup fem, single vessel (ant tibial) run off in both legs with 90% ostial stenoses of both ant tibs. Peripheral PCI on 07/10/17: balloon angioplasty of ostial L ant tib that reduced 90% ostial stenosis to less than 30% residual, balloon angioplasty and stenting (Absolute Pro 7 x 80 stent, dilated to 5 mm wilder) to the L prox sup fem that reduced stenosis form 90% to 0% residual - Seg pressures of 07/08/17 showed mild to mod PAD of the R leg (WALTER 0.85 on the R and TBI 0.74 on the R) and moderate to mod severe PAD of the L leg (WALTER 0.62 on the L and TBI 0.38 on the L); repeat seg pressures of 07/15/17 (post L-sided intervention) much improved (R WALTER 1.01, R TBI, 0.81; L WALTER 1.06, L TBI 0.82) Chronic RBBB 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 u/s of 02/15/16 H/o noncompliance with multiple medications and medical instructions Chronic, bilateral leg swelling and stasis dermatitis Plan: * Objective worsening of condition today (see above). Complex management due to multiple CV and other comorbidities and patient's noncompliance with meds and medical instructions * We recommend blood transfusion for treatment of anemia, to be followed by iv furosemide to avoid fluid overload. We recommend monitoring of K levels. Hospitalist service to monitor this * Previously not suitable for beta-stella or NICHOLE-inhib or ARB due to low bp * Monitor labs Clinical Quality Measures Type of Care: Type of Care: Hospice Care (Home) DAWNA FOOTE MD [facility] CCDS Apr 03, 2021 10:45
--- NOTE | 2021-04-03 10:56 | Progress Note - Hospitalist ---
Subjective HPI/CC On Admission Date Seen by Provider: Apr 03, 2021 Time Seen by Provider: 09:05 Nimisha Hogan is an 89y/o F who presents with acute coronary syndrome. Pt was discharged on 03/20 from this hospital after being treated for a HAP. Went home on Omnicef. She was unsure of exactly what had happened yesterday but knows that she is currently in the hospital. She was able to state that yesterday she began feeling confused and weak but that was all that she remembered. Today she reports feeling fatigued. Pt's code status was discussed with her. She said that she did not want to be resuscitated if it came to that and to "let me go be with [facility]". Pt was A&Ox3 at this time. Change in code status discussed w/ patient's son and he was understanding of the pt's decision. Subjective/Events-last exam She was sleeping upon my arrival. She easily awakens. She denies any pain. She has no complaints or concerns. Objective Exam Vital Signs Vital Signs Date Time Temp Pulse Resp B/P (MAP) Pulse Ox O2 Delivery O2 Flow Rate FiO2 04/03/21 07:39 36.1 73 18 130/63 (85) 92 Nasal Cannula 3.00 Capillary Refill : Less Than 3 Seconds General Appearance: Chronically ill, Cachetic Respiratory: Lungs Clear, Normal Breath Sounds, No Respiratory Distress Cardiovascular: Regular Rate, Rhythm, No Murmur Gastrointestinal: Normal Bowel Sounds, Non Tender, Soft Extremity: Normal Inspection, Pedal Edema Neurologic/Psychiatric: Alert, Depressed Affect Skin: Normal Color, Warm/Dry Results/Procedures Lab Laboratory Tests 04/03/21 07:55 Patient resulted labs reviewed. 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 Ischemic cardiomyopathy Poor prognosis Advanced age Cardiology consulted, appreciate assistance Continue medical management Previous EF 15-20%, refused AICD placement Repeat echo with EF 10-15% and grade II diastolic dysfunction Continue Lasix and spironolactone Hospice conversation had with 2 sons 03/25, Dr Acuna discussed situation with Charles 03/26; Ultimate goal is to get her home but we discussed that she may need NH stay as a stepping stone to home, spoke with family member Dr Nikita Molina ([phone]) 03/31 Continue PT/OT, will need to return to SNF for continued strengthening prior to return home based on her current progress Palliative care consulted, appreciate assistance LENA on CKD3a Likely cardiorenal Lasix as tolerates Creatinine stable AFib with RVR Continue diltiazem- switched to IR dose as she chews her medicines Refuses chronic anticoagulation DVT ppx: held due to possible GI bleeding Diagnosis/Problems Diagnosis/Problems (1) Anemia Status: Acute (2) NSTEMI (non-ST elevation myocardial infarction) Status: Acute (3) Acute on chronic heart failure with reduced ejection fraction and diastolic dysfunction Status: Acute (4) Ischemic cardiomyopathy Status: Chronic (5) CAD (coronary artery disease) Status: Chronic (6) PAF (paroxysmal atrial fibrillation) Status: Chronic (7) Advanced age Status: Chronic (8) Poor prognosis Status: Acute (9) Acute kidney injury superimposed on chronic kidney disease Status: Acute (10) Stage 3a chronic kidney disease Status: Chronic ZACKERY DELACRUZ MD Apr 03, 2021 10:56
[2021-04-03 11:29] VITALS: BP 148/70
[2021-04-03 12:37] VITALS: BP 148/70
[2021-04-03 12:52] VITALS: BP 138/69
--- NOTE | 2021-04-03 13:10 | Physical Therapy Progress Note ---
Therapy Progress Note FARM FIELD MANAGER checked on pt approx [phone], RN notified FARM FIELD MANAGER that pt hemoglobin is low and will be receiving blood transfusion soon. RN suggested to hold therapies today. FARM FIELD MANAGER checked on pt and pt was lethargic. FARM FIELD MANAGER will check back on pt later. REGGIE ROLAND FARM FIELD MANAGER Apr 03, 2021 13:09
[2021-04-03] MEDS ORDERED: SALIVA STIMULANT MOUTH SPRAY (BIOTENE) 1.5 OZ MM PRN (14:30)
[2021-04-03 15:42] VITALS: BP 139/62
[2021-04-03 23:31] VITALS: BP 125/58
[2021-04-04 06:37] LABS: BASOPHILS % (AUTO) 0 % (0-10); EOSINOPHILS % (AUTO) 0 % (0-10); HEMATOCRIT 26 % (35-52); HEMOGLOBIN 8.2 g/dL (11.5-16.0); LYMPHOCYTES # (AUTO) 0.7 10^3/uL (1.0-4.0); LYMPHOCYTES % (AUTO) 5 % (12-44); MEAN CORPUSCULAR HEMOGLOBIN 32 pg (25-34); MEAN CORPUSCULAR HGB CONC 31 g/dL (32-36); MEAN CORPUSCULAR VOLUME 103 fL (80-99); MONOCYTES # (AUTO) 1.1 10^3/uL (0.0-1.0); MONOCYTES % (AUTO) 9 % (0-12); NEUTROPHILS # (AUTO) 10.8 10^3/uL (1.8-7.8); NEUTROPHILS % (AUTO) 85 % (42-75); PLATELET COUNT 222 10^3/uL (130-400); WHITE BLOOD COUNT 12.8 10^3/uL (4.3-11.0)
[2021-04-04 06:44] LABS: CALCIUM 8.7 MG/DL (8.5-10.1); CREATININE SERUM 0.89 MG/DL (0.60-1.30); POTASSIUM 5.1 MMOL/L (3.6-5.0)
[2021-04-04 07:40] VITALS: BP 107/46
[2021-04-04] MEDS: FUROSEMIDE 20 MG (LASIX) TAB PO SCH (09:06)
[2021-04-04] MEDS: ASPIRIN 81 MG CHEW (CHILDREN'S ASA) PO SCH (09:06)
--- NOTE | 2021-04-04 11:21 | Physical Therapy Daily Note ---
PT Daily Note-Current Subjective Patient is more alert and talkative on this date. Agrees to PT. Transfers SCALE: Activities may be completed with or without assistive devices. 4-Bouxqksykd-ewlsthd completes the activity by him/herself with no assistance from a helper. 5-Set-up or Clean-up Assistance-helper sets up or cleans up; patient completes activity. [place] assists only prior to or following the activity. 4-Supervision or Touching Assistance-helper provides verbal cues and/or touching/steadying and/or contact guard assistance as patient completes activi ty. Assistance may be provided throughout the activity or intermittently. 3-Partial/Moderate Assistance-helper does LESS THAN HALF the effort. [place] lifts, holds or supports trunk or limbs, but provides less than half the effort. 2-Substantial/Maximal Assistance-helper does MORE THAN HALF the effort. [place] lifts or holds trunk or limbs and provides more than half the effort. 8-Bkirjlvpb-vhsnxj does ALL the effort. Patient does none of the effort to complete the activity. Or, the assistance of 2 or more helpers is required for the patient to complete the activity. If activity was not attempted, code reason: 7-Patient Refused. 9-Not Applicable-not attempted and the patient did not perform the activity before the current illness, exacerbation or injury. 10-Not Attempted due to Environmental Limitations-(lack of equipment, weather restraints, etc.). 88-Not Attempted due to Medical Conditions or Safety Concerns. Lying to Sitting/Side of Bed(Q: 2 Sit to Stand (QC): 2 Chair/Yso-kw-Tntxz Xfer(QC): 2 Gait Training Does the Patient Walk?: Yes Distance: 25' x 2 Walk 10 feet (QC): 2 Gait Assistive Device: Walker Platform (right) PT assist to advance right platform FWW/occasional scissor gait sequence Exercises Seated Therapy Exercises: Ankle pumps, Long arc quads, Hip flexion Seated Reps: 15 Assessment Patient requires time to complete all functional tasks. Patient improving slowly with gross motor skills. Up in recliner with needs met. PT Fdc Goals Warper Tender Goals PT Warper Tender Goals Time Frame: Apr 06, 2021 Roll Left & Right (QC): 3 Sit to Lying (QC): 3 Lying-Sitting on Side/Bed(QC): 3 Sit to Stand (QC): 3 Chair/Ltd-bx-Akmpv Xfer(QC): 3 Toilet Transfer (QC): 3 Walk 10 feet (QC): 3 PT Plan Treatment/Plan Treatment Plan: Continue Plan of Care Treatment Plan: Bed Mobility, Education, Functional Activity Arely, Functional Strength, Gait, Safety, Therapeutic Exercise, Transfers Treatment Duration: Apr 06, 2021 Frequency: 6 times per week Estimated Hrs Per Day: .25 hour per day Patient and/or Family Agrees t: Yes Time/GCodes Time In: 1036 Time Out: 1059 Total Billed Treatment Time: 23 Total Billed Treatment 1 visit GT 15 min EX 8 min ROOPA FORMAN PT Apr 04, 2021 11:21
--- NOTE | 2021-04-04 11:21 | Progress Note - Cardiology ---
Cardiology SOAP Progress Note Subjective: Gen malaise and weakness No cp or palp or syncope No shortness of breath at rest No n/v/d Poor appetite Objective: I&O/Vital Signs 04/03/21 04/04/21 23:31 07:40 Temp 36.4 36.4 Pulse 71 56 Resp 24 18 B/P (MAP) 125/58 (80) 107/46 (66) Pulse Ox 94 97 O2 Delivery Nasal Cannula Nasal Cannula O2 Flow Rate 3.00 3.00 04/04/21 00:00 Intake Total 290 ml Output Total 780 ml Balance -490 ml Weight (Pounds): 107 Weight (Ounces): 1.0 Weight (Calculated Kilograms): 48.563532 Constitutional: other (More alert today, answers most questions appropriately, appears confused at times) Respiratory: No accessory muscle use; other (Diminished air ently at right base and mid-zone, basal fine and coarse crackles) Cardiovascular: irregularly irregular, S1 and S2, systolic murmur (soft NICOLETTE at card base) Gastrointestional: No tender; soft; No guarding, No rebound; audible bowel sounds Extremities: swelling (mild to mod, bilateral leg edema); No clubbing, No cyanosis Neurologic/Psychiatric: other (moves all limbs equally) Skin: other (areas of mild bruising at sites of blood draws and minor trauma) Results/Procedures: Labs Laboratory Tests 04/04/21 05:21: White Blood Count 12.8H, Red Blood Count 2.55L, Hemoglobin 8.2L, Hematocrit 26L, Mean Corpuscular Volume 103H, Mean Corpuscular Hemoglobin 32, Mean Corpuscular Hemoglobin Concent 31L, Red Cell Distribution Width 15.8H, Platelet Count 222, Mean Platelet Volume 10.0, Immature Granulocyte % (Auto) 1, Neutrophils (%) (Auto) 85H, Lymphocytes (%) (Auto) 5L, Monocytes (%) (Auto) 9, Eosinophils (%) (Auto) 0, Basophils (%) (Auto) 0, Neutrophils # (Auto) 10.8H, Lymphocytes # (Auto) 0.7L, Monocytes # (Auto) 1.1H, Eosinophils # (Auto) 0.0, Basophils # (Auto) 0.0, Immature Granulocyte # (Auto) 0.1 04/04/21 05:41: Sodium Level 139, Potassium Level 5.1H, Chloride Level 93L, Carbon Dioxide Level 37H, Anion Gap 9, Blood Urea Nitrogen 40H, Creatinine 0.89, Estimat Glomerular Filtration Rate 60, BUN/Creatinine Ratio 45, Glucose Level 98, Calcium Level 8.7 Microbiology 03/24/21 MRSA Screen - Final, Complete MRSA not isolated 03/23/21 Blood Culture - Final, Complete No growth 03/23/21 Urine Culture - Final, Complete NO GROWTH Laboratory Tests 04/03/21 07:55 04/04/21 05:21 04/04/21 05:41 A/P: Assessment: New onset of anemia and hyperkalemia on 04/03/21: GI bleed suspected Ac on chronic 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 - Last card cath of 09/13/19: mod CD, patent stent in mid LAD (Promus Premier 3 x 12, placed in 2014), marked impairment of LV systolic function with LVEF 20%, global hypokinesis, mild elev of LVEDP - Echo of 03/24/23: LVEF 10-15%, grade 2 diastolic dysfunction, mild MR, mild AI, R pleural effusion, PSP 40-45 mmHg Persistent A FIB with intermittent RVR (due to noncompliance with meds) - Currently heart rate is controlled - She refuses any oral anticoag (has refused on multiple occasions) Mild troponin elevation due to type 2 [place] due to decompensated CHF Recent (mid March 2021) pneumonia Recent (January 2021) R hip repair after hip fracture from a non-syncopal fall Low body mass and weakness and cachetic appearance (worsening over 2019 and ) PAD - Peripheral angio of 07/10/17: ectatic abdominal aorta, aorto-iliac calcification, mod dz of renal arteries, diffuse mod disease of both sup fems, 90% ostial and prox stenosis of the L sup fem, single vessel (ant tibial) run off in both legs with 90% ostial stenoses of both ant tibs. Peripheral PCI on 07/10/17: balloon angioplasty of ostial L ant tib that reduced 90% ostial stenosis to less than 30% residual, balloon angioplasty and stenting (Absolute Pro 7 x 80 stent, dilated to 5 mm wilder) to the L prox sup fem that reduced stenosis form 90% to 0% residual - Seg pressures of 07/08/17 showed mild to mod PAD of the R leg (WALTER 0.85 on the R and TBI 0.74 on the R) and moderate to mod severe PAD of the L leg (WALTER 0.62 on the L and TBI 0.38 on the L); repeat seg pressures of 07/15/17 (post L-sided intervention) much improved (R WALTER 1.01, R TBI, 0.81; L WALTER 1.06, L TBI 0.82) Chronic RBBB 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
--- NOTE | 2021-04-04 12:21 | Progress Note - Hospitalist ---
Subjective HPI/CC On Admission Date Seen by Provider: Apr 04, 2021 Time Seen by Provider: 08:45 Nimisha Hogan is an 89y/o F who presents with acute coronary syndrome. Pt was discharged on 03/20 from this hospital after being treated for a HAP. Went home on Omnicef. She was unsure of exactly what had happened yesterday but knows that she is currently in the hospital. She was able to state that yesterday she began feeling confused and weak but that was all that she remembered. Today she reports feeling fatigued. Pt's code status was discussed with her. She said that she did not want to be resuscitated if it came to that and to "let me go be with [facility]". Pt was A&Ox3 at this time. Change in code status discussed w/ patient's son and he was understanding of the pt's decision. Subjective/Events-last exam She is sitting up in bed eating breakfast. She says she has some lower back pain and wants to be moved in bed. She denies abdominal pain. She is not short of breath. She has not had any blood loss. Objective Exam Vital Signs Vital Signs Date Time Temp Pulse Resp B/P (MAP) Pulse Ox O2 Delivery O2 Flow Rate FiO2 04/04/21 07:40 36.4 56 18 107/46 (66) 97 Nasal Cannula 3.00 Capillary Refill : Less Than 3 Seconds General Appearance: Chronically ill, Cachetic Respiratory: No Respiratory Distress, Wheezing Cardiovascular: Regular Rate, Rhythm, No Murmur Gastrointestinal: Normal Bowel Sounds, Non Tender, Soft Extremity: Normal Inspection, Pedal Edema Neurologic/Psychiatric: Alert, Depressed Affect Skin: Warm/Dry, Pallor Results/Procedures Lab Laboratory Tests 04/04/21 05:21 04/04/21 05:41 Patient resulted labs reviewed. 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 Ischemic cardiomyopathy Poor prognosis Advanced age Cardiology consulted, appreciate assistance Continue medical management Previous EF 15-20%, refused AICD placement Repeat echo with EF 10-15% and grade II diastolic dysfunction Continue Lasix and spironolactone Hospice conversation had with 2 sons 03/25, Dr Acuna discussed situation with Charles 03/26; Ultimate goal is to get her home but we discussed that she may need NH stay as a stepping stone to home, spoke with family member Dr Nikita Molina ([phone]) 03/31 Continue PT/OT, will need to return to SNF for continued strengthening prior to return home based on her current progress Palliative care consulted, appreciate assistance LENA on CKD3a Likely cardiorenal Lasix as tolerates Creatinine stable AFib with RVR Continue diltiazem- switched to IR dose as she chews her medicines Refuses chronic anticoagulation DVT ppx: held due to possible GI bleeding Diagnosis/Problems Diagnosis/Problems (1) Anemia Status: Acute (2) NSTEMI (non-ST elevation myocardial infarction) Status: Acute (3) Acute on chronic heart failure with reduced ejection fraction and diastolic dysfunction Status: Acute (4) Ischemic cardiomyopathy Status: Chronic (5) CAD (coronary artery disease) Status: Chronic (6) PAF (paroxysmal atrial fibrillation) Status: Chronic (7) Advanced age Status: Chronic (8) Poor prognosis Status: Acute (9) Acute kidney injury superimposed on chronic kidney disease Status: Acute (10) Stage 3a chronic kidney disease Status: Chronic ZACKERY DELACRUZ MD Apr 04, 2021 12:21
[2021-04-04 16:00] VITALS: BP 143/65
[2021-04-04 23:14] VITALS: BP 153/70
[2021-04-05] VITALS (7 sets, daily range): BP systolic 122–142; BP diastolic 57–71
[2021-04-05 06:54] LABS: BASOPHILS % (AUTO) 0 % (0-10); EOSINOPHILS # (AUTO) 0.1 10^3/uL (0.0-0.3); EOSINOPHILS % (AUTO) 2 % (0-10); HEMATOCRIT 24 % (35-52); HEMOGLOBIN 7.2 g/dL (11.5-16.0); LYMPHOCYTES # (AUTO) 0.8 10^3/uL (1.0-4.0); LYMPHOCYTES % (AUTO) 10 % (12-44); MEAN CORPUSCULAR HEMOGLOBIN 32 pg (25-34); MEAN CORPUSCULAR HGB CONC 31 g/dL (32-36); MEAN CORPUSCULAR VOLUME 104 fL (80-99); MEAN PLATELET VOLUME 9.6 fL (9.0-12.2); MONOCYTES # (AUTO) 0.6 10^3/uL (0.0-1.0); MONOCYTES % (AUTO) 8 % (0-12); NEUTROPHILS # (AUTO) 5.8 10^3/uL (1.8-7.8); NEUTROPHILS % (AUTO) 79 % (42-75); PLATELET COUNT 215 10^3/uL (130-400); WHITE BLOOD COUNT 7.4 10^3/uL (4.3-11.0)
[2021-04-05 07:12] LABS: POTASSIUM 4.8 MMOL/L (3.6-5.0)
[2021-04-05 07:13] LABS: CALCIUM 8.6 MG/DL (8.5-10.1)
[2021-04-05 07:17] LABS: CREATININE SERUM 0.89 MG/DL (0.60-1.30)
[2021-04-05] MEDS ORDERED: FUROSEMIDE 40 MG/4 ML INJ (LASIX) IVP ONE (07:30)
[2021-04-05 08:31] LABS: INR 1.1 (0.8-1.4)
[2021-04-05] MEDS: ASPIRIN 81 MG CHEW (CHILDREN'S ASA) PO SCH (09:01)
[2021-04-05] MEDS ORDERED: NS IV 500 ML 500 ML ONE (09:44)
[2021-04-05] MEDS ORDERED: NS IV 500 ML 500 ML IV SCH (09:45)
[2021-04-05] MEDS ORDERED: NS 100 ML (IVPB) BAG IV ONE (09:45)
--- NOTE | 2021-04-05 09:45 | Physical Therapy Daily Note ---
PT Daily Note-Current Subjective Patient agrees to PT. Mental Status Attachments: Oxygen Transfers SCALE: Activities may be completed with or without assistive devices. 1-Ffhtdfnrwh-nlpvacl completes the activity by him/herself with no assistance from a helper. 5-Set-up or Clean-up Assistance-helper sets up or cleans up; patient completes activity. [place] assists only prior to or following the activity. 4-Supervision or Touching Assistance-helper provides verbal cues and/or touching/steadying and/or contact guard assistance as patient completes activity. Assistance may be provided throughout the activity or intermittently. 3-Partial/Moderate Assistance-helper does LESS THAN HALF the effort. [place] lifts, holds or supports trunk or limbs, but provides less than half the effort. 2-Substantial/Maximal Assistance-helper does MORE THAN HALF the effort. [place] lifts or holds trunk or limbs and provides more than half the effort. 7-Wcblykpnc-hjykog does ALL the effort. Patient does none of the effort to complete the activity. Or, the assistance of 2 or more helpers is required for the patient to complete the activity. If activity was not attempted, code reason: 7-Patient Refused. 9-Not Applicable-not attempted and the patient did not perform the activity before the current illness, exacerbation or injury. 10-Not Attempted due to Environmental Limitations-(lack of equipment, weather restraints, etc.). 88-Not Attempted due to Medical Conditions or Safety Concerns. Lying to Sitting/Side of Bed(Q: 2 Sit to Stand (QC): 2 Chair/Yhc-tr-Kvojq Xfer(QC): 2 patient leaning to right with PT correct Gait Training Distance: 25' x 2 Walk 10 feet (QC): 3 Gait Assistive Device: Walker Platform NBOS/scissor gait occasionally Exercises Seated Therapy Exercises: Long arc quads Seated Reps: 12 Assessment Patient up in recliner with needs met. Continues to display weakness and impaired mobility PT Skilled Nursing Goals Skilled Nursing Goals PT Skilled Nursing Goals Time Frame: Apr 06, 2021 Roll Left & Right (QC): 3 Sit to Lying (QC): 3 Lying-Sitting on Side/Bed(QC): 3 Sit to Stand (QC): 3 Chair/Nqx-ye-Wepul Xfer(QC): 3 Toilet Transfer (QC): 3 Walk 10 feet (QC): 3 PT Plan Treatment/Plan Treatment Plan: Continue Plan of Care Treatment Plan: Bed Mobility, Education, Functional Activity Arely, Functional Strength, Gait, Safety, Therapeutic Exercise, Transfers Treatment Duration: Apr 06, 2021 Frequency: 6 times per week Estimated Hrs Per Day: .25 hour per day Patient and/or Family Agrees t: Yes Time/GCodes Time In: 815 Time Out: 829 Total Billed Treatment Time: 14 Total Billed Treatment 1 visit GT 14 min ROOPA FORMAN PT Apr 05, 2021 09:45
--- NOTE | 2021-04-05 10:02 | Diagnostic Imaging Report ---
PROCEDURE: CT abdomen and pelvis without contrast. TECHNIQUE: Multiple contiguous axial images were obtained through the abdomen and pelvis without the use of intravenous contrast. Auto Exposure Controls were utilized during the CT exam to meet ALARA standards for radiation dose reduction. INDICATION: Anemia. Abdominal pain. Along the anterior aspect of the bladder there is a sizable rounded area of increased density. This measures 8.5 x 11.9 x 11.1 cm in maximum AP transverse and longitudinal dimensions. This finding was not present on the prior CT abdomen/pelvis exam of 07/14/2018. Consequently, this finding may well represent an area of acute hemorrhage/hematoma formation. There is no sign of active bleeding but this exam is limited in evaluation for active bleeding due to the absence of intravenous contrast. There is no acute abnormality of the abdomen or pelvis noted otherwise. The previous exam did note areas of mild dilatation of the abdominal aorta. Those findings are again evident and do not seem to have changed significantly. In the interval since the prior study, right lower lobe pneumonia/atelectasis and a sizable right pleural effusion have developed. The effusion measures approximately 5.8 cm in maximum depth. The lungs where visualized are otherwise generally clear. The cardiomegaly and the pectus excavatum deformity seen previously are unchanged. The bone windows show no sign of a fracture or of a destructive lesion. In the interval since the previous study however the patient has undergone a surgical procedure involving the right hip. There is now an intramedullary bella and orthopedic fixation screws securing an intertrochanteric fracture of the right femur. IMPRESSION: 1. In the interval since the previous study, a sizable rounded area of increased density has developed in the pelvis just anterior to the bladder. This is most likely secondary to hemorrhage/hematoma formation. There is no evidence for active bleeding at this time but if further evaluation is desired, then a follow-up exam with intravenous contrast would be recommended. 2. There is no acute abnormality of the abdomen or pelvis noted otherwise. 3. Right lower lobe pneumonia/atelectasis and a sizable right pleural effusion have developed. 4. There has been an interval surgical procedure involving the right femur. These results were called to Dr. Claire Bryant prior to this dictation. Dictated by: Dictated on workstation # [id number]
--- NOTE | 2021-04-05 12:47 | Progress Note - Hospitalist ---
Subjective HPI/CC On Admission Date Seen by Provider: Apr 05, 2021 Time Seen by Provider: 09:30 Nimisha Hogan is an 89y/o F who presents with acute coronary syndrome. Pt was discharged on 03/20 from this hospital after being treated for a HAP. Went home on Omnicef. She was unsure of exactly what had happened yesterday but knows that she is currently in the hospital. She was able to state that yesterday she began feeling confused and weak but that was all that she remembered. Today she reports feeling fatigued. Pt's code status was discussed with her. She said that she did not want to be resuscitated if it came to that and to "let me go be with [facility]". Pt was A&Ox3 at this time. Change in code status discussed w/ patient's son and he was understanding of the pt's decision. Subjective/Events-last exam She is sitting in her bedside chair. She denies pain. She says her abdomen is distended. Objective Exam Vital Signs Vital Signs Date Time Temp Pulse Resp B/P (MAP) Pulse Ox O2 Delivery O2 Flow Rate FiO2 04/05/21 12:05 35.9 76 16 129/62 04/05/21 08:00 98 Nasal Cannula 3.00 Capillary Refill : Less Than 3 Seconds General Appearance: Chronically ill, Cachetic Respiratory: Lungs Clear, Normal Breath Sounds, No Respiratory Distress Cardiovascular: Regular Rate, Rhythm, No Murmur Gastrointestinal: Normal Bowel Sounds, Soft, Distended Extremity: Normal Inspection, Pedal Edema Neurologic/Psychiatric: Alert, Normal Mood/Affect, Motor Weakness Skin: Normal Color, Warm/Dry Results/Procedures Lab Laboratory Tests 04/05/21 05:10 Patient resulted labs reviewed. Imaging: Reviewed Imaging Report Assessment/Plan Assessment and Plan Assess & Plan/Chief Complaint Intraperitoneal hematoma Acute blood loss anemia Occult blood ordered, no bowel movements Hgb dropped again today CT Abdomen showed intraperitoneal hematoma s/p 1 unit PRBC Transfuse 1 unit PRBC today Lasix with transfusion Goal Hgb >8 Consult surgery, Dr. 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 Ischemic cardiomyopathy Poor prognosis Advanced age Cardiology consulted, appreciate assistance Continue medical management Previous EF 15-20%, refused AICD placement Repeat echo with EF 10-15% and grade II diastolic dysfunction Continue Lasix and spironolactone Hospice conversation had with 2 sons 8/23, Dr Acuna discussed situation with Charles 03/26; Ultimate goal is to get her home but we discussed that she may need NH stay as a stepping stone to home, spoke with family member Dr Nikita Molina ([phone]) 03/31 Continue PT/OT, will need to return to SNF for continued strengthening prior to return home based on her current progress Palliative care consulted, appreciate assistance LENA on CKD3a Likely cardiorenal Lasix as tolerates Creatinine stable AFib with RVR Continue diltiazem- switched to IR dose as she chews her medicines Refuses chronic anticoagulation DVT ppx: held due to possible GI bleeding Diagnosis/Problems Diagnosis/Problems (1) Intraperitoneal hematoma Status: Acute (2) Anemia Status: Acute (3) NSTEMI (non-ST elevation myocardial infarction) Status: Acute (4) Acute on chronic heart failure with reduced ejection fraction and diastolic dysfunction Status: Acute (5) Ischemic cardiomyopathy Status: Chronic (6) CAD (coronary artery disease) Status: Chronic (7) PAF (paroxysmal atrial fibrillation) Status: Chronic (8) Advanced age Status: Chronic (9) Poor prognosis Status: Acute (10) Acute kidney injury superimposed on chronic kidney disease Status: Acute (11) Stage 3a chronic kidney disease Status: Chronic ZACKERY DELACRUZ MD Apr 05, 2021 12:47
[2021-04-05 17:23] LABS: HEMOGLOBIN 9.9 g/dL (11.5-16.0)
--- NOTE | 2021-04-05 18:48 | CONSULTATION REPORT ---
DATE OF SERVICE: 04/05/2021 ADMITTING PHYSICIAN: Dr. Bryant. HISTORY OF PRESENT ILLNESS: The patient is an 89-year-old female with multiple medical problems including significant coronary artery disease with the development of cardiomyopathy as well as a history of myocardial infarction and heart failure with an ejection fraction of approximately 10% to 15%. She presented with acute coronary syndrome and was medically treated by the recommendations of cardiology due to her multiple risk factors and poor functional status. Since that time, she has been medically managed. She has been on anticoagulation with the Lovenox since being admitted. The patient did slowly improve over time; however, the patient did develop abdominal discomfort and a slight distention in the suprapubic region. She was also found to have a significant decrease in her hemoglobin. A CT scan of the abdomen and pelvis was performed, which did show fluid collection near the liver as well as in the suprapubic region anterior to the bladder, most likely secondary to hematoma. The patient's vital signs are stable and she is receiving packed red blood cell transfusions. Her pain is also under control. PAST MEDICAL HISTORY: Coronary artery disease, hypertension, hypercholesterolemia, history of myocardial infarction, cardiomyopathy, chronic constipation, and glaucoma. PAST SURGICAL HISTORY: Cardiac catheterization, multiple stent placement and hysterectomy. ALLERGIES: AMOXICILLIN. MEDICATIONS: Aspirin 81 mg daily, cefdinir 300 mg b.i.d., enalapril 2.5 mg b.i.d., furosemide 20 mg daily, metoprolol 25 mg daily, magnesium hydroxide p.r.n., mirtazapine 15 mg daily, and potassium 10 mEq daily. SOCIAL HISTORY: Negative smoke and negative alcohol. FAMILY HISTORY: Noncontributory. REVIEW OF SYSTEMS: This is a thin and frail-appearing female, who does respond to voice and touch; however, does not answer majority of questions appropriately. At this time, it does not appear that she is experiencing any shortness of breath or difficulty in breathing. No chest pain, palpitations or diaphoresis. No nausea or vomiting. She has had a bowel movement since admission. No red blood per rectum and no dark tarry stools. No known fevers or chills or any recent inadvertent weight loss. All other review of systems are negative. PHYSICAL EXAMINATION: VITAL SIGNS: Temperature is 37.3, blood pressure 133/60, pulse 66, respirations 18, and pulse ox 100% on 2 liters nasal cannula. CHEST: Few scattered rales bilaterally. HEART: Regular and no murmurs. EXTREMITIES: No lower extremity edema and negative Homans sign. HEENT: No scleral icterus. NECK: No cervical lymphadenopathy. ABDOMEN: Soft and there is slight suprapubic distention and some discomfort upon palpation; however, there is no abdominal compartment syndrome and no peritoneal signs. SKIN: Warm and dry. LABORATORY DATA: WBC 7.4, hemoglobin 9.9, hematocrit 32, and platelets 215. BUN 42 and creatinine 0.89. Coagulation studies are normal. ASSESSMENT AND PLAN: An 89-year-old female with a spontaneous intraperitoneal bleed. The differential is large; however, may be due to a greater omental bleed or possible hepatic bleed; however, may also be due to a pelvic source. She is in poor medical condition with a very low ejection fraction and our recommendation is to proceed with conservative management and no surgical intervention. As of now, she is stable and she does not have any peritoneal signs or any abdominal compartment syndrome and we will recommend continued monitoring of her hemoglobin and hematocrit with adequate pain control and continue to monitor her clinical status and allow for resolution over time. We will continue to monitor her hemoglobin and hematocrit in hopes of the likelihood of bleeding to stop on its own and to rule out any active bleeding and if this is the case, then we will allow for slow resolution by allowing reabsorption of the hematoma over the time. She is also currently a do not resuscitate. Job ID: [id number] DocumentID: [id number] Dictated Date: 04/05/2021 18:28:18 Divisional Merchandising Manager Date: 04/05/2021 18:48:13 Dictated By: RESHMA LY MD
[2021-04-05] MEDS: SENNA W/DOCUSATE (SENOKOT S) TABLET PO SCH (21:49)
[2021-04-05] MEDS: DOCUSATE SODIUM 100 MG (COLACE) CAP PO SCH (21:49)
[2021-04-06 07:09] LABS: HEMOGLOBIN 9.2 g/dL (11.5-16.0)
[2021-04-06 07:16] LABS: CALCIUM 8.8 MG/DL (8.5-10.1)
[2021-04-06 07:20] LABS: CREATININE SERUM 0.78 MG/DL (0.60-1.30)
[2021-04-06 08:00] VITALS: BP 123/72
[2021-04-06] MEDS: SENNA W/DOCUSATE (SENOKOT S) TABLET PO SCH ×2 (09:42→22:12)
[2021-04-06] MEDS: ASPIRIN 81 MG CHEW (CHILDREN'S ASA) PO SCH (09:42)
[2021-04-06] MEDS: DOCUSATE SODIUM 100 MG (COLACE) CAP PO SCH ×2 (09:42→22:12)
--- NOTE | 2021-04-06 09:43 | Physical Therapy Daily Note ---
PT Daily Note-Current Subjective Pt supine in bed finishing drinking ensure upon arrival to room, agreeable to PT session. She reports pain in (R) hip, rates at 7/10. Appearance Following session, pt up in recliner with call light, tray table and phone within reach. All needs met Mental Status Patient Orientation: Person Attachments: Oxygen (2L) Transfers SCALE: Activities may be completed with or without assistive devices. 7-Dxrnuyfzag-lfrgwym completes the activity by him/herself with no assistance from a helper. 5-Set-up or Clean-up Assistance-helper sets up or cleans up; patient completes activity. [place] assists only prior to or following the activity. 4-Supervision or Touching Assistance-helper provides verbal cues and/or touchin g/steadying and/or contact guard assistance as patient completes activity. Assistance may be provided throughout the activity or intermittently. 3-Partial/Moderate Assistance-helper does LESS THAN HALF the effort. [place] lifts, holds or supports trunk or limbs, but provides less than half the effort. 2-Substantial/Maximal Assistance-helper does MORE THAN HALF the effort. [place] lifts or holds trunk or limbs and provides more than half the effort. 2-Jjiewecnh-odmemp does ALL the effort. Patient does none of the effort to complete the activity. Or, the assistance of 2 or more helpers is required for the patient to complete the activity. If activity was not attempted, code reason: 7-Patient Refused. 9-Not Applicable-not attempted and the patient did not perform the activity before the current illness, exacerbation or injury. 10-Not Attempted due to Environmental Limitations-(lack of equipment, weather restraints, etc.). 88-Not Attempted due to Medical Conditions or Safety Concerns. Roll Left & Right (QC): 2 Lying to Sitting/Side of Bed(Q: 2 Sit to Stand (QC): 2 Chair/Wwz-za-Aouui Xfer(QC): 2 Able to initiate moving BLE towards EOB, unable to achieve upright seated position without max A. Gait Training Distance: 5' Gait Assistive Device: FWW Pt ambulates to recliner chair approx 5' with use of FWW with platform on RUE. She is retropulsive and has a R sided lean in standing. Max A for all mobility this date. Assessment Current Status: Fair Progress Pt with notable weakness and debility, continues to require maximal assistance with all mobility. PT Residential Goals Residential Goals PT Residential Goals Time Frame: Apr 06, 2021 Roll Left & Right (QC): 3 Sit to Lying (QC): 3 Lying-Sitting on Side/Bed(QC): 3 Sit to Stand (QC): 3 Chair/Caz-we-Ioexg Xfer(QC): 3 Toilet Transfer (QC): 3 Walk 10 feet (QC): 3 PT Plan Problem List Problem List: Activity Tolerance, Functional Strength, Safety, Balance, Gait, Transfer, Bed Mobility, ROM Treatment/Plan Treatment Plan: Continue Plan of Care Treatment Plan: Bed Mobility, Education, Functional Activity Arely, Functional Strength, Gait, Safety, Therapeutic Exercise, Transfers Treatment Duration: Apr 06, 2021 Frequency: 6 times per week Estimated Hrs Per Day: .25 hour per day Patient and/or Family Agrees t: Yes Time/GCodes Time In: 850 Time Out: 902 Total Billed Treatment 1 visit FA (12') JUNIOR EVERETT PT Apr 06, 2021 09:43
--- NOTE | 2021-04-06 10:41 | Progress Note ---
Subjective Date Seen by a Provider: Apr 06, 2021 Time Seen by a Provider: 09:50 Subjective/Events-last exam Patient seen with Dr. Nielsen. Patient reports having some abdominal pain of the lower abdomen. Tolerating diet and ambulating. Denies any N/V. Objective Exam Vital Signs Date Time Temp Pulse Resp B/P (MAP) Pulse Ox O2 Delivery O2 Flow Rate FiO2 04/06/21 08:00 35.1 60 18 123/72 (89) 98 Nasal Cannula 2.00 04/05/21 23:30 36.4 67 16 123/58 (79) 97 Nasal Cannula 2.00 04/05/21 21:20 Nasal Cannula 2.00 04/05/21 15:48 37.3 66 18 133/60 (84) 100 Nasal Cannula 2.00 04/05/21 15:00 35.5 74 18 128/57 100 Nasal Cannula 2.00 04/05/21 12:55 35.9 68 18 130/57 98 3.00 04/05/21 12:30 35.9 70 18 122/71 95 3.00 04/05/21 12:05 35.9 76 16 129/62 I & O 04/06/21 07:00 Intake Total 1120 ml Balance 1120 ml Capillary Refill : Less Than 3 Seconds General Appearance: No Apparent Distress, WD/WN Neck: Full Range of Motion, Normal Inspection Respiratory: No Accessory Muscle Use, No Respiratory Distress Cardiovascular: Regular Rate, Rhythm, No Edema Gastrointestinal: normal bowel sounds, soft, tenderness (Lower abdomen) Extremity: Normal Inspection, Normal Range of Motion Neurologic/Psychiatric: Alert, Oriented x3 Skin: Normal Color, Warm/Dry Results Lab Laboratory Tests 04/05/21 17:15: Hemoglobin 9.9#L, Hematocrit 32L 04/06/21 06:47: Hemoglobin 9.2L, Hematocrit 30L, Sodium Level 140, Potassium Level 5.0, Chloride Level 96L, Carbon Dioxide Level 34H, Anion Gap 10, Blood Urea Nitrogen 37H, Creatinine 0.78, Estimat Glomerular Filtration Rate 70, BUN/Creatinine Ratio 47, Glucose Level 97, Calcium Level 8.8 Microbiology 03/24/21 MRSA Screen - Final, Complete MRSA not isolated 03/23/21 Blood Culture - Final, Complete No growth 03/23/21 Urine Culture - Final, Complete NO GROWTH Assessment/Plan Assessment/Plan Assess & Plan/Chief Complaint An 89 year old female with a spontaneous intraperitoneal bleed VSS Hgb 9.2 Continue to monitor H&H - transfuse as needed Pain medication as needed Patient is a DNR and poor medical condition - wound not recommend surgical intervention TAVARES DEWITT FLOWER MAKER Apr 06, 2021 10:41
[2021-04-06] MEDS ORDERED: FUROSEMIDE 40 MG/4 ML INJ (LASIX) ONE (12:07)
[2021-04-06] MEDS ORDERED: FUROSEMIDE 40 MG/4 ML INJ (LASIX) IVP ONE (12:15)
[2021-04-06 12:29] VITALS: BP 132/65
--- NOTE | 2021-04-06 12:39 | Progress Note - Hospitalist ---
Subjective HPI/CC On Admission Date Seen by Provider: Apr 06, 2021 Time Seen by Provider: 09:40 Nimisha Hogan is an 89y/o F who presents with acute coronary syndrome. Pt was discharged on 03/20 from this hospital after being treated for a HAP. Went home on Omnicef. She was unsure of exactly what had happened yesterday but knows that she is currently in the hospital. She was able to state that yesterday she began feeling confused and weak but that was all that she remembered. Today she reports feeling fatigued. Pt's code status was discussed with her. She said that she did not want to be resuscitated if it came to that and to "let me go be with [facility]". Pt was A&Ox3 at this time. Change in code status discussed w/ patient's son and he was understanding of the pt's decision. Subjective/Events-last exam She is not feeling much better today. She reports some abdominal discomfort. She denies any trouble breathing. She had a bottle and a half of Ensure this morning. Objective Exam Vital Signs Vital Signs Date Time Temp Pulse Resp B/P (MAP) Pulse Ox O2 Delivery O2 Flow Rate FiO2 04/06/21 12:29 35.8 72 24 132/65 (87) 99 OxyMask 2.00 Capillary Refill : Less Than 3 Seconds General Appearance: Chronically ill, Cachetic Respiratory: No Respiratory Distress, Decreased Breath Sounds Cardiovascular: Regular Rate, Rhythm, No Murmur Gastrointestinal: Normal Bowel Sounds, Distended; No Guarding Extremity: No Inflammation; Pedal Edema Neurologic/Psychiatric: Alert, Depressed Affect, Motor Weakness Skin: Warm/Dry, Pallor Results/Procedures Lab Laboratory Tests 04/05/21 17:15 04/06/21 06:47 Patient resulted labs reviewed. Imaging: Reviewed Imaging Report Assessment/Plan Assessment and Plan Assess & Plan/Chief Complaint Intraperitoneal hematoma Acute blood loss anemia Occult blood ordered, no bowel movements Hgb stable today CT Abdomen showed intraperitoneal hematoma s/p 2 units PRBC Goal Hgb >8 Surgery following, Dr. 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 Ischemic cardiomyopathy Poor prognosis Advanced age Cardiology consulted, appreciate assistance Continue medical management Previous EF 15-20%, refused AICD placement Repeat echo with EF 10-15% and grade II diastolic dysfunction Continue Lasix and spironolactone Hospice conversation had with 2 sons 03/25, Dr Acuna discussed situation with Charles 03/26; Ultimate goal is to get her home but we discussed that she may need NH stay as a stepping stone to home, spoke with family member Dr Nikita Molina ([phone]) 03/31 Continue PT/OT, will need to return to SNF for continued strengthening prior to return home based on her current progress Palliative care consulted, appreciate assistance LENA on CKD3a Likely cardiorenal Lasix as tolerates Creatinine stable AFib with RVR Continue diltiazem- switched to IR dose as she chews her medicines Refuses chronic anticoagulation DVT ppx: held due to major active bleeding Diagnosis/Problems Diagnosis/Problems (1) Intraperitoneal hematoma Status: Acute (2) Anemia Status: Acute (3) NSTEMI (non-ST elevation myocardial infarction) Status: Acute (4) Acute on chronic heart failure with reduced ejection fraction and diastolic dysfunction Status: Acute (5) Ischemic cardiomyopathy Status: Chronic (6) CAD (coronary artery disease) Status: Chronic (7) PAF (paroxysmal atrial fibrillation) Status: Chronic (8) Advanced age Status: Chronic (9) Poor prognosis Status: Acute (10) Acute kidney injury superimposed on chronic kidney disease Status: Acute (11) Stage 3a chronic kidney disease Status: Chronic ZACKERY DELACRUZ MD Apr 06, 2021 12:39
--- NOTE | 2021-04-06 13:50 | Progress Note - Cardiology ---
Cardiology SOAP Progress Note Subjective: Worsening consciousness Currently not verbally responsive Has had worsening or respiration today Objective: I&O/Vital Signs 04/06/21 04/06/21 08:00 12:29 Temp 35.1 35.8 Pulse 60 72 Resp 18 24 B/P (MAP) 123/72 (89) 132/65 (87) Pulse Ox 98 99 O2 Delivery Nasal Cannula OxyMask O2 Flow Rate 2.00 2.00 04/06/21 00:00 Intake Total 920 ml Balance 920 ml Weight (Pounds): 107 Weight (Ounces): 1.0 Weight (Calculated Kilograms): 48.672556 Constitutional: No AAO x 3; other (verbally unresponsived today) Respiratory: No accessory muscle use; other (Diminished air ently at right base and mid-zone, basal fine and coarse crackles) Cardiovascular: irregularly irregular, S1 and S2, systolic murmur (soft NICOLETTE at card base) Gastrointestional: No tender; soft; No guarding, No rebound; audible bowel sounds Extremities: swelling (mild to mod, bilateral leg edema); No clubbing, No cyanosis Neurologic/Psychiatric: other (moves all limbs equally) Skin: other (areas of mild bruising at sites of blood draws and minor trauma) Results/Procedures: Labs Laboratory Tests 04/05/21 17:15: Hemoglobin 9.9#L, Hematocrit 32L 04/06/21 06:47: Hemoglobin 9.2L, Hematocrit 30L, Sodium Level 140, Potassium Level 5.0, Chloride Level 96L, Carbon Dioxide Level 34H, Anion Gap 10, Blood Urea Nitrogen 37H, Creatinine 0.78, Estimat Glomerular Filtration Rate 70, BUN/Creatinine Ratio 47, Glucose Level 97, Calcium Level 8.8 Microbiology 03/24/21 MRSA Screen - Final, Complete MRSA not isolated 03/23/21 Blood Culture - Final, Complete No growth 03/23/21 Urine Culture - Final, Complete NO GROWTH Laboratory Tests 04/05/21 05:10 04/05/21 17:15 04/06/21 06:47 A/P: Assessment: Anemia requiring blood transfusion - Pelvic hematoma on CT on abd CT of 04/05/21 Ac on chronic resp failure due to conditions noted below - Right lower lobe pneumonia/atelectasis and a sizable right pleural effusion on CT abd [id number]-[id number] 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 - Last card cath of 09/13/19: mod CD, patent stent in mid LAD (Promus Premier 3 x 12, placed in 2014), marked impairment of LV systolic function with LVEF 20%, global hypokinesis, mild elev of LVEDP - Echo of 03/24/23: LVEF 10-15%, grade 2 diastolic dysfunction, mild MR, mild AI, R pleural effusion, PSP 40-45 mmHg Persistent A FIB with intermittent RVR (due to noncompliance with meds) - Currently heart rate is controlled - She refuses any oral anticoag (has refused on multiple occasions) Mild troponin elevation due to type 2 HI due to decompensated CHF Recent (January 2021) R hip repair after hip fracture from a non-syncopal fall Low body mass and weakness and cachetic appearance (worsening over 2019 and 2020) PAD - Peripheral angio of 07/10/17: ectatic abdominal aorta, aorto-iliac calcification, mod dz of renal arteries, diffuse mod disease of both sup fems, 90% ostial and prox stenosis of the L sup fem, single vessel (ant tibial) run off in both legs with 90% ostial stenoses of both ant tibs. Peripheral PCI on 07/10/17: balloon angioplasty of ostial L ant tib that reduced 90% ostial stenosis to less than 30% residual, balloon angioplasty and stenting (Absolute Pro 7 x 80 stent, dilated to 5 mm wilder) to the L prox sup fem that reduced stenosis form 90% to 0% residual - Seg pressures of 07/08/17 showed mild to mod PAD of the R leg (WALTER 0.85 on the R and TBI 0.74 on the R) and moderate to mod severe PAD of the L leg (WALTER 0.62 on the L and TBI 0.38 on the L); repeat seg pressures of 07/15/17 (post L-sided intervention) much improved (R WALTER 1.01, R TBI, 0.81; L WALTER 1.06, L TBI 0.82) Chronic RBBB 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 u/s of 02/15/16 H/o noncompliance with multiple medications and medical instructions Chronic, bilateral leg swelling and stasis dermatitis Plan: * Progressively deteriorating clinical status * Complex management due to multiple CV and other comorbidities and patient's noncompliance with meds and medical instructions * Previously not suitable for beta-stella or NICHOLE-inhib or ARB due to low bp Clinical Quality Measures Type of Care: Type of Care: Hospice Care (Home) DAWNA FOOTE MD FACP [facility] Apr 06, 2021 13:50
[2021-04-06 16:14] VITALS: BP 102/59
[2021-04-06] MEDS ORDERED: morphine INJ 4 MG/ML 1 ML (VIAL/SYRINGE) IVP PRN (19:30)
[2021-04-06 23:30] VITALS: BP 106/54
[2021-04-07 06:30] LABS: POTASSIUM 4.2 MMOL/L (3.6-5.0)
[2021-04-07 06:32] LABS: CALCIUM 8.3 MG/DL (8.5-10.1)
[2021-04-07 06:36] LABS: CREATININE SERUM 0.72 MG/DL (0.60-1.30)
[2021-04-07 07:57] VITALS: BP 125/58
[2021-04-07] MEDS: DOCUSATE SODIUM 100 MG (COLACE) CAP PO SCH ×2 (08:49→21:23)
[2021-04-07] MEDS: ASPIRIN 81 MG CHEW (CHILDREN'S ASA) PO SCH (08:49)
[2021-04-07] MEDS: SENNA W/DOCUSATE (SENOKOT S) TABLET PO SCH ×2 (08:49→21:23)
--- NOTE | 2021-04-07 10:06 | Progress Note ---
Subjective Date Seen by a Provider: Apr 07, 2021 Time Seen by a Provider: 09:40 Subjective/Events-last exam Patient seen with Dr. Nielsen. Patient reports doing ok. Tolerating diet with no N/V. Denies any abdominal pain. Objective Exam Vital Signs Date Time Temp Pulse Resp B/P (MAP) Pulse Ox O2 Delivery O2 Flow Rate FiO2 04/07/21 07:57 36.1 81 18 125/58 (80) 98 Nasal Cannula 04/06/21 23:30 36.5 62 18 106/54 (71) 93 Nasal Cannula 2.00 04/06/21 21:00 Nasal Cannula 2.00 04/06/21 16:14 36.7 63 20 102/59 (73) 97 OxyMask 2.00 04/06/21 14:37 Nasal Cannula 2.00 04/06/21 12:29 35.8 72 24 132/65 (87) 99 OxyMask 2.00 I & O 04/07/21 07:00 Intake Total 1027 ml Output Total 251 ml Balance 776 ml Capillary Refill : Less Than 3 Seconds General Appearance: No Apparent Distress, WD/WN Neck: Normal Inspection, Non Tender Respiratory: No Accessory Muscle Use, No Respiratory Distress Cardiovascular: Regular Rate, Rhythm, No Edema Gastrointestinal: normal bowel sounds, non tender, soft Extremity: Normal Inspection, Normal Range of Motion Neurologic/Psychiatric: Alert, Oriented x3 Skin: Normal Color, Warm/Dry Results Lab Laboratory Tests 04/07/21 06:08: Hemoglobin 9.0L, Hematocrit 30L, Sodium Level 139, Potassium Level 4.2, Chloride Level 97L, Carbon Dioxide Level 34H, Anion Gap 8, Blood Urea Nitrogen 36H, Creatinine 0.72, Estimat Glomerular Filtration Rate 76, BUN/Creatinine Ratio 50, Glucose Level 89, Calcium Level 8.3L Microbiology 03/24/21 MRSA Screen - Final, Complete MRSA not isolated 03/23/21 Blood Culture - Final, Complete No growth 03/23/21 Urine Culture - Final, Complete NO GROWTH Assessment/Plan Assessment/Plan Assess & Plan/Chief Complaint An 89 year old female with a spontaneous intraperitoneal bleed VSS Hgb 9.0 - stable Continue to monitor H&H - transfuse as needed Pain medication as needed Patient is a DNR and poor medical condition - wound not recommend surgical intervention TAVARES DEWITT VESSEL WELDER Apr 07, 2021 10:06
--- NOTE | 2021-04-07 12:17 | Progress Note - Hospitalist ---
Subjective HPI/CC On Admission Date Seen by Provider: Apr 07, 2021 Time Seen by Provider: 11:05 Nimisha Hogan is an 89y/o F who presents with acute coronary syndrome. Pt was discharged on 03/20 from this hospital after being treated for a HAP. Went home on Omnicef. She was unsure of exactly what had happened yesterday but knows that she is currently in the hospital. She was able to state that yesterday she began feeling confused and weak but that was all that she remembered. Today she reports feeling fatigued. Pt's code status was discussed with her. She said that she did not want to be resuscitated if it came to that and to "let me go be with [facility]". Pt was A&Ox3 at this time. Change in code status discussed w/ patient's son and he was understanding of the pt's decision. Subjective/Events-last exam She is feeling a bit better today. She denies any pain. She denies any shortness of breath. She was able to eat breakfast. She says she slept well. Yesterday she spoke with her nurse about not wanting to continue pursuing aggressive care. We discussed this and she would like to pursue hospice. She does not want any more blood transfusions. She says that she conveyed this information to her son Nicko. We did reach out to discuss this with him but there is no answer. Objective Exam Vital Signs Vital Signs Date Time Temp Pulse Resp B/P (MAP) Pulse Ox O2 Delivery O2 Flow Rate FiO2 04/07/21 08:00 Nasal Cannula 2.00 04/07/21 07:57 36.1 81 18 125/58 (80) 98 Capillary Refill : Less Than 3 Seconds General Appearance: No Apparent Distress, Chronically ill, Cachetic Respiratory: No Respiratory Distress, Decreased Breath Sounds Cardiovascular: Regular Rate, Rhythm, Systolic Murmur Gastrointestinal: Normal Bowel Sounds, Soft, Distended Extremity: No Inflammation; Pedal Edema Neurologic/Psychiatric: Alert, Normal Mood/Affect, Motor Weakness Skin: Normal Color, Warm/Dry Results/Procedures Lab Laboratory Tests 04/07/21 06:08 Patient resulted labs reviewed. Imaging: Reviewed Imaging Report Assessment/Plan Assessment and Plan Assess & Plan/Chief Complaint Intraperitoneal hematoma Acute blood loss anemia NSTEMI CAD 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 Ischemic cardiomyopathy CKD2 AFib Severe protein calorie malnutrition Poor prognosis Advanced age Goals of care discussion CT showed intraperitoneal hematoma Surgery consulted, no plans for surgical intervention s/p 2 units PRBC Ischemic cardiomyopathy with EF 10% Severe malnutrition and cachexia Patient would like to pursue hospice care Palliative care consulted, appreciate assistance DVT ppx: held due to major active bleeding Diagnosis/Problems Diagnosis/Problems (1) Intraperitoneal hematoma Status: Acute (2) Anemia Status: Acute (3) NSTEMI (non-ST elevation myocardial infarction) Status: Acute (4) Acute on chronic heart failure with reduced ejection fraction and diastolic dysfunction Status: Acute (5) Ischemic cardiomyopathy Status: Chronic (6) CAD (coronary artery disease) Status: Chronic (7) PAF (paroxysmal atrial fibrillation) Status: Chronic (8) Advanced age Status: Chronic (9) Poor prognosis Status: Acute (10) Acute kidney injury superimposed on chronic kidney disease Status: Acute (11) Severe protein-calorie malnutrition Status: Acute (12) Cachexia Status: Acute (13) CKD (chronic kidney disease) stage 2, GFR 60-89 ml/min Status: Chronic ZACKERY DELACRUZ MD Apr 07, 2021 12:17
[2021-04-07 19:02] VITALS: BP 127/59
[2021-04-08 07:47] VITALS: BP 133/67
[2021-04-08] MEDS: ASPIRIN 81 MG CHEW (CHILDREN'S ASA) PO SCH (08:36)
[2021-04-08] MEDS: DOCUSATE SODIUM 100 MG (COLACE) CAP PO SCH ×2 (08:36→22:05)
[2021-04-08] MEDS: SENNA W/DOCUSATE (SENOKOT S) TABLET PO SCH ×2 (08:37→22:06)
--- NOTE | 2021-04-08 10:01 | Progress Note ---
Subjective Date Seen by a Provider: Apr 08, 2021 Time Seen by a Provider: 09:30 Subjective/Events-last exam Patient seen with Dr. Nielsen. Patient reports doing well. Denies any abdominal pain as well as no N/V. Tolerating diet. Objective Exam Vital Signs Date Time Temp Pulse Resp B/P (MAP) Pulse Ox O2 Delivery O2 Flow Rate FiO2 04/08/21 07:47 36.5 74 22 133/67 (89) 96 Nasal Cannula 2.00 04/07/21 21:00 Nasal Cannula 2.00 04/07/21 19:02 36.5 74 20 127/59 (81) 95 Nasal Cannula 2.00 04/07/21 14:50 Nasal Cannula 2.00 I & O 04/08/21 07:00 Intake Total 1579 ml Balance 1579 ml Capillary Refill : Less Than 3 Seconds General Appearance: No Apparent Distress, WD/WN Neck: Normal Inspection, Non Tender Respiratory: No Accessory Muscle Use, No Respiratory Distress Cardiovascular: Regular Rate, Rhythm, No Edema Gastrointestinal: normal bowel sounds, soft, tenderness (There is an area of the LLQ that is tender and moderately firm compared to the rest of the abdomen) Extremity: Normal Inspection, Normal Range of Motion Neurologic/Psychiatric: Alert, Oriented x3 Skin: Normal Color, Warm/Dry Results Lab Microbiology 03/24/21 MRSA Screen - Final, Complete MRSA not isolated 03/23/21 Blood Culture - Final, Complete No growth 03/23/21 Urine Culture - Final, Complete NO GROWTH Assessment/Plan Assessment/Plan Assess & Plan/Chief Complaint An 89 year old female with a spontaneous intraperitoneal bleed VSS Hgb 9.0 - stable Continue to monitor H&H - transfuse as needed Pain medication as needed Patient is a DNR and poor medical condition - wound not recommend surgical intervention TAVARES DEWITT APRN Apr 08, 2021 10:01
--- NOTE | 2021-04-08 11:04 | Progress Note - Hospitalist ---
Subjective HPI/CC On Admission Date Seen by Provider: Apr 08, 2021 Time Seen by Provider: 11:00 Nimisha Hogan is an 89y/o F who presents with acute coronary syndrome. Pt was discharged on 03/20 from this hospital after being treated for a HAP. Went home on Omnicef. She was unsure of exactly what had happened yesterday but knows that she is currently in the hospital. She was able to state that yesterday she began feeling confused and weak but that was all that she remembered. Today she reports feeling fatigued. Pt's code status was discussed with her. She said that she did not want to be resuscitated if it came to that and to "let me go be with [facility]". Pt was A&Ox3 at this time. Change in code status discussed w/ patient's son and he was understanding of the pt's decision. Subjective/Events-last exam Pt reports doing well today. No complaints. Ate breakfast well. Enjoyed the oatmeal and jensen. States she would like to go home when able. Asked if the plan was to go home with Nicko and she said yes but she was not sure when he would be ready. We discussed the different options for discharge (home health vs hospice). She again seems interested in hospice in accordance with Dr Bryant's notes but hopes they will bet here every day for a few hours. I informed her this is not possible for hospice or home health but we could get her a list of private caregivers to fill that need. Objective Exam Vital Signs Vital Signs Date Time Temp Pulse Resp B/P (MAP) Pulse Ox O2 Delivery O2 Flow Rate FiO2 04/08/21 10:55 Nasal Cannula 2.00 04/08/21 07:47 36.5 74 22 133/67 (89) 96 Capillary Refill : Less Than 3 Seconds General Appearance: No Apparent Distress, Chronically ill, Thin Respiratory: Lungs Clear, No Respiratory Distress Cardiovascular: Regular Rate, Rhythm, No Murmur Neurologic/Psychiatric: Alert, Oriented x3 Results/Procedures Lab Patient resulted labs reviewed. Imaging: Reviewed Imaging Report Assessment/Plan Assessment and Plan Assess & Plan/Chief Complaint Intraperitoneal hematoma Acute blood loss anemia NSTEMI CAD 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 Ischemic cardiomyopathy CKD2 AFib Severe protein calorie malnutrition Poor prognosis Advanced age Goals of care discussion CT showed intraperitoneal hematoma- hgb stable Surgery consulted, no plans for surgical intervention s/p 2 units PRBC Ischemic cardiomyopathy with EF 10% Severe malnutrition and cachexia Patient would like to pursue hospice care, will attempt to arrange upon discharge Palliative care consulted, appreciate assistance DVT ppx: held due to major active bleeding ANDREI MACIAS MD Apr 08, 2021 11:04
--- NOTE | 2021-04-08 11:59 | Physical Therapy Daily Note ---
PT Daily Note-Current Subjective Pt. up in chair, says she is tired and would like to return to bed. Mental Status Patient Orientation: Person Attachments: Oxygen Transfers SCALE: Activities may be completed with or without assistive devices. 2-Weckcgofgp-yzuwkgu completes the activity by him/herself with no assistance from a helper. 5-Set-up or Clean-up Assistance-helper sets up or cleans up; patient completes activity. [place] assists only prior to or following the activity. 4-Supervision or Touching Assistance-helper provides verbal cues and/or touching/steadying and/or contact guard assistance as patient completes activity. Assistance may be provided throughout the activity or intermittently. 3-Partial/Moderate Assistance-helper does LESS THAN HALF the effort. [place] lifts, holds or supports trunk or limbs, but provides less than half the effort. 2-Substantial/Maximal Assistance-helper does MORE THAN HALF the effort. [place] lifts or holds trunk or limbs and provides more than half the effort. 5-Yctsdbsij-njkpyz does ALL the effort. Patient does none of the effort to complete the activity. Or, the assistance of 2 or more helpers is required for the patient to complete the activity. If activity was not attempted, code reason: 7-Patient Refused. 9-Not Applicable-not attempted and the patient did not perform the activity before the current illness, exacerbation or injury. 10-Not Attempted due to Environmental Limitations-(lack of equipment, weather restraints, etc.). 88-Not Attempted due to Medical Conditions or Safety Concerns. Sit to Lying (QC): 1 Sit to Stand (QC): 2 Chair/Hye-bn-Iouzx Xfer(QC): 2 Treatments transfer chair to bed Assessment Current Status: Fair Progress Pt. remains max A with transfers, dependent sit to supine. Pt. is very retropulsive, poor standing balance. Pt. in bed post session with call light and all needs met. PT [facility] Goals Mule Developer Goals PT Mule Developer Goals Time Frame: Apr 06, 2021 Roll Left & Right (QC): 3 Sit to Lying (QC): 3 Lying-Sitting on Side/Bed(QC): 3 Sit to Stand (QC): 3 Chair/Hav-lz-Stulp Xfer(QC): 3 Toilet Transfer (QC): 3 Walk 10 feet (QC): 3 PT Plan Treatment/Plan Treatment Plan: Continue Plan of Care Treatment Plan: Bed Mobility, Education, Functional Activity Arely, Functional Strength, Gait, Safety, Therapeutic Exercise, Transfers Treatment Duration: Apr 06, 2021 Frequency: 6 times per week Estimated Hrs Per Day: .25 hour per day Patient and/or Family Agrees t: Yes Time/GCodes Time In: 1142 Time Out: 1152 Total Billed Treatment Time: 10 Total Billed Treatment 1, FA 10' DONNIE RIVERA PT Apr 08, 2021 11:59
[2021-04-08 19:24] VITALS: BP 130/60
[2021-04-09 05:36] LABS: HEMOGLOBIN 9.3 g/dL (11.5-16.0)
[2021-04-09 07:46] VITALS: BP 114/62
[2021-04-09] MEDS: DOCUSATE SODIUM 100 MG (COLACE) CAP PO SCH ×2 (08:44→21:09)
[2021-04-09] MEDS: SENNA W/DOCUSATE (SENOKOT S) TABLET PO SCH ×2 (08:44→21:09)
[2021-04-09] MEDS: ASPIRIN 81 MG CHEW (CHILDREN'S ASA) PO SCH (08:44)
--- NOTE | 2021-04-09 09:25 | Physical Therapy Daily Note ---
PT Daily Note-Current Subjective Pt in recliner w/ RN in room and agrees to tx. Pt continually coughed throughout tx. Pt stated she "didn't think she can do any walking today." Mental Status Patient Orientation: Person, Place, Situation Transfers SCALE: Activities may be completed with or without assistive devices. 1-Srwwxbzpal-sivdzpm completes the activity by him/herself with no assistance from a helper. 5-Set-up or Clean-up Assistance-helper sets up or cleans up; patient completes activity. [place] assists only prior to or following the activity. 4-Supervision or Touching Assistance-helper provides verbal cues and/or touching/steadying and/or contact guard assistance as patient completes activity. Assistance may be provided throughout the activity or intermittently. 3-Partial/Moderate Assistance-helper does LESS THAN HALF the effort. [place] lifts, holds or supports trunk or limbs, but provides less than half the effort. 2-Substantial/Maximal Assistance-helper does MORE THAN HALF the effort. [place] lifts or holds trunk or limbs and provides more than half the effort. 4-Wctxbzomv-dtjojv does ALL the effort. Patient does none of the effort to complete the activity. Or, the assistance of 2 or more helpers is required for the patient to complete the activity. If activity was not attempted, code reason: 7-Patient Refused. 9-Not Applicable-not attempted and the patient did not perform the activity before the current illness, exacerbation or injury. 10-Not Attempted due to Environmental Limitations-(lack of equipment, weather restraints, etc.). 88-Not Attempted due to Medical Conditions or Safety Concerns. Sit to Stand (QC): 3 Toilet Transfer (QC): 3 Exercises Seated Therapy Exercises: Ankle pumps, Long arc quads Seated Reps: 10 Treatments Pt performs seated ex, followed by sit to stand. Pt retropulsive, requiring Min/ModA for standing balance and transfers. Pt transfers recliner to [facility], requiring A for doffing/donning brief. Pt requires ModA sit to stand, and transfers back to recliner. Pt left w/ all needs met, call light in hand. Assessment Current Status: Good Progress Pt limited by weakness and poor balance. PT Detention Goals Detention Goals PT Board Attendant Goals Time Frame: Apr 06, 2021 Roll Left & Right (QC): 3 Sit to Lying (QC): 3 Lying-Sitting on Side/Bed(QC): 3 Sit to Stand (QC): 3 Chair/Cpn-cs-Usfto Xfer(QC): 3 Toilet Transfer (QC): 3 Walk 10 feet (QC): 3 PT Plan Treatment/Plan Treatment Plan: Continue Plan of Care Treatment Plan: Bed Mobility, Education, Functional Activity Arely, Functional Strength, Gait, Safety, Therapeutic Exercise, Transfers Treatment Duration: Apr 06, 2021 Frequency: 6 times per week Estimated Hrs Per Day: .25 hour per day Patient and/or Family Agrees t: Yes Safety Risks/Education Teaching Recipient: Patient Teaching Methods: Discussion Response to Teaching: Verbalize Understanding Time/GCodes Time In: 841 Time Out: 859 Total Billed Treatment Time: 18 Total Billed Treatment JAMIE Dickerson SYDNEY PTA Apr 09, 2021 09:25
--- NOTE | 2021-04-09 12:56 | Discharge Inst-Skilled Nursing ---
Discharge Inst-Skilled NF Chief Complaint Nimisha Hogan is an 89y/o F who presents with acute coronary syndrome. Pt was discharged on 03/20 from this hospital after being treated for a HAP. Went home on Omnicef. She was unsure of exactly what had happened yesterday but knows that she is currently in the hospital. She was able to state that yesterday she began feeling confused and weak but that was all that she remembered. Today she reports feeling fatigued. Pt's code status was discussed with her. She said that she did not want to be resuscitated if it came to that and to "let me go be with [facility]". Pt was A&Ox3 at this time. Change in code status discussed w/ patient's son and he was understanding of the pt's decision. Consult/Follow Up/Orders Follow Up Appt.: with the emergency medical technician in 1 week Skilled NF Admit to: [facility] Certification ([facility]) I certify that SNF services are required to be given on an inpatient basis because of the above named patient's need for senior living care on a continuing basis for the conditions(s) for which he/she was receiving inpatient hospital services prior to his/her transfer to the SNF. Assisted Facility Order: Nursing Services, [employer] [place]-Evaluate & Treat, Physical Therapy-Evaluate & Treat, Wound Care-Eval/Treat Oxygen Delivery Method: Nasal Cannula (3lpm) Oxygen Flow Rate L/min (Range): 3 Discharge Diet: No Restrictions Daily Activity as Tolerated: Yes Resuscitation Status: Do Not Resuscitate Type of Care: Hospice Care (Home) New & Resume Previous Orders Etta Acuna Apr 09, 2021 12:55 ETTA ACUNA MD Apr 09, 2021 12:56
--- NOTE | 2021-04-09 13:02 | Progress Note - Hospitalist ---
Subjective HPI/CC On Admission Date Seen by Provider: Apr 09, 2021 Time Seen by Provider: 12:58 Nimisha Hogan is an 89y/o F who presents with acute coronary syndrome. Pt was discharged on 03/20 from this hospital after being treated for a HAP. Went home on [employer]. She was unsure of exactly what had happened yesterday but knows that she is currently in the hospital. She was able to state that yesterday she began feeling confused and weak but that was all that she remembered. Today she reports feeling fatigued. Pt's code status was discussed with her. She said that she did not want to be resuscitated if it came to that and to "let me go be with [facility]". Pt was A&Ox3 at this time. Change in code status discussed w/ patient's son and he was understanding of the pt's decision. Subjective/Events-last exam Pt reports doing well today. Eating oatmeal. No complaints. States her son Nicko is normally here by now. When I went to exit room Nicko was walking in so I went back and we discussed how pt is medically stable for DC and if their plan is to go home we can do that today. he states he will talk to his mom and Willard with discharge planning. Objective Exam Vital Signs Vital Signs Date Time Temp Pulse Resp B/P (MAP) Pulse Ox O2 Delivery O2 Flow Rate FiO2 04/09/21 12:56 Nasal Cannula 04/09/21 08:41 2.00 04/09/21 07:46 36.5 74 20 114/62 (79) 97 Capillary Refill : Less Than 3 Seconds General Appearance: No Apparent Distress, Chronically ill, Thin Respiratory: Lungs Clear, No Respiratory Distress Cardiovascular: Regular Rate, Rhythm, No Murmur Neurologic/Psychiatric: Alert, Oriented x3 Results/Procedures Lab Laboratory Tests 04/09/21 05:10 Patient resulted labs reviewed. 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 Plan is now to DC to [facility] tomorrow for skilled therapies DVT ppx: held due to major active bleeding ANDREI MACIAS MD Apr 09, 2021 13:02
[2021-04-09 19:47] VITALS: BP 124/62
[2021-04-10 07:43] VITALS: BP 139/64
[2021-04-10] MEDS: DOCUSATE SODIUM 100 MG (COLACE) CAP PO SCH (08:09)
[2021-04-10] MEDS: ASPIRIN 81 MG CHEW (CHILDREN'S ASA) PO SCH (08:09)
[2021-04-10] MEDS: SENNA W/DOCUSATE (SENOKOT S) TABLET PO SCH (08:09)
[2021-04-10] MEDS ORDERED: FURO-125 PO (08:16)
[2021-04-10] MEDS ORDERED: DILT60TA PO (08:16)
--- NOTE | 2021-04-10 08:18 | Discharge Summary ---
Diagnosis/Chief Complaint Date of Admission Mar 23, 2021 at 22:40 Date of Discharge Discharge Date: Apr 10, 2021 Admission Diagnosis NSTEMI Primary Care No,Local Physician Discharge Diagnosis (1) Intraperitoneal hematoma Status: Acute (2) Anemia Status: Acute (3) NSTEMI (non-ST elevation myocardial infarction) Status: Acute (4) Acute on chronic heart failure with reduced ejection fraction and diastolic dysfunction Status: Acute (5) Ischemic cardiomyopathy Status: Chronic (6) CAD (coronary artery disease) Status: Chronic (7) PAF (paroxysmal atrial fibrillation) Status: Chronic (8) Advanced age Status: Chronic (9) Poor prognosis Status: Acute (10) Acute kidney injury superimposed on chronic kidney disease Status: Acute (11) Severe protein-calorie malnutrition Status: Acute (12) Cachexia Status: Acute (13) CKD (chronic kidney disease) stage 2, GFR 60-89 ml/min Status: Chronic Discharge Summary Discharge Physical Exam Allergies: Coded Allergies: amoxicillin (Unverified Allergy, Unknown, 07/14/18) Vitals & I&Os Vital Signs Date Time Temp Pulse Resp B/P (MAP) Pulse Ox O2 Delivery O2 Flow Rate FiO2 04/10/21 07:52 Nasal Cannula 2.00 04/10/21 07:43 36.6 78 20 139/64 (89) 97 Hospital Course Labs (last 24 hrs) Laboratory Tests 04/09/21 14:07: Lab Scanned Report Transfusion Reaction Form Microbiology 03/24/21 MRSA Screen - Final, Complete MRSA not isolated 03/23/21 Blood Culture - Final, Complete No growth 03/23/21 Urine Culture - Final, Complete NO GROWTH Patient resulted labs reviewed. Imaging: Reviewed Imaging Report Discharge Home Medications: Active Scripts Active Lasix (Furosemide) 20 Mg Tablet 20 Mg PO Q48H Diltiazem HCl 60 Mg Tablet 60 Mg PO TID Furosemide 20 Mg Tablet 20 Mg PO DAILY 30 Days Reported Milk of Magnesia (Magnesium Hydroxide) 2,400 Mg/10 Ml Oral.susp 30 Ml PO DAILY PRN Multivitamins with Minerals (Multivitamin with Minerals) 1 Each Tablet 1 Each PO DAILY Mirtazapine 15 Mg Tablet 15 Mg PO HS Spironolactone 25 Mg Tablet 25 Mg PO Q48H Aspirin 81 Mg Tab.chew 81 Mg PO BID Calcium Carbonate 300 Mg Tab.chew 750 Mg PO Q12H PRN Tylenol Extra Strength (Acetaminophen) 500 Mg Tablet 1,000 Mg PO Q6H PRN Vitamin D3 (Cholecalciferol (Vitamin D3)) 25 Mcg Capsule 25 Mcg PO DAILY Colace (Docusate Sodium) 100 Mg Capsule 100 Mg PO DAILY Vitamin D3 (Cholecalciferol (Vitamin D3)) 1,250 Mcg Capsule 1,250 Mcg PO WED Instructions to patient/family Please see electronic discharge instructions given to patient. ANDREI MACIAS MD Apr 10, 2021 08:18
--- NOTE | 2021-04-10 09:01 | Physical Therapy Daily Note ---
PT Daily Note-Current Subjective Pt in recliner eating breakfast upon arrival. Nursing enters room immediately after stating pt needs to use restroom. PHYSICIAN AIDE A pt w/ toileting. Transfers SCALE: Activities may be completed with or without assistive devices. 0-Pcrqquyubh-xtighax completes the activity by him/herself with no assistance from a helper. 5-Set-up or Clean-up Assistance-helper sets up or cleans up; patient completes activity. [place] assists only prior to or following the activity. 4-Supervision or Touching Assistance-helper provides verbal cues and/or colleen sina/steadying and/or contact guard assistance as patient completes activity. Assistance may be provided throughout the activity or intermittently. 3-Partial/Moderate Assistance-helper does LESS THAN HALF the effort. [place] lifts, holds or supports trunk or limbs, but provides less than half the effort. 2-Substantial/Maximal Assistance-helper does MORE THAN HALF the effort. [place] lifts or holds trunk or limbs and provides more than half the effort. 4-Dzrswpcge-cotxdu does ALL the effort. Patient does none of the effort to complete the activity. Or, the assistance of 2 or more helpers is required for the patient to complete the activity. If activity was not attempted, code reason: 7-Patient Refused. 9-Not Applicable-not attempted and the patient did not perform the activity before the current illness, exacerbation or injury. 10-Not Attempted due to Environmental Limitations-(lack of equipment, weather restraints, etc.). 88-Not Attempted due to Medical Conditions or Safety Concerns. Sit to Stand (QC): 3 Toilet Transfer (QC): 3 Pt sit to stand ModA. Pt requires VC to extend LE and have torso upright. Pt tends to have kyphotic posture in stance and retropulsive in stance. Pt able to transfer from recliner to BSC and back iRchar, support for steadiness. Treatments Pt sit to stand and transfers to BSC. Pt needs A doffing/donning brief as well as cleaning. Pt transfers back to recliner to finish breakfast. Pt left with all needs met, call light in hand. Assessment Current Status: Fair Progress Pt limited by weakness and instability PT Long-Term Goals Front End Driver Goals PT Long-Term Goals Time Frame: Apr 06, 2021 Roll Left & Right (QC): 3 Sit to Lying (QC): 3 Lying-Sitting on Side/Bed(QC): 3 Sit to Stand (QC): 3 Chair/Pkk-da-Drtqy Xfer(QC): 3 Toilet Transfer (QC): 3 Walk 10 feet (QC): 3 PT Plan Problem List Problem List: Activity Tolerance, Functional Strength, Safety Treatment/Plan Treatment Plan: Continue Plan of Care Treatment Plan: Bed Mobility, Education, Functional Activity Arely, Functional Strength, Gait, Safety, Therapeutic Exercise, Transfers Treatment Duration: Apr 06, 2021 Frequency: 6 times per week Estimated Hrs Per Day: .25 hour per day Patient and/or Family Agrees t: Yes Time/GCodes Time In: 833 Time Out: 844 Total Billed Treatment Time: 11 Total Billed Treatment 1JAMIE SYDNEY PTA Apr 10, 2021 09:01
[2021-04-10 13:37] VITALS: BP 139/64
== END 2021-04-10 13:19 | DRG 280 ==
LOC: EDUNIT# 20:06 → ER 20:09 → ICU 22:40 → 4TH 03-24 17:41
PROVIDERS: ADMIT Internal Medicine; ATTEND Family Medicine
DX: I13.0 Hypertensive heart and chronic kidney disease with heart failure and stage 1 through stage 4 chronic kidney disease, or unspecified chronic kidney disease (principal); I21.A1 Myocardial infarction type 2; I50.43 Acute on chronic combined systolic (congestive) and diastolic (congestive) heart failure; J96.20 Acute and chronic respiratory failure, unspecified whether with hypoxia or hypercapnia; J18.9 Pneumonia, unspecified organism; K66.1 Hemoperitoneum; E43 Unspecified severe protein-calorie malnutrition; N17.9 Acute kidney failure, unspecified; Z68.1 Body mass index [BMI] 19.9 or less, adult; D62 Acute posthemorrhagic anemia; Z20.822 Contact with and (suspected) exposure to COVID-19; Z66 Do not resuscitate; I25.5 Ischemic cardiomyopathy; N18.31 Chronic kidney disease, stage 3a; I48.0 Paroxysmal atrial fibrillation; E87.5 Hyperkalemia; Z91.19 Patient's noncompliance with other medical treatment and regimen; I08.0 Rheumatic disorders of both mitral and aortic valves; I45.10 Unspecified right bundle-branch block; I25.10 Atherosclerotic heart disease of native coronary artery without angina pectoris; I87.2 Venous insufficiency (chronic) (peripheral); I25.2 Old myocardial infarction; Z79.82 Long term (current) use of aspirin; Z95.5 Presence of coronary angioplasty implant and graft; Z88.1 Allergy status to other antibiotic agents; Z82.49 Family history of ischemic heart disease and other diseases of the circulatory system
CPT/HCPCS: 36410; 36415; 51702; 70450; 71045; 73100; 73502; 74176; 76937; 80048; 80053; 80061; 80162; 80306; 81000; 82140; 82550; 82553; 82947; 83605; 83690; 83735; 83874; 83880; 84100; 84132; 84145; 84439; 84443; 84484; 85007; 85014; 85018; 85025; 85027; 85610; 85652; 85730; 86141; 86850; 86900; 86901; 86920; 87040; 87081; 87088; 87636; 93005; 93041; 93306; 94760; 96361; 96372; 96374; 96375; 96376; 99291

== ENCOUNTER 2021-05-04 10:17 | Inpatient (IN) | payer MEDICARE, OTHER ==
[~2021-05-04] VITALS: Ht 165 cm; Wt 48.9 kg
[~2021-05-04 10:17] MED LIST changes: +DIGO125T3 PO; +DILT240C91 PO; +DILT60TA PO; +FURO-125 PO; -LISI2.5T PO; +LISI2.5T13 PO; +MIRT-68 PO; +MULT-166 PO; +SPIR25TA5 PO
[2021-05-04] MEDS ORDERED: dilTIAZem DRIP PRE-MIX 125 ML IV ONE (10:29)
[2021-05-04] MEDS ORDERED: NS IV 1000 ML 1,000 ML ONE (10:29)
[2021-05-04] MEDS ORDERED: ADENOSINE 6 MG/2 ML (ADENOCARD) VIAL IV ONE ×4 (10:37→11:00)
[2021-05-04 10:40] LABS: BASOPHILS % (AUTO) 1 % (0-10); EOSINOPHILS % (AUTO) 0 % (0-10); HEMATOCRIT 45 % (35-52); HEMOGLOBIN 13.3 g/dL (11.5-16.0); LYMPHOCYTES # (AUTO) 1.1 10^3/uL (1.0-4.0); LYMPHOCYTES % (AUTO) 16 % (12-44); MEAN CORPUSCULAR HEMOGLOBIN 32 pg (25-34); MEAN CORPUSCULAR HGB CONC 30 g/dL (32-36); MEAN CORPUSCULAR VOLUME 108 fL (80-99); MEAN PLATELET VOLUME 10.3 fL (9.0-12.2); MONOCYTES # (AUTO) 0.5 10^3/uL (0.0-1.0); MONOCYTES % (AUTO) 8 % (0-12); NEUTROPHILS # (AUTO) 4.8 10^3/uL (1.8-7.8); NEUTROPHILS % (AUTO) 73 % (42-75); PLATELET COUNT 180 10^3/uL (130-400); WHITE BLOOD COUNT 6.6 10^3/uL (4.3-11.0)
[2021-05-04 10:45] LABS: ALBUMIN 3.6 GM/DL (3.2-4.5); POTASSIUM 4.8 MMOL/L (3.6-5.0)
[2021-05-04] MEDS ORDERED: dilTIAZem DRIP PRE-MIX 125 ML IV SCH ×2 (10:45→14:45)
[2021-05-04 10:46] LABS: CALCIUM 9.1 MG/DL (8.5-10.1); INR 1.4 (0.8-1.4); PROTHROMBIN TIME PATIENT 17.9 SEC (12.2-14.7)
[2021-05-04 10:47] LABS: TOTAL PROTEIN 6.9 GM/DL (6.4-8.2)
[2021-05-04 10:49] LABS: BILIRUBIN,TOTAL 1.3 MG/DL (0.1-1.0)
[2021-05-04 10:51] LABS: CREATININE SERUM 1.51 MG/DL (0.60-1.30)
[2021-05-04 10:54] LABS: MAGNESIUM 2.3 MG/DL (1.6-2.4)
--- NOTE | 2021-05-04 10:55 | ED Abdominal Pain ---
General Chief Complaint: abdominal pain and distention Stated Complaint: ABD DISTENSION History of Present Illness Date Seen by Provider: May 04, 2021 Time Seen by Provider: 10:18 Initial Comments This is Geo an 89 yo female that presented via EMS from [facility] with the chief complaint of abdominal distention and discomfort. Pt is also experiencing new onset SOB on constant supplemental 02 of 3L. EMS states that upon first reaching the Pt her son was on scene and there is a history of him wanting her moved out of the facility. She stated that there is discomfort in the upper quadrants and firmness to palpation. Pt was a poor historian. Pt had a recent hospital stay 1 month ago for pneumonia and NSTEMI. According to the nursing staff there were signs and symptoms of a chronic blood loss but source is unknown. (EDEN RODRIGUEZ MED STUDENT) Allergies and Home Medications Allergies Coded Allergies: amoxicillin (Unverified Allergy, Unknown, 07/14/18) Patient Home Medication List Home Medication List Reviewed: Yes (NIURKA ARREDONDO MD) Acetaminophen (Tylenol Extra Strength) 500 Mg Tablet, 1,000 MG PO Q6H PRN for PAIN-MILD (1-4), (Reported) Entered as Reported by: ALEJANDRINA ALMANZA on 03/20/21 1028 Aspirin (Aspirin) 81 Mg Tab.chew, 81 MG PO BID, (Reported) Entered as Reported by: ALEJANDRINA ALMANZA on 03/20/21 1033 Calcium Carbonate (Calcium Carbonate) 300 Mg Tab.chew, 750 MG PO Q12H PRN for STOMACH UPSET, (Reported) Entered as Reported by: ALEJANDRINA ALMANZA on 03/20/21 1028 Cholecalciferol (Vitamin D3) (Vitamin D3) 1,250 Mcg Capsule, 1,250 MCG PO WED, (Reported) Entered as Reported by: ALEJANDRINA ALMANZA on 03/20/21 1028 Cholecalciferol (Vitamin D3) (Vitamin D3) 25 Mcg Capsule, 25 MCG PO DAILY, (Reported) Entered as Reported by: ALEJANDRINA ALMANZA on 03/20/21 1028 Diltiazem HCl (Diltiazem HCl) 60 Mg Tablet, 60 MG PO TID Prescribed by: ANDREI MACIAS on 04/10/21 0816 Docusate Sodium (Colace) 100 Mg Capsule, 100 MG PO DAILY, (Reported) Entered as Reported by: ALEJANDRINA ALMANZA on 03/20/21 1028 Furosemide (Furosemide) 20 Mg Tablet, 20 MG PO DAILY Prescribed by: ZACKERY DELACRUZ on 04/03/21 0723 Furosemide (Lasix) 20 Mg Tablet, 20 MG PO Q48H Prescribed by: ANDREI MACIAS on 04/10/21 0816 Magnesium Hydroxide (Milk of Magnesia) 2,400 Mg/10 Ml Oral.susp, 30 ML PO DAILY PRN for CONSTIPATION-7TH LINE, (Reported) Entered as Reported by: ALEJANDRINA ALMANZA on 03/25/21 1332 Mirtazapine (Mirtazapine) 15 Mg Tablet, 15 MG PO HS, (Reported) Entered as Reported by: ALEJANDRINA ALMANZA on 03/25/21 1329 Multivitamin with Minerals (Multivitamins with Minerals) 1 Each Tablet, 1 EACH PO DAILY, (Reported) Entered as Reported by: ALEJANDRINA ALMANZA on 03/25/21 1330 Spironolactone (Spironolactone) 25 Mg Tablet, 25 MG PO Q48H, (Reported) Entered as Reported by: ALEJANDRINA ALMANZA on 03/25/21 1329 Review of Systems Review of Systems Constitutional: see HPI EENTM: No Symptoms Reported Respiratory: See HPI Cardiovascular: See HPI Gastrointestinal: See HPI Genitourinary: No Symptoms Reported Musculoskeletal: no symptoms reported Skin: no symptoms reported Psychiatric/Neurological: See HPI Endocrine: No Symptoms Reported Hematologic/Lymphatic: No Symptoms Reported (NIURKA ARREDONDO MD) Past Tribuwy-Fjygjw-Asukbd Hx Patient Social History Tobacco Use?: No Alcohol Use?: No (NIURKA ARREDONDO MD) Immunizations Up To Date Tetanus Booster (TDap): Unknown (EDEN RODRIGUEZ STUDENT) Seasonal Allergies Seasonal Allergies: No (EDEN RODRIGUEZ STUDENT) Past Medical History Surgery/Hospitalization HX: RIGHT HIP FRACTURE REPAIR 03/20[address] [place] BY DR. MACIEL CARDIAC CATH 09/13/[address] MYERS: CONCLUSIONS: 1. Coronary artery disease, moderate. 2. Patent stent in the mid left anterior descending artery that is known to be Promus Premier 3 x 12 mm stent that was placed in 2014. 3. Marked impairment of global left ventricular systolic function with an ejection fraction of 20%. 4. Global hypokinesis of the left ventricle, more marked in the anterolateral and apical giron. 5. Mild elevation of the left ventricular end-diastolic pressure. DISCUSSION AND RECOMMENDATIONS: Based on the results of the study, we are continuing a conservative approach. Her main problem has been noncompliance with medical therapy. We have again advised her to be compliant and to follow up closely on an outpatient basis. 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 Genitourinary: No Gastrointestinal: Yes Chronic Constipation Musculoskeletal: No Endocrine: No HEENT: Yes Glaucoma Cancer: Yes (2010) Skin Did You Recieve Any Treatments: Yes What Type of Treatment Did You: Surgical Intervention Psychosocial: No Integumentary: Yes Recent Skin Changes Blood Disorders: No Adverse Reaction/Blood Tranf: No (EDEN RODRIGUEZ STUDENT) Family Medical History Hypertension 19 FATHER No Pertinent Family Hx (EDEN RODRIGUEZ STUDENT) Physical Exam Vital Signs Vital Signs - First Documented 05/04/21 10:17 Temp 36.3 Pulse 152 Resp 30 B/P (MAP) 110/97 (101) Pulse Ox 100 O2 Delivery Nasal Cannula O2 Flow Rate 3.00 (NIURKA ARREDONDO MD) Vital Signs Capillary Refill : (EDEN RODRIGUEZ STUDENT) Height/Weight/BMI Height: 5'5.00" Weight: 107lbs. 1.0oz. 48.073155fa; 24.00 BMI Method:Stated (EDEN RODRIGUEZ STUDENT) General Appearance: WD/WN, mild distress, thin HEENT: PERRL/EOMI, normal ENT inspection, other (Oropharynx dry) Neck: other (JVD) Respiratory: lungs clear, normal breath sounds, other (Tachypnea) Cardiovascular: no edema, no murmur, irregularly irregular Gastrointestinal: tenderness (Mild), other (Firm but flat) Extremities: normal inspection, no pedal edema Neurologic/Psychiatric: other (Disoriented, decreased alertness, minimal r esponse to questions, global weakness) Skin: normal color, warm/dry (NIURKA ARREDONDO MD) Focused Exam Lactate Level 05/04/21 12:20: Lactic Acid Level 2.13*H (NIURKA ARREDONDO MD) Lactic Acid Level Laboratory Tests Test 05/04/21 10:25 05/04/21 12:20 Lactic Acid Level 3.99 MMOL/L (0.50-2.00) *H 2.13 MMOL/L (0.50-2.00) *H (NIURKA ARREDONDO MD) Progress/Results/Core Measures Results/Orders Lab Results Laboratory Tests Test 05/04/21 10:25 05/04/21 11:03 05/04/21 12:20 Range/Units White Blood Count 6.6 4.3-11.0 10^3/uL Red Blood Count 4.17 3.80-5.11 10^6/uL Hemoglobin 13.3 11.5-16.0 g/dL Hematocrit 45 35-52 % Mean Corpuscular Volume 108 H 80-99 fL Mean Corpuscular Hemoglobin 32 25-34 pg Mean Corpuscular Hemoglobin Concent 30 L 32-36 g/dL Red Cell Distribution Width 18.2 H 10.0-14.5 % Platelet Count 180 130-400 10^3/uL Mean Platelet Volume 10.3 9.0-12.2 fL Immature Granulocyte % (Auto) 2 % Neutrophils (%) (Auto) 73 42-75 % Lymphocytes (%) (Auto) 16 12-44 % Monocytes (%) (Auto) 8 0-12 % Eosinophils (%) (Auto) 0 0-10 % Basophils (%) (Auto) 1 0-10 % Neutrophils # (Auto) 4.8 1.8-7.8 10^3/uL Lymphocytes # (Auto) 1.1 1.0-4.0 10^3/uL Monocytes # (Auto) 0.5 0.0-1.0 10^3/uL Eosinophils # (Auto) 0.0 0.0-0.3 10^3/uL Basophils # (Auto) 0.0 0.0-0.1 10^3/uL Immature Granulocyte # (Auto) 0.2 H 0.0-0.1 10^3/uL Prothrombin Time 17.9 H 12.2-14.7 SEC INR Comment 1.4 0.8-1.4 Activated Partial Thromboplast Time 31 24-35 SEC Sodium Level 143 135-145 MMOL/L Potassium Level 4.8 3.6-5.0 MMOL/L Chloride Level 100 98-107 MMOL/L Carbon Dioxide Level 26 21-32 MMOL/L Anion Gap 17 H 5-14 MMOL/L Blood Urea Nitrogen 56 H 7-18 MG/DL Creatinine 1.51 H 0.60-1.30 MG/DL Estimat Glomerular Filtration Rate 33 BUN/Creatinine Ratio 37 Glucose Level 122 H 70-105 MG/DL Lactic Acid Level 3.99 *H 2.13 *H 0.50-2.00 MMOL/L Calcium Level 9.1 8.5-10.1 MG/DL Corrected Calcium 9.4 8.5-10.1 MG/DL Magnesium Level 2.3 1.6-2.4 MG/DL Total Bilirubin 1.3 H 0.1-1.0 MG/DL Aspartate Amino Transf (AST/SGOT) 26 5-34 U/L Alanine Aminotransferase (ALT/SGPT) 72 H 0-55 U/L Alkaline Phosphatase 114 40-136 U/L Myoglobin 33.6 10.0-92.0 NG/ML Troponin I 0.108 H <0.028 NG/ML C-Reactive Protein High Sensitivity 3.41 H 0.00-0.50 MG/DL B-Type Natriuretic Peptide 4618.9 H <100.0 PG/ML Total Protein 6.9 6.4-8.2 GM/DL Albumin 3.6 3.2-4.5 GM/DL Free Thyroxine 0.91 0.70-1.48 NG/DL TSH Granite Testing 7.53 H 0.35-4.94 UIU/ML Urine Color YELLOW Urine Clarity CLOUDY Urine pH 6.0 5-9 Urine Specific Gilliam >=1.030 1.016-1.022 Urine Protein 2+ H NEGATIVE Urine Glucose (UA) NEGATIVE NEGATIVE Urine Ketones NEGATIVE NEGATIVE Urine Nitrite NEGATIVE NEGATIVE Urine Bilirubin NEGATIVE NEGATIVE Urine Urobilinogen 4.0 < = 1.0 MG/DL Urine Leukocyte Esterase 1+ H NEGATIVE Urine RBC (Auto) 3+ H NEGATIVE Urine RBC 5-10 H /HPF Urine WBC >100 H /HPF Urine Squamous Epithelial Cells 2-5 /HPF Urine Crystals NONE /LPF Urine Bacteria LARGE H /HPF Urine Casts NONE /LPF Urine Mucus NEGATIVE /LPF Urine Culture Indicated YES (NIURKA ARREDONDO MD) My Orders Orders - NIURKA ARREDONDO MD Ns Iv 1000 Ml (Sodium Chloride 0.9%) (05/04/21 10:29) Diltiazem Drip Pre-Mix (Cardizem Drip Pr (05/04/21 10:29) Cbc With Automated Diff (05/04/21 10:31) Magnesium (05/04/21 10:31) Chest 1 View, Ap/Pa Only (05/04/21 10:31) Ekg Tracing (05/04/21 10:31) Comprehensive Metabolic Panel (05/04/21 10:31) Myoglobin Serum (05/04/21 10:31) Protime With Inr (05/04/21 10:31) Partial Thromboplastin Time (05/04/21 10:31) O2 (05/04/21 10:31) Monitor-Rhythm Ecg Trace Only (05/04/21 10:31) Lipid Panel (05/05/21 06:00) Ed Iv/Invasive Line Start (05/04/21 10:31) Troponin I (05/04/21 10:31) Hs C Reactive Protein (05/04/21 10:31) Lactic Acid Analyzer (05/04/21 10:31) Thyroid Analyzer (05/04/21 10:31) Diltiazem Drip Pre-Mix (Cardizem Drip Pr (05/04/21 10:45) BNP (05/04/21 10:35) Adenosine Injection (Adenocard Injection (05/04/21 10:45) Adenosine Injection (Adenocard Injection (05/04/21 10:45) Adenosine Injection (Adenocard Injection (05/04/21 10:37) Ekg Tracing (05/04/21 10:57) Adenosine Injection (Adenocard Injection (05/04/21 11:00) Free T4 (Free Thyroxine) (05/04/21 10:25) Ct Chest/Abdomen/Pelvis Wo (05/04/21 11:36) Ct Head Wo (05/04/21 11:45) Ekg Tracing (05/04/21 12:23) Blood Culture (05/04/21 12:33) Sputum Culture (05/04/21 12:33) Vital Signs Adult Sepsis Patie Q15M (05/04/21 12:33) Remove Rings In Anticipation O (05/04/21 12:33) Meropenem (Merrem 500 Mg) (05/04/21 12:45) Ua Culture If Indicated (05/04/21 13:15) Furosemide Injection (Lasix Injection) (05/04/21 13:45) Urine Culture (05/04/21 11:03) (NIURKA ARREDONDO MD) Medications Given in ED Current Medications Medications Dose Ordered Sig/Isaac Route Start Time Stop Time Status Last Admin Dose Admin Adenosine 6 mg ONCE ONCE IV 05/04/21 11:00 05/04/21 11:01 DC 05/04/21 10:45 6 MG Adenosine 12 mg ONCE ONCE IV 05/04/21 10:45 05/04/21 10:46 DC 05/04/21 10:50 12 MG Furosemide 40 mg ONCE ONCE IVP 05/04/21 13:45 05/04/21 13:46 DC 05/04/21 14:13 40 MG Meropenem 500 mg/ Sterile Water 10 ml @ 200 mls/hr ONCE ONCE IV 05/04/21 12:45 05/04/21 12:48 DC 05/04/21 12:52 200 MLS/HR Sodium Chloride 1,000 ml @ ud STK-MED ONCE .ROUTE 05/04/21 10:29 05/04/21 10:32 DC 05/04/21 11:00 1,000 MLS/HR (NIURKA ARREDONDO MD) Vital Signs/I&O 05/04/21 05/04/21 10:17 10:17 Temp 36.3 Pulse 152 Resp 30 B/P (MAP) 110/97 (101) Pulse Ox 100 O2 Delivery Nasal Cannula O2 Flow Rate 3.00 (NIURKA ARREDONDO MD) Progress Progress Note : Progress Note Patient was noted to have extreme tachycardia upon arrival to the ER. EMS notes this was an abrupt change as they were bringing her into the ER. She had associated shortness of breath. Abdomen was also noted to be firm and mildly tender. EKG was thought to be atrial flutter. Adenosine 6 mg was administered without change. Adenosine 12 mg was administered and slow downed the rhythm well enough to clearly see atrial fibrillation. Patient was started on Cardizem with good control of heart rate. She did at one point developed chest pain. 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 Troponin was elevated which was not unexpected for her atrial fibrillation with extreme tachycardia. Patient is not a candidate for invasive interventions due to her overall condition and based on her prior conversations with Dr. Myers. Patient was also found to have sources of infection including urinary tract infection and possible colitis on CT scan. Pelvic hematoma is unchanged from prior and cause of the hematoma is uncertain. Presence of hematoma is a contraindication for any anticoagulant therapy. Patient confirms DO NOT RESUSCITATE status and confirms that she does not want any invasive procedures done. We did discuss the concepts of comfort care and hospice. Patient and son seem to be in agreement with entertaining these ideas if she does not improve notably from her current state. Meropenem was started for initial antibiotic therapy. IV fluids were started but were stopped once the pleural effusion and elevated BNP were noted. Case was discussed with Dr. Rodgers, Dr. Myers, and Dr. Delacruz. Cardiac management was discussed with Dr. Myers and included aspirin, Toprol-XL, Lasix, and potassium replacement. (NIURKA ARREDONDO MD) EKG #1: EKG Time: 10:24 Rate: 151 Comment Extreme tachycardia with heart rate of 151. Rhythm is possibly slightly irregular suggesting A. fib. No overt ST elevation. EKG #2: EKG Time: 10:50 Comment Atrial fibrillation with RVR after administration of 12 mg adenosine. Rate is variable. No overt ST elevation or depression. EKG #3: EKG Time: 12:29 Rate: 105 Rhythm: A Fib/Flutter Comment Atrial fibrillation with ST changes consistent with chronic atypical bundle branch block when compared with prior. Discussed with Dr. Myers. (NIURKA ARREDONDO MD) Diagnostic Imaging Diagonstic Imaging: Xray Plain Films/CT/US/NM/MRI: chest Comments Chest x-ray viewed by me and report reviewed. See report below: NAME: [facility] REC#: [id number] PT STATUS: REG ER : 1930 PHYSICIAN: NIURKA ARREDONDO MD ADMIT DATE: 05/04/21/ER Draft Date of Exam:05/04/21 CHEST 1 VIEW, AP/PA ONLY INDICATION: Chest pain COMPARISON: 03/24/2021 and 04/13/2019 TECHNIQUE: Single radiograph of the chest dated 05/04/2021. FINDINGS: The cardiac silhouette is enlarged. Mild central pulmonary vascular congestion. Moderate right and small left bibasilar pleural-parenchymal opacities are present, worsened on the right. The upper lungs are clear of focal pulmonary opacity. No pneumothorax. Scattered osseous degenerative changes without acute osseous abnormality. IMPRESSION: Slightly worsened moderate sized right basilar pleural-parenchymal opacity, related to a combination of pleural fluid with adjacent atelectasis and/or infiltrate. Slightly improved small left basilar pleural-parenchymal opacity. Persistent cardiomegaly with mild central pulmonary vascular congestion. Dictated on workstation # [id number] Dict: 05/04/21 1112 Trans: 05/04/21 1119 CVB [id number] Interpreted by: WIL STOKES MD Diagonstic Imaging: CT Plain Films/CT/US/NM/MRI: chest, abdomen, pelvis Comments CT viewed by me and report reviewed. See report below: NAME: [facility] REC#: [id number] PT STATUS: REG ER : 1930 PHYSICIAN: NIURKA ARREDONDO MD ADMIT DATE: 05/04/21/ER Draft Date of Exam:05/04/21 CT CHEST/ABDOMEN/PELVIS WO PROCEDURE: CT chest, abdomen, and pelvis without contrast. TECHNIQUE: Multiple contiguous axial images were obtained through the chest, abdomen, and pelvis without the use of intravenous contrast. Auto Exposure Controls were utilized during the CT exam to meet ALARA standards for radiation dose reduction. Indication: Dyspnea. Abdominal pain and distention. Comparison: 04/05/2021. Discussion: CHEST: Large layering right pleural effusion, increased from the prior. There is a small left effusion. Cardiomegaly is stable. Pulmonary artery hypertension is stable. Thoracic aorta is normal in caliber and configuration. Atelectasis is noted associated with the effusions. Some air bronchograms are noted within the right lower lobe. No adenopathy identified. Chronic compression deformities of the lower thoracic spine are stable. Pectus excavatum deformity is stable. ABDOMEN/PELVIS: The liver, gallbladder, pancreas, spleen, and adrenal glands are unremarkable. No renal stone or hydronephrosis. Severe atherosclerotic plaque throughout the aorta is stable. Anasarca is noted. Thick-walled inflamed descending colon suggesting colitis, likely infectious or inflammatory. No free air. Mild ascites is noted within the pelvis. Large dense mass is again noted anterior to the bladder measuring 11.6 x 6.9 cm, essentially stable. The bladder is decompressed by Angela catheter. No acute osseous abnormality. Impression: 1. Large right pleural effusion is increased from the prior exam. New small left pleural effusion. 2. Stable cardiomegaly and pulmonary artery hypertension. 3. Suspected hemorrhage within the pelvis, stable. 4. Stable anasarca and mild ascites. 5. New inflammatory changes along the descending colon consistent with colitis. Dictated on workstation # [id number] Dict: 05/04/21 1205 Trans: 05/04/21 1227 CVB [id number] Interpreted by: MAURILIO KERNS MD Diagonstic Imaging: CT Plain Films/CT/US/NM/MRI: head Comments CT head viewed by me and report reviewed. See report below: NAME: [facility] REC#: [id number] PT STATUS: REG ER : 1930 PHYSICIAN: NIURKA ARREDONDO MD ADMIT DATE: 05/04/21/ER Draft Date of Exam:05/04/21 CT HEAD WO Procedure: CT head without contrast. Technique: Multiple contiguous axial images were obtained through the brain without the use of intravenous contrast. Auto Exposure Controls were utilized during the CT exam to meet ALARA standards for radiation dose reduction. Indication: Altered mental status. Comparison: 03/23/2021. Discussion: Diffuse brain volume loss is stable, likely age related. White matter hypoattenuation is nonspecific, though greater than expected for age related chronic small vessel ischemic disease, stable. No acute intracranial hemorrhage, mass, midline shift, hydrocephalus. There is a new large air-fluid level within the right maxillary sinus with frothy secretions, acute sinusitis. Otherwise the sinuses, mastoid air cells, orbits, and calvarium are unremarkable. Impression: 1. Stable senescent changes as described. No acute intracranial abnormality identified. 2. New acute right maxillary sinusitis. Dictated on workstation # [id number] Dict: 05/04/21 1202 Trans: 05/04/21 1207 CV [id number] Interpreted by: MAURILIO KERNS MD (NIURKA ARREDONDO MD) Departure Communication (Admissions) Time/Spoke to Admitting Phy: 13:[address] Rodgers (NIURKA ARREDONDO MD) Impression Primary Impression: Atrial fibrillation with RVR Additional Impressions: Urinary tract infection Qualified Codes: N39.0 - Urinary tract infection, site not specified Congestive heart failure Qualified Codes: I50.9 - Heart failure, unspecified Colitis Bilateral pleural effusion Disposition: ADMITTED INPATIENT Condition: Stable Admissions Decision to Admit Reason: Admit from ER (General) Decision to Admit/Date: May 04, 2021 Time/Decision to Admit Time: 10:30 (NIURKA ARREDONDO MD) Departure-Patient Inst. Referrals: NO,LOCAL PHYSICIAN (PCP/Family) Primary Care Physician Medical Student Attestation and Attending Note: I have personally interviewed and examined this patient along with SNOW Noriega. I have reviewed student documentation including history, physical, and assessments. I agree with the documentation except where otherwise noted. Exam: General: Alert, answers generally in yes and no terms, seems rather uncomfortable with shortness of breath HEENT: Normocephalic and atraumatic Neck: JVD Heart: Irregularly irregular, tachycardia Lungs: Clear to auscultation bilaterally, tachypnea Abdomen: Soft, flat but firm, mildly tender Neuropsych: Decreased alertness, disoriented, minimal verbal response to questions Skin: Warm and dry without rashes (NIURKA ARREDONDO MD) Copy Copies To 1: GLORIA LEE MD, DYLAN MED STUDENT May 04, 2021 10:55 NIURKA ARREDONDO MD May 04, 2021 11:35
[2021-05-04 11:14] LABS: TSH (THYROID ANALYZER) 7.53 UIU/ML (0.35-4.94)
--- NOTE | 2021-05-04 11:21 | Diagnostic Imaging Report ---
INDICATION: Chest pain COMPARISON: 03/24/2021 and 04/13/2019 TECHNIQUE: Single radiograph of the chest dated 05/04/2021. FINDINGS: The cardiac silhouette is enlarged. Mild central pulmonary vascular congestion. Moderate right and small left bibasilar pleural-parenchymal opacities are present, worsened on the right. The upper lungs are clear of focal pulmonary opacity. No pneumothorax. Scattered osseous degenerative changes without acute osseous abnormality. IMPRESSION: Slightly worsened moderate sized right basilar pleural-parenchymal opacity, related to a combination of pleural fluid with adjacent atelectasis and/or infiltrate. Slightly improved small left basilar pleural-parenchymal opacity. Persistent cardiomegaly with mild central pulmonary vascular congestion. Dictated by: Dictated on workstation # [id number]
[2021-05-04 11:47] LABS: FREE T4 (FREE THYROXINE) 0.91 NG/DL (0.70-1.48)
--- NOTE | 2021-05-04 12:07 | Diagnostic Imaging Report ---
Procedure: CT head without contrast. Technique: Multiple contiguous axial images were obtained through the brain without the use of intravenous contrast. Auto Exposure Controls were utilized during the CT exam to meet ALARA standards for radiation dose reduction. Indication: Altered mental status. Comparison: 03/23/2021. Discussion: Diffuse brain volume loss is stable, likely age related. White matter hypoattenuation is nonspecific, though greater than expected for age related chronic small vessel ischemic disease, stable. No acute intracranial hemorrhage, mass, midline shift, hydrocephalus. There is a new large air-fluid level within the right maxillary sinus with frothy secretions, acute sinusitis. Otherwise the sinuses, mastoid air cells, orbits, and calvarium are unremarkable. Impression: 1. Stable senescent changes as described. No acute intracranial abnormality identified. 2. New acute right maxillary sinusitis. Dictated by: Dictated on workstation # [id number]
--- NOTE | 2021-05-04 12:27 | Diagnostic Imaging Report ---
PROCEDURE: CT chest, abdomen, and pelvis without contrast. TECHNIQUE: Multiple contiguous axial images were obtained through the chest, abdomen, and pelvis without the use of intravenous contrast. Auto Exposure Controls were utilized during the CT exam to meet ALARA standards for radiation dose reduction. Indication: Dyspnea. Abdominal pain and distention. Comparison: 04/05/2021. Discussion: CHEST: Large layering right pleural effusion, increased from the prior. There is a small left effusion. Cardiomegaly is stable. Pulmonary artery hypertension is stable. Thoracic aorta is normal in caliber and configuration. Atelectasis is noted associated with the effusions. Some air bronchograms are noted within the right lower lobe. No adenopathy identified. Chronic compression deformities of the lower thoracic spine are stable. Pectus excavatum deformity is stable. ABDOMEN/PELVIS: The liver, gallbladder, pancreas, spleen, and adrenal glands are unremarkable. No renal stone or hydronephrosis. Severe atherosclerotic plaque throughout the aorta is stable. Anasarca is noted. Thick-walled inflamed descending colon suggesting colitis, likely infectious or inflammatory. No free air. Mild ascites is noted within the pelvis. Large dense mass is again noted anterior to the bladder measuring 11.6 x 6.9 cm, essentially stable. The bladder is decompressed by Angela catheter. No acute osseous abnormality. Impression: 1. Large right pleural effusion is increased from the prior exam. New small left pleural effusion. 2. Stable cardiomegaly and pulmonary artery hypertension. 3. Suspected hemorrhage within the pelvis, stable. 4. Stable anasarca and mild ascites. 5. New inflammatory changes along the descending colon consistent with colitis. Dictated by: Dictated on workstation # [id number]
[2021-05-04] MEDS ORDERED: MEROPENEM 500 MG in WATER (STERILE) FOR INJECTION 10 ML IV ONE (12:45)
[2021-05-04 13:20] LABS: CLARITY,URINE CLOUDY; COLOR,URINE YELLOW; GLUCOSE, URINE (UA) NEGATIVE (NEGATIVE); KETONES,URINE NEGATIVE (NEGATIVE); LEUKOCYTE ESTERASE ,URINE 1+ (NEGATIVE); NITRITE,URINE NEGATIVE (NEGATIVE); PROTEIN,URINE 2+ (NEGATIVE)
[2021-05-04 13:32] LABS: BILIRUBIN,URINE NEGATIVE (NEGATIVE)
[2021-05-04 13:33] LABS: BACTERIA,URINE LARGE /HPF; WBC,URINE >100 /HPF
[2021-05-04] MEDS ORDERED: FUROSEMIDE 40 MG/4 ML INJ (LASIX) IVP ONE (13:45)
[2021-05-04] MEDS ORDERED: ONDANSETRON 4 MG/2 ML (SDV) Z0FRAN IV PRN (14:45)
[2021-05-04] MEDS ORDERED: morphine INJ 4 MG/ML 1 ML (VIAL/SYRINGE) IV PRN ×2 (14:45→18:45)
--- NOTE | 2021-05-04 14:53 | Consultation - Surgery ---
MIRIAMJOSEMAURILIO SORIANO 05/04/21 1453: History of Present Illness History of Present Illness Patient Consulted On(real/time) 05/04/21 14:44 Date Seen by Provider: May 04, 2021 Time Seen by Provider: 14:31 History of Present Illness Previous HPI from ED - This is Nimisha an 89 yo female that presented via EMS from [facility] with the chief complaint of abdominal distention and discomfort. Pt is also experiencing new onset SOB on constant supplemental 02 of 3L. EMS states that upon first reaching the Pt her son was on scene and there is a history of him wanting her moved out of the facility. She stated that there is discomfort in the upper quadrants and firmness to palpation. Pt was a poor historian. Pt had a recent hospital stay 1 month ago for pneumonia and NSTEMI. According to the nursing staff there were signs and symptoms of a chronic blood loss but source is unknown. Patient was noted to have extreme tachycardia upon arrival to the ER. EMS notes this was an abrupt change as they were bringing her into the ER. She had associated shortness of breath. Abdomen was also noted to be firm and mildly tender. EKG was thought to be atrial flutter. Ad enosine 6 mg was administered without change. Adenosine 12 mg was administered and slow down the rhythm well enough to clearly see atrial fibrillation. Patient was started on Cardizem with good control of heart rate. She did at one point developed chest pain. 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 Troponin was elevated which was not unexpected for her atrial fibrillation with extreme tachycardia. Patient is not a candidate for invasive interventions due to her overall condition and based on her prior conversations with Dr. Myers. Patient was also found to have sources of infection including urinary tract infection and possible colitis on CT scan. Pelvic hematoma is unchanged from prior and cause of the hematoma is uncertain. Presence of hematoma is a contraindication for any anticoagulant therapy. Patient confirms DO NOT RESUSCITATE status and confirms that she does not want any invasive procedures done. We did discuss the concepts of comfort care and hospice. Patient and son seem to be in agreement with entertaining these ideas if she does not improve notably from her current state. Meropenem was started for initial antibiotic therapy. IV fluids were started but were stopped once the pleural effusion and elevated BNP were noted. Case was discussed with Dr. Justice, Dr. Myers, and Dr. Delacruz. Cardiac management was discussed with Dr. Myers and included asp irin, Toprol-XL, Lasix, and potassium replacement. When surgery arrived to consult, nursing was changing linens and a stage1 sacral decubitus ulcer was noted. Pt is awake but unable to answer questions, does respond to painful stimuli. Palpation of the abdomen reveals diffuse pain which is most pronounced on the right side. Pt is a poor surgical candidate due to advanced age, cardiac comorbidities and declining vitality. Allergies and Home Medications Allergies Coded Allergies: amoxicillin (Unverified Allergy, Unknown, 07/14/18) Patient Home Medication List Acetaminophen (Tylenol Extra Strength) 500 Mg Tablet, 1,000 MG PO Q6H PRN for PAIN-MILD (1-4), (Reported) Entered as Reported by: ALEJANDRINA ALMANZA on 03/20/21 1028 Aspirin (Aspirin) 81 Mg Tab.chew, 81 MG PO BID, (Reported) Entered as Reported by: ALEJANDRINA ALMANZA on 03/20/21 1033 Calcium Carbonate (Calcium Carbonate) 300 Mg Tab.chew, 750 MG PO Q12H PRN for STOMACH UPSET, (Reported) Entered as Reported by: ALEJANDRINA ALMANZA on 03/20/21 1028 Cholecalciferol (Vitamin D3) (Vitamin D3) 1,250 Mcg Capsule, 1,250 MCG PO WED, (Reported) Entered as Reported by: ALEJANDRINA ALMANAZ on 03/20/21 1028 Cholecalciferol (Vitamin D3) (Vitamin D3) 25 Mcg Capsule, 25 MCG PO DAILY, (Reported) Entered as Reported by: ALEJANDRINA ALMANZA on 03/20/21 1028 Diltiazem HCl (Diltiazem HCl) 60 Mg Tablet, 60 MG PO TID Prescribed by: ANDREI MACIAS on 04/10/21 0816 Docusate Sodium (Colace) 100 Mg Capsule, 100 MG PO DAILY, (Reported) Entered as Reported by: ALEJANDRINA ALMANZA on 03/20/21 1028 Furosemide (Furosemide) 20 Mg Tablet, 20 MG PO DAILY Prescribed by: ZACKERY DELACRUZ on 04/03/21 0723 Furosemide (Lasix) 20 Mg Tablet, 20 MG PO Q48H Prescribed by: ANDREI MACIAS on 04/10/21 0816 Magnesium Hydroxide (Milk of Magnesia) 2,400 Mg/10 Ml Oral.susp, 30 ML PO DAILY PRN for CONSTIPATION-7TH LINE, (Reported) Entered as Reported by: ALEJANDRINA ALMANZA on 03/25/21 1332 Mirtazapine (Mirtazapine) 15 Mg Tablet, 15 MG PO HS, (Reported) Entered as Reported by: ALEJANDRINA ALMANZA on 03/25/21 1329 Multivitamin with Minerals (Multivitamins with Minerals) 1 Each Tablet, 1 EACH PO DAILY, (Reported) Entered as Reported by: ALEJANDRINA ALMANZA on 03/25/21 1330 Spironolactone (Spironolactone) 25 Mg Tablet, 25 MG PO Q48H, (Reported) Entered as Reported by: ALEJANDRINA ALMANZA on 03/25/21 1329 Past Jmngavl-Gikcjd-Nuzfhg Hx Patient Social History Smoking Status: Unknown if Ever Smoked 2nd Hand Smoke Exposure: No Recent Hopitalizations: No Alcohol Use?: No Have you traveled recently?: No Immunizations Up To Date Tetanus Booster (TDap): Unknown Seasonal Allergies Seasonal Allergies: No Surgeries History of Surgeries: Yes (Cardiac and Peripheral in left leg Stent placement) Surgeries: Coronary Stent, 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, Orthopedic, Vascular Surgery Respiratory History of Respiratory Disorde: Yes (POST OP PNEUMONIA / RESP FAILURE 03/19/21) Respiratory Disorders: Pneumonia Cardiovascular History of Cardiac Disorders: Yes (AL in 86, EF 15-20% 01/2018; STENT IN HEART AND LEFT LEG;RBBB) Cardiac Disorders: Atrial Fibrillation, Cardiomyopathy, Coronary Artery Disease, Heart Attack, Hypertension, Peripheral Vascular Neurological History of Neurological Disord: No 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: 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 Genitourinary History of Genitourinary Disor: No Gastrointestinal History of Gastrointestinal Di: Yes Gastrointestinal Disorders: Chronic Constipation Musculoskeletal History of Musculoskeletal Dis: No Endocrine History of Endocrine Disorders: No HEENT History of HEENT Disorders: Yes HEENT Disorders: Glaucoma Cancer History of Cancer: Yes (2010) Cancer: Skin Psychosocial History of Psychiatric Problem: No Integumentary History of Skin or Integumenta: Yes Skin/Integumentary Disorders: Recent Skin Changes Blood Transfusions History of Blood Disorders: No Adverse Reaction to a Blood Tr: No Family Medical History Family Medial History: Hypertension 19 FATHER Review of Systems-General ROS-Unable to Obtain: Unable to obtain ROS - PT unable to answer questions Physical Exam-General Problems Physical Exam Vital Signs Vital Signs - First Documented 05/04/21 10:17 Temp 36.3 Pulse 152 Resp 30 B/P (MAP) 110/97 (101) Pulse Ox 100 O2 Delivery Nasal Cannula O2 Flow Rate 3.00 Capillary Refill : NONE General Appearance: moderate distress, cachetic, thin Eyes: Bilateral Eye EOMI HEENT: No scleral icterus (R), No scleral icterus (L) Respiratory: no respiratory distress, no accessory muscle use Cardiovascular: tachycardia Gastrointestinal: no organomegaly, no pulsatile mass, guarding, tenderness Rectal: deferred Extremities: no pedal edema Neurologic/Psychiatric: disoriented x 3 Skin: warm/dry, ecchymosis (stage 1 decubitus ulcer), pallor, rash Data Review Labs Laboratory Tests 05/04/21 10:25: White Blood Count 6.6, Red Blood Count 4.17, Hemoglobin 13.3, Hematocrit 45, Mean Corpuscular Volume 108H, Mean Corpuscular Hemoglobin 32, Mean Corpuscular Hemoglobin Concent 30L, Red Cell Distribution Width 18.2H, Platelet Count 180, Mean Platelet Volume 10.3, Immature Granulocyte % (Auto) 2, Neutrophils (%) (Auto) 73, Lymphocytes (%) (Auto) 16, Monocytes (%) (Auto) 8, Eosinophils (%) (Auto) 0, Basophils (%) (Auto) 1, Neutrophils # (Auto) 4.8, Lymphocytes # (Auto) 1.1, Monocytes # (Auto) 0.5, Eosinophils # (Auto) 0.0, Basophils # (Auto) 0.0, Immature Granulocyte # (Auto) 0.2H, Prothrombin Time 17.9H, INR Comment 1.4, Activated Partial Thromboplast Time 31, Sodium Level 143, Potassium Level 4.8, Chloride Level 100, Carbon Dioxide Level 26, Anion Gap 17H, Blood Urea Nitrogen 56H, Creatinine 1.51H, Estimat Glomerular Filtration Rate 33, BUN/Creatinine Ratio 37, Glucose Level 122H, Lactic Acid Level 3.99*H, Calcium Level 9.1, Corrected Calcium 9.4, Magnesium Level 2.3, Total Bilirubin 1.3H, Aspartate Amino Transf (AST/SGOT) 26, Alanine Aminotransferase (ALT/SGPT) 72H, Alkaline Phosphatase 114, Myoglobin 33.6, Troponin I 0.108H, C-Reactive Protein High Sensitivity 3.41H, B-Type Natriuretic Peptide 4618.9H, Total Protein 6.9, Albumin 3.6, Free Thyroxine 0.91, TSH Jewell Testing 7.53H 05/04/21 11:03: Urine Color YELLOW, Urine Clarity CLOUDY, Urine pH 6.0, Urine Specific Gazelle >=1.030, Urine Protein 2+H, Urine Glucose (UA) NEGATIVE, Urine Ketones NEGATIVE, Urine Nitrite NEGATIVE, Urine Bilirubin NEGATIVE, Urine Urobilinogen 4.0, Urine Leukocyte Esterase 1+H, Urine RBC (Auto) 3+H, Urine RBC 5-10H, Urine WBC >100H, Urine Squamous Epithelial Cells 2-5, Urine Crystals NONE, Urine Bacteria LARGEH, Urine Casts NONE, Urine Mucus NEGATIVE, Urine Culture Indicated YES 05/04/21 12:20: Lactic Acid Level 2.13*H Assessment/Plan Assessment/Plan Assessment/Plan A-fib with RVR Abdominal pain and distention with pelvic hematomoa, colitis and UTI. PT is declining and is a poor surgical candidate with a DNR. Non-surgcial conservative management is planed with hospice consult. Clinical Quality Measures AMI/AHF: ASA po Prior to arrival: BETH Phan DO 05/04/21 1633: History of Present Illness History of Present Illness Time Seen by Provider: 14:31 History of Present Illness Surgery consulted regarding abdominal pain, colitis on CT and elevated WBC. Pt answers to her name, but when asked about abdominal pain she denied it. However when pressing on her abdomen she said "ouch". All of this note obtained from chart. Allergies and Home Medications Allergies Coded Allergies: amoxicillin (Unverified Allergy, Unknown, 07/14/18) Patient Home Medication List Home Medication List Reviewed: Yes Acetaminophen (Tylenol Extra Strength) 500 Mg Tablet, 1,000 MG PO Q6H PRN for PAIN-MILD (1-4), (Reported) Entered as Reported by: ALEJANDRINA ALMANZA on 03/20/21 1028 Aspirin (Aspirin) 81 Mg Tab.chew, 81 MG PO BID, (Reported) Entered as Reported by: ALEJANDRINA ALMANZA on 03/20/21 1033 Calcium Carbonate (Calcium Carbonate) 300 Mg Tab.chew, 750 MG PO Q12H PRN for STOMACH UPSET, (Reported) Entered as Reported by: ALEJANDRINA ALMANZA on 03/20/21 1028 Cholecalciferol (Vitamin D3) (Vitamin D3) 1,250 Mcg Capsule, 1,250 MCG PO WED, (Reported) Entered as Reported by: ALEJANDRINA ALMANZA on 03/20/21 1028 Cholecalciferol (Vitamin D3) (Vitamin D3) 25 Mcg Capsule, 25 MCG PO DAILY, (Reported) Entered as Reported by: ALEJANDRINA ALMANZA on 03/20/21 1028 Diltiazem HCl (Diltiazem HCl) 60 Mg Tablet, 60 MG PO TID Prescribed by: ANDREI MACIAS on 04/10/21 0816 Docusate Sodium (Colace) 100 Mg Capsule, 100 MG PO DAILY, (Reported) Entered as Reported by: ALEJANDRINA ALMANZA on 03/20/21 1028 Furosemide (Furosemide) 20 Mg Tablet, 20 MG PO DAILY Prescribed by: ZACKERY DELACRUZ on 04/03/21 0723 Furosemide (Lasix) 20 Mg Tablet, 20 MG PO Q48H Prescribed by: ANDREI MACIAS on 04/10/21 0816 Magnesium Hydroxide (Milk of Magnesia) 2,400 Mg/10 Ml Oral.susp, 30 ML PO DAILY PRN for CONSTIPATION-7TH LINE, (Reported) Entered as Reported by: ALEJANDRINA ALMANZA on 03/25/21 1332 Mirtazapine (Mirtazapine) 15 Mg Tablet, 15 MG PO HS, (Reported) Entered as Reported by: ALEJANDRINA ALMANZA on 03/25/21 1329 Multivitamin with Minerals (Multivitamins with Minerals) 1 Each Tablet, 1 EACH PO DAILY, (Reported) Entered as Reported by: ALEJANDRINA ALMANZA on 03/25/21 1330 Spironolactone (Spironolactone) 25 Mg Tablet, 25 MG PO Q48H, (Reported) Entered as Reported by: ALEJANDRINA ALMANZA on 03/25/21 1329 Past Mcqzweu-Wsnons-Rurunc Hx Patient Social History Smoking Status: Unknown if Ever Smoked Cardiovascular History of Cardiac Disorders: Yes Cardiac Disorders: Atrial Fibrillation Family Medical History Significant Family History: Other Conditions/Hx (unable to obtain, pt cannot answer questions) Family Medial History: Hypertension 19 FATHER Review of Systems-General ROS-Unable to Obtain: Unable to obtain ROS - PT unable to answer questions Physical Exam-General Problems Physical Exam General Appearance: moderate distress, cachetic, thin Eyes: Bilateral Eye EOMI HEENT: No scleral icterus (R), No scleral icterus (L); other (poor dentition and mucous membranes are dry) Neck: supple Respiratory: no respiratory distress, no accessory muscle use, decreased breath sounds (right lung and dullness to percussion), crackles Cardiovascular: tachycardia, irregularly irregular Gastrointestinal: no organomegaly, no pulsatile mass, guarding, tenderness Extremities: no pedal edema, normal capillary refill Neurologic/Psychiatric: disoriented x 3 Skin: warm/dry, ecchymosis (stage 1 decubitus ulcer), pallor, rash Lymphatic: no adenopathy (neck, axilla or groin) Data Review Radiology Date of Exam:05/04/21 CT CHEST/ABDOMEN/PELVIS WO PROCEDURE: CT chest, abdomen, and pelvis without contrast. TECHNIQUE: Multiple contiguous axial images were obtained through the chest, abdomen, and pelvis without the use of intravenous contrast. Auto Exposure Controls were utilized during the CT exam to meet ALARA standards for radiation dose reduction. Indication: Dyspnea. Abdominal pain and distention. Comparison: 04/05/2021. Discussion: CHEST: Large layering right pleural effusion, increased from the prior. There is a small left effusion. Cardiomegaly is stable. Pulmonary artery hypertension is stable. Thoracic aorta is normal in caliber and configuration. Atelectasis is noted associated with the effusions. Some air bronchograms are noted within the right lower lobe. No adenopathy identified. Chronic compression deformities of the lower thoracic spine are stable. Pectus excavatum deformity is stable. ABDOMEN/PELVIS: The liver, gallbladder, pancreas, spleen, and adrenal glands are unremarkable. No renal stone or hydronephrosis. Severe atherosclerotic plaque throughout the aorta is stable. Anasarca is noted. Thick-walled inflamed descending colon suggesting colitis, likely infectious or inflammatory. No free air. Mild ascites is noted within the pelvis. Large dense mass is again noted anterior to the bladder measuring 11.6 x 6.9 cm, essentially stable. The bladder is decompressed by Angela catheter. No acute osseous abnormality. Impression: 1. Large right pleural effusion is increased from the prior exam. New small left pleural effusion. 2. Stable cardiomegaly and pulmonary artery hypertension. 3. Suspected hemorrhage within the pelvis, stable. 4. Stable anasarca and mild ascites. 5. New inflammatory changes along the descending colon consistent with colitis. Dictated by: Dictated on workstation # [id number] Dict: 05/04/21 1205 Trans: 05/04/21 1443 [facility] [id number] Interpreted by: MAURILIO KERNS MD Electronically signed by: MAURILIO KERNS MD 05/04/21 1443 Assessment/Plan Assessment/Plan Assessment/Plan A-fib with RVR Abdominal pain and distention Pelvic hematoma vs fluid Large Uterine mass Colitis UTI. PT is declining and is a poor surgical candidate with a DNR. Non-surgcial conservative management would be my recommendation with hospice consult. I am not sure what she even would need surgically at this point. Will follow along as needed. Supervisory-Addendum Brief Verification & Attestation Participated in pt care: history, MDM, physical Personally performed: exam, history, MDM, supervision of care Care discussed with: Medical Student Procedures: n/a Verification and Attestation of Medical Student E/M Service A medical student performed and documented this service. I then reviewed and verified all information documented by the medical student and made modifications to such information, when appropriate. I personally performed a physical exam, medical decision making and then discussed any differences between the notes and made revisions as necessary to create one note. Beth Justice , 05/04/21 , 16:33 MAURILIO GREENWOOD May 04, 2021 14:53 BETH JUSTICE DO May 04, 2021 16:33
--- NOTE | 2021-05-04 15:48 | Tele-ICU Consult ---
History of Present Illness History of Present Illness Date Seen by Provider: May 04, 2021 Time Seen by Provider: 15:42 History of Present Illness pt presented with abdominal distension and pain. new onset sob. In ER she is found to have afib with rvr, started on cardiazem drip. CT abdomen revealed stable appearence of pelvic hematoma. u/a suggestive of uti. poor historian. Allergies and Home Medications Allergies Coded Allergies: amoxicillin (Unverified Allergy, Unknown, 07/14/18) Home Medications Acetaminophen 500 Mg Tablet, 1,000 MG PO Q6H PRN for PAIN-MILD (1-4), (Reported) Aspirin 81 Mg Tab.chew, 81 MG PO BID, (Reported) Calcium Carbonate 300 Mg Tab.chew, 750 MG PO Q12H PRN for STOMACH UPSET, (Reported) Cholecalciferol (Vitamin D3) 1,250 Mcg Capsule, 1,250 MCG PO WED, (Reported) Cholecalciferol (Vitamin D3) 25 Mcg Capsule, 25 MCG PO DAILY, (Reported) Diltiazem HCl 60 Mg Tablet, 60 MG PO TID Prescribed by: ANDREI MACIAS on 04/10/21 0816 Docusate Sodium 100 Mg Capsule, 100 MG PO DAILY, (Reported) Furosemide 20 Mg Tablet, 20 MG PO DAILY Prescribed by: ZACKERY DELACRUZ on 04/03/21 0723 Furosemide 20 Mg Tablet, 20 MG PO Q48H Prescribed by: ANDREI MACIAS on 04/10/21 0816 Magnesium Hydroxide 2,400 Mg/10 Ml Oral.susp, 30 ML PO DAILY PRN for CONSTIPATION-7TH LINE, (Reported) Mirtazapine 15 Mg Tablet, 15 MG PO HS, (Reported) Multivitamin with Minerals 1 Each Tablet, 1 EACH PO DAILY, (Reported) Spironolactone 25 Mg Tablet, 25 MG PO Q48H, (Reported) Past Medical/Social/Family Hx Patient Social History Tobacco Use?: No Smoking Status: Unknown if Ever Smoked Substance use?: No Alcohol Use?: No Immunizations Up To Date Tetanus Booster (TDap): Unknown Current Status Advance Directives: No Communicates: Verbally Primary Language: Serbian Preferred Spoken Language: Serbian Is interpretation needed?: No Implanted or Applied Medical D: None Review of Systems Constitutional: see HPI Other ROS PER ATTENDING Sepsis Event Evaluation Sepsis Stage: Sepsis Height, Weight, BMI Height: 5'5.00" Weight: 107lbs. 1.0oz. 48.809373up; 16.00 BMI Method:Stated Exam Exam Patient acknowledged, consented, and participated in this virtual visit which was conducted using real time audio/video Vital Signs Date Time Temp Pulse Resp B/P (MAP) Pulse Ox O2 Delivery O2 Flow Rate FiO2 05/04/21 15:20 95 05/04/21 15:00 87 32 103/65 98 Nasal Cannula 3.00 05/04/21 14:45 88 35 107/71 97 Nasal Cannula 3.00 05/04/21 14:42 Nasal Cannula 3.00 05/04/21 14:09 96 32 115/101 100 05/04/21 10:17 36.3 152 30 110/97 (101) 100 05/04/21 10:17 Nasal Cannula 3.00 Height & Weight Height: 5'5.00" Weight: 107lbs. 1.0oz. 48.194409ib; 16.00 BMI Method:Stated General Appearance: Moderate Distress Capillary Refill: NONE Gastrointestinal: no organomegaly, no pulsatile mass, guarding, tenderness Other comments PE PER ATTENDING. Results Lab Laboratory Tests 05/04/21 10:25 Rad[address] REVIEWED CXR AND CT SCANS Assessment/Plan Assessment/Plan 1. NEW ONSET AFIB WITH RVR. 2. UTI, R/O SEPSIS. 3. ACUTE AND CHR. SYSTOLIC CHF. 4. HEMATOMA OF PELVIS, UNKNOWN ETIOLOGY, NOT A CANDIDATE FOR SURGERY 5. RT PLEURAL EFFUSION LIKELY FROM CHF. RECOMMENDATIONS. 1. IV LASIX. 2. IV MEROPENUM. 3. NOT A CANDIDATE FOR ANTICOAGULATION. 4. INCREASE MORPHINE TO 4 MG IVP PRN Q 4HRS. 5. CARDILOGY AND SURGICAL CONSULTATIONS HAVE BEEN REQUESTED. 6. SUPPLEMENTAL OXYGEN PER PROTOCOL. Critical Care: Critically Ill Patient Time spent with patient (mins): 45 AYAKA MUNOZ MD May 04, 2021 15:48
[2021-05-04] MEDS: FUROSEMIDE 40 MG/4 ML INJ (LASIX) IV SCH (16:04)
[2021-05-04] MEDS: MEROPENEM 500 MG/SWFI 10 ML IV PUSH IV SCH ×2 (16:05)
[2021-05-04] MEDS: KCL 10 MEQ TAB (MICRO K) PO SCH (16:14)
--- NOTE | 2021-05-04 16:35 | History & Physical-Hospitalist ---
History of Present Illness HPI/Chief Complaint Nimisha Hogan is an 89 year old female with PMH CAD, ischemic cardiomyopathy with HFrEF, paroxysmal atrial fibrillation, CKD3a, cachexia, decubitus ulcers, who presented from [facility] with abdominal pain and distension. She had an intraperitoneal hematoma during her most recent hospital stay and was not a surgical candidate due to her multiple comorbidities. She also has shortness of breath. She is not having fevers. She has no cough. She denies pain at the time of my exam. She appears uncomfortable. During her last stay, we had discussed hospice care and she said that she "wanted to go be with [place]". She and her son, Charles, ultimately decided to go back to [facility] with skilled services. Source: patient, RN/MD Exam Limitations: clinical condition Date Seen 05/04/21 Time Seen by a Provider: 16:20 Attending Physician Zackery Bryant MD PCP Elijah Alvarado MD Referring Physician Date of Admission May 04, 2021 at 13:47 Home Medications & Allergies Home Medications Reviewed patient Home Medication Reconciliation performed by pharmacy medication reconciliations investment recovery technician and/or nursing. Patients Allergies have been reviewed. Allergies Allergies Coded Allergies amoxicillin (Unverified Allergy, Unknown, 07/14/18) Past Hhcukih-Fyietf-Xtunrg Hx Patient Social History Tobacco Use?: No Smoking Status: Unknown if Ever Smoked Substance use?: No Alcohol Use?: No Immunizations Up To Date Tetanus Booster (TDap): Unknown Seasonal Allergies Seasonal Allergies: No Current Status Advance Directives: No Communicates: Verbally Primary Language: Swazi Preferred Spoken Language: Swazi Is interpretation needed?: No Implanted or Applied Medical D: None Past Medical History Surgeries: Coronary Stent, 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, Orthopedic, Vascular Surgery Pneumonia Atrial Fibrillation, Cardiomyopathy, Coronary Artery Disease, Heart Attack, Hypertension, 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 Chronic Constipation Glaucoma Skin Did You Recieve Any Treatments: Yes What Type of Treatment Did You: Surgical Intervention Recent Skin Changes Blood Disorders: No Adverse Reaction/Blood Tranf: No Family Medical History Hypertension 21 FATHER Review of Systems Constitutional: weakness EENTM: no symptoms reported Respiratory: short of breath Cardiovascular: no symptoms reported Gastrointestinal: abdominal pain Genitourinary: no symptoms reported Musculoskeletal: no symptoms reported Skin: no symptoms reported Psychiatric/Neurological: No Symptoms Reported Physical Exam Physical Exam Vital Signs Vital Signs - First Documented 05/04/21 10:17 Temp 36.3 Pulse 152 Resp 30 B/P (MAP) 110/97 (101) Pulse Ox 100 O2 Delivery Nasal Cannula O2 Flow Rate 3.00 Capillary Refill : NONE Height, Weight, BMI Height: 5'5.00" Weight: 107lbs. 1.0oz. 48.136024ia; 16.00 BMI Method:Stated General Appearance: Anxious, Chronically ill, Cachetic, Mild Distress HEENT: PERRL/EOMI, Pharynx Normal Neck: Normal Inspection, Supple Respiratory: Decreased Breath Sounds, Respiratory Distress (tachypnea) Cardiovascular: Systolic Murmur, Irregularly Irregular, Tachycardia Gastrointestinal: Normal Bowel Sounds, Non Tender, Soft; No Distended Extremity: Normal Inspection, Non Tender, Swelling (3+ pitting edema) Neurologic/Psychiatric: Alert, Depressed Affect, Motor Weakness Skin: Warm/Dry, Pallor, Other (decubitus ulcers on heels, left leg, and buttocks) Results Results/Procedures Labs Laboratory Tests 05/04/21 10:25 Patient resulted labs reviewed. Imaging: Reviewed Imaging Report Assessment/Plan Admission Diagnosis Severe sepsis due to urinary tract infection Admission Status: Inpatient Order (span 2 midnights) Reason for Inpatient Admission: IV antibiotics Assessment and Plan Severe sepsis due to UTI Lactic acidosis LENA on CKD3a UA consistent with UTI Urine culture pending Started on Meropenem Lactic acid nearly 4 on arrival Improved to 2 Started on diuretics due to fluid overload Ischemic cardiomyopathy 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 Bilateral pleural effusions CAD AFib with RVR NSTEMI Started on IV Diltiazem Anticoagulation held due to recent intraperitoneal bleed Most recent EF 10-15%, grade II diastolic dysfunction IV diuresis Cardiology consulted, appreciate assistance Cachexia Debility Decubitus ulcers Poor prognosis Advanced age Goals of care discussion DNR on admission Recommended comfort measures to sonCharles, wants to continue aggressive care Recommended hospice if/when she discharges Consult palliative care DVT prophylaxis: held due to recent bleeding Critical Care Critically Ill Patient Diagnosis/Problems Diagnosis/Problems (1) Severe sepsis Status: Acute (2) UTI (urinary tract infection) Status: Acute (3) Lactic acidosis Status: Acute (4) Acute kidney injury superimposed on chronic kidney disease Status: Acute (5) Stage 3a chronic kidney disease Status: Chronic (6) Intraperitoneal hematoma Status: Acute (7) Cachexia Status: Acute (8) Severe protein-calorie malnutrition Status: Acute (9) Bilateral pleural effusion Status: Acute (10) Atrial fibrillation with RVR Status: Acute (11) NSTEMI (non-ST elevation myocardial infarction) Status: Acute (12) Poor prognosis Status: Acute (13) Advanced age Status: Chronic (14) Ischemic cardiomyopathy Status: Chronic (15) Acute on chronic heart failure with reduced ejection fraction and diastolic dysfunction Status: Acute (16) Debility Status: Acute (17) Decubitus ulcers Status: Acute Clinical Quality Measures AMI/AHF: ASA po Prior to arrival: ZACKERY Byrd MD May 04, 2021 16:35
[2021-05-05] MEDS: MEROPENEM 500 MG/SWFI 10 ML IV PUSH IV SCH ×4 (04:11→15:48)
[2021-05-05 05:41] LABS: TRIGLYCERIDES 113 MG/DL (<150); VLDL CHOLESTEROL 23 MG/DL (5-40)
[2021-05-05 05:46] LABS: CHOLESTEROL 172 MG/DL (< 200)
[2021-05-05 05:47] LABS: HDL CHOLESTEROL 37 MG/DL (40-60)
[2021-05-05] MEDS: FUROSEMIDE 40 MG/4 ML INJ (LASIX) IV SCH ×2 (06:13→17:07)
[2021-05-05] MEDS: ASPIRIN 81 MG CHEW (CHILDREN'S ASA) PO SCH (08:07)
[2021-05-05] MEDS: KCL 10 MEQ TAB (MICRO K) PO SCH ×2 (08:07→08:17)
--- NOTE | 2021-05-05 10:31 | Progress Note - Surgery ---
KRYSTYNAMAURILIO 05/05/21 1031: Subjective Date Seen by a Provider: May 05, 2021 Time Seen by a Provider: 08:03 Subjective/Events-last exam Pt was awake and able to answer questions this morning, but remains a poor historian. She was consuming a liquid diet without issue. Palpation of the abdomen reveals diffuse pain which is most pronounced on the right side. Pt is a poor surgical candidate due to advanced age, cardiac comorbidities and declining vitality. Review of Systems Cardiovascular: No: Chest Pain Gastrointestinal: Abdominal Pain Musculoskeletal: No: neck pain, shoulder pain, arm pain, back pain, hand pain, leg pain, foot pain Neurological: Weakness, Confusion Focused Exam Lactate Level 05/04/21 12:20: Lactic Acid Level 2.13*H 05/04/21 15:21: Lactic Acid Level 2.06*H 05/04/21 17:33: Lactic Acid Level 1.46 Objective Exam Vital Signs Date Time Temp Pulse Resp B/P (MAP) Pulse Ox O2 Delivery O2 Flow Rate FiO2 05/05/21 10:00 92 100/63 98 Nasal Cannula 3.00 05/05/21 09:00 86 38 109/68 98 Nasal Cannula 3.00 05/05/21 08:00 105 32 90/76 97 Nasal Cannula 3.00 05/05/21 07:45 36.4 05/05/21 07:38 Nasal Cannula 2.00 05/05/21 07:00 118 27 130/78 96 Nasal Cannula 3.00 05/05/21 07:00 121 05/05/21 06:40 121 22 109/90 100 Nasal Cannula 3.00 05/05/21 05:40 103 18 113/79 94 Nasal Cannula 3.00 05/05/21 05:00 113 33 99/88 99 Nasal Cannula 3.00 05/05/21 04:40 108 18 104/95 98 Nasal Cannula 3.00 05/05/21 04:00 Nasal Cannula 3.00 05/05/21 03:40 36.2 112 22 96/62 99 Nasal Cannula 3.00 05/05/21 02:40 106 20 101/61 96 Nasal Cannula 3.00 05/05/21 02:00 124 31 101/89 99 Nasal Cannula 3.00 05/05/21 01:00 140 05/05/21 01:00 128 24 97/70 100 Nasal Cannula 3.00 05/05/21 00:00 36.1 128 18 103/72 99 Nasal Cannula 3.00 05/05/21 00:00 Nasal Cannula 3.00 05/04/21 23:00 103 19 110/65 100 Nasal Cannula 3.00 05/04/21 22:00 106 38 88/77 100 Nasal Cannula 3.00 05/04/21 21:00 105 26 90/60 99 Nasal Cannula 3.00 05/04/21 20:00 Nasal Cannula 3.00 05/04/21 20:00 128 18 103/72 99 Nasal Cannula 3.00 05/04/21 19:35 36.3 05/04/21 19:00 118 05/04/21 19:00 115 22 86/62 100 Nasal Cannula 3.00 05/04/21 18:00 121 101/88 100 Nasal Cannula 3.00 05/04/21 17:00 130 30 109/99 100 Nasal Cannula 3.00 05/04/21 16:29 Nasal Cannula 3.00 05/04/21 16:00 99 36 105/84 96 Nasal Cannula 3.00 05/04/21 15:44 36.1 05/04/21 15:20 95 05/04/21 15:00 87 32 103/65 98 Nasal Cannula 3.00 05/04/21 14:45 88 35 107/71 97 Nasal Cannula 3.00 05/04/21 14:42 Nasal Cannula 3.00 05/04/21 14:09 96 32 115/101 100 I & O0 05/05/21 07:00 Intake Total 370 ml Output Total 675 ml Balance -305 ml Capillary Refill : NONE General Appearance: Anxious, Chronically ill, Cachetic HEENT: PERRL/EOMI, Pharynx Normal Neck: Non Tender, Supple Respiratory: Decreased Breath Sounds, Respiratory Distress (tachypnea), Other (diminished breath sounds on right side) Cardiovascular: Systolic Murmur, Irregularly Irregular, Tachycardia Peripheral Pulses: 1+ Radial Pulses (R), 1+ Radial Pulses (L) Gastrointestinal: tenderness (Mild diffuse tenderness), other (Firm in LLQ) Extremity: Normal Inspection, Non Tender, Swelling (3+ pitting edema) Neurologic/Psychiatric: Alert, Depressed Affect, Motor Weakness Skin: Warm/Dry, Pallor Lymphatic: No Adenopathy (cerival or axillary) Results Lab Laboratory Tests 05/04/21 11:03: Urine Color YELLOW, Urine Clarity CLOUDY, Urine pH 6.0, Urine Specific [place] >=1.030, Urine Protein 2+H, Urine Glucose (UA) NEGATIVE, Urine Ketones NEGATIVE, Urine Nitrite NEGATIVE, Urine Bilirubin NEGATIVE, Urine Urobilinogen 4.0, Urine Leukocyte Esterase 1+H, Urine RBC (Auto) 3+H, Urine RBC 5-10H, Urine WBC >100H, Urine Squamous Epithelial Cells 2-5, Urine Crystals NONE, Urine Bacteria LARGEH, Urine Casts NONE, Urine Mucus NEGATIVE, Urine Culture Indicated YES 05/04/21 12:20: Lactic Acid Level 2.13*H 05/04/21 15:21: Lactic Acid Level 2.06*H 05/04/21 17:33: Lactic Acid Level 1.46 05/05/21 04:55: Triglycerides Level 113, Cholesterol Level 172, LDL Cholesterol Direct 121, VLDL Cholesterol 23, HDL Cholesterol 37L Microbiology 05/04/21 Urine Culture - Preliminary, Resulted Proteus Group Gram Negative Ad[place] Assessment/Plan Assessment/Plan Assessment/Plan A-fib with RVR Abdominal pain and distention Plural effusion Pelvic hematoma vs fluid Large Uterine mass Colitis UTI. PT is declining and is a poor surgical candidate with a DNR. Non-surgcial conservative management would be my recommendation with hospice consult. Will follow along as needed. Clinical Quality Measures AMI/AHF: ASA po Prior to arrival: Julia ESPINOZADIANABETH DO 05/05/21 1231: Subjective Time Seen by a Provider: 10:43 Subjective/Events-last exam Pt seen and examined, answering some questions but not consistently and still confused. Review of Systems Cardiovascular: No: Chest Pain Gastrointestinal: Abdominal Pain Objective Exam General Appearance: Anxious, Chronically ill, Cachetic Respiratory: Decreased Breath Sounds, Other (diminished breath sounds on right side, tachypnic) Cardiovascular: Systolic Murmur, Irregularly Irregular, Tachycardia Gastrointestinal: soft, tenderness (Mild diffuse tenderness), other (Firm in L LQ) Assessment/Plan Assessment/Plan Assessment/Plan A-fib with RVR Abdominal pain and distention Plural effusion Pelvic hematoma vs fluid Large Uterine mass Colitis UTI. PT is declining and is a poor surgical candidate with a DNR. Non-surgcial conservative management would be my recommendation with hospice consult. Will follow along as needed. Supervisory-Addendum Brief Verification & Attestation Participated in pt care: history, MDM, physical Personally performed: exam, history, MDM, supervision of care Care discussed with: Medical Student Procedures: n/a Verification and Attestation of Medical Student E/M Service A medical student performed and documented this service. I then reviewed and verified all information documented by the medical student and made modifications to such information, when appropriate. I personally performed a physical exam, medical decision making and then discussed any differences between the notes and made revisions as necessary to create one note. Beth Rodgers , 05/05/21 , 12:31 MAURILIO GREENWOOD May 05, 2021 10:31 BETH RODGERS DO May 05, 2021 12:31
[2021-05-05 10:46] LABS: BASOPHILS # (AUTO) 0.1 10^3/uL (0.0-0.1); BASOPHILS % (AUTO) 1 % (0-10); EOSINOPHILS % (AUTO) 0 % (0-10); HEMATOCRIT 44 % (35-52); HEMOGLOBIN 12.9 g/dL (11.5-16.0); LYMPHOCYTES # (AUTO) 1.2 10^3/uL (1.0-4.0); LYMPHOCYTES % (AUTO) 16 % (12-44); MEAN CORPUSCULAR HEMOGLOBIN 32 pg (25-34); MEAN CORPUSCULAR HGB CONC 30 g/dL (32-36); MEAN CORPUSCULAR VOLUME 109 fL (80-99); MEAN PLATELET VOLUME 10.7 fL (9.0-12.2); MONOCYTES # (AUTO) 0.8 10^3/uL (0.0-1.0); MONOCYTES % (AUTO) 11 % (0-12); NEUTROPHILS # (AUTO) 5.2 10^3/uL (1.8-7.8); NEUTROPHILS % (AUTO) 70 % (42-75); PLATELET COUNT 153 10^3/uL (130-400); WHITE BLOOD COUNT 7.4 10^3/uL (4.3-11.0)
[2021-05-05 10:48] LABS: SMEAR SCAN COMMENT YES
[2021-05-05 10:59] LABS: CALCIUM 8.9 MG/DL (8.5-10.1); CREATININE SERUM 1.39 MG/DL (0.60-1.30); POTASSIUM 4.9 MMOL/L (3.6-5.0)
--- NOTE | 2021-05-05 11:36 | Tele-ICU Progress Note ---
Subjective Date Seen by a Provider: May 05, 2021 Time Seen by a Provider: 11:36 Sepsis Event Evaluation Height, Weight, BMI Height: 5'5.00" Weight: 107lbs. 1.0oz. 48.027181di; 16.00 BMI Method:Stated Focused Exam Lactate Level 05/04/21 12:20: Lactic Acid Level 2.13*H 05/04/21 15:21: Lactic Acid Level 2.06*H 05/04/21 17:33: Lactic Acid Level 1.46 Exam Exam Patient acknowledged, consented, and participated in this virtual visit which was conducted using real time audio/video Vital Signs Date Time Temp Pulse Resp B/P (MAP) Pulse Ox O2 Delivery O2 Flow Rate FiO2 05/05/21 11:00 101 16 107/80 95 Nasal Cannula 3.00 05/05/21 10:00 92 100/63 98 Nasal Cannula 3.00 05/05/21 09:00 86 38 109/68 98 Nasal Cannula 3.00 05/05/21 08:00 105 32 90/76 97 Nasal Cannula 3.00 05/05/21 07:45 36.4 05/05/21 07:38 Nasal Cannula 2.00 05/05/21 07:00 118 27 130/78 96 Nasal Cannula 3.00 05/05/21 07:00 121 05/05/21 06:40 121 22 109/90 100 Nasal Cannula 3.00 05/05/21 05:40 103 18 113/79 94 Nasal Cannula 3.00 05/05/21 05:00 113 33 99/88 99 Nasal Cannula 3.00 05/05/21 04:40 108 18 104/95 98 Nasal Cannula 3.00 05/05/21 04:00 Nasal Cannula 3.00 05/05/21 03:40 36.2 112 22 96/62 99 Nasal Cannula 3.00 05/05/21 02:40 106 20 101/61 96 Nasal Cannula 3.00 05/05/21 02:00 124 31 101/89 99 Nasal Cannula 3.00 05/05/21 01:00 140 05/05/21 01:00 128 24 97/70 100 Nasal Cannula 3.00 05/05/21 00:00 36.1 128 18 103/72 99 Nasal Cannula 3.00 05/05/21 00:00 Nasal Cannula 3.00 05/04/21 23:00 103 19 110/65 100 Nasal Cannula 3.00 05/04/21 22:00 106 38 88/77 100 Nasal Cannula 3.00 05/04/21 21:00 105 26 90/60 99 Nasal Cannula 3.00 05/04/21 20:00 Nasal Cannula 3.00 05/04/21 20:00 128 18 103/72 99 Nasal Cannula 3.00 05/04/21 19:35 36.3 05/04/21 19:00 118 05/04/21 19:00 115 22 86/62 100 Nasal Cannula 3.00 05/04/21 18:00 121 101/88 100 Nasal Cannula 3.00 05/04/21 17:00 130 30 109/99 100 Nasal Cannula 3.00 05/04/21 16:29 Nasal Cannula 3.00 05/04/21 16:00 99 36 105/84 96 Nasal Cannula 3.00 05/04/21 15:44 36.1 05/04/21 15:20 95 05/04/21 15:00 87 32 103/65 98 Nasal Cannula 3.00 05/04/21 14:45 88 35 107/71 97 Nasal Cannula 3.00 05/04/21 14:42 Nasal Cannula 3.00 05/04/21 14:09 96 32 115/101 100 I & O 05/05/21 07:00 Intake Total 370 ml Output Total 675 ml Balance -305 ml Height & Weight Height: 5'5.00" Weight: 107lbs. 1.0oz. 48.642669pk; 16.00 BMI Method:Stated General Appearance: Anxious, Chronically ill, Cachetic HEENT: PERRL/EOMI, Pharynx Normal Neck: Non Tender, Supple Respiratory: Decreased Breath Sounds, Respiratory Distress (tachypnea), Other (diminished breath sounds on right side) Cardiovascular: Systolic Murmur, Irregularly Irregular, Tachycardia Capillary Refill: NONE Peripheral Pulses: 1+ Radial Pulses (R), 1+ Radial Pulses (L) Gastrointestinal: tenderness (Mild diffuse tenderness), other (Firm in LLQ) Extremity: Normal Inspection, Non Tender, Swelling (3+ pitting edema) Neurologic/Psychiatric: Alert, Depressed Affect, Motor Weakness Skin: Warm/Dry, Pallor Lymphatic: No Adenopathy (cerival or axillary) Results Lab Laboratory Tests 05/04/21 10:25 05/05/21 04:55 Assessment/Plan Assessment/Plan (Tele-ICU Physician , Progress Note ) Available chart/ vitals / labs / Images reviewed Video assessment done using teleICU camera, rest of exam as per RN Discussed with RN , EXAM PER RN Events overnight : Afebrile I/O = neg 200 Drips: Pressors: , hemodynamically stable Consultants: remy, riley Hospital course: (05/04) 89yr old female admitted with a UTI, colitis, afib rvr, CHF, and a pleural effusion A/P Severe sepsis due to UTI - not on pressors , improved LENA on CKD - improvinf UTI -Urine culture + proteus -on Meropenem Acute Resp insufficiency - Started on diuretics due to fluid overload 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, ICM -recent EF 10-15%, grade II diastolic dysfunction -- diuretic carefully Bilateral pleural effusions R>>>L - due to above ,monitor Abdominal pain and distention, Pelvic hematoma vs fluid, Large Uterine mass - sx consulted , poor surgical candidate, DNR - conservative management CAD, NSTEMI AFib with RVR - IV Diltiazem OFF THIS AM - OFF AC due to recent intraperitoneal bleed - as per cards Cachexia,Debility, Decubitus ulcers- as per PCP Poor prognosis palliative care consulted Lines : (Central Line Necessity Reviewed) Angela: + OG: Nutrition: Analgesia: Anxiety/ delirium VTE Prophylaxis: held due to recent bleeding Stress Ulcer Prophylaxis: Glycemic Control: Plans in collaboration with bedside consultants and IM MDs. Discussed with RN to reach out if any questions or concerns A total of 36 minutes of critical care time was devoted to this patient today, required to treat and/or prevent further deterioration of critical care condition ( as above) . GEORGINA PERES MD May 05, 2021 11:36
--- NOTE | 2021-05-05 13:14 | Progress Note - Hospitalist ---
Subjective HPI/CC On Admission Date Seen by Provider: May 05, 2021 Time Seen by Provider: 09:30 Nimisha Hogan is an 89 year old female with PMH CAD, ischemic cardiomyopathy with HFrEF, paroxysmal atrial fibrillation, CKD3a, cachexia, decubitus ulcers, who presented from [facility] with abdominal pain and distension. She had an intraperitoneal hematoma during her most recent hospital stay and was not a surgical candidate due to her multiple comorbidities. She also has shortness of breath. She is not having fevers. She has no cough. She denies pain at the time of my exam. She appears uncomfortable. During her last stay, we had discussed hospice care and she said that she "wanted to go be with [place]". She and her son, Charles, ultimately decided to go back to [facility] with skilled services. Subjective/Events-last exam She is more awake this morning. She is done obesity.. She is short of breath. We discussed goals of care and after her infection is treated she would like to be made comfortable. She wants to go home with her son on hospice. She does not want to do physical therapy anymore. She does not want to take pills that are hard to swallow. Focused Exam Lactate Level 05/04/21 12:20: Lactic Acid Level 2.13*H 05/04/21 15:21: Lactic Acid Level 2.06*H 05/04/21 17:33: Lactic Acid Level 1.46 Objective Exam Vital Signs Vital Signs Date Time Temp Pulse Resp B/P (MAP) Pulse Ox O2 Delivery O2 Flow Rate FiO2 05/05/21 12:10 Nasal Cannula 1.00 05/05/21 12:00 36.4 05/05/21 12:00 85 25 94/53 97 Capillary Refill : NONE General Appearance: Anxious, Chronically ill, Cachetic Respiratory: No Respiratory Distress, Crackles, Decreased Breath Sounds Cardiovascular: Systolic Murmur, Irregularly Irregular Gastrointestinal: Normal Bowel Sounds, Non Tender; No Distended Extremity: Swelling, Other (Bilateral lower extremities tender to palpation) Neurologic/Psychiatric: Alert, Oriented x3, Depressed Affect, Motor Weakness Skin: Warm/Dry, Pallor Results/Procedures Lab Laboratory Tests 05/05/21 04:55 Patient resulted labs reviewed. Imaging: Reviewed Imaging Report Assessment/Plan Assessment and Plan Assess & Plan/Chief Complaint Severe sepsis due to UTI LENA on CKD3a UA consistent with UTI Urine culture with Proteus and gram negative bella, final ID and susceptibilties pending Continue Meropenem Continue diuretics due to fluid overload Ischemic cardiomyopathy 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 Bilateral pleural effusions CAD AFib with RVR NSTEMI Started on IV Diltiazem Anticoagulation held due to recent intraperitoneal bleed Most recent EF 10-15%, grade II diastolic dysfunction IV diuresis Cardiology consulted, appreciate assistance Cachexia Debility Decubitus ulcers Poor prognosis Advanced age Goals of care discussion DNR on admission Patient wants to go home on hospice Consult palliative care DVT prophylaxis: held due to recent bleeding Lactic acidosis, resolved Critical Care Critically Ill Patient Diagnosis/Problems Diagnosis/Problems (1) Severe sepsis Status: Acute (2) UTI (urinary tract infection) Status: Acute (3) Lactic acidosis Status: Resolved Resolution Date/Time: 05/05/21 @ 13:14 (4) Acute kidney injury superimposed on chronic kidney disease Status: Acute (5) Stage 3a chronic kidney disease Status: Chronic (6) Intraperitoneal hematoma Status: Acute (7) Cachexia Status: Acute (8) Severe protein-calorie malnutrition Status: Acute (9) Bilateral pleural effusion Status: Acute (10) Atrial fibrillation with RVR Status: Acute (11) NSTEMI (non-ST elevation myocardial infarction) Status: Acute (12) Poor prognosis Status: Acute (13) Advanced age Status: Chronic (14) Ischemic cardiomyopathy Status: Chronic (15) Acute on chronic heart failure with reduced ejection fraction and diastolic dysfunction Status: Acute (16) Debility Status: Acute (17) Decubitus ulcers Status: Acute Clinical Quality Measures AMI/AHF: ASA po Prior to arrival: ZACKERY Byrd MD May 05, 2021 13:14
[2021-05-05] MEDS ORDERED: NS (IVPB) 200 ML IV ONE (14:00)
--- NOTE | 2021-05-05 15:23 | Consultation-Cardiology ---
HPI-Cardiology Cardiology Consultation: Date of Consultation 05/05/21 Time Seen by a Provider: 13:30 Date of Admission Attending Physician Zackery Delacruz MD Admitting Physician Elijah Alvarado MD Consulting Physician DAWNA FOOTE MD, MA, FACP, FACC, FSCAI, CCDS HPI: Chief Complaint: CC: abdominal discomfort, gen malaise HPI 89 yo woman, [facility], admitted to the [facility] yesterday with gen malaise and abd discomfort. Does not report cp. Has chronic gen malaise and weakness. Denies palp or syncope. Denies swelling. Was found to have A Fib with RVR at admission Review of Systems-Cardiology Review of Systems Constitutional: malaise, tiredness; No weight loss, No weight gain Eyes: No vision change Ears/Nose/Throat: No ear discharge, No nasal drainage, No recent hearing loss Respiratory: As described under HPI Cardiovascular: As described under HPI Gastrointestinal: No nausea, No vomiting Genitourinary: No dysuria, No hematuria, No urine frequency changes Musculoskeletal: back pain (chroni) Skin: No rash, No ulcerations Psychiatric/Neurological: No seizure, No focal weakness, No syncope Hematologic: No bleeding abnormalities [id number]-Raipfy Hx Patient Social History Smoking Status: Unknown if Ever Smoked 2nd Hand Smoke Exposure: No Have you traveled recently?: No Alcohol Use?: No Immunizations Up To Date Tetanus Booster (TDap): Unknown Past Medical History PMH As described under Assessment. Family Medical History Family Medical History: She has previously reported that her brother had an NC at age 59 Family History: Hypertension 19 FATHER Allergies and Home Medications Allergies Coded Allergies: amoxicillin (Unverified Allergy, Unknown, 07/14/18) Patient Home Medication List Home Medication List Reviewed: Yes Acetaminophen (Tylenol Extra Strength) 500 Mg Tablet, 1,000 MG PO Q6H PRN for PAIN-MILD (1-4), (Reported) Entered as Reported by: ALEJANDRINA ALMANZA on 03/20/21 1028 Aspirin (Aspirin) 81 Mg Tab.chew, 81 MG PO BID, (Reported) Entered as Reported by: ALEJANDRINA ALMANZA on 03/20/21 1033 Calcium Carbonate (Calcium Carbonate) 300 Mg Tab.chew, 750 MG PO Q12H PRN for STOMACH UPSET, (Reported) Entered as Reported by: ALEJANDRINA ALMANZA on 03/20/21 1028 Cholecalciferol (Vitamin D3) (Vitamin D3) 1,250 Mcg Capsule, 1,250 MCG PO WED, (Reported) Entered as Reported by: ALEJANDRINA ALMANZA on 03/20/21 1028 Cholecalciferol (Vitamin D3) (Vitamin D3) 25 Mcg Capsule, 25 MCG PO DAILY, (Reported) Entered as Reported by: ALEJANDRINA ALMANZA on 03/20/21 1028 Diltiazem HCl (Diltiazem HCl) 60 Mg Tablet, 60 MG PO TID Prescribed by: ANDREI MACIAS on 04/10/21 0816 Docusate Sodium (Colace) 100 Mg Capsule, 100 MG PO DAILY, (Reported) Entered as Reported by: ALEJANDRINA ALMANZA on 03/20/21 1028 Furosemide (Furosemide) 20 Mg Tablet, 20 MG PO DAILY Prescribed by: ZACKERY DELACRUZ on 04/03/21 0723 Furosemide (Lasix) 20 Mg Tablet, 20 MG PO Q48H Prescribed by: ANDREI MACIAS on 04/10/21 0816 Magnesium Hydroxide (Milk of Magnesia) 2,400 Mg/10 Ml Oral.susp, 30 ML PO DAILY PRN for CONSTIPATION-7TH LINE, (Reported) Entered as Reported by: ALEJANDRINA ALMANZA on 03/25/21 1332 Mirtazapine (Mirtazapine) 15 Mg Tablet, 15 MG PO HS, (Reported) Entered as Reported by: ALEJANDRINA ALMANZA on 03/25/21 1329 Multivitamin with Minerals (Multivitamins with Minerals) 1 Each Tablet, 1 EACH PO DAILY, (Reported) Entered as Reported by: ALEJANDRINA ALMANZA on 03/25/21 1330 Spironolactone (Spironolactone) 25 Mg Tablet, 25 MG PO Q48H, (Reported) Entered as Reported by: ALEJANDRINA ALMANZA on 03/25/21 1329 Physical Exam-Cardiology Physical Exam Vital Signs/I&O 05/05/21 05/05/21 05/05/21 05/05/21 03:40 04:00 04:40 05:00 Temp 36.2 Pulse 112 108 113 Resp 22 18 33 B/P (MAP) 96/62 104/95 99/88 Pulse Ox 99 98 99 O2 Delivery Nasal Cannula Nasal Cannula Nasal Cannula Nasal Cannula O2 Flow Rate 3.00 3.00 3.00 3.00 05/05/21 05/05/21 05/05/21 05/05/21 05:40 06:40 07:00 07:00 Pulse 103 121 121 118 Resp 18 22 27 B/P (MAP) 113/79 109/90 130/78 Pulse Ox 94 100 96 O2 Delivery Nasal Cannula Nasal Cannula Nasal Cannula O2 Flow Rate 3.00 3.00 3.00 05/05/21 05/05/21 05/05/21 05/05/21 07:38 07:45 08:00 09:00 Temp 36.4 Pulse 105 86 Resp 32 38 B/P (MAP) 90/76 109/68 Pulse Ox 97 98 O2 Delivery Nasal Cannula Nasal Cannula Nasal Cannula O2 Flow Rate 2.00 3.00 3.00 05/05/21 05/05/21 05/05/21 05/05/21 10:00 11:00 12:00 12:00 Temp 36.4 Pulse 92 101 85 Resp 16 25 B/P (MAP) 100/63 107/80 94/53 Pulse Ox 98 95 97 O2 Delivery Nasal Cannula Nasal Cannula Nasal Cannula O2 Flow Rate 3.00 3.00 3.00 05/05/21 05/05/21 05/05/21 05/05/21 12:10 13:00 13:00 14:00 Pulse 80 87 82 Resp 18 25 B/P (MAP) 108/65 95/65 Pulse Ox 100 100 O2 Delivery Nasal Cannula Nasal Cannula Nasal Cannula O2 Flow Rate 1.00 3.00 3.00 05/05/21 14:25 Temp 36.1 Pulse 76 Resp 22 B/P (MAP) 100/63 Pulse Ox 96 O2 Delivery Nasal Cannula O2 Flow Rate 3.00 05/05/21 00:00 Intake Total 20 ml Output Total 400 ml Balance -380 ml Capillary Refill : NONE Constitutional: other (thin, underweight, flat affect, not forthcoming with history) HEENT: PERRL, EOMI Neck: carotid pulses are 2 + bilaterally, with good upstrokes Respiratory: No accessory muscle use; other (Diminishe bs at R base and dullness to percussion) Cardiovascular: irregularly irregular, S1 and S2, systolic murmur (soft NICOLETTE at card base) Gastrointestinal: No tender; soft; No guarding, No rebound; audible bowel sounds Rectal: deferred Extremities: other (mild, bilat leg swelling); No clubbing, No cyanosis Neurologic/Psychiatric: other (seems to be able to move all limbs equally) Skin: No rash on exposed areas, No ulcerations on exposed areas Lymphatic: no adenopathy (neck, axilla or groin) Data Review Labs Laboratory Tests 05/04/21 15:21: Lactic Acid Level 2.06*H 05/04/21 17:33: Lactic Acid Level 1.46 05/05/21 04:55: White Blood Count 7.4, Red Blood Count 4.01, Hemoglobin 12.9, Hematocrit 44, Mean Corpuscular Volume 109H, Mean Corpuscular Hemoglobin 32, Mean Corpuscular Hemoglobin Concent 30L, Red Cell Distribution Width 18.2H, Platelet Count 153, Mean Platelet Volume 10.7, Immature Granulocyte % (Auto) 3, Neutrophils (%) (Auto) 70, Lymphocytes (%) (Auto) 16, Monocytes (%) (Auto) 11, Eosinophils (%) (Auto) 0, Basophils (%) (Auto) 1, Neutrophils # (Auto) 5.2, Lymphocytes # (Auto) 1.2, Monocytes # (Auto) 0.8, Eosinophils # (Auto) 0.0, Basophils # (Auto) 0.1, Immature Granulocyte # (Auto) 0.2H, Sodium Level 144, Potassium Level 4.9, Chloride Level 102, Carbon Dioxide Level 23, Anion Gap 19H, Blood Urea Nitrogen 60H, Creatinine 1.39H, Estimat Glomerular Filtration Rate 36, BUN/Creatinine Ratio 43, Glucose Level 73, Calcium Level 8.9, Triglycerides Level 113, Cholesterol Level 172, LDL Cholesterol Direct 121, VLDL Cholesterol 23, HDL Cholesterol 37L, Smear Scan YES Microbiology 05/04/21 Urine Culture - Preliminary, Resulted Proteus Group Gram Negative Adelso 05/04/21 Blood Culture - Preliminary, Resulted No growth Laboratory Tests 05/04/21 10:25 05/05/21 04:55 A/P-Cardiology Assessment/Admission Diagnosis Sepsis Ac on chronic resp failure due to conditions noted below - Right lower lobe pneumonia/atelectasis and a sizable right pleural effusion first seen on CT abd 04/05/[address] chest/abd of 05/04/21 Pelvic bleed/hematoma - first seen on CT on abd CT of 04/05/21 and again on 05/04/21 [id number] 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 Also not suitable for anticoag due to h/o spontaneous pelvic bleed Ortho - Recent (January 2021) R hip repair after hip fracture from a non-syncopal fall Low body mass and weakness and cachetic appearance - (worsening over 2019 and 2020) PAD - Peripheral angio of 07/10/17: ectatic abdominal aorta, aorto-iliac calcification, mod dz of renal arteries, diffuse mod disease of both sup fems, 90% ostial and prox stenosis of the L sup fem, single vessel (ant tibial) run off in both legs with 90% ostial stenoses of both ant tibs. Peripheral PCI on 07/10/17: balloon angioplasty of ostial L ant tib that reduced 90% ostial stenosis to less than 30% residual, balloon angioplasty and stenting (Absolute Pro 7 x 80 stent, dilated to 5 mm wilder) to the L prox sup fem that reduced stenosis form 90% to 0% residual - Seg pressures of 07/08/17 showed mild to mod PAD of the R leg (WALTER 0.85 on the R and TBI 0.74 on the R) and moderate to mod severe PAD of the L leg (WALTER 0.62 on the L and TBI 0.38 on the L); repeat seg pressures of 07/15/17 (post L-sided intervention) much improved (R WALTER 1.01, R TBI, 0.81; L WALTER 1.06, L TBI 0.82) Abnormal ECG - Chronic RBBB Carotid dz - 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 u/s of 02/15/16 H/o noncompliance - with multiple medications and medical instructions Chronic, bilateral leg swelling and stasis dermatitis Discussion and Recomendations * Complex management due to multiple comorbidities. FCI prognosis guarded/poor * Treat vent rate with dilt. Change iv dilt to oral dilt * Treat cardiomyopathy with beta-stella. Add NICHOLE-inhib if bp allows * Diuretics as needed * iv fluids today due to low urine output (to be followed by diuretics) * Monitor labs closely Clinical Quality Measures AMI/AHF: ASA po Prior to arrival: DAWNA Loaiza MD FACP FAC CCDS May 05, 2021 15:23
[2021-05-05] MEDS: NS IV 1000 ML 1,000 ML IV SCH (15:49)
[2021-05-05 16:00] VITALS: BP 99/66
[2021-05-05 20:34] VITALS: BP 106/57
[2021-05-06] VITALS (7 sets, daily range): BP systolic 93–107; BP diastolic 51–67
[2021-05-06] MEDS: MEROPENEM 500 MG/SWFI 10 ML IV PUSH IV SCH ×4 (03:36→17:31)
[2021-05-06] MEDS: FUROSEMIDE 40 MG/4 ML INJ (LASIX) IV SCH (06:35)
[2021-05-06] MEDS: NS IV 1000 ML 1,000 ML IV SCH ×2 (06:35→17:26)
[2021-05-06] MEDS: ASPIRIN 81 MG CHEW (CHILDREN'S ASA) PO SCH (08:37)
[2021-05-06] MEDS ORDERED: DILT180C67 PO (09:38)
[2021-05-06] MEDS ORDERED: ZINC56CR2 TP (09:38)
[2021-05-06] MEDS ORDERED: FURO20TA4 PO (09:38)
--- NOTE | 2021-05-06 09:49 | Progress Note - Cardiology ---
Cardiology SOAP Progress Note Subjective: No cp or palp or syncope No shortness of breath Gen weakness and malaise Poor appetite Objective: I&O/Vital Signs 05/06/21 05/06/21 05/06/21 05/06/21 00:22 03:35 07:27 08:36 Temp 36.2 36.6 35.2 Pulse 73 109 76 Resp 18 20 16 B/P (MAP) 105/51 (69) 100/63 (75) 104/67 (79) Pulse Ox 96 95 100 O2 Delivery Nasal Cannula Nasal Cannula Nasal Cannula Nasal Cannula O2 Flow Rate 2.00 2.00 2.00 2.00 05/06/21 00:00 Intake Total 350 ml Output Total 275 ml Balance 75 ml Weight (Pounds): 107 Weight (Ounces): 1.0 Weight (Calculated Kilograms): 48.689782 Constitutional: other (thin, underweight, flat affect, not forthcoming with history) Respiratory: No accessory muscle use; other (Diminishe bs at R base and dullness to percussion) Cardiovascular: irregularly irregular, S1 and S2, systolic murmur (soft NICOLETTE at card base) Gastrointestional: No tender; soft; No guarding, No rebound; audible bowel sounds Extremities: other (mild, bilat leg swelling); No clubbing, No cyanosis Neurologic/Psychiatric: other (seems to be able to move all limbs equally) Skin: No rash on exposed areas, No ulcerations on exposed areas Results/Procedures: Labs Microbiology 05/04/21 Urine Culture - Preliminary, Resulted Proteus Group Gram Negative Adelso 05/04/21 Blood Culture - Preliminary, Resulted No growth Laboratory Tests 05/04/21 10:25 05/05/21 04:55 A/P: Assessment: Sepsis Ac on chronic resp failure due to conditions noted below - Right lower lobe pneumonia/atelectasis and a sizable right pleural effusion first seen on CT abd 04/05/[address] chest/abd of 05/04/21 Pelvic bleed/hematoma - first seen on CT on abd CT of 04/05/21 and again on 05/04/21 [id number] 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 Also not suitable for anticoag due to h/o spontaneous pelvic bleed Ortho - Recent (January 2021) R hip repair after hip fracture from a non-syncopal fall Low body mass and weakness and cachetic appearance - (worsening over 2019 and 2020) PAD - Peripheral angio of 07/10/17: ectatic abdominal aorta, aorto-iliac calci fication, mod dz of renal arteries, diffuse mod disease of both sup fems, 90% ostial and prox stenosis of the L sup fem, single vessel (ant tibial) run off in both legs with 90% ostial stenoses of both ant tibs. Peripheral PCI on 07/10/17: balloon angioplasty of ostial L ant tib that reduced 90% ostial stenosis to less than 30% residual, balloon angioplasty and stenting (Absolute Pro 7 x 80 stent, dilated to 5 mm wilder) to the L prox sup fem that reduced stenosis form 90% to 0% residual - Seg pressures of 07/08/17 showed mild to mod PAD of the R leg (WALTER 0.85 on the R and TBI 0.74 on the R) and moderate to mod severe PAD of the L leg (WALTER 0.62 on the L and TBI 0.38 on the L); repeat seg pressures of 07/15/17 (post L-sided intervention) much improved (R WALTER 1.01, R TBI, 0.81; L WALTER 1.06, L TBI 0.82) Abnormal ECG - Chronic RBBB Carotid dz - 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 u/s of 02/15/16 H/o noncompliance - with multiple medications and medical instructions Chronic, bilateral leg swelling and stasis dermatitis Plan: * Complex management due to multiple comorbidities. intermediate card tender prognosis guarded/poor * Treat vent rate with dilt * Treat cardiomyopathy with beta-stella. Add NICHOLE-inhib if bp allows * Diuretics as needed * Monitor labs closely Clinical Quality Measures Type of Care: Type of Care: Pallative Care, Hospice Care (Home) AMI/AHF: ASA po Prior to arrival: DAWNA Loaiza MD FACP [facility] May 06, 2021 09:49
--- NOTE | 2021-05-06 14:00 | Progress Note - Hospitalist ---
Subjective HPI/CC On Admission Date Seen by Provider: May 06, 2021 Time Seen by Provider: 11:20 Nimisha Hogan is an 89 year old female with PMH CAD, ischemic cardiomyopathy with HFrEF, paroxysmal atrial fibrillation, CKD3a, cachexia, decubitus ulcers, who presented from [facility] with abdominal pain and distension. She had an intraperitoneal hematoma during her most recent hospital stay and was not a surgical candidate due to her multiple comorbidities. She also has shortness of breath. She is not having fevers. She has no cough. She denies pain at the time of my exam. She appears uncomfortable. During her last stay, we had discussed hospice care and she said that she "wanted to go be with [place]". She and her son, Charles, ultimately decided to go back to [facility] with skilled services. Subjective/Events-last exam Pt up in chair eating lunch. No complaints. States she is doing "alright." Discussed plan for her continued care when she gets out of the hospital and she again expresses she just wants to go home with her son Charles with hospice. She then states she has not spoken with him about this. Focused Exam Lactate Level 05/04/21 12:20: Lactic Acid Level 2.13*H 05/04/21 15:21: Lactic Acid Level 2.06*H 05/04/21 17:33: Lactic Acid Level 1.46 Objective Exam Vital Signs Vital Signs Date Time Temp Pulse Resp B/P (MAP) Pulse Ox O2 Delivery O2 Flow Rate FiO2 05/06/21 11:50 35.7 70 12 94/59 (71) 93 Room Air 05/06/21 08:36 2.00 Capillary Refill : NONE General Appearance: No Apparent Distress, Chronically ill, Cachetic Respiratory: Lungs Clear, No Respiratory Distress Cardiovascular: Regular Rate, Rhythm Neurologic/Psychiatric: Alert, Oriented x3 Results/Procedures Lab Patient resulted labs reviewed. Imaging: Reviewed Imaging Report Assessment/Plan Assessment and Plan Assess & Plan/Chief Complaint Severe sepsis due to UTI LENA on CKD3a UA consistent with UTI Urine culture with Proteus and gram negative bella, final ID and susceptibilties pending Continue Meropenem Continue diuretics due to fluid overload Ischemic cardiomyopathy 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 Bilateral pleural effusions CAD AFib with RVR NSTEMI Started on Diltiazem and metoprolol Anticoagulation held due to recent intraperitoneal bleed Most recent EF 10-15%, grade II diastolic dysfunction Continue IV diuresis Cardiology consulted, appreciate assistance Cachexia Debility Decubitus ulcers Poor prognosis Advanced age Goals of care discussion DNR on admission Patient wants to go home on hospice Consult palliative care Will need to have family meeting with son DVT prophylaxis: held due to recent bleeding Lactic acidosis, resolved Critical Care Critically Ill Patient Clinical Quality Measures AMI/AHF: ASA po Prior to arrival: ANDREI Duffy MD May 06, 2021 14:00
[2021-05-06] MEDS ORDERED: MILK OF MAGNESIA 400 MG/5 ML 30 ML UDC PO PRN (15:00)
[2021-05-06] MEDS ORDERED: CALCIUM CARBONATE 500 MG (TUMS) TAB.CHEW PO PRN (15:00)
[2021-05-06] MEDS ORDERED: ACETAMINOPHEN 500 MG TAB (TYLENOL) PO PRN (15:00)
[2021-05-06] MEDS: SPIRONOLACTONE 25 MG (ALDACTONE) TAB PO SCH (17:32)
[2021-05-06] MEDS: MIRTAZAPINE 15 MG (REMERON) TAB PO SCH (20:01)
[2021-05-07 04:15] VITALS: BP 95/60
[2021-05-07] MEDS: MEROPENEM 500 MG/SWFI 10 ML IV PUSH IV SCH ×4 (04:39→16:24)
[2021-05-07 08:40] VITALS: BP 84/54
[2021-05-07] MEDS: ASPIRIN 81 MG CHEW (CHILDREN'S ASA) PO SCH (08:58)
[2021-05-07] MEDS: FUROSEMIDE 20 MG (LASIX) TAB PO SCH (08:58)
[2021-05-07] MEDS: DOCUSATE SODIUM 100 MG (COLACE) CAP PO SCH (08:58)
[2021-05-07] MEDS: VITAMIN D3 25 MCG (1,000 UNITS) TABLET PO SCH (08:58)
[2021-05-07] MEDS ORDERED: NON-FORMULARY MEDICATION 1 EA EA (Cholecalciferol (Vitamin D3) (Vitamin D3) 25 MCG) PO SCH (09:00)
--- NOTE | 2021-05-07 11:19 | Progress Note - Cardiology ---
Cardiology SOAP Progress Note Subjective: Lying in bed Confused this morning Objective: I&O/Vital Signs 05/06/21 05/07/21 05/07/21 05/07/21 23:56 04:15 07:51 08:40 Temp 35.9 36.4 35.7 Pulse 80 76 122 Resp 20 20 22 B/P (MAP) 104/65 (78) 95/60 (72) 84/54 (64) Pulse Ox 95 94 93 O2 Delivery Nasal Cannula Nasal Cannula Nasal Cannula Nasal Cannula O2 Flow Rate 2.00 2.00 2.00 2.00 05/07/21 00:00 Intake Total 440 ml Output Total 200 ml Balance 240 ml Weight (Pounds): 107 Weight (Ounces): 1.0 Weight (Calculated Kilograms): 48.098080 Constitutional: other (thin, underweight, flat affect, not forthcoming with history) Respiratory: No accessory muscle use; other (Diminishe bs at R base and dullness to percussion) Cardiovascular: irregularly irregular, S1 and S2, systolic murmur (soft NICOLETTE at card base) Gastrointestional: No tender; soft; No guarding, No rebound; audible bowel sounds Extremities: other (mild, bilat leg swelling); No clubbing, No cyanosis Neurologic/Psychiatric: other (seems to be able to move all limbs equally) Skin: No rash on exposed areas, No ulcerations on exposed areas Results/Procedures: Labs Microbiology 05/04/21 Urine Culture - Preliminary, Resulted Proteus mirabilis Klebsiella oxytoca 05/04/21 Blood Culture - Preliminary, Resulted No growth A/P: Assessment: Sepsis Ac on chronic resp failure due to conditions noted below - Right lower lobe pneumonia/atelectasis and a sizable right pleural effusion first seen on CT abd 04/05/[address] chest/abd of 05/04/21 Pelvic bleed/hematoma - first seen on CT on abd CT of 04/05/21 and again on 05/04/21 [id number] 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 Also not suitable for anticoag due to h/o spontaneous pelvic bleed Ortho - Recent (January 2021) R hip repair after hip fracture from a non-syncopal fall Low body mass and weakness and cachetic appearance - (worsening over 2019 and 2020) PAD - Peripheral angio of 07/10/17: ectatic abdominal aorta, aorto-iliac calcification, mod dz of renal arteries, diffuse mod disease of both sup fems, 90% ostial and prox stenosis of the L sup fem, single vessel (ant tibial) run off in both legs with 90% ostial stenoses of both ant tibs. Peripheral PCI on 07/10/17: balloon angioplasty of ostial L ant tib that reduced 90% ostial stenosis to less than 30% residual, balloon angioplasty and stenting (Absolute Pro 7 x 80 stent, dilated to 5 mm wilder) to the L prox sup fem that reduced stenosis form 90% to 0% residual - Seg pressures of 07/08/17 showed mild to mod PAD of the R leg (WALTER 0.85 on the R and TBI 0.74 on the R) and moderate to mod severe PAD of the L leg (WALTER 0.62 on the L and TBI 0.38 on the L); repeat seg pressures of 07/15/17 (post L-sided intervention) much improved (R WALTER 1.01, R TBI, 0.81; L WALTER 1.06, L TBI 0.82) Abnormal ECG - Chronic RBBB Carotid dz - 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 u/s of 02/15/16 H/o noncompliance - with multiple medications and medical instructions Chronic, bilateral leg swelling and stasis dermatitis Plan: * Complex management due to multiple comorbidities. FPC prognosis guarded/poor * Treat vent rate with dilt * Treat cardiomyopathy with beta-stella. Add NICHOLE-inhib if bp allows * Diuretics as needed * Monitor labs closely * Palliative care consult has been done - family not agreeable to Hospice care Clinical Quality Measures Type of Care: Type of Care: Pallative Care, Hospice Care (Home) AMI/AHF: ASA po Prior to arrival: ELEN Bowden May 07, 2021 11:19
[2021-05-07 11:46] VITALS: BP 109/73
--- NOTE | 2021-05-07 13:28 | Progress Note - Hospitalist ---
Subjective HPI/CC On Admission Date Seen by Provider: May 07, 2021 Time Seen by Provider: 07:45 Nimisha Hogan is an 89 year old female with PMH CAD, ischemic cardiomyopathy with HFrEF, paroxysmal atrial fibrillation, CKD3a, cachexia, decubitus ulcers, who presented from [facility] with abdominal pain and distension. She had an intraperitoneal hematoma during her most recent hospital stay and was not a surgical candidate due to her multiple comorbidities. She also has shortness of breath. She is not having fevers. She has no cough. She denies pain at the time of my exam. She appears uncomfortable. During her last stay, we had discussed hospice care and she said that she "wanted to go be with [place]". She and her son, Charles, ultimately decided to go back to [facility] with skilled services. Subjective/Events-last exam Pt reports doing ok today. Would like a cold vanilla ensure and a sweet tea with 4 sugars. Otherwise no requests. Son at bedside. We discussed her wish to go home with hospice. She acknowledged in front of Charles that these were his wishes. When asked what he thought about that he said he did not want to go home with hospice but just private caregivers. WHen I asked Nimisha if that was ok she nodded and said indicated she just wanted to go home. Focused Exam Lactate Level 05/04/21 15:21: Lactic Acid Level 2.06*H 05/04/21 17:33: Lactic Acid Level 1.46 Objective Exam Vital Signs Vital Signs Date Time Temp Pulse Resp B/P (MAP) Pulse Ox O2 Delivery O2 Flow Rate FiO2 05/07/21 11:46 35.7 84 18 109/73 (85) 98 Nasal Cannula 2.00 Capillary Refill : NONE General Appearance: No Apparent Distress, Chronically ill, Cachetic Respiratory: Lungs Clear, No Respiratory Distress Neurologic/Psychiatric: Alert, Oriented x3 Results/Procedures Lab Patient resulted labs reviewed. Imaging: Reviewed Imaging Report Assessment/Plan Assessment and Plan Assess & Plan/Chief Complaint Severe sepsis due to UTI LENA on CKD3a UA consistent with UTI Urine culture with Proteus and gram negative bella, final ID and susceptibilties pending Continue Meropenem Ischemic cardiomyopathy 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 Bilateral pleural effusions CAD AFib with RVR NSTEMI Started on Diltiazem and metoprolol Anticoagulation held due to recent intraperitoneal bleed Most recent EF 10-15%, grade II diastolic dysfunction Cardiology consulted, appreciate assistance Continue diuretics due to fluid overload- switched to oral Cachexia Debility Decubitus ulcers Poor prognosis Advanced age Goals of care discussion DNR on admission Patient wants to go home on hospice Consult palliative care Discussed with pt and son as above, planning for private caregivers at home upon discharge, informed them she is ready for DC medically and will need to arrange caregivers for discharge DVT prophylaxis: held due to recent bleeding Lactic acidosis, resolved Critical Care Critically Ill Patient Clinical Quality Measures AMI/AHF: ASA po Prior to arrival: ANDREI Duffy MD May 07, 2021 13:28
[2021-05-07 15:31] VITALS: BP 97/63
--- NOTE | 2021-05-07 17:15 | Progress Note - Cardiology ---
Cardiology SOAP Progress Note Subjective: Not able to provide any meaningful history Objective: I&O/Vital Signs 05/07/21 05/07/21 05/07/21 05/07/21 07:51 08:40 11:46 15:17 Temp 35.7 35.7 Pulse 122 84 Resp 22 18 B/P (MAP) 84/54 (64) 109/73 (85) Pulse Ox 93 98 O2 Delivery Nasal Cannula Nasal Cannula Nasal Cannula Nasal Cannula O2 Flow Rate 2.00 2.00 2.00 2.00 05/07/21 15:31 Temp 36.1 Pulse 78 Resp 18 B/P (MAP) 97/63 (74) Pulse Ox 98 O2 Delivery Nasal Cannula O2 Flow Rate 2.00 05/07/21 00:00 Intake Total 440 ml Output Total 200 ml Balance 240 ml Weight (Pounds): 107 Weight (Ounces): 1.0 Weight (Calculated Kilograms): 48.055357 Constitutional: other (thin, underweight, flat affect, not forthcoming with history) Respiratory: No accessory muscle use; other (Diminishe bs at R base and dullness to percussion) Cardiovascular: irregularly irregular, S1 and S2, systolic murmur (soft NICOLETTE at card base) Gastrointestional: No tender; soft; No guarding, No rebound; audible bowel sounds Extremities: other (mild, bilat leg swelling); No clubbing, No cyanosis Neurologic/Psychiatric: other (seems to be able to move all limbs equally) Skin: No rash on exposed areas, No ulcerations on exposed areas Results/Procedures: Labs Microbiology 05/04/21 Urine Culture - Final, Complete Proteus mirabilis Klebsiella oxytoca 05/04/21 Blood Culture - Preliminary, Resulted No growth A/P: Assessment: Sepsis Ac on chronic resp failure due to conditions noted below - Right lower lobe pneumonia/atelectasis and a sizable right pleural effusion first seen on CT abd 04/05/[address] chest/abd of 05/04/21 Pelvic bleed/hematoma - first seen on CT on abd CT of 04/05/21 and again on 05/04/21 [id number] 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 - Last card cath of 09/13/19: mod CD, patent stent in mid LAD (Promus Premier 3 x 12, placed in 2014), marked impairment of LV systolic function with LVEF 20%, global hypokinesis, mild elev of LVEDP - Echo of 03/24/23: LVEF 10-15%, grade 2 diastolic dysfunction, mild MR, mild AI, R pleural effusion, PSP 40-45 mmHg Chronic, mild troponin elevation due to chronic CHF (type II UT) Persistent A FIB with intermittent RVR (due to noncompliance with meds) - Currently heart rate is controlled - She refuses any oral anticoag (has refused on multiple occasions). Also not suitable for anticoag due to h/o spontaneous pelvic bleed Ortho - Recent (January 2021) R hip repair after hip fracture from a non-syncopal fall Low body mass and weakness and cachetic appearance - (worsening over 2019 and 2020) PAD - Peripheral angio of 07/10/17: ectatic abdominal aorta, aorto-iliac calcification, mod dz of renal arteries, diffuse mod disease of both sup fems, 90% ostial and prox stenosis of the L sup fem, single vessel (ant tibial) run off in both legs with 90% ostial stenoses of both ant tibs. Peripheral PCI on 07/10/17: balloon angioplasty of ostial L ant tib that reduced 90% ostial stenosis to less than 30% residual, balloon angioplasty and stenting (Absolute Pro 7 x 80 stent, dilated to 5 mm wilder) to the L prox sup fem that reduced stenosis form 90% to 0% residual - Seg pressures of 07/08/17 showed mild to mod PAD of the R leg (WALTER 0.85 on the R and TBI 0.74 on the R) and moderate to mod severe PAD of the L leg (WALTER 0.62 on the L and TBI 0.38 on the L); repeat seg pressures of 07/15/17 (post L-sided intervention) much improved (R WALTER 1.01, R TBI, 0.81; L WALTER 1.06, L TBI 0.82) Abnormal ECG - Chronic RBBB Carotid dz - 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 u/s of 02/15/16 H/o noncompliance - with multiple medications and medical instructions Chronic, bilateral leg swelling and stasis dermatitis Plan: * Complex management due to multiple comorbidities. 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 Add NICHOLE-inhib if bp allows * Diuretics as needed * Monitor labs closely * Palliative care consult has been done - family has not agreed to Hospice care Clinical Quality Measures Type of Care: Type of Care: Pallative Care, Hospice Care (Home) AMI/AHF: ASA po Prior to arrival: DAWNA Loaiza MD FACP FACC CCDS May 07, 2021 17:15
[2021-05-07 19:55] VITALS: BP 111/70
[2021-05-07] MEDS: MIRTAZAPINE 15 MG (REMERON) TAB PO SCH (21:20)
[2021-05-08 00:58] VITALS: BP 103/68
[2021-05-08 03:45] VITALS: BP 103/67
[2021-05-08] MEDS: MEROPENEM 500 MG/SWFI 10 ML IV PUSH IV SCH ×4 (03:48→16:43)
[2021-05-08 06:23] LABS: HEMATOCRIT 46 % (35-52); HEMOGLOBIN 13.4 g/dL (11.5-16.0); MEAN CORPUSCULAR HEMOGLOBIN 32 pg (25-34); MEAN CORPUSCULAR HGB CONC 29 g/dL (32-36); MEAN CORPUSCULAR VOLUME 109 fL (80-99); MEAN PLATELET VOLUME 10.6 fL (9.0-12.2); PLATELET COUNT 131 10^3/uL (130-400); WHITE BLOOD COUNT 6.4 10^3/uL (4.3-11.0)
[2021-05-08] MEDS ORDERED: VITAMIN D2 1.25 MG (50,000 UNITS) CAP PO SCH (06:30)
[2021-05-08 06:50] LABS: POTASSIUM 4.6 MMOL/L (3.6-5.0)
[2021-05-08 06:51] LABS: CALCIUM 8.8 MG/DL (8.5-10.1)
[2021-05-08 06:55] LABS: CREATININE SERUM 1.37 MG/DL (0.60-1.30)
[2021-05-08 07:39] VITALS: BP 114/79
[2021-05-08] MEDS: FUROSEMIDE 20 MG (LASIX) TAB PO SCH (09:31)
[2021-05-08] MEDS: VITAMIN D3 25 MCG (1,000 UNITS) TABLET PO SCH (09:31)
[2021-05-08] MEDS: ASPIRIN 81 MG CHEW (CHILDREN'S ASA) PO SCH (09:31)
[2021-05-08] MEDS: DOCUSATE SODIUM 100 MG (COLACE) CAP PO SCH (09:31)
[2021-05-08] MEDS ORDERED: MTP25TSR PO (09:49)
[2021-05-08] MEDS ORDERED: CEPH500T PO (09:49)
--- NOTE | 2021-05-08 09:57 | Discharge Summary ---
Diagnosis/Chief Complaint Date of Admission May 04, 2021 at 13:47 Date of Discharge Discharge Date: May 08, 2021 Admission Diagnosis Severe sepsis due to urinary tract infection Primary Care Elijah Alvarado MD Discharge Diagnosis (1) Severe sepsis Status: Acute (2) UTI (urinary tract infection) Status: Acute (3) Lactic acidosis Status: Resolved (4) Acute kidney injury superimposed on chronic kidney disease Status: Acute (5) Stage 3a chronic kidney disease Status: Chronic (6) Intraperitoneal hematoma Status: Acute (7) Cachexia Status: Acute (8) Severe protein-calorie malnutrition Status: Acute (9) Bilateral pleural effusion Status: Acute (10) Atrial fibrillation with RVR Status: Acute (11) NSTEMI (non-ST elevation myocardial infarction) Status: Acute (12) Poor prognosis Status: Acute (13) Advanced age Status: Chronic (14) Ischemic cardiomyopathy Status: Chronic (15) Acute on chronic heart failure with reduced ejection fraction and diastolic dysfunction Status: Acute (16) Debility Status: Acute (17) Decubitus ulcers Status: Acute Discharge Summary Discharge Physical Exam Allergies: Coded Allergies: amoxicillin (Unverified Allergy, Unknown, 07/14/18) Vitals & I&Os Vital Signs Date Time Temp Pulse Resp B/P (MAP) Pulse Ox O2 Delivery O2 Flow Rate FiO2 05/08/21 07:39 36.4 92 16 114/79 (91) 98 Nasal Cannula 2.00 Hospital Course Labs (last 24 hrs) Laboratory Tests 05/08/21 05:40: White Blood Count 6.4, Red Blood Count 4.23, Hemoglobin 13.4, Hematocrit 46, Me an Corpuscular Volume 109H, Mean Corpuscular Hemoglobin 32, Mean Corpuscular Hemoglobin Concent 29L, Red Cell Distribution Width 19.1H, Platelet Count 131, Mean Platelet Volume 10.6, Sodium Level 144, Potassium Level 4.6, Chloride Level 102, Carbon Dioxide Level 30, Anion Gap 12, Blood Urea Nitrogen 68H, Creatinine 1.37H, Estimat Glomerular Filtration Rate 36, BUN/Creatinine Ratio 50, Glucose Level 88, Calcium Level 8.8 Microbiology 05/04/21 Urine Culture - Final, Complete Proteus mirabilis Klebsiella oxytoca 05/04/21 Blood Culture - Preliminary, Resulted No growth Patient resulted labs reviewed. Pending Labs Laboratory Tests 05/08/21 05:40: White Blood Count 6.4, Red Blood Count 4.23, Hemoglobin 13.4, Hematocrit 46, Mean Corpuscular Volume 109, Mean Corpuscular Hemoglobin 32, Mean Corpuscular Hemoglobin Concent 29, Red Cell Distribution Width 19.1, Platelet Count 131, Mean Platelet Volume 10.6, Sodium Level 144, Potassium Level 4.6, Chloride Level 102, Carbon Dioxide Level 30, Anion Gap 12, Blood Urea Nitrogen 68, Creatinine 1.37, Estimat Glomerular Filtration Rate 36, BUN/Creatinine Ratio 50, Glucose Level 88, Calcium Level 8.8 Imaging: Reviewed Imaging Report Discharge Home Medications: Active Scripts Active Cephalexin 500 Mg Tablet 500 Mg PO BID Metoprolol Succinate 25 Mg Tab.er.24h 25 Mg PO DAILY Reported Desitin (Zinc Oxide) 57 Gm Cream..g. 1 Applic TP DAILY Furosemide 20 Mg Tablet 20 Mg PO DAILY Cardizem Cd (Diltiazem HCl) 180 Mg Cap.er.24h 180 Mg PO DAILY Milk of Magnesia (Magnesium Hydroxide) 2,400 Mg/10 Ml Oral.susp 30 Ml PO DAILY PRN Multivitamins with Minerals (Multivitamin with Minerals) 1 Each Tablet 1 Each PO DAILY Mirtazapine 15 Mg Tablet 15 Mg PO HS Spironolactone 25 Mg Tablet 25 Mg PO Q48H Aspirin 81 Mg Tab.chew 81 Mg PO BID Calcium Carbonate 300 Mg Tab.chew 750 Mg PO Q12H PRN Tylenol Extra Strength (Acetaminophen) 500 Mg Tablet 1,000 Mg PO Q6H PRN Vitamin D3 (Cholecalciferol (Vitamin D3)) 25 Mcg Capsule 25 Mcg PO DAILY Colace (Docusate Sodium) 100 Mg Capsule 100 Mg PO DAILY Vitamin D3 (Cholecalciferol (Vitamin D3)) 1,250 Mcg Capsule 1,250 Mcg PO WED Instructions to patient/family Please see electronic discharge instructions given to patient. Clinical Quality Measures AMI/AHF: ASA po Prior to arrival: ANDREI Duffy MD May 08, 2021 09:57
[2021-05-08 11:32] VITALS: BP 98/66
[2021-05-08] MEDS: SPIRONOLACTONE 25 MG (ALDACTONE) TAB PO SCH (13:55)
--- NOTE | 2021-05-08 15:42 | Progress Note - Cardiology ---
Cardiology SOAP Progress Note Subjective: Refusing Cardizem CD this am (capsule too large; doesn't wish to take capsules) Gen malaise and weakness Poor appetite No shortness of breath at rest No cp or palp or syncope or swelling No n/v/d Objective: I&O/Vital Signs 05/08/21 05/08/21 05/08/21 05/08/21 03:45 07:39 08:00 11:32 Temp 36.2 36.4 36.6 Pulse 86 92 65 Resp 20 16 16 B/P (MAP) 103/67 (79) 114/79 (91) 98/66 (77) Pulse Ox 97 98 98 O2 Delivery Nasal Cannula Nasal Cannula Nasal Cannula Nasal Cannula O2 Flow Rate 2.00 2.00 2.00 2.00 05/08/21 00:00 Intake Total 710 ml Output Total 275 ml Balance 435 ml Weight (Pounds): 107 Weight (Ounces): 1.0 Weight (Calculated Kilograms): 48.551330 Constitutional: other (thin, underweight, flat affect, not forthcoming with history) Respiratory: No accessory muscle use; other (Diminishe bs at R base and dullness to percussion) Cardiovascular: irregularly irregular, S1 and S2, systolic murmur (soft NICOLETTE at card base) Gastrointestional: No tender; soft; No guarding, No rebound; audible bowel sounds Extremities: other (mild, bilat leg swelling); No clubbing, No cyanosis Neurologic/Psychiatric: other (seems to be able to move all limbs equally) Skin: No rash on exposed areas, No ulcerations on exposed areas Results/Procedures: Labs Laboratory Tests 05/08/21 05:40: White Blood Count 6.4, Red Blood Count 4.23, Hemoglobin 13.4, Hematocrit 46, Mean Corpuscular Volume 109H, Mean Corpuscular Hemoglobin 32, Mean Corpuscular Hemoglobin Concent 29L, Red Cell Distribution Width 19.1H, Platelet Count 131, Mean Platelet Volume 10.6, Sodium Level 144, Potassium Level 4.6, Chloride Level 102, Carbon Dioxide Level 30, Anion Gap 12, Blood Urea Nitrogen 68H, Creatinine 1.37H, Estimat Glomerular Filtration Rate 36, BUN/Creatinine Ratio 50, Glucose Level 88, Calcium Level 8.8 Microbiology 05/04/21 Urine Culture - Final, Complete Proteus mirabilis Klebsiella oxytoca 05/04/21 Blood Culture - Preliminary, Resulted No growth Laboratory Tests 05/08/21 05:40 A/P: Assessment: Sepsis Ac on chronic resp failure due to conditions noted below - Right lower lobe pneumonia/atelectasis and a sizable right pleural effusion first seen on CT abd 04/05/[address] chest/abd of 05/04/21 Pelvic bleed/hematoma - first seen on CT on abd CT of 04/05/21 and again on 05/04/21 [id number] 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 - Last card cath of 09/13/19: mod CD, patent stent in mid LAD (Promus Premier 3 x 12, placed in 2014), marked impairment of LV systolic function with LVEF 20%, global hypokinesis, mild elev of LVEDP - Echo of 03/24/23: LVEF 10-15%, grade 2 diastolic dysfunction, mild MR, mild AI, R pleural effusion, PSP 40-45 mmHg Chronic, mild troponin elevation due to chronic CHF (type II MT) Persistent A FIB with intermittent RVR (due to noncompliance with meds) - Currently heart rate is controlled - She refuses any oral anticoag (has refused on multiple occasions). Also not suitable for anticoag due to h/o spontaneous pelvic bleed Ortho - Recent (January 2021) R hip repair after hip fracture from a non-syncopal fall Low body mass and weakness and cachetic appearance - (worsening over 2019 and 2020) PAD - Peripheral angio of 07/10/17: ectatic abdominal aorta, aorto-iliac calcification, mod dz of renal arteries, diffuse mod disease of both sup fems, 90% ostial and prox stenosis of the L sup fem, single vessel (ant tibial) run off in both legs with 90% ostial stenoses of both ant tibs. Peripheral PCI on 07/10/17: balloon angioplasty of ostial L ant tib that reduced 90% ostial stenosis to less than 30% residual, balloon angioplasty and stenting (Absolute Pro 7 x 80 stent, dilated to 5 mm wilder) to the L prox sup fem that reduced stenosis form 90% to 0% residual - Seg pressures of 07/08/17 showed mild to mod PAD of the R leg (WALTER 0.85 on the R and TBI 0.74 on the R) and moderate to mod severe PAD of the L leg (WALTER 0.62 on the L and TBI 0.38 on the L); repeat seg pressures of 07/15/17 (post L-sided intervention) much improved (R WALTER 1.01, R TBI, 0.81; L WALTER 1.06, L TBI 0.82) Abnormal ECG - Chronic RBBB Carotid dz - 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 u/s of 02/15/16 H/o noncompliance - with multiple medications and medical instructions Chronic, bilateral leg swelling and stasis dermatitis Plan: * Complex management due to multiple comorbidities. assisted prognosis guarded/poor * Treat vent rate with dilt. Refused Cardizem CD. Change to regular cardizem tid (has worked in the past except when she goes home and stops taking meds) * Diuretics as needed * Monitor labs closely * Palliative care consult has been done - family has not agreed to Hospice care Clinical Quality Measures Type of Care: Type of Care: Pallative Care, Hospice Care (Home) AMI/AHF: ASA po Prior to arrival: DWANA Loaiza MD FACP FACC CCDS May 08, 2021 15:42
[2021-05-08 16:16] VITALS: BP 102/70
[2021-05-08 17:45] VITALS: BP 102/70
== END 2021-05-08 17:45 | disposition home health service (06) | DRG 871 ==
LOC: EDUNIT# 10:17 → ER 10:19 → ICU 13:47 → 4TH 05-05 14:18
PROVIDERS: ADMIT Internal Medicine; ATTEND Internal Medicine
DX: A41.59 Other Gram-negative sepsis (principal); K66.1 Hemoperitoneum; I50.23 Acute on chronic systolic (congestive) heart failure; I21.A1 Myocardial infarction type 2; E43 Unspecified severe protein-calorie malnutrition; J96.20 Acute and chronic respiratory failure, unspecified whether with hypoxia or hypercapnia; N39.0 Urinary tract infection, site not specified; J90 Pleural effusion, not elsewhere classified; I13.0 Hypertensive heart and chronic kidney disease with heart failure and stage 1 through stage 4 chronic kidney disease, or unspecified chronic kidney disease; R64 Cachexia; N17.9 Acute kidney failure, unspecified; E87.2 Acidosis; I48.19 Other persistent atrial fibrillation; Z68.1 Body mass index [BMI] 19.9 or less, adult; Z66 Do not resuscitate; N18.31 Chronic kidney disease, stage 3a; K52.9 Noninfective gastroenteritis and colitis, unspecified; I25.10 Atherosclerotic heart disease of native coronary artery without angina pectoris; I73.9 Peripheral vascular disease, unspecified; K59.09 Other constipation; L89.151 Pressure ulcer of sacral region, stage 1; I25.5 Ischemic cardiomyopathy; I48.0 Paroxysmal atrial fibrillation; N85.9 Noninflammatory disorder of uterus, unspecified; I45.10 Unspecified right bundle-branch block; I77.9 Disorder of arteries and arterioles, unspecified; I87.2 Venous insufficiency (chronic) (peripheral); B96.1 Klebsiella pneumoniae [K. pneumoniae] as the cause of diseases classified elsewhere; B96.4 Proteus (mirabilis) (morganii) as the cause of diseases classified elsewhere; I25.2 Old myocardial infarction; Z79.899 Other long term (current) drug therapy; Z91.19 Patient's noncompliance with other medical treatment and regimen; Z95.5 Presence of coronary angioplasty implant and graft; Z79.82 Long term (current) use of aspirin; Z85.828 Personal history of other malignant neoplasm of skin; Z88.1 Allergy status to other antibiotic agents
CPT/HCPCS: 36415; 51702; 70450; 71045; 71250; 74176; 80048; 80053; 80061; 81000; 83605; 83735; 83874; 83880; 84439; 84443; 84484; 85025; 85027; 85610; 85730; 86141; 87040; 87077; 87088; 87186; 93005; 93041; 94761

== ENCOUNTER 2021-05-14 16:43 | Inpatient (IN) | payer MEDICARE, OTHER ==
[~2021-05-14] VITALS: Ht 155 cm; Wt 55.4 kg
[~2021-05-14 16:43] MED LIST changes: +DILT180C67 PO; +ZINC56CR2 TP
[2021-05-14] MEDS: NS IV 500 ML 500 ML IV SCH ×2 (17:00→18:24)
[2021-05-14] MEDS ORDERED: ATROPINE INJECTION 1 MG/1 ML SDV IJ STA (17:04)
--- NOTE | 2021-05-14 17:04 | ED General ---
General Chief Complaint: Respiratory Problems Stated Complaint: HYPOXIA Source of Information: Patient Exam Limitations: No Limitations History of Present Illness Date Seen by Provider: May 14, 2021 Time Seen by Provider: 16:50 Initial Comments Patient is an 89-year-old female with multiple comorbidities who presents to the emergency department by ambulance from her local physician's office with a complaint of hypoxia, bradycardia, hypotension. Patient was recently in the hospital with "pneumonia" per her son was discharged to a snf and he subsequently brought her home. Reportedly she complained of feeling palpitations yesterday evening, her son Nicko called the loose hand packer last night and was told that if she was indeed having a rapid heartbeat that he could give her a second dose of her Cardizem. So he did, this was a 180 mg tablet. She presented to her doctor's office today for routine visit and was found to be poorly responsive. EMS was unable to obtain IV access prior to arrival. She was on a nonrebreather satting in the upper 80s. Heart rate was noted to be 27 on arrival with blood pressures in the 80s systolic. She is only able to ask for a little water and at one point she asked me "where am I". She is able to tell me that she does not have any pain. She appears to be having almost agonal breathing at times. At one point she did have some long pauses in respiration. I immediately discussed the case with Dr. Myers after giving her half a milligram of atropine which brought her heart rate up into the low 40s. She started getting a fluid bolus and her pressure started to come up. Dr. Myers indicated that dopamine would be a good pressor to start her on. I started her at five mics per kilo per minute. I started initiating discussions with the son regarding resuscitation status and medical therapies early on. Allergies and Home Medications Allergies Coded Allergies: amoxicillin (Unverified Allergy, Unknown, 07/14/18) Patient Home Medication List Home Medication List Reviewed: Yes Aspirin (Aspirin EC) 81 Mg Tablet., 81 MG PO BID, (Reported) Entered as Reported by: ALEJANDRINA ALMANZA on 05/15/21 1042 Last Action: Reviewed Cholecalciferol (Vitamin D3) (Vitamin D3) 25 Mcg Capsule, 25 MCG PO DAILY, (Reported) Entered as Reported by: ALEJANDRINA ALMANZA on 03/20/21 1028 Last Action: Reviewed Cholecalciferol (Vitamin D3) (D3-50) 1,250 Mcg Capsule, 1,250 MCG PO WED, (Reported) Entered as Reported by: ALEJANDRINA ALMANZA on 05/15/21 1042 Last Action: Reviewed Diltiazem HCl (Diltiazem 24Hr ER) 180 Mg Cap.er.24h, 180 MG PO DAILY, (Reported) Entered as Reported by: ALEJANDRINA ALMANZA on 05/15/21 1042 Last Action: Reviewed Furosemide (Furosemide) 20 Mg Tablet, 20 MG PO DAILY, (Reported) Entered as Reported by: JAC ROOT on 05/06/21 0938 Last Action: Reviewed Metoprolol Succinate (Metoprolol Succinate) 25 Mg Tab.er.24h, 25 MG PO DAILY, (Reported) Entered as Reported by: ALEJANDRINA ALMANZA on 05/15/21 1042 Last Action: Reviewed Mirtazapine (Mirtazapine) 15 Mg Tablet, 15 MG PO HS, (Reported) Entered as Reported by: ALEJANDRINA ALMANZA on 03/25/21 1329 Last Action: Reviewed Spironolactone (Spironolactone) 25 Mg Tablet, 25 MG PO Q48H, (Reported) Entered as Reported by: ALEJANDRINA ALMANZA on 03/25/21 1329 Last Action: Reviewed Discontinued Medications Acetaminophen (Tylenol Extra Strength) 500 Mg Tablet, 1,000 MG PO Q6H PRN for PAIN-MILD (1-4), (Reported) Discontinued Reason: No Longer Taking Entered as Reported by: ALEJANDRINA ALMANZA on 03/20/21 1028 Last Action: Discontinued Calcium Carbonate (Calcium Carbonate) 300 Mg Tab.chew, 750 MG PO Q12H PRN for ST OMACH UPSET, (Reported) Discontinued Reason: No Longer Taking Entered as Reported by: ALEJANDRINA ALMANZA on 03/20/21 1028 Last Action: Discontinued Cephalexin (Cephalexin) 500 Mg Tablet, 500 MG PO BID Discontinued Reason: No Longer Taking Prescribed by: ANDREI MACIAS on 05/08/21 0949 Last Action: Discontinued Cholecalciferol (Vitamin D3) (Vitamin D3) 1,250 Mcg Capsule, 1,250 MCG PO WED, (Reported) Discontinued Reason: No Longer Taking Entered as Reported by: ALEJANDRINA ALMANZA on 03/20/21 1028 Last Action: Discontinued Diltiazem HCl (Cardizem Cd) 180 Mg Cap.er.24h, 180 MG PO DAILY, (Reported) Discontinued Reason: No Longer Taking Entered as Reported by: JAC ROOT on 05/06/2138 Last Action: Discontinued Docusate Sodium (Colace) 100 Mg Capsule, 100 MG PO DAILY, (Reported) Discontinued Reason: No Longer Taking Entered as Reported by: ALEJANDRINA ALMANZA on 03/20/21 1028 Last Action: Discontinued Magnesium Hydroxide (Milk of Magnesia) 2,400 Mg/10 Ml Oral.susp, 30 ML PO DAILY PRN for CONSTIPATION-7TH LINE, (Reported) Discontinued Reason: No Longer Taking Entered as Reported by: ALEJANDRINA ALMANZA on 03/25/21 1332 Last Action: Discontinued Metoprolol Succinate (Metoprolol Succinate) 25 Mg Tab.er.24h, 25 MG PO DAILY Discontinued Reason: No Longer Taking Prescribed by: ANDREI MACIAS on 05/08/21 0949 Last Action: Discontinued Multivitamin with Minerals (Multivitamins with Minerals) 1 Each Tablet, 1 EACH PO DAILY, (Reported) Discontinued Reason: No Longer Taking Entered as Reported by: ALEJANDRINA ALMANZA on 03/25/21 1330 Last Action: Discontinued Zinc Oxide (Desitin) 57 Gm Cream..g., 1 APPLIC TP DAILY, (Reported) Discontinued Reason: No Longer Taking Entered as Reported by: JAC ROOT on 05/06/2138 Last Action: Discontinued Review of Systems Review of Systems Constitutional: see HPI Unobtainable from the patient secondary to critical condition Past Guvppjr-Igofhe-Wrpfrh Hx Immunizations Up To Date Tetanus Booster (TDap): Unknown Seasonal Allergies Seasonal Allergies: No Past Medical History Surgery/Hospitalization HX: RIGHT HIP FRACTURE REPAIR 03/[address] [place] [address] MACIEL CARDIAC CATH 09/13/[address] MYERS: CONCLUSIONS: 1. Coronary artery disease, moderate. 2. Patent stent in the mid left anterior descending artery that is known to be Promus Premier 3 x 12 mm stent that was placed in 2014. 3. Marked impairment of global left ventricular systolic function with an ejection fraction of 20%. 4. Global hypokinesis of the left ventricle, more marked in the anterolateral and apical giron. 5. Mild elevation of the left ventricular end-diastolic pressure. DISCUSSION AND RECOMMENDATIONS: Based on the results of the study, we are continuing a conservative approach. Her main problem has been noncompliance with medical therapy. We have again advised her to be compliant and to follow up closely on an outpatient basis. Surgeries: Yes (Cardiac and Peripheral in left leg Stent placement) Coronary Stent, 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, Orthopedic, Vascular Surgery Respiratory: Yes (POST OP PNEUMONIA / RESP FAILURE 03/19/21) Pneumonia Cardiac: Yes Atrial Fibrillation Neurological: No [employer] History: 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 Genitourinary: No Gastrointestinal: Yes Chronic Constipation Musculoskeletal: No Endocrine: No HEENT: Yes Glaucoma Cancer: Yes (2010) Skin Did You Recieve Any Treatments: Yes What Type of Treatment Did You: Surgical Intervention Psychosocial: No Integumentary: Yes Recent Skin Changes Blood Disorders: No Adverse Reaction/Blood Tranf: No Family Medical History Hypertension 19 FATHER Other Conditions/Hx Physical Exam-Suspected Sepsis Physical Exam Vital Signs Vital Signs - First Documented 05/14/21 05/14/21 05/14/21 05/14/21 16:48 17:01 20:00 22:04 Temp 36.28581 Pulse 31 Resp 8 B/P (MAP) 91/55 (67) Pulse Ox 97 O2 Delivery Non Rebreather O2 Flow Rate 40.00 100.00 FiO2 100 Capillary Refill : Height, Weight, BMI Height: 5'5.00" Weight: 107lbs. 1.0oz. 48.123478nt; 16.00 BMI Method:Stated General Appearance: Chronically ill, Cachetic Eyes: Bilateral Eye Normal Inspection, Bilateral Eye PERRL HEENT: PERRL/EOMI, Other (very dry oral mucosa) Neck: Normal Inspection Respiratory: Other (diminished throughout; poor effort, short shallow breaths) Cardiovascular: Bradycardia (profound) Gastrointestinal: Soft, Distended (slightly) Extremity: Normal Inspection, No Pedal Edema Neurologic/Psychiatric: Alert, Depressed Affect, Disoriented Skin: warm/dry, pallor Focused Exam Lactate Level 05/14/21 15:28: Lactic Acid Level 1.14 Progress/Results/Core Measures Suspected Sepsis SIRS Temperature: Pulse: Respiratory Rate: Laboratory Tests 05/14/21 17:00: White Blood Count 9.6 05/15/21 15:28: White Blood Count 8.6 05/16/21 04:40: White Blood Count 8.2 Blood Pressure / Mean: 05/14/21 15:28: Lactic Acid Level 1.14 Laboratory Tests 05/14/21 17:00: Platelet Count 144, Total Bilirubin 1.3H 05/15/21 04:15: Creatinine 1.81H 05/15/21 15:28: Platelet Count 141, Creatinine 1.71H 05/16/21 04:40: Platelet Count 130, Creatinine 1.62H Results/Orders Lab Results Laboratory Tests Test 05/15/21 04:15 05/15/21 14:43 05/15/21 15:15 05/15/21 15:28 Range/Units Sodium Level 144 146 H 135-145 MMOL/L Potassium Level 6.0 H 5.0 3.6-5.0 MMOL/L Chloride Level 101 103 98-107 MMOL/L Carbon Dioxide Level 25 30 21-32 MMOL/L Anion Gap 18 H 13 5-14 MMOL/L Blood Urea Nitrogen 82 H 77 H 7-18 MG/DL Creatinine 1.81 H 1.71 H 0.60-1.30 MG/DL Estimat Glomerular Filtration Rate 26 28 BUN/Creatinine Ratio 45 45 Glucose Level 69 L 150 H 70-105 MG/DL Calcium Level 8.5 8.9 8.5-10.1 MG/DL Phosphorus Level 5.5 H 2.3-4.7 MG/DL Magnesium Level 2.6 H 1.6-2.4 MG/DL Glucometer 256 H 70-110 MG/DL Urine Color YELLOW Urine Clarity CLOUDY Urine pH 5.5 5-9 Urine Specific [place] 1.020 1.016-1.022 Urine Protein 1+ H NEGATIVE Urine Glucose (UA) NEGATIVE NEGATIVE Urine Ketones NEGATIVE NEGATIVE Urine Nitrite NEGATIVE NEGATIVE Urine Bilirubin NEGATIVE NEGATIVE Urine Urobilinogen 1.0 < = 1.0 MG/DL Urine Leukocyte Esterase 3+ H NEGATIVE Urine RBC (Auto) 3+ H NEGATIVE Urine RBC 10-25 H /HPF Urine WBC TNTC H /HPF Urine Crystals NONE /LPF Urine Bacteria FEW H /HPF Urine Casts NONE /LPF Urine Mucus NEGATIVE /LPF Urine Yeast FEW H /HPF Urine Culture Indicated YES White Blood Count 8.6 4.3-11.0 10^3/uL Red Blood Count 3.90 3.80-5.11 10^6/uL Hemoglobin 12.6 11.5-16.0 g/dL Hematocrit 42 35-52 % Mean Corpuscular Volume 107 H 80-99 fL Mean Corpuscular Hemoglobin 32 25-34 pg Mean Corpuscular Hemoglobin Concent 30 L 32-36 g/dL Red Cell Distribution Width 19.5 H 10.0-14.5 % Platelet Count 141 130-400 10^3/uL Mean Platelet Volume 10.6 9.0-12.2 fL Immature Granulocyte % (Auto) 1 % Neutrophils (%) (Auto) 79 H 42-75 % Lymphocytes (%) (Auto) 9 L 12-44 % Monocytes (%) (Auto) 10 0-12 % Eosinophils (%) (Auto) 1 0-10 % Basophils (%) (Auto) 0 0-10 % Neutrophils # (Auto) 6.9 1.8-7.8 10^3/uL Lymphocytes # (Auto) 0.8 L 1.0-4.0 10^3/uL Monocytes # (Auto) 0.8 0.0-1.0 10^3/uL Eosinophils # (Auto) 0.1 0.0-0.3 10^3/uL Basophils # (Auto) 0.0 0.0-0.1 10^3/uL Immature Granulocyte # (Auto) 0.1 0.0-0.1 10^3/uL Blood Gas Puncture Site PICC LINE Blood Gas Patient Temperature 36.6 Arterial Blood pH 7.39 7.37-7.43 Arterial Blood Partial Pressure CO2 57 H 35-45 MMHG Arterial Blood Partial Pressure O2 53 L 79-93 MMHG Arterial Blood HCO3 33 H 23-27 MMOL/L Arterial Blood Total CO2 35.2 H 21.0-31.0 MMOL/L Arterial Blood Oxygen Saturation 83 L 94-100 % Arterial Blood Base Excess 8.2 H -2.5-2.5 MMOL/L Jose Alfredo Test UNKNOWN Blood Gas Ventilator Setting NO Blood Gas Inspired Oxygen 47% Test 05/16/21 04:40 Range/Units White Blood Count 8.2 4.3-11.0 10^3/uL Red Blood Count 3.68 L 3.80-5.11 10^6/uL Hemoglobin 11.9 11.5-16.0 g/dL Hematocrit 40 35-52 % Mean Corpuscular Volume 108 H 80-99 fL Mean Corpuscular Hemoglobin 32 25-34 pg Mean Corpuscular Hemoglobin Concent 30 L 32-36 g/dL Red Cell Distribution Width 19.6 H 10.0-14.5 % Platelet Count 130 130-400 10^3/uL Mean Platelet Volume 10.5 9.0-12.2 fL Immature Granulocyte % (Auto) 1 % Neutrophils (%) (Auto) 74 42-75 % Lymphocytes (%) (Auto) 15 12-44 % Monocytes (%) (Auto) 9 0-12 % Eosinophils (%) (Auto) 2 0-10 % Basophils (%) (Auto) 0 0-10 % Neutrophils # (Auto) 6.0 1.8-7.8 10^3/uL Lymphocytes # (Auto) 1.2 1.0-4.0 10^3/uL Monocytes # (Auto) 0.7 0.0-1.0 10^3/uL Eosinophils # (Auto) 0.2 0.0-0.3 10^3/uL Basophils # (Auto) 0.0 0.0-0.1 10^3/uL Immature Granulocyte # (Auto) 0.1 0.0-0.1 10^3/uL Sodium Level 144 135-145 MMOL/L Potassium Level 4.3 3.6-5.0 MMOL/L Chloride Level 104 98-107 MMOL/L Carbon Dioxide Level 29 21-32 MMOL/L Anion Gap 11 5-14 MMOL/L Blood Urea Nitrogen 72 H 7-18 MG/DL Creatinine 1.62 H 0.60-1.30 MG/DL Estimat Glomerular Filtration Rate 30 BUN/Creatinine Ratio 44 Glucose Level 156 H 70-105 MG/DL Calcium Level 8.1 L 8.5-10.1 MG/DL Phosphorus Level 3.7 2.3-4.7 MG/DL Magnesium Level 2.3 1.6-2.4 MG/DL Micro Results Microbiology 05/15/21 Urine Culture - Final, Complete YEAST 05/14/21 MRSA Screen - Final, Complete MRSA not isolated My Orders Orders - PERCY HERRERA MD Hospice Consult (05/14/21 18:41) Code/Resuscitation (05/14/21 18:41) Atropine Inj 1 Mg Syringe (Atropine Inj (05/15/21 11:02) Dopamine Drip (Dopamine Drip) (05/15/21 11:02) Medications Given in ED Vital Signs/I&O 05/16/21 05/16/21 05/16/21 05/16/21 06:51 07:00 07:23 07:39 Temp 36.3 Pulse 74 Resp 23 B/P (MAP) 85/53 (64) Pulse Ox 92 96 93 O2 Delivery Vapotherm Vapotherm Vapotherm O2 Flow Rate 15.00 15.00 15.00 35.00 FiO2 35 35 05/16/21 05/16/21 05/16/21 05/16/21 08:00 09:00 09:39 10:00 Pulse 77 81 76 Resp 29 32 B/P (MAP) 97/53 (68) 92/50 (64) 99/58 (72) Pulse Ox 97 93 93 O2 Delivery Vapotherm Vapotherm Nasal Cannula Nasal Cannula O2 Flow Rate 15.00 15.00 2.00 2.00 35.00 35.00 05/16/21 05/16/21 05/16/21 05/16/21 10:27 11:00 11:35 11:51 Temp 36.2 Pulse 77 Resp 31 B/P (MAP) 97/83 (88) Pulse Ox 92 97 O2 Delivery Nasal Cannula Nasal Cannula Nasal Cannula O2 Flow Rate 2.00 2.00 2.00 05/16/21 05/16/21 05/16/21 05/16/21 12:00 13:01 13:19 14:00 Pulse 68 86 70 71 Resp 19 13 27 B/P (MAP) 92/56 (68) 95/57 (70) 107/60 (76) Pulse Ox 100 95 95 O2 Delivery Nasal Cannula Nasal Cannula Nasal Cannula O2 Flow Rate 2.00 2.00 2.00 05/16/21 05/16/21 05/16/21 05/16/21 15:00 16:00 16:00 17:00 Pulse 78 87 77 Resp 38 30 44 B/P (MAP) 89/69 (76) 103/86 (92) 100/59 (73) Pulse Ox 95 97 95 O2 Delivery Nasal Cannula Nasal Cannula Nasal Cannula Nasal Cannula O2 Flow Rate 2.00 2.00 2.00 2.00 05/16/21 18:00 Pulse 83 Resp 15 B/P (MAP) 105/59 (74) Pulse Ox 94 O2 Delivery Nasal Cannula O2 Flow Rate 2.00 Capillary Refill : Progress Note : Time: 18:48 Progress Note Multiple discussions with the patient's son Nicko regarding resuscitative status and extraordinary measures to prolong Geo's life. He did agree to a "DNR" status. He however would like to continue with medical therapy. Dr. Bryant even had a discussion with him with regards to Geo having told her loose hand packer, Dr. Myers as well as Dr. Bryant himself that she did not wish to have extraordinary measures done to prolong her life. He is not willing to do comfort care measures at this time. He is waiting for one of his brothers to show up here to the hospital. She has responded to a dopamine drip at five mics per kilo per minute with a heart rate of 60, a blood pressure of 127 systolic. She is on 40 L/min of Vapotherm currently with oxygen saturations at 90 to 91%. I have explained to her son that I feel like this is the natural progression of her underlying disease processes and that at this time her body is just not able to continue on. I have advised him that I feel like her is imminent. I told him multiple times that she is "actively dying". He states that he understands but wishes to continue medication therapy at this time. Patient will be admitted to the ICU on the dopamine drip with some fluids running. I nasreen jameson treated her hyperkalemia, will recheck a BMP in the morning. I have placed a hospice consult in the order set so that they can further talk to him in the morning. At the time of admission patient is gravely ill. ECG Initial ECG Impression Date: May 14, 2021 Initial ECG Impression Time: 16:54 Initial ECG Rate: 26 Initial ECG Rhythm: A Fib/Flutter Initial ECG Intervals ND 115 QRS 152 QTc 402 EKG : EKG Time: 17:12 Rate: 41 Rhythm: A Fib/Flutter ECG Comparisson: Changed ECG Impression: Atrial Fibrillation Diagnostic Imaging Diagonstic Imaging: Xray Plain Films/CT/US/NM/MRI: chest Comments [facility] [place], [place] NAME: GEO VALLECILLO [facility] REC#: [id number] PT STATUS: REG ER : 1930 PHYSICIAN: PERCY HERRERA MD ADMIT DATE: 05/14/21/ER Signed Date of Exam:05/14/21 CHEST 1 VIEW, AP/PA ONLY INDICATION: Weakness and heart block. TIME OF EXAM: 5:25 PM Correlation is made with prior chest from 05/04/2021. FINDINGS: Heart is enlarged, but stable. There is moderate to large right and moderate left pleural effusion. There is parenchymal consolidation in the left base. Upper lung aldridge are clear. No pneumothorax is seen. IMPRESSION: Bilateral effusions, right greater as well as bibasilar consolidation. Dictated by: Dictated on workstation # [id number] Dict: 05/14/21 1736 Trans: 05/14/211811 [id number] Interpreted by: ZACKARY RUEDA MD Electronically signed by: ZACKARY RUEDA MD 05/14/211811 Critical Care Note Critical Care Start Time: 16:50 Stop Time: 18:53 Total Time (minutes) 1 hour 15 minutes of critical care time in the evaluation and management of this patient with cardiogenic shock. Time includes resuscitative measures with oxygen, IV fluids, medications for heart block/profound bradycardia. Time includes review of the medical record, multiple discussions with the hospitalist, multiple discussions with the family, discussion with the loose hand packer, initiation of pressor therapy. Departure Communication (Admissions) Time/Spoke to Admitting Phy: 17:[address] Bryant Time/Spoke to Consulting Phy: 17:[address] Myers Impression Primary Impression: Cardiogenic shock Additional Impressions: Hypoxia Hyperkalemia Atrial fibrillation Qualified Codes: I48.11 - Longstanding persistent atrial fibrillation Acute renal failure Qualified Codes: N17.9 - Acute kidney failure, unspecified Disposition: ADMITTED INPATIENT Condition: Critical Admissions Decision to Admit Reason: Admit from ER (General) Decision to Admit/Date: May 14, 2021 Time/Decision to Admit Time: 18:47 Departure-Patient Inst. Referrals: GLORIA LEE MD (PCP/Family) Primary Care Physician PERCY HERRERA MD May 14, 2021 17:04
[2021-05-14 17:08] LABS: BASOPHILS % (AUTO) 0 % (0-10); EOSINOPHILS # (AUTO) 0.1 10^3/uL (0.0-0.3); EOSINOPHILS % (AUTO) 1 % (0-10); HEMATOCRIT 48 % (35-52); HEMOGLOBIN 13.8 g/dL (11.5-16.0); LYMPHOCYTES # (AUTO) 1.9 10^3/uL (1.0-4.0); LYMPHOCYTES % (AUTO) 20 % (12-44); MEAN CORPUSCULAR HEMOGLOBIN 32 pg (25-34); MEAN CORPUSCULAR HGB CONC 29 g/dL (32-36); MEAN CORPUSCULAR VOLUME 111 fL (80-99); MEAN PLATELET VOLUME 10.7 fL (9.0-12.2); MONOCYTES # (AUTO) 1.1 10^3/uL (0.0-1.0); MONOCYTES % (AUTO) 11 % (0-12); NEUTROPHILS # (AUTO) 6.3 10^3/uL (1.8-7.8); NEUTROPHILS % (AUTO) 66 % (42-75); PLATELET COUNT 144 10^3/uL (130-400); WHITE BLOOD COUNT 9.6 10^3/uL (4.3-11.0)
[2021-05-14 17:17] LABS: ALBUMIN 3.3 GM/DL (3.2-4.5)
[2021-05-14 17:18] LABS: CALCIUM 8.8 MG/DL (8.5-10.1)
[2021-05-14 17:19] LABS: TOTAL PROTEIN 6.5 GM/DL (6.4-8.2)
[2021-05-14 17:20] LABS: POTASSIUM 6.6 MMOL/L (3.6-5.0)
[2021-05-14 17:21] LABS: BILIRUBIN,TOTAL 1.3 MG/DL (0.1-1.0)
[2021-05-14 17:23] LABS: CREATININE SERUM 1.86 MG/DL (0.60-1.30)
[2021-05-14] MEDS: DOPamine DRIP 250 ML IV SCH (17:35)
--- NOTE | 2021-05-14 17:38 | Diagnostic Imaging Report ---
INDICATION: Weakness and heart block. TIME OF EXAM: 5:25 PM Correlation is made with prior chest from 05/04/2021. FINDINGS: Heart is enlarged, but stable. There is moderate to large right and moderate left pleural effusion. There is parenchymal consolidation in the left base. Upper lung aldridge are clear. No pneumothorax is seen. IMPRESSION: Bilateral effusions, right greater as well as bibasilar consolidation. Dictated by: Dictated on workstation # [id number]
[2021-05-14] MEDS ORDERED: CALCIUM GLUC. 10% 4.65 MEQ/10 ML VIAL IV ONE (17:45)
[2021-05-14] MEDS ORDERED: DEXTROSE 50% 50 ML (IMS) SYR IV ONE (17:45)
[2021-05-14] MEDS ORDERED: inSUlin (REGULAR) HUMAN 1 UNIT/0.01 ML (CHARGE PER UNIT) IV ONE (17:45)
[2021-05-14] MEDS ORDERED: SODIUM BICARB 8.4% 50 MEQ/50 ML VIAL IV ONE (17:45)
[2021-05-14] MEDS ORDERED: SODIUM BICARB 8.4% 50 MEQ/50 ML (ABBOTT) SYR ONE (18:21)
--- NOTE | 2021-05-14 20:42 | History & Physical-Hospitalist ---
History of Present Illness HPI/Chief Complaint Nimisha Hogan is an 89 year old female with end stage heart failure, ischemic cardiomyopathy, CAD, CKD3a, paroxysmal atrial fibrillation, cachexia, decubitus ulcers, who presented from her doctor's office due to hypoxia, bradycardia, and hypotension. She is chronically ill with multiple medical comorbidities and is rapidly approaching the end of her life. There have been multiple discussions with the patient and her son about hospice and although she has been agreeable, Charles has not. She had reportedly been having palpitations last night. She has had multiple recent hospitalizations with the most recent being severe sepsis due to a urinary tract infection just last week. She is unable to provide any history at this time. Source: family, RN/MD Exam Limitations: clinical condition Date Seen 05/14/21 Time Seen by a Provider: 20:15 Attending Physician Zackery Bryant MD PCP Elijah Alvarado MD Referring Physician Date of Admission May 14, 2021 at 17:51 Home Medications & Allergies Home Medications Reviewed patient Home Medication Reconciliation performed by pharmacy medication reconciliations pharmacy technician inpatient and/or nursing. Patients Allergies have been reviewed. Allergies Allergies Coded Allergies amoxicillin (Unverified Allergy, Unknown, 07/14/18) Past Codhghk-Jkjvpp-Tlzcuh Hx Patient Social History Tobacco Use?: No Use of E-Cig and/or Vaping dev: No Substance use?: No Alcohol Use?: No Pt feels they are or have been: No Immunizations Up To Date First/Initial COVID19 Vaccinat: NONE Second COVID19 Vaccination Brian: NONE Tetanus Booster (TDap): Unknown Seasonal Allergies Seasonal Allergies: No Current Status Advance Directives: Yes Advance Directive Location: Copy from prev record Primary Language: Indian Preferred Spoken Language: Indian Past Medical History Surgeries: Coronary Stent, 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, Orthopedic, Vascular Surgery Pneumonia 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 Chronic Constipation Glaucoma Skin Did You Recieve Any Treatments: Yes What Type of Treatment Did You: Surgical Intervention Recent Skin Changes Blood Disorders: No Adverse Reaction/Blood Tranf: No Family Medical History Hypertension 19 FATHER Other Conditions/Hx Review of Systems ROS-Unable to Obtain: Patient unable to provide any history due to clinical condition Constitutional: see HPI Physical Exam Physical Exam Vital Signs Vital Signs - First Documented 05/14/21 05/14/21 05/14/21 16:48 17:01 20:15 Temp 36.46519 Pulse 31 Resp 8 B/P (MAP) 91/55 (67) Pulse Ox 97 O2 Delivery Non Rebreather O2 Flow Rate 40.00 Capillary Refill : Greater Than 3 Seconds Height, Weight, BMI Height: 5'5.00" Weight: 107lbs. 1.0oz. 48.669204gx; 20.00 BMI Method:Stated General Appearance: Anxious, Chronically ill, Cachetic, Severe Distress (Tachypnea, uncomfortable) HEENT: Other (Pupils dilated, equal, extraocular movements intact, mucous membranes dry) Respiratory: Accessory Muscle Use, Decreased Breath Sounds, Respiratory Distress (Tachypnea), Other (Wearing Vapotherm) Cardiovascular: No Edema, No Murmur, Other (Regular rate, frequent PVCs) Gastrointestinal: Non Tender, Soft, Distended Back: Other (Decubitus ulcer of sacrum) Extremity: No Non Tender; Pedal Edema, Other (Decubitus ulcers on heels) Neurologic/Psychiatric: Alert, Disoriented, Motor Weakness Skin: Cool, Pallor Results Results/Procedures Labs Laboratory Tests 05/14/21 17:00 Patient resulted labs reviewed. Imaging: Reviewed Imaging Report Assessment/Plan Admission Diagnosis Cardiogenic shock Admission Status: Inpatient Order (span 2 midnights) Reason for Inpatient Admission: Life support Assessment and Plan Cardiogenic shock Symptomatic bradycardia Acute respiratory failure with hypoxia Acute kidney injury superimposed on chronic kidney disease Multiorgan failure Heart failure with reduced ejection fraction Ischemic cardiomyopathy Coronary artery disease Paroxysmal atrial fibrillation Severe protein-calorie malnutrition Cachexia Advanced age Poor prognosis Goals of care discussion Started on IV Dopamine Requiring maximal support with Vapotherm Kidney function worsened from baseline TeleICU consulted Cardiology consulted Discussed current status, poor prognosis, and the patient's previously stated wishes with Charles, deferred on making a decision regarding comfort measures only at this time, will discuss with his brother Palliative care consult May require ethics consult Critical Care Critically Ill Patient Diagnosis/Problems Diagnosis/Problems (1) Cardiogenic shock Status: Acute (2) Symptomatic bradycardia Status: Acute (3) Multiorgan failure Status: Acute (4) Hyperkalemia Status: Acute (5) Acute kidney injury superimposed on chronic kidney disease Status: Acute (6) Acute respiratory failure with hypoxia Status: Acute (7) HFrEF (heart failure with reduced ejection fraction) Status: Chronic (8) Stage 3a chronic kidney disease Status: Chronic (9) Ischemic cardiomyopathy Status: Chronic (10) Atrial fibrillation Status: Acute Qualifiers: Atrial fibrillation type: longstanding persistent Qualified Codes: I48.11 - Longstanding persistent atrial fibrillation (11) CAD (coronary artery disease) Status: Chronic (12) Severe protein-calorie malnutrition Status: Acute (13) Poor prognosis Status: Acute (14) Advanced age Status: Chronic (15) Decubitus ulcers Status: Acute (16) Cachexia Status: Acute ZACKERY BRYANT MD May 14, 2021 20:42
[2021-05-14 21:00] VITALS: BP 104/70
[2021-05-14] MEDS ORDERED: NS IV 1000 ML 1,000 ML IV SCH (21:15)
[2021-05-14] MEDS: DOPamine DRIP 400 MG/250 ML D5W (PRE-MIX) IV SCH (21:48)
[2021-05-14 22:00] VITALS: BP 110/67
[2021-05-14] MEDS ORDERED: OLANZapine 5 MG ODT (ZyPREXA ZYDIS) PO ONE (22:15)
--- NOTE | 2021-05-14 22:23 | Tele-ICU Progress Note ---
Progress Note 89F admitted from primary with hypoxia, bradycardia, hypotension and AMS. Recently admitted for pna, d/c to [place], then home. Yesterday was complaining of palpitations. Son cald cardiology, who advised an extra cardizem 180 if she was tachycardic, which was given. Today she presented to PMD for routine visit, found to be poorly responsive. EMS called, HR 27, BP 80s, SpO2 80s on NRB. Given atropine 1 mg with improvement in HR to 40s, BP improved with !VF. Dopamine initiated. Found to have K 6.6, treated medically. Current BP 106/61, HR 70s, SpO2 93%. Patient is restless, agitated. End of life care has been discussed with son, per report comfort care was recommended. He did agree to DNR/DNI but wanted otherwise ongoing care. Will provide morphine 1 mg prn for comfort, air hunger. Zyprexa zydis x1. Will re-evaluate after. Precedex not an option with bradycardia. Focused Exam Height, Weight, BMI Height: 5'5.00" Weight: 107lbs. 1.0oz. 48.519946ga; 20.00 BMI Method:Stated KELY SALINAS MD May 14, 2021 22:23
[2021-05-14] MEDS: morphine INJ 4 MG/ML 1 ML (VIAL/SYRINGE) IVP PRN (22:25)
[2021-05-14] MEDS ORDERED: RT-ALBUTEROL/IPRATROPIUM 3 ML (DUONEB) VIAL INH PRN (22:45)
[2021-05-14 23:00] VITALS: BP 100/57
[2021-05-15] VITALS (23 sets, daily range): BP systolic 81–109; BP diastolic 44–71
[2021-05-15] MEDS ORDERED: RT-ALBUTEROL/IPRATROPIUM 3 ML (DUONEB) VIAL INH SCH (02:00)
[2021-05-15] MEDS: NS IV 500 ML 500 ML IV SCH (02:22)
[2021-05-15 05:25] LABS: CALCIUM 8.5 MG/DL (8.5-10.1)
[2021-05-15 05:29] LABS: CREATININE SERUM 1.81 MG/DL (0.60-1.30); PHOSPHORUS 5.5 MG/DL (2.3-4.7)
[2021-05-15 05:31] LABS: MAGNESIUM 2.6 MG/DL (1.6-2.4)
[2021-05-15] MEDS: morphine INJ 4 MG/ML 1 ML (VIAL/SYRINGE) IVP PRN ×2 (05:37→23:03)
[2021-05-15] MEDS: MAGNESIUM 1 GM/100 ML IVPB 100 ML IV SCH (05:41)
[2021-05-15] MEDS: POTASSIUM CL 10MEQ/50ML IVPB 50 ML IV SCH (05:41)
[2021-05-15] MEDS: KCL 20 MEQ TAB (K-DUR) PO SCH (05:41)
[2021-05-15] MEDS ORDERED: D5 NS 1000 ML IV SOLUTION 1,000 ML IV ONE (06:07)
[2021-05-15] MEDS ORDERED: DEXTROSE 50% 50 ML (IMS) SYR ONE (06:08)
[2021-05-15] MEDS ORDERED: D5 NS 1000 ML IV SOLUTION 1,000 ML IV SCH (06:15)
[2021-05-15] MEDS ORDERED: DEXTROSE 50% 50 ML (IMS) SYR IV ONE ×2 (06:15→08:15)
[2021-05-15] MEDS ORDERED: inSUlin (REGULAR) HUMAN 1 UNIT/0.01 ML (CHARGE PER UNIT) IV ONE (08:15)
[2021-05-15] MEDS ORDERED: SOD POLYSTERENE 15 GM/60 ML (KAYEXALATE) UNIT DOSE PR ONE (08:15)
[2021-05-15] MEDS ORDERED: SODIUM BICARB 8.4% 50 MEQ/50 ML (ABBOTT) SYR IV ONE (08:15)
[2021-05-15] MEDS ORDERED: CALCIUM CHLORIDE 1 GM/10 ML (IMS) SYR IV ONE (08:15)
--- NOTE | 2021-05-15 08:18 | Consultation-Cardiology ---
HPI-Cardiology Cardiology Consultation: Date of Consultation 05/15/21 Time Seen by a Provider: 08:45 Date of Admission 05-14-21 Attending Physician Claire Bryant MD Admitting Physician Elijah Alvarado MD Consulting Physician ELEN YODER HPI: Chief Complaint: Bradycardia/hypotension Ms. Hogan is a frail 89 yr old female brought to the ED by her son, Nicko, with whom she lives from her PCP appt on 05-14-21 d/t bradycardia, hypotension, hypoxia and decreased LOC per ED records. Unable to obtain any information from pt d/t mental obtundment. Review of Systems-Cardiology Review of Systems Other comments Unable to obtain d/t mental obtundation NWR-Mgwsoj-Iancau Hx Patient Social History 2nd Hand Smoke Exposure: No Have you traveled recently?: No Alcohol Use?: No Pt feels they are or have been: No Immunizations Up To Date Tetanus Booster (TDap): Unknown Past Medical History PMH As described under Assessment. Family Medical History Family Medical History: She has previously reported that her brother had an IN at age 59 Family History: Hypertension 19 FATHER Allergies and Home Medications Allergies Coded Allergies: amoxicillin (Unverified Allergy, Unknown, 07/14/18) Patient Home Medication List Aspirin (Aspirin EC) 81 Mg Tablet.dr, 81 MG PO BID, (Reported) Entered as Reported by: ALEJANDRINA ALMANZA on 05/15/21 104 Last Action: Reviewed Cholecalciferol (Vitamin D3) (Vitamin D3) 25 Mcg Capsule, 25 MCG PO DAILY, (Reported) Entered as Reported by: ALEJANDRINA ALMANZA on 03/20/21 1028 Last Action: Reviewed Cholecalciferol (Vitamin D3) (D3-50) 1,250 Mcg Capsule, 1,250 MCG PO WED, (Reported) Entered as Reported by: ALEJANDRINA ALMANZA on 05/15/21 1042 Last Action: Reviewed Diltiazem HCl (Diltiazem 24Hr ER) 180 Mg Cap.er.24h, 180 MG PO DAILY, (Reported) Entered as Reported by: ALEJANDRINA ALMANZA on 05/15/21 1042 Last Action: Reviewed Furosemide (Furosemide) 20 Mg Tablet, 20 MG PO DAILY, (Reported) Entered as Reported by: JAC ROOT on 05/06/21 0938 Last Action: Reviewed Metoprolol Succinate (Metoprolol Succinate) 25 Mg Tab.er.24h, 25 MG PO DAILY, (Reported) Entered as Reported by: ALEJANDRINA ALMANZA on 05/15/21 1042 Last Action: Reviewed Mirtazapine (Mirtazapine) 15 Mg Tablet, 15 MG PO HS, (Reported) Entered as Reported by: ALEJANDRINA ALMANZA on 03/25/21 1329 Last Action: Reviewed Spironolactone (Spironolactone) 25 Mg Tablet, 25 MG PO Q48H, (Reported) Entered as Reported by: ALEJANDRINA ALMANZA on 03/25/21 1329 Last Action: Reviewed Discontinued Medications Acetaminophen (Tylenol Extra Strength) 500 Mg Tablet, 1,000 MG PO Q6H PRN for PAIN-MILD (1-4), (Reported) Discontinued Reason: No Longer Taking Entered as Reported by: ALEJANDRINA ALMANZA on 03/20/21 1028 Last Action: Discontinued Calcium Carbonate (Calcium Carbonate) 300 Mg Tab.chew, 750 MG PO Q12H PRN for STOMACH UPSET, (Reported) Discontinued Reason: No Longer Taking Entered as Reported by: ALEJANDRINA ALMANZA on 03/20/21 1028 Last Action: Discontinued Cephalexin (Cephalexin) 500 Mg Tablet, 500 MG PO BID Discontinued Reason: No Longer Taking Prescribed by: ANDREI MACIAS on 05/08/21 0949 Last Action: Discontinued Cholecalciferol (Vitamin D3) (Vitamin D3) 1,250 Mcg Capsule, 1,250 MCG PO WED, (Reported) Discontinued Reason: No Longer Taking Entered as Reported by: ALEJANDRINA ALMANZA on 03/20/21 1028 Last Action: Discontinued Diltiazem HCl (Cardizem Cd) 180 Mg Cap.er.24h, 180 MG PO DAILY, (Reported) Discontinued Reason: No Longer Taking Entered as Reported by: JAC ROOT on 05/06/21 0938 Last Action: Discontinued Docusate Sodium (Colace) 100 Mg Capsule, 100 MG PO DAILY, (Reported) Discontinued Reason: No Longer Taking Entered as Reported by: ALEJANDRINA ALMANZA on 03/20/21 1028 Last Action: Discontinued Magnesium Hydroxide (Milk of Magnesia) 2,400 Mg/10 Ml Oral.susp, 30 ML PO DAILY PRN for CONSTIPATION-7TH LINE, (Reported) Discontinued Reason: No Longer Taking Entered as Reported by: ALEJANDRINA ALMANZA on 03/25/212 Last Action: Discontinued Metoprolol Succinate (Metoprolol Succinate) 25 Mg Tab.er.24h, 25 MG PO DAILY Discontinued Reason: No Longer Taking Prescribed by: ANDREI MACIAS on 05/08/21 0949 Last Action: Discontinued Multivitamin with Minerals (Multivitamins with Minerals) 1 Each Tablet, 1 EACH PO DAILY, (Reported) Discontinued Reason: No Longer Taking Entered as Reported by: ALEJANDRINA ALMANZA on 03/25/210 Last Action: Discontinued Zinc Oxide (Desitin) 57 Gm Cream..g., 1 APPLIC TP DAILY, (Reported) Discontinued Reason: No Longer Taking Entered as Reported by: JAC ROOT on 05/06/21937 Last Action: Discontinued Physical Exam-Cardiology Physical Exam Vital Signs/I&O 05/15/21 05/15/21 05/15/21 05/15/21 05:00 06:00 07:00 07:00 Pulse 72 61 70 69 B/P (MAP) 83/60 (68) 108/56 (73) 92/56 (68) Pulse Ox 92 96 100 O2 Delivery Vapotherm Vapotherm Vapotherm O2 Flow Rate 30.00 30.00 30.00 75.00 75.00 75.00 05/15/21 05/15/21 05/15/21 05/15/21 07:28 07:38 08:00 08:04 Temp 35.7 Pulse 66 B/P (MAP) 89/46 (60) Pulse Ox 100 93 95 O2 Delivery Vapotherm Vapotherm Vapotherm O2 Flow Rate 30.00 30.00 25.00 75.00 FiO2 75 40 05/15/21 05/15/21 05/15/21 05/15/21 08:05 09:00 10:00 12:00 Temp 36.2 Pulse 70 69 B/P (MAP) 89/56 (67) 81/44 (56) Pulse Ox 91 96 O2 Delivery Vapotherm Vapotherm Vapotherm O2 Flow Rate 20.00 20.00 20.00 40.00 40.00 40.00 05/15/21 05/15/21 05/15/21 05/15/21 12:00 12:00 13:00 13:00 Pulse 80 69 67 B/P (MAP) 97/57 (70) 95/53 (67) Pulse Ox 95 89 93 O2 Delivery Vapotherm Vapotherm Vapotherm O2 Flow Rate 25.00 20.00 20.00 40.00 40.00 FiO2 40 05/15/21 05/15/21 05/15/21 05/15/21 14:00 14:05 15:00 16:01 Pulse 72 83 B/P (MAP) 93/62 (72) 109/58 (75) Pulse Ox 92 93 93 93 O2 Delivery Vapotherm Vapotherm Vapotherm Vapotherm O2 Flow Rate 20.00 20.00 20.00 20.00 40.00 40.00 FiO2 40 40 05/15/21 00:00 Intake Total 500 ml Balance 500 ml Capillary Refill : Greater Than 3 Seconds Constitutional: other (frail, chachetic; mental obtundation) Neck: No carotid bruit; carotid pulses are 2 + bilaterally Respiratory: No accessory muscle use, No respiratory distress; chest expansion is symmetric, chest is bilaterally symmetric Cardiovascular: irregularly irregular, bradycardia, systolic murmur Gastrointestinal: audible bowel sounds Extremities: no lower extremity edema bilateral Neurologic/Psychiatric: other (not responsive at this time) Skin: warm/dry, pallor; No rash on exposed areas, No ulcerations on exposed areas Data Review Labs Laboratory Tests 05/14/21 17:00: White Blood Count 9.6, Red Blood Count 4.29, Hemoglobin 13.8, Hematocrit 48, Mean Corpuscular Volume 111H, Mean Corpuscular Hemoglobin 32, Mean Corpuscular Hemoglobin Concent 29L, Red Cell Distribution Width 19.6H, Platelet Count 144, Mean Platelet Volume 10.7, Immature Granulocyte % (Auto) 2, Neutrophils (%) (Auto) 66, Lymphocytes (%) (Auto) 20, Monocytes (%) (Auto) 11, Eosinophils (%) (Auto) 1, Basophils (%) (Auto) 0, Neutrophils # (Auto) 6.3, Lymphocytes # (Auto) 1.9, Monocytes # (Auto) 1.1H, Eosinophils # (Auto) 0.1, Basophils # (Auto) 0.0, Immature Granulocyte # (Auto) 0.2H, Sodium Level 141, Potassium Level 6.6*H, Chloride Level 101, Carbon Dioxide Level 22, Anion Gap 18H, Blood Urea Nitrogen 82H, Creatinine 1.86H, Estimat Glomerular Filtration Rate 26, BUN/Creatinine Ratio 44, Glucose Level 132H, Calcium Level 8.8, Corrected Calcium 9.4, Total Bilirubin 1.3H, Aspartate Amino Transf (AST/SGOT) 21, Alanine Aminotransferase (ALT/SGPT) 22, Alkaline Phosphatase 108, Troponin I 0.122H, Total Protein 6.5, Albumin 3.3 05/15/21 04:15: Sodium Level 144, Potassium Level 6.0H, Chloride Level 101, Carbon Dioxide Level 25, Anion Gap 18H, Blood Urea Nitrogen 82H, Creatinine 1.81H, Estimat Glomerular Filtration Rate 26, BUN/Creatinine Ratio 45, Glucose Level 69L, Calcium Level 8.5, Phosphorus Level 5.5H, Magnesium Level 2.6H 05/15/21 14:43: Glucometer 256H 05/15/21 15:15: Urine Color YELLOW, Urine Clarity CLOUDY, Urine pH 5.5, Urine Specific [place] 1.020, Urine Protein 1+H, Urine Glucose (UA) NEGATIVE, Urine Ketones NEGATIVE, Urine Nitrite NEGATIVE, Urine Bilirubin NEGATIVE, Urine Urobilinogen 1.0, Urine Leukocyte Esterase 3+H, Urine RBC (Auto) 3+H, Urine RBC 10-25H, Urine WBC TNTCH, Urine Crystals NONE, Urine Bacteria FEWH, Urine Casts NONE, Urine Mucus NEGATIVE, Urine Yeast FEWH, Urine Culture Indicated YES 05/15/21 15:28: White Blood Count 8.6, Red Blood Count 3.90, Hemoglobin 12.6, Hematocrit 42, Mean Corpuscular Volume 107H, Mean Corpuscular Hemoglobin 32, Mean Corpuscular Hemoglobin Concent 30L, Red Cell Distribution Width 19.5H, Platelet Count 141, Mean Platelet Volume 10.6, Immature Granulocyte % (Auto) 1, Neutrophils (%) (Auto) 79H, Lymphocytes (%) (Auto) 9L, Monocytes (%) (Auto) 10, Eosinophils (%) (Auto) 1, Basophils (%) (Auto) 0, Neutrophils # (Auto) 6.9, Lymphocytes # (Auto) 0.8L, Monocytes # (Auto) 0.8, Eosinophils # (Auto) 0.1, Basophils # (Auto) 0.0, Immature Granulocyte # (Auto) 0.1, Blood Gas Puncture Site PICC LINE, Blood Gas Patient Temperature 36.6, Arterial Blood pH 7.39, Arterial Blood Partial Pressure CO2 57H, Arterial Blood Partial Pressure O2 53L, Arterial Blood HCO3 33H, Arterial Blood Total CO2 35.2H, Arterial Blood Oxygen Saturation 83L, Arterial Blood Base Excess 8.2H, Jose Alfredo Test UNKNOWN, Blood Gas Ventilator Setting NO, Blood Gas Inspired Oxygen 47%, Sodium Level 146H, Potassium Level 5.0, Chloride Level 103, Carbon Dioxide Level 30, Anion Gap 13, Blood Urea Nitrogen 77H, Creatinine 1.71H, Estimat Glomerular Filtration Rate 28, BUN/Creatinine Ratio 45, Glucose Level 150H, Calcium Level 8.9 Radiology NAME: GEO HOGAN [facility] REC#: [id number] PT STATUS: REG ER : 1932 PHYSICIAN: PERCY HERRERA MD ADMIT DATE: 05/14/21/ER Signed Date of Exam:05/14/21 CHEST 1 VIEW, AP/PA ONLY INDICATION: Weakness and heart block. TIME OF EXAM: 5:25 PM Correlation is made with prior chest from 05/04/2021. FINDINGS: Heart is enlarged, but stable. There is moderate to large right and moderate left pleural effusion. There is parenchymal consolidation in the left base. Upper lung aldridge are clear. No pneumothorax is seen. IMPRESSION: Bilateral effusions, right greater as well as bibasilar consolidation. Dictated by: Dictated on workstation # [id number] Dict: 05/14/21 1736 Trans: 05/14/211811 [id number] Interpreted by: ZACKARY RUEDA MD Electronically signed by: ZACKARY RUEDA MD 05/14/211811 ECG Impression ECG Comment a-fib with slow ventricular response A/P-Cardiology Assessment/Admission Diagnosis Mental obtundation Acute renal insufficiency with hyperkalemia - likely secondary to volume depletion Ac on chronic resp failure due to conditions noted below - Pneumonia/atelectasis and a sizable right pleural effusion first seen on CT abd 04/05/[address] chest/abd of 05/04/21 and CXR of 05-14-21 H/O pelvic bleed/hematoma - first seen on CT on abd CT of 04/05/21 and again on 05/04/21 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 - clinically compensated - Last card cath of 09/13/19: mod CD, patent stent in mid LAD (Promus Premier 3 x 12, placed in 2014), marked impairment of LV systolic function with LVEF 20%, global hypokinesis, mild elev of LVEDP - Echo of 03/24/23: LVEF 10-15%, grade 2 diastolic dysfunction, mild MR, mild AI, R pleural effusion, PSP 40-45 mmHg Chronic, mild troponin elevation due to chronic CHF (type II IN) Sinus node dysfuntion with persistent A FIB with intermittent RVR (due to non compliance with meds) - Currently bradycardia likely d/t hyperkalemia and rate controlling agents - She has refused any oral anticoag (has refused on multiple occasions). Also not suitable for anticoag due to h/o spontaneous pelvic bleed Ortho - Recent (January 2021) R hip repair after hip fracture from a non-syncopal fall Low body mass and weakness and cachetic appearance - (worsening over 2019 and 2020) PAD - Peripheral angio of 07/10/17: ectatic abdominal aorta, aorto-iliac calcification, mod dz of renal arteries, diffuse mod disease of both sup fems, 90% ostial and prox stenosis of the L sup fem, single vessel (ant tibial) run o ff in both legs with 90% ostial stenoses of both ant tibs. Peripheral PCI on 07/10/17: balloon angioplasty of ostial L ant tib that reduced 90% ostial stenosis to less than 30% residual, balloon angioplasty and stenting (Absolute Pro 7 x 80 stent, dilated to 5 mm wilder) to the L prox sup fem that reduced stenosis form 90% to 0% residual - Seg pressures of 07/08/17 showed mild to mod PAD of the R leg (WALTER 0.85 on the R and TBI 0.74 on the R) and moderate to mod severe PAD of the L leg (WALTER 0.62 on the L and TBI 0.38 on the L); repeat seg pressures of 07/15/17 (post L-sided intervention) much improved (R WALTER 1.01, R TBI, 0.81; L WALTER 1.06, L TBI 0.82) Abnormal ECG - Chronic RBBB Carotid dz - 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 u/s of 02/15/16 H/o noncompliance - with multiple medications and medical instructions Chronic, bilateral leg swelling and stasis dermatitis ELEN LOZANO May 15, 2021 08:18
[2021-05-15] MEDS ORDERED: NS (IVPB) 250 ML IV ONE (09:00)
[2021-05-15] MEDS ORDERED: CHOL50005 PO (10:42)
[2021-05-15] MEDS ORDERED: DILT180C85 PO (10:42)
[2021-05-15] MEDS ORDERED: ASPI-1238 PO (10:42)
[2021-05-15] MEDS ORDERED: MTP25TSR PO (10:42)
[2021-05-15] MEDS ORDERED: ATROPINE INJECTION 1 MG/10 ML SYR (ABBOTT) INJ ONE (11:02)
[2021-05-15] MEDS ORDERED: DOPamine DRIP 400,000 MCG/250 ML BAG IV ONE (11:02)
--- NOTE | 2021-05-15 12:32 | Tele-ICU Progress Note ---
Subjective Date Seen by a Provider: May 15, 2021 Time Seen by a Provider: 11:02 Sepsis Event Evaluation Height, Weight, BMI Height: 5'5.00" Weight: 107lbs. 1.0oz. 48.021563ce; 20.47 BMI Method:Stated Exam Exam Patient acknowledged, consented, and participated in this virtual visit which was conducted using real time audio/video Vital Signs Date Time Temp Pulse Resp B/P (MAP) Pulse Ox O2 Delivery O2 Flow Rate FiO2 05/15/21 10:00 69 81/44 (56) 96 Vapotherm 20.00 40.00 05/15/21 09:00 70 89/56 (67) 91 Vapotherm 20.00 40.00 05/15/21 08:05 Vapotherm 20.00 40.00 05/15/21 08:04 95 Vapotherm 25.00 40 05/15/21 08:00 66 89/46 (60) 93 Vapotherm 30.00 75.00 05/15/21 07:38 35.7 05/15/21 07:28 100 Vapotherm 30.00 75 05/15/21 07:00 69 05/15/21 07:00 70 92/56 (68) 100 Vapotherm 30.00 75.00 05/15/21 06:00 61 108/56 (73) 96 Vapotherm 30.00 75.00 05/15/21 05:00 72 83/60 (68) 92 Vapotherm 30.00 75.00 05/15/21 04:00 Vapotherm 30.00 75.00 05/15/21 04:00 Vapotherm 30.00 75.00 05/15/21 04:00 68 28 91/56 (68) 99 Vapotherm 30.00 75.00 05/15/21 04:00 Vapotherm 40.00 100 05/15/21 03:00 66 92/61 (71) 99 Vapotherm 40.00 100.00 05/15/21 02:35 96 Vapotherm 40.00 100 05/15/21 02:00 71 82/58 (66) 88 Vapotherm 40.00 100.00 05/15/21 01:27 Vapotherm 40.00 100 05/15/21 01:00 66 05/15/21 01:00 74 98/53 (68) 100 Vapotherm 40.00 100.00 05/15/21 00:00 61 85/48 (60) 100 Vapotherm 40.00 100.00 05/15/21 00:00 36.5 05/14/21 23:00 71 100/57 (71) 98 Vapotherm 40.00 100.00 05/14/21 22:22 90 05/14/21 22:12 36.1 71 89 100 05/14/21 22:04 89 Vapotherm 40.00 100 05/14/21 22:00 85 18 110/67 (81) 90 Vapotherm 40.00 100.00 05/14/21 21:00 68 104/70 (81) 94 Vapotherm 40.00 100.00 05/14/21 20:15 70 24 111/64 89 Vapotherm 40.00 05/14/21 20:00 Vapotherm 40.00 100.00 05/14/21 17:35 39 90/37 05/14/21 17:01 [id number] 05/14/21 17:00 Room Air 05/14/21 16:48 31 8 91/55 (67) 97 Non Rebreather I & O 05/15/21 06:59 Intake Total 500 ml Output Total 95 ml Balance 405 ml Height & Weight Height: 5'5.00" Weight: 107lbs. 1.0oz. 48.424670wm; 20.47 BMI Method:Stated General Appearance: Anxious, Chronically ill, Cachetic, Severe Distress (Tachypnea, uncomfortable) HEENT: Other (Pupils dilated, equal, extraocular movements intact, mucous membranes dry) Respiratory: Accessory Muscle Use, Decreased Breath Sounds, Respiratory Distress (Tachypnea), Other (Wearing Vapotherm) Cardiovascular: No Edema, No Murmur, Other (Regular rate, frequent PVCs) Capillary Refill: Greater Than 3 Seconds Extremity: No Non Tender; Pedal Edema, Other (Decubitus ulcers on heels) Neurologic/Psychiatric: Alert, Disoriented, Motor Weakness Skin: Cool, Pallor Results Lab Laboratory Tests 05/14/21 17:00 05/15/21 04:15 Assessment/Plan Assessment/Plan (Tele-ICU Physician , Progress Note ) Available chart/ vitals / labs / Images reviewed Video assessment done using teleICU camera, rest of exam as per RN Discussed with RN , EXAM PER RN Events overnight : Afebrile I/O = Drips: dopa Pressors: dopa , hemodynamically stable Consultants: riley Hospital course: 05/14- ER to ICU with hypoxia, bradycardia, AMS, cardiogenic shock ( dopamine gtt) hyperKalemia A/P Shock - presumed cardiogenic - doba gtt, arait cards recom Acute resp gavin;lure - on vapotherm 20L , 40 % - cxr with stable effusions , infiltrate vs atelectasis ICM , HFrEF , CAD (- s/p stenting - Echo of 03/24/21: LVEF 10-15%, grade 2 diastolic dysfunction, mild MR, mild AI Bradicardia - h/o Sinus node dysfuntion with persistent A FIB with intermittent RVR/ hugh - as per cards - OFF AC due to h/o spont pelvic hematoma LENA CKD - likely secondary to volume depletion and hypotension - hydration , follow Effusions plural , bilat on CT 05/04 RIGHT >>L -seen on CT abd 04/05/[address] chest/abd of 05/04/21 and CXR of 05-14-21 - monitor , no indication for tap now H/O spontaneous pelvic bleed/hematoma ( nterior to the bladder) - first seen on CT on abd CT of 04/05/21 and again on 05/04/21- stable - OFF AC no w, Hb stable Hperkalemia - Tx x2 - follow closely recemt 05/2021 UA consistent with UTI with Proteus and infitrates on cxr - will check PCT am Chronic, bilateral leg swelling and stasis dermatitis PAD decubitus ulcers Lines : (Central Line Necessity Reviewed) Angela: OG: Nutrition: Analgesia: Anxiety/ delirium VTE Prophylaxis: Stress Ulcer Prophylaxis: Glycemic Control: Plans in collaboration with bedside consultants and IM MDs. Discussed with RN to reach out if any questions or concerns A total of 33 minutes of critical care time was devoted to this patient today, required to treat and/or prevent further deterioration of critical care condition ( as above) . GEORGINA PERES MD May 15, 2021 12:32
--- NOTE | 2021-05-15 13:04 | Consultation-Cardiology ---
HPI-Cardiology Cardiology Consultation: Date of Consultation 05/15/21 Time Seen by a Provider: 08:30 Date of Admission Attending Physician Claire Bryant MD Admitting Physician Elijah Alvarado MD Consulting Physician DAWNA FOOTE MD, MA, FACP, FACC, FSCAI, CCDS HPI: Chief Complaint: Reason for consultation: Bradycardia/hypotension HPI Ms. Hogan is a frail 89 yr old female brought to the ED by her son, Nicko, with w ulises she lives from her PCP appt on 05-14-21 d/t bradycardia, hypotension, hypoxia and decreased LOC per ED records. Unable to obtain any information from pt d/t mental obtundation. Review of Systems-Cardiology Review of Systems Constitutional: other (she is not able to provide a review of systems) HIZ-[id number]-Ndlxdc Hx Patient Social History 2nd Hand Smoke Exposure: No Have you traveled recently?: No Alcohol Use?: No Pt feels they are or have been: No Immunizations Up To Date Tetanus Booster (TDap): Unknown Past Medical History PMH As described under Assessment. Family Medical History Family Medical History: She has previously reported that her brother had an RI at age 59 Family History: Hypertension 19 FATHER Allergies and Home Medications Allergies Coded Allergies: amoxicillin (Unverified Allergy, Unknown, 07/14/18) Patient Home Medication List Home Medication List Reviewed: Yes Aspirin (Aspirin EC) 81 Mg Tablet.dr, 81 MG PO BID, (Reported) Entered as Reported by: ALEJANDRINA ALMANZA on 05/15/21 1042 Last Action: Reviewed Cholecalciferol (Vitamin D3) (Vitamin D3) 25 Mcg Capsule, 25 MCG PO DAILY, (Reported) Entered as Reported by: ALEJANDRINA ALMANZA on 03/20/21 1028 Last Action: Reviewed Cholecalciferol (Vitamin D3) (D3-50) 1,250 Mcg Capsule, 1,250 MCG PO WED, (Reported) Entered as Reported by: ALEJANDRINA ALMANZA on 05/15/21 1042 Last Action: Reviewed Diltiazem HCl (Diltiazem 24Hr ER) 180 Mg Cap.er.24h, 180 MG PO DAILY, (Reported) Entered as Reported by: ALEJANDRINA ALMANZA on 05/15/21 1042 Last Action: Reviewed Furosemide (Furosemide) 20 Mg Tablet, 20 MG PO DAILY, (Reported) Entered as Reported by: JAC ROOT on 05/06/21937 Last Action: Reviewed Metoprolol Succinate (Metoprolol Succinate) 25 Mg Tab.er.24h, 25 MG PO DAILY, (Reported) Entered as Reported by: ALEJANDRINA ALMANZA on 05/15/21 1042 Last Action: Reviewed Mirtazapine (Mirtazapine) 15 Mg Tablet, 15 MG PO HS, (Reported) Entered as Reported by: ALEJANDRINA ALMANZA on 03/25/21 1329 Last Action: Reviewed Spironolactone (Spironolactone) 25 Mg Tablet, 25 MG PO Q48H, (Reported) Entered as Reported by: ALEJANDRINA ALMANZA on 03/25/21 1329 Last Action: Reviewed Discontinued Medications Acetaminophen (Tylenol Extra Strength) 500 Mg Tablet, 1,000 MG PO Q6H PRN for PAIN-MILD (1-4), (Reported) Discontinued Reason: No Longer Taking Entered as Reported by: ALEJANDRINA ALMANZA on 03/20/21 1028 Last Action: Discontinued Calcium Carbonate (Calcium Carbonate) 300 Mg Tab.chew, 750 MG PO Q12H PRN for STOMACH UPSET, (Reported) Discontinued Reason: No Longer Taking Entered as Reported by: ALEJANDRINA ALMANZA on 03/20/21 1028 Last Action: Discontinued Cephalexin (Cephalexin) 500 Mg Tablet, 500 MG PO BID Discontinued Reason: No Longer Taking Prescribed by: ANDREI MACIAS on 05/08/21 0949 Last Action: Discontinued Cholecalciferol (Vitamin D3) (Vitamin D3) 1,250 Mcg Capsule, 1,250 MCG PO WED, (Reported) Discontinued Reason: No Longer Taking Entered as Reported by: ALEJANDRINA ALMANZA on 03/20/21 1028 Last Action: Discontinued Diltiazem HCl (Cardizem Cd) 180 Mg Cap.er.24h, 180 MG PO DAILY, (Reported) Discontinued Reason: No Longer Taking Entered as Reported by: JAC ROOT on 05/06/2138 Last Action: Discontinued Docusate Sodium (Colace) 100 Mg Capsule, 100 MG PO DAILY, (Reported) Discontinued Reason: No Longer Taking Entered as Reported by: ALEJANDRINA ALMANZA on 03/20/21 1028 Last Action: Discontinued Magnesium Hydroxide (Milk of Magnesia) 2,400 Mg/10 Ml Oral.susp, 30 ML PO DAILY PRN for CONSTIPATION-7TH LINE, (Reported) Discontinued Reason: No Longer Taking Entered as Reported by: ALEJANDRINA ALMANZA on 03/25/212 Last Action: Discontinued Metoprolol Succinate (Metoprolol Succinate) 25 Mg Tab.er.24h, 25 MG PO DAILY Discontinued Reason: No Longer Taking Prescribed by: ANDREI MACIAS on 05/08/21 0949 Last Action: Discontinued Multivitamin with Minerals (Multivitamins with Minerals) 1 Each Tablet, 1 EACH PO DAILY, (Reported) Discontinued Reason: No Longer Taking Entered as Reported by: ALEJANDRINA ALMANZA on 03/25/211329 Last Action: Discontinued Zinc Oxide (Desitin) 57 Gm Cream..g., 1 APPLIC TP DAILY, (Reported) Discontinued Reason: No Longer Taking Entered as Reported by: JAC ROOT on 05/06/2138 Last Action: Discontinued Physical Exam-Cardiology Physical Exam Vital Signs/I&O 05/15/21 05/15/21 05/15/21 05/15/21 01:00 01:00 01:27 02:00 Pulse 74 66 71 B/P (MAP) 98/53 (68) 82/58 (66) Pulse Ox 100 88 O2 Delivery Vapotherm Vapotherm Vapotherm O2 Flow Rate 40.00 40.00 40.00 100.00 100.00 FiO2 100 05/15/21 05/15/21 05/15/21 05/15/21 02:35 03:00 04:00 04:00 Pulse 66 68 Resp 28 B/P (MAP) 92/61 (71) 91/56 (68) Pulse Ox 96 99 99 O2 Delivery Vapotherm Vapotherm Vapotherm Vapotherm O2 Flow Rate 40.00 40.00 40.00 30.00 100.00 75.00 FiO2 100 100 05/15/21 05/15/21 05/15/21 05/15/21 04:00 04:00 05:00 06:00 Pulse 72 61 B/P (MAP) 83/60 (68) 108/56 (73) Pulse Ox 92 96 O2 Delivery Vapotherm Vapotherm Vapotherm Vapotherm O2 Flow Rate 30.00 30.00 30.00 30.00 75.00 75.00 75.00 75.00 05/15/21 05/15/21 05/15/21 05/15/21 07:00 07:00 07:28 07:38 Temp 35.7 Pulse 70 69 B/P (MAP) 92/56 (68) Pulse Ox 100 100 O2 Delivery Vapotherm Vapotherm O2 Flow Rate 30.00 30.00 75.00 FiO2 75 05/15/21 05/15/21 05/15/21 05/15/21 08:00 08:04 08:05 09:00 Pulse 66 70 B/P (MAP) 89/46 (60) 89/56 (67) Pulse Ox 93 95 91 O2 Delivery Vapotherm Vapotherm Vapotherm Vapotherm O2 Flow Rate 30.00 25.00 20.00 20.00 75.00 40.00 40.00 FiO2 40 05/15/21 10:00 Pulse 69 B/P (MAP) 81/44 (56) Pulse Ox 96 O2 Delivery Vapotherm O2 Flow Rate 20.00 40.00 05/15/21 00:00 Intake Total 500 ml Balance 500 ml Capillary Refill : Greater Than 3 Seconds Constitutional: No AAO x 3; other (frail, chachetic; mental obtundation) Neck: No carotid bruit; carotid pulses are 2 + bilaterally Respiratory: No accessory muscle use, No respiratory distress; chest expansion is symmetric, chest is bilaterally symmetric Cardiovascular: irregularly irregular, bradycardia, systolic murmur Gastrointestinal: audible bowel sounds Extremities: no lower extremity edema bilateral Neurologic/Psychiatric: other (not responsive at this time) Skin: warm/dry, pallor; No rash on exposed areas, No ulcerations on exposed areas Data Review Labs Laboratory Tests 05/14/21 17:00: White Blood Count 9.6, Red Blood Count 4.29, Hemoglobin 13.8, Hematocrit 48, Mean Corpuscular Volume 111H, Mean Corpuscular Hemoglobin 32, Mean Corpuscular Hemoglobin Concent 29L, Red Cell Distribution Width 19.6H, Platelet Count 144, Mean Platelet Volume 10.7, Immature Granulocyte % (Auto) 2, Neutrophils (%) (Auto) 66, Lymphocytes (%) (Auto) 20, Monocytes (%) (Auto) 11, Eosinophils (%) (Auto) 1, Basophils (%) (Auto) 0, Neutrophils # (Auto) 6.3, Lymphocytes # (Auto) 1.9, Monocytes # (Auto) 1.1H, Eosinophils # (Auto) 0.1, Basophils # (Auto) 0.0, Immature Granulocyte # (Auto) 0.2H, Sodium Level 141, Potassium Level 6.6*H, Chloride Level 101, Carbon Dioxide Level 22, Anion Gap 18H, Blood Urea Nitrogen 82H, Creatinine 1.86H, Estimat Glomerular Filtration Rate 26, BUN/Creatinine Ratio 44, Glucose Level 132H, Calcium Level 8.8, Corrected Calcium 9.4, Total Bilirubin 1.3H, Aspartate Amino Transf (AST/SGOT) 21, Alanine Aminotransferase (ALT/SGPT) 22, Alkaline Phosphatase 108, Troponin I 0.122H, Total Protein 6.5, Albumin 3.3 05/15/21 04:15: Sodium Level 144, Potassium Level 6.0H, Chloride Level 101, Carbon Dioxide Level 25, Anion Gap 18H, Blood Urea Nitrogen 82H, Creatinine 1.81H, Estimat Glomerular Filtration Rate 26, BUN/Creatinine Ratio 45, Glucose Level 69L, Calcium Level 8.5, Phosphorus Level 5.5H, Magnesium Level 2.6H Laboratory Tests 05/14/21 17:00 05/15/21 04:15 A/P-Cardiology Assessment/Admission Diagnosis Acute renal insufficiency with hyperkalemia - likely secondary to volume depletion Bradycardia likely due to ac renal failure and hyperkalemia Hypotension due to bradycardia and volume depletion Mental obtundation due to above-noted conditions Recent hosptalizations with ac on chronic resp failure due to conditions noted below - Pneumonia/atelectasis and a sizable right pleural effusion first seen on CT abd 04/05/[address] chest/abd of 05/04/21 and CXR of 05-14-21 H/O pelvic bleed/hematoma - first seen on CT on abd CT of 04/05/21 and again on 05/04/21 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 - clinically compensated - Last card cath of 09/13/19: mod CD, patent stent in mid LAD (Promus Premier 3 x 12, placed in 2014), marked impairment of LV systolic function with LVEF 20%, global hypokinesis, mild elev of LVEDP - Echo of 03/24/23: LVEF 10-15%, grade 2 diastolic dysfunction, mild MR, mild AI, R pleural effusion, PSP 40-45 mmHg Chronic, mild troponin elevation due to chronic CHF (type II RI) Sinus node dysfunction with persistent A FIB with intermittent RVR (due to noncompliance with meds) - Currently bradycardia likely d/t hyperkalemia and rate controlling agents - She has refused any oral anticoag (has refused on multiple occasions). Also not suitable for anticoag due to h/o spontaneous pelvic bleed Ortho - Recent (January 2021) R hip repair after hip fracture from a non-syncopal fall Low body mass and weakness and cachetic appearance - (worsening over 2019 and 2020) PAD - Peripheral angio of 07/10/17: ectatic abdominal aorta, aorto-iliac calcification, mod dz of renal arteries, diffuse mod disease of both sup fems, 90% ostial and prox stenosis of the L sup fem, single vessel (ant tibial) run off in both legs with 90% ostial stenoses of both ant tibs. Peripheral PCI on : balloon angioplasty of ostial L ant tib that reduced 90% ostial stenosis to less than 30% residual, balloon angioplasty and stenting (Absolute Pro 7 x 80 stent, dilated to 5 mm wilder) to the L prox sup fem that reduced stenosis form 90% to 0% residual - Seg pressures of 07/08/17 showed mild to mod PAD of the R leg (WALTER 0.85 on the R and TBI 0.74 on the R) and moderate to mod severe PAD of the L leg (WALTER 0.62 on the L and TBI 0.38 on the L); repeat seg pressures of 07/15/17 (post L-sided intervention) much improved (R WALTER 1.01, R TBI, 0.81; L WALTER 1.06, L TBI 0.82) Abnormal ECG - Chronic RBBB Carotid dz - 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 u/s of 02/15/16 H/o noncompliance - with multiple medications and medical instructions Chronic, bilateral leg swelling and stasis dermatitis Discussion and Recomendations * Treat hyperkalemia * Hold rate-lowering agents * iv fluids * Monitor labs * superintendent terminal prognosis appear poor because of generally deteriorating health status, multiple comorbidities, and multiple recent hospitalizations DAWNA FOOTE MD [facility] May 15, 2021 13:04
--- NOTE | 2021-05-15 15:00 | Diagnostic Imaging Report ---
INDICATION: PICC line placement. EXAMINATION: Portable chest at 2:55 p.m. FINDINGS: Right upper extremity PICC line tip projects over the SVC. There is bilateral basilar infiltrate and/or atelectasis with small effusions. IMPRESSION: Bilateral basilar infiltrates and/or atelectasis with effusions. No significant change compared to previous day. Dictated by: Dictated on workstation # [id number]
[2021-05-15 15:38] LABS: BILIRUBIN,URINE NEGATIVE (NEGATIVE); CLARITY,URINE CLOUDY; COLOR,URINE YELLOW; GLUCOSE, URINE (UA) NEGATIVE (NEGATIVE); KETONES,URINE NEGATIVE (NEGATIVE); LEUKOCYTE ESTERASE ,URINE 3+ (NEGATIVE); NITRITE,URINE NEGATIVE (NEGATIVE); PH,URINE 5.5 (5-9); PROTEIN,URINE 1+ (NEGATIVE)
[2021-05-15 15:38] LABS: BASOPHILS % (AUTO) 0 % (0-10); EOSINOPHILS # (AUTO) 0.1 10^3/uL (0.0-0.3); EOSINOPHILS % (AUTO) 1 % (0-10); HEMATOCRIT 42 % (35-52); HEMOGLOBIN 12.6 g/dL (11.5-16.0); LYMPHOCYTES # (AUTO) 0.8 10^3/uL (1.0-4.0); LYMPHOCYTES % (AUTO) 9 % (12-44); MEAN CORPUSCULAR HEMOGLOBIN 32 pg (25-34); MEAN CORPUSCULAR HGB CONC 30 g/dL (32-36); MEAN CORPUSCULAR VOLUME 107 fL (80-99); MEAN PLATELET VOLUME 10.6 fL (9.0-12.2); MONOCYTES # (AUTO) 0.8 10^3/uL (0.0-1.0); MONOCYTES % (AUTO) 10 % (0-12); NEUTROPHILS # (AUTO) 6.9 10^3/uL (1.8-7.8); NEUTROPHILS % (AUTO) 79 % (42-75); PLATELET COUNT 141 10^3/uL (130-400); WHITE BLOOD COUNT 8.6 10^3/uL (4.3-11.0)
[2021-05-15 15:39] LABS: ABG BASE EXCESS 8.2 MMOL/L (-2.5-2.5); ABG OXYGEN SATURATION 83 % (94-100); ABG PCO2 57 MMHG (35-45); ABG PH 7.39 (7.37-7.43); ABG PO2 53 MMHG (79-93); ABG TCO2 35.2 MMOL/L (21.0-31.0)
[2021-05-15 15:41] LABS: PATIENT TEMP 36.6; VENTILATOR NO
[2021-05-15 15:55] LABS: BACTERIA,URINE FEW /HPF; WBC,URINE TNTC /HPF; YEAST,URINE FEW /HPF
[2021-05-15 15:56] LABS: CALCIUM 8.9 MG/DL (8.5-10.1)
[2021-05-15 16:00] LABS: CREATININE SERUM 1.71 MG/DL (0.60-1.30)
--- NOTE | 2021-05-15 16:17 | Progress Note - Hospitalist ---
Subjective HPI/CC On Admission Date Seen by Provider: May 15, 2021 Time Seen by Provider: 09:50 Nimisha Hogan is an 89 year old female with end stage heart failure, ischemic cardiomyopathy, CAD, CKD3a, paroxysmal atrial fibrillation, cachexia, decubitus ulcers, who presented from her doctor's office due to hypoxia, bradycardia, and hypotension. She is chronically ill with multiple medical comorbidities and is rapidly approaching the end of her life. There have been multiple discussions with the patient and her son about hospice and although she has been agreeable, Charles has not. She had reportedly been having palpitations last night. She has had multiple recent hospitalizations with the most recent being severe sepsis due to a urinary tract infection just last week. She is unable to provide any history at this time. Subjective/Events-last exam She is sleeping and unable to provide any history. Her sons are at the bedside. We discussed her severe illness on her chronic severe medical comorbidities in the setting of her expressing that she did not want aggressive medical care and saying that she wanted to "go be with [place]" the last time I saw her in the hospital. This sentiment was consistent with other times I have had similar discussions with her in the past. Despite this, her sons have decided to proceed with aggressive care and life sustaining measures and would like a PICC line pam adam for ongoing pressor support. Focused Exam Lactate Level 05/14/21 15:28: Lactic Acid Level 1.14 Objective Exam Vital Signs Vital Signs Date Time Temp Pulse Resp B/P (MAP) Pulse Ox O2 Delivery O2 Flow Rate FiO2 05/15/21 16:01 93 Vapotherm 20.00 40 05/15/21 15:00 83 109/58 (75) 05/15/21 12:00 36.2 05/15/21 04:00 28 Capillary Refill : Greater Than 3 Seconds General Appearance: No Apparent Distress, Chronically ill, Cachetic Respiratory: No Respiratory Distress, Decreased Breath Sounds Cardiovascular: No Murmur, Other (Regular rate, frequent PVCs) Gastrointestinal: Normal Bowel Sounds, Soft Extremity: Normal Inspection, Pedal Edema Neurologic/Psychiatric: Other (Lethargic, incomprehensible speech) Skin: Pallor, Other (Decubitus ulcers of heels and sacrum) Results/Procedures Lab Laboratory Tests 05/14/21 17:00 05/15/21 04:15 05/15/21 15:28 Patient resulted labs reviewed. Imaging: Reviewed Imaging Report Assessment/Plan Assessment and Plan Assess & Plan/Chief Complaint Cardiogenic shock Symptomatic bradycardia Acute respiratory failure with hypoxia Acute kidney injury superimposed on chronic kidney disease Urinary tract infection Multiorgan failure Heart failure with reduced ejection fraction Ischemic cardiomyopathy Coronary artery disease Paroxysmal atrial fibrillation Severe protein-calorie malnutrition Cachexia Advanced age Poor prognosis Goals of care discussion Continues on IV Dopamine Family wants to proceed with PICC placement for pressor support Vapotherm requirements decreased Kidney function worsened from baseline, stable Begin Rocephin for UTI TeleICU consulted Cardiology consulted Discussed current status, poor prognosis, and the patient's previously stated wishes with Charles and brother, plan to proceed with aggressive care despite patient's previously stated wishes Palliative care consulted Consider ethics consult Critical Care Critically Ill Patient Diagnosis/Problems Diagnosis/Problems (1) Cardiogenic shock Status: Acute (2) Symptomatic bradycardia Status: Acute (3) Multiorgan failure Status: Acute (4) Hyperkalemia Status: Acute (5) Acute kidney injury superimposed on chronic kidney disease Status: Acute (6) Acute respiratory failure with hypoxia Status: Acute (7) HFrEF (heart failure with reduced ejection fraction) Status: Chronic (8) Stage 3a chronic kidney disease Status: Chronic (9) Ischemic cardiomyopathy Status: Chronic (10) Atrial fibrillation Status: Acute Qualifiers: Atrial fibrillation type: longstanding persistent Qualified Codes: I48.11 - Longstanding persistent atrial fibrillation (11) CAD (coronary artery disease) Status: Chronic (12) Severe protein-calorie malnutrition Status: Acute (13) Poor prognosis Status: Acute (14) Advanced age Status: Chronic (15) Decubitus ulcers Status: Acute (16) Cachexia Status: Acute (17) UTI (urinary tract infection) Status: Acute ZACKERY DELACRUZ MD May 15, 2021 16:17
[2021-05-15] MEDS: D5 1/2 NS 1000 ML IV SOLUTION 1,000 ML IV SCH ×2 (17:19→18:28)
[2021-05-15] MEDS: cefTRIAXone 1,000 MG in WATER (STERILE) FOR INJECTION 10 ML IV SCH (17:20)
[2021-05-15] MEDS: DOPamine DRIP 400 MG/250 ML D5W (PRE-MIX) IV SCH (17:20)
[2021-05-16] VITALS (24 sets, daily range): BP systolic 77–130; BP diastolic 49–94
[2021-05-16] MEDS: D5 1/2 NS 1000 ML IV SOLUTION 1,000 ML IV SCH ×4 (01:52→23:39)
[2021-05-16 04:53] LABS: BASOPHILS % (AUTO) 0 % (0-10); EOSINOPHILS # (AUTO) 0.2 10^3/uL (0.0-0.3); EOSINOPHILS % (AUTO) 2 % (0-10); HEMATOCRIT 40 % (35-52); HEMOGLOBIN 11.9 g/dL (11.5-16.0); LYMPHOCYTES # (AUTO) 1.2 10^3/uL (1.0-4.0); LYMPHOCYTES % (AUTO) 15 % (12-44); MEAN CORPUSCULAR HEMOGLOBIN 32 pg (25-34); MEAN CORPUSCULAR HGB CONC 30 g/dL (32-36); MEAN CORPUSCULAR VOLUME 108 fL (80-99); MEAN PLATELET VOLUME 10.5 fL (9.0-12.2); MONOCYTES # (AUTO) 0.7 10^3/uL (0.0-1.0); MONOCYTES % (AUTO) 9 % (0-12); NEUTROPHILS % (AUTO) 74 % (42-75); PLATELET COUNT 130 10^3/uL (130-400); WHITE BLOOD COUNT 8.2 10^3/uL (4.3-11.0)
[2021-05-16 05:06] LABS: POTASSIUM 4.3 MMOL/L (3.6-5.0)
[2021-05-16 05:07] LABS: CALCIUM 8.1 MG/DL (8.5-10.1)
[2021-05-16 05:11] LABS: PHOSPHORUS 3.7 MG/DL (2.3-4.7)
[2021-05-16 05:12] LABS: CREATININE SERUM 1.62 MG/DL (0.60-1.30)
[2021-05-16 05:14] LABS: MAGNESIUM 2.3 MG/DL (1.6-2.4)
[2021-05-16] MEDS: POTASSIUM CL 10MEQ/50ML IVPB 50 ML IV SCH (06:17)
[2021-05-16] MEDS: MAGNESIUM 1 GM/100 ML IVPB 100 ML IV SCH (06:17)
[2021-05-16] MEDS: KCL 20 MEQ TAB (K-DUR) PO SCH (06:18)
[2021-05-16] MEDS: morphine INJ 4 MG/ML 1 ML (VIAL/SYRINGE) IVP PRN (08:22)
--- NOTE | 2021-05-16 08:57 | Tele-ICU Progress Note ---
Subjective Date Seen by a Provider: May 16, 2021 Time Seen by a Provider: 08:57 Sepsis Event Evaluation Height, Weight, BMI Height: 5'5.00" Weight: 107lbs. 1.0oz. 48.531043fx; 20.47 BMI Method:Stated Focused Exam Lactate Level 05/14/21 15:28: Lactic Acid Level 1.14 Exam Exam Patient acknowledged, consented, and participated in this virtual visit which was conducted using real time audio/video Vital Signs Date Time Temp Pulse Resp B/P (MAP) Pulse Ox O2 Delivery O2 Flow Rate FiO2 05/16/21 08:00 77 97/53 (68) 97 Vapotherm 15.00 35.00 05/16/21 07:39 36.3 05/16/21 07:23 93 Vapotherm 15.00 35 05/16/21 07:00 74 23 85/53 (64) 96 Vapotherm 15.00 35.00 05/16/21 06:51 92 Vapotherm 15.00 35 05/16/21 06:29 70 05/16/21 06:00 80 26 100/53 (69) 89 Vapotherm 15.00 35.00 05/16/21 05:00 78 24 96/54 (68) 95 Vapotherm 15.00 35.00 05/16/21 04:00 93 Vapotherm 20.00 40 05/16/21 04:00 77 23 108/49 (68) 90 Vapotherm 15.00 35.00 05/16/21 03:00 75 20 77/65 (69) 92 Vapotherm 15.00 35.00 05/16/21 02:00 77 36 86/69 (75) 86 Vapotherm 15.00 35.00 05/16/21 01:54 94 Vapotherm 20.00 40 05/16/21 01:00 75 05/16/21 01:00 76 25 96/63 (74) 92 Vapotherm 20.00 40.00 05/16/21 00:00 71 25 97/51 (66) 93 Vapotherm 20.00 40.00 05/16/21 00:00 93 Vapotherm 20.00 40 05/15/21 23:00 76 25 102/58 (73) 91 Vapotherm 20.00 40.00 05/15/21 22:00 69 27 91/56 (68) 93 Vapotherm 20.00 40.00 05/15/21 21:00 66 19 93/64 (74) 95 Vapotherm 20.00 40.00 05/15/21 20:30 95 Vapotherm 20.00 40 05/15/21 20:00 67 14 93/46 (62) 95 Vapotherm 20.00 40.00 05/15/21 20:00 93 Vapotherm 20.00 40 05/15/21 20:00 37.0 05/15/21 19:00 76 05/15/21 19:00 67 19 87/71 (76) 95 Vapotherm 20.00 40.00 05/15/21 18:00 73 90/49 (63) 92 Vapotherm 20.00 40.00 05/15/21 17:20 89 95/65 05/15/21 17:00 81 86/58 (67) 90 Vapotherm 20.00 40.00 05/15/21 16:01 93 Vapotherm 20.00 40 05/15/21 16:00 77 99/47 (64) 94 Vapotherm 20.00 40.00 05/15/21 15:00 83 109/58 (75) 93 Vapotherm 20.00 40.00 05/15/21 14:05 93 Vapotherm 20.00 40 05/15/21 14:00 72 93/62 (72) 92 Vapotherm 20.00 40.00 05/15/21 13:00 67 95/53 (67) 93 Vapotherm 20.00 40.00 05/15/21 13:00 69 05/15/21 12:00 80 97/57 (70) 89 Vapotherm 20.00 40.00 05/15/21 12:00 95 Vapotherm 25.00 40 05/15/21 12:00 36.2 05/15/21 10:00 69 81/44 (56) 96 Vapotherm 20.00 40.00 05/15/21 09:00 70 89/56 (67) 91 Vapotherm 20.00 40.00 I & O 05/16/21 07:00 Intake Total 1510 ml Output Total 540 ml Balance 970 ml Height & Weight Height: 5'5.00" Weight: 107lbs. 1.0oz. 48.078811yy; 20.47 BMI Method:Stated General Appearance: No Apparent Distress, Chronically ill, Cachetic HEENT: Other (Pupils dilated, equal, extraocular movements intact, mucous membranes dry) Respiratory: No Respiratory Distress, Decreased Breath Sounds Cardiovascular: No Murmur, Other (Regular rate, frequent PVCs) Capillary Refill: Greater Than 3 Seconds Extremity: Normal Inspection, Pedal Edema Neurologic/Psychiatric: Other (Lethargic, incomprehensible speech) Skin: Pallor, Other (Decubitus ulcers of heels and sacrum) Results Lab Laboratory Tests 05/14/21 17:00 05/15/21 04:15 05/15/21 15:28 05/16/21 04:40 Assessment/Plan Assessment/Plan (Tele-ICU Physician , Progress Note ) Available chart/ vitals / labs / Images reviewed Video assessment done using teleICU camera, rest of exam as per RN Discussed with RN , EXAM PER RN Events overnight : Afebrile I/O = pos 1400 Drips: dopa, D5 1/2 Pressors: dopa , hemodynamically stable Consultants: cards Hospital course: 05/14- ER to ICU with hypoxia, bradycardia, AMS, cardiogenic shock ( dopamine gtt) hyperKalemia 05/16 - VApotherm 15L 35 % , dopa 2.5 A/P Shock - presumed cardiogenic - doba gtt - down to 2.5 today , as per cards Acute resp gavin;lure - on VApotherm 15L 35 %- IMPROVED - cxr with stable effusions , infiltrate vs atelectasis ICM , HFrEF , CAD (- s/p stenting - Echo of 03/24/21: LVEF 10-15%, grade 2 diastolic dysfunction, mild MR, mild AI - on IVF now , no signs of VO as per RB exan - will follow carefully Bradicardia - h/o Sinus node dysfuntion with persistent A FIB with intermittent RVR/ hugh - as per cards - OFF AC due to h/o spont pelvic hematoma LENA CKD - likely secondary to volume depletion and hypotension - hydration , follow - IMPROVING Urine cx - +yeast -recemt 05/2021 UA consistent with UTI with Proteus and infitrates on cxr - on cefepime 05/15 -> Effusions plural , bilat on CT 05/04 - RIGHT >>L -seen on CT abd 04/05/[address] chest/abd of 05/04/21 and CXR of 05-14-21 - monitor , no indication for tap now H/O spontaneous pelvic bleed/hematoma ( nterior to the bladder) - first seen on CT on abd CT of 04/05/21 and again on 05/04/21- stable - OFF AC no w, Hb stable Hperkalemia - RESOLVED - follow closely Chronic, bilateral leg swelling and stasis dermatitis PAD decubitus ulcers- reportedly better NUTRITION - not safe to swallow - monitor VS OG TF - as per bedside discussin with family Lines : PICC RUE 05/15 (Central Line Necessity Reviewed) Angela: 05/15 OG: Nutrition: Analgesia: Anxiety/ delirium VTE Prophylaxis: Stress Ulcer Prophylaxis: Glycemic Control: Plans in collaboration with bedside consultants and IM MDs. Discussed with RN to reach out if any questions or concerns A total of 31 minutes of critical care time was devoted to this patient today, required to treat and/or prevent further deterioration of critical care condition ( as above) . GEORGINA PERES MD May 16, 2021 08:57
--- NOTE | 2021-05-16 09:14 | Progress Note - Cardiology ---
Cardiology SOAP Progress Note Subjective: Does not report cp or shortness of breath or other symptoms. Appear confused. Objective: I&O/Vital Signs 05/15/21 05/15/21 05/16/21 05/16/21 22:00 23:00 00:00 00:00 Pulse 69 76 71 Resp 27 25 25 B/P (MAP) 91/56 (68) 102/58 (73) 97/51 (66) Pulse Ox 93 91 93 93 O2 Delivery Vapotherm Vapotherm Vapotherm Vapotherm O2 Flow Rate 20.00 20.00 20.00 20.00 40.00 40.00 40.00 FiO2 40 05/16/21 05/16/21 05/16/21 05/16/21 01:00 01:00 01:54 02:00 Pulse 76 75 77 Resp 25 36 B/P (MAP) 96/63 (74) 86/69 (75) Pulse Ox 92 94 86 O2 Delivery Vapotherm Vapotherm Vapotherm O2 Flow Rate 20.00 20.00 15.00 40.00 35.00 FiO2 40 05/16/21 05/16/21 05/16/21 05/16/21 03:00 04:00 04:00 05:00 Pulse 75 77 78 Resp 20 23 24 B/P (MAP) 77/65 (69) 108/49 (68) 96/54 (68) Pulse Ox 92 90 93 95 O2 Delivery Vapotherm Vapotherm Vapotherm Vapotherm O2 Flow Rate 15.00 15.00 20.00 15.00 35.00 35.00 35.00 FiO2 40 05/16/21 05/16/21 05/16/21 05/16/21 06:00 06:29 06:51 07:00 Pulse 80 70 74 Resp 26 23 B/P (MAP) 100/53 (69) 85/53 (64) Pulse Ox 89 92 96 O2 Delivery Vapotherm Vapotherm Vapotherm O2 Flow Rate 15.00 15.00 15.00 35.00 35.00 FiO2 35 05/16/21 05/16/21 05/16/21 07:23 07:39 08:00 Temp 36.3 Pulse 77 B/P (MAP) 97/53 (68) Pulse Ox 93 97 O2 Delivery Vapotherm Vapotherm O2 Flow Rate 15.00 15.00 35.00 FiO2 35 05/16/21 00:00 Intake Total 1510 ml Output Total 240 ml Balance 1270 ml Weight (Pounds): 107 Weight (Ounces): 1.0 Weight (Calculated Kilograms): 48.169755 Constitutional: No AAO x 3; other (frail, chachetic; confused, mininmally responsive) Respiratory: No accessory muscle use, No respiratory distress; chest expansion is symmetric, chest is bilaterally symmetric Cardiovascular: irregularly irregular, bradycardia, systolic murmur Gastrointestional: audible bowel sounds Extremities: no lower extremity edema bilateral Neurologic/Psychiatric: other (not responsive at this time) Skin: warm/dry, pallor; No rash on exposed areas, No ulcerations on exposed areas Results/Procedures: Labs Laboratory Tests 05/15/21 14:43: Glucometer 256H 05/15/21 15:15: Urine Color YELLOW, Urine Clarity CLOUDY, Urine pH 5.5, Urine Specific [place] 1.020, Urine Protein 1+H, Urine Glucose (UA) NEGATIVE, Urine Ketones NEGATIVE, Urine Nitrite NEGATIVE, Urine Bilirubin NEGATIVE, Urine Urobilinogen 1.0, Urine Leukocyte Esterase 3+H, Urine RBC (Auto) 3+H, Urine RBC 10-25H, Urine WBC TNTCH, Urine Crystals NONE, Urine Bacteria FEWH, Urine Casts NONE, Urine Mucus NEGATIVE, Urine Yeast FEWH, Urine Culture Indicated YES 05/15/21 15:28: White Blood Count 8.6, Red Blood Count 3.90, Hemoglobin 12.6, Hematocrit 42, Mean Corpuscular Volume 107H, Mean Corpuscular Hemoglobin 32, Mean Corpuscular Hemoglobin Concent 30L, Red Cell Distribution Width 19.5H, Platelet Count 141, Mean Platelet Volume 10.6, Immature Granulocyte % (Auto) 1, Neutrophils (%) (Auto) 79H, Lymphocytes (%) (Auto) 9L, Monocytes (%) (Auto) 10, Eosinophils (%) (Auto) 1, Basophils (%) (Auto) 0, Neutrophils # (Auto) 6.9, Lymphocytes # (Auto) 0.8L, Monocytes # (Auto) 0.8, Eosinophils # (Auto) 0.1, Basophils # (Auto) 0.0, Immature Granulocyte # (Auto) 0.1, Blood Gas Puncture Site PICC LINE, Blood Gas Patient Temperature 36.6, Arterial Blood pH 7.39, Arterial Blood Partial Pressure CO2 57H, Arterial Blood Partial Pressure O2 53L, Arterial Blood HCO3 33H, Arterial Blood Total CO2 35.2H, Arterial Blood Oxygen Saturation 83L, Arterial Blood Base Excess 8.2H, Jose Alfredo Test UNKNOWN, Blood Gas Ventilator Setting NO, Blood Gas Inspired Oxygen 47%, Sodium Level 146H, Potassium Level 5.0, Chloride Level 103, Carbon Dioxide Level 30, Anion Gap 13, Blood Urea Nitrogen 77H, Creatinine 1.71H, Estimat Glomerular Filtration Rate 28, BUN/Creatinine Ratio 45, Glucose Level 150H, Calcium Level 8.9 05/16/21 04:40: White Blood Count 8.2, Red Blood Count 3.68L, Hemoglobin 11.9, Hematocrit 40, Mean Corpuscular Volume 108H, Mean Corpuscular Hemoglobin 32, Mean Corpuscular Hemoglobin Concent 30L, Red Cell Distribution Width 19.6H, Platelet Count 130, Mean Platelet Volume 10.5, Immature Granulocyte % (Auto) 1, Neutrophils (%) (Auto) 74, Lymphocytes (%) (Auto) 15, Monocytes (%) (Auto) 9, Eosinophils (%) (Auto) 2, Basophils (%) (Auto) 0, Neutrophils # (Auto) 6.0, Lymphocytes # (Auto) 1.2, Monocytes # (Auto) 0.7, Eosinophils # (Auto) 0.2, Basophils # (Auto) 0.0, Immature Granulocyte # (Auto) 0.1, Sodium Level 144, Potassium Level 4.3, Chloride Level 104, Carbon Dioxide Level 29, Anion Gap 11, Blood Urea Nitrogen 72H, Creatinine 1.62H, Estimat Glomerular Filtration Rate 30, BUN/Creatinine R atio 44, Glucose Level 156H, Calcium Level 8.1L, Phosphorus Level 3.7, Magnesium Level 2.3 Microbiology 05/15/21 Urine Culture - Preliminary, Resulted YEAST 05/14/21 MRSA Screen - Final, Complete MRSA not isolated Laboratory Tests 05/14/21 17:00 05/15/21 04:15 05/15/21 15:28 05/16/21 04:40 A/P: Assessment: Acute renal insufficiency with hyperkalemia - likely secondary to volume depletion Bradycardia likely due to ac renal failure and hyperkalemia Hypotension due to bradycardia and volume depletion Mental obtundation due to above-noted conditions Cachexia and failure to thrive Recent hosptalizations with ac on chronic resp failure due to conditions noted below - Pneumonia/atelectasis and a sizable right pleural effusion first seen on CT abd 04/05/[address] chest/abd of 05/04/21 and CXR of 05-14-21 H/O pelvic bleed/hematoma - first seen on CT on abd CT of 04/05/21 and again on 05/04/21 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 - clinically compensated - Last card cath of 09/13/19: mod CD, patent stent in mid LAD (Promus Premier 3 x 12, placed in 2014), marked impairment of LV systolic function with LVEF 20%, global hypokinesis, mild elev of LVEDP - Echo of 03/24/23: LVEF 10-15%, grade 2 diastolic dysfunction, mild MR, mild AI, R pleural effusion, PSP 40-45 mmHg Chronic, mild troponin elevation due to chronic CHF (type II TN) Sinus node dysfunction with persistent A FIB with intermittent RVR (due to noncompliance with meds) - Currently bradycardia likely d/t hyperkalemia and rate controlling agents - She has refused any oral anticoag (has refused on multiple occasions). Also not suitable for anticoag due to h/o spontaneous pelvic bleed Ortho - Recent (January 2021) R hip repair after hip fracture from a non-syncopal fall Low body mass and weakness and cachetic appearance - (worsening over 2019 and 2020) PAD - Peripheral angio of 07/10/17: ectatic abdominal aorta, aorto-iliac calcification, mod dz of renal arteries, diffuse mod disease of both sup fems, 90% ostial and prox stenosis of the L sup fem, single vessel (ant tibial) run off in both legs with 90% ostial stenoses of both ant tibs. Peripheral PCI on 07/10/17: balloon angioplasty of ostial L ant tib that reduced 90% ostial stenosis to less than 30% residual, balloon angioplasty and stenting (Absolute Pro 7 x 80 stent, dilated to 5 mm wilder) to the L prox sup fem that reduced stenosis form 90% to 0% residual - Seg pressures of 07/08/17 showed mild to mod PAD of the R leg (WALTER 0.85 on the R and TBI 0.74 on the R) and moderate to mod severe PAD of the L leg (WALTER 0.62 on the L and TBI 0.38 on the L); repeat seg pressures of 07/15/17 (post L-sided intervention) much improved (R WALTER 1.01, R TBI, 0.81; L WALTER 1.06, L TBI 0.82) Abnormal ECG - Chronic RBBB Carotid dz - 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 u/s of 02/15/16 H/o noncompliance - with multiple medications and medical instructions Chronic, bilateral leg swelling and stasis dermatitis Plan: * Renal insuff, heart rate, and bp appear to be improving * Try to taper off dopamine * Hold rate-lowering agents * iv fluids * Monitor labs * Poor prognosis: generally deteriorating health status, multiple comorbidities, and multiple recent hospitalizations * No invasive measure because of previous discussions with the patient and sev ere comorbidities with poor prognosis DAWNA FOTOE MD FACP [facility] May 16, 2021 09:14
[2021-05-16] MEDS: FLUCONAZOLE 100 MG/50 ML IVPB IV SCH ×2 (10:11)
[2021-05-16] MEDS ORDERED: NS (IVPB) 250 ML IV ONE (13:30)
--- NOTE | 2021-05-16 15:09 | Progress Note - Hospitalist ---
Subjective HPI/CC On Admission Date Seen by Provider: May 16, 2021 Time Seen by Provider: 09:25 Nimisha Hogan is an 89 year old female with end stage heart failure, ischemic cardiomyopathy, CAD, CKD3a, paroxysmal atrial fibrillation, cachexia, decubitus ulcers, who presented from her doctor's office due to hypoxia, bradycardia, and hypotension. She is chronically ill with multiple medical comorbidities and is rapidly approaching the end of her life. There have been multiple discussions with the patient and her son about hospice and although she has been agreeable, Charles has not. She had reportedly been having palpitations last night. She has had multiple recent hospitalizations with the most recent being severe sepsis due to a urinary tract infection just last week. She is unable to provide any history at this time. Subjective/Events-last exam She wakes up and is able to speak a bit. She denies pain. She is unable to provide much information. Focused Exam Lactate Level 05/14/21 15:28: Lactic Acid Level 1.14 Objective Exam Vital Signs Vital Signs Date Time Temp Pulse Resp B/P (MAP) Pulse Ox O2 Delivery O2 Flow Rate FiO2 05/16/21 14:00 71 27 107/60 (76) 95 Nasal Cannula 2.00 05/16/21 11:35 36.2 05/16/21 07:23 35 Capillary Refill : Greater Than 3 Seconds General Appearance: No Apparent Distress, Chronically ill, Cachetic Respiratory: No Respiratory Distress, Decreased Breath Sounds, Other (Wearing Vapotherm) Cardiovascular: Regular Rate, Rhythm (Frequent PVCs), No Murmur Gastrointestinal: Normal Bowel Sounds, Non Tender, Soft Extremity: Normal Inspection, Non Tender, Pedal Edema Neurologic/Psychiatric: Alert, Disoriented, Motor Weakness Skin: Cool, Pallor Results/Procedures Lab Laboratory Tests 05/15/21 15:28 05/16/21 04:40 Patient resulted labs reviewed. Imaging: Reviewed Imaging Report Assessment/Plan Assessment and Plan Assess & Plan/Chief Complaint Cardiogenic shock Symptomatic bradycardia Acute respiratory failure with hypoxia Acute kidney injury superimposed on chronic kidney disease Urinary tract infection Multiorgan failure Heart failure with reduced ejection fraction Ischemic cardiomyopathy Coronary artery disease Paroxysmal atrial fibrillation Severe protein-calorie malnutrition Cachexia Advanced age Poor prognosis Goals of care discussion Weaning IV Dopamine Vapotherm requirements decreased, attempt to transition to nasal cannula Kidney function worsened from baseline, slightly improved Continue Rocephin for possible UTI Begin Diflucan for yeast infection TeleICU consulted Cardiology consulted Discussed current status, poor prognosis, and the patient's previously stated wishes with Charles and brother, plan to proceed with aggressive care despite patient's previously stated wishes Palliative care consulted Consider ethics consult Critical Care Critically Ill Patient Diagnosis/Problems Diagnosis/Problems (1) Cardiogenic shock Status: Acute (2) Symptomatic bradycardia Status: Acute (3) Multiorgan failure Status: Acute (4) Hyperkalemia Status: Acute (5) Acute kidney injury superimposed on chronic kidney disease Status: Acute (6) Acute respiratory failure with hypoxia Status: Acute (7) HFrEF (heart failure with reduced ejection fraction) Status: Chronic (8) Stage 3a chronic kidney disease Status: Chronic (9) Ischemic cardiomyopathy Status: Chronic (10) Atrial fibrillation Status: Acute Qualifiers: Atrial fibrillation type: longstanding persistent Qualified Codes: I48.11 - Longstanding persistent atrial fibrillation (11) CAD (coronary artery disease) Status: Chronic (12) Severe protein-calorie malnutrition Status: Acute (13) Poor prognosis Status: Acute (14) Advanced age Status: Chronic (15) Decubitus ulcers Status: Acute (16) Cachexia Status: Acute (17) UTI (urinary tract infection) Status: Acute ZACKERY DELACRUZ MD May 16, 2021 15:09
[2021-05-16] MEDS: cefTRIAXone 1,000 MG in WATER (STERILE) FOR INJECTION 10 ML IV SCH (16:29)
[2021-05-16] MEDS: DOPamine DRIP 400 MG/250 ML D5W (PRE-MIX) IV SCH (20:42)
[2021-05-17] VITALS (15 sets, daily range): BP systolic 85–141; BP diastolic 55–107
[2021-05-17] MEDS: D5 1/2 NS 1000 ML IV SOLUTION 1,000 ML IV SCH ×4 (04:18→21:18)
[2021-05-17 04:32] LABS: BASOPHILS % (AUTO) 0 % (0-10); EOSINOPHILS # (AUTO) 0.1 10^3/uL (0.0-0.3); EOSINOPHILS % (AUTO) 1 % (0-10); HEMATOCRIT 41 % (35-52); HEMOGLOBIN 12.3 g/dL (11.5-16.0); LYMPHOCYTES % (AUTO) 12 % (12-44); MEAN CORPUSCULAR HEMOGLOBIN 32 pg (25-34); MEAN CORPUSCULAR HGB CONC 30 g/dL (32-36); MEAN CORPUSCULAR VOLUME 108 fL (80-99); MEAN PLATELET VOLUME 9.9 fL (9.0-12.2); MONOCYTES # (AUTO) 0.6 10^3/uL (0.0-1.0); MONOCYTES % (AUTO) 7 % (0-12); NEUTROPHILS # (AUTO) 6.8 10^3/uL (1.8-7.8); NEUTROPHILS % (AUTO) 79 % (42-75); PLATELET COUNT 109 10^3/uL (130-400); WHITE BLOOD COUNT 8.6 10^3/uL (4.3-11.0)
[2021-05-17 04:52] LABS: CALCIUM 7.9 MG/DL (8.5-10.1); CREATININE SERUM 1.15 MG/DL (0.60-1.30); MAGNESIUM 2.3 MG/DL (1.6-2.4); PHOSPHORUS 3.2 MG/DL (2.3-4.7); POTASSIUM 4.2 MMOL/L (3.6-5.0)
[2021-05-17] MEDS: MAGNESIUM 1 GM/100 ML IVPB 100 ML IV SCH (05:18)
[2021-05-17] MEDS: POTASSIUM CL 10MEQ/50ML IVPB 50 ML IV SCH (05:18)
[2021-05-17] MEDS: KCL 20 MEQ TAB (K-DUR) PO SCH (05:19)
--- NOTE | 2021-05-17 08:08 | Tele-ICU Progress Note ---
Subjective Date Seen by a Provider: May 17, 2021 Time Seen by a Provider: 09:54 Subjective/Events-last exam Remains on nasal cannula, 2 lpm, SpO2 in 90's On Rocephin for PNA, IV fluconzaole for yeast in urine CXR 05/15 showed elevated right tyree-diaphragm probable pleural effusion on right Pt is DNR/DNI Now off dopamine [for bradycardia, no further bradycardia[ Sepsis Event Evaluation Height, Weight, BMI Height: 5'5.00" Weight: 107lbs. 1.0oz. 48.212450ty; 20.47 BMI Method:Stated Focused Exam Lactate Level 05/14/21 15:28: Lactic Acid Level 1.14 Exam Exam Patient acknowledged, consented, and participated in this virtual visit which was conducted using real time audio/video Vital Signs Date Time Temp Pulse Resp B/P (MAP) Pulse Ox O2 Delivery O2 Flow Rate FiO2 05/17/21 07:04 Nasal Cannula 2.00 05/17/21 07:00 103 25 93/65 (74) 95 Nasal Cannula 2.00 05/17/21 07:00 92 05/17/21 06:00 105 34 101/66 (78) 86 Nasal Cannula 2.00 05/17/21 05:00 91 18 106/56 (73) 86 Nasal Cannula 2.00 05/17/21 04:17 36.4 05/17/21 04:00 101 25 121/89 (100) 86 Nasal Cannula 2.00 05/17/21 04:00 Nasal Cannula 2.00 05/17/21 03:00 115 16 107/81 (90) 86 Nasal Cannula 2.00 05/17/21 02:00 83 28 94/55 (68) 86 Nasal Cannula 2.00 05/17/21 01:00 101 05/17/21 01:00 88 15 94/67 (76) 86 Nasal Cannula 2.00 05/17/21 00:00 Nasal Cannula 2.00 05/17/21 00:00 101 25 96/72 (80) 86 Nasal Cannula 2.00 05/16/21 23:26 36.2 05/16/21 23:00 111 30 130/94 (106) 86 Nasal Cannula 2.00 05/16/21 22:00 97 19 119/87 (98) 90 Nasal Cannula 2.00 05/16/21 21:08 91 Nasal Cannula 2.00 05/16/21 21:00 78 28 91/60 (70) 92 Nasal Cannula 2.00 05/16/21 20:00 84 14 101/80 (87) 91 Nasal Cannula 2.00 05/16/21 20:00 Nasal Cannula 2.00 05/16/21 19:00 92 19 111/69 (83) 93 Nasal Cannula 2.00 05/16/21 19:00 86 05/16/21 18:00 83 15 105/59 (74) 94 Nasal Cannula 2.00 05/16/21 17:00 77 44 100/59 (73) 95 Nasal Cannula 2.00 05/16/21 16:00 87 30 103/86 (92) 97 Nasal Cannula 2.00 05/16/21 16:00 Nasal Cannula 2.00 05/16/21 15:00 78 38 89/69 (76) 95 Nasal Cannula 2.00 05/16/21 14:00 71 27 107/60 (76) 95 Nasal Cannula 2.00 05/16/21 13:19 70 13 95/57 (70) 95 Nasal Cannula 2.00 05/16/21 13:01 86 05/16/21 12:00 68 19 92/56 (68) 100 Nasal Cannula 2.00 05/16/21 11:51 Nasal Cannula 2.00 05/16/21 11:35 36.2 05/16/21 11:00 77 31 97/83 (88) 97 Nasal Cannula 2.00 05/16/21 10:27 92 Nasal Cannula 2.00 05/16/21 10:00 76 32 99/58 (72) 93 Nasal Cannula 2.00 05/16/21 09:39 Nasal Cannula 2.00 05/16/21 09:00 81 29 92/50 (64) 93 Vapotherm 15.00 35.00 I & O 05/17/21 07:00 Intake Total 2450 ml Output Total 635 ml Balance 1815 ml Height & Weight Height: 5'5.00" Weight: 107lbs. 1.0oz. 48.744513yf; 20.47 BMI Method:Stated General Appearance: Chronically ill, Cachetic, Other (confused at times, doing better, ) HEENT: PERRL/EOMI, Other (very dry oral mucosa) Neck: Normal Inspection Respiratory: Lungs Clear, Other (diminished throughout; poor effort, short shallow breaths) Cardiovascular: Regular Rate, Rhythm, Bradycardia (profound), Irregularly Irregular Capillary Refill: Greater Than 3 Seconds Gastrointestinal: normal bowel sounds, non tender (some right sided pain probably due to old pelvic hematoma), soft Extremity: Normal Inspection, No Pedal Edema, Pedal Edema (+ 3 leg edema, left a little better) Neurologic/Psychiatric: Alert, Depressed Affect, Disoriented Skin: Cool, Pallor Results Lab Laboratory Tests 05/15/21 15:28 05/16/21 04:40 05/17/21 04:25 Assessment/Plan Assessment/Plan shock-BP is better - presumed cardiogenic - dobatamine off, no dopamine Acute resp gavin;lure - now on 2 lpm IMPROVED - cxr with stable effusions , infiltrate vs atelectasis ICM , HFrEF , CAD (- s/p stenting - Echo of 03/24/21: LVEF 10-15%, grade 2 diastolic dysfunction, mild MR, mild AI - on IVF now , no signs of VO as per RB exan - will follow carefully Bradicardia - h/o Sinus node dysfuntion with persistent A FIB with intermittent RVR/ hugh - as per cards - OFF AC due to h/o spont pelvic hematoma LENA CKD - likely secondary to volume depletion and hypotension - hydration , follow - IMPROVING Urine cx - +yeast -recemt 05/2021 UA consistent with UTI with Proteus and infitrates on cxr - on cefepime 05/15 -> Effusions plural , bilat on CT 05/04 RIGHT >>L -seen on CT abd 04/05/[address] chest/abd of 05/04/21 and CXR of 05-14-21 - monitor , no indication for tap now H/O spontaneous pelvic bleed/hematoma ( nterior to the bladder) - first seen on CT on abd CT of 04/05/21 and again on 05/04/21- stable - OFF AC no w, Hb stable Hperkalemia - RESOLVED - follow closely Chronic, bilateral leg swelling and stasis dermatitis PAD decubitus ulcers- reportedly better NUTRITION - not safe to swallow - monitor VS OG TF - as per bedside discussin with family Lines : PICC RUE 05/15 (Central Line Necessity Reviewed) Angela: 05/15 OG: Nutrition: Analgesia: Anxiety/ delirium VTE Prophylaxis: Stress Ulcer Prophylaxis: Glycemic Control: Plans in collaboration with bedside consultants and IM MDs. Discussed with RN to reach out if any questions or concerns A total of 31 minutes of critical care time was devoted to this patient toda Critical Care: Critically Ill Patient Time spent with patient (mins): 20 KATIE RODRIGUEZ MD May 17, 2021 08:08
[2021-05-17] MEDS: FLUCONAZOLE 100 MG/50 ML IVPB IV SCH ×2 (08:40)
--- NOTE | 2021-05-17 15:30 | Progress Note - Cardiology ---
Cardiology SOAP Progress Note Subjective: Does not respond to any questions Objective: I&O/Vital Signs 05/17/21 05/17/21 05/17/21 05/17/21 04:00 04:00 04:17 05:00 Temp 36.4 Pulse 101 91 Resp 25 18 B/P (MAP) 121/89 (100) 106/56 (73) Pulse Ox 86 86 O2 Delivery Nasal Cannula Nasal Cannula Nasal Cannula O2 Flow Rate 2.00 2.00 2.00 05/17/21 05/17/21 05/17/21 05/17/21 06:00 07:00 07:00 07:04 Pulse 105 92 103 Resp 34 25 B/P (MAP) 101/66 (78) 93/65 (74) Pulse Ox 86 95 O2 Delivery Nasal Cannula Nasal Cannula Nasal Cannula O2 Flow Rate 2.00 2.00 2.00 05/17/21 05/17/21 05/17/21 05/17/21 08:00 09:00 11:00 11:03 Pulse 93 93 82 Resp 27 30 B/P (MAP) 96/68 (77) 85/64 (71) 107/57 (74) Pulse Ox 95 93 94 O2 Delivery Nasal Cannula Nasal Cannula Nasal Cannula Nasal Cannula O2 Flow Rate 2.00 2.00 2.00 1.00 05/17/21 12:36 Pulse 101 05/17/21 00:00 Intake Total 350 ml Output Total 360 ml Balance -10 ml Weight (Pounds): 107 Weight (Ounces): 1.0 Weight (Calculated Kilograms): [id number] Constitutional: other (frail, chachetic; confused, mininmally responsive) Respiratory: No accessory muscle use, No respiratory distress; chest expansion is symmetric, chest is bilaterally symmetric Cardiovascular: irregularly irregular, bradycardia, systolic murmur Gastrointestional: audible bowel sounds Extremities: no lower extremity edema bilateral Neurologic/Psychiatric: other (not responsive at this time) Skin: warm/dry, pallor Results/Procedures: Labs Laboratory Tests 05/17/21 04:25: White Blood Count 8.6, Red Blood Count 3.81, Hemoglobin 12.3, Hematocrit 41, Mean Corpuscular Volume 108H, Mean Corpuscular Hemoglobin 32, Mean Corpuscular Hemoglobin Concent 30L, Red Cell Distribution Width 19.1H, Platelet Count 109L, Mean Platelet Volume 9.9, Immature Granulocyte % (Auto) 1, Neutrophils (%) (Auto) 79H, Lymphocytes (%) (Auto) 12, Monocytes (%) (Auto) 7, Eosinophils (%) (Auto) 1, Basophils (%) (Auto) 0, Neutrophils # (Auto) 6.8, Lymphocytes # (Auto) 1.0, Monocytes # (Auto) 0.6, Eosinophils # (Auto) 0.1, Basophils # (Auto) 0.0, Immature Granulocyte # (Auto) 0.1, Sodium Level 143, Potassium Level 4.2, Chloride Level 104, Carbon Dioxide Level 29, Anion Gap 10, Blood Urea Nitrogen 52H, Creatinine 1.15, Estimat Glomerular Filtration Rate 45, BUN/Creatinine Ratio 45, Glucose Level 112H, Calcium Level 7.9L, Phosphorus Level 3.2, Magnesium Level 2.3 Microbiology 05/15/21 Urine Culture - Final, Complete YEAST 05/14/21 MRSA Screen - Final, Complete MRSA not isolated Laboratory Tests 05/16/21 04:40 05/17/21 04:25 A/P: Assessment: Acute renal insufficiency with hyperkalemia - likely secondary to volume depletion Bradycardia likely due to ac renal failure and hyperkalemia, improved Hypotension due to bradycardia and volume depletion Mental obtundation due to above-noted conditions Cachexia and failure to thrive Recent hosptalizations with ac on chronic resp failure due to conditions noted below - Pneumonia/atelectasis and a sizable right pleural effusion first seen on CT abd 04/05/[address] chest/abd of 05/04/21 and CXR of 05-14-21 H/O pelvic bleed/hematoma - first seen on CT on abd CT of 04/05/21 and again on 05/04/21 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 - clinically compensated - Last card cath of 09/13/19: mod CD, patent stent in mid LAD (Promus Premier 3 x 12, placed in 2014), marked impairment of LV systolic function with LVEF 20%, global hypokinesis, mild elev of LVEDP - Echo of 03/24/23: LVEF 10-15%, grade 2 diastolic dysfunction, mild MR, mild AI, R pleural effusion, PSP 40-45 mmHg Chronic, mild troponin elevation due to chronic CHF (type II AL) Sinus node dysfunction with persistent A FIB with intermittent RVR (due to noncompliance with meds) - Currently bradycardia likely d/t hyperkalemia and rate controlling agents - She has refused any oral anticoag (has refused on multiple occasions). Also not suitable for anticoag due to h/o spontaneous pelvic bleed Ortho - Recent (January 2021) R hip repair after hip fracture from a non-syncopal fall Low body mass and weakness and cachetic appearance - (worsening over 2019 and 2020) PAD - Peripheral angio of 07/10/17: ectatic abdominal aorta, aorto-iliac calcification, mod dz of renal arteries, diffuse mod disease of both sup fems, 90% ostial and prox stenosis of the L sup fem, single vessel (ant tibial) run off in both legs with 90% ostial stenoses of both ant tibs. Peripheral PCI on 07/10/17: balloon angioplasty of ostial L ant tib that reduced 90% ostial stenos is to less than 30% residual, balloon angioplasty and stenting (Absolute Pro 7 x 80 stent, dilated to 5 mm wilder) to the L prox sup fem that reduced stenosis form 90% to 0% residual - Seg pressures of 07/08/17 showed mild to mod PAD of the R leg (WALTER 0.85 on the R and TBI 0.74 on the R) and moderate to mod severe PAD of the L leg (WALTER 0.62 on the L and TBI 0.38 on the L); repeat seg pressures of 07/15/17 (post L-sided intervention) much improved (R WALTER 1.01, R TBI, 0.81; L WALTER 1.06, L TBI 0.82) Abnormal ECG - Chronic RBBB Carotid dz - 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 u/s of 02/15/16 H/o noncompliance - with multiple medications and medical instructions Chronic, bilateral leg swelling and stasis dermatitis Plan: * Currently off vasopressors and heart rate and renal function have improved, but remains poorly and unable to communicate/function * Extremely poor prognosis: generally deteriorating health status, multiple comorbidities, and multiple recent hospitalizations * No invasive measure because of previous discussions with the patient and severe comorbidities with poor prognosis * We recommend consideration of comfort care as also appears to have been rubia arteaga's desire herself when she was more lucid DAWNA FOOTE MD FACP FACC CCDS May 17, 2021 15:30
[2021-05-17] MEDS: cefTRIAXone 1,000 MG in WATER (STERILE) FOR INJECTION 10 ML IV SCH (15:58)
--- NOTE | 2021-05-17 17:43 | Progress Note - Hospitalist ---
Subjective HPI/CC On Admission Date Seen by Provider: May 17, 2021 Time Seen by Provider: 09:40 Nimisha Hogan is an 89 year old female with end stage heart failure, ischemic cardiomyopathy, CAD, CKD3a, paroxysmal atrial fibrillation, cachexia, decubitus ulcers, who presented from her doctor's office due to hypoxia, bradycardia, and hypotension. She is chronically ill with multiple medical comorbidities and is rapidly approaching the end of her life. There have been multiple discussions with the patient and her son about hospice and although she has been agreeable, Charles has not. She had reportedly been having palpitations last night. She has had multiple recent hospitalizations with the most recent being severe sepsis due to a urinary tract infection just last week. She is unable to provide any history at this time. Subjective/Events-last exam She is more awake today. She denies pain and says she is comfortable at this time. She is alert and oriented. She says she doesn't remember what happened the past two days. She was updated on her current status and the preceding events and decisions. We discussed her plan of care. She says if she gets sick again that she wants us to "just let me go". She again communicates that she does not like taking some of the pills because she has trouble swallowing them. We discussed that if she wants to get better then she will need to take the pills and work with therapy to try to regain her strengh. She would also need to increase her intake due to her malnutrition. She communicated that she does not want to do those things and would like to be made comfortable. We discussed hospice and she agreed that this aligned with what she wants. She does not want to be brought back to the hospital if she gets sick again. She does not want to go to a penitentiary again. She wants to go home. Objective Exam Vital Signs Vital Signs Date Time Temp Pulse Resp B/P (MAP) Pulse Ox O2 Delivery O2 Flow Rate FiO2 05/17/21 16:02 37.0 100 42 141/107 (118) 95 Nasal Cannula 1.00 05/16/21 07:23 35 Capillary Refill : Greater Than 3 Seconds General Appearance: Chronically ill, Cachetic, Mild Distress (tachypnea) Respiratory: Lungs Clear, Respiratory Distress (tachypnea) Cardiovascular: No Murmur, Irregularly Irregular Gastrointestinal: Normal Bowel Sounds, Soft Extremity: Pedal Edema, Other (decubitus ulcers of heels) Neurologic/Psychiatric: Alert, Oriented x3, Depressed Affect, Motor Weakness Skin: Cool, Pallor Results/Procedures Lab Laboratory Tests 05/17/21 04:25 Patient resulted labs reviewed. Imaging: Reviewed Imaging Report Assessment/Plan Assessment and Plan Assess & Plan/Chief Complaint Acute kidney injury superimposed on chronic kidney disease Yeast urinary tract infection Heart failure with reduced ejection fraction Ischemic cardiomyopathy Coronary artery disease Paroxysmal atrial fibrillation Severe protein-calorie malnutrition Cachexia Advanced age Poor prognosis Goals of care discussion Off IV Dopamine On oxygen for comfort Kidney function improving Stop Rocephin, no evidence for bacterial UTI Continue Diflucan for yeast UTI TeleICU consulted Cardiology consulted Palliative care consulted Spiritual care consulted Planning for meeting with Charles this afternoon Consider ethics consult Cardiogenic shock, resolved Symptomatic bradycardia, resolved Acute respiratory failure with hypoxia, resolved Multiorgan failure, resolved Critical Care Critically Ill Patient Diagnosis/Problems Diagnosis/Problems (1) Cardiogenic shock Status: Acute (2) Symptomatic bradycardia Status: Acute (3) Multiorgan failure Status: Acute (4) Hyperkalemia Status: Acute (5) Acute kidney injury superimposed on chronic kidney disease Status: Acute (6) Acute respiratory failure with hypoxia Status: Acute (7) HFrEF (heart failure with reduced ejection fraction) Status: Chronic (8) Stage 3a chronic kidney disease Status: Chronic (9) Ischemic cardiomyopathy Status: Chronic (10) Atrial fibrillation Status: Acute Qualifiers: Atrial fibrillation type: longstanding persistent Qualified Codes: I48.11 - Longstanding persistent atrial fibrillation (11) CAD (coronary artery disease) Status: Chronic (12) Severe protein-calorie malnutrition Status: Acute (13) Poor prognosis Status: Acute (14) Advanced age Status: Chronic (15) Decubitus ulcers Status: Acute (16) Cachexia Status: Acute (17) UTI (urinary tract infection) Status: Acute ZACKERY DELACRUZ MD May 17, 2021 17:43
[2021-05-17] MEDS: DOPamine DRIP 400 MG/250 ML D5W (PRE-MIX) IV SCH (21:07)
[2021-05-17] MEDS: morphine INJ 4 MG/ML 1 ML (VIAL/SYRINGE) IVP PRN (21:13)
[2021-05-18 01:37] VITALS: BP 104/60
[2021-05-18 04:26] LABS: BASOPHILS % (AUTO) 0 % (0-10)
[2021-05-18 04:28] LABS: EOSINOPHILS # (AUTO) 0.1 10^3/uL (0.0-0.3); EOSINOPHILS % (AUTO) 2 % (0-10); HEMATOCRIT 42 % (35-52); HEMOGLOBIN 12.3 g/dL (11.5-16.0); LYMPHOCYTES # (AUTO) 1.9 10^3/uL (1.0-4.0); LYMPHOCYTES % (AUTO) 23 % (12-44); MEAN CORPUSCULAR HEMOGLOBIN 32 pg (25-34); MEAN CORPUSCULAR HGB CONC 29 g/dL (32-36); MEAN CORPUSCULAR VOLUME 110 fL (80-99); MEAN PLATELET VOLUME 10.5 fL (9.0-12.2); MONOCYTES # (AUTO) 0.7 10^3/uL (0.0-1.0); MONOCYTES % (AUTO) 9 % (0-12); NEUTROPHILS # (AUTO) 5.4 10^3/uL (1.8-7.8); NEUTROPHILS % (AUTO) 66 % (42-75); PLATELET COUNT 114 10^3/uL (130-400); WHITE BLOOD COUNT 8.2 10^3/uL (4.3-11.0)
[2021-05-18 04:30] VITALS: BP 104/80
[2021-05-18] MEDS ORDERED: LORazepam INJ 2 MG/ML (ATIVAN) VIAL IVP ONE (04:30)
[2021-05-18 04:34] LABS: POTASSIUM 4.4 MMOL/L (3.6-5.0)
[2021-05-18] MEDS ORDERED: LORazepam INJ 2 MG/ML (ATIVAN) VIAL ONE (04:34)
[2021-05-18 04:36] LABS: CALCIUM 7.8 MG/DL (8.5-10.1)
[2021-05-18 04:40] LABS: CREATININE SERUM 0.91 MG/DL (0.60-1.30); PHOSPHORUS 3.2 MG/DL (2.3-4.7)
[2021-05-18] MEDS: KCL 20 MEQ TAB (K-DUR) PO SCH (04:40)
[2021-05-18] MEDS: POTASSIUM CL 10MEQ/50ML IVPB 50 ML IV SCH (04:40)
[2021-05-18 04:42] LABS: MAGNESIUM 1.9 MG/DL (1.6-2.4)
[2021-05-18] MEDS: MAGNESIUM 1 GM/100 ML IVPB 100 ML IV SCH (05:22)
[2021-05-18 08:10] VITALS: BP 89/65
[2021-05-18] MEDS: FLUCONAZOLE 100 MG/50 ML IVPB IV SCH ×2 (09:10)
--- NOTE | 2021-05-18 10:42 | Cardiology Progress Note ---
Progress Note-Cardiology Events since last exam Date Seen by Provider: May 18, 2021 Time Seen by Provider: 10:34 Events since last exam We are following her due to shock and bradycardia which have now improved. She also has coronary artery disease and chronic heart failure. Last evening I was called by the nurse because the patient was very agitated and hallucinating. When this happened, she became tachycardic. I had the nurse give her 1 dose of IV lorazepam. Since then, the patient has been sleeping. When I saw her, she was essentially obtunded. I could not get her to open her eyes or answer any q uestions. I spoke with her nurse who tells me she may be discharged to home later today. Certain portions of this document may have been dictated utilizing voice recognition technology. Inherent to this technology, typographical and grammatical errors may exist. As much as I am diligent to identify and correct these mistakes, some errors may remain in the document. Vitals Last set of Vitals Signs Vital Signs 05/16/21 05/18/21 07:23 08:10 Temp 36.6 Pulse 98 Resp 40 B/P (MAP) 89/65 (73) Pulse Ox 95 O2 Delivery Nasal Cannula O2 Flow Rate 1.00 FiO2 35 Labs Labs Laboratory Tests 05/18/21 04:15 Exam Vital Signs Vital Signs Date Time Temp Pulse Resp B/P (MAP) Pulse Ox O2 Delivery O2 Flow Rate FiO2 05/18/21 08:10 Nasal Cannula 1.00 05/18/21 08:10 36.6 98 40 89/65 (73) 95 05/16/21 07:23 35 Physical Exam General: Obtunded, possibly due to lorazepam given earlier today. She is cachectic and appears chronically ill. Eye: No xanthelasma. HENT: Normocephalic. Neck: Jugular venous pressure does not appear elevated. Respiratory: Lungs are clear to auscultation. Respirations are non-labored. Breath sounds are equal. Symmetrical chest wall expansion. Cardiovascular: Normal rate. Irregular rhythm. No murmur. No gallop. 2+ bilateral pretibial edema with venous stasis changes. Gastrointestinal: Soft. Normal bowel sounds. Skin: Warm. Dry. Neurologic: Sedated/obtunded. Psychiatric: Not obtainable due to sedation. Labs Laboratory Tests Test 10/16/21 04:15 Range/Units White Blood Count 8.2 4.3-11.0 10^3/uL Red Blood Count 3.85 3.80-5.11 10^6/uL Hemoglobin 12.3 11.5-16.0 g/dL Hematocrit 42 35-52 % Mean Corpuscular Volume 110 H 80-99 fL Mean Corpuscular Hemoglobin 32 25-34 pg Mean Corpuscular Hemoglobin Concent 29 L 32-36 g/dL Red Cell Distribution Width 18.6 H 10.0-14.5 % Platelet Count 114 L 130-400 10^3/uL Mean Platelet Volume 10.5 9.0-12.2 fL Immature Granulocyte % (Auto) 1 % Neutrophils (%) (Auto) 66 42-75 % Lymphocytes (%) (Auto) 23 12-44 % Monocytes (%) (Auto) 9 0-12 % Eosinophils (%) (Auto) 2 0-10 % Basophils (%) (Auto) 0 0-10 % Neutrophils # (Auto) 5.4 1.8-7.8 10^3/uL Lymphocytes # (Auto) 1.9 1.0-4.0 10^3/uL Monocytes # (Auto) 0.7 0.0-1.0 10^3/uL Eosinophils # (Auto) 0.1 0.0-0.3 10^3/uL Basophils # (Auto) 0.0 0.0-0.1 10^3/uL Immature Granulocyte # (Auto) 0.1 0.0-0.1 10^3/uL Percent Immature Platelet Fraction 4.6 0.0-7.6 % Sodium Level 141 135-145 MMOL/L Potassium Level 4.4 3.6-5.0 MMOL/L Chloride Level 105 98-107 MMOL/L Carbon Dioxide Level 26 21-32 MMOL/L Anion Gap 10 5-14 MMOL/L Blood Urea Nitrogen 40 H 7-18 MG/DL Creatinine 0.91 0.60-1.30 MG/DL Estimat Glomerular Filtration Rate 58 BUN/Creatinine Ratio 44 Glucose Level 103 70-105 MG/DL Calcium Level 7.8 L 8.5-10.1 MG/DL Phosphorus Level 3.2 2.3-4.7 MG/DL Magnesium Level 1.9 1.6-2.4 MG/DL Diagnosis/Problems Diagnosis/Problems (1) Shock Assessment & Plan: This may have been related to the profound bradycardia at the time of admission. This has now resolved. Her dopamine has been discontinued. I would avoid aggressive use of medications for the heart failure or she may develop recurrent shock. (2) Bradycardia Assessment & Plan: This is now also resolved. This may have been related to hyperkalemia secondary to her acute on chronic kidney disease. I would avoid beta-stella due to the bradycardia and hypotension. (3) Coronary artery disease without angina pectoris Assessment & Plan: She is not having any angina. She did have an elevated troponin level which was probably a type II non-ST elevation myocardial infarction due to her multitude of issues at the time of admission. She is not a candidate for cardiac catheterization. Given her frailty and chronic debility, she is also not an ideal candidate for antiplatelet agents (aspirin or clopidogrel) as she is at very high risk of hemorrhagic side effects. (4) Acute on chronic heart failure with reduced ejection fraction and diastolic dysfunction Status: Acute Assessment & Plan: Due to her chronic debility, it is difficult to assess her functional status. As above, given her bradycardia and shock accompanied by the acute kidney injury on chronic kidney disease that were present at the time of admission, she is not a good candidate for the usual guideline directed medical therapy. At this point in time, cardiology has nothing else to offer. The current plan is for discharge to home today. As such, cardiology will sign off. Please call if you have other questions or concerns. Given that she is most likely near end-of-life, we will not arrange for any follow-up visits in our office unless her status changes. (5) Ischemic cardiomyopathy Status: Chronic Assessment & Plan: As above, she is not a candidate for guideline directed medical therapy as noted above. MAURILIO KAISER JR, MD May 18, 2021 10:42
[2021-05-18 11:36] VITALS: BP 123/90
[2021-05-18 15:18] VITALS: BP 112/95
[2021-05-18] MEDS: cefTRIAXone 1,000 MG in WATER (STERILE) FOR INJECTION 10 ML IV SCH (16:44)
[2021-05-18 19:00] VITALS: BP 101/76
--- NOTE | 2021-05-18 22:13 | Progress Note - Hospitalist ---
Subjective HPI/CC On Admission Date Seen by Provider: May 18, 2021 Time Seen by Provider: 09:15 Nimisha Hogan is an 89 year old female with end stage heart failure, ischemic cardiomyopathy, CAD, CKD3a, paroxysmal atrial fibrillation, cachexia, decubitus ulcers, who presented from her doctor's office due to hypoxia, bradycardia, and hypotension. She is chronically ill with multiple medical comorbidities and is rapidly approaching the end of her life. There have been multiple discussions with the patient and her son about hospice and although she has been agreeable, Charles has not. She had reportedly been having palpitations last night. She has had multiple recent hospitalizations with the most recent being severe sepsis due to a urinary tract infection just last week. She is unable to provide any history at this time. Subjective/Events-last exam She is sleeping and unarousable. There is no family at the bedside. Objective Exam Vital Signs Vital Signs Date Time Temp Pulse Resp B/P (MAP) Pulse Ox O2 Delivery O2 Flow Rate FiO2 05/18/21 15:18 36.8 113 35 112/95 (101) 90 Nasal Cannula 1.00 05/16/21 07:23 35 Capillary Refill : Greater Than 3 Seconds General Appearance: No Apparent Distress, Chronically ill, Cachetic Respiratory: Lungs Clear, No Respiratory Distress Cardiovascular: Irregularly Irregular, Tachycardia Gastrointestinal: Normal Bowel Sounds, Soft Extremity: No Inflammation; Pedal Edema, Swelling Neurologic/Psychiatric: Other (obtunded, minimally responsive) Skin: Warm/Dry, Pallor Results/Procedures Lab Laboratory Tests 05/18/21 04:15 Patient resulted labs reviewed. Imaging: Reviewed Imaging Report Assessment/Plan Assessment and Plan Assess & Plan/Chief Complaint Paroxysmal atrial fibrillation with RVR Delirium Yeast urinary tract infection Heart failure with reduced ejection fraction Ischemic cardiomyopathy Coronary artery disease Severe protein-calorie malnutrition Cachexia Advanced age Poor prognosis Goals of care discussion Required Ativan due to delirium overnight Unable to take oral meds TeleICU consulted Cardiology consulted Palliative care consulted Spiritual care consulted Cardiogenic shock, resolved Symptomatic bradycardia, resolved Acute respiratory failure with hypoxia, resolved Multiorgan failure, resolved Acute kidney injury superimposed on chronic kidney disease, resolved Critical Care Critically Ill Patient Diagnosis/Problems Diagnosis/Problems (1) Cardiogenic shock Status: Resolved Resolution Date/Time: 05/18/21 @ 22:13 (2) Symptomatic bradycardia Status: Resolved Resolution Date/Time: 05/18/21 @ 22:14 (3) Multiorgan failure Status: Resolved Resolution Date/Time: 05/18/21 @ 22:14 (4) Hyperkalemia Status: Resolved Resolution Date/Time: 05/18/21 @ 22:14 (5) Acute kidney injury superimposed on chronic kidney disease Status: Resolved Resolution Date/Time: 05/18/21 @ 22:14 (6) Acute respiratory failure with hypoxia Status: Resolved Resolution Date/Time: 05/18/21 @ 22:14 (7) HFrEF (heart failure with reduced ejection fraction) Status: Chronic (8) Stage 3a chronic kidney disease Status: Chronic (9) Ischemic cardiomyopathy Status: Chronic (10) Atrial fibrillation Status: Acute Qualifiers: Atrial fibrillation type: longstanding persistent Qualified Codes: I48.11 - Longstanding persistent atrial fibrillation (11) CAD (coronary artery disease) Status: Chronic (12) Severe protein-calorie malnutrition Status: Acute (13) Poor prognosis Status: Acute (14) Advanced age Status: Chronic (15) Decubitus ulcers Status: Acute (16) Cachexia Status: Acute (17) UTI (urinary tract infection) Status: Acute (18) Delirium Status: Acute (19) Paroxysmal atrial fibrillation with RVR Status: Acute ZACKERY DELACRUZ MD May 18, 2021 22:13
[2021-05-19] VITALS: BP 58/41
== END 2021-05-19 12:30 | disposition expired ==
LOC: EDUNIT# 16:43 → ER 16:43 → ICU 17:51 → EDLOC 17:51
PROVIDERS: ADMIT Internal Medicine; ATTEND Internal Medicine
DX: I49.5 Sick sinus syndrome (principal); J96.21 Acute and chronic respiratory failure with hypoxia; I21.A1 Myocardial infarction type 2; I50.43 Acute on chronic combined systolic (congestive) and diastolic (congestive) heart failure; E43 Unspecified severe protein-calorie malnutrition; N17.9 Acute kidney failure, unspecified; I48.19 Other persistent atrial fibrillation; R64 Cachexia; B37.49 Other urogenital candidiasis; N39.0 Urinary tract infection, site not specified; Z66 Do not resuscitate; R57.0 Cardiogenic shock; I49.3 Ventricular premature depolarization; I50.84 End stage heart failure; Z68.20 Body mass index [BMI] 20.0-20.9, adult; E87.5 Hyperkalemia; I25.5 Ischemic cardiomyopathy; I25.10 Atherosclerotic heart disease of native coronary artery without angina pectoris; N18.31 Chronic kidney disease, stage 3a; B96.4 Proteus (mirabilis) (morganii) as the cause of diseases classified elsewhere; L89.159 Pressure ulcer of sacral region, unspecified stage; L89.629 Pressure ulcer of left heel, unspecified stage; L89.619 Pressure ulcer of right heel, unspecified stage; K59.09 Other constipation; I45.10 Unspecified right bundle-branch block; I87.2 Venous insufficiency (chronic) (peripheral); I73.9 Peripheral vascular disease, unspecified; Z91.14 Patient's other noncompliance with medication regimen; Z95.5 Presence of coronary angioplasty implant and graft; Z87.01 Personal history of pneumonia (recurrent); Z79.82 Long term (current) use of aspirin; Z88.1 Allergy status to other antibiotic agents
CPT/HCPCS: 36415; 36569; 71045; 76937; 80048; 80053; 81000; 82805; 82947; 83605; 83735; 84100; 84484; 85025; 87081; 87088; 93005; 96365; 96366; 96375